=== PATIENT | male | born 1940 | race Caucasian/White ===

== ENCOUNTER 2021-05-13 12:12 | Inpatient (IN) ==
[2021-05-13] MEDS ORDERED: ACETAMINOPHEN 1,000 MG/100 ML VIAL IV STA (13:43)
[2021-05-13] MEDS ORDERED: SODIUM CHLORIDE 0.9% 1000ML 2,000 ML IV ONE (13:43)
[2021-05-13] MEDS ORDERED: SODIUM CHLORIDE 0.9% 1000ML 1,000 ML IV ONE ×2 (13:50→21:00)
[2021-05-13] MEDS ORDERED: KETOROLAC TROMETHAMINE 15 MG/ML VIAL IV STA (13:50)
--- NOTE | 2021-05-13 14:04 | XRay Report ---
XR chest 1V portable CLINICAL HISTORY: Atypical chest pain COMPARISON STUDY: No previous studies for comparison. FINDINGS: The heart is the upper limits of normal in size. There is no failure. There is no focal pul monary consolidation. There are no pleural effusions.[ IMPRESSION: No active disease in the chest. ACT 112: Negative or not required by law. Electronically signed by: Alen Javed M.D. 05/13/2021 2:03 PM
[2021-05-13 14:21] LABS: Basophils # (auto) 0.01 K/uL (0-0.2); Basophils % (auto) 0.1 %; Eosinophils # (auto) 0.01 K/uL (0-0.5); Eosinophils % (auto) 0.1 %; Hematocrit (blood only) 41.9 % (42-52); Hemoglobin 13.8 g/dL (14.0-18.0); Lymphocytes # (auto) 0.74 K/uL (1.2-3.4); Lymphocytes % (auto) 8.6 %; Mean Corpuscular Hemoglobin 32.8 pg (25-34); Mean Corpuscular Hgb Conc 32.9 g/dL (32-36); Mean Corpuscular Volume 99.5 fL (80-100); Monocytes # (auto) 0.38 K/uL (0.11-0.59); Monocytes % (auto) 4.4 %; Neutrophils # (auto) 7.44 K/uL (1.4-6.5); Neutrophils % (auto) 86.8 %; Platelet Count 145 K/uL (130-400); RDW Coefficient of Variation 13.1 % (11.5-14.5); RDW Standard Deviation 47.5 fL (36.4-46.3); Red Blood Count 4.21 M/uL (4.7-6.1); White Blood Count 8.58 K/uL (4.8-10.8)
[2021-05-13 14:31] LABS: Partial Thromboplastin Ratio 0.9; Partial Thromboplastin Time 24.7 Seconds (21.0-31.0)
[2021-05-13 14:48] LABS: Albumin Level 4.1 gm/dl (3.4-5.0); BUN Creatinine Ratio 29.3 (10-20); Bilirubin Direct 0.1 mg/dl (0-0.2); Calcium 9.1 mg/dl (8.5-10.1); Creatinine Clr Calc Pharmacy 58.6 ml/min; Est GFR (African American) 69.5 ml/min; Magnesium 2.3 mg/dl (1.8-2.4); Potassium 4.8 mmol/L (3.5-5.1)
[2021-05-13 15:02] LABS: Bilirubin,Total 0.5 mg/dl (0.2-1); Thyroid Stimulating Hormone 3.25 uIu/ml (0.300-4.500); Total Protein 8.1 gm/dl (6.4-8.2); Troponin I 0.102 ng/ml (0-0.045)
[2021-05-13] MEDS ORDERED: ASPIRIN CHEW 324 MG PO STA (15:22)
--- NOTE | 2021-05-13 15:28 | Emergency Department Note ---
Impression & Plan Elevated troponin, Back pain, Dizziness ED Provider Note NAME: RO GREENE AGE: 80 SEX: M ARRIVES VIA: Walk-In INFORMANT: Patient, ED PROVIDER(S): Hammad Thurman MD CHIEF COMPLAINT: Back pain, dizziness, sweating PLAN: Disposition: Admit MEDICAL DECISION MAKING: The patient is a pleasant 80-year-old gentleman with a past medical history of hypertension, hyperlipidemia who presents emerge department accompanied by his w josephine after having severe backslash shoulder pain, lightheadedness and diaphoresis approximately noon when he was mowing the lawn for approximately an hour. Patient's reports she came inside and found him on the ground because he felt lying on the ground was cooler and he felt better. Upon arrival the patient denies any current symptoms. He denies any chest pain or shortness of breath associated with the episode. He denies any recent pattern of exertional chest pain. Prior today denies any fevers, chills, cough, congestion, GI or symptoms. On arrival patient is fatigued appearing but no acute distress, afebrile stable vital signs. He is mild reproducible muscular discomfort of the by lateral trapezius muscles. He appears clinically dry. Exam is otherwise unremarkable. EKG shows no overt acute ischemia however does show evidence of inferior infarct. WBC and platelets within normal limits. H/H 13 point/41.9 without prior values for comparison. Chemistry without metabolic acidosis. Electrolytes and LFTs unremarkable. Troponin was marginally elevated at 0.1 without prior values for comparison. Lipase not elevated. TSH within normal limits. Given the patient's symptoms which did occur with exertion and troponin which is mildly elevated 0.1 reasonable to admit the patient for further evaluation. However given the patient is asymptomatic at this time and did not report chest pain less likely to represent acute NE however will continue to trend troponin and monitor symptoms. Additionally, given the patient has not had tearing or pleuritic pain acute aortic pathology or PE is not likely. The patient and his at the bedside are in agreement with plan for admission. Case was discussed with Dr. Phillips, [facility] hospitalist, who will evaluate the patient for admission. Triage Nursing notes reviewed and agree them. Prior medical records reviewed Vital Signs: reviewed and remarkable for no significant abnormalities Differential diagnosis: Infection, dehydration, metabolic abnormality, hypo/hyperglycemia, electrolyte disturbance, anemia, hypoxia, cardiac sources, intracerebral event, toxicologic, neurologic, as well as other pathologies. ER treatment provided: See below. Diagnostics interpreted by me: ECG: Normal sinus rhythm, 65 bpm, no ectopy, evidence of inferior infarct new from prior. No overt ST elevation or depression, QTC 440, QRS 88. Cardiac Monitoring: An order for continuous cardiac monitoring was placed and demonstrated normal sinus rhythm, 65 bpm, no ectopy Laboratory studies: See below Imaging studies: See below Consultation(s): Dr. Phillips, [facility] hospitalist. HPI: The patient is a pleasant 80-year-old gentleman with a past medical history of hypertension, hyperlipidemia who presents emerge department accompanied by his after having severe backslash shoulder pain, lightheadedness and diaphoresis approximately noon when he was mowing the lawn for approximately an hour. Patient's reports she came inside and found him on the ground because he felt lying on the ground was cooler and he felt better. Upon arrival the patient denies any current symptoms. He denies any chest pain or shortness of breath associated with the episode. He denies any recent pattern of exertional chest pain. Prior today denies any fevers, chills, cough, congestion, GI or symptoms. ROS: See above HPI for pertinent positives & negatives. A total of 10 systems reviewed and were otherwise negative. PAST MEDICAL HISTORY:See Below PAST SURGICAL HISTORY:See Below FAMILY HISTORY:See Below SOCIAL HISTORY:See Below HOME MEDICATIONS:See Below ALLERGIES:See Below VITALS:See Below PHYSICAL EXAMINATION: GENERAL: Awake, alert, fatigued-appearing, in no distress HENT: Normocephalic, atraumatic. Oropharynx with dry mucous membranes and otherwise unremarkable. EYES: Normal conjunctiva. Sclera non-icteric. NECK: Supple. No nuchal rigidity. FROM. No JVD. RESPIRATORY: Clear to auscultation. CARDIAC: Regular rate, normal rhythm. Extremities warm and well perfused. Pulses equal. ABDOMEN: Soft, non-distended. No tenderness to palpation. No rebound or guarding. No masses. RECTAL: Deferred. MUSCULOSKELETAL: Chest examination reveals no tenderness. The back is symmetrical on inspection without obvious abnormality. There is no CVA tenderness to palpation. No joint edema. LOWER EXTREMITIES: Calves are equal size bilaterally and non-tender. No edema. No discoloration. NEURO: Normal sensorium. No sensory or motor deficits noted. SKIN: No rash or jaundice noted. Hammad Thurman MD Past Med/Surg History Medical History CKD (chronic kidney disease), stage III Dyslipidemia HTN (hypertension) with goal to be determined Moderate aortic stenosis Surgical History H/O lithotripsy Social History Smoking Status: Former smoker Hx Alcohol Use: No Feels Safe at Home: Yes Allergies Allergies Allergy/AdvReac Type Severity Reaction Status Date / Time No Known Allergies Allergy Unknown Unverified 05/13/21 14:54 [id number] Allergy Unknown . Uncoded 05/13/21 14:54 Home Meds Home Medications Medication Instructions Recorded Confirmed amlodipine 5 mg PO DAILY 05/13/21 05/13/21 aspirin 81 mg PO DAILY 05/13/21 05/13/21 hydrocortisone 1 applic [place] HS 05/13/21 05/13/21 lisinopril 40 mg PO DAILY 05/13/21 05/13/21 simvastatin 20 mg PO DAILY 05/13/21 05/13/21 Results & Data (ED) Vital Signs Vital Signs - 24 hr 05/13/21 12:27 05/13/21 14:16 05/13/21 14:30 Temperature 36 C L Temperature Source Skin Pulse Rate 66 65 62 Pulse Rate [Right Finger] Respiratory Rate 20 14 21 Respiratory Effort / Characteristics Non-Labored Spontaneous Respiratory Depth Normal Blood Pressure 126/71 Blood Pressure [Right Arm] Blood Pressure Mean 89 Blood Pressure Mean [Right Arm] Blood Pressure Position Sitting Blood Pressure Position [Right Arm] Pulse Oximetry 95 Oxygen Delivery Method Room Air Sepsis Recent Fever Within 48 Hours No Sepsis New/Unexplained Change in Mental Status N/A Sepsis Action Taken by Nursing No Action Required 05/13/21 15:19 05/13/21 17:45 05/13/21 17:54 Temperature Temperature Source Pulse Rate Pulse Rate [Right Finger] 74 72 Respiratory Rate 20 17 Respiratory Effort / Characteristics Non-Labored Spontaneous Non-Labored Respiratory Depth Normal Normal Blood Pressure Blood Pressure [Right Arm] 118/65 141/69 H Blood Pressure Mean Blood Pressure Mean [Right Arm] 82 93 Blood Pressure Position Blood Pressure Position [Right Arm] Sitting Sitting Pulse Oximetry 97 95 Oxygen Delivery Method Room Air Room Air Room Air Sepsis Recent Fever Within 48 Hours Sepsis New/Unexplained Change in Mental Status Sepsis Action Taken by Nursing Laboratory Data Attestation: I reviewed the patient's lab results. Result diagrams: 05/13/21 13:44 05/13/21 13:44 Lab Results 05/13/21 05/13/21 05/13/21 Range/Units 13:44 13:44 13:44 WBC 8.58 (4.8-10.8) K/uL RBC 4.21 L (4.7-6.1) M/uL Hgb 13.8 L (14.0-18.0) g/dL Hct 41.9 L (42-52) % MCV 99.5 (80-100) fL MCH 32.8 (25-34) pg MCHC 32.9 (32-36) g/dL RDW Std Deviation 47.5 H (36.4-46.3) fL RDW Coeff of Kaiden 13.1 (11.5-14.5) % Plt Count 145 (130-400) K/uL MPV 11.0 H (7.4-10.4) fL Immature Gran % (Auto) 0.0 % Neut % (Auto) 86.8 % Lymph % (Auto) 8.6 % Linn % (Auto) 4.4 % Eos % (Auto) 0.1 % Baso % (Auto) 0.1 % Neut # (Auto) 7.44 H (1.4-6.5) K/uL Lymph # (Auto) 0.74 L (1.2-3.4) K/uL Linn # (Auto) 0.38 (0.11-0.59) K/uL Eos # (Auto) 0.01 (0-0.5) K/uL Baso # (Auto) 0.01 (0-0.2) K/uL Immature Gran # (Auto) 0.00 (0.00-0.02) K/uL APTT 24.7 (21.0-31.0) Seconds PTT Ratio 0.9 Sodium 140 (136-145) mmol/L Potassium 4.8 (3.5-5.1) mmol/L Chloride 109 H (98-107) mmol/L Carbon Dioxide 25 (21-32) mmol/L Anion Gap 6.0 (3-11) BUN 34 H (7-18) mg/dl Creatinine 1.16 (0.6-1.4) mg/dl Est Cr Clr Drug Dosing 58.6 ml/min Est GFR ( Amer) 69.5 ml/min Est GFR (Non-Af Amer) 60.0 ml/min BUN/Creatinine Ratio 29.3 H (10-20) Glucose 122 H (70-99) mg/dl Calcium 9.1 (8.5-10.1) mg/dl Phosphorus 3.0 (2.5-4.9) mg/dl Magnesium 2.3 (1.8-2.4) mg/dl Total Bilirubin 0.5 (0.2-1) mg/dl Direct Bilirubin 0.1 (0-0.2) mg/dl AST 20 (15-37) U/L ALT 26 (12-78) U/L Alkaline Phosphatase 90 (45-117) U/L Troponin I 0.102 H* (0-0.045) ng/ml Total Protein 8.1 (6.4-8.2) gm/dl Albumin 4.1 (3.4-5.0) gm/dl Globulin 4.0 (2.5-4.0) gm/dl Albumin/Globulin Ratio 1.0 (0.9-2) Lipase 125 (73-393) U/L TSH 3.250 (0.300-4.500) uIu/ml COVID-19 Eval Order SARS-CoV-2 (PCR) (Negative) 05/13/21 05/13/21 Range/Units 16:00 16:00 WBC (4.8-10.8) K/uL RBC (4.7-6.1) M/uL Hgb (14.0-18.0) g/dL Hct (42-52) % MCV (80-100) fL MCH (25-34) pg MCHC (32-36) g/dL RDW Std Deviation (36.4-46.3) fL RDW Coeff of Kaiden (11.5-14.5) % Plt Count (130-400) K/uL MPV (7.4-10.4) fL Immature Gran % (Auto) % Neut % (Auto) % Lymph % (Auto) % Linn % (Auto) % Eos % (Auto) % Baso % (Auto) % Neut # (Auto) (1.4-6.5) K/uL Lymph # (Auto) (1.2-3.4) K/uL Linn # (Auto) (0.11-0.59) K/uL Eos # (Auto) (0-0.5) K/uL Baso # (Auto) (0-0.2) K/uL Immature Gran # (Auto) (0.00-0.02) K/uL APTT (21.0-31.0) Seconds PTT Ratio Sodium (136-145) mmol/L Potassium (3.5-5.1) mmol/L Chloride (98-107) mmol/L Carbon Dioxide (21-32) mmol/L Anion Gap (3-11) BUN (7-18) mg/dl Creatinine (0.6-1.4) mg/dl Est Cr Clr Drug Dosing ml/min Est GFR ( Amer) ml/min Est GFR (Non-Af Amer) ml/min BUN/Creatinine Ratio (10-20) Glucose (70-99) mg/dl Calcium (8.5-10.1) mg/dl Phosphorus (2.5-4.9) mg/dl Magnesium (1.8-2.4) mg/dl Total Bilirubin (0.2-1) mg/dl Direct Bilirubin (0-0.2) mg/dl AST (15-37) U/L ALT (12-78) U/L Alkaline Phosphatase (45-117) U/L Troponin I (0-0.045) ng/ml Total Protein (6.4-8.2) gm/dl Albumin (3.4-5.0) gm/dl Globulin (2.5-4.0) gm/dl Albumin/Globulin Ratio (0.9-2) Lipase (73-393) U/L TSH (0.300-4.500) uIu/ml COVID-19 Eval Order Covid19 at [facility] SARS-CoV-2 (PCR) NEGATIVE (Negative) Administered Medications Discontinued Medications Aspirin (Aspirin Chew 324 Mg) 324 mg PO NOW STA Stop: 05/13/21 15:23 Last Admin: 05/13/21 15:59 Dose: 324 mg Documented by: [id number] Sodium Chloride (Nss 1000ml) 2,000 mls @ 999 mls/hr IV .Q2H1M ONE Stop: 05/13/21 15:43 Last Infusion: 05/13/21 16:20 Dose: 0 mls/hr Documented by: [id number] Admin: 05/13/21 14:18 Dose: 999 mls/hr Documented by: [id number] Acetaminophen (Ofirmev) 1,000 mg in 100 mls @ 400 mls/hr IV NOW STA Stop: 05/13/21 13:57 Last Admin: 05/13/21 14:22 Dose: Not Given Documented by: [id number] Sodium Chloride (Nss 1000ml) 1,000 mls @ 999 mls/hr IV .Q1H1M ONE Stop: 05/13/21 14:50 Last Infusion: 05/13/21 15:59 Dose: 0 mls/hr Documented by: [id number] Admin: 05/13/21 14:16 Dose: 999 mls/hr Documented by: [id number] Ketorolac Tromethamine (Ketorolac Tromethamine 15 Mg/Ml Vial) 15 mg IV NOW STA Stop: 05/13/21 13:51 Last Admin: 05/13/21 14:15 Dose: 15 mg Documented by: [id number] Imaging Data Radiologist's Impression: Chest X-Ray 05/13/21 13:44 XR chest 1V portable CLINICAL HISTORY: Atypical chest pain COMPARISON STUDY: No previous studies for comparison. FINDINGS: The heart is the upper limits of normal in size. There is no failure. There is no focal pulmonary consolidation. There are no pleural effusions.[ IMPRESSION: No active disease in the chest. ACT 112: Negative or not required by law. Electronically signed by: Alen Javed M.D. 05/13/2021 2:03 PM Discharge Plan Visit Data Chief Complaint: Illness Stated Complaint: MOWING GRASS/EXHAUSTION/SWEATING/ACHEY ED Provider: Hammad Thurman Discharge Problem: Elevated troponin, Back pain, Dizziness Discharge Instructions Interventions: ED Discharge Assessment Last Done: 05/13/21 17:54 Forms Stand Alone Forms: [facility] Prescriptions Prescriptions: No Action amlodipine 5 mg tablet 5 mg PO DAILY RF: 0 hydrocortisone 2.5 % cream with perineal applicator 1 applic [place] HS RF: 0 lisinopril 40 mg tablet 40 mg PO DAILY RF: 0 simvastatin 20 mg tablet 20 mg PO DAILY RF: 0 aspirin 81 mg PO DAILY RF: 0 Referrals Referrals: Sai Mason MD [Primary Care Provider] - Discharge Problem: Back pain Qualifiers: Back pain location: thoracic back pain Chronicity: acute Back pain laterality: bilateral Qualified Code(s): M54.6 - Pain in thoracic spine
--- NOTE | 2021-05-13 15:30 | Electrocardiogram Report ---
Test Reason : Blood Pressure : / mmHG Vent. Rate : 065 BPM Atrial Rate : 065 BPM P-R Int : 186 ms QRS Dur : 088 ms QT Int : 424 ms P-R-T Axes : 021 043 055 degrees QTc Int : 440 ms Normal sinus rhythm Poor R wave progression, consider anterior NH vs. lead placement vs. LVH Early repolarization Abnormal ECG When compared with ECG of 22-NOV-2003 09:59, No significant change Confirmed by Damian Murillo ([id number]) on 05/13/2021 3:29:58 PM Referred By: REFERRED SELF Confirmed By:Damian Murillo
--- NOTE | 2021-05-13 15:44 | History & Physical Report ---
Date of Service May 13, 2021 Assessment & Plan (1) Elevated troponin: Elevated Troponin R/O ACS Risk factors: H/O HTN, HLP, Former Tobacco use disorder, Obesity Initial troponin:0.1 EKG shows: Normal sinus rhythm, poor R wave progression, early repolarization. QTc 440 CXR: Last ECHO: EF: 60 to 64%, grade 1 diastolic dysfunction, mild aortic regurgitation, moderate aortic stenosis. Trend serial cardiac enzymes, repeat EKG, fasting lipid panel in AM Continue Aspirin, statins Oxygen PRN NPO after midnight Cardiology consult Consider to start IV heparin if troponin trends upwards or if patient develops chest pain Repeat EKG in AM Right Shoulder Pain Likely musculoskeletal origin Reproducible pain Consider imaging if needed Hypertension Continue lisinopril, amlodipine Hyperlipidemia Continue statin CKD stage III Baseline creatinine 1.2-1.3 Cr at baseline Monitor renal function DVT Px: Heparin SQ CODE STATUS Full code Disposition Expected discharge home when medically stable. History of Present Illness Chief Complaint: Shoulder Pain, Elevated Troponin Primary Care Provider: Sai Mason MD Patient is a 80-year-old male with history of CKD stage III, hypertension, moderate aortic stenosis, hearing impairment, macular degeneration of right eye and other medical problems presents with history of fatigue, diaphoresis, right shoulder pain which started this afternoon. Patient admits to moving his lawn for about 1 hour and felt extremely exhausted, associated with diaphoresis and right shoulder pain resulting in to lay on the floor which helped with the symptoms. He also states having nausea and chills but no vomiting. He denies any coronary artery disease in the past. Right shoulder pain is achy,7/10, nonradiating, no aggravating or relieving factors, not associated with tingling or numbness in her fingers. He was noted to have elevated troponins while in ED but denied any chest pain. Denies any history of Dyspnea, Fall, syncopal episode, loss of consciousness, trauma to right shoulder, palpitations, dizziness, cough, fever, chills, head trauma, headache, vomiting, abdominal pain, diarrhea, dysuria, hematuria, recent change in medications. Allergies Allergy/AdvReac Type Severity Reaction Status Date / Time No Known Allergies Allergy Unknown Unverified 05/13/21 14:54 [id number] Allergy Unknown . Uncoded 05/13/21 14:54 Home Medications Medication Instructions Recorded Confirmed Type amlodipine 5 mg PO DAILY 05/13/21 05/13/21 History aspirin 81 mg PO DAILY 05/13/21 05/13/21 History hydrocortisone 1 applic [place] HS 05/13/21 05/13/21 History lisinopril 40 mg PO DAILY 05/13/21 05/13/21 History simvastatin 20 mg PO DAILY 05/13/21 05/13/21 History Past Med/Surg History Medical History CKD (chronic kidney disease), stage III Dyslipidemia HTN (hypertension) with goal to be determined Moderate aortic stenosis Surgical History H/O lithotripsy Social History Smoking Status: Former smoker Hx Alcohol Use: No Feels Safe at Home: Yes Review of Systems Review of Systems: All systems reviewed & are unremarkable except as noted in HPI & below Physical Exam Physical Exam: Physical Exam: Vitals signs as noted above General Appearance:Moderately built and nourished, no apparent distress Head: normocephalic, Atraumatic Eyes: normal inspection, EOMI Neck: supple, Trachea midline Respiratory/Chest: Decrease breath sounds, CTA, No accessory muscle use Cardiovascular: S1, S2, + murmur Abdomen/GI:Soft, Non tender, Bowel sounds present Extremities/Musculoskeletal:normal inspection, no edema, R shoulder tender Neurologic/Psych:AAOX3, grossly no focal neurological deficits Skin: normal color, warm Results & Data Results & Data ([facility]) Vital Signs (Past 12 Hours) Vital Signs Temp Pulse Pulse Resp BP BP Pulse Ox 05/13/21 15:19 74 20 118/65 97 05/13/21 14:30 62 21 05/13/21 14:16 65 14 05/13/21 12:27 36 C L 66 20 126/71 95 Laboratory Results Short CBC 05/13/21 Range/Units 13:44 WBC 8.58 (4.8-10.8) K/uL Hgb 13.8 L (14.0-18.0) g/dL Hct 41.9 L (42-52) % Plt Count 145 (130-400) K/uL BMP 05/13/21 13:44 Sodium 140 Potassium 4.8 Chloride 109 H Carbon Dioxide 25 BUN 34 H Creatinine 1.16 Glucose 122 H Calcium 9.1 Cardiac Enzymes 05/13/21 Range/Units 13:44 Troponin I 0.102 H* (0-0.045) ng/ml Liver Function 05/13/21 Range/Units 13:44 Total Bilirubin 0.5 (0.2-1) mg/dl Direct Bilirubin 0.1 (0-0.2) mg/dl AST 20 (15-37) U/L ALT 26 (12-78) U/L Alkaline Phosphatase 90 (45-117) U/L Albumin 4.1 (3.4-5.0) gm/dl Diagnostic Findings CXR: No active disease in the chest. ECG Additional Comments: EKG: Normal sinus rhythm, poor R wave progression, early repolarization.
[2021-05-13] MEDS ORDERED: POLYETHYLENE (MIRALAX) 17 GM PACK PO PRN (18:32)
[2021-05-13] MEDS ORDERED: ACETAMINOPHEN 325 MG TAB PO PRN (18:32)
[2021-05-13] MEDS ORDERED: ONDANSETRON INJ 2 MG/ML 2 ML VIAL IV PRN (18:32)
[2021-05-13] MEDS ORDERED: NITROGLYCERIN SL 0.4 MG/TAB TAB SL PRN (18:32)
[2021-05-13] MEDS ORDERED: SIMVASTATIN 20 MG TAB PO SCH (21:00)
[2021-05-13] MEDS ORDERED: Heparin IV Adult Wt-Based Standard WITH Bolus Protocol IV SCH (21:18)
[2021-05-13] MEDS ORDERED: HEPARIN SOD (PORCINE) 1000 UNIT/ML IV ONE (21:32)
[2021-05-13] MEDS ORDERED: HEPARIN SOD 5,000 UNIT/0.5 ML VIAL SQ SCH (22:00)
[2021-05-13] MEDS: HEPARIN SODIUM/DEXTROSE 25,000 UNITS/500 ML BAG IV SCH (22:34)
[2021-05-13 23:40] LABS: Appearance Urine Clear (Clear); Bilirubin Urine Negative (Negative); Blood Urine Negative (Negative); Color Urine Yellow; Glucose Urine UA Negative (Negative); Ketones Urine Trace (Negative); Leukocyte Esterase Urine Negative (Negative); Nitrite Urine Negative (Negative); Protein Urine Negative (Negative); Specific Gravity Urine 1.016 (1.000-1.030); Urobilinogen Urine Negative (Negative)
[2021-05-14 05:06] LABS: Hematocrit (blood only) 37.6 % (42-52); Hemoglobin 12.3 g/dL (14.0-18.0); Mean Corpuscular Hemoglobin 32.4 pg (25-34); Mean Corpuscular Hgb Conc 32.7 g/dL (32-36); Mean Corpuscular Volume 98.9 fL (80-100); Mean Platelet Volume 10.9 fL (7.4-10.4); Platelet Count 133 K/uL (130-400); RDW Coefficient of Variation 13.2 % (11.5-14.5); RDW Standard Deviation 47.6 fL (36.4-46.3); White Blood Count 6.04 K/uL (4.8-10.8)
[2021-05-14 05:27] LABS: Partial Thromboplastin Ratio > 5.3
[2021-05-14 05:35] LABS: BUN Creatinine Ratio 26.3 (10-20); Calcium 8.4 mg/dl (8.5-10.1); Creatinine Clr Calc Pharmacy 62.3 ml/min; Est GFR (Non-African American) 64.7 ml/min; Potassium 4.5 mmol/L (3.5-5.1)
[2021-05-14 06:00] LABS: Troponin I 14.5 ng/ml (0-0.045)
[2021-05-14 06:05] LABS: Partial Thromboplastin Time > 139.0 Seconds (21.0-31.0)
[2021-05-14 06:29] LABS: Estimated Average Glucose 140 mg/dl; Hemoglobin A1C 6.5 % (4.5-5.6)
[2021-05-14] MEDS ORDERED: Nursing to Pharmacy Communication SCH (06:30)
[2021-05-14] MEDS ORDERED: PERFLUTREN LIPID MICROSPHERE (DEFINITY) IV ONE (07:09)
[2021-05-14] MEDS: lisinopril 40 MG TAB PO SCH (08:31)
[2021-05-14] MEDS: amLODIPine BESYLATE 5 MG TAB PO SCH (08:32)
[2021-05-14] MEDS: ASPIRIN 81 MG ECTAB PO SCH (08:32)
[2021-05-14] MEDS: METOPROLOL TARTRATE 25 MG TAB PO SCH ×2 (08:32→20:10)
[2021-05-14 09:03] LABS: Partial Thromboplastin Ratio 2.4
[2021-05-14 09:08] LABS: Partial Thromboplastin Time 62.6 Seconds (21.0-31.0)
--- NOTE | 2021-05-14 09:23 | Cardiology Consultation ---
Date of Consultation May 14, 2021 Assessment & Plan (1) Non-ST elevation (NSTEMI) myocardial infarction: Risk, benefits, alternatives to cardiac catheterization discussed with patient. He is agreeable to proceed with coronary angiography left heart catheterization this a.m. Intravenous heparin we placed on hold. Review of resting 2D transthoracic echocardiogram with regional wall motion abnormalities suggesting ischemic heart disease as described above. Continue beta-radha, aspirin, and YANI inhibitor. Discontinue simvastatin in favor of atorvastatin 80 mg daily. (2) Moderate aortic stenosis: Aortic valve systolic gradients have progressed when compared to most recent echocardiogram available [facility] medical [facility]. (3) HTN (hypertension) with goal to be determined: Fair control. Continue beta-radha and YANI inhibitor. (4) CKD (chronic kidney disease), stage III: Continue IV hydration. History of Present Illness Reason for Consultation: NSTEMI Requesting Physician: Dr. Burgess Attending Physician: Isaias Burgess DO History of Present Illness 80-year-old patient presented to the emergency department with interscapular discomfort or shortness of breath. Patient mowing his lawn yesterday when he developed interscapular discomfort, shortness of breath, and diaphoresis. He came in the house and lie down. Took 2 Tylenol with mild improvement. Proceeded to the ER for further evaluation. Initial ECG with lateral ST elevation deemed early repolarization. Troponin trending upward overnight. Preliminary review of resting 2D transthoracic echocardiogram performed this a.m. demonstrates a lateral, posterior lateral, apical wall motion abnormality with mildly reduced LV systolic function. There is moderate aortic valve stenosis. Patient is currently resting comfortably. Notes occasional exertional chest discomfort and shortness of breath over the preceding months. No orthopnea, PND, or lower extremity edema. Denies palpitations, lightheadedness, dizziness, syncope, or near syncope. Allergies Allergy/AdvReac Type Severity Reaction Status Date / Time No Known Allergies Allergy Unknown Unverified 05/13/21 14:54 [id number] Allergy Unknown . Uncoded 05/13/21 14:54 Home Medications Medication Instructions Recorded Confirmed Type amlodipine 5 mg PO DAILY 05/13/21 05/13/21 History hydrocortisone 1 applic [place] HS 05/13/21 05/13/21 History lisinopril 40 mg PO DAILY 05/13/21 05/13/21 History aspirin 81 mg PO DAILY #90 tab 05/15/21 Rx atorvastatin 80 mg PO QAM #30 tab 05/15/21 Rx metoprolol tartrate 12.5 mg PO BID #30 tab 05/15/21 Rx nitroglycerin [Nitrostat] 0.4 mg SUBLINGUAL UD PRN #30 tab 05/15/21 Rx Patient History Medical History CKD (chronic kidney disease), stage III Dyslipidemia HTN (hypertension) with goal to be determined Moderate aortic stenosis Surgical History H/O lithotripsy Social History Smoking Status: Never smoker Hx Alcohol Use: No Hx Substance Use: No Communication Ability: Effective Beliefs That Will Affect Care: None Current Living Situation: Spouse Other Information That Helps Us Care for You: Yes Feels Safe at Home: Yes Safety Concerns: Feels Safe At This Time Assistive Devices: None Review of Systems Review of Systems: All systems reviewed & are unremarkable except as noted in Subjective Physical Exam Constitutional: well developed and well nourished; no acute distress Respiratory: normal respiratory effort; no respiratory distress, no labored breathing and no retractions Auscultation: lungs clear to auscultation bilaterally; no crackles, no rales, no rhonchi and no wheezes Cardiovascular: Rate/Rhythm: regular rate and regular rhythm Heart Sounds: normal S1, normal S2 and + murmur (3/6 PERLITA) Vessels: femoral pulses present and radial pulses present; no JVD Extremities: no edema Gastrointestinal (Abdomen): Inspection/Auscultation: abdomen normal to inspection and normal bowel sounds; abdomen not distended Percussion/Palpation: abdomen soft; abdomen nontender, no guarding and abdomen not rigid Neurologic: CN's II-XI intact bilaterally and moves all extremities; no focal motor deficits Motor/Sensory: no tremor Psychiatric: A+Ox3, euthymic affect Results & Data ([facility]) Vital Signs (Past 12 Hours) Vital Signs Temp Pulse Pulse Resp BP Pulse Ox 05/14/21 07:36 37.0 C 68 20 148/86 H 95 05/14/21 04:03 36.6 C 67 18 137/78 94 05/13/21 23:37 72 05/13/21 22:59 36.6 C 72 18 149/70 H 95
--- NOTE | 2021-05-14 09:26 | Hospitalist Progress Note ---
Date of Service May 14, 2021 Assessment & Plan (1) Elevated troponin: Rising Troponin/NSTEMI Risk factors: H/O HTN, HLP, Former Tobacco use disorder, Obesity Initial troponin:0.1 EKG shows: Normal sinus rhythm, poor R wave progression, early repolarization. QTc 440 CXR: Last ECHO: EF: 60 to 64%, grade 1 diastolic dysfunction, mild aortic regurgitation, moderate aortic stenosis. Trend serial cardiac enzymes, repeat EKG, fasting lipid panel in AM Continue Aspirin, statins Oxygen PRN NPO Cardiology on case Echo done IV heparin Right Shoulder Pain Likely musculoskeletal origin Hypertension Continue lisinopril, amlodipine Hyperlipidemia Continue statin CKD stage III Baseline creatinine 1.2-1.3 Cr at baseline Monitor renal function DVT Px: IV Heparin CODE STATUS Full code Disposition DC home when medically stable. Labs checked ROS-No Headache, No Visual Changes, No Nausea, No Vomiting, No Fever, No Chills, No Neck Pain or Stiffness, No Chest Pain, No Palpitations, No SOB, No ARIZMENDI, No Cough, No Sputum, No Wheezing, No Abdominal Pain, No Diarrhea, No Hematemesis, No Hemoptysis, No Unexpected Weight Loss, No Flank pain, No Melena, No Hematochezia, No Frequency, No Urgency, No Burning, No Hematuria, No Rashes, No Diaphoresis. Appetite is Normal Physical Exam Gen-AAO x 3, NAD, Afebrile Head-NCAT, EOMI, PERRLA, Anicteric Sclera, No Posterior Pharyngeal Erythema Neck-Supple, No JVD, No Thyromegaly, No Masses, No LAD, No Bruits Lungs-Clear to Auscultation Bilaterally, No Rales, No Rhonchi, No Wheezing, No Crepitus Chest-No S4, +S1, +S2, No S3, No Murmurs, No Rubs, No Gallops, No Ectopy Abdomen-Soft, Bowel Sounds Present, Non Tender, Non Distended, No Hepatomegaly, No Splenomegaly, No Palpable Masses, No Rebound, No Rigidity, No Guarding Musculoskeletal-Full Range of Motion Bilaterally, No CVAT Extremities-No Cyanosis, No Clubbing, No Edema Nuero-Cranial Nerves II-XII grossly intact, Motor WNL, DTRs WNL, Strength WNL, Non Focal Psych-Normal Mood Admission and Anticipated Discharge Date Admission Date: May 13, 2021 Results & Data Results & Data ([facility]) Vital Signs (Past 12 Hours) Vital Signs Temp Pulse Pulse Resp BP Pulse Ox 05/14/21 07:36 37.0 C 68 20 148/86 H 95 05/14/21 04:03 36.6 C 67 18 137/78 94 05/13/21 23:37 72 05/13/21 22:59 36.6 C 72 18 149/70 H 95
--- NOTE | 2021-05-14 09:31 | XRay Report ---
XR chest 1V portable HISTORY: 80 years-old Male sob acute shortness of breath COMPARISON: Chest radiograph 05/13/2021 TECHNIQUE: Portable AP view of the chest FINDINGS: Cardiac mediastinal and hilar silhouettes are within normal limits. No pneumothorax, pleural effusion , airspace consolidation or overt pulmonary edema. The bones of the chest appear grossly intact. IMPRESSION: No acute process. ACT 112: Negative or not required by law. The above report was generated using voice recognition software. It may contain grammatical, syntax o r spelling errors. Electronically signed by: Ravi Rodriguez M.D. 05/14/2021 9:30 AM
[2021-05-14] MEDS: ATORVASTATIN 40 MG TAB PO SCH (10:21)
[2021-05-14] MEDS ORDERED: niCARdipine HCL INJ 2.5 MG/ML 10 ML AMP ONE (10:55)
[2021-05-14] MEDS ORDERED: fentaNYL citrate 100 MCG/2 ML VIAL ONE ×2 (10:55→12:44)
[2021-05-14] MEDS ORDERED: HEPARIN (PORCINE) 1000 UNIT/ML 10 ML (CATH LAB USE ONLY) ONE ×2 (10:55→13:11)
[2021-05-14] MEDS ORDERED: MIDAZOLAM HCL 1 MG/ML 2ML VIAL ONE ×3 (10:55→12:44)
[2021-05-14] MEDS ORDERED: NITROGLYCERIN/D5W 100MCG/ML 20ML SYR ONE (10:56)
--- NOTE | 2021-05-14 11:12 | Pre Anesthesia Assessment ---
Date of Service May 14, 2021 Pre Sedation Assessment Vital Signs Temp Pulse Pulse Resp BP BP Pulse Ox 05/15/21 07:58 36.7 C 71 18 127/72 96 05/15/21 07:51 37.0 C 75 18 117/71 143/83 H 95 05/15/21 07:24 89 05/15/21 04:02 37.0 C 75 18 117/71 95 05/15/21 00:20 67 05/14/21 23:33 36.8 C 70 18 137/78 94 05/14/21 20:03 36.7 C 84 18 148/83 H 94 05/14/21 17:35 36.6 C 73 20 150/79 H 95 05/14/21 16:00 36.6 C 65 20 156/87 H 96 05/14/21 15:34 63 20 143/83 H 95 05/14/21 15:05 72 20 172/83 H 96 05/14/21 15:00 71 05/14/21 14:55 84 20 151/76 H 95 05/14/21 14:30 62 18 132/67 98 05/14/21 14:15 61 18 129/70 98 05/14/21 14:00 59 L 18 130/65 98 05/14/21 13:45 65 18 137/66 98 Cardiovascular + regular rate and + regular rhythm + murmur Respiratory normal respiratory effort, lungs clear to auscultation Pre-Sedation Airway Assessment Smoking Status: Never smoker Hx Sleep Apnea: No Short, Thick Neck: No Thyromental Distance: > or= 3.5 Finger Breadths Oral Cavity: + Dentures Mallampati Class: III ASA: ASA4 NPO Status Date of Last Intake of Fluids: 05/13/21 Date of Last Intake of Solid Food: 05/13/21 Procedure Planning Contraindications for Sedation: none Current Medications Reviewed: Yes Notes The planned sedation has been discussed with the patient. Informed Consent was obtained. I have identified the patient, determined the appropriateness of sedation and have assessed the patient immediately prior to the procedure. All medicine(s) and interventions are by my order.
--- NOTE | 2021-05-14 12:12 | Post Anesthesia Assessment ---
Date of Service May 14, 2021 Post Sedation Assessment Vital Signs Temp Pulse Pulse Resp BP BP Pulse Ox 05/15/21 07:58 36.7 C 71 18 127/72 96 05/15/21 07:51 37.0 C 75 18 117/71 143/83 H 95 05/15/21 07:24 89 05/15/21 04:02 37.0 C 75 18 117/71 95 05/15/21 00:20 67 05/14/21 23:33 36.8 C 70 18 137/78 94 05/14/21 20:03 36.7 C 84 18 148/83 H 94 05/14/21 17:35 36.6 C 73 20 150/79 H 95 05/14/21 16:00 36.6 C 65 20 156/87 H 96 05/14/21 15:34 63 20 143/83 H 95 05/14/21 15:05 72 20 172/83 H 96 05/14/21 15:00 71 05/14/21 14:55 84 20 151/76 H 95 05/14/21 14:30 62 18 132/67 98 05/14/21 14:15 61 18 129/70 98 05/14/21 14:00 59 L 18 130/65 98 05/14/21 13:45 65 18 137/66 98 Recovery Score Activity: Moves 4 extremities Respiration: Deep Breath/Cough Circulation: +/-20% PreAnes Value Consciousness: Arouseable (by name) Oxygen Saturation: > 92% On Room Air Discharge Sedation Level of Care: Phase I Post Sedation Plan On clinical assessment, the patient appears to have tolerated the sedation without complications. Patient is recovering as anticipated. Patient will continue to be monitored by nursing and may be discharged when sedation discharge criteria are met per below protocol. Upon Completions of procedure up to 15 minutes continue every 5 minute vital signs and the P.A.R. score; then discharge to a Phase I or Fast Track to Phase II per the following guidelines: * Discharge Patient to appropriate Phase II area if PAR is 8 or greater or return to pre- procedure baseline. The post - procedure orders will be as directed. * If PAR score is less than 8 or not return to pre-procedure baseline then patient will follow Phase I monitoring till PAR is reached for Phase II. The Phase I may be done in procedure room or may call to secure a Phase I area. * If naloxone or flumazenil are used for reversal, hold in Phase I for continued monitoring from when last reversal dose was given for a minimum of 60 minutes or longer pending the nurse and/or physician discretion of patient condition before discharge to Phase II. Please call the Sedation Physician to re-evaluate and complete post-note for discharge to Phase II area. Do NOT discharge from procedure sedation or Phase 1 until post- sedation evaluation note is complete by procedure /sedation MD Sedation Discharge Instructions to be given to the patient at discharge to home.
--- NOTE | 2021-05-14 12:16 | Cardiac Catheterization ---
Cardiac Cath Procedure Full Procedure Date May 14, 2021 Pre-Procedure Diagnosis Pre-Procedure Diagnosis: Non STEMI and Valvular Disease AUC Score AUC Score: 8 Post-Procedure Diagnosis Post-Procedure Diagnosis: Severe CAD Procedure(s) Performed Procedure(s) Performed: Coronary Angiography and Aortography [employer] Jeff Sommers DO [employer] Developer(s) Nate RTR Estimated Blood Loss Estimated Blood Loss: 15cc Medication(s) Medication(s): Fentanyl, Heparin, Lidocaine 1%, Nicardipine, Nitroglycerin and Versed Summary of Findings Left main is a large vessel which bifurcates into the left anterior descending and left circumflex. The left main is free of significant obstructive disease. The left anterior descending artery is a large type III vessel which wraps around the left ventricular apex and supplies the distal inferior wall. The first diagonal branch vessel is diminutive, 1 mm diameter. The second diagonal branch vessel is moderate caliber, bifurcating proximally. Left anterior descending artery demonstrates diffuse luminal irregularities in the proximal and mid segment with stenosis ranging from 10-20%. The diagonal branch vessels are free of significant disease. The left circumflex is a large-caliber vessel giving rise to a first large obtuse marginal branch vessel perfusing the anterior lateral wall. The vessel courses along the AV groove and is occluded in its mid segment. The distal vessel fills with LUPE I flow. The obtuse marginal branch vessel is free of significant obstructive disease, demonstrating mild luminal irregularities, 10%. The right coronary artery was visualized via nonselective aortic root injection. The proximal and mid vessel is suboptimally visualized, however, no significant stenosis. Multiple catheters were utilized in an attempt to cannulate the right coronary artery including JR4, JR 5, 3 DRC, AR-1, [place] multipurpose catheter, August multipurpose catheter. Hemodynamics Rest Ao:: 117/67/88 Final Ao: 129/66/92 LV: N/A Recommendations Recommendations: Management Recommendatons (Attempt cannulation of the right coronary artery with 3 DRC interventional guide. If no significant disease, recommend percutaneous intervention of the left circumflex.) Specimens Specimens: None Radiation Exposure (mGy) 1468 Contrast (mls) 80 Fluids (cc crystalloids) Fluids (cc crystalloids): 140 Nss Drains Drains: N/a Anesthesia Moderate sedation. Start 1117. End 1207. 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 Any exceptions are noted below. ACC Data: Acid Splicer Cardiac Status Clinical evaluation leading to the procedure CAD Presenation: Non STEMI Anginal Classification: CCS IV Heart Failure: No Cardiogenic Shock within 24 Hours: No Cardiac Arrest within 24 Hours: No Imaging Studies Past 6 Months: Yes Stress Studies Past 6 Months: No STEMI OR Non-STEMI Symptom Onset Date: 05/13/21 Symptom Onset Time: 14:22 Thrombolytics: No Coronary Anatomy Dominant: Right Left Main (% Stenosis): Normal LAD (% Stenosis): Mid (Mild luminal irregularities, 10-20%.) D1 (% Stenosis): Normal (Small, 1 mm vessel) D2 (% Stenosis): Normal (Bifurcates proximally) Circumflex (% Stenosis): Mid (100%) OM1 (% Stenosis): Normal RCA (% Stenosis): Proximal (No significant disease visualized on subselective injection (aortic root injection) in the proximal and mid segment. Distal vessel was not well visualized.) Diagnostic Physicians Name: Jeff Sommers DO Status: Urgent Closure Device Recommendations: Management Recommendatons (Attempt cannulation of the right coronary artery with 3 DRC interventional guide. If no significant disease, recommend percutaneous intervention of the left circumflex.) Intraprocedure Events Significant Disection: No Perforation: No
--- NOTE | 2021-05-15 05:53 | Electrocardiogram Report ---
Test Reason : Blood Pressure : / mmHG Vent. Rate : 066 BPM Atrial Rate : 066 BPM P-R Int : 182 ms QRS Dur : 090 ms QT Int : 396 ms P-R-T Axes : 044 058 062 degrees QTc Int : 415 ms Sinus rhythm with occasional Premature ventricular complexes Possible inferolateral infarct Cannot rule out Anterior infarct (cited on or before 13-MAY-2021) Abnormal ECG When compared with ECG of 13-MAY-2021 14:10, Premature ventricular complexes are now Present ST less elevated in Inferolateral leads Confirmed by Romaine Tay ([id number]) on 05/15/2021 5:52:53 AM Referred By: REFERRED SELF Confirmed By:Romaine Tay
--- NOTE | 2021-05-15 05:58 | Electrocardiogram Report ---
Test Reason : Blood Pressure : / mmHG Vent. Rate : 063 BPM Atrial Rate : 063 BPM P-R Int : 184 ms QRS Dur : 100 ms QT Int : 428 ms P-R-T Axes : 061 061 072 degrees QTc Int : 437 ms Normal sinus rhythm Possible inferolateral infarct Cannot rule out Anterior infarct (cited on or before 13-MAY-2021) Nonspecific T wave abnormality Abnormal ECG When compared with ECG of 13-MAY-2021 21:28, Premature ventricular complexes are no longer Present Confirmed by Romaine Tay ([id number]) on 05/15/2021 5:58:06 AM Referred By: REFERRED SELF Confirmed By:Romaine Tay
[2021-05-15 06:43] LABS: Hematocrit (blood only) 38.1 % (42-52); Hemoglobin 12.4 g/dL (14.0-18.0); Mean Corpuscular Hemoglobin 32.2 pg (25-34); Mean Corpuscular Hgb Conc 32.5 g/dL (32-36); Mean Platelet Volume 10.8 fL (7.4-10.4); Platelet Count 130 K/uL (130-400); RDW Coefficient of Variation 13.2 % (11.5-14.5); RDW Standard Deviation 47.7 fL (36.4-46.3); Red Blood Count 3.85 M/uL (4.7-6.1)
[2021-05-15 07:19] LABS: BUN Creatinine Ratio 23.9 (10-20); Calcium 8.5 mg/dl (8.5-10.1); Creatinine Clr Calc Pharmacy 62.8 ml/min; Est GFR (African American) 76.7 ml/min; Est GFR (Non-African American) 66.1 ml/min; Potassium 4.4 mmol/L (3.5-5.1)
--- NOTE | 2021-05-15 07:41 | Discharge Summary ---
Date of Service May 15, 2021 Admission HPI Per Admitting Provider Patient is a 80-year-old male with history of CKD stage III, hypertension, moderate aortic stenosis, hearing impairment, macular degeneration of right eye and other medical problems presents with history of fatigue, diaphoresis, right shoulder pain which started this afternoon. Patient admits to moving his lawn for about 1 hour and felt extremely exhausted, associated with diaphoresis and right shoulder pain resulting in to lay on the floor which helped with the symptoms. He also states having nausea and chills but no vomiting. He denies any coronary artery disease in the past. Right shoulder pain is achy,7/10, nonradiating, no aggravating or relieving factors, not associated with tingling or numbness in her fingers. He was noted to have elevated troponins while in ED but denied any chest pain. Denies any history of Dyspnea, Fall, syncopal episode, loss of consciousness, trauma to right shoulder, palpitations, dizziness, cough, fever, chills, head trauma, headache, vomiting, abdominal pain, diarrhea, dysuria, hematuria, recent change in medications. Admission Exam Per Admitting Provider Physical Exam: Vitals signs as noted above General Appearance:Moderately built and nourished, no apparent distress Head: normocephalic, Atraumatic Eyes: normal inspection, EOMI Neck: supple, Trachea midline Respiratory/Chest: Decrease breath sounds, CTA, No accessory muscle use Cardiovascular: S1, S2, + murmur Abdomen/GI:Soft, Non tender, Bowel sounds present Extremities/Musculoskeletal:normal inspection, no edema, R shoulder tender Neurologic/Psych:AAOX3, grossly no focal neurological deficits Skin: normal color, warm Principal Diagnosis Rising Troponin/NSTEMI Right Shoulder Pain Hypertension Hyperlipidemia CKD stage III Discharge Exam See below Discharge Data Allergies Allergy/AdvReac Type Severity Reaction Status Date / Time No Known Allergies Allergy Unknown Unverified 05/13/21 14:54 [id number] Allergy Unknown . Uncoded 05/13/21 14:54 Consultations 05/13/21 15:22 ED Decision to Admit Stat 05/13/21 18:32 Consult Cardiology Routine 05/14/21 09:24 Consult Cardiac Catheterization Routine Procedures Performed Operation Date: 05/14/21 11:00 Actual Procedures p Cineradiography w/Routine Exam - Jeff Sommers DO p Cath, Left with Cors and Vent - Jeff Sommers, DO p POBA SGL Vessel - Shun Smallwood MD s Ultrasound Vascular Access - Shun Smallwood MD s Aortogram, Thoracic - Shun Smallwood MD s Placement Art Occlusive Device - Shun Smallwood MD Ordered Studies 05/14/21 10:47 CL Cath Imgs for PACS use only Routine Current Diagnoses Other specified abnormalities of plasma proteins (05/14/21) Allergies No Known Allergies Allergy (Unknown, Unverified 05/13/21 14:54) [id number] Allergy (Unknown, Uncoded 05/13/21 14:54) . Height/Weight/Isolation Height 5 ft 8 in Weight 92.4 kg Chemistry 05/13/21 05/14/21 05/15/21 13:44 04:48 06:25 Sodium 140 142 140 Potassium 4.8 4.5 4.4 Chloride 109 H 114 H 111 H Carbon Dioxide 25 27 25 Anion Gap 6.0 1.0 L 4.0 BUN 34 H 29 H 26 H Creatinine 1.16 1.09 1.07 Glucose 122 H 110 H 105 H Urinalysis 05/13/21 23:20 Urine Color Yellow Urine Appearance Clear Urine pH 7.0 Ur Specific [place] 1.016 Urine Protein Negative Urine Glucose (UA) Negative Urine Ketones Trace H Urine Blood Negative Urine Nitrite Negative Urine Bilirubin Negative Hospital Course (1) Elevated troponin: Rising Troponin/NSTEMI Risk factors: H/O HTN, HLP, Former Tobacco use disorder, Obesity Initial troponin:0.1 EKG shows: Normal sinus rhythm, poor R wave progression, early repolarization. QTc 440 CXR: Last ECHO: EF: 60 to 64%, grade 1 diastolic dysfunction, mild aortic regurgitation, moderate aortic stenosis. Trend serial cardiac enzymes, repeat EKG, fasting lipid panel in AM Continue Aspirin, statins Oxygen PRN NPO Cardiology on case, S/P Cath-[place] [facility] [place] [place] [facility] backup Echo done IV heparin Right Shoulder Pain Likely musculoskeletal origin Hypertension Continue lisinopril, amlodipine Hyperlipidemia Continue statin CKD stage III Baseline creatinine 1.2-1.3 Cr at baseline Monitor renal function DVT Px: IV Heparin CODE STATUS Full code Disposition [facility]. Labs checked ROS-No Headache, No Visual Changes, No Nausea, No Vomiting, No Fever, No Chills, No Neck Pain or Stiffness, No Chest Pain, No Palpitations, No SOB, No ARIZMENDI, No Cough, No Sputum, No Wheezing, No Abdominal Pain, No Diarrhea, No Hematemesis, No Hemoptysis, No Unexpected Weight Loss, No Flank pain, No Melena, No H ematochezia, No Frequency, No Urgency, No Burning, No Hematuria, No Rashes, No Diaphoresis. Appetite is Normal Physical Exam Gen-AAO x 3, NAD, Afebrile Head-NCAT, EOMI, PERRLA, Anicteric Sclera, No Posterior Pharyngeal Erythema Neck-Supple, No JVD, No Thyromegaly, No Masses, No LAD, No Bruits Lungs-Clear to Auscultation Bilaterally, No Rales, No Rhonchi, No Wheezing, No Crepitus Chest-No S4, +S1, +S2, No S3, No Murmurs, No Rubs, No Gallops, No Ectopy Abdomen-Soft, Bowel Sounds Present, Non Tender, Non Distended, No Hepatomegaly, No Splenomegaly, No Palpable Masses, No Rebound, No Rigidity, No Guarding Musculoskeletal-Full Range of Motion Bilaterally, No CVAT Extremities-No Cyanosis, No Clubbing, No Edema Nuero-Cranial Nerves II-XII grossly intact, Motor WNL, DTRs WNL, Strength WNL, Non Focal Psych-Normal Mood Total Time Total Time Spent Total Time Spent (In Minutes): 45 mins Total Time Includes: Examination of the Patient, Discharge Planning, Medication Reconciliation and Communication With Other Providers Discharge Plan Discharge Items Patient Disposition: Transfer Acute Care Hospital Reason For Visit: ELEVATED TROPONIN Discharge Diagnosis: Rising Troponin/NSTEMI Right Shoulder Pain Hypertension Hyperlipidemia CKD stage III Condition on Discharge: Good Health Concerns: Evolving AMI Activity: Per Instructions section Activity Comment: Bedrest, Up to B/R OK, OOB to Chair OK Lifting: None Bathing: No limitations Sexual Activity: Wait until after follow-up appointment Exercise/Sports: None and Rest today Driving/Machine Use: None Weightbearing: Full weightbearing Non-emergency contact: Primary Care Provider and [employer] Call non-emergency contact if: you have any medication questions Follow-up/Referrals: Sai Mason MD [Primary Care Provider] - Diet: Heart Healthy Addtl Attending Provider Instructions: [place] [facility] Pending Studies at Discharge: No Stand-Alone Forms: My [facility] Skilled Items Patient informed of condition?: Yes DNR: No Discharge Level of Care: Other Communicable Disease: No Discharge Prognosis: Stable Lines: Peripheral IV Urinary Catheter: No Medications and DC Order Prescriptions: New atorvastatin 40 mg Tablet 80 mg PO QAM Qty: 30 RF: 0 metoprolol tartrate 25 mg Tablet 12.5 mg PO BID Qty: 30 RF: 0 aspirin 81 mg Tablet,Delayed Release (Dr/Ec) 81 mg PO DAILY Qty: 90 RF: 0 nitroglycerin [Nitrostat] 0.4 mg Tablet, Sublingual 0.4 mg sublingual UD PRN (Reason: chest pain) Qty: 30 RF: 0 Continued amlodipine 5 mg tablet 5 mg PO DAILY RF: 0 hydrocortisone 2.5 % cream with perineal applicator 1 applic NH HS RF: 0 lisinopril 40 mg tablet 40 mg PO DAILY RF: 0 Discontinued simvastatin 20 mg tablet 20 mg PO DAILY RF: 0 aspirin 81 mg PO DAILY RF: 0 Discharge Orders: Discharge Order (Routine); Ordered 05/15/21 Ordered By: Isaias Amos/Other Patient Handouts: Exercise for a Healthier Heart, 5 Steps for Eating Healthier, A1C Admission Data Admit Date/Time: 05/14/21 09:21 Attending Provider: Isaias Burgess Admit Provider: Valdemar Phillips Primary Care Provider: Sai Mason Other Providers: Valdemar Phillips ; Jeff Sommers
[2021-05-15] MEDS: ASPIRIN 81 MG ECTAB PO SCH (08:09)
[2021-05-15] MEDS: lisinopril 40 MG TAB PO SCH (08:10)
[2021-05-15] MEDS: ATORVASTATIN 40 MG TAB PO SCH (08:10)
[2021-05-15] MEDS: METOPROLOL TARTRATE 25 MG TAB PO SCH (08:11)
[2021-05-15] MEDS: amLODIPine BESYLATE 5 MG TAB PO SCH (08:11)
--- NOTE | 2021-05-15 08:48 | Cardiac Catheterization ---
[facility] Data: Flat Folder Cardiac Status Clinical evaluation leading to the procedure CAD Presenation: Non STEMI Anginal Classification: CCS III Heart Failure: No Cardiogenic Shock within 24 Hours: No Cardiac Arrest within 24 Hours: No Imaging Studies Past 6 Months: Yes Stress Studies Past 6 Months: No Diagnostic Physicians Name: Twin Smallwood MD Closure Device Percutaneous Entry Location: Radial Closure Device: Radial Band Recommendations: Management Recommendatons (Attempt cannulation of the right coronary artery with 3 DRC interventional guide. If no significant disease, recommend percutaneous intervention of the left circumflex.) Lesion Segment Name: Mid circumflex Culprit Artery: Yes Stenosis Prior to Rx (%): 100 Chronic Total Occlusion: No IVUS: No FFR: No Pre-Procedure LUPE Flow: 1 Previously Treated Lesion: No Lesion Complexity: High/C Lesion Length (mm): 20 Thrombus Present: No Bifurcation Lesion: No Guidewire Across Lesion: No Intraprocedure Events Significant Disection: No Perforation: No Cardiac Cath Procedure Full Procedure Date May 15, 2021 Pre-Procedure Diagnosis Pre-Procedure Diagnosis: Non STEMI and Valvular Disease AUC Score AUC Score: 8 Post-Procedure Diagnosis Post-Procedure Diagnosis: Severe CAD Procedure(s) Performed Procedure(s) Performed: Coronary Angiography, Left Heart Cath and Ultrasound Guided Vascular Access Market Research Consultant Twin Smallwood MD It Program Auditor(s) Nate PULLIAM Estimated Blood Loss Estimated Blood Loss: 15cc Medication(s) Medication(s): Fentanyl, Heparin, Lidocaine 1%, Nicardipine, Nitroglycerin and Versed Summary of Findings Indication: NSTEMI, aortic stenosis Findings: For full details of patient's coronary angiography please see cath report dictated by Dr. Sommers. Briefly, patient found to have a subtotally occluded mid circumflex. RCA not well visualized. Attempt made to better cannulate RCA and possibly intervene on circumflex subtotal occlusion. Procedure: Multiple attempts made to engage RCA with JR 4.5, AR-1, AL-1 guides from radial access but unsuccessful. Right DIRECTOR OF FOOD AND NUTRITION access obtained ultrasound guidance with placement of 5 Fr sheath. Again multiple attempts made to engage RCA from femoral approach with 3 DRC, AR- 1, AL-1 but unsuccessful. RCA thought to be small artery was some ostial disease, but LUPE-3 flow from nonselective images. Attempt made to intervene on mid circumflex occlusion Left main cannulated with EBU 3.5 guide Program Instructor 50 wire navigated into mid circumflex but unable to cross occlusionocclusion behaved more like chronic lesion No additional success with attempt to cross with whisper wire, additional support using 2.0 balloon. Post procedure no apparent coronary complications. Does appear to have bridging left to left collaterals across mid circumflex occlusion into distal vessel. Summary: 1. Unsuccessful attempt to selectively engage RCA. Small RCA with LUPE-3 flow. 2. Unsuccessful attempted PCI of mid circumflex acute on chronic occlusion. Unable to cross occlusion with wire antegrade. Recommendations: Continue medical management of CAD and valvular heart disease per Dr. Sommers. Hemodynamics Rest Ao:: 128/65/88 Final Ao: 137/72/21 LV: 163/32 Recommendations Recommendations: Management Recommendatons (Attempt cannulation of the right coronary artery with 3 [facility] interventional guide. If no significant disease, recommend percutaneous intervention of the left circumflex.) Specimens Specimens: None Radiation Exposure (mGy) 4320 Contrast (mls) 200 Fluids (cc crystalloids) Fluids (cc crystalloids): 215 Drains Drains: N/a Anesthesia Moderate sedation. Start 1219. End 1336. Procedural Complication(s) None Disposition PCU I attest to the content of the Intraoperative Record and any orders documented therein. Any exceptions are noted below. [facility] Card Cath Procedure Codes Cardiac Catheterization Procedure 1: Cardiovascular Cath Procedures: 37761 Left Heart Cath (+/-LV) Therapeutic Services & Ancillary Proc Procedure 1: Cardiovascular Tx and Anc Procedures: 71464 Ultrasonic Guidance Vascular Access Moderate Sedation Procedure 1: Sedation/Anesthesia: 93286 Mod Sedation by the same physician; Ea [id number] Minutes PG Care Time/CCT Total # of Minutes Spent Total Time Spent with Patient: Total time spent is greater than 50% in coordination of care (as documented) at patient's floor/unit and/or counseling patient:
--- NOTE | 2021-05-15 09:38 | Electrocardiogram Report ---
Test Reason : Blood Pressure : / mmHG Vent. Rate : 063 BPM Atrial Rate : 063 BPM P-R Int : 184 ms QRS Dur : 092 ms QT Int : 440 ms P-R-T Axes : 046 059 086 degrees QTc Int : 450 ms Normal sinus rhythm Possible Inferior infarct (cited on or before 13-MAY-2021) T wave abnormality, consider lateral ischemia Abnormal ECG When compared with ECG of 14-MAY-2021 05:29, No significant change was found Confirmed by Damian Murillo ([id number]) on 05/15/2021 9:38:25 AM Referred By: REFERRED SELF Confirmed By:Damian Murillo
[2021-05-15] MEDS: HEPARIN SODIUM/DEXTROSE 25,000 UNITS/500 ML BAG IV SCH ×2 (09:47→10:12)
--- NOTE | 2021-05-15 11:37 | Cardiology Progress Note ---
Date of Service May 15, 2021 Assessment & Plan (1) Non-ST elevation (NSTEMI) myocardial infarction: Cardiac catheterization performed 05/14/2021 demonstrating left circumflex occlusion. Findings correspond with transthoracic echocardiogram wall motion abnormality. Mild LV systolic dysfunction noted. No signs/symptoms of decompensated failure today. Restart intravenous heparin infusion. Continue aspirin, statin, YANI inhibitor, and beta-radha therapy. Patient will be transferred to [facility] for cardiothoracic surgery evaluation regarding aortic valve stenosis, NSTEMI, and left circumflex occlusion. (2) Moderate aortic stenosis: Aortic valve systolic gradients have progressed when compared to most recent echocardiogram available in the [facility] medical record. (3) HTN (hypertension) with goal to be determined: Fair control. Continue beta-radha and YANI inhibitor. (4) CKD (chronic kidney disease), stage III: Creatinine stable post cardiac catheterization. Daily BMP ordered. Admission and Anticipated Discharge Date Admission Date: May 14, 2021 Subjective Patient seen and examined at the bedside. Feeling well this morning. No recurrent chest discomfort overnight. No wrist or right groin hematoma. Denies orthopnea, PND, or lower extremity edema. Telemetry reveals sinus rhythm. No dysrhythmias overnight. Awaiting transfer to [facility] regarding left circumflex occlusion and moderate to severe aortic stenosis. Review of Systems Review of Systems: All systems reviewed & are unremarkable except as noted in Subjective Physical Exam Constitutional: well developed and well nourished; no acute distress ENMT: Mallampati Class: III Respiratory: normal respiratory effort, lungs clear to auscultation normal respiratory effort; no respiratory distress, no labored breathing and no retractions Auscultation: lungs clear to auscultation bilaterally; no crackles, no rales, no rhonchi and no wheezes Cardiovascular: Rate/Rhythm: regular rate and regular rhythm Heart Sounds: normal S1, normal S2 and + murmur Vessels: femoral pulses present (No right groin hematoma) and radial pulses present (No hematoma, mild ecchymosis); no JVD Extremities: no edema Gastrointestinal (Abdomen): Inspection/Auscultation: abdomen normal to inspection and normal bowel sounds; abdomen not distended Percussion/Palpation: abdomen soft; abdomen nontender, no guarding and abdomen not rigid Neurologic: CN's II-XI intact bilaterally and moves all extremities; no focal motor deficits Motor/Sensory: no tremor Psychiatric: A+Ox3, euthymic affect Results & Data ([facility]) Vital Signs (Past 12 Hours) Vital Signs Temp Pulse Pulse Resp BP BP Pulse Ox 05/15/21 07:58 36.7 C 71 18 127/72 96 05/15/21 07:51 37.0 C 75 18 117/71 143/83 H 95 05/15/21 07:24 89 05/15/21 04:02 37.0 C 75 18 117/71 95 05/15/21 00:20 67
--- NOTE | 2021-05-15 13:22 | Electrocardiogram Report ---
Test Reason : Blood Pressure : / mmHG Vent. Rate : 069 BPM Atrial Rate : 069 BPM P-R Int : 178 ms QRS Dur : 094 ms QT Int : 432 ms P-R-T Axes : 030 055 073 degrees QTc Int : 462 ms Normal sinus rhythm Possible Inferior infarct (cited on or before 13-MAY-2021) T wave abnormality, consider lateral ischemia Abnormal ECG When compared with ECG of 14-MAY-2021 17:09, (unconfirmed) Inverted T waves have replaced nonspecific T wave abnormality in Anterior leads Confirmed by Damian Murillo ([id number]) on 05/15/2021 1:22:13 PM Referred By: REFERRED SELF Confirmed By:Damian Murillo
[2021-05-15 16:47] LABS: Partial Thromboplastin Ratio 2.5
[2021-05-15 16:51] LABS: Partial Thromboplastin Time 66.3 Seconds (21.0-31.0)
== END 2021-05-15 19:20 | disposition short-term general hospital (02) | DRG 282 ==
LOC: 2S 12:12 → ED 12:12 → SUATTDRO 16:23 → 2S 17:54
PROC: CLB.ATH (2021-05-14 11:00)

== ENCOUNTER 2021-10-10 10:34 | Inpatient (IN) ==
[2021-10-10 11:26] LABS: Basophils # (auto) 0.03 K/uL (0-0.2); Basophils % (auto) 0.4 %; Eosinophils # (auto) 0.02 K/uL (0-0.5); Eosinophils % (auto) 0.3 %; Hematocrit (blood only) 41.1 % (42-52); Hemoglobin 13.8 g/dL (14.0-18.0); Immature Granulocytes # (auto) 0.01 K/uL (0.00-0.02); Immature Granulocytes % (auto) 0.1 %; Lymphocytes # (auto) 0.78 K/uL (1.2-3.4); Lymphocytes % (auto) 11.1 %; Mean Corpuscular Hemoglobin 31.9 pg (25-34); Mean Corpuscular Hgb Conc 33.6 g/dL (32-36); Mean Corpuscular Volume 94.9 fL (80-100); Monocytes # (auto) 0.45 K/uL (0.11-0.59); Monocytes % (auto) 6.4 %; Neutrophils # (auto) 5.71 K/uL (1.4-6.5); Neutrophils % (auto) 81.7 %; Platelet Count 180 K/uL (130-400); RDW Coefficient of Variation 13.5 % (11.5-14.5); Red Blood Count 4.33 M/uL (4.7-6.1)
--- NOTE | 2021-10-10 11:34 | XRay Report ---
XR chest 1V portable CLINICAL HISTORY: SOB TECHNIQUE: Single frontal radiograph of the chest was obtained. Comparison: Comparison is made to chest one view 05/14/2021 FINDINGS: No lines and tubes are seen. The cardiomediastinal silhouette is normal. The lungs are clear. No evid ence of pleural effusion or pneumothorax. IMPRESSION: No acute chest disease. ACT 112: Negative or not required by law. Electronically signed by: Shawn Camejo M.D. 10/10/2021 11:33 AM
[2021-10-10 11:41] LABS: INR 1.1 (0.9-1.1); Partial Thromboplastin Time 26.8 Seconds (21.0-31.0); Prothrombin Time 10.9 Seconds (9.0-12.0)
[2021-10-10 11:43] LABS: Alanine Aminotransferase 30 U/L (12-78); Albumin Level 3.3 gm/dl (3.4-5.0); Aspartate Aminotransferase 22 U/L (15-37); BUN Creatinine Ratio 19.9 (10-20); Blood Urea Nitrogen 22 mg/dl (7-18); Calcium 8.7 mg/dl (8.5-10.1); Carbon Dioxide 27 mmol/L (21-32); Chloride 108 mmol/L (98-107); Creatinine Clr Calc Pharmacy 62.1 ml/min; Est GFR (African American) 75.8 ml/min; Est GFR (Non-African American) 65.4 ml/min; Glucose 131 mg/dl (70-99); Magnesium 2.2 mg/dl (1.8-2.4); Potassium 3.9 mmol/L (3.5-5.1); Sodium 141 mmol/L (136-145)
[2021-10-10 11:47] LABS: Albumin Globulin Ratio 0.8 (0.9-2); Alkaline Phosphatase 127 U/L (45-117); Bilirubin,Total 0.8 mg/dl (0.2-1); Globulin 4.2 gm/dl (2.5-4.0); Total Protein 7.5 gm/dl (6.4-8.2); Troponin I < 0.015 ng/ml (0-0.045)
[2021-10-10] MEDS ORDERED: ALBUT/IPRATROP 3MG/0.5MG NEB 3 ML VIAL NEB STA (12:17)
[2021-10-10 12:20] LABS: Influenza A virus by PCR Negative (Negative); Influenza B virus by PCR Negative (Negative)
[2021-10-10 12:39] LABS: D Dimer 450 ug/L FEU (0-500)
[2021-10-10 12:49] LABS: Base Excess VBG 3.6 mEq/L; pH VBG 7.39 (7.36-7.41)
[2021-10-10] MEDS ORDERED: FUROSEMIDE 40 MG/4 ML VIAL IV ONE (13:02)
[2021-10-10] MEDS ORDERED: ACETAMINOPHEN HOME PACK 500 MG TABLET PO PRN (14:59)
--- NOTE | 2021-10-10 15:03 | History & Physical Report ---
Date of Service October 10, 2021 Assessment & Plan (1) Acute respiratory failure with hypoxia: (2) Acute bronchitis: Plan: 80 year old male with history of CAD, Ischemic Cardiomyopathy EF 45%, Moderate Aortic Stenosis, HTN, CKD 3, presenting with chest congestion, cough x 1 week. ACUTE BRONCHITIS HYPOXIA 1 week history of nasal congestion/discharge, cough no history of smoking, asthma COVID test negative does not meet criteria for sepsis plan: Doxycycline 100mg BID Prednisone 40mg po daily x 3 days Levalbuterol neb QID Mucinex Incentive spirometry wean off oxygen CAD ISCHEMIC CARDIOMYOPATHY EF 45% no chest pain BNP 2k appears euvolemic on my exam , except for trace lower extremity edema- chronic as per patient did get Lasix 40mg IV at the ER echo ordered: pending monitor volume status continue Metoprolol, ASA, Plavix, Lipitor MODERATE AORTIC STENOSIS asymptomatic has ff up scheduled at [facility] HTN stable continue Amlodipine 5mg po daily CKD 3 stable DVT prophylaxis Lovenox daily Disposition may need 2 step exercise test prior to discharge anticipate d/c home when medically jose ramon History of Present Illness Chief Complaint: cough, nasal and chest congestion Primary Care Provider: Sai Mason MD 80 year old male with history of CAD, Ischemic Cardiomyopathy EF 45%, Moderate Aortic Stenosis, HTN, CKD 3, presenting with chest congestion, cough x 1 week. Patient seen with his at bedside. Patient was at his baseline state of health until 1 week ago when he started to have nasal congestion, runny nose with clear discharge and cough. No fever/chills, nausea/vomiting, headache, arthralgias/myalgias, diarrhea. Appetite has been good. He has been prescribed with Coricidin and Robitussin by his PCP with no relief of symptoms. At the ER, patient was received with O2 of 87%. Covid test negative, D dimer normal. CXR no signs of infiltrates, edema. He was given Lasix 40mg IV and Levalbuterol neb at the ER. On exam, patient seen sitting up in bed, comfortable, not in distress, on 2 L NC. He is alert, pleasant. States he feels improved after neb treatment but not yet at basline. No other symptoms. Allergies Allergy/AdvReac Type Severity Reaction Status Date / Time No Known Allergies Allergy Unknown Unverified 10/10/21 13:31 Home Medications Medication Instructions Recorded Confirmed Type amlodipine 5 mg tablet 5 mg PO QAM 05/13/21 10/10/21 History lisinopril 40 mg tablet 40 mg PO QAM 05/13/21 10/10/21 History metoprolol tartrate 25 mg tablet 12.5 mg PO BID #30 tab 05/15/21 10/10/21 Rx nitroglycerin 0.4 mg sublingual 0.4 mg SUBLINGUAL UD PRN #30 tab 05/15/21 10/10/21 Rx tablet (Nitrostat) acetaminophen 500 mg tablet 1,000 mg PO Q6H PRN 10/10/21 10/10/21 History (Tylenol Extra Strength) aspirin 81 mg tablet,delayed 81 mg PO QAM 10/10/21 10/10/21 History release atorvastatin 40 mg tablet 80 mg PO PM 10/10/21 10/10/21 History chlorpheniramine-dextromethorphan 2 tab PO Q6H PRN 10/10/21 10/10/21 History 4 mg-30 mg tablet (Coricidin HBP Cough and Cold) guaifenesin 100 mg/5 mL oral liquid 200 mg PO Q4H PRN 10/10/21 10/10/21 History Past Med/Surg History Medical History CKD (chronic kidney disease), stage III Dyslipidemia HTN (hypertension) with goal to be determined Moderate aortic stenosis Surgical History H/O lithotripsy Social History Smoking Status: Former smoker Hx Alcohol Use: No Hx Substance Use: No Preferred Language: Thai Communication Ability: Effective Business Operations Coordinator Required: No Beliefs That Will Affect Care: None Current Living Situation: Spouse Other Information That Helps Us Care for You: No Feels Safe at Home: Yes Safety Concerns: Feels Safe At This Time Assistive Devices: Denture - Upper and Oxygen - Continuous Review of Systems Review of Systems: all noted and negative except for above Physical Exam Physical Exam: General- oriented x 3, not in distress, speaks in sentences with no effort or accessory muscle use Head- atraumatic Eyes- PERRL, EOMI, anicteric ENT- oropharynx clear Neck- supple, no JVD, no adenopathy, no thyromegaly; carotids +2/2, no bruits appreciated Lungs- (+) rhonchi bilaterally no wheezing good air entry bilaterally Heart- normal rate, regular rhythm; (+) grade 3/6 murmur, no gallop, no rub appreciated Abdomen- normal bowel sounds, nondistended, soft, nontender, no masses or hepatosplenomegaly Extremities- trace pretibial edema, no calf tenderness; peripheral pulses intact Neuro- alert, oriented x 3; CN 2-12 grossly intact; motor 5/5 bilaterally;sensation 100% on all extremities; no other gross focal neurologic deficits Skin- warm & dry Results & Data Results & Data ([facility]) Vital Signs (Past 12 Hours) Vital Signs Temp Pulse Pulse Resp BP BP Pulse Ox 10/10/21 13:57 79 16 137/69 92 10/10/21 12:31 81 20 95 10/10/21 12:18 70 22 132/68 90 10/10/21 11:32 87 L 10/10/21 11:14 20 91 10/10/21 11:11 72 20 143/72 H 91 10/10/21 11:10 91 10/10/21 10:37 36.0 C L 83 20 142/79 H 92 all noted and reviewed including below Code Status & VTE Plan VTE Prophylaxis Plan VTE Prophylaxis will be ordered: Yes
[2021-10-10] MEDS ORDERED: ACETAMINOPHEN 325 MG TAB PO PRN (15:15)
[2021-10-10] MEDS ORDERED: ONDANSETRON INJ 2 MG/ML 2 ML VIAL IV PRN (15:15)
[2021-10-10] MEDS ORDERED: LEVALBUTEROL HCL 1.25 MG/3 ML NEB INH PRN (16:49)
[2021-10-10] MEDS: predniSONE 20 MG TAB PO SCH (18:00)
[2021-10-10] MEDS: DOXYCYCLINE HYCLATE 100 MG CAP PO SCH ×2 (18:01→20:24)
[2021-10-10] MEDS: guaiFENesin 600 MG TABCR PO SCH (18:01)
--- NOTE | 2021-10-10 18:12 | Emergency Department Note ---
History of Present Illness General Chief Complaint: Shortness of Breath/Dyspnea Stated Complaint: COUGH/COLD/HEART CONDITION/SOB Time Seen by Provider: 10/10/21 11:36 History of Present Illness Provider Complaint: shortness of breath and cough Onset (ago): week(s) (1) Severity: moderate Consistency/Duration: + progressively worsening Current Pain Intensity: 0 Relieved By: + nothing Exacerbated By: + coughing Context: + recent illness Associated symptoms: + cough and + sputum production; no chest pain, no fever, no orthopnea, no polyuria, no palpitations, no hemoptysis, no diaphoresis, no abdominal pain or no chest congestion Home Medications Medication Instructions Recorded Confirmed Type amlodipine 5 mg tablet 5 mg PO QAM 05/13/21 10/10/21 History lisinopril 40 mg tablet 40 mg PO QAM 05/13/21 10/10/21 History metoprolol tartrate 25 mg tablet 12.5 mg PO BID #30 tab 05/15/21 10/10/21 Rx nitroglycerin 0.4 mg sublingual 0.4 mg SUBLINGUAL UD PRN #30 tab 05/15/21 10/10/21 Rx tablet (Nitrostat) acetaminophen 500 mg tablet 1,000 mg PO Q6H PRN 10/10/21 10/10/21 History (Tylenol Extra Strength) aspirin 81 mg tablet,delayed 81 mg PO QAM 10/10/21 10/10/21 History release atorvastatin 40 mg tablet 80 mg PO PM 10/10/21 10/10/21 History chlorpheniramine-dextromethorphan 2 tab PO Q6H PRN 10/10/21 10/10/21 History 4 mg-30 mg tablet (Coricidin HBP Cough and Cold) guaifenesin 100 mg/5 mL oral liquid 200 mg PO Q4H PRN 10/10/21 10/10/21 History Allergies Allergy/AdvReac Type Severity Reaction Status Date / Time No Known Allergies Allergy Unknown Unverified 10/10/21 13:31 Past Med/Surg History Medical History CKD (chronic kidney disease), stage III Dyslipidemia HTN (hypertension) with goal to be determined Moderate aortic stenosis Surgical History H/O lithotripsy Social History Smoking Status: Former smoker Hx Alcohol Use: No Hx Substance Use: No Preferred Language: Bolivian Communication Ability: Effective Material Requirements Worker Required: No Beliefs That Will Affect Care: None Current Living Situation: Spouse Other Information That Helps Us Care for You: No Feels Safe at Home: Yes Safety Concerns: Feels Safe At This Time Assistive Devices: Denture - Upper and Oxygen - Continuous Review of Systems A total of 10 systems reviewed and were otherwise negative Physical Exam Vital Signs: Vital Signs - 24 hr 10/10/21 10:37 10/10/21 11:10 10/10/21 11:11 Temperature 36.0 C L Temperature Source Temporal Artery Sc an Pulse Rate 83 Pulse Rate [Left] 72 Pulse Rhythm [Left ] Regular Pulse Strength [Le ft] Normal Respiratory Rate 20 20 Respiratory Effort / Characteristics Non-Labored Sponta neous Non-Labored Respiratory Depth Normal Normal Respiratory Patter n Regular Blood Pressure 142/79 H Blood Pressure [Le ft Arm] 143/72 H Blood Pressure Milena n 100 Blood Pressure Milena n [Left Arm] 95 Blood Pressure Pos ition [Left Arm] Sitting Pulse Oximetry 92 91 91 Oxygen Delivery Me thod Room Air Room Air Room Air Oxygen Flow Rate Sepsis Recent Feve r Within 48 Hours No Sepsis New/Unexpla ined Change in Men cuong Status No Sepsis Action Take n by Nursing No Action Required Oxygen Flow Rate - Titration Pulse Oximetry Pos t Tiitration 10/10/21 11:14 10/10/21 11:32 10/10/21 12:18 Temperature Temperature Source Pulse Rate Pulse Rate [Left] 70 Pulse Rhythm [Left ] Regular Pulse Strength [Le ft] Normal Respiratory Rate 20 22 Respiratory Effort / Characteristics Non-Labored Non-Labored Respiratory Depth Normal Respiratory Patter n Blood Pressure Blood Pressure [Le ft Arm] 132/68 Blood Pressure Milena n Blood Pressure Milena n [Left Arm] 89 Blood Pressure Pos ition [Left Arm] Sitting Pulse Oximetry 91 87 L 90 Oxygen Delivery Me thod Room Air Room Air Nasal Cannula Oxygen Flow Rate 2 Sepsis Recent Feve r Within 48 Hours Sepsis New/Unexpla ined Change in Men cuong Status Sepsis Action Take n by Nursing Oxygen Flow Rate - Titration 2 Pulse Oximetry Pos t Tiitration 90 10/10/21 12:31 Temperature Temperature Source Pulse Rate Pulse Rate [Left] 81 Pulse Rhythm [Left ] Pulse Strength [Le ft] Respiratory Rate 20 Respiratory Effort / Characteristics Spontaneous Respiratory Depth Respiratory Patter n Blood Pressure Blood Pressure [Le ft Arm] Blood Pressure Milena n Blood Pressure Milena n [Left Arm] Blood Pressure Pos ition [Left Arm] Pulse Oximetry 95 Oxygen Delivery Me thod Nasal Cannula Oxygen Flow Rate 2 Sepsis Recent Feve r Within 48 Hours Sepsis New/Unexpla ined Change in Men cuong Status Sepsis Action Take n by Nursing Oxygen Flow Rate - Titration Pulse Oximetry Pos t Tiitration Physical Exam: Physical Exam GENERAL: He is oriented to person, place, and time. He appears well-developed and well-nourished. He does not appear distressed. HENT: Exam performed. - Head: Normocephalic and atraumatic. - Right Ear: External ear normal. No mastoid tenderness. - Left Ear: External ear normal. No mastoid tenderness. - Mouth/Throat: The oropharynx is clear and moist. No trismus in the jaw. No dental abscesses or uvula swelling. No oropharyngeal exudate or tonsillar abscesses. EYES: Conjunctivae and EOM are normal. Pupils are equal, round, and reactive to light. Right eye exhibits no discharge. Left eye exhibits no discharge. No scleral icterus. NECK: Normal range of motion. Neck supple. No JVD present. No spinous process tenderness present. No carotid bruit present. No rigidity. No tracheal deviation and normal range of motion present. No Brudzinski's sign and no Kernig's sign n oted. CV: Normal rate, regular rhythm, normal heart sounds and intact distal pulses. There is no peripheral edema. Palpable radial pulses bue. PULM/CHEST: Expiratory wheezes bilaterally. ABD: The abdomen is soft. Bowel sounds are normal. He has no distension. No mass is present. There is no tenderness. There is no rebound, no guarding, no Dubon's sign and no tenderness at McBurney's point. Rovsig negative. MUSC/SKEL: Normal range of motion. There is no peripheral edema, tenderness or deformity. LYMPH: No cervical adenopathy. NEURO: He is alert and oriented to person, place, and time. He has normal strength. No cranial nerve deficit or sensory deficit. Coordination and gait normal. GCS eye subscore is 4. GCS verbal subscore is 5. GCS motor subscore is 6. Cerebellar tests wnl. SKIN: Skin is warm and dry. He is not diaphoretic. PSYCH: He has a normal mood and affect. Behavior is normal. Judgment and thought content normal. Course Course 1136: The patient was evaluated in room C5. A complete history and physical exam was performed Cardiac monitoring: An order was placed for continuous cardiac monitoring. The monitor shows a rate of 80 with sinusrhythm Patient was found to be hypoxic on room air. Supplemental oxygen improve the patient's oxygen saturation. 1300: Vital signs stable. Follow-up labs within normal limits with exception of elevated proBNP of 1989. Troponin and D-dimer negative. Chest x-ray negative. Patient be treated with Lasix 40 mg IV push. Patient states he feels better after 1 DuoNeb. Patient will be admitted to the [facility] hospitalist team Dr. Montero. Administered Medications Doxycycline Hyclate (Doxycycline Hyclate 100 Mg Cap) 100 mg PO BID OPAL Stop: 10/17/21 15:34 Last Admin: 10/10/21 18:01 Dose: 100 mg Documented by: [id number] Guaifenesin (Guaifenesin 600 Mg Tabcr) 600 mg PO Q12 OPAL Stop: 11/09/21 15:59 Last Admin: 10/10/21 18:01 Dose: 600 mg Documented by: [id number] Prednisone (Prednisone 20 Mg Tab) 40 mg PO DAILY OPAL Stop: 11/09/21 15:59 Last Admin: 10/10/21 18:00 Dose: 40 mg Documented by: [id number] Discontinued Medications Albuterol (Albut/Ipratrop 3mg/0.5mg Neb 3 Ml Vial) 3 ml NEB NOW STA Stop: 10/10/21 12:18 Last Admin: 10/10/21 12:30 Dose: 3 ml Documented by: [id number] Furosemide (Furosemide 40 Mg/4 Ml Vial) 40 mg IV ONE ONE Stop: 10/10/21 13:03 Last Admin: 10/10/21 13:19 Dose: 40 mg Documented by: [id number] Medical Decision Making Laboratory Data Result diagrams: 10/10/21 11:05 10/10/21 11:05 Lab Results 10/10/21 10/10/21 10/10/21 Range/Units 11:05 11:05 11:05 WBC 7.00 (4.8-10.8) K/uL RBC 4.33 L (4.7-6.1) M/uL Hgb 13.8 L (14.0-18.0) g/dL Hct 41.1 L (42-52) % MCV 94.9 (80-100) fL MCH 31.9 (25-34) pg MCHC 33.6 (32-36) g/dL RDW Std Deviation 47.0 H (36.4-46.3) fL RDW Coeff of Kaiden 13.5 (11.5-14.5) % Plt Count 180 (130-400) K/uL MPV 10.0 (7.4-10.4) fL Immature Gran % (Auto) 0.1 % Neut % (Auto) 81.7 % Lymph % (Auto) 11.1 % [place] % (Auto) 6.4 % Eos % (Auto) 0.3 % Baso % (Auto) 0.4 % Neut # (Auto) 5.71 (1.4-6.5) K/uL Lymph # (Auto) 0.78 L (1.2-3.4) K/uL [place] # (Auto) 0.45 (0.11-0.59) K/uL Eos # (Auto) 0.02 (0-0.5) K/uL Baso # (Auto) 0.03 (0-0.2) K/uL Immature Gran # (Auto) 0.01 (0.00-0.02) K/uL PT 10.9 (9.0-12.0) Seconds INR 1.1 (0.9-1.1) APTT 26.8 (21.0-31.0) Seconds PTT Ratio 1.0 D-Dimer (0-500) ug/L FEU VBG pH (7.36-7.41) VBG pCO2 (38-50) mmHg VBG pO2 mmHg VBG HCO3 mmol/L VBG O2 Saturation % VBG Base Excess mEq/L Barometric Pressure mm/Hg Sodium 141 (136-145) mmol/L Potassium 3.9 (3.5-5.1) mmol/L Chloride 108 H (98-107) mmol/L Carbon Dioxide 27 (21-32) mmol/L Anion Gap 6.0 (3-11) BUN 22 H (7-18) mg/dl Creatinine 1.08 (0.6-1.4) mg/dl Est Cr Clr Drug Dosing 62.1 ml/min Est GFR ( Amer) 75.8 ml/min Est GFR (Non-Af Amer) 65.4 ml/min BUN/Creatinine Ratio 19.9 (10-20) Glucose 131 H (70-99) mg/dl Calcium 8.7 (8.5-10.1) mg/dl Magnesium 2.2 (1.8-2.4) mg/dl Total Bilirubin 0.8 (0.2-1) mg/dl AST 22 (15-37) U/L ALT 30 (12-78) U/L Alkaline Phosphatase 127 H (45-117) U/L Troponin I < 0.015 (0-0.045) ng/ml NT-Pro-B Natriuret Pep (0-1800) pg/ml Total Protein 7.5 (6.4-8.2) gm/dl Albumin 3.3 L (3.4-5.0) gm/dl Globulin 4.2 H (2.5-4.0) gm/dl Albumin/Globulin Ratio 0.8 L (0.9-2) SARS-CoV-2 (PCR) (Negative) Influ A Molecular Assay (Negative) Influ B Molecular Assay (Negative) 10/10/21 10/10/21 10/10/21 Range/Units 11:05 11:05 11:45 WBC (4.8-10.8) K/uL RBC (4.7-6.1) M/uL Hgb (14.0-18.0) g/dL Hct (42-52) % MCV (80-100) fL MCH (25-34) pg MCHC (32-36) g/dL RDW Std Deviation (36.4-46.3) fL RDW Coeff of Kaiden (11.5-14.5) % Plt Count (130-400) K/uL MPV (7.4-10.4) fL Immature Gran % (Auto) % Neut % (Auto) % Lymph % (Auto) % [place] % (Auto) % Eos % (Auto) % Baso % (Auto) % Neut # (Auto) (1.4-6.5) K/uL Lymph # (Auto) (1.2-3.4) K/uL [place] # (Auto) (0.11-0.59) K/uL Eos # (Auto) (0-0.5) K/uL Baso # (Auto) (0-0.2) K/uL Immature Gran # (Auto) (0.00-0.02) K/uL PT (9.0-12.0) Seconds INR (0.9-1.1) APTT (21.0-31.0) Seconds PTT Ratio D-Dimer 450 (0-500) ug/L FEU VBG pH (7.36-7.41) VBG pCO2 (38-50) mmHg VBG pO2 mmHg VBG HCO3 mmol/L VBG O2 Saturation % VBG Base Excess mEq/L Barometric Pressure mm/Hg Sodium (136-145) mmol/L Potassium (3.5-5.1) mmol/L Chloride (98-107) mmol/L Carbon Dioxide (21-32) mmol/L Anion Gap (3-11) BUN (7-18) mg/dl Creatinine (0.6-1.4) mg/dl Est Cr Clr Drug Dosing ml/min Est GFR ( Amer) ml/min Est GFR (Non-Af Amer) ml/min BUN/Creatinine Ratio (10-20) Glucose (70-99) mg/dl Calcium (8.5-10.1) mg/dl Magnesium (1.8-2.4) mg/dl Total Bilirubin (0.2-1) mg/dl AST (15-37) U/L ALT (12-78) U/L Alkaline Phosphatase (45-117) U/L Troponin I (0-0.045) ng/ml NT-Pro-B Natriuret Pep 1990 H (0-1800) pg/ml Total Protein (6.4-8.2) gm/dl Albumin (3.4-5.0) gm/dl Globulin (2.5-4.0) gm/dl Albumin/Globulin Ratio (0.9-2) SARS-CoV-2 (PCR) (Negative) Influ A Molecular Assay Negative (Negative) Influ B Molecular Assay Negative (Negative) 10/10/21 10/10/21 Range/Units 11:45 12:38 WBC (4.8-10.8) K/uL RBC (4.7-6.1) M/uL Hgb (14.0-18.0) g/dL Hct (42-52) % MCV (80-100) fL MCH (25-34) pg MCHC (32-36) g/dL RDW Std Deviation (36.4-46.3) fL RDW Coeff of Kaiden (11.5-14.5) % Plt Count (130-400) K/uL MPV (7.4-10.4) fL Immature Gran % (Auto) % Neut % (Auto) % Lymph % (Auto) % [place] % (Auto) % Eos % (Auto) % Baso % (Auto) % Neut # (Auto) (1.4-6.5) K/uL Lymph # (Auto) (1.2-3.4) K/uL [place] # (Auto) (0.11-0.59) K/uL Eos # (Auto) (0-0.5) K/uL Baso # (Auto) (0-0.2) K/uL Immature Gran # (Auto) (0.00-0.02) K/uL PT (9.0-12.0) Seconds INR (0.9-1.1) APTT (21.0-31.0) Seconds PTT Ratio D-Dimer (0-500) ug/L FEU VBG pH 7.39 (7.36-7.41) VBG pCO2 50 (38-50) mmHg VBG pO2 31 mmHg VBG HCO3 30 mmol/L VBG O2 Saturation 60.0 % VBG Base Excess 3.6 mEq/L Barometric Pressure 739.1 mm/Hg Sodium (136-145) mmol/L Potassium (3.5-5.1) mmol/L Chloride (98-107) mmol/L Carbon Dioxide (21-32) mmol/L Anion Gap (3-11) BUN (7-18) mg/dl Creatinine (0.6-1.4) mg/dl Est Cr Clr Drug Dosing ml/min Est GFR ( Amer) ml/min Est GFR (Non-Af Amer) ml/min BUN/Creatinine Ratio (10-20) Glucose (70-99) mg/dl Calcium (8.5-10.1) mg/dl Magnesium (1.8-2.4) mg/dl Total Bilirubin (0.2-1) mg/dl AST (15-37) U/L ALT (12-78) U/L Alkaline Phosphatase (45-117) U/L Troponin I (0-0.045) ng/ml NT-Pro-B Natriuret Pep (0-1800) pg/ml Total Protein (6.4-8.2) gm/dl Albumin (3.4-5.0) gm/dl Globulin (2.5-4.0) gm/dl Albumin/Globulin Ratio (0.9-2) SARS-CoV-2 (PCR) NEGATIVE (Negative) Influ A Molecular Assay (Negative) Influ B Molecular Assay (Negative) Imaging Data Radiologist's Impression: Chest X-Ray 10/10/21 11:12 XR chest 1V portable CLINICAL HISTORY: SOB TECHNIQUE: Single frontal radiograph of the chest was obtained. Comparison: Comparison is made to chest one view 05/14/2021 FINDINGS: No lines and tubes are seen. The cardiomediastinal silhouette is normal. The lungs are clear. No evidence of pleural effusion or pneumothorax. IMPRESSION: No acute chest disease. ACT 112: Negative or not required by law. Electronically signed by: Shawn Camejo M.D. 10/10/2021 11:33 AM ECG Data Interpretation: Sinus rhythm with rate of 78. IL 214 QRS 66 QTC 405. First-degree AV block present. No ST elevation or ST depression. PVCs present. [facility] Narrative 1136: The patient was evaluated in room C5. A complete history and physical exam was performed Cardiac monitoring: An order was placed for continuous cardiac monitoring. The monitor shows a rate of 80 with sinusrhythm Patient was found to be hypoxic on room air. Supplemental oxygen improve the patient's oxygen saturation. 1300: Vital signs stable. Follow-up labs within normal limits with exception of elevated proBNP of 1989. Troponin and D-dimer negative. Chest x-ray negative. Patient be treated with Lasix 40 mg IV push. Patient states he feels better after 1 DuoNeb. [facility] Impression & Plan Hypoxia Critical Care Time Critical Care Time: Yes Total Critical Care Time: 51 I have personally spent greater than 51 minutes of critical care time in the direct management of this patient. This includes bedside care, interpretation of diagnostic studies, and testing, discussion with consultants, patient, and family members, and other required patient management activities. This 51 minutes is in excess of all separately billable procedures. Discharge Plan Visit Data Chief Complaint: Shortness of Breath/Dyspnea Stated Complaint: COUGH/COLD/HEART CONDITION/SOB ED Provider: Jeanmarie Vega Discharge Problem: Hypoxia Patient Disposition: Admitted As Inpatient Discharge Instructions Interventions: ED Discharge Assessment Last Done: 10/10/21 15:09
[2021-10-10] MEDS: LEVALBUTEROL HCL 1.25 MG/3 ML NEB NEB SCH (18:20)
[2021-10-10] MEDS: ATORVASTATIN 40 MG TAB PO SCH (20:24)
[2021-10-10] MEDS ORDERED: BENZONATATE 100 MG CAPSULE PO PRN (20:56)
[2021-10-10] MEDS ORDERED: XOPENEX/ATROVENT 1.25mg/0.5MG NEB COMBO NEB STA (23:44)
[2021-10-10] MEDS ORDERED: IPRATROPIUM BROMIDE NEB SOLN 0.02% 2.5 ML VIAL INH STA (23:51)
[2021-10-10] MEDS ORDERED: LEVALBUTEROL 1.25MG/0.5ML NEB INH STA (23:51)
[2021-10-11] MEDS ORDERED: methylPREDNISolone 20 MG in SYRINGE 0 ML IV ONE
[2021-10-11] MEDS: LEVALBUTEROL HCL 1.25 MG/3 ML NEB NEB SCH ×3 (00:12→12:58)
[2021-10-11 01:17] LABS: Base Excess ABG 3.2 mEq/L (-9-1.8); HCO3 ABG 27 mmol/L (19-24); Oxygen Saturation ABG 82.6 % (90-95); PCO2 ABG 40 mmHg (35-46); PO2 ABG 46 mmHg (80-95); pH ABG 7.45 (7.35-7.45)
[2021-10-11 01:19] LABS: Allen Test POS (Pos)
[2021-10-11 07:03] LABS: Hematocrit (blood only) 41.1 % (42-52); Hemoglobin 13.7 g/dL (14.0-18.0); Lymphocytes # (auto) 0.41 K/uL (1.2-3.4); Lymphocytes % (auto) 8.5 %; Mean Corpuscular Hemoglobin 31.5 pg (25-34); Mean Corpuscular Hgb Conc 33.3 g/dL (32-36); Mean Corpuscular Volume 94.5 fL (80-100); Monocytes # (auto) 0.02 K/uL (0.11-0.59); Monocytes % (auto) 0.4 %; Neutrophils # (auto) 4.41 K/uL (1.4-6.5); Neutrophils % (auto) 91.1 %; Platelet Count 165 K/uL (130-400); RDW Coefficient of Variation 13.8 % (11.5-14.5); RDW Standard Deviation 47.8 fL (36.4-46.3); Red Blood Count 4.35 M/uL (4.7-6.1); White Blood Count 4.84 K/uL (4.8-10.8)
[2021-10-11 07:30] LABS: Albumin Level 3.3 gm/dl (3.4-5.0); BUN Creatinine Ratio 26.6 (10-20); Calcium 9.1 mg/dl (8.5-10.1); Creatinine Clr Calc Pharmacy 55.2 ml/min; Est GFR (African American) 66.7 ml/min; Est GFR (Non-African American) 57.6 ml/min; Potassium 4.1 mmol/L (3.5-5.1)
[2021-10-11 07:33] LABS: Albumin Globulin Ratio 0.8 (0.9-2); Bilirubin,Total 0.7 mg/dl (0.2-1); Globulin 4.3 gm/dl (2.5-4.0); Total Protein 7.6 gm/dl (6.4-8.2)
--- NOTE | 2021-10-11 07:41 | XRay Report ---
XR chest 1V portable HISTORY: 80 years-old Male sob acute shortness of breath COMPARISON: Chest radiograph 10/10/2021 TECHNIQUE: Portable AP view of the chest FINDINGS: The cardiomediastinal and hilar silhouettes are within normal limits. No pneumothorax, pleural effusi on, airspace consolidation or overt pulmonary edema. No acute fracture. IMPRESSION: No acute process. ACT 112: Negative or not required by law. The above report was generated using voice recognition software. It may contain grammatical, syntax o r spelling errors. Electronically signed by: Ravi Rodriguez M.D. 10/11/2021 7:40 AM
[2021-10-11] MEDS: predniSONE 20 MG TAB PO SCH (08:16)
[2021-10-11] MEDS: amLODIPine BESYLATE 5 MG TAB PO SCH (08:16)
[2021-10-11] MEDS: CLOPIDOGREL BISULFATE 75 MG TAB PO SCH (08:16)
[2021-10-11] MEDS: guaiFENesin 600 MG TABCR PO SCH ×2 (08:16→20:23)
[2021-10-11] MEDS: DOXYCYCLINE HYCLATE 100 MG CAP PO SCH ×2 (08:16→20:23)
[2021-10-11] MEDS: ASPIRIN 81 MG ECTAB PO SCH (08:17)
[2021-10-11] MEDS ORDERED: METOPROLOL SUCC 25MG EXT REL TAB PO SCH (09:00)
--- NOTE | 2021-10-11 09:56 | Electrocardiogram Report ---
Test Reason : Blood Pressure : / mmHG Vent. Rate : 078 BPM Atrial Rate : 078 BPM P-R Int : 214 ms QRS Dur : 066 ms QT Int : 356 ms P-R-T Axes : 050 071 083 degrees QTc Int : 405 ms Poor data quality, interpretation may be adversely affected Sinus rhythm with 1st degree A-V block with occasional Premature ventricular complexes Anteroseptal infarct , age undetermined , may be lead placement Abnormal ECG When compared with ECG of 15-MAY-2021 05:18, Anterolateral infarct is now Present Confirmed by Bustre Perry ([id number]) on 10/11/2021 9:56:29 AM Referred By: REFERRED SELF Confirmed By:Buster Perry
--- NOTE | 2021-10-11 14:56 | Hospitalist Progress Note ---
Date of Service October 11, 2021 Assessment & Plan (1) Acute respiratory failure with hypoxia: Plan: Currently requireing 8LPM via Oxymask likely from complicated infectious bronchitis. (2) Acute bronchitis: Plan: Improved with treatment so far this admission but still wheezing and coughing and with persistent hypoxia. Not septic and no history of smoking or lung disease that is known. No evidence of pneumonia or pulmonary edema. One dose solumedrol IV given overnight and he is on prednisone. With his level of hypoxia and wheezing will switch to scheduled IV steroids now, schedule nebuli zed bronchodilators and schedule Tessalon Perles. Mucinex is also scheduled. (3) Moderate aortic stenosis: Plan: Known history of valve disease, per cardiology. (4) HTN (hypertension) with goal to be determined: Plan: Blood pressure at goal, restarted lisinopril at 50% dose. (5) CKD (chronic kidney disease), stage III: Plan: Chronic, stable, creatinine at baseline. (6) CAD (coronary artery disease): Plan: Chronic, appears stable, no chest pain. Troponin was negative on admission. Continue medical management (7) Ischemic cardiomyopathy: Plan: Known history of ischemic cardiomyopathy with reduced EF to 45% per echo in June 2021. Borderline severe aortic stenosis. Continues on metoprolol succinate, Plavix 75, aspirin 81 (8) DVT prophylaxis: Plan: Lovenox Full Dispo-PCU DO Pavan Shi Hospitalist Admission and Anticipated Discharge Date Admission Date: October 10, 2021 Subjective 80-year-old man with CAD and aortic sclerosis, no known history of lung disease presented with 1 week of productive cough and wheezing. He was placed on steroids and intermittent bronchodilators and given 1 dose of Lasix on admission. Overall he feels improved but no therapies have been continued consistently. He diuresed approximately net 1L in the last 24 hours and is not hypervolemic on exam. He denies any weight gain or swelling and is at the bedside and concurs with this. On exam he is wheezing significantly and he is requiring 8 L of supplemental oxygen with a baseline of not requiring supplemental oxygen at all. He reports his cough is improved denies any chest pain and is still tolerating p.o. Afebrile overnight. reports they had a wedding 2 weeks ago and 60 people were present. Multiple sick contacts are possible but unknown at this point. Chest x-ray is negative for any pneumonia. Review of Systems Review of Systems: All other systems reviewed and negative except as indicated above Physical Exam Physical Exam: CONSTITUTIONAL: WNWD, vitals as above, generally well- appearing EYES: normal conjunctivae, no scleral icterus ENT: external ear and nose normal, oropharynx clear, no maxillary or ethmoid sinus tenderness NECK: trachea midline, no lymphadenopathy RESPIRATORY: wheezing throughout all lung bain, no crackles or rales. normal respiratory effort on 8LPM oxymask. CARDIOVASCULAR: regular rate and rhythm, S1 and 2 heard without murmurs, gallops or rubs, no JVD, no peripheral edema GASTROINTESTINAL: soft, nontender,protuberant but ND, no guarding MUSCULOSKELETAL: strength 5/5 throughout, head is normocephalic and atraumatic SKIN: warm and dry NEUROLOGIC: No facial palsy, no dysarthria. CN 2-12 grossly intact, no sensory deficit, normal cognition, normal speech, no tremor. No gross focal deficits. PSYCHIATRIC: alert cooperative and oriented to person, place and time. Results & Data Results & Data ([facility]) Vital Signs (Past 12 Hours) Vital Signs Temp Pulse Pulse Resp BP Pulse Ox 10/11/21 12:59 79 18 93 10/11/21 11:25 36.6 C 82 18 112/77 91 10/11/21 08:54 70 10/11/21 08:53 90 10/11/21 07:51 36.8 C 84 18 128/76 88 L 10/11/21 06:57 86 19 91 10/11/21 05:50 90 10/11/21 03:25 86 10/11/21 03:07 37.0 C 64 20 117/74 91 Laboratory Results Short CBC 10/11/21 Range/Units 05:32 WBC 4.84 (4.8-10.8) K/uL Hgb 13.7 L (14.0-18.0) g/dL Hct 41.1 L (42-52) % Plt Count 165 (130-400) K/uL BMP 10/11/21 05:32 Sodium 138 Potassium 4.1 Chloride 105 Carbon Dioxide 27 BUN 32 H Creatinine 1.20 Glucose 141 H Calcium 9.1 Liver Function 10/11/21 Range/Units 05:32 Total Bilirubin 0.7 (0.2-1) mg/dl AST 25 (15-37) U/L ALT 33 (12-78) U/L Alkaline Phosphatase 132 H (45-117) U/L Albumin 3.3 L (3.4-5.0) gm/dl Diagnostic Findings Chest X-Ray 10/10/21 23:45 XR chest 1V portable HISTORY: 80 years-old Male sob acute shortness of breath COMPARISON: Chest radiograph 10/10/2021 TECHNIQUE: Portable AP view of the chest FINDINGS: The cardiomediastinal and hilar silhouettes are within normal limits. No pneumothorax, pleural effusion, airspace consolidation or overt pulmonary edema. No acute fracture. IMPRESSION: No acute process. ACT 112: Negative or not required by law. The above report was generated using voice recognition software. It may contain grammatical, syntax or spelling errors. Electronically signed by: Ravi Rodriguez M.D. 10/11/2021 7:40 AM Medications Administered Current Inpatient Medications Acetaminophen (Acetaminophen 325 Mg Tab) 650 mg PO Q4H PRN PRN Reason: Pain or Fever Stop: 11/09/21 15:14 Amlodipine Besylate (Amlodipine Besylate 5 Mg Tab) [facility] [place] Stop: 11/10/21 08:59 Last Admin: 10/11/21 08:16 Dose: 5 mg Documented by: Aspirin (Aspirin 81 Mg Ectab) 81 mg PO QAM [facility] Stop: 11/10/21 08:59 Last Admin: 10/11/21 08:17 Dose: 81 mg Documented by: Atorvastatin Calcium (Atorvastatin 40 Mg Tab) 80 mg PO PM [facility] Stop: 11/09/21 20:59 Last Admin: 10/10/21 20:24 Dose: 80 mg Documented by: Benzonatate (Benzonatate 100 Mg Capsule) 100 mg PO TID PRN PRN Reason: Cough Stop: 11/09/21 20:55 Last Admin: 10/10/21 21:37 Dose: 100 mg Documented by: Clopidogrel Bisulfate (Clopidogrel Bisulfate 75 Mg Tab) 75 mg PO QAM [facility] Stop: 11/10/21 08:59 Last Admin: 10/11/21 08:16 Dose: 75 mg Documented by: Doxycycline Hyclate (Doxycycline Hyclate 100 Mg Cap) 100 mg PO BID [facility] Stop: 10/17/21 15:34 Last Admin: 10/11/21 08:16 Dose: 100 mg Documented by: Guaifenesin (Guaifenesin 600 Mg Tabcr) 600 mg PO Q12 OPAL Stop: 11/09/21 15:59 Last Admin: 10/11/21 08:16 Dose: 600 mg Documented by: Levalbuterol HCl (Levalbuterol Hcl 1.25 Mg/3 Ml Neb) 1.25 mg INH Q4H PRN PRN Reason: Shortness Of Breath Or Wheezing Stop: 11/09/21 16:48 Metoprolol Succinate (Metoprolol Succ 25mg Ext Rel Tab) 25 mg PO QAM OPAL Stop: 11/10/21 08:59 Last Admin: 10/11/21 08:17 Dose: 25 mg Documented by: Ondansetron HCl (Ondansetron Inj 2 Mg/Ml 2 Ml Vial) 4 mg IV Q6H PRN PRN Reason: Nausea Stop: 11/09/21 15:14 Prednisone (Prednisone 20 Mg Tab) 40 mg PO DAILY OPAL Stop: 11/09/21 15:59 Last Admin: 10/11/21 08:16 Dose: 40 mg Documented by:
[2021-10-11] MEDS ORDERED: CARBOHYDRATES FOR HYPOGLYCEMIA PO PRN (15:53)
[2021-10-11] MEDS ORDERED: GLUCOSE 10 TABS/TUBE PO PRN (15:53)
[2021-10-11] MEDS ORDERED: GLUCOSE 40% GEL 15 GM TUBE PO PRN (15:53)
[2021-10-11] MEDS ORDERED: GLUCAGON FOR INJ 1 MG VIAL SQ PRN (15:53)
[2021-10-11] MEDS ORDERED: DEXTROSE 50% 50 ML SYRINGE IV PRN (15:53)
[2021-10-11] MEDS: LEVALBUTEROL HCL 1.25 MG/3 ML NEB INH SCH ×2 (16:31→20:15)
[2021-10-11] MEDS: methylPREDNISolone 40 MG in SYRINGE 0 ML IV SCH (16:59)
[2021-10-11] MEDS: INSULIN ASPART 100 UNITS/ML 3 ML PEN SC SCH ×2 (16:59→20:27)
[2021-10-11] MEDS: BENZONATATE 100 MG CAPSULE PO SCH (20:23)
[2021-10-11] MEDS: ENOXAPARIN INJ 40 MG/0.4 ML SYR SQ SCH (20:24)
[2021-10-11] MEDS: ATORVASTATIN 40 MG TAB PO SCH (20:24)
[2021-10-12] MEDS: methylPREDNISolone 40 MG in SYRINGE 0 ML IV SCH ×3 (00:14→16:43)
[2021-10-12 05:59] LABS: Hematocrit (blood only) 40.2 % (42-52); Hemoglobin 13.6 g/dL (14.0-18.0); Mean Corpuscular Hemoglobin 31.8 pg (25-34); Mean Corpuscular Hgb Conc 33.8 g/dL (32-36); Mean Corpuscular Volume 93.9 fL (80-100); Mean Platelet Volume 10.8 fL (7.4-10.4); Platelet Count 191 K/uL (130-400); RDW Coefficient of Variation 13.9 % (11.5-14.5); RDW Standard Deviation 47.7 fL (36.4-46.3); Red Blood Count 4.28 M/uL (4.7-6.1); White Blood Count 13.41 K/uL (4.8-10.8)
[2021-10-12 06:28] LABS: Albumin Globulin Ratio 0.7 (0.9-2); Albumin Level 3.3 gm/dl (3.4-5.0); Bilirubin,Total 0.6 mg/dl (0.2-1); Calcium 9.1 mg/dl (8.5-10.1); Creatinine Clr Calc Pharmacy 49.8 ml/min; Est GFR (African American) 58.9 ml/min; Est GFR (Non-African American) 50.8 ml/min; Globulin 4.4 gm/dl (2.5-4.0); Total Protein 7.7 gm/dl (6.4-8.2)
[2021-10-12 06:34] LABS: Potassium 4.4 mmol/L (3.5-5.1)
[2021-10-12] MEDS: LEVALBUTEROL HCL 1.25 MG/3 ML NEB INH SCH ×4 (07:05→19:27)
[2021-10-12] MEDS: ASPIRIN 81 MG ECTAB PO SCH (08:27)
[2021-10-12] MEDS: INSULIN ASPART 100 UNITS/ML 3 ML PEN SC SCH ×4 (08:27→20:50)
[2021-10-12] MEDS: guaiFENesin 600 MG TABCR PO SCH ×2 (08:27→20:53)
[2021-10-12] MEDS: DOXYCYCLINE HYCLATE 100 MG CAP PO SCH ×2 (08:28→20:53)
[2021-10-12] MEDS: METOPROLOL SUCC 25MG EXT REL TAB PO SCH (08:28)
[2021-10-12] MEDS: BENZONATATE 100 MG CAPSULE PO SCH ×3 (08:28→20:52)
[2021-10-12] MEDS: lisinopril 20 MG TAB PO SCH (08:28)
[2021-10-12] MEDS: amLODIPine BESYLATE 5 MG TAB PO SCH (08:28)
[2021-10-12] MEDS: CLOPIDOGREL BISULFATE 75 MG TAB PO SCH (08:28)
[2021-10-12] MEDS ORDERED: METOPROLOL SUCC 25MG EXT REL TAB PO SCH (09:00)
--- NOTE | 2021-10-12 16:04 | Hospitalist Progress Note ---
Date of Service October 12, 2021 Assessment & Plan (1) Acute respiratory failure with hypoxia: Plan: Currently requireing 8LPM via Oxymask likely from complicated infectious bronchitis. Condition has been deteriorating and he has been requiring up to 15 L of oxygen to maintain saturation Will get CTA to rule out pulmonary embolism (2) Acute bronchitis: Plan: Improved with treatment so far this admission but still wheezing and coughing and with persistent hypoxia. No evidence of pneumonia or pulmonary edema. With his level of hypoxia and wheezing will continue scheduled IV steroids now, schedule nebulized bronchodilators and schedule Tessalon Perles. Mucinex is also scheduled. We will continue current management (3) Moderate aortic stenosis: Plan: Known history of valve disease, per cardiology. No chest pain and/or palpitation (4) HTN (hypertension) with goal to be determined: Plan: Blood pressure at goal, restarted lisinopril at 50% dose. (5) CKD (chronic kidney disease), stage III: Plan: Chronic, stable, creatinine at baseline. (6) CAD (coronary artery disease): Plan: Chronic, appears stable, no chest pain. Troponin was negative on admission. Continue medical management Denies any cardiac symptoms of pain and/or palpitation (7) Ischemic cardiomyopathy: Plan: Known history of ischemic cardiomyopathy with reduced EF to 45% per echo in June 2021. Borderline severe aortic stenosis. Continues on metoprolol succinate, Plavix 75, aspirin 81 Repeat echo has been noted (8) DVT prophylaxis: Plan: Lovenox Full Dispo-PCU Admission and Anticipated Discharge Date Admission Date: October 10, 2021 Subjective 10/12/2021 The patient was seen and examined in telemetry unit He remains very short of breath and has been requiring up to 15 L of oxygen via oxygen mask to maintain saturation Denies any chest pain and/or palpitation Has cough without any significant phlegm and/or hemoptysis Review of Systems Review of Systems: All systems reviewed and are unremarkable except as noted below Respiratory: Acute shortness of breath with use of accessory muscles to breath Cardiovascular: Additional Comments: No chest pain and/or palpitation Physical Exam Physical Exam: Sitting at the edge of the bed with acute distress secondary to shortness of breath Constitutional: well developed, well nourished, + ill appearing and + obese Eyes: PERRL, conjunctivae normal, anicteric sclerae ENMT: external ear and nose normal, oropharynx normal Neck: trachea midline, no thyromegaly Respiratory: + respiratory distress, + labored breathing and + cough Auscu ltation: + diminished lung sounds, + crackles and + wheezes Cardiovascular: Rate/Rhythm: regular rate and regular rhythm; not tachycardic Heart Sounds: normal S1, normal S2 and + murmur (2/6 ESM over precordium) Extremities: + edema (Trace to 1+ edema bilaterally) Gastrointestinal (Abdomen): Inspection/Auscultation: normal bowel sounds; abdomen not distended Percussion/Palpation: abdomen soft; abdomen nontender Musculoskeletal: No acute arthritis in any joint Neurologic: Alert, awake and oriented x3. Generally weak but no focal neuro deficit Psychiatric: A+Ox3, euthymic affect Lymphatic: no cervical or axillary lymphadenopathy Results & Data Results & Data ([facility]) Vital Signs (Past 12 Hours) Vital Signs Temp Pulse Pulse Resp BP Pulse Ox 10/12/21 15:25 78 18 93 10/12/21 14:54 77 10/12/21 12:43 36.4 C L 75 18 106/66 91 10/12/21 10:28 80 20 92 10/12/21 08:00 90 10/12/21 07:45 80 10/12/21 07:44 87 L 10/12/21 07:43 83 L 10/12/21 07:05 62 18 87 L 10/12/21 06:46 36.5 C 71 22 125/73 89 L Laboratory Results Short CBC 10/12/21 Range/Units 05:23 WBC 13.41 H (4.8-10.8) K/uL Hgb 13.6 L (14.0-18.0) g/dL Hct 40.2 L (42-52) % Plt Count 191 (130-400) K/uL BMP 10/12/21 05:23 Sodium 135 L Potassium 4.4 Chloride 103 Carbon Dioxide 27 BUN 49 H D Creatinine 1.33 Glucose 165 H Calcium 9.1 Liver Function 10/12/21 Range/Units 05:23 Total Bilirubin 0.6 (0.2-1) mg/dl AST 22 (15-37) U/L ALT 32 (12-78) U/L Alkaline Phosphatase 122 H (45-117) U/L Albumin 3.3 L (3.4-5.0) gm/dl Medications Administered Current Inpatient Medications Acetaminophen (Acetaminophen 325 Mg Tab) 650 mg PO Q4H PRN PRN Reason: Pain or Fever Stop: 11/09/21 15:14 Amlodipine Besylate (Amlodipine Besylate 5 Mg Tab) 5 mg PO QAM [facility] Stop: 11/10/21 08:59 Last Admin: 10/12/21 08:28 Dose: 5 mg Documented by: Aspirin (Aspirin 81 Mg Ectab) 81 mg PO QAM [facility] Stop: 11/10/21 08:59 Last Admin: 10/12/21 08:27 Dose: 81 mg Documented by: Atorvastatin Calcium (Atorvastatin 40 Mg Tab) 80 mg PO PM [facility] Stop: 11/09/21 20:59 Last Admin: 10/11/21 20:24 Dose: 80 mg Documented by: Benzonatate (Benzonatate 100 Mg Capsule) 100 mg PO TID [facility] Stop: 11/10/21 20:59 Last Admin: 10/12/21 13:52 Dose: 100 mg Documented by: Clopidogrel Bisulfate (Clopidogrel Bisulfate 75 Mg Tab) 75 mg PO QAM [facility] Stop: 11/10/21 08:59 Last Admin: 10/12/21 08:28 Dose: 75 mg Documented by: Dextrose (Dextrose 50% 50 Ml Syringe) 25 - 50 ml IV UD PRN; Protocol PRN Reason: Hypoglycemia Protocol Stop: 11/10/21 15:52 Doxycycline Hyclate (Doxycycline Hyclate 100 Mg Cap) 100 mg PO BID [facility] Stop: 10/17/21 15:34 Last Admin: 10/12/21 08:28 Dose: 100 mg Documented by: Enoxaparin Sodium (Enoxaparin Inj 40 Mg/0.4 Ml Syr) 40 mg SQ Q24H [facility] Stop: 11/10/21 16:44 Last Admin: 10/11/21 20:24 Dose: 40 mg Documented by: Glucagon (Glucagon For Inj 1 Mg Vial) 1 mg SQ UD PRN; Protocol PRN Reason: Hypoglycemia Protocol Stop: 11/10/21 15:52 Glucose (Glucose 10 Tabs/Tube) 4 - 8 tabs PO UD PRN; Protocol PRN Reason: Hypoglycemia Protocol Stop: 11/10/21 15:52 Glucose (Glucose 40% Gel 15 Gm Tube) 15 - 30 gm PO UD PRN; Protocol PRN Reason: Hypoglycemia Protocol Stop: 11/10/21 15:52 Guaifenesin (Guaifenesin 600 Mg Tabcr) 600 mg PO Q12 [facility] Stop: 11/09/21 15:59 Last Admin: 10/12/21 08:27 Dose: 600 mg Documented by: Methylprednisolone 40 mg/ (Syringe) 0.64 mls @ 1.5 mls/min IV Q8H [facility] Stop: 11/10/21 15:59 Last Admin: 10/12/21 08:27 Dose: 1.5 mls/min Documented by: Insulin Aspart (Insulin Aspart 100 Units/Ml 3 Ml Pen) 0 units SC ACHS [facility] Stop: 11/10/21 16:29 Last Admin: 10/12/21 11:36 Dose: Not Given Documented by: Levalbuterol HCl (Levalbuterol Hcl 1.25 Mg/3 Ml Neb) 1.25 mg INH QIDR [facility] Stop: 11/10/21 16:59 Last Admin: 10/12/21 15:24 Dose: 1.25 mg Documented by: Lisinopril (Lisinopril 20 Mg Tab) 20 mg PO QAM [facility] Stop: 11/11/21 08:59 Last Admin: 10/12/21 08:28 Dose: 20 mg Documented by: Metoprolol Succinate (Metoprolol Succ 25mg Ext Rel Tab) 25 mg PO DAILY [facility] Stop: 11/11/21 08:59 Last Admin: 10/12/21 08:28 Dose: 25 mg Documented by: Miscellaneous (Carbohydrates For Hypoglycemia ) 15 - 30 gm PO UD PRN PRN Reason: Hypoglycemia Protocol Stop: 11/10/21 15:52 Ondansetron HCl (Ondansetron Inj 2 Mg/Ml 2 Ml Vial) 4 mg IV Q6H PRN PRN Reason: Nausea Stop: 11/09/21 15:14
[2021-10-12] MEDS ORDERED: OPTIRAY 320 125ml IV ONE (16:10)
--- NOTE | 2021-10-12 16:31 | CT Scan Report ---
CT angio chest PE protocol CLINICAL HISTORY: Shortness of breath. Evaluate for pulmonary embolus. COMPARISON STUDY: Portable chest from 10/10/2021 CT DOSE: 687.56 mGycm TECHNIQUE: CT Angio of the chest was performed.followed by image post processing with coronal, and s agittal MIP reformats. Contrast Volume: Optiray 320, 118 ml FINDINGS: Vasculature: There is homogeneous perfusion of the pulmonary vasculature bilaterally. No intraluminal filling defects or evidence for pulmonary embolus is seen. Airway: The airway is clear. No endobronchial lesion is identified. Lungs: There is minimal linear scarring seen within the left upper lobe anteriorly. A subcentimeter c alcified granuloma seen within the right upper lobe posteriorly. The lungs are otherwise clear of acu te alveolar opacities, air bronchograms or pulmonary nodules. Pleura: There is no evidence for pleural effusion. There is no evidence for pneumothorax. Mediastinum: There is no evidence for pathologic adenopathy. The heart size is within normal limits. There is mild coronary artery calcification. The thoracic aorta is within normal limits. Mild atheros clerotic calcification is also seen involving the aortic valve and aortic arch. There is no evidence for pericardial effusion. Upper abdomen:The adrenal glands are normal bilaterally. Osseous structures: There is no acute osseous pathology. Impression: 1. No CTA evidence for pulmonary embolus. 2. No acute chest disease. 3. Nonacute findings are delineated above. ACT 112: Negative or not required by law. Electronically signed by: Daniel Schmitz M.D. 10/12/2021 4:29 PM
[2021-10-12] MEDS: ATORVASTATIN 40 MG TAB PO SCH (20:52)
[2021-10-12] MEDS: ENOXAPARIN INJ 40 MG/0.4 ML SYR SQ SCH (20:54)
[2021-10-13] MEDS: methylPREDNISolone 40 MG in SYRINGE 0 ML IV SCH ×4 (00:25→23:55)
[2021-10-13] MEDS: LEVALBUTEROL HCL 1.25 MG/3 ML NEB INH SCH ×4 (07:09→19:29)
[2021-10-13 07:13] LABS: BUN Creatinine Ratio 47.6 (10-20); Creatinine Clr Calc Pharmacy 43.3 ml/min; Est GFR (African American) 49.7 ml/min; Est GFR (Non-African American) 42.9 ml/min; Magnesium 2.4 mg/dl (1.8-2.4); Phosphorus 5.3 mg/dl (2.5-4.9); Potassium 4.3 mmol/L (3.5-5.1)
[2021-10-13 07:15] LABS: Albumin Globulin Ratio 0.8 (0.9-2); Bilirubin,Total 0.5 mg/dl (0.2-1)
[2021-10-13 07:18] LABS: Hematocrit (blood only) 38.3 % (42-52); Hemoglobin 12.6 g/dL (14.0-18.0); Mean Corpuscular Hemoglobin 31.3 pg (25-34); Mean Corpuscular Hgb Conc 32.9 g/dL (32-36); Mean Corpuscular Volume 95.3 fL (80-100); Mean Platelet Volume 11.2 fL (7.4-10.4); Platelet Count 204 K/uL (130-400); RDW Coefficient of Variation 14.3 % (11.5-14.5); RDW Standard Deviation 50.2 fL (36.4-46.3); Red Blood Count 4.02 M/uL (4.7-6.1); White Blood Count 16.24 K/uL (4.8-10.8)
[2021-10-13 07:20] LABS: Echinocytes 2+; Immature Granulocytes # (auto) 0.05 K/uL (0.00-0.02); Immature Granulocytes % (auto) 0.3 %; Lymphocytes # (auto) 0.42 K/uL (1.2-3.4); Lymphocytes % (auto) 2.6 %; Monocytes # (auto) 0.12 K/uL (0.11-0.59); Monocytes % (auto) 0.7 %; Neutrophils # (auto) 15.65 K/uL (1.4-6.5); Neutrophils % (auto) 96.4 %; Ovalocytes 2+
[2021-10-13] MEDS: INSULIN ASPART 100 UNITS/ML 3 ML PEN SC SCH ×4 (07:53→20:30)
[2021-10-13] MEDS: lisinopril 20 MG TAB PO SCH (09:12)
[2021-10-13] MEDS: BENZONATATE 100 MG CAPSULE PO SCH ×3 (09:12→20:26)
[2021-10-13] MEDS: guaiFENesin 600 MG TABCR PO SCH ×2 (09:12→20:27)
[2021-10-13] MEDS: DOXYCYCLINE HYCLATE 100 MG CAP PO SCH ×2 (09:12→20:26)
[2021-10-13] MEDS: METOPROLOL SUCC 25MG EXT REL TAB PO SCH (09:13)
[2021-10-13] MEDS: CLOPIDOGREL BISULFATE 75 MG TAB PO SCH (09:13)
[2021-10-13] MEDS: amLODIPine BESYLATE 5 MG TAB PO SCH (09:13)
[2021-10-13] MEDS: ASPIRIN 81 MG ECTAB PO SCH (09:13)
--- NOTE | 2021-10-13 16:04 | Hospitalist Progress Note ---
Date of Service October 13, 2021 Assessment & Plan (1) Acute respiratory failure with hypoxia: Plan: Currently requireing 8LPM via Oxymask likely from complicated infectious bronchitis. Condition has been deteriorating and he has been requiring up to 15 L of oxygen to maintain saturation CTA did not show any pulmonary embolism or any other significant abnormalities Clinically better today and has been requiring less oxygen to maintain saturation We will continue current management (2) Acute bronchitis: Plan: Improved with treatment so far this admission but still wheezing and coughing and with persistent hypoxia. No evidence of pneumonia or pulmonary edema. With his level of hypoxia and wheezing will continue scheduled IV steroids now, schedule nebulized bronchodilators and schedule Tessalon Perles. Mucinex is also scheduled. We will continue current management (3) Moderate aortic stenosis: Plan: Known history of valve disease, per cardiology. No chest pain and/or palpitation Echo of the heart showed-normal LV chamber size with mild concentric LVH, mildly reduced LV systolic function with EF 40 to 45%, moderate sized apical, posterior and anterolateral wall motion abnormalities, hypokinesis to akinesis of the segments, mild to moderate hypokinesis of the septal and apical brasher, grade 1 diastolic dysfunction, moderately calcified trileaflet aortic valve with moderate aortic stenosis with mild to aortic regurgitation, mild MR and no significant change compared with prior study of 05/14/2021 We will continue current management (4) HTN (hypertension) with goal to be determined: Plan: Blood pressure at goal, restarted lisinopril at 50% dose. (5) CKD (chronic kidney disease), stage III: Plan: Chronic, stable, creatinine at baseline. (6) CAD (coronary artery disease): Plan: Chronic, appears stable, no chest pain. Troponin was negative on admission. Continue medical management Denies any cardiac symptoms of pain and/or palpitation (7) Ischemic cardiomyopathy: Plan: Known history of ischemic cardiomyopathy with reduced EF to 45% per echo in June 2021. Borderline severe aortic stenosis. Continues on metoprolol succinate, Plavix 75, aspirin 81 Repeat echo has been noted (8) DVT prophylaxis: Plan: Lovenox Full Dispo-PCU Admission and Anticipated Discharge Date Admission Date: October 10, 2021 Subjective 10/12/2021 The patient was seen and examined in telemetry unit He remains very short of breath and has been requiring up to 15 L of oxygen via oxygen mask to maintain saturation Denies any chest pain and/or palpitation Has cough without any significant phlegm and/or hemoptysis 10/13/2021 The patient was seen and examined in telemetry unit He has been feeling much better and oxygen requirement has gone down to 10 L/min to maintain saturation He denies any chest pain or palpitation, any abdominal pain nausea and or vomiting Review of Systems Review of Systems: All systems reviewed and are unremarkable except as noted below Respiratory: Acute shortness of breath with use of accessory muscles to breath Cardiovascular: Additional Comments: No chest pain and/or palpitation Physical Exam Physical Exam: Sitting at the edge of the bed with acute distress secondary to shortness of breath Constitutional: well developed, well nourished, + ill appearing and + obese Eyes: PERRL, conjunctivae normal, anicteric sclerae ENMT: external ear and nose normal, oropharynx normal Neck: trachea midline, no thyromegaly Respiratory: + respiratory distress, + labored breathing and + cough Auscultation: + diminished lung sounds, + crackles and + wheezes Cardiovascular: Rate/Rhythm: regular rate and regular rhythm; not tachycardic Heart Sounds: normal S1, normal S2 and + murmur (2/6 ESM over precordium) Extremities: + edema (Trace to 1+ edema bilaterally) Gastrointestinal (Abdomen): Inspection/Auscultation: normal bowel sounds; abdomen not distended Percussion/Palpation: abdomen soft; abdomen nontender Musculoskeletal: No acute arthritis in any joint Neurologic: Alert, awake and oriented x3. No focal sensory and motor deficit appreciated Psychiatric: A+Ox3, euthymic affect Lymphatic: no cervical or axillary lymphadenopathy Results & Data Results & Data ([facility]) Vital Signs (Past 12 Hours) Vital Signs Temp Pulse Pulse Resp BP Pulse Ox 10/13/21 15:56 36.5 C 61 18 114/62 93 10/13/21 15:21 67 10/13/21 15:04 75 20 92 10/13/21 11:45 36.5 C 64 18 112/65 96 10/13/21 11:37 92 10/13/21 10:42 64 18 96 10/13/21 09:01 18 97 10/13/21 09:00 18 98 10/13/21 07:57 66 10/13/21 07:54 36.4 C L 73 19 110/59 L 89 L 10/13/21 07:10 79 18 93 Laboratory Results Short CBC 10/13/21 Range/Units 05:42 WBC 16.24 H (4.8-10.8) K/uL Hgb 12.6 L (14.0-18.0) g/dL Hct 38.3 L (42-52) % Plt Count 204 (130-400) K/uL BMP 10/13/21 05:42 Sodium 136 Potassium 4.3 Chloride 104 Carbon Dioxide 26 BUN 73 H Creatinine 1.53 H Glucose 144 H Calcium 9.0 Liver Function 10/13/21 Range/Units 05:42 Total Bilirubin 0.5 (0.2-1) mg/dl AST 20 (15-37) U/L ALT 36 (12-78) U/L Alkaline Phosphatase 107 (45-117) U/L Albumin 3.0 L (3.4-5.0) gm/dl Medications Administered Current Inpatient Medications Acetaminophen (Acetaminophen 325 Mg Tab) 650 mg PO Q4H PRN PRN Reason: Pain or Fever Stop: 11/09/21 15:14 Amlodipine Besylate (Amlodipine Besylate 5 Mg Tab) 5 mg PO QAM [facility] Stop: 11/10/21 08:59 Last Admin: 10/13/21 09:13 Dose: 5 mg Documented by: Aspirin (Aspirin 81 Mg Ectab) 81 mg PO QAM [facility] Stop: 11/10/21 08:59 Last Admin: 10/13/21 09:13 Dose: 81 mg Documented by: Atorvastatin Calcium (Atorvastatin 40 Mg Tab) 80 mg PO PM [facility] Stop: 11/09/21 20:59 Last Admin: 10/12/21 20:52 Dose: 80 mg Documented by: Benzonatate (Benzonatate 100 Mg Capsule) 100 mg PO TID [facility] Stop: 11/10/21 20:59 Last Admin: 10/13/21 13:04 Dose: 100 mg Documented by: Clopidogrel Bisulfate (Clopidogrel Bisulfate 75 Mg Tab) 75 mg PO QAM [facility] Stop: 11/10/21 08:59 Last Admin: 10/13/21 09:13 Dose: 75 mg Documented by: Dextrose (Dextrose 50% 50 Ml Syringe) 25 - 50 ml IV UD PRN; Protocol PRN Reason: Hypoglycemia Protocol Stop: 11/10/21 15:52 Doxycycline Hyclate (Doxycycline Hyclate 100 Mg Cap) 100 mg PO BID [facility] Stop: 10/17/21 15:34 Last Admin: 10/13/21 09:12 Dose: 100 mg Documented by: Enoxaparin Sodium (Enoxaparin Inj 40 Mg/0.4 Ml Syr) 40 mg SQ Q24H [facility] Stop: 11/10/21 16:44 Last Admin: 10/12/21 20:54 Dose: 40 mg Documented by: Glucagon (Glucagon For Inj 1 Mg Vial) 1 mg SQ UD PRN; Protocol PRN Reason: Hypoglycemia Protocol Stop: 11/10/21 15:52 Glucose (Glucose 10 Tabs/Tube) 4 - 8 tabs PO UD PRN; Protocol PRN Reason: Hypoglycemia Protocol Stop: 11/10/21 15:52 Glucose (Glucose 40% Gel 15 Gm Tube) 15 - 30 gm PO UD PRN; Protocol PRN Reason: Hypoglycemia Protocol Stop: 11/10/21 15:52 Guaifenesin (Guaifenesin 600 Mg Tabcr) 600 mg PO Q12 [facility] Stop: 11/09/21 15:59 Last Admin: 10/13/21 09:12 Dose: 600 mg Documented by: Methylprednisolone 40 mg/ (Syringe) 0.64 mls @ 1.5 mls/min IV Q8H [facility] Stop: 11/10/21 15:59 Last Admin: 10/13/21 09:16 Dose: 1.5 mls/min Documented by: Insulin Aspart (Insulin Aspart 100 Units/Ml 3 Ml Pen) 0 units SC ACHS [facility] Stop: 11/10/21 16:29 Last Admin: 10/13/21 12:05 Dose: Not Given Documented by: Levalbuterol HCl (Levalbuterol Hcl 1.25 Mg/3 Ml Neb) 1.25 mg INH QIDR [facility] Stop: 11/10/21 16:59 Last Admin: 10/13/21 15:02 Dose: 1.25 mg Documented by: Lisinopril (Lisinopril 20 Mg Tab) 20 mg PO QAM [facility] Stop: 11/11/21 08:59 Last Admin: 10/13/21 09:12 Dose: 20 mg Documented by: Metoprolol Succinate (Metoprolol Succ 25mg Ext Rel Tab) 25 mg PO DAILY [facility] Stop: 11/11/21 08:59 Last Admin: 10/13/21 09:13 Dose: 25 mg Documented by: Miscellaneous (Carbohydrates For Hypoglycemia ) 15 - 30 gm PO UD PRN PRN Reason: Hypoglycemia Protocol Stop: 11/10/21 15:52 Ondansetron HCl (Ondansetron Inj 2 Mg/Ml 2 Ml Vial) 4 mg IV Q6H PRN PRN Reason: Nausea Stop: 11/09/21 15:14
[2021-10-13] MEDS: ATORVASTATIN 40 MG TAB PO SCH (20:26)
[2021-10-13] MEDS: ENOXAPARIN INJ 40 MG/0.4 ML SYR SQ SCH (20:27)
[2021-10-14] MEDS: LEVALBUTEROL HCL 1.25 MG/3 ML NEB INH SCH ×4 (07:21→19:41)
[2021-10-14 07:49] LABS: Hematocrit (blood only) 40.3 % (42-52); Hemoglobin 13.4 g/dL (14.0-18.0); Immature Granulocytes # (auto) 0.03 K/uL (0.00-0.02); Immature Granulocytes % (auto) 0.2 %; Lymphocytes # (auto) 0.69 K/uL (1.2-3.4); Lymphocytes % (auto) 5.5 %; Mean Corpuscular Hemoglobin 31.4 pg (25-34); Mean Corpuscular Hgb Conc 33.3 g/dL (32-36); Mean Corpuscular Volume 94.4 fL (80-100); Mean Platelet Volume 10.3 fL (7.4-10.4); Monocytes # (auto) 0.12 K/uL (0.11-0.59); Neutrophils # (auto) 11.69 K/uL (1.4-6.5); Neutrophils % (auto) 93.3 %; Platelet Count 202 K/uL (130-400); RDW Coefficient of Variation 14.3 % (11.5-14.5); Red Blood Count 4.27 M/uL (4.7-6.1); White Blood Count 12.53 K/uL (4.8-10.8)
[2021-10-14] MEDS: DOXYCYCLINE HYCLATE 100 MG CAP PO SCH ×2 (08:00→20:55)
[2021-10-14] MEDS: CLOPIDOGREL BISULFATE 75 MG TAB PO SCH (08:00)
[2021-10-14] MEDS: guaiFENesin 600 MG TABCR PO SCH ×2 (08:00→20:54)
[2021-10-14] MEDS: methylPREDNISolone 40 MG in SYRINGE 0 ML IV SCH ×2 (08:00→17:00)
[2021-10-14] MEDS: BENZONATATE 100 MG CAPSULE PO SCH ×3 (08:00→20:54)
[2021-10-14] MEDS: ASPIRIN 81 MG ECTAB PO SCH (08:01)
[2021-10-14] MEDS: amLODIPine BESYLATE 5 MG TAB PO SCH (08:01)
[2021-10-14] MEDS: METOPROLOL SUCC 25MG EXT REL TAB PO SCH (08:01)
[2021-10-14] MEDS: lisinopril 20 MG TAB PO SCH (08:01)
[2021-10-14] MEDS: INSULIN ASPART 100 UNITS/ML 3 ML PEN SC SCH ×4 (08:02→20:56)
[2021-10-14 08:34] LABS: Albumin Globulin Ratio 0.8 (0.9-2); Albumin Level 3.3 gm/dl (3.4-5.0); BUN Creatinine Ratio 53.5 (10-20); Bilirubin,Total 0.6 mg/dl (0.2-1); Calcium 8.7 mg/dl (8.5-10.1); Creatinine Clr Calc Pharmacy 40.9 ml/min; Est GFR (African American) 46.4 ml/min; Est GFR (Non-African American) 40.1 ml/min; Globulin 4.1 gm/dl (2.5-4.0); Total Protein 7.4 gm/dl (6.4-8.2)
[2021-10-14 11:00] LABS: Potassium 4.2 mmol/L (3.5-5.1)
[2021-10-14 11:05] LABS: Magnesium 2.5 mg/dl (1.8-2.4)
--- NOTE | 2021-10-14 16:31 | Hospitalist Progress Note ---
Date of Service October 14, 2021 Assessment & Plan (1) Acute respiratory failure with hypoxia: Plan: Currently requireing 8LPM via Oxymask likely from complicated infectious bronchitis. Condition has been deteriorating and he has been requiring up to 15 L of oxygen to maintain saturation CTA did not show any pulmonary embolism or any other significant abnormalities Clinically better today and has been requiring less oxygen to maintain saturation We will continue current management Clinically better but not yet ready to be discharged (2) Acute bronchitis: Plan: Improved with treatment so far this admission but still wheezing and coughing and with persistent hypoxia. No evidence of pneumonia or pulmonary edema. With his level of hypoxia and wheezing will continue scheduled IV steroids now, schedule nebulized bronchodilators and schedule Tessalon Perles. Mucinex is also scheduled. We will continue current management (3) Moderate aortic stenosis: Plan: Known history of valve disease, per cardiology. No chest pain and/or palpitation Echo of the heart showed-normal LV chamber size with mild concentric LVH, mildly reduced LV systolic function with EF 40 to 45%, moderate sized apical, posterior and anterolateral wall motion abnormalities, hypokinesis to akinesis of the segments, mild to moderate hypokinesis of the septal and apical brasher, grade 1 diastolic dysfunction, moderately calcified trileaflet aortic valve with moderate aortic stenosis with mild to aortic regurgitation, mild MR and no significant change compared with prior study of 05/14/2021 We will continue current management No CHF (4) HTN (hypertension) with goal to be determined: Plan: Blood pressure at goal, restarted lisinopril at 50% dose. (5) CKD (chronic kidney disease), stage III: Plan: Chronic, stable, creatinine at baseline. (6) CAD (coronary artery disease): Plan: Chronic, appears stable, no chest pain. Troponin was negative on admission. Continue medical management Denies any cardiac symptoms of pain and/or palpitation (7) Ischemic cardiomyopathy: Plan: Known history of ischemic cardiomyopathy with reduced EF to 45% per echo in June 2021. Borderline severe aortic stenosis. Continues on metoprolol succinate, Plavix 75, aspirin 81 Repeat echo has been noted (8) DVT prophylaxis: Plan: Lovenox Full Dispo-PCU Admission and Anticipated Discharge Date Admission Date: October 10, 2021 Subjective 10/12/2021 The patient was seen and examined in telemetry unit He remains very short of breath and has been requiring up to 15 L of oxygen via oxygen mask to maintain saturation Denies any chest pain and/or palpitation Has cough without any significant phlegm and/or hemoptysis 10/13/2021 The patient was seen and examined in telemetry unit He has been feeling much better and oxygen requirement has gone down to 10 L/min to maintain saturation He denies any chest pain or palpitation, any abdominal pain nausea and or vomiting 10/14/2021 The patient was seen and examined in telemetry unit He remains stable but he still requires about 7 L of oxygen to maintain saturation He denies any chest pain or palpitation Review of Systems Review of Systems: All systems reviewed and are unremarkable except as noted below Respiratory: Acute shortness of breath with use of accessory muscles to breath Cardiovascular: Additional Comments: No chest pain and/or palpitation Physical Exam Physical Exam: Sitting at the edge of the bed with acute distress secondary to shortness of breath Constitutional: well developed, well nourished, + ill appearing and + obese Eyes: PERRL, conjunctivae normal, anicteric sclerae ENMT: external ear and nose normal, oropharynx normal Neck: trachea midline, no thyromegaly Respiratory: + respiratory distress, + labored breathing and + cough Auscultation: + diminished lung sounds, + crackles and + wheezes Cardiovascular: Rate/Rhythm: regular rate and regular rhythm; not tachycardic Heart Sounds: normal S1, normal S2 and + murmur (2/6 ESM over precordium) Extremities: + edema (Trace to 1+ edema bilaterally) Gastrointestinal (Abdomen): Inspection/Auscultation: normal bowel sounds; abdomen not distended Percussion/Palpation: abdomen soft; abdomen nontender Musculoskeletal: No acute arthritis in any joint Psychiatric: A+Ox3, euthymic affect Lymphatic: no cervical or axillary lymphadenopathy Results & Data Results & Data ([facility]) Vital Signs (Past 12 Hours) Vital Signs Temp Pulse Pulse Resp BP Pulse Ox 10/14/21 14:13 65 22 93 10/14/21 11:26 67 18 97 10/14/21 11:00 36.4 C L 56 L 18 127/72 94 10/14/21 10:01 52 L 10/14/21 07:30 36.9 C 75 20 109/62 96 10/14/21 07:21 73 18 95 Laboratory Results Short CBC 10/14/21 Range/Units 07:31 WBC 12.53 H (4.8-10.8) K/uL Hgb 13.4 L (14.0-18.0) g/dL Hct 40.3 L (42-52) % Plt Count 202 (130-400) K/uL BMP 10/14/21 10/14/21 10/14/21 07:31 08:54 09:30 Sodium 138 Potassium Cancelled Cancelled Chloride 105 Carbon Dioxide 24 BUN 87 H Creatinine 1.62 H Glucose 136 H Calcium 8.7 10/14/21 10:36 Sodium Potassium 4.2 Chloride Carbon Dioxide BUN Creatinine Glucose Calcium Liver Function 10/14/21 10/14/21 10/14/21 Range/Units 07:31 08:54 09:30 Total Bilirubin 0.6 (0.2-1) mg/dl AST Cancelled Cancelled (15-37) U/L ALT 54 (12-78) U/L Alkaline Phosphatase 105 (45-117) U/L Albumin 3.3 L (3.4-5.0) gm/dl 10/14/21 Range/Units 10:36 Total Bilirubin (0.2-1) mg/dl AST 31 (15-37) U/L ALT (12-78) U/L Alkaline Phosphatase (45-117) U/L Albumin (3.4-5.0) gm/dl Medications Administered Current Inpatient Medications Acetaminophen (Acetaminophen 325 Mg Tab) 650 mg PO Q4H PRN PRN Reason: Pain or Fever Stop: 11/09/21 15:14 Amlodipine Besylate (Amlodipine Besylate 5 Mg Tab) [facility] [place] Stop: 11/10/21 08:59 Last Admin: 10/14/21 08:01 Dose: 5 mg Documented by: Aspirin (Aspirin 81 Mg Ectab) 81 mg PO QAM [facility] Stop: 11/10/21 08:59 Last Admin: 10/14/21 08:01 Dose: 81 mg Documented by: Atorvastatin Calcium (Atorvastatin 40 Mg Tab) 80 mg PO PM [facility] Stop: 11/09/21 20:59 Last Admin: 10/13/21 20:26 Dose: 80 mg Documented by: Benzonatate (Benzonatate 100 Mg Capsule) 100 mg PO TID [facility] Stop: 11/10/21 20:59 Last Admin: 10/14/21 14:51 Dose: 100 mg Documented by: Clopidogrel Bisulfate (Clopidogrel Bisulfate 75 Mg Tab) 75 mg PO QAM [facility] Stop: 11/10/21 08:59 Last Admin: 10/14/21 08:00 Dose: 75 mg Documented by: Dextrose (Dextrose 50% 50 Ml Syringe) 25 - 50 ml IV UD PRN; Protocol PRN Reason: Hypoglycemia Protocol Stop: 11/10/21 15:52 Doxycycline Hyclate (Doxycycline Hyclate 100 Mg Cap) 100 mg PO BID [facility] Stop: 10/17/21 15:34 Last Admin: 10/14/21 08:00 Dose: 100 mg Documented by: Enoxaparin Sodium (Enoxaparin Inj 40 Mg/0.4 Ml Syr) 40 mg SQ Q24H [facility] Stop: 11/10/21 16:44 Last Admin: 10/13/21 20:27 Dose: 40 mg Documented by: Glucagon (Glucagon For Inj 1 Mg Vial) 1 mg SQ UD PRN; Protocol PRN Reason: Hypoglycemia Protocol Stop: 11/10/21 15:52 Glucose (Glucose 10 Tabs/Tube) 4 - 8 tabs PO UD PRN; Protocol PRN Reason: Hypoglycemia Protocol Stop: 11/10/21 15:52 Glucose (Glucose 40% Gel 15 Gm Tube) 15 - 30 gm PO UD PRN; Protocol PRN Reason: Hypoglycemia Protocol Stop: 11/10/21 15:52 Guaifenesin (Guaifenesin 600 Mg Tabcr) 600 mg PO Q12 [facility] Stop: 11/09/21 15:59 Last Admin: 10/14/21 08:00 Dose: 600 mg Documented by: Methylprednisolone 40 mg/ (Syringe) 0.64 mls @ 1.5 mls/min IV Q8H [facility] Stop: 11/10/21 15:59 Last Admin: 10/14/21 08:00 Dose: 1.5 mls/min Documented by: Insulin Aspart (Insulin Aspart 100 Units/Ml 3 Ml Pen) 0 units SC ACHS [facility] Stop: 11/10/21 16:29 Last Admin: 10/14/21 12:04 Dose: Not Given Documented by: Levalbuterol HCl (Levalbuterol Hcl 1.25 Mg/3 Ml Neb) 1.25 mg INH QIDR [facility] Stop: 11/10/21 16:59 Last Admin: 10/14/21 14:13 Dose: 1.25 mg Documented by: Lisinopril (Lisinopril 20 Mg Tab) 20 mg PO QAM [facility] Stop: 11/11/21 08:59 Last Admin: 10/14/21 08:01 Dose: 20 mg Documented by: Metoprolol Succinate (Metoprolol Succ 25mg Ext Rel Tab) 25 mg PO DAILY [facility] Stop: 11/11/21 08:59 Last Admin: 10/14/21 08:01 Dose: 25 mg Documented by: Miscellaneous (Carbohydrates For Hypoglycemia ) 15 - 30 gm PO UD PRN PRN Reason: Hypoglycemia Protocol Stop: 11/10/21 15:52 Ondansetron HCl (Ondansetron Inj 2 Mg/Ml 2 Ml Vial) 4 mg IV Q6H PRN PRN Reason: Nausea Stop: 11/09/21 15:14
[2021-10-14] MEDS: ENOXAPARIN INJ 40 MG/0.4 ML SYR SQ SCH (20:53)
[2021-10-14] MEDS: ATORVASTATIN 40 MG TAB PO SCH (20:55)
[2021-10-15] MEDS: methylPREDNISolone 40 MG in SYRINGE 0 ML IV SCH ×4 (00:15→23:41)
[2021-10-15] MEDS: LEVALBUTEROL HCL 1.25 MG/3 ML NEB INH SCH ×4 (05:59→19:35)
[2021-10-15] MEDS: DOXYCYCLINE HYCLATE 100 MG CAP PO SCH ×2 (08:11→20:20)
[2021-10-15] MEDS: METOPROLOL SUCC 25MG EXT REL TAB PO SCH (08:11)
[2021-10-15] MEDS: BENZONATATE 100 MG CAPSULE PO SCH ×3 (08:11→20:20)
[2021-10-15] MEDS: ASPIRIN 81 MG ECTAB PO SCH (08:11)
[2021-10-15] MEDS: CLOPIDOGREL BISULFATE 75 MG TAB PO SCH (08:11)
[2021-10-15] MEDS: guaiFENesin 600 MG TABCR PO SCH ×2 (08:11→20:20)
[2021-10-15] MEDS: lisinopril 20 MG TAB PO SCH (08:11)
[2021-10-15] MEDS: amLODIPine BESYLATE 5 MG TAB PO SCH (08:11)
[2021-10-15] MEDS: INSULIN ASPART 100 UNITS/ML 3 ML PEN SC SCH ×4 (08:12→20:57)
[2021-10-15] MEDS ORDERED: FUROSEMIDE 40 MG/4 ML VIAL IV ONE (09:20)
[2021-10-15] MEDS ORDERED: FUROSEMIDE INJ 20 MG/2 ML VIAL IV ONE (09:22)
[2021-10-15] MEDS: FLUTICASONE/VILANTEROL 200/25MCG 14 PUFFS/INHALER INH SCH (10:40)
--- NOTE | 2021-10-15 15:20 | Hospitalist Progress Note ---
Date of Service October 15, 2021 Assessment & Plan (1) Acute respiratory failure with hypoxia: Plan: Currently requireing 8LPM via Oxymask likely from complicated infectious bronchitis. Condition has been deteriorating and he has been requiring up to 15 L of oxygen to maintain saturation CTA did not show any pulmonary embolism or any other significant abnormalities Clinically better today and has been requiring less oxygen to maintain saturation We will continue current management Clinically better but not yet ready to be discharged Still requiring very high flow oxygen up to 6 L to maintain saturation We will try a small dose of Lasix to see if that helps his shortness of breath We will get her to a stable O2 saturation before discharging tomorrow (2) Acute bronchitis: Plan: Improved with treatment so far this admission but still wheezing and coughing and with persistent hypoxia. No evidence of pneumonia or pulmonary edema. With his level of hypoxia and wheezing will continue scheduled IV steroids now, schedule nebulized bronchodilators and schedule Tessalon Perles. Mucinex is also scheduled. We will continue current management We will add steroid with long-acting beta-radha inhaler to see if the improvement (3) Moderate aortic stenosis: Plan: Known history of valve disease, per cardiology. No chest pain and/or palpitation Echo of the heart showed-normal LV chamber size with mild concentric LVH, mildly reduced LV systolic function with EF 40 to 45%, moderate sized apical, posterior and anterolateral wall motion abnormalities, hypokinesis to akinesis of the segments, mild to moderate hypokinesis of the septal and apical brasher, grade 1 diastolic dysfunction, moderately calcified trileaflet aortic valve with moderate aortic stenosis with mild to aortic regurgitation, mild MR and no significant change compared with prior study of 05/14/2021 We will continue current management No CHF (4) HTN (hypertension) with goal to be determined: Plan: Blood pressure at goal, restarted lisinopril at 50% dose. (5) CKD (chronic kidney disease), stage III: Plan: Chronic, stable, creatinine at baseline. (6) CAD (coronary artery disease): Plan: Chronic, appears stable, no chest pain. Troponin was negative on admission. Continue medical management Denies any cardiac symptoms of pain and/or palpitation (7) Ischemic cardiomyopathy: Plan: Known history of ischemic cardiomyopathy with reduced EF to 45% per echo in June 2021. Borderline severe aortic stenosis. Continues on metoprolol succinate, Plavix 75, aspirin 81 Repeat echo has been noted (8) DVT prophylaxis: Plan: Lovenox Full Dispo-PCU Admission and Anticipated Discharge Date Admission Date: October 10, 2021 Subjective 10/12/2021 The patient was seen and examined in telemetry unit He remains very short of breath and has been requiring up to 15 L of oxygen via oxygen mask to maintain saturation Denies any chest pain and/or palpitation Has cough without any significant phlegm and/or hemoptysis 10/13/2021 The patient was seen and examined in telemetry unit He has been feeling much better and oxygen requirement has gone down to 10 L/min to maintain saturation He denies any chest pain or palpitation, any abdominal pain nausea and or vomiting 10/14/2021 The patient was seen and examined in telemetry unit He remains stable but he still requires about 7 L of oxygen to maintain saturation He denies any chest pain or palpitation 10/15/2021 The patient was seen and examined in telemetry unit He wants to go home but unfortunately remains shortness of breath at rest and requiring up to 6 L of oxygen to maintain saturation No matter how it happens, he will leave the hospital tomorrow Review of Systems Review of Systems: All systems reviewed and are unremarkable except as noted below Respiratory: Acute shortness of breath with use of accessory muscles to breath Cardiovascular: Additional Comments: No chest pain and/or palpitation Physical Exam Physical Exam: Sitting at the edge of the bed with acute distress secondary to shortness of breath Constitutional: well developed, well nourished, + ill appearing and + obese Eyes: PERRL, conjunctivae normal, anicteric sclerae ENMT: external ear and nose normal, oropharynx normal Neck: trachea midline, no thyromegaly Respiratory: + respiratory distress, + labored breathing and + cough Auscultation: + diminished lung sounds, + crackles and + wheezes Cardiovascular: Rate/Rhythm: regular rate and regular rhythm; not tachycardic Heart Sounds: normal S1, normal S2 and + murmur (2/6 ESM over precordium) Extremities: + edema (Trace to 1+ edema bilaterally) Gastrointestinal (Abdomen): Inspection/Auscultation: normal bowel sounds; abdomen not distended Percussion/Palpation: abdomen soft; abdomen nontender Musculoskeletal: No acute arthritis in any joint Psychiatric: A+Ox3, euthymic affect Lymphatic: no cervical or axillary lymphadenopathy Results & Data Results & Data ([facility]) Vital Signs (Past 12 Hours) Vital Signs Temp Pulse Pulse Resp BP Pulse Ox 10/15/21 14:43 74 18 90 10/15/21 10:55 36.6 C 74 17 126/75 90 10/15/21 10:25 70 16 95 10/15/21 09:35 65 10/15/21 07:06 36.4 C L 70 18 114/70 92 10/15/21 05:59 79 18 93 Medications Administered Current Inpatient Medications Acetaminophen (Acetaminophen 325 Mg Tab) 650 mg PO Q4H PRN PRN Reason: Pain or Fever Stop: 11/09/21 15:14 Amlodipine Besylate (Amlodipine Besylate 5 Mg Tab) 5 mg PO QAM [facility] Stop: 11/10/21 08:59 Last Admin: 10/15/21 08:11 Dose: 5 mg Documented by: Aspirin (Aspirin 81 Mg Ectab) 81 mg PO QAM [facility] Stop: 11/10/21 08:59 Last Admin: 10/15/21 08:11 Dose: 81 mg Documented by: Atorvastatin Calcium (Atorvastatin 40 Mg Tab) 80 mg PO PM [facility] Stop: 11/09/21 20:59 Last Admin: 10/14/21 20:55 Dose: 80 mg Documented by: Benzonatate (Benzonatate 100 Mg Capsule) 100 mg PO TID [facility] Stop: 11/10/21 20:59 Last Admin: 10/15/21 15:01 Dose: 100 mg Documented by: Clopidogrel Bisulfate (Clopidogrel Bisulfate 75 Mg Tab) 75 mg PO QAM [facility] Stop: 11/10/21 08:59 Last Admin: 10/15/21 08:11 Dose: 75 mg Documented by: Dextrose (Dextrose 50% 50 Ml Syringe) 25 - 50 ml IV UD PRN; Protocol PRN Reason: Hypoglycemia Protocol Stop: 11/10/21 15:52 Doxycycline Hyclate (Doxycycline Hyclate 100 Mg Cap) 100 mg PO BID [facility] Stop: 10/17/21 15:34 Last Admin: 10/15/21 08:11 Dose: 100 mg Documented by: Enoxaparin Sodium (Enoxaparin Inj 40 Mg/0.4 Ml Syr) 40 mg SQ Q24H [facility] Stop: 11/10/21 16:44 Last Admin: 10/14/21 20:53 Dose: 40 mg Documented by: Fluticasone/Vilanterol (Fluticasone/Vilanterol 200/25mcg 14 Puffs/Inhaler) 1 puffs INH DAILY [facility] Stop: 11/14/21 09:29 Last Admin: 10/15/21 10:40 Dose: 1 puffs Documented by: Glucagon (Glucagon For Inj 1 Mg Vial) 1 mg SQ UD PRN; Protocol PRN Reason: Hypoglycemia Protocol Stop: 11/10/21 15:52 Glucose (Glucose 10 Tabs/Tube) 4 - 8 tabs PO UD PRN; Protocol PRN Reason: Hypoglycemia Protocol Stop: 11/10/21 15:52 Glucose (Glucose 40% Gel 15 Gm Tube) 15 - 30 gm PO UD PRN; Protocol PRN Reason: Hypoglycemia Protocol Stop: 11/10/21 15:52 Guaifenesin (Guaifenesin 600 Mg Tabcr) 600 mg PO Q12 [facility] Stop: 11/09/21 15:59 Last Admin: 10/15/21 08:11 Dose: 600 mg Documented by: Methylprednisolone 40 mg/ (Syringe) 0.64 mls @ 1.5 mls/min IV Q8H [facility] Stop: 11/10/21 15:59 Last Admin: 10/15/21 08:10 Dose: 1.5 mls/min Documented by: Insulin Aspart (Insulin Aspart 100 Units/Ml 3 Ml Pen) 0 units SC ACHS [facility] Stop: 11/10/21 16:29 Last Admin: 10/15/21 11:52 Dose: 2 units Documented by: Levalbuterol HCl (Levalbuterol Hcl 1.25 Mg/3 Ml Neb) 1.25 mg INH QIDR [facility] Stop: 11/10/21 16:59 Last Admin: 10/15/21 14:43 Dose: 1.25 mg Documented by: Lisinopril (Lisinopril 20 Mg Tab) 20 mg PO QAM [facility] Stop: 11/11/21 08:59 Last Admin: 10/15/21 08:11 Dose: 20 mg Documented by: Metoprolol Succinate (Metoprolol Succ 25mg Ext Rel Tab) 25 mg PO DAILY [facility] Stop: 11/11/21 08:59 Last Admin: 10/15/21 08:11 Dose: 25 mg Documented by: Miscellaneous (Carbohydrates For Hypoglycemia ) 15 - 30 gm PO UD PRN PRN Reason: Hypoglycemia Protocol Stop: 11/10/21 15:52 Ondansetron HCl (Ondansetron Inj 2 Mg/Ml 2 Ml Vial) 4 mg IV Q6H PRN PRN Reason: Nausea Stop: 11/09/21 15:14
[2021-10-15] MEDS: ATORVASTATIN 40 MG TAB PO SCH (20:19)
[2021-10-15] MEDS: ENOXAPARIN INJ 40 MG/0.4 ML SYR SQ SCH (20:20)
[2021-10-16] MEDS: LEVALBUTEROL HCL 1.25 MG/3 ML NEB INH SCH (07:21)
[2021-10-16] MEDS: lisinopril 20 MG TAB PO SCH (08:09)
[2021-10-16] MEDS: CLOPIDOGREL BISULFATE 75 MG TAB PO SCH (08:09)
[2021-10-16] MEDS: ASPIRIN 81 MG ECTAB PO SCH (08:09)
[2021-10-16] MEDS: methylPREDNISolone 40 MG in SYRINGE 0 ML IV SCH (08:09)
[2021-10-16] MEDS: guaiFENesin 600 MG TABCR PO SCH (08:09)
[2021-10-16] MEDS: amLODIPine BESYLATE 5 MG TAB PO SCH (08:09)
[2021-10-16] MEDS: DOXYCYCLINE HYCLATE 100 MG CAP PO SCH (08:09)
[2021-10-16] MEDS: BENZONATATE 100 MG CAPSULE PO SCH ×2 (08:09→14:03)
[2021-10-16] MEDS: METOPROLOL SUCC 25MG EXT REL TAB PO SCH (08:09)
[2021-10-16] MEDS: FLUTICASONE/VILANTEROL 200/25MCG 14 PUFFS/INHALER INH SCH (08:10)
[2021-10-16] MEDS: INSULIN ASPART 100 UNITS/ML 3 ML PEN SC SCH ×2 (08:19→12:15)
[2021-10-16] MEDS ORDERED: LEVALBUTEROL HCL 1.25 MG/3 ML NEB INH PRN (10:36)
--- NOTE | 2021-10-16 11:47 | Hospitalist Progress Note ---
Date of Service October 16, 2021 Assessment & Plan (1) Acute respiratory failure with hypoxia: Plan: Currently requireing 8LPM via Oxymask likely from complicated infectious bronchitis. Condition has been deteriorating and he has been requiring up to 15 L of oxygen to maintain saturation CTA did not show any pulmonary embolism or any other significant abnormalities Clinically better today and has been requiring less oxygen to maintain saturation We will continue current management Clinically better but not yet ready to be discharged Still requiring very high flow oxygen up to 6 L to maintain saturation We will try a small dose of Lasix to see if that helps his shortness of breath We will get her to a stable O2 saturation before discharging tomorrow Has had 2 step O2 saturation test and he will need 2 L of oxygen at rest and 4 L with ambulation He will be discharged home this afternoon (2) Acute bronchitis: Plan: Improved with treatment so far this admission but still wheezing and coughing and with persistent hypoxia. No evidence of pneumonia or pulmonary edema. With his level of hypoxia and wheezing will continue scheduled IV steroids now, schedule nebulized bronchodilators and schedule Tessalon Perles. Mucinex is also scheduled. We will continue current management We will add steroid with long-acting beta-radha inhaler to see if the improvement He will need an outpatient pulmonary follow-up (3) Moderate aortic stenosis: Plan: Known history of valve disease, per cardiology. No chest pain and/or palpitation Echo of the heart showed-normal LV chamber size with mild concentric LVH, mildly reduced LV systolic function with EF 40 to 45%, moderate sized apical, posterior and anterolateral wall motion abnormalities, hypokinesis to akinesis of the segments, mild to moderate hypokinesis of the septal and apical brasher, grade 1 diastolic dysfunction, moderately calcified trileaflet aortic valve with moderate aortic stenosis with mild to aortic regurgitation, mild MR and no significant change compared with prior study of 05/14/2021 We will continue current management No CHF (4) HTN (hypertension) with goal to be determined: Plan: Blood pressure at goal, restarted lisinopril at 50% dose. (5) CKD (chronic kidney disease), stage III: Plan: Chronic, stable, creatinine at baseline. (6) CAD (coronary artery disease): Plan: Chronic, appears stable, no chest pain. Troponin was negative on admission. Continue medical management Denies any cardiac symptoms of pain and/or palpitation (7) Ischemic cardiomyopathy: Plan: Known history of ischemic cardiomyopathy with reduced EF to 45% per echo in June 2021. Borderline severe aortic stenosis. Continues on metoprolol succinate, Plavix 75, aspirin 81 Repeat echo has been noted Denies any cardiac symptoms (8) DVT prophylaxis: Plan: Lovenox Full Dispo-PCU Admission and Anticipated Discharge Date Admission Date: October 10, 2021 Subjective 10/12/2021 The patient was seen and examined in telemetry unit He remains very short of breath and has been requiring up to 15 L of oxygen via oxygen mask to maintain saturation Denies any chest pain and/or palpitation Has cough without any significant phlegm and/or hemoptysis 10/13/2021 The patient was seen and examined in telemetry unit He has been feeling much better and oxygen requirement has gone down to 10 L/min to maintain saturation He denies any chest pain or palpitation, any abdominal pain nausea and or vomiting 10/14/2021 The patient was seen and examined in telemetry unit He remains stable but he still requires about 7 L of oxygen to maintain saturation He denies any chest pain or palpitation 10/15/2021 The patient was seen and examined in telemetry unit He wants to go home but unfortunately remains shortness of breath at rest and requiring up to 6 L of oxygen to maintain saturation No matter how it happens, he will leave the hospital tomorrow 10/16/2021 The patient was seen and examined in telemetry unit He has been feeling much better and denies any symptoms at rest He has had 2 step O2 saturation test and he will need 2 L at rest and 4 L with exertion He will be discharged home this afternoon Review of Systems Review of Systems: All systems reviewed and are unremarkable except as noted below Respiratory: Acute shortness of breath with use of accessory muscles to breath-has improved a lot Cardiovascular: Additional Comments: No chest pain and/or palpitation Physical Exam Physical Exam: Sitting at the edge of the bed with minimal distress secondary to shortness of breath Constitutional: well developed, well nourished, + ill appearing and + obese Eyes: PERRL, conjunctivae normal, anicteric sclerae ENMT: external ear and nose normal, oropharynx normal Neck: trachea midline, no thyromegaly Respiratory: + respiratory distress, + labored breathing and + cough Auscultation: + diminished lung sounds and + wheezes; no crackles Cardiovascular: Rate/Rhythm: regular rate and regular rhythm; not tachycardic Heart Sounds: normal S1, normal S2 and + murmur (2/6 ESM over precordium) Extremities: + edema (Trace to 1+ edema bilaterally) Gastrointestinal (Abdomen): Inspection/Auscultation: normal bowel sounds; abdomen not distended Percussion/Palpation: abdomen soft; abdomen nontender Musculoskeletal: No acute arthritis in any joint Neurologic: Alert, awake and oriented x3. No focal sensory and motor deficit appreciated Psychiatric: A+Ox3, euthymic affect Lymphatic: no cervical or axillary lymphadenopathy Results & Data Results & Data ([facility]) Vital Signs (Past 12 Hours) Vital Signs Temp Pulse Pulse Pulse Pulse Pulse Pulse 10/16/21 08:40 73 93 H 97 H 91 H 10/16/21 08:04 36.5 C 76 10/16/21 08:00 49 L 10/16/21 07:22 71 10/16/21 03:55 36.5 C 61 10/16/21 01:28 77 Pulse Pulse Resp Resp Resp Resp Resp 10/16/21 08:40 77 77 16 18 18 18 10/16/21 08:04 20 10/16/21 08:00 10/16/21 07:22 15 10/16/21 03:55 24 10/16/21 01:28 Resp Resp BP BP Pulse Ox Pulse Ox Pulse Ox 10/16/21 08:40 18 16 91 86 L 10/16/21 08:04 115/70 94 10/16/21 08:00 10/16/21 07:22 92 10/16/21 03:55 118/70 91 10/16/21 01:28 Pulse Ox Pulse Ox Pulse Ox Pulse Ox 10/16/21 08:40 91 85 L 92 87 L 10/16/21 08:04 10/16/21 08:00 10/16/21 07:22 10/16/21 03:55 10/16/21 01:28 Medications Administered Current Inpatient Medications Acetaminophen (Acetaminophen 325 Mg Tab) 650 mg PO Q4H PRN PRN Reason: Pain or Fever Stop: 11/09/21 15:14 Amlodipine Besylate (Amlodipine Besylate 5 Mg Tab) [facility] Stop: 11/10/21 08:59 Last Admin: 10/16/21 08:09 Dose: 5 mg Documented by: Aspirin (Aspirin 81 Mg Ectab) 81 mg PO QAM OPAL Stop: 11/10/21 08:59 Last Admin: 10/16/21 08:09 Dose: 81 mg Documented by: Atorvastatin Calcium (Atorvastatin 40 Mg Tab) 80 mg PO PM COUNTS INCLUDE 234 BEDS AT THE [facility] Stop: 11/09/21 20:59 Last Admin: 10/15/21 20:19 Dose: 80 mg Documented by: Benzonatate (Benzonatate 100 Mg Capsule) 100 mg PO TID OPAL Stop: 11/10/21 20:59 Last Admin: 10/16/21 08:09 Dose: 100 mg Documented by: Clopidogrel Bisulfate (Clopidogrel Bisulfate 75 Mg Tab) 75 mg PO QAM COUNTS INCLUDE 234 BEDS AT THE [facility] Stop: 11/10/21 08:59 Last Admin: 10/16/21 08:09 Dose: 75 mg Documented by: Dextrose (Dextrose 50% 50 Ml Syringe) 25 - 50 ml IV UD PRN; Protocol PRN Reason: Hypoglycemia Protocol Stop: 11/10/21 15:52 Doxycycline Hyclate (Doxycycline Hyclate 100 Mg Cap) 100 mg PO BID OPAL Stop: 10/17/21 15:34 Last Admin: 10/16/21 08:09 Dose: 100 mg Documented by: Enoxaparin Sodium (Enoxaparin Inj 40 Mg/0.4 Ml Syr) 40 mg SQ Q24H COUNTS INCLUDE 234 BEDS AT THE [facility] Stop: 11/10/21 16:44 Last Admin: 10/15/21 20:20 Dose: 40 mg Documented by: Fluticasone/Vilanterol (Fluticasone/Vilanterol 200/25mcg 14 Puffs/Inhaler) 1 puffs INH DAILY OPAL Stop: 11/14/21 09:29 Last Admin: 10/16/21 08:10 Dose: 1 puffs Documented by: Glucagon (Glucagon For Inj 1 Mg Vial) 1 mg SQ UD PRN; Protocol PRN Reason: Hypoglycemia Protocol Stop: 11/10/21 15:52 Glucose (Glucose 10 Tabs/Tube) 4 - 8 tabs PO UD PRN; Protocol PRN Reason: Hypoglycemia Protocol Stop: 11/10/21 15:52 Glucose (Glucose 40% Gel 15 Gm Tube) 15 - 30 gm PO UD PRN; Protocol PRN Reason: Hypoglycemia Protocol Stop: 11/10/21 15:52 Guaifenesin (Guaifenesin 600 Mg Tabcr) 600 mg PO Q12 COUNTS INCLUDE 234 BEDS AT THE [facility] Stop: 11/09/21 15:59 Last Admin: 10/16/21 08:09 Dose: 600 mg Documented by: Methylprednisolone 40 mg/ (Syringe) 0.64 mls @ 1.5 mls/min IV Q8H OPAL Stop: 11/10/21 15:59 Last Admin: 10/16/21 08:09 Dose: 1.5 mls/min Documented by: Insulin Aspart (Insulin Aspart 100 Units/Ml 3 Ml Pen) 0 units SC ACHS COUNTS INCLUDE 234 BEDS AT THE [facility] Stop: 11/10/21 16:29 Last Admin: 10/16/21 08:19 Dose: Not Given Documented by: Levalbuterol HCl (Levalbuterol Hcl 1.25 Mg/3 Ml Neb) 1.25 mg INH QIDR PRN PRN Reason: Shortness Of Breath Or Wheezing Stop: 11/10/21 16:59 Lisinopril (Lisinopril 20 Mg Tab) 20 mg PO QAM OPAL Stop: 11/11/21 08:59 Last Admin: 10/16/21 08:09 Dose: 20 mg Documented by: Metoprolol Succinate (Metoprolol Succ 25mg Ext Rel Tab) 25 mg PO DAILY COUNTS INCLUDE 234 BEDS AT THE [facility] Stop: 11/11/21 08:59 Last Admin: 10/16/21 08:09 Dose: 25 mg Documented by: Miscellaneous (Carbohydrates For Hypoglycemia ) 15 - 30 gm PO UD PRN PRN Reason: Hypoglycemia Protocol Stop: 11/10/21 15:52 Ondansetron HCl (Ondansetron Inj 2 Mg/Ml 2 Ml Vial) 4 mg IV Q6H PRN PRN Reason: Nausea Stop: 11/09/21 15:14
[2021-10-16 12:12] VITALS: BP 120/53; PULSE 61; TEMP 97.9; O2SAT 95
--- NOTE | 2021-10-16 17:07 | Discharge Summary ---
Date of Service October 16, 2021 Admission HPI Per Admitting Provider 80 year old male with history of CAD, Ischemic Cardiomyopathy EF 45%, Moderate Aortic Stenosis, HTN, CKD 3, presenting with chest congestion, cough x 1 week. Patient seen with his at bedside. Patient was at his baseline state of health until 1 week ago when he started to have nasal congestion, runny nose with clear discharge and cough. No fever/chills, nausea/vomiting, headache, arthralgias/myalgias, diarrhea. Appetite has been good. He has been prescribed with Coricidin and Robitussin by his PCP with no relief of symptoms. At the ER, patient was received with O2 of 87%. Covid test negative, D dimer normal. CXR no signs of infiltrates, edema. He was given Lasix 40mg IV and Levalbuterol neb at the ER. On exam, patient seen sitting up in bed, comfortable, not in distress, on 2 L NC. He is alert, pleasant. States he feels improved after neb treatment but not yet at basline. No other symptoms. Admission Exam Per Admitting Provider Physical Exam: General- oriented x 3, not in distress, speaks in sentences with no effort or accessory muscle use Head- atraumatic Eyes- PERRL, EOMI, anicteric ENT- oropharynx clear Neck- supple, no JVD, no adenopathy, no thyromegaly; carotids +2/2, no bruits appreciated Lungs- (+) rhonchi bilaterally no wheezing good air entry bilaterally Heart- normal rate, regular rhythm; (+) grade 3/6 murmur, no gallop, no rub appreciated Abdomen- normal bowel sounds, nondistended, soft, nontender, no masses or hepatosplenomegaly Extremities- trace pretibial edema, no calf tenderness; peripheral pulses intact Neuro- alert, oriented x 3; CN 2-12 grossly intact; motor 5/5 bilaterally;sensation 100% on all extremities; no other gross focal neurologic deficits Skin- warm & dry Principal Diagnosis Acute hypoxic respiratory failure, acute bronchitis, ischemic cardiomyopathy with EF of 40 to 45%, CAD, CKD Discharge Exam Sitting at the edge of the bed with minimal distress secondary to shortness of breath Constitutional well developed, well nourished, + ill appearing and + obese Eyes PERRL, conjunctivae normal, anicteric sclerae ENMT external ear and nose normal, oropharynx normal Neck trachea midline, no thyromegaly Respiratory + respiratory distress, + labored breathing and + cough Auscultation: + diminished lung sounds and + wheezes; no crackles Cardiovascular Rate/Rhythm: regular rate and regular rhythm; not tachycardic Heart Sounds: normal S1, normal S2 and + murmur (2/6 ESM over precordium) Extremities: + edema (Trace to 1+ edema bilaterally) Gastrointestinal (Abdomen) Inspection/Auscultation: normal bowel sounds; abdomen not distended Percussion/Palpation: abdomen soft; abdomen nontender Psychiatric A+Ox3, euthymic affect Lymphatic no cervical or axillary lymphadenopathy Discharge Data Allergies Allergy/AdvReac Type Severity Reaction Status Date / Time No Known Allergies Allergy Unknown Unverified 10/10/21 13:31 Consultations 10/10/21 13:03 ED Decision to Admit Stat Ordered Studies 10/12/21 14:01 CT angio chest PE protocol Routine Hospital Course (1) Acute respiratory failure with hypoxia: Currently requireing 8LPM via Oxymask likely from complicated infectious bronchitis. Condition has been deteriorating and he has been requiring up to 15 L of oxygen to maintain saturation CTA did not show any pulmonary embolism or any other significant abnormalities Clinically better today and has been requiring less oxygen to maintain saturation We will continue current management Clinically better but not yet ready to be discharged Still requiring very high flow oxygen up to 6 L to maintain saturation We will try a small dose of Lasix to see if that helps his shortness of breath We will get her to a stable O2 saturation before discharging tomorrow Has had 2 step O2 saturation test and he will need 2 L of oxygen at rest and 4 L with ambulation He will be discharged home this afternoon (2) Acute bronchitis: Improved with treatment so far this admission but still wheezing and coughing and with persistent hypoxia. No evidence of pneumonia or pulmonary edema. With his level of hypoxia and wheezing will continue scheduled IV steroids now, schedule nebulized bronchodilators and schedule Tessalon Perles. Mucinex is also scheduled. We will continue current management We will add steroid with long-acting beta-radha inhaler to see if the improvement He will need an outpatient pulmonary follow-up (3) Moderate aortic stenosis: Known history of valve disease, per cardiology. No chest pain and/or palpitation Echo of the heart showed-normal LV chamber size with mild concentric LVH, mildly reduced LV systolic function with EF 40 to 45%, moderate sized apical, posterior and anterolateral wall motion abnormalities, hypokinesis to akinesis of the segments, mild to moderate hypokinesis of the septal and apical brasher, grade 1 diastolic dysfunction, moderately calcified trileaflet aortic valve with moderate aortic stenosis with mild to aortic regurgitation, mild MR and no significant change compared with prior study of 05/14/2021 We will continue current management No CHF (4) HTN (hypertension) with goal to be determined: Blood pressure at goal, restarted lisinopril at 50% dose. (5) CKD (chronic kidney disease), stage III: Chronic, stable, creatinine at baseline. (6) CAD (coronary artery disease): Chronic, appears stable, no chest pain. Troponin was negative on admission. Continue medical management Denies any cardiac symptoms of pain and/or palpitation (7) Ischemic cardiomyopathy: Known history of ischemic cardiomyopathy with reduced EF to 45% per echo in June 2021. Borderline severe aortic stenosis. Continues on metoprolol succinate, Plavix 75, aspirin 81 Repeat echo has been noted Denies any cardiac symptoms (8) DVT prophylaxis: Lovenox Full Dispo-PCU Total Time Total Time Spent Total Time Spent (In Minutes): 35 minutes Discharge Plan Discharge Items Patient Disposition: Home - Self-Care Reason For Visit: CHF Discharge Diagnosis: Acute hypoxic respiratory failure, acute bronchitis, ischemic cardiomyopathy with EF of 40 to 45%, CAD, CKD Condition on Discharge: Fair Activity: Resume your previous activity Non-emergency contact: Primary Care Provider Call non-emergency contact if: you have any medication questions and your symptoms worsen Follow-up/Referrals: Sai Mason MD [Primary Care Provider] - (Your appointment with Dr. Torres check on 10/21/[address] Mason is not available) Diet: Heart Healthy Fluids: 1500ml (6 cups) Addtl Attending Provider Instructions: Please take precautions to avoid fall Use your oxygen as advised You will need to see a lung doctor as an outpatient-please ask your primary care provider for a referral Keep appointments with your healthcare providers Pending Studies at Discharge: No Stand-Alone Forms: My [employer], Smoking Cessation Medications and DC Order Prescriptions: New Breo Ellipta 200-25 mcg/dose Blister With Device 1 ea inhalation DAILY Qty: 28 RF: 0 lisinopril 20 mg Tablet 20 mg PO QAM 30 Days Qty: 30 RF: 0 clopidogrel 75 mg Tablet 75 mg PO QAM 30 Days Qty: 30 RF: 0 Combivent Respimat 20-100 mcg/actuation mist 1 puff inhalation Q6H PRN (Reason: wheezing) Qty: 4 RF: 0 Continued amlodipine 5 mg tablet 5 mg PO QAM RF: 0 nitroglycerin [Nitrostat] 0.4 mg Tablet, Sublingual 0.4 mg sublingual UD PRN (Reason: chest pain) Qty: 30 RF: 0 atorvastatin 40 mg tablet 80 mg PO PM RF: 0 aspirin 81 mg tablet,delayed release (DR/EC) 81 mg PO QAM RF: 0 Coricidin HBP Cough and Cold 4-30 mg Tablet 2 tab PO Q6H PRN (Reason: Cold Symptoms) RF: 0 acetaminophen [Tylenol Extra Strength] 500 mg Tablet 1,000 mg PO Q6H PRN (Reason: Pain) RF: 0 guaifenesin 100 mg/5 mL Liquid 200 mg PO Q4H PRN (Reason: cough symptoms) RF: 0 metoprolol succinate 25 mg tablet extended release 24 hr 25 mg PO DAILY RF: 0 Discontinued lisinopril 40 mg tablet 40 mg PO QAM RF: 0 Discharge Orders: Discharge Order (Routine); Ordered 10/16/21 Ordered By: Sabrina Palma Admission Data Admit Date/Time: 10/10/21 13:30 Attending Provider: Sabrina Palma Admit Provider: Lane Rockwell Primary Care Provider: Sai Mason Other Providers: Lane Rockwell ; Jazmin Weathers Other Interventions: Discharge Summary Assessment (RN) Last Done: 10/16/21 15:31
== END 2021-10-16 16:31 | disposition home or self-care (01) | DRG 189 ==
LOC: ED 10:34 → SUATTDRO 13:30 → 2S 13:30

== ENCOUNTER 2022-09-20 13:07 | Observation (INO) ==
--- NOTE | 2022-09-20 14:03 | Emergency Department Note ---
History of Present Illness General Chief complaint: Shortness of Breath/Dyspnea Time Seen by Provider: 09/20/22 13:56 Source: patient Mode of arrival: ambulatory Limitations: no limitations History of Present Illness Provider complaint: Cough, confusion, shortness of breath Onset (ago): hour(s) This is a 81-year-old male presents Emergency Department via EMS after worsening cough, shortness of breath, nausea and dry heaving, as well as transient confusion this morning. Family bedside helps provide history. Patient just discharged yesterday after being admitted for 4 days with bronchitis. Patient also has significant cardiac history. Patient has been wearing oxygen at home, and using Mucinex. He states he has difficulty using the inhaler as it seems to trigger his gag reflex and felt he did better with nebulizer treatments when he was admitted. He states he has had chills today. He states he was discharged yesterday he felt well, went home, showered, and ate normally. Only states he did have a normal breakfast this morning and then around 10 AM began to complain of feeling worse. He states his cough is productive of a clear sputum, he denies hemoptysis. EMS noted the patient to be 82% on room air, however he had removed his oxygen briefly with the nausea and dry heaving. He was placed on 4 L via nasal cannula and improved to the mid 90s. EMS also gave him a nebulizer treatment prior to transportation which she felt helped. Home Medications Medication Instructions Recorded Confirmed Type amlodipine 5 mg tablet 5 mg PO QAM 05/13/21 09/20/22 History acetaminophen 500 mg tablet 1,000 mg PO Q6H PRN Pain 10/10/21 09/20/22 History (Tylenol Extra Strength) aspirin 81 mg tablet,delayed 81 mg PO QAM 10/10/21 09/20/22 History release atorvastatin 40 mg tablet 80 mg PO PM 10/10/21 09/20/22 History clopidogrel 75 mg tablet 75 mg PO DAILY 09/17/22 09/20/22 History lisinopril 20 mg tablet 20 mg PO QAM 09/17/22 09/20/22 History metoprolol succinate 25 mg 25 mg PO QAM 09/17/22 09/20/22 History tablet,extended release 24 hr nitroglycerin 0.4 mg sublingual 0.4 mg sublingual UD PRN Chest Pain 09/17/22 09/20/22 History tablet benzonatate 100 mg capsule 100 mg PO TID #15 caps 09/19/22 09/20/22 Rx guaifenesin 600 mg tablet, 1,200 mg PO Q12 5 days #20 tabs 09/19/22 09/20/22 Rx extended release 12 hr (Mucinex) loratadine 10 mg tablet (Wal-itin) 10 mg PO QAM #6 tabs 09/19/22 09/20/22 Rx Allergies Allergy/AdvReac Type Severity Reaction Status Date / Time No Known Allergies Allergy Unknown Unverified 09/20/22 17:16 Past Med/Surg History Medical History CAD (coronary artery disease) CKD (chronic kidney disease), stage III Dyslipidemia HTN (hypertension) with goal to be determined Moderate aortic stenosis Surgical History H/O lithotripsy History of cataract surgery S/P cardiac catheterization Family History Sister Heart disease Brother Heart disease Social History Smoking Status: Former smoker Tobacco Type: Cigars Second Hand Exposure: No; Do You Dip or Chew Tobacco: No; Tobacco Cessation Education Requested by Patient: No Hx Alcohol Use: Yes Alcohol type: hard liquor Hx Substance Use: No Preferred Language: Irish Communication Ability: Effective Joggle Press Operator Required: No Beliefs That Will Affect Care: None marital status: Current Living Situation: Spouse Other Information That Helps Us Care for You: No Feels Safe at Home: Yes Safety Concerns: Feels Safe At This Time Assistive Devices: Cane, Denture - Upper and Oxygen - Continuous Review of Systems A total of 10 systems reviewed and were otherwise negative All systems reviewed & are unremarkable except as noted in HPI & below Physical Exam Vital Signs Vital Signs - 24 hr 09/20/22 13:15 09/20/22 13:15 09/20/22 13:15 Temperature 37.1 C Temperature Source Oral Pulse Rate 105 H Pulse Rate from SpO2 Sensor Pulse Rhythm Regular Pulse Strength Normal Respiratory Rate 26 H Respiratory Effort / Characteristics Non-Labored Spontaneous Non-Labored Spontaneous Short of Breath Respiratory Depth Shallow Normal Respiratory Pattern Regular Regular Blood Pressure 128/62 Blood Pressure Mean 84 Blood Pressure Position Sitting Pulse Oximetry 96 Oxygen Delivery Method Nasal Cannula Nasal Cannula Nasal Cannula Oxygen Flow Rate 4 4 4 Sepsis Recent Fever Within 48 Hours No Sepsis New/Unexplained Change in Mental Status N/A Sepsis Action Taken by Nursing Previously Notified 09/20/22 15:01 09/20/22 16:30 09/20/22 17:00 Temperature Temperature Source Pulse Rate 85 Pulse Rate from SpO2 Sensor 85 86 Pulse Rhythm Pulse Strength Respiratory Rate Respiratory Effort / Characteristics Respiratory Depth Respiratory Pattern Blood Pressure 103/54 L 108/63 108/63 Blood Pressure Mean 70 78 78 Blood Pressure Position Pulse Oximetry 95 90 Oxygen Delivery Method Room Air Oxygen Flow Rate 4 Sepsis Recent Fever Within 48 Hours Sepsis New/Unexplained Change in Mental Status Sepsis Action Taken by Nursing 09/20/22 17:00 09/20/22 17:30 09/20/22 17:30 Temperature Temperature Source Pulse Rate 83 80 Pulse Rate from SpO2 Sensor Pulse Rhythm Pulse Strength Respiratory Rate 18 15 Respiratory Effort / Characteristics Respiratory Depth Respiratory Pattern Blood Pressure 103/56 L Blood Pressure Mean 71 Blood Pressure Position Pulse Oximetry Oxygen Delivery Method Oxygen Flow Rate Sepsis Recent Fever Within 48 Hours Sepsis New/Unexplained Change in Mental Status Sepsis Action Taken by Nursing GENERAL: alert, unwell appearing, well nourished, no distress, non-toxic EYE EXAM: normal conjunctiva, PERRL and EOM's grossly intact OROPHARYNX: no exudate, no erythema, lips, buccal mucosa, and tongue normal and mucous membranes are moist NECK: supple, no nuchal rigidity, no adenopathy, non-tender LUNGS: Clear to auscultation. Normal chest wall mechanics, right-sided rhonchi and expiratory wheeze noted superiorly, mild conversational tachypnea HEART: no murmurs, S1 normal and S2 normal ABDOMEN: abdomen soft, non-tender, normo-active bowel sounds, no masses, no rebound or guarding. BACK: Back is symmetrical on inspection and there is no deformity, no midline tenderness, no CVA tenderness. SKIN: no rashes and no bruising UPPER EXTREMITIES: upper extremities are grossly normal. FROM, nml pulses b/l. LOWER EXTREMITIES: No pitting edema. FROM, nml pulses b/l. NEURO EXAM: Normal sensorium, cranial nerves II-XII grossly intact, normal speech, no gross weakness of arms, no gross weakness of legs. Gross sensation intact. Course Administered Medications Albuterol (Albut/Ipratrop 3mg/0.5mg Neb 3 Ml Vial) 3 ml NEB Q4R OPAL; Protocol Stop: 10/20/22 20:47 Last Admin: 09/21/22 02:10 Dose: 3 ml Documented By: Admin: 09/20/22 22:31 Dose: 3 ml Documented By: Admin: 09/20/22 21:12 Dose: Not Given Documented By: CS Atorvastatin Calcium (Atorvastatin 40 Mg Tab) 80 mg PO PM OPAL Stop: 10/20/22 20:59 Last Admin: 09/20/22 21:59 Dose: 80 mg Documented By: MPC Enoxaparin Sodium (Enoxaparin Inj 40 Mg/0.4 Ml Syr) 40 mg SQ Q24H OPAL Stop: 10/20/22 21:59 Last Admin: 09/20/22 21:59 Dose: 40 mg Documented By: MPC Guaifenesin (Guaifenesin 600 Mg Tabcr) 1,200 mg PO Q12 OPAL Stop: 10/20/22 20:59 Last Admin: 09/20/22 21:59 Dose: 1,200 mg Documented By: SHAWNA Ceftriaxone Sodium 2,000 mg/ (Dextrose) 70 mls @ 100 mls/hr IV Q24H OPAL; Protocol Stop: 09/27/22 19:59 Last Infusion: 09/20/22 20:33 Dose: 0 mls/hr Documented By: Admin: 09/20/22 19:38 Dose: 100 mls/hr Documented By: EMB Discontinued Medications Albuterol (Albut/Ipratrop 3mg/0.5mg Neb 3 Ml Vial) 3 ml NEB NOW STA; Protocol Stop: 09/20/22 16:32 Last Admin: 09/20/22 16:54 Dose: 3 ml Documented By: MT Albuterol (Albut/Ipratrop 3mg/0.5mg Neb 3 Ml Vial) Confirm Administered Dose 3 ml .ROUTE .STK-MED ONE Stop: 09/20/22 21:06 Last Admin: 09/20/22 21:12 Dose: Not Given Documented By: CS Azithromycin (Azithromycin 250 Mg Tab) 500 mg PO NOW ONE Stop: 09/20/22 18:08 Last Admin: 09/20/22 19:39 Dose: 500 mg Documented By: EARLE Ceftriaxone Sodium (Ceftriaxone Sodium 2000mg/70ml D5w) Confirm Administered Dose 2,000 mg IV .STK-MED ONE Stop: 09/20/22 19:33 Last Admin: 09/20/22 19:38 Dose: Not Given Documented By: EARLE Sodium Chloride (Nss 1000ml) 1,000 mls @ 125 mls/hr IV .Q8H OPAL Stop: 10/20/22 16:29 Last Infusion: 09/20/22 21:39 Dose: 0 mls/hr Documented By: Admin: 09/20/22 16:53 Dose: 125 mls/hr Documented By: SURYA Methylprednisolone (Methylprednisolone 40 Mg/Ml Vial) 40 mg IV Q8H OPAL Stop: 10/20/22 18:14 Last Admin: 09/20/22 21:40 Dose: Not Given Documented By: SHAWNA Methylprednisolone (Methylprednisolone 40 Mg/Ml Vial) 40 mg IV ONE ONE Stop: 09/20/22 19:31 Last Admin: 09/20/22 19:39 Dose: 40 mg Documented By: EARLE Medical Decision Making Differential Diagnosis Differential diagnoses includes but is not limited to pneumonia, bronchitis, COPD/Asthma exacerbation, pneumothorax, pulmonary embolism, congestive heart failure, acute coronary syndrome Medical Records Attestation: I reviewed the patient's medical records. Home Medications Current Medication List: was personally reviewed by me Laboratory Data Attestation: I reviewed the patient's lab results. Result diagrams: 09/20/22 14:27 09/20/22 14:27 Lab Results 09/20/22 09/20/22 09/20/22 Range/Units 14:27 14:27 14:27 WBC 10.09 (4.8-10.8) K/ul RBC 3.48 L (4.63-6.08) M/uL Hgb 11.3 L (14.0-18.0) g/dl Hct 33.6 L (40.1-51.0) % MCV 96.6 (80.0-100.0) fL MCH 32.5 (25.0-34.0) pg MCHC 33.6 (32.0-36.0) g/dL RDW Std Deviation 47.4 H (36.4-46.3) fL RDW Coeff of [place] 13.2 (11.5-14.5) % Plt Count 111 L (130-400) K/uL MPV 11.1 (9.4-12.4) fL Immature Gran % (Auto) 0.7 % Neut % (Auto) 91.6 % Lymph % (Auto) 2.0 % [place] % (Auto) 5.6 % Eos % (Auto) 0.0 % Baso % (Auto) 0.1 % Neut # (Auto) 9.25 H (1.4-6.5) K/uL Lymph # (Auto) 0.20 L (1.2-3.4) K/uL [place] # (Auto) 0.56 (0.24-0.82) K/uL Eos # (Auto) 0.00 (0-0.50) K/uL Baso # (Auto) 0.01 (0-0.2) K/uL Immature Gran # (Auto) 0.07 H (0.00-0.02) K/uL Sodium 136 (136-145) mmol/L Potassium 4.3 (3.5-5.1) mmol/L Chloride 104 (98-107) mmol/L Carbon Dioxide 25 (21-32) mmol/L Anion Gap 7 (3-11) BUN 45 H (6-23) mg/dl Creatinine 1.33 (0.6-1.4) mg/dl Est Cr Clr Drug Dosing 50.2 ml/min Est GFR ( Amer) 58.5 ml/min Est GFR (Non-Af Amer) 50.5 ml/min BUN/Creatinine Ratio 33.8 H (10-20) Glucose 143 H (70-99(Fasting)) mg/dl Calcium 8.6 (8.5-10.1) mg/dl Magnesium 2.0 (1.7-2.4) mg/dl Total Bilirubin 0.8 (0.2-1.0) mg/dl AST 48 H (13-39) U/L ALT 43 (7-52) U/L Alkaline Phosphatase 92 (34-104) U/L Troponin I High Sens 25.7 H (0-20) pg/ml B-Natriuretic Peptide 131 H (0-100) pg/ml Total Protein 7.1 (6.0-8.3) gm/dl Albumin 3.8 (3.4-5.0) gm/dl Globulin 3.3 (2.5-4.0) gm/dl Albumin/Globulin Ratio 1.2 (0.9-2) Lipase 21 (11-82) U/L Procalcitonin (0-0.5) ng/ml TSH (0.300-4.500) uIu/ml Adenovirus (PCR) (NotDetected) B. pertussis DNA (PCR) (NotDetected) B.parapertussis DNA PCR (NotDetected) C. pneumoniae DNA (PCR) (NotDetected) Coronavirus OC43 (PCR) (NotDetected) Coronavirus HKU1 (PCR) (NotDetected) Coronavirus 229E (PCR) (NotDetected) SARS-CoV-2 (PCR) (NotDetected) Coronavirus NL63 (PCR) (NotDetected) Human Metapneumovir PCR (NotDetected) Influenza Type A (PCR) (NotDetected) Influenza Type B (PCR) (NotDetected) M. pneumoniae (PCR) (NotDetected) Parainfluenza 1 (PCR) (NotDetected) Parainfluenza 2 (PCR) (NotDetected) Parainfluenza 3 (PCR) (NotDetected) Parainfluenza 4 (PCR) (NotDetected) RSV (PCR) (NotDetected) Entero/Rhino (PCR) (NotDetected) 09/20/22 09/20/22 09/20/22 Range/Units 14:27 14:27 16:55 WBC (4.8-10.8) K/ul RBC (4.63-6.08) M/uL Hgb (14.0-18.0) g/dl Hct (40.1-51.0) % MCV (80.0-100.0) fL MCH (25.0-34.0) pg MCHC (32.0-36.0) g/dL RDW Std Deviation (36.4-46.3) fL RDW Coeff of [place] (11.5-14.5) % Plt Count (130-400) K/uL MPV (9.4-12.4) fL Immature Gran % (Auto) % Neut % (Auto) % Lymph % (Auto) % [place] % (Auto) % Eos % (Auto) % Baso % (Auto) % Neut # (Auto) (1.4-6.5) K/uL Lymph # (Auto) (1.2-3.4) K/uL [place] # (Auto) (0.24-0.82) K/uL Eos # (Auto) (0-0.50) K/uL Baso # (Auto) (0-0.2) K/uL Immature Gran # (Auto) (0.00-0.02) K/uL Sodium (136-145) mmol/L Potassium (3.5-5.1) mmol/L Chloride (98-107) mmol/L Carbon Dioxide (21-32) mmol/L Anion Gap (3-11) BUN (6-23) mg/dl Creatinine (0.6-1.4) mg/dl Est Cr Clr Drug Dosing ml/min Est GFR ( Amer) ml/min Est GFR (Non-Af Amer) ml/min BUN/Creatinine Ratio (10-20) Glucose (70-99(Fasting)) mg/dl Calcium (8.5-10.1) mg/dl Magnesium (1.7-2.4) mg/dl Total Bilirubin (0.2-1.0) mg/dl AST (13-39) U/L ALT (7-52) U/L Alkaline Phosphatase (34-104) U/L Troponin I High Sens (0-20) pg/ml B-Natriuretic Peptide (0-100) pg/ml Total Protein (6.0-8.3) gm/dl Albumin (3.4-5.0) gm/dl Globulin (2.5-4.0) gm/dl Albumin/Globulin Ratio (0.9-2) Lipase (11-82) U/L Procalcitonin 0.43 (0-0.5) ng/ml TSH 1.876 (0.300-4.500) uIu/ml Adenovirus (PCR) Not Detected (NotDetected) B. pertussis DNA (PCR) Not Detected (NotDetected) B.parapertussis DNA PCR Not Detected (NotDetected) C. pneumoniae DNA (PCR) Not Detected (NotDetected) Coronavirus OC43 (PCR) Not Detected (NotDetected) Coronavirus HKU1 (PCR) Not Detected (NotDetected) Coronavirus 229E (PCR) Not Detected (NotDetected) SARS-CoV-2 (PCR) Not Detected (NotDetected) Coronavirus NL63 (PCR) Not Detected (NotDetected) Human Metapneumovir PCR Not Detected (NotDetected) Influenza Type A (PCR) Not Detected (NotDetected) Influenza Type B (PCR) Not Detected (NotDetected) M. pneumoniae (PCR) Not Detected (NotDetected) Parainfluenza 1 (PCR) DETECTED A* (NotDetected) Parainfluenza 2 (PCR) Not Detected (NotDetected) Parainfluenza 3 (PCR) Not Detected (NotDetected) Parainfluenza 4 (PCR) Not Detected (NotDetected) RSV (PCR) Not Detected (NotDetected) Entero/Rhino (PCR) Not Detected (NotDetected) Imaging Data Radiologist's Impression: Chest X-Ray 09/20/22 14:18 XR chest 1V portable CLINICAL HISTORY: sob, wheezing TECHNIQUE: Single frontal radiograph of the chest was obtained. Comparison: Comparison is made to chest radiograph 09/19/2022 FINDINGS: No lines and tubes are seen. Cardiomegaly is noted. Faint airspace opacities in the right lower lung. No evidence of pleural effusion or pneumothorax. IMPRESSION: Faint right lower lung airspace opacity which may represent atelectasis, pneumonia, and/or aspiration. ACT 112: Negative or not required by law. Electronically signed by: Shawn Camejo M.D. 09/20/2022 2:43 PM ECG Data Attestation: I personally reviewed and interpreted this ECG as follows: Indication: + SOB/dyspnea Rate (beats per minute): 105 Rhythm: + sinus tachycardia ECG Intervals/blocks: + Normal QRS and + Normal QT ECG [place]: + Normal ECG ST segments: + Nonspecific ST abnormalities MDM Narrative An order was placed for continuous cardiac monitoring. The monitor shows a rate of _90__ with _nsr__ rhythm. THis is a 81 yo male who presents with increased SOB, transient confusion, nausea and dry heaving, and increased sob today. Patient with recent admission for bronchitis. Patient has been wearing oxygen and admits to having difficulty using the MDI. VS stable and patient able to be weaned back down to 2 lpm via NC however cxr now suggestive of pna. Patient also with mild troponin elevation. Other labs stable compared to prior. Patient does have significant cardiac hx and echo last year showed EF 45% and . Procal and biofire added after review of results. CAse discussed with hospitalist team for additional evaluation. THey would like to follow procal and biofire which were still pending before deciding on antibiotics for the patient. I do not suspect ACS or over CHF as the etiology of his worsening symptoms today. I suspect bronchitis evolving into pna and given age and comorbidities, patient now more symptomatic. Impression & Plan Dyspnea, Acute respiratory failure with hypoxia, Pneumonia, Elevated troponin Discharge Plan Visit Data Chief Complaint: Shortness of Breath/Dyspnea ED Provider: Tracee Cornelius Discharge Problem: Dyspnea, Acute respiratory failure with hypoxia, Pneumonia, Elevated troponin Patient Disposition: Admitted As Inpatient Discharge Instructions Interventions: ED Discharge Assessment Last Done: 09/20/22 20:19
[2022-09-20 14:38] LABS: Hematocrit (blood only) 33.6 % (40.1-51.0); Hemoglobin 11.3 g/dl (14.0-18.0); Mean Corpuscular Hemoglobin 32.5 pg (25.0-34.0); Mean Corpuscular Hgb Conc 33.6 g/dL (32.0-36.0); Mean Corpuscular Volume 96.6 fL (80.0-100.0); Mean Platelet Volume 11.1 fL (9.4-12.4); Platelet Count 111 K/uL (130-400); RDW Coefficient of Variation 13.2 % (11.5-14.5); RDW Standard Deviation 47.4 fL (36.4-46.3); Red Blood Count 3.48 M/uL (4.63-6.08); White Blood Count 10.09 K/ul (4.8-10.8)
--- NOTE | 2022-09-20 14:44 | XRay Report ---
XR chest 1V portable CLINICAL HISTORY: sob, wheezing TECHNIQUE: Single frontal radiograph of the chest was obtained. Comparison: Comparison is made to chest radiograph 09/19/2022 FINDINGS: No lines and tubes are seen. Cardiomegaly is noted. Faint airspace opacities in the right lower lung. No evidence of pleural effusion or pneumothorax. IMPRESSION: Faint right lower lung airspace opacity which may represent atelectasis, pneumonia, and/or aspiration . ACT 112: Negative or not required by law. Electronically signed by: Shanw Camejo M.D. 09/20/2022 2:43 PM
[2022-09-20 14:55] LABS: Basophils # (auto) 0.01 K/uL (0-0.2); Basophils % (auto) 0.1 %; Immature Granulocytes # (auto) 0.07 K/uL (0.00-0.02); Immature Granulocytes % (auto) 0.7 %; Monocytes # (auto) 0.56 K/uL (0.24-0.82); Monocytes % (auto) 5.6 %; Neutrophils # (auto) 9.25 K/uL (1.4-6.5); Neutrophils % (auto) 91.6 %
[2022-09-20 15:06] LABS: Troponin I High Sensitivity 25.7 pg/ml (0-20)
[2022-09-20 15:08] LABS: Albumin Globulin Ratio 1.2 (0.9-2); Albumin Level 3.8 gm/dl (3.4-5.0); BUN Creatinine Ratio 33.8 (10-20); Bilirubin,Total 0.8 mg/dl (0.2-1.0); Calcium 8.6 mg/dl (8.5-10.1); Creatinine Clr Calc Pharmacy 50.2 ml/min; Est GFR (African American) 58.5 ml/min; Est GFR (Non-African American) 50.5 ml/min; Globulin 3.3 gm/dl (2.5-4.0); Potassium 4.3 mmol/L (3.5-5.1); Total Protein 7.1 gm/dl (6.0-8.3)
[2022-09-20] MEDS ORDERED: SODIUM CHLORIDE 0.9% 1000ML 1,000 ML IV SCH (16:30)
[2022-09-20] MEDS ORDERED: ALBUT/IPRATROP 3MG/0.5MG NEB 3 ML VIAL NEB STA (16:31)
--- NOTE | 2022-09-20 17:48 | Electrocardiogram Report ---
Test Reason : Blood Pressure : / mmHG Vent. Rate : 105 BPM Atrial Rate : 105 BPM P-R Int : 180 ms QRS Dur : 094 ms QT Int : 312 ms P-R-T Axes : 029 061 011 degrees QTc Int : 412 ms Sinus tachycardia T wave abnormality, consider inferolateral ischemia Abnormal ECG When compared with ECG of 17-SEP-2022 06:22, AK interval has decreased Non-specific change in ST segment in Inferior leads Inverted T waves have replaced nonspecific T wave abnormality in Lateral leads Confirmed by Twin English ([id number]) on 09/20/2022 5:48:29 PM Referred By: REFERRED SELF Confirmed By:Anthony English
[2022-09-20] MEDS ORDERED: AZITHROMYCIN 250 MG TAB PO ONE (18:07)
--- NOTE | 2022-09-20 18:14 | History & Physical Report ---
Date of Service September 20, 2022 Assessment & Plan (1) Acute respiratory failure with hypoxemia: (2) Acute bronchitis: (3) Pneumonia: Plan: Recently admitted from 09/17-09/19 with acute bronchitis. Treated with steroid, nebulization. Was discharged home on 2 L of oxygen by nasal cannula. History of similar episode in September 2021 Afebrile, normotensive and requiring 4 L of oxygen by nasal cannula X-ray shows faint right lower lung opacity Pro-Jaziel 0.46 [id number] Plan; Start on DuoNebs every 4 hours, IV Solu-Medrol 40 mg 3 times daily, flutter valve and incentive spirometry. - Started on ceftriaxone and azithromycin. - Follow-up on respiratory viral panel. (4) Ischemic cardiomyopathy: Plan: Appear compensated. No complaint of chest pain BNP 131 Chest x-rayno pulmonary edema Echo on 08/18- EF of 45-49 % moderate to borderline severe aortic stenosis, mild aortic valv regurg, Continue home aspirin, Plavix, metoprolol, lisinopril. Stop IV fluids (5) Dyslipidemia: Plan: Continue Lipitor (6) CKD (chronic kidney disease), stage III: Plan: Creatinine at baseline. Monitor BMP History of Present Illness Chief Complaint: Increasing cough for 1 day Shortness of breath for 1 day. Primary Care Provider: Sai Mason MD History of ischemic cardiomyopathy with EF of 45%; medically managed, aortic stenosis, hypertension, hyperlipidemia, CKD stage III Recently admitted from 09/17-09/19 with acute bronchitis. Treated with steroid, nebulization. Was discharged home on 2 L of oxygen by nasal cannula. Patient came back to his home yesterday after discharge from the hospital. He was feeling well till this morning. In the morning after his breakfast, patient started to have increasing bouts of cough with white phlegm as well as increasing shortness of breath. He also had chills and was intermittently confused as per his . Reports compliance with the oxygen after discharge. No complaint of chest pain, fever, dizziness, weakness/numbness of any body part, abdominal pain or urinary symptoms. Remote history of smoking in his youth. Admitted last year in September with similar issue; treated with nebulized bronchodilator, IV steroids. He tried inhaled steroids as outpatient but was unable to tolerate it. Allergies Allergy/AdvReac Type Severity Reaction Status Date / Time No Known Allergies Allergy Unknown Unverified 09/20/22 17:16 Home Medications Medication Instructions Recorded Confirmed Type amlodipine 5 mg tablet 5 mg PO QAM 05/13/21 09/20/22 History acetaminophen 500 mg tablet 1,000 mg PO Q6H PRN Pain 10/10/21 09/20/22 History (Tylenol Extra Strength) aspirin 81 mg tablet,delayed 81 mg PO QAM 10/10/21 09/20/22 History release atorvastatin 40 mg tablet 80 mg PO PM 10/10/21 09/20/22 History clopidogrel 75 mg tablet 75 mg PO DAILY 09/17/22 09/20/22 History lisinopril 20 mg tablet 20 mg PO QAM 09/17/22 09/20/22 History metoprolol succinate 25 mg 25 mg PO QAM 09/17/22 09/20/22 History tablet,extended release 24 hr nitroglycerin 0.4 mg sublingual 0.4 mg sublingual UD PRN Chest Pain 09/17/22 09/20/22 History tablet benzonatate 100 mg capsule 100 mg PO TID #15 caps 09/19/22 09/20/22 Rx guaifenesin 600 mg tablet, 1,200 mg PO Q12 5 days #20 tabs 09/19/22 09/20/22 Rx extended release 12 hr (Mucinex) loratadine 10 mg tablet (Wal-itin) 10 mg PO QAM #6 tabs 09/19/22 09/20/22 Rx Past Med/Surg History Medical History CAD (coronary artery disease) CKD (chronic kidney disease), stage III Dyslipidemia HTN (hypertension) with goal to be determined Moderate aortic stenosis Surgical History H/O lithotripsy History of cataract surgery S/P cardiac catheterization Family History Sister Heart disease Brother Heart disease Social History Smoking Status: Never smoker Tobacco Type: Cigars Hx Alcohol Use: Yes Alcohol type: hard liquor Hx Substance Use: No Preferred Language: [place]ankan Communication Ability: Effective Mechanical Handyman Required: No Beliefs That Will Affect Care: None marital status: Current Living Situation: Spouse Feels Safe at Home: Yes Assistive Devices: Other Review of Systems Review of Systems: All systems reviewed & are unremarkable except as noted in Subjective Physical Exam Physical Exam: Constitutional: WD/WN, vitals as above, NAD, sitting up in bed, pleasant, conversing easily Respiratory: Bilateral coarse rhonchi heard; right greater than left. Cardiovascular: RRR, no murmur, no edema Vessels: no JVD or carotid bruit Chest: normal inspection of chest Abdomen: normal bowel sounds, soft, nontender, no hepatosplenomegaly Musculoskeletal: no cyanosis or clubbing, extremities motor strength 5/5 Skin: no rashes, warm and dry normal turgor Neurologic: PERRL, EOMI, accommodation nl, no face palsy, no dysarthria CN's II- XI intact bilaterally and moves all extremities Psychiatric: A+Ox3, euthymic affect Lymphatic: no cervical or axillary lymphadenopathy : deferred Results & Data Results & Data ([facility]) Vital Signs (Past 12 Hours) Vital Signs Temp Pulse Resp BP Pulse Ox O2 Del Method O2 Flow Rate 09/20/22 16:30 85 108/63 90 Room Air 09/20/22 15:01 103/54 L 95 4 09/20/22 13:15 Nasal Cannula 4 09/20/22 13:15 37.1 C 105 H 26 H 128/62 96 Nasal Cannula 4 09/20/22 13:15 Nasal Cannula 4 Laboratory Results Laboratory Results WBC 10.09 K/ul (4.8-10.8) 09/20/22 14: RBC 3.48 M/uL (4.63-6.08) L 09/20/22 14:27 Hgb 11.3 g/dl (14.0-18.0) L 09/20/22 14:27 Hct 33.6 % (40.1-51.0) L 09/20/22 14:27 MCV 96.6 fL (80.0-100.0) 09/20/22 14:27 MCH 32.5 pg (25.0-34.0) 09/20/22 14: MCHC 33.6 g/dL (32.0-36.0) 09/20/22 14:27 RDW Std Deviation 47.4 fL (36.4-46.3) H 09/20/22 14:27 RDW Coeff of Kaiden 13.2 % (11.5-14.5) 09/20/22 14: Plt Count 111 K/uL (130-400) L 09/20/22 14: MPV 11.1 fL (9.4-12.4) 09/20/22 14: Immature Gran % (Auto) 0.7 % 09/20/22 14: Neut % (Auto) 91.6 % 09/20/22 14: Lymph % (Auto) 2.0 % 09/20/22 14: Grayson % (Auto) 5.6 % 09/20/22 14: Eos % (Auto) 0.0 % 09/20/22 14: Baso % (Auto) 0.1 % 09/20/22 14: Neut # (Auto) 9.25 K/uL (1.4-6.5) H 09/20/22 14: Lymph # (Auto) 0.20 K/uL (1.2-3.4) L 09/20/22 14:27 Grayson # (Auto) 0.56 K/uL (0.24-0.82) 09/20/22 14: Eos # (Auto) 0.00 K/uL (0-0.50) 09/20/22 14: Baso # (Auto) 0.01 K/uL (0-0.2) 09/20/22 14: Immature Gran # (Auto) 0.07 K/uL (0.00-0.02) H 09/20/22 14:27 Sodium 136 mmol/L (136-145) 09/20/22 14:27 Potassium 4.3 mmol/L (3.5-5.1) 09/20/22 14: Chloride 104 mmol/L (98-107) 09/20/22 14: Carbon Dioxide 25 mmol/L (21-32) 09/20/22 14:27 Anion Gap 7 (3-11) 09/20/22 14:27 BUN 45 mg/dl (6-23) H 09/20/22 14:27 Creatinine 1.33 mg/dl (0.6-1.4) 09/20/22 14:27 Est Cr Clr Drug Dosing 50.2 ml/min 09/20/22 14:27 Est GFR ( Amer) 58.5 ml/min 09/20/22 14:27 Est GFR (Non-Af Amer) 50.5 ml/min 09/20/22 14:27 BUN/Creatinine Ratio 33.8 (10-20) H 09/20/22 14:27 Glucose 143 mg/dl (70-99(Fasting)) H 09/20/22 14:27 Calcium 8.6 mg/dl (8.5-10.1) 09/20/22 14:27 Magnesium 2.0 mg/dl (1.7-2.4) 09/20/22 14:27 Total Bilirubin 0.8 mg/dl (0.2-1.0) 09/20/22 14:27 AST 48 U/L (13-39) H 09/20/22 14:27 ALT 43 U/L (7-52) 09/20/22 14:27 Alkaline Phosphatase 92 U/L (34-104) 09/20/22 14:27 Troponin I High Sens 25.7 pg/ml (0-20) H 09/20/22 14:27 B-Natriuretic Peptide 131 pg/ml (0-100) H 09/20/22 14:27 Total Protein 7.1 gm/dl (6.0-8.3) 09/20/22 14:27 Albumin 3.8 gm/dl (3.4-5.0) 09/20/22 14:27 Globulin 3.3 gm/dl (2.5-4.0) 09/20/22 14:27 Albumin/Globulin Ratio 1.2 (0.9-2) 09/20/22 14:27 Lipase 21 U/L (11-82) 09/20/22 14:27 Procalcitonin 0.43 ng/ml (0-0.5) 09/20/22 14:27 TSH 1.876 uIu/ml (0.300-4.500) 09/20/22 14:27 Impressions Chest X-Ray 09/20/22 14:18 XR chest 1V portable CLINICAL HISTORY: sob, wheezing TECHNIQUE: Single frontal radiograph of the chest was obtained. Comparison: Comparison is made to chest radiograph 09/19/2022 FINDINGS: No lines and tubes are seen. Cardiomegaly is noted. Faint airspace opacities in the right lower lung. No evidence of pleural effusion or pneumothorax. IMPRESSION: Faint right lower lung airspace opacity which may represent atelectasis, pneumonia, and/or aspiration. ACT 112: Negative or not required by law. Electronically signed by: Shawn Camejo M.D. 09/20/2022 2:43 PM Code Status & VTE Plan VTE Prophylaxis Plan VTE Prophylaxis will be ordered: Yes
[2022-09-20 18:33] LABS: Adenovirus PCR Not Detected (NotDetected); Bordetella parapertussis PCR Not Detected (NotDetected); Bordetella pertussis PCR Not Detected (NotDetected); Chlamydia pneumoniae PCR Not Detected (NotDetected); Coronavirus 229E PCR Not Detected (NotDetected); Coronavirus CoV-2 (COVID19)PCR Not Detected (NotDetected); Coronavirus HKU1 PCR Not Detected (NotDetected); Coronavirus NL63 PCR Not Detected (NotDetected); Coronavirus OC43PCR Not Detected (NotDetected); Human Metapneumovirus PCR Not Detected (NotDetected); Influenza A PCR Not Detected (NotDetected); Influenza B PCR Not Detected (NotDetected); Mycoplasma pneumoniae PCR Not Detected (NotDetected); Parainfluenza Virus 2 PCR Not Detected (NotDetected); Parainfluenza Virus 3 PCR Not Detected (NotDetected); Parainfluenza Virus 4 PCR Not Detected (NotDetected); Respiratory Syncytial VirusPCR Not Detected (NotDetected); Rhinovirus/Enterovirus PCR Not Detected (NotDetected)
[2022-09-20 18:45] LABS: Parainfluenza Virus 1 PCR DETECTED (NotDetected)
[2022-09-20] MEDS ORDERED: cefTRIAXone SODIUM 2000MG/70ML D5W IV ONE (19:32)
[2022-09-20] MEDS: cefTRIAXone SODIUM 2,000 MG in DEXTROSE 5% 50 ML IV SCH (19:38)
[2022-09-20] MEDS ORDERED: ACETAMINOPHEN 325 MG TAB PO PRN (20:48)
[2022-09-20] MEDS ORDERED: ALBUT/IPRATROP 3MG/0.5MG NEB 3 ML VIAL ONE (21:05)
[2022-09-20] MEDS: ALBUT/IPRATROP 3MG/0.5MG NEB 3 ML VIAL NEB SCH ×2 (21:12→22:31)
[2022-09-20] MEDS: guaiFENesin 600 MG TABCR PO SCH (21:59)
[2022-09-20] MEDS: ATORVASTATIN 40 MG TAB PO SCH (21:59)
[2022-09-20] MEDS: ENOXAPARIN INJ 40 MG/0.4 ML SYR SQ SCH (21:59)
[2022-09-21] MEDS: ALBUT/IPRATROP 3MG/0.5MG NEB 3 ML VIAL NEB SCH ×6 (02:10→22:34)
[2022-09-21] MEDS ORDERED: methylPREDNISolone 40 MG in SYRINGE 0 ML IV SCH (04:00)
[2022-09-21] MEDS: METOPROLOL SUCC 25MG EXT REL TAB PO SCH (07:52)
[2022-09-21] MEDS: lisinopril 20 MG TAB PO SCH (07:53)
[2022-09-21] MEDS: guaiFENesin 600 MG TABCR PO SCH ×2 (07:53→20:47)
[2022-09-21] MEDS: ASPIRIN 81 MG ECTAB PO SCH (07:53)
[2022-09-21] MEDS: amLODIPine BESYLATE 5 MG TAB PO SCH (07:53)
[2022-09-21] MEDS: CLOPIDOGREL BISULFATE 75 MG TAB PO SCH (07:53)
[2022-09-21] MEDS: LORATADINE 10 MG TAB PO SCH (07:53)
[2022-09-21 08:43] LABS: Hemoglobin 10.6 g/dl (14.0-18.0); Mean Corpuscular Hemoglobin 31.8 pg (25.0-34.0); Mean Corpuscular Hgb Conc 33.1 g/dL (32.0-36.0); Mean Corpuscular Volume 96.1 fL (80.0-100.0); Mean Platelet Volume 11.5 fL (9.4-12.4); Platelet Count 134 K/uL (130-400); RDW Coefficient of Variation 12.8 % (11.5-14.5); RDW Standard Deviation 45.5 fL (36.4-46.3); Red Blood Count 3.33 M/uL (4.63-6.08); White Blood Count 11.79 K/ul (4.8-10.8)
[2022-09-21 09:36] LABS: BUN Creatinine Ratio 37.8 (10-20); Calcium 8.3 mg/dl (8.5-10.1); Creatinine Clr Calc Pharmacy 52.3 ml/min; Est GFR (African American) 61.9 ml/min; Est GFR (Non-African American) 53.4 ml/min; Potassium 4.2 mmol/L (3.5-5.1)
--- NOTE | 2022-09-21 11:16 | Hospitalist Progress Note ---
Date of Service September 21, 2022 Assessment & Plan (1) Acute respiratory failure with hypoxemia: (2) Acute bronchitis: (3) Pneumonia: Plan: Recently admitted from 09/17-09/19 with acute bronchitis. Treated with steroid, nebulization. Was discharged home on 2 L of oxygen by nasal cannula. History of similar episode in September 2021 Reported feeling good at home until yesterday when he developed worsening cough, shortness of breath and chills On presentation in ER, he was afebrile, normotensive and requiring 4 L of oxygen by nasal cannula X-ray shows faint right lower lung opacity Pro-Jaziel 0.46 [id number] Resp PCR was +for Parainfluenza Continue nebs Change IV Solu-Medrol to prednisone for 4 more days Flutter valve and incentive spirometry. Continue to wean oxygen Continue ceftriaxone and azithromycin. (4) Ischemic cardiomyopathy: Plan: Appear compensated. No complaint of chest pain BNP 131 Echo on 08/18- EF of 45-49 % moderate to borderline severe aortic stenosis, mild aortic valv regurg, Continue home aspirin, Plavix, metoprolol, lisinopril. (5) Dyslipidemia: Plan: Continue Lipitor (6) CKD (chronic kidney disease), stage III: Plan: Creatinine at baseline. DVT PPX- lovenox sq Admission and Anticipated Discharge Date Admission Date: September 20, 2022 Subjective Patient seen and examined. Reports cough, occasionally productive of whitish sputum. Reports some sore throat. Denies rhinorrhea or congestion. Reported some shortness of breath at home which is improved. Denied any chest pain, palpitations. Reported chills at home yesterday prior to presentation which is resolved. Denied any nausea, vomiting, abdominal pain, diarrhea Denied any dysuria, frequency, urgency Physical Exam Constitutional: + well hydrated; no acute distress Eyes: PERRL, conjunctivae normal, anicteric sclerae ENMT: external ear and nose normal, oropharynx normal Respiratory: normal respiratory effort; no respiratory distress Scattered expiratory rhonchi Cardiovascular: Rate/Rhythm: regular rate and regular rhythm S1 S2 Gastrointestinal (Abdomen): normal bowel sounds, soft, nontender, no hepatosplenomegaly Musculoskeletal: no cyanosis or clubbing, extremities motor strength 5/5 Neurologic: PERRL, EOMI, accommodation nl, no face palsy, no dysarthria Psychiatric: A+Ox3, euthymic affect Results & Data Results & Data ([facility]) Vital Signs (Past 12 Hours) Vital Signs Temp Pulse Pulse Pulse Pulse Resp BP 09/21/22 10:49 74 16 09/21/22 10:07 36.4 C L 71 20 105/71 09/21/22 07:30 55 L 09/21/22 08:00 09/21/22 07:17 71 16 09/21/22 03:06 36.5 C 72 18 104/66 09/21/22 02:10 69 18 09/21/22 00:11 70 09/20/22 23:28 36.6 C 64 18 106/68 Pulse Ox O2 Del Method O2 Flow Rate 09/21/22 10:49 93 Nasal Cannula 2 09/21/22 10:07 90 Nasal Cannula 2 09/21/22 07:30 09/21/22 08:00 Nasal Cannula 2 09/21/22 07:17 93 Nasal Cannula 2 09/21/22 03:06 93 Nasal Cannula 2 09/21/22 02:10 90 Nasal Cannula 2 09/21/22 00:11 09/20/22 23:28 95 Nasal Cannula 4 Laboratory Results Abnormal lab results 09/20/22 09/20/22 09/20/22 Range/Units 14:27 14:27 14:27 WBC (4.8-10.8) K/ul RBC 3.48 L (4.63-6.08) M/uL Hgb 11.3 L (14.0-18.0) g/dl Hct 33.6 L (40.1-51.0) % RDW Std Deviation 47.4 H (36.4-46.3) fL Plt Count 111 L (130-400) K/uL Neut # (Auto) 9.25 H (1.4-6.5) K/uL Lymph # (Auto) 0.20 L (1.2-3.4) K/uL Immature Gran # (Auto) 0.07 H (0.00-0.02) K/uL BUN 45 H (6-23) mg/dl BUN/Creatinine Ratio 33.8 H (10-20) Glucose 143 H (70-99(Fasting)) mg/dl Calcium (8.5-10.1) mg/dl AST 48 H (13-39) U/L Troponin I High Sens 25.7 H (0-20) pg/ml B-Natriuretic Peptide 131 H (0-100) pg/ml Parainfluenza 1 (PCR) (NotDetected) 09/20/22 09/21/22 09/21/22 Range/Units 16:55 08:05 08:05 WBC 11.79 H (4.8-10.8) K/ul RBC 3.33 L (4.63-6.08) M/uL Hgb 10.6 L (14.0-18.0) g/dl Hct 32.0 L (40.1-51.0) % RDW Std Deviation (36.4-46.3) fL Plt Count (130-400) K/uL Neut # (Auto) (1.4-6.5) K/uL Lymph # (Auto) (1.2-3.4) K/uL Immature Gran # (Auto) (0.00-0.02) K/uL BUN 48 H (6-23) mg/dl BUN/Creatinine Ratio 37.8 H (10-20) Glucose 167 H (70-99(Fasting)) mg/dl Calcium 8.3 L (8.5-10.1) mg/dl AST (13-39) U/L Troponin I High Sens (0-20) pg/ml B-Natriuretic Peptide (0-100) pg/ml Parainfluenza 1 (PCR) DETECTED A* (NotDetected)
[2022-09-21] MEDS: cefTRIAXone SODIUM 2,000 MG in DEXTROSE 5% 50 ML IV SCH (20:11)
[2022-09-21] MEDS: ATORVASTATIN 40 MG TAB PO SCH (20:47)
[2022-09-21] MEDS: AZITHROMYCIN 250 MG TAB PO SCH (20:47)
[2022-09-21] MEDS: ENOXAPARIN INJ 40 MG/0.4 ML SYR SQ SCH (20:48)
[2022-09-22] MEDS: ALBUT/IPRATROP 3MG/0.5MG NEB 3 ML VIAL NEB SCH ×6 (02:22→22:22)
[2022-09-22] MEDS: BENZONATATE 100 MG CAPSULE PO PRN ×2 (03:43→12:22)
[2022-09-22 07:09] LABS: Hematocrit (blood only) 32.5 % (40.1-51.0); Hemoglobin 10.9 g/dl (14.0-18.0); Mean Corpuscular Hemoglobin 31.9 pg (25.0-34.0); Mean Corpuscular Hgb Conc 33.5 g/dL (32.0-36.0); Platelet Count 167 K/uL (130-400); RDW Standard Deviation 45.6 fL (36.4-46.3); Red Blood Count 3.42 M/uL (4.63-6.08); White Blood Count 13.16 K/ul (4.8-10.8)
[2022-09-22 07:27] LABS: BUN Creatinine Ratio 36.8 (10-20); Calcium 8.6 mg/dl (8.5-10.1); Creatinine Clr Calc Pharmacy 57.9 ml/min; Est GFR (African American) 70.5 ml/min; Est GFR (Non-African American) 60.8 ml/min
[2022-09-22] MEDS: predniSONE 20 MG TAB PO SCH (08:04)
[2022-09-22] MEDS: lisinopril 20 MG TAB PO SCH (08:04)
[2022-09-22] MEDS: amLODIPine BESYLATE 5 MG TAB PO SCH (08:04)
[2022-09-22] MEDS: CLOPIDOGREL BISULFATE 75 MG TAB PO SCH (08:04)
[2022-09-22] MEDS: METOPROLOL SUCC 25MG EXT REL TAB PO SCH (08:04)
[2022-09-22] MEDS: ASPIRIN 81 MG ECTAB PO SCH (08:05)
[2022-09-22] MEDS: guaiFENesin 600 MG TABCR PO SCH (08:05)
[2022-09-22] MEDS: LORATADINE 10 MG TAB PO SCH (08:05)
[2022-09-22] MEDS: guaiFENesin SUGAR FREE 200 MG/10 ML UDC PO SCH ×2 (13:34→18:29)
--- NOTE | 2022-09-22 16:32 | Hospitalist Progress Note ---
Date of Service September 22, 2022 Assessment & Plan (1) Acute respiratory failure with hypoxemia: (2) Acute bronchitis: (3) Pneumonia: Plan: Recently admitted from 09/17-09/19 with acute bronchitis. Treated with steroid, nebulization. Was discharged home on 2 L of oxygen by nasal cannula. History of similar episode in September 2021 Reported feeling good at home until the next day he developed worsening cough, shortness of breath and chills CXR showed faint right lower lung opacity Pro-Jaziel 0.46 and [id number] Resp PCR was +for Parainfluenza IV Solu-Medrol changed to prednisone 20mg for 4 more days Continue Flutter valve and incentive spirometry. Continue ceftriaxone and azithromycin. Continue neb treatment and guaifenesin Continue oxygen supplement Continue monitor closely (4) Ischemic cardiomyopathy: Plan: Appear compensated. No complaint of chest pain Echo on 08/18- EF of 45-49 % moderate to borderline severe aortic stenosis, mild aortic valv regurg, Continue home aspirin, Plavix, metoprolol, lisinopril. (5) Dyslipidemia: Plan: Continue Lipitor (6) CKD (chronic kidney disease), stage III: Plan: Creatinine at baseline. DVT PPX- lovenox sq Admission and Anticipated Discharge Date Admission Date: September 20, 2022 Subjective Patient was seen and examined for follow up of respiratory failure Lying in bed with no acute distress Pt said that he continues to cough productive of whitish sputum. He said that his breathing slightly improves Denies any chest pain, palpitation, dizziness and fever Review of Systems Review of Systems: All systems reviewed & are unremarkable except as noted in Subjective Physical Exam Physical Exam: General- No acute distress Head- atraumatic Eyes- PERRL, EOMI, ENT- oropharynx clear Neck- supple, no JVD Lungs- +coarse BS Heart- regular rhythm; no murmur Abdomen- normal bowel sounds, soft, nontender Extremities- no calf tenderness Neuro- alert, oriented x 3; PERRL, EOMI; no facial palsy; no dysarthria Skin- warm & dry Results & Data Results & Data ([facility]) Vital Signs (Past 12 Hours) Vital Signs Temp Pulse Pulse Resp BP BP Pulse Ox 09/22/22 15:12 36.7 C 76 18 132/78 91 09/22/22 15:13 73 09/22/22 10:00 09/22/22 14:56 77 18 91 09/22/22 11:45 36.5 C 69 20 123/69 91 09/22/22 11:09 69 16 92 09/22/22 08:44 09/22/22 07:00 58 L 09/22/22 07:35 36.6 C 65 20 118/75 93 09/22/22 07:33 69 18 93 O2 Del Method O2 Flow Rate 09/22/22 15:12 Nasal Cannula 2 09/22/22 15:13 09/22/22 10:00 Room Air 09/22/22 14:56 Nasal Cannula 2 09/22/22 11:45 Nasal Cannula 2 09/22/22 11:09 Nasal Cannula 2 09/22/22 08:44 Nasal Cannula 2 09/22/22 07:00 09/22/22 07:35 Nasal Cannula 2 09/22/22 07:33 Nasal Cannula 2
[2022-09-22] MEDS: cefTRIAXone SODIUM 2,000 MG in DEXTROSE 5% 50 ML IV SCH (20:42)
[2022-09-22] MEDS: ATORVASTATIN 40 MG TAB PO SCH (20:44)
[2022-09-22] MEDS: AZITHROMYCIN 250 MG TAB PO SCH (20:44)
[2022-09-22] MEDS: ENOXAPARIN INJ 40 MG/0.4 ML SYR SQ SCH (20:45)
[2022-09-23] MEDS: guaiFENesin SUGAR FREE 200 MG/10 ML UDC PO SCH ×5 (00:43→15:24)
[2022-09-23] MEDS: BENZONATATE 100 MG CAPSULE PO PRN ×2 (00:45→08:13)
[2022-09-23] MEDS: ALBUT/IPRATROP 3MG/0.5MG NEB 3 ML VIAL NEB SCH ×5 (02:19→22:02)
[2022-09-23 07:33] LABS: Calcium 8.5 mg/dl (8.5-10.1); Est GFR (African American) 79.7 ml/min; Est GFR (Non-African American) 68.8 ml/min
[2022-09-23 08:03] LABS: Estimated Average Glucose 131 mg/dl; Hemoglobin A1C 6.2 % (4.5-5.6)
[2022-09-23] MEDS: ASPIRIN 81 MG ECTAB PO SCH (08:14)
[2022-09-23] MEDS: CLOPIDOGREL BISULFATE 75 MG TAB PO SCH (08:14)
[2022-09-23] MEDS: LORATADINE 10 MG TAB PO SCH (08:14)
[2022-09-23] MEDS: METOPROLOL SUCC 25MG EXT REL TAB PO SCH (08:14)
[2022-09-23] MEDS: amLODIPine BESYLATE 5 MG TAB PO SCH (08:14)
[2022-09-23] MEDS: predniSONE 20 MG TAB PO SCH (08:14)
[2022-09-23] MEDS: lisinopril 20 MG TAB PO SCH (08:14)
--- NOTE | 2022-09-23 14:51 | Hospitalist Progress Note ---
Date of Service September 23, 2022 Assessment & Plan (1) Acute respiratory failure with hypoxemia: (2) Acute bronchitis: (3) Pneumonia: Plan: Recently admitted from 09/17-09/19 with acute bronchitis. Treated with steroid, nebulization. Was discharged home on 2 L of oxygen by nasal cannula. History of similar episode in September 2021 Reported feeling good at home until the next day he developed worsening cough, shortness of breath and chills CXR showed faint right lower lung opacity Pro-Jaziel 0.46 and [id number] Resp PCR was +for Parainfluenza IV Solu-Medrol changed to prednisone 20mg Continue prednisone 20mg daily Continue Flutter valve and incentive spirometry. Continue ceftriaxone and azithromycin. Continue neb treatment and guaifenesin Continue oxygen supplement Currently he is saturated well on RA Will get a 2 step exercise on discharge Continue monitor closely (4) Ischemic cardiomyopathy: Plan: Appear compensated. No complaint of chest pain Echo on 08/18- EF of 45-49 % moderate to borderline severe aortic stenosis, mild aortic valv regurg, Continue home aspirin, Plavix, metoprolol, lisinopril. (5) Dyslipidemia: Plan: Continue Lipitor Hyperglycemia Hgba1c 6.2 Continue monitor BS (6) CKD (chronic kidney disease), stage III: Plan: Creatinine at baseline. DVT PPX- lovenox sq Disposition Plan to discharge home tomorrow Admission and Anticipated Discharge Date Admission Date: September 20, 2022 Subjective Patient was seen and examined for follow up of respiratory failure Lying in bed with no acute distress Pt said that he feels alot better today He is off the oxygen supplement currently He said that his breathing is alot better Denies any chest pain, palpitation, dizziness and fever Review of Systems Review of Systems: All systems reviewed & are unremarkable except as noted in Subjective Physical Exam Physical Exam: General- No acute distress Head- atraumatic Eyes- PERRL, EOMI, ENT- oropharynx clear Neck- supple, no JVD Lungs- +coarse BS Heart- regular rhythm; no murmur Abdomen- normal bowel sounds, soft, nontender Extremities- no calf tenderness Neuro- alert, oriented x 3; PERRL, EOMI; no facial palsy; no dysarthria Skin- warm & dry Results & Data Results & Data ([facility]) Vital Signs (Past 12 Hours) Vital Signs Temp Pulse Pulse Resp BP Pulse Ox O2 Del Method 09/23/22 14:48 74 16 90 Room Air 09/23/22 14:46 71 09/23/22 11:57 36.6 C 72 18 125/74 92 09/23/22 11:38 90 Room Air 09/23/22 10:54 72 18 92 Nasal Cannula 09/23/22 09:10 Nasal Cannula 09/23/22 08:04 36.8 C 88 18 129/78 92 Room Air 09/23/22 07:43 74 18 93 Nasal Cannula 09/23/22 07:05 73 O2 Flow Rate 09/23/22 14:48 09/23/22 14:46 09/23/22 11:57 2 09/23/22 11:38 09/23/22 10:54 1 09/23/22 09:10 2 09/23/22 08:04 09/23/22 07:43 1 09/23/22 07:05
[2022-09-23] MEDS: cefTRIAXone SODIUM 2,000 MG in DEXTROSE 5% 50 ML IV SCH (20:04)
[2022-09-23] MEDS: ENOXAPARIN INJ 40 MG/0.4 ML SYR SQ SCH (20:39)
[2022-09-23] MEDS: AZITHROMYCIN 250 MG TAB PO SCH (20:40)
[2022-09-23] MEDS: ATORVASTATIN 40 MG TAB PO SCH (20:40)
[2022-09-24] MEDS: guaiFENesin SUGAR FREE 200 MG/10 ML UDC PO SCH ×3 (01:20→12:34)
[2022-09-24] MEDS: BENZONATATE 100 MG CAPSULE PO PRN (05:14)
[2022-09-24] MEDS: ALBUT/IPRATROP 3MG/0.5MG NEB 3 ML VIAL NEB SCH (06:59)
--- NOTE | 2022-09-24 07:51 | Discharge Summary ---
Date of Service September 24, 2022 Admission HPI Per Admitting Provider History of ischemic cardiomyopathy with EF of 45%; medically managed, aortic stenosis, hypertension, hyperlipidemia, CKD stage III Recently admitted from 09/17-09/19 with acute bronchitis. Treated with steroid, nebulization. Was discharged home on 2 L of oxygen by nasal cannula. Patient came back to his home yesterday after discharge from the hospital. He was feeling well till this morning. In the morning after his breakfast, patient started to have increasing bouts of cough with white phlegm as well as increasing shortness of breath. He also had chills and was intermittently confused as per his . Reports compliance with the oxygen after discharge. No complaint of chest pain, fever, dizziness, weakness/numbness of any body part, abdominal pain or urinary symptoms. Remote history of smoking in his youth. Admitted last year in September with similar issue; treated with nebulized bronchodilator, IV steroids. He tried inhaled steroids as outpatient but was unable to tolerate it. Admission Exam Per Admitting Provider Constitutional: WD/WN, vitals as above, NAD, sitting up in bed, pleasant, conversing easily Respiratory: Bilateral coarse rhonchi heard; right greater than left. Cardiovascular: RRR, no murmur, no edema Vessels: no JVD or carotid bruit Chest: normal inspection of chest Abdomen: normal bowel sounds, soft, nontender, no hepatosplenomegaly Musculoskeletal: no cyanosis or clubbing, extremities motor strength 5/5 Skin: no rashes, warm and dry normal turgor Neurologic: PERRL, EOMI, accommodation nl, no face palsy, no dysarthria CN's II- XI intact bilaterally and moves all extremities Psychiatric: A+Ox3, euthymic affect Lymphatic: no cervical or axillary lymphadenopathy : deferred Principal Diagnosis (1) Acute respiratory failure with hypoxemia: (2) Acute bronchitis: (3) Pneumonia: (4) Ischemic cardiomyopathy (5) Dyslipidemia: (6) Hyperglycemia (7) CKD (chronic kidney disease), stage III: Discharge Exam General- No acute distress Head- atraumatic Eyes- PERRL, EOMI, ENT- oropharynx clear Neck- supple, no JVD Lungs- +coarse BS Heart- regular rhythm; no murmur Abdomen- normal bowel sounds, soft, nontender Extremities- no calf tenderness Neuro- alert, oriented x 3; PERRL, EOMI; no facial palsy; no dysarthria Skin- warm & dry Discharge Data Allergies Allergy/AdvReac Type Severity Reaction Status Date / Time No Known Allergies Allergy Unknown Unverified 09/20/22 17:16 Consultations 09/20/22 17:31 ED Decision to Admit Stat Ordered Studies Laboratory Results WBC 13.16 K/ul (4.8-10.8) H 09/22/22 06:55 RBC 3.42 M/uL (4.63-6.08) L 09/22/22 06:55 Hgb 10.9 g/dl (14.0-18.0) L 09/22/22 06:55 Hct 32.5 % (40.1-51.0) L 09/22/22 06:55 MCV 95.0 fL (80.0-100.0) 09/22/22 06:55 MCH 31.9 pg (25.0-34.0) 09/22/22 06:55 MCHC 33.5 g/dL (32.0-36.0) 09/22/22 06:55 RDW Std Deviation 45.6 fL (36.4-46.3) 09/22/22 06:55 RDW Coeff of Kaiden 13.0 % (11.5-14.5) 09/22/22 06:55 Plt Count 167 K/uL (130-400) 09/22/22 06:55 MPV 11.0 fL (9.4-12.4) 09/22/22 06:55 Immature Gran % (Auto) 0.7 % 09/20/22 14:27 Neut % (Auto) 91.6 % 09/20/22 14:27 Lymph % (Auto) 2.0 % 09/20/22 14:27 [place] % (Auto) 5.6 % 09/20/22 14:27 Eos % (Auto) 0.0 % 09/20/22 14:27 Baso % (Auto) 0.1 % 09/20/22 14:27 Neut # (Auto) 9.25 K/uL (1.4-6.5) H 09/20/22 14:27 Lymph # (Auto) 0.20 K/uL (1.2-3.4) L 09/20/22 14:27 [place] # (Auto) 0.56 K/uL (0.24-0.82) 09/20/22 14:27 Eos # (Auto) 0.00 K/uL (0-0.50) 09/20/22 14:27 Baso # (Auto) 0.01 K/uL (0-0.2) 09/20/22 14:27 Immature Gran # (Auto) 0.07 K/uL (0.00-0.02) H 09/20/22 14:27 Sodium 139 mmol/L (136-145) 09/23/22 06:15 Potassium 4.0 mmol/L (3.5-5.1) 09/23/22 06:15 Chloride 107 mmol/L (98-107) 09/23/22 06:15 Carbon Dioxide 25 mmol/L (21-32) 09/23/22 06:15 Anion Gap 7 (3-11) 09/23/22 06:15 BUN 36 mg/dl (6-23) H 09/23/22 06:15 Creatinine 1.03 mg/dl (0.6-1.4) 09/23/22 06:15 Est Cr Clr Drug Dosing 64.0 ml/min 09/23/22 06:15 Est GFR ( Amer) 79.7 ml/min 09/23/22 06:15 Est GFR (Non-Af Amer) 68.8 ml/min 09/23/22 06:15 BUN/Creatinine Ratio 35.0 (10-20) H 09/23/22 06:15 Glucose 106 mg/dl (70-99(Fasting)) H 09/23/22 06:15 Estimat Average Glucose 131 mg/dl 09/23/22 06:15 Hemoglobin A1c 6.2 % (4.5-5.6) H 09/23/22 06:15 Calcium 8.5 mg/dl (8.5-10.1) 09/23/22 06:15 Magnesium 2.0 mg/dl (1.7-2.4) 09/20/22 14:27 Total Bilirubin 0.8 mg/dl (0.2-1.0) 09/20/22 14:27 AST 48 U/L (13-39) H 09/20/22 14:27 ALT 43 U/L (7-52) 09/20/22 14:27 Alkaline Phosphatase 92 U/L (34-104) 09/20/22 14:27 Troponin I High Sens 25.7 pg/ml (0-20) H 09/20/22 14:27 B-Natriuretic Peptide 131 pg/ml (0-100) H 09/20/22 14:27 Total Protein 7.1 gm/dl (6.0-8.3) 09/20/22 14:27 Albumin 3.8 gm/dl (3.4-5.0) 09/20/22 14:27 Globulin 3.3 gm/dl (2.5-4.0) 09/20/22 14:27 Albumin/Globulin Ratio 1.2 (0.9-2) 09/20/22 14:27 Lipase 21 U/L (11-82) 09/20/22 14:27 Procalcitonin 0.43 ng/ml (0-0.5) 09/20/22 14:27 TSH 1.876 uIu/ml (0.300-4.500) 09/20/22 14:27 Adenovirus (PCR) Not Detected (NotDetected) 09/20/22 16:55 B. pertussis DNA (PCR) Not Detected (NotDetected) 09/20/22 16:55 B.parapertussis DNA PCR Not Detected (NotDetected) 09/20/22 16:55 C. pneumoniae DNA (PCR) Not Detected (NotDetected) 09/20/22 16:55 Coronavirus OC43 (PCR) Not Detected (NotDetected) 09/20/22 16:55 Coronavirus HKU1 (PCR) Not Detected (NotDetected) 09/20/22 16:55 Coronavirus 229E (PCR) Not Detected (NotDetected) 09/20/22 16:55 SARS-CoV-2 (PCR) Not Detected (NotDetected) 09/20/22 16:55 Coronavirus NL63 (PCR) Not Detected (NotDetected) 09/20/22 16:55 Human Metapneumovir PCR Not Detected (NotDetected) 09/20/22 16:55 Influenza Type A (PCR) Not Detected (NotDetected) 09/20/22 16:55 Influenza Type B (PCR) Not Detected (NotDetected) 09/20/22 16:55 M. pneumoniae (PCR) Not Detected (NotDetected) 09/20/22 16:55 Parainfluenza 1 (PCR) DETECTED (NotDetected) A* 09/20/22 16:55 Parainfluenza 2 (PCR) Not Detected (NotDetected) 09/20/22 16:55 Parainfluenza 3 (PCR) Not Detected (NotDetected) 09/20/22 16:55 Parainfluenza 4 (PCR) Not Detected (NotDetected) 09/20/22 16:55 RSV (PCR) Not Detected (NotDetected) 09/20/22 16:55 Entero/Rhino (PCR) Not Detected (NotDetected) 09/20/22 16:55 Impressions Chest X-Ray 09/20/22 14:18 XR chest 1V portable CLINICAL HISTORY: sob, wheezing TECHNIQUE: Single frontal radiograph of the chest was obtained. Comparison: Comparison is made to chest radiograph 09/19/2022 FINDINGS: No lines and tubes are seen. Cardiomegaly is noted. Faint airspace opacities in the right lower lung. No evidence of pleural effusion or pneumothorax. IMPRESSION: Faint right lower lung airspace opacity which may represent atelectasis, pneumonia, and/or aspiration. ACT 112: Negative or not required by law. Electronically signed by: Shawn Camejo M.D. 09/20/2022 2:43 PM Hospital Course (1) Acute respiratory failure with hypoxemia: (2) Acute bronchitis: (3) Pneumonia: Possible Parainfluenza virus pneumonia Recently admitted from 09/17-09/19 with acute bronchitis. Treated with steroid, nebulization. Was discharged home on 2 L of oxygen by nasal cannula. History of similar episode in September 2021 Reported feeling good at home until the next day he developed worsening cough, shortness of breath and chills CXR showed faint right lower lung opacity Pro-Jaziel 0.46 and [id number] Resp PCR was +for Parainfluenza IV Solu-Medrol changed to prednisone 20mg Continue prednisone 20mg daily Continue Flutter valve and incentive spirometry. Continue ceftriaxone and azithromycin. Continue neb treatment and guaifenesin Continue oxygen supplement Currently he is saturated well on RA 2 step exercise done before discharge and pt did not qualify for oxygen supplement at rest or with ambulation Continue monitor closely (4) Ischemic cardiomyopathy: Appear compensated. No complaint of chest pain Echo on 08/18- EF of 45-49 % moderate to borderline severe aortic stenosis, mild aortic valv regurg, Continue home aspirin, Plavix, metoprolol, lisinopril. (5) Dyslipidemia: Continue Lipitor Hyperglycemia Hgba1c 6.2 Continue monitor BS (6) CKD (chronic kidney disease), stage III: Creatinine at baseline. DVT PPX- lovenox sq Disposition Plan to discharge home today Total Time Total Time Spent Total Time Spent (In Minutes): 35 minutes Discharge Plan Discharge Items Patient Disposition: Home - Self-Care Reason For Visit: PNEUMONIA Discharge Diagnosis: (1) Acute respiratory failure with hypoxemia: (2) Acute bronchitis: (3) Pneumonia: Activity: Resume your previous activity Non-emergency contact: Primary Care Provider Call non-emergency contact if: you have any medication questions, your symptoms worsen and your temperature is above 101 Follow-up/Referrals: Sai Mason MD [Primary Care Provider] - (Date & Time 09/28/2022 11:00 AM Provider Sai Mason MD Department [facility] ) Diet: Heart Healthy Addtl Attending Provider Instructions: You came to the hospital complaining of cough, congestion and shortness of breath. You were evaluated and found to have pnemonia and tested positive for parainfluenza virus You were given treatment. Your symptoms are improving and you were titrated off oxygen supplement You are being discharged on some medications to help with your symptoms Please ensure follow up with your Primary Doctor Dr. Mason on 09/28/2022 @ 11:00 AM Please seek medical attention if your symptoms reoccur Pending Studies at Discharge: No Stand-Alone Forms: My [employer], Smoking Cessation Medications and DC Order Prescriptions: New prednisone 20 mg Tablet 20 mg PO DAILY Qty: 2 0RF azithromycin 500 mg tablet 500 mg PO HS 3 Days Qty: 3 0RF ipratropium-albuterol 0.5 mg-3 mg(2.5 mg base)/3 mL Solution For Nebulization 3 ml NEB Q6H PRN (Reason: sob/wheezing) Qty: 90 0RF Continued lisinopril 20 mg tablet 20 mg PO QAM clopidogrel 75 mg tablet 75 mg PO DAILY nitroglycerin 0.4 mg tablet, sublingual 0.4 mg sublingual UD PRN (Reason: Chest Pain) Rx Instructions: Take one nitro every 5 minutes up to three doses as needed for chest pain metoprolol succinate 25 mg tablet extended release 24 hr 25 mg PO QAM benzonatate 100 mg Capsule 100 mg PO TID Qty: 15 0RF loratadine [Wal-itin] 10 mg Tablet 10 mg PO QAM Qty: 6 0RF amlodipine 5 mg tablet 5 mg PO QAM atorvastatin 40 mg tablet 80 mg PO PM aspirin 81 mg tablet,delayed release (DR/EC) 81 mg PO QAM acetaminophen [Tylenol Extra Strength] 500 mg Tablet 1,000 mg PO Q6H PRN (Reason: Pain) Discharge Orders: Discharge Order (Routine); Ordered 09/24/22 Ordered By: Jeanette Amos/Other Patient Handouts: Prediabetes, 5 Steps for Eating Healthier, ED Shortness of Breath (Dyspnea) Admission Data Admit Date/Time: 09/20/22 18:00 Attending Provider: Jeanette Field Admit Provider: Kendell Faye Primary Care Provider: Sai Mason Other Providers: Kendell Faye ; Zoe Parker I. Other Interventions: Discharge Summary Assessment (RN) Last Done: 09/24/22 12:35
[2022-09-24] MEDS: amLODIPine BESYLATE 5 MG TAB PO SCH (08:40)
[2022-09-24] MEDS: METOPROLOL SUCC 25MG EXT REL TAB PO SCH (08:40)
[2022-09-24] MEDS: CLOPIDOGREL BISULFATE 75 MG TAB PO SCH (08:41)
[2022-09-24] MEDS: lisinopril 20 MG TAB PO SCH (08:41)
[2022-09-24] MEDS: LORATADINE 10 MG TAB PO SCH (08:41)
[2022-09-24] MEDS: ASPIRIN 81 MG ECTAB PO SCH (08:41)
[2022-09-24] MEDS: predniSONE 20 MG TAB PO SCH (08:41)
== END 2022-09-24 13:18 | disposition home or self-care (01) | DRG 193 ==
LOC: ED 13:07 → 2N 18:00 → SUATTDRO 18:00 → INTOOBSV 18:00 → 2N 20:19 → 2W 21:07

== ENCOUNTER 2022-11-06 16:38 | Observation (INO) ==
[2022-11-06] MEDS ORDERED: SODIUM CHLORIDE 0.9% 1000ML 1,000 ML IV ONE (17:33)
--- NOTE | 2022-11-06 17:52 | XRay Report ---
SINGLE VIEW CHEST CLINICAL HISTORY: Hypotension. FINDINGS: An AP, portable, upright chest radiograph is compared to study dated 09/20/2022 and correla vincenzo with chest CT dated 09/17/2022. The heart is enlarged. The pulmonary vasculature is noncontrast. Foci of parenchymal scarring are seen throughout both lungs. Scarring/atelectasis is also seen at the right lung base. No airspace consolidation or large pleural effusion is identified. No pneumothorax is seen. The skeletal structures are osteopenic. The bony thorax is grossly intact. IMPRESSION: Cardiomegaly with no acute cardiopulmonary abnormality. ACT 112: Negative or not required by law. Electronically signed by: Naman Mann M.D. 11/06/2022 5:51 PM
--- NOTE | 2022-11-06 18:18 | Emergency Department Note ---
History of Present Illness General Chief complaint: Illness Time Seen by Provider: 11/06/22 16:54 Source: patient Mode of arrival: EMS Limitations: other (poor memory/recall of events) History of Present Illness Provider complaint: Diarrhea, syncope This is a 81-year-old male brought in by EMS due to family's concern for syncopal episode while seated on the toilet. Patient did not fall off the toilet per 's report to EMS, she heard a sound and found him slumped over against the sink while still seated on the toilet. Patient was hypotensive for EMS in route and initial blood pressures here in the emergency room were low also. Patient states he has had diarrhea today, denies noting any blood in the stool, does not recall the episode of syncope. He denies any abdominal pain, fevers, nausea or vomiting. He denies chest pain, palpitations, or trouble breathing. Home Medications Medication Instructions Recorded Confirmed Type amlodipine 5 mg tablet 5 mg PO QAM 05/13/21 09/20/22 History acetaminophen 500 mg tablet 1,000 mg PO Q6H PRN Pain 10/10/21 09/20/22 History (Tylenol Extra Strength) aspirin 81 mg tablet,delayed 81 mg PO QAM 10/10/21 09/20/22 History release atorvastatin 40 mg tablet 80 mg PO PM 10/10/21 09/20/22 History clopidogrel 75 mg tablet 75 mg PO DAILY 09/17/22 09/20/22 History lisinopril 20 mg tablet 20 mg PO QAM 09/17/22 09/20/22 History metoprolol succinate 25 mg 25 mg PO QAM 09/17/22 09/20/22 History tablet,extended release 24 hr nitroglycerin 0.4 mg sublingual 0.4 mg sublingual UD PRN Chest Pain 09/17/22 09/20/22 History tablet benzonatate 100 mg capsule 100 mg PO TID #15 caps 09/19/22 09/20/22 Rx loratadine 10 mg tablet (Wal-itin) 10 mg PO QAM #6 tabs 09/19/22 09/20/22 Rx ipratropium 0.5 mg-albuterol 3 mg 3 ml NEB Q6H PRN sob/wheezing #90 09/24/22 Rx (2.5 mg base)/3 mL nebulization mL soln prednisone 20 mg tablet 20 mg PO DAILY #2 tabs 09/24/22 Rx Allergies Allergy/AdvReac Type Severity Reaction Status Date / Time No Known Allergies Allergy Unknown Unverified 09/20/22 17:16 Past Med/Surg History Medical History CAD (coronary artery disease) CKD (chronic kidney disease), stage III Dyslipidemia HTN (hypertension) with goal to be determined Moderate aortic stenosis Surgical History H/O lithotripsy History of cataract surgery S/P cardiac catheterization Family History Sister Heart disease Brother Heart disease Social History Smoking Status: Former smoker Tobacco Type: Cigars Second Hand Exposure: No; Hx Alcohol Use: Yes Alcohol type: hard liquor Hx Substance Use: No Preferred Language: Korean Communication Ability: Effective Court Commissioner Required: No Beliefs That Will Affect Care: None marital status: Current Living Situation: Spouse Feels Safe at Home: Yes Assistive Devices: Oxygen - Continuous and Walker Review of Systems A total of 10 systems reviewed and were otherwise negative All systems reviewed & are unremarkable except as noted in HPI & below Physical Exam Vital Signs Vital Signs - 24 hr 11/06/22 17:12 11/06/22 17:12 11/06/22 19:00 Temperature 36.4 C L Temperature Source Oral Pulse Rate 68 Pulse Rate [Apical] 68 67 Pulse Rhythm [Apical] Regular Pulse Strength [Apical] Normal Respiratory Rate 16 20 Respiratory Effort / Characteristics Non-Labored Respiratory Depth Normal Respiratory Pattern Regular Blood Pressure 77/41 L Blood Pressure [Left Arm] 127/55 L Blood Pressure Mean 53 Blood Pressure Mean [Left Arm] 79 Blood Pressure Position [Left Arm] Lying Pulse Oximetry 99 95 Oxygen Delivery Method Nasal Cannula Room Air Oxygen Flow Rate 2 Sepsis Recent Fever Within 48 Hours No Sepsis New/Unexplained Change in Mental Status No Sepsis Action Taken by Nursing No Action Required GENERAL: alert, unwell appearing, well nourished, no distress, non-toxic EYE EXAM: normal conjunctiva, PERRL and EOM's grossly intact OROPHARYNX: no exudate, no erythema, lips, buccal mucosa, and tongue normal and mucous membranes are dry NECK: supple, no nuchal rigidity, no adenopathy, non-tender LUNGS: Clear to auscultation. Normal chest wall mechanics, no w/r/r HEART: PERLITA noted, S1 normal and S2 normal ABDOMEN: abdomen soft, mild abd discomfort with palpation, normo-active bowel sounds, no masses, no rebound or guarding. BACK: Back is symmetrical on inspection and there is no deformity, no midline tenderness, no CVA tenderness. SKIN: no rashes and no bruising UPPER EXTREMITIES: upper extremities are grossly normal. FROM, nml pulses b/l. LOWER EXTREMITIES: No pitting edema. FROM, nml pulses b/l. NEURO EXAM: Normal sensorium, cranial nerves II-XII grossly intact, normal speech, no gross weakness of arms, no gross weakness of legs. Gross sensation intact. Course Course 1710: BP improving on IVF. 1743: BP continued to improve. 1810: Patient's blood pressure continues to improve with IV fluids. His overall appearance is improved compared to my initial exam. I updated patient's at bedside. states he had been having diarrhea since Tuesday. Has had minimal intake, but continues to take his routine medications which do include an antihypertensive medication. She states he is had multiple episodes of diarrhea daily. She states today he went up to have a bowel movement and she heard a thud and went to the bathroom and found him leaning to the side against the sink while still seated on the commode. She states she called for a neighbor and called 911. She was able to set him back up and he did slowly come around although seemed initially groggy. She states when EMS checked his blood pressure they told her it was low. Administered Medications Discontinued Medications Sodium Chloride (Nss 1000ml) 1,000 mls @ 999 mls/hr IV .Q1H1M ONE Stop: 11/06/22 18:33 Last Infusion: 11/06/22 19:27 Dose: 0 mls/hr Documented By: Admin: 11/06/22 17:51 Dose: 999 mls/hr Documented By: RAI Sodium Chloride (Nss 1000ml) 1,000 mls @ 999 mls/hr IV .Q1H1M OPAL Stop: 11/06/22 20:24 Last Infusion: 11/06/22 20:33 Dose: 0 mls/hr Documented By: Admin: 11/06/22 19:26 Dose: 999 mls/hr Documented By: RAI Ioversol (Optiray 350 100ml) 88 ml IV ONCE ONE Stop: 11/06/22 19:49 Last Admin: 11/06/22 19:49 Dose: 88 ml Documented By: JAN Critical Care Time Critical Care Time: Yes Total Critical Care Time: 39 Critical care of 39 min performed to assess and manage high likelihood of life- threatening hypotension involving labs and imaging performed with assessment to evaluate hypotension and syncope diagnosis with frequent reassessment. This time includes bedside time, treatment discussions with patient/fami ly/consultants, documentation time and excludes procedure time. Medical Decision Making Differential Diagnosis Differential diagnosis includes etiologies such as vasovagal event, infection, hypoglycemia, electrolyte abnormalities, cardiac sources, intracerebral event, toxicologic, neurologic, as well as others were entertained. Medical Records Attestation: I reviewed the patient's medical records. Home Medications Current Medication List: was personally reviewed by me Laboratory Data Attestation: I reviewed the patient's lab results. Result diagrams: 11/06/22 18:35 11/06/22 17:09 Lab Results 11/06/22 11/06/22 11/06/22 Range/Units 17:09 17:09 18:35 WBC 6.94 (4.8-10.8) K/ul RBC 4.07 L (4.63-6.08) M/uL Hgb 12.9 L (14.0-18.0) g/dl Hct 39.0 L (40.1-51.0) % MCV 95.8 (80.0-100.0) fL MCH 31.7 (25.0-34.0) pg MCHC 33.1 (32.0-36.0) g/dL RDW Std Deviation 46.7 H (36.4-46.3) fL RDW Coeff of Kaiden 13.2 (11.5-14.5) % Plt Count 107 L (130-400) K/uL MPV 11.3 (9.4-12.4) fL Immature Gran % (Auto) 0.3 % Neut % (Auto) 84.6 % Lymph % (Auto) 8.9 % Casey % (Auto) 5.8 % Eos % (Auto) 0.3 % Baso % (Auto) 0.1 % Neut # (Auto) 5.87 (1.4-6.5) K/uL Lymph # (Auto) 0.62 L (1.2-3.4) K/uL Casey # (Auto) 0.40 (0.24-0.82) K/uL Eos # (Auto) 0.02 (0-0.50) K/uL Baso # (Auto) 0.01 (0-0.2) K/uL Immature Gran # (Auto) 0.02 (0.00-0.02) K/uL Platelet Estimate Decreased L (Normal) Sodium 136 (136-145) mmol/L Potassium 4.0 (3.5-5.1) mmol/L Chloride 104 (98-107) mmol/L Carbon Dioxide 22 (21-32) mmol/L Anion Gap 10 (3-11) BUN 32 H (6-23) mg/dl Creatinine 1.35 (0.6-1.4) mg/dl Est Cr Clr Drug Dosing 49.5 ml/min Est GFR ( Amer) 57.5 ml/min Est GFR (Non-Af Amer) 49.6 ml/min BUN/Creatinine Ratio 23.7 H (10-20) Glucose 140 H (70-99(Fasting)) mg/dl Lactate (0.4-2.0) mmol/L Calcium 8.3 L (8.5-10.1) mg/dl Magnesium 2.0 (1.7-2.4) mg/dl Total Bilirubin 0.6 (0.2-1.0) mg/dl AST 35 (13-39) U/L ALT 26 (7-52) U/L Alkaline Phosphatase 93 (34-104) U/L Total Protein 6.3 (6.0-8.3) gm/dl Albumin 3.3 L (3.4-5.0) gm/dl Globulin 3.0 (2.5-4.0) gm/dl Albumin/Globulin Ratio 1.1 (0.9-2) Lipase 21 (11-82) U/L Procalcitonin 0.35 (0-0.5) ng/ml // Range/Units 18:35 WBC (4.8-10.8) K/ul RBC (4.63-6.08) M/uL Hgb (14.0-18.0) g/dl Hct (40.1-51.0) % MCV (80.0-100.0) fL MCH (25.0-34.0) pg MCHC (32.0-36.0) g/dL RDW Std Deviation (36.4-46.3) fL RDW Coeff of Kaiden (11.5-14.5) % Plt Count (130-400) K/uL MPV (9.4-12.4) fL Immature Gran % (Auto) % Neut % (Auto) % Lymph % (Auto) % Casey % (Auto) % Eos % (Auto) % Baso % (Auto) % Neut # (Auto) (1.4-6.5) K/uL Lymph # (Auto) (1.2-3.4) K/uL Casey # (Auto) (0.24-0.82) K/uL Eos # (Auto) (0-0.50) K/uL Baso # (Auto) (0-0.2) K/uL Immature Gran # (Auto) (0.00-0.02) K/uL Platelet Estimate (Normal) Sodium (136-145) mmol/L Potassium (3.5-5.1) mmol/L Chloride (98-107) mmol/L Carbon Dioxide (21-32) mmol/L Anion Gap (3-11) BUN (6-23) mg/dl Creatinine (0.6-1.4) mg/dl Est Cr Clr Drug Dosing ml/min Est GFR ( Amer) ml/min Est GFR (Non-Af Amer) ml/min BUN/Creatinine Ratio (10-20) Glucose (70-99(Fasting)) mg/dl Lactate 1.9 (0.4-2.0) mmol/L Calcium (8.5-10.1) mg/dl Magnesium (1.7-2.4) mg/dl Total Bilirubin (0.2-1.0) mg/dl AST (13-39) U/L ALT (7-52) U/L Alkaline Phosphatase (34-104) U/L Total Protein (6.0-8.3) gm/dl Albumin (3.4-5.0) gm/dl Globulin (2.5-4.0) gm/dl Albumin/Globulin Ratio (0.9-2) Lipase (11-82) U/L Procalcitonin (0-0.5) ng/ml Imaging Data Radiologist's Impression: Abdomen/Pelvis CT 11/06/22 17:33 CT SCAN OF THE ABDOMEN AND PELVIS WITH IV CONTRAST CLINICAL HISTORY: Generalized abdominal pain. Hypotension. COMPARISON STUDY: Chest CT dated 09/17/2022. TECHNIQUE: Following the IV administration of 88 cc of Optiray 350, CT scan of the abdomen and pelvis is performed from the lung bases to the proximal femora. Images are reviewed in the axial, sagittal, and coronal planes. IV contrast was administered without complication. A dose lowering technique was utilized adhering to the principles of ALARA. FINDINGS: Lung bases: The heart is enlarged and without pericardial effusion. The aortic valve leaflets are densely calcified. There are also coronary artery calcifications. A 1.7 cm irregular nodular opacity in the right middle lobe seen on image #35 is new from 09/17/2022 and likely inflammatory. Minimal patchy consolidation is seen at the left lung base. No pleural effusion is identified. A small hiatal hernia is noted. Liver: The contrast-enhanced liver is normal in size, contour, and attenuation. There is no intrahepatic biliary ductal dilatation. The hepatic veins and portal veins are patent. Gallbladder: The gallbladder is distended and otherwise normal appearance. Spleen: Normal in size and attenuation. Pancreas: Atrophic and grossly unremarkable. Adrenal glands: Unremarkable. Kidneys: The contrast enhanced kidneys demonstrate cortical atrophy and are without hydronephrosis. The kidneys enhance symmetrically. A 1.5 cm cyst is noted in the left kidney. Additional subcentimeter cortical hypodensities also likely represent cysts but are too small for definitive catheterization. Small renal sinus cysts are also seen bilaterally. Abdominal vasculature: The abdominal aorta is normal in course and caliber noting mild/moderate atherosclerotic calcification. Bowel: There is wall thickening and edema with mucosal hyperemia seen from the colon with surrounding inflammation and fluid. This extends from the ascending colon to the sigmoid. There are also thick-walled and hyperemic loops of small bowel. There is no pneumatosis intestinalis or portal venous gas. There is mild colonic diverticulosis without CT evidence of acute diverticulitis. No bowel obstruction is seen. The appendix is well-visualized and normal. Peritoneum: There is trace perihepatic ascites, as well as a small volume pelvic ascites. No intraperitoneal free air is seen. There is a fat-containing umbilical hernia. Lymphadenopathy: None. Pelvic viscera: The prostate gland is mildly enlarged and heterogeneous. The bl adder wall is thickened/trabeculated indicating chronic outlet obstruction. Skeletal structures: The skeletal structures are osteopenic. There is mild lumbosacral spondylosis. No lytic or blastic lesions are seen. IMPRESSION: 1. There is diffuse wall thickening with mucosal edema and hyperemia seen involving the small bowel and colon as above. There is surrounding inflammation and fluid, and the appearance is consistent with a nonspecific enterocolitis. This could potentially related to hypoperfusion given the reported history of hypotension. Clinical correlation will be essential. The mesenteric vessels are well opacified and widely patent. 2. There is a small volume of abdominopelvic ascites. 3. No intraperitoneal free air is identified. There is no pneumatosis intestinalis or portal venous gas. 4. Cardiomegaly. 5. A 1.7 cm irregular airspace opacity in the right middle lobe is new from 09/17/2022, and there is minimal patchy consolidation at the left lung base. Correlate clinically for evidence of an infectious/inflammatory pneumonitis. A follow-up chest CT in 3-4 months time is recommended to document resolution. 6. Additional findings as above. ACT 112: Negative or not required by law. Electronically signed by: Naman Mann M.D. 11/06/2022 8:14 PM Chest X-Ray 11/06/22 17:34 SINGLE VIEW CHEST CLINICAL HISTORY: Hypotension. FINDINGS: An AP, portable, upright chest radiograph is compared to study dated 09/20/2022 and correlated with chest CT dated 09/17/2022. The heart is enlarged. The pulmonary vasculature is noncontrast. Foci of parenchymal scarring are seen throughout both lungs. Scarring/atelectasis is also seen at the right lung base. No airspace consolidation or large pleural effusion is identified. No pneumoth orax is seen. The skeletal structures are osteopenic. The bony thorax is grossly intact. IMPRESSION: Cardiomegaly with no acute cardiopulmonary abnormality. ACT 112: Negative or not required by law. Electronically signed by: Naman Mann M.D. 11/06/2022 5:[address] 11/06/22 18:20 CT SCAN OF THE BRAIN WITHOUT IV CONTRAST CLINICAL HISTORY: Syncope. COMPARISON STUDY: No priors. TECHNIQUE: Unenhanced axial CT scan of the brain is performed from the vertex to the skull base. A dose lowering technique was utilized adhering to the principles of ALARA. CT DOSE: 1571.52 mGy.cm FINDINGS: Brain parenchyma: There is age-related involutional change noting moderate subcortical and periventricular microangiopathic disease. There is no hemorrh age, mass effect, or evidence of acute territorial ischemia by CT criteria. Carlson-white matter differentiation is preserved. No extra-axial fluid collection is seen. Ventricles, sulci, cisterns: Prominent secondary to involutional change. Intracranial vasculature: There is atherosclerotic calcification of the cavernous carotid and vertebral arteries. Calvarium: The skeletal structures are osteopenic. No depressed calvarial fracture is seen. Sinuses and mastoids: A 1 cm retention cyst is partially visualized in the right maxillary antrum. The remaining visualized paranasal sinuses are clear. There is a right mastoid effusion. The left mastoid air cells are well pneumatized. Orbits: The bony orbits are grossly intact. There are bilateral ocular lens implants. IMPRESSION: There is no hemorrhage, mass effect, or evidence of acute territorial ischemia by CT criteria. ACT 112: Negative or not required by law. Electronically signed by: Naman Mann M.D. 11/06/2022 8:03 PM ECG Data Attestation: I personally reviewed and interpreted this ECG as follows: Indication: + syncope and + weakness Rate (beats per minute): 71 Rhythm: + normal sinus ECG Intervals/blocks: + Normal QRS and + Normal QT ECG [place]: + Normal ECG ST segments: + Nonspecific ST abnormalities ECG Findings: + PVCs MDM Narrative An order was placed for continuous cardiac monitoring. The monitor shows a rate of _75__ with _normal sinus__ rhythm. This is a 81-year-old male brought in by EMS due to concern for syncopal event while seated on the toilet and accompanying hypotension. Patient found to be markedly hypotensive on arrival here. Patient had been started on IV fluids by EMS, approximately 500 given in route. IV fluid bolus given here and blood pressure began to improve. Patient became brighter and more alert with this. Patient otherwise afebrile, no dysrhythmia noted on telemetry. Patient with mild abdominal tenderness on exam, otherwise appeared clinically dehydrated. Upon adding to history including 4 days of multiple daily episodes of diarrhea, decreased oral intake, and continued use of his medication including an antihypertensive, I suspect this was the reason for the patient's hypotension here. Patient's other labs reassuring including negative procalcitonin and lactic acid. I do not suspect septic shock. CT of the head and abdomen and pelvis were reassuring, enterocolitis was noted. This time I do not suspect acute cardiac etiology of the hypotension, acute vascular emergency, sepsis, or hemorrhagic shock. I do not suspect acute [employer] emergency. Patient was given a second liter of IV fluids in the emergency room and continued to remain stable. Patient and family updated on results. Case discussed with hospitalist for additional evaluation and management. Stool culture and COVID swab still pending at the time of our discussion. Impression & Plan Hypotension, Syncope, Diarrhea, Generalized weakness Discharge Plan Visit Data Chief Complaint: Illness ED Provider: Tracee Cornelius Discharge Problem: Hypotension, Syncope, Diarrhea, Generalized weakness Forms Stand Alone Forms: [facility] Prescriptions Prescriptions: No Action lisinopril 20 mg tablet 20 mg PO QAM clopidogrel 75 mg tablet 75 mg PO DAILY nitroglycerin 0.4 mg tablet, sublingual 0.4 mg sublingual UD PRN (Reason: Chest Pain) Rx Instructions: Take one nitro every 5 minutes up to three doses as needed for chest pain metoprolol succinate 25 mg tablet extended release 24 hr 25 mg PO QAM benzonatate 100 mg Capsule 100 mg PO TID Qty: 15 0RF loratadine [Wal-itin] 10 mg Tablet 10 mg PO QAM Qty: 6 0RF amlodipine 5 mg tablet 5 mg PO QAM atorvastatin 40 mg tablet 80 mg PO PM aspirin 81 mg tablet,delayed release (DR/EC) 81 mg PO QAM acetaminophen [Tylenol Extra Strength] 500 mg Tablet 1,000 mg PO Q6H PRN (Reason: Pain) prednisone 20 mg Tablet 20 mg PO DAILY Qty: 2 0RF ipratropium-albuterol 0.5 mg-3 mg(2.5 mg base)/3 mL Solution For Nebulization 3 ml NEB Q6H PRN (Reason: sob/wheezing) Qty: 90 0RF Referrals Referrals: Sai Mason MD [Primary Care Provider] -
[2022-11-06 19:01] LABS: Albumin Globulin Ratio 1.1 (0.9-2); Albumin Level 3.3 gm/dl (3.4-5.0); BUN Creatinine Ratio 23.7 (10-20); Bilirubin,Total 0.6 mg/dl (0.2-1.0); Calcium 8.3 mg/dl (8.5-10.1); Creatinine Clr Calc Pharmacy 49.5 ml/min; Est GFR (African American) 57.5 ml/min; Est GFR (Non-African American) 49.6 ml/min; Total Protein 6.3 gm/dl (6.0-8.3)
[2022-11-06] MEDS ORDERED: SODIUM CHLORIDE 0.9% 1000ML 1,000 ML IV SCH (19:24)
[2022-11-06] MEDS ORDERED: OPTIRAY 350 100ml IV ONE (19:48)
[2022-11-06 19:58] LABS: Hemoglobin 12.9 g/dl (14.0-18.0); Mean Corpuscular Hemoglobin 31.7 pg (25.0-34.0); Mean Corpuscular Hgb Conc 33.1 g/dL (32.0-36.0); Mean Corpuscular Volume 95.8 fL (80.0-100.0); Mean Platelet Volume 11.3 fL (9.4-12.4); Platelet Count 107 K/uL (130-400); RDW Coefficient of Variation 13.2 % (11.5-14.5); RDW Standard Deviation 46.7 fL (36.4-46.3); Red Blood Count 4.07 M/uL (4.63-6.08); White Blood Count 6.94 K/ul (4.8-10.8)
--- NOTE | 2022-11-06 20:05 | CT Scan Report ---
CT SCAN OF THE BRAIN WITHOUT IV CONTRAST CLINICAL HISTORY: Syncope. COMPARISON STUDY: No priors. TECHNIQUE: Unenhanced axial CT scan of the brain is performed from the vertex to the skull base. A do se lowering technique was utilized adhering to the principles of ALARA. CT DOSE: 1571.52 mGy.cm FINDINGS: Brain parenchyma: There is age-related involutional change noting moderate subcortical and periventri cular microangiopathic disease. There is no hemorrhage, mass effect, or evidence of acute territorial ischemia by CT criteria. Carlson-white matter differentiation is preserved. No extra-axial fluid collec tion is seen. Ventricles, sulci, cisterns: Prominent secondary to involutional change. Intracranial vasculature: There is atherosclerotic calcification of the cavernous carotid and vertebr al arteries. Calvarium: The skeletal structures are osteopenic. No depressed calvarial fracture is seen. Sinuses and mastoids: A 1 cm retention cyst is partially visualized in the right maxillary antrum. Th e remaining visualized paranasal sinuses are clear. There is a right mastoid effusion. The left masto id air cells are well pneumatized. Orbits: The bony orbits are grossly intact. There are bilateral ocular lens implants. IMPRESSION: There is no hemorrhage, mass effect, or evidence of acute territorial ischemia by CT juan francisco sorto. ACT 112: Negative or not required by law. Electronically signed by: Naman Mann M.D. 11/06/2022 8:03 PM
--- NOTE | 2022-11-06 20:17 | CT Scan Report ---
CT SCAN OF THE ABDOMEN AND PELVIS WITH IV CONTRAST CLINICAL HISTORY: Generalized abdominal pain. Hypotension. COMPARISON STUDY: Chest CT dated 09/17/2022. TECHNIQUE: Following the IV administration of 88 cc of Optiray 350, CT scan of the abdomen and pelvi s is performed from the lung bases to the proximal femora. Images are reviewed in the axial, sagittal , and coronal planes. IV contrast was administered without complication. A dose lowering technique wa s utilized adhering to the principles of ALARA. FINDINGS: Lung bases: The heart is enlarged and without pericardial effusion. The aortic valve leaflets are den sely calcified. There are also coronary artery calcifications. A 1.7 cm irregular nodular opacity in the right middle lobe seen on image #35 is new from 09/17/2022 and likely inflammatory. Minimal patch y consolidation is seen at the left lung base. No pleural effusion is identified. A small hiatal raoul ia is noted. Liver: The contrast-enhanced liver is normal in size, contour, and attenuation. There is no intrahepa tic biliary ductal dilatation. The hepatic veins and portal veins are patent. Gallbladder: The gallbladder is distended and otherwise normal appearance. Spleen: Normal in size and attenuation. Pancreas: Atrophic and grossly unremarkable. Adrenal glands: Unremarkable. Kidneys: The contrast enhanced kidneys demonstrate cortical atrophy and are without hydronephrosis. T he kidneys enhance symmetrically. A 1.5 cm cyst is noted in the left kidney. Additional subcentimeter cortical hypodensities also likely represent cysts but are too small for definitive catheterization. Small renal sinus cysts are also seen bilaterally. Abdominal vasculature: The abdominal aorta is normal in course and caliber noting mild/moderate ather osclerotic calcification. Bowel: There is wall thickening and edema with mucosal hyperemia seen from the colon with surrounding inflammation and fluid. This extends from the ascending colon to the sigmoid. There are also thick-w alled and hyperemic loops of small bowel. There is no pneumatosis intestinalis or portal venous gas. There is mild colonic diverticulosis without CT evidence of acute diverticulitis. No bowel obstructio n is seen. The appendix is well-visualized and normal. Peritoneum: There is trace perihepatic ascites, as well as a small volume pelvic ascites. No intraper itoneal free air is seen. There is a fat-containing umbilical hernia. Lymphadenopathy: None. Pelvic viscera: The prostate gland is mildly enlarged and heterogeneous. The bladder wall is thickene d/trabeculated indicating chronic outlet obstruction. Skeletal structures: The skeletal structures are osteopenic. There is mild lumbosacral spondylosis. N o lytic or blastic lesions are seen. IMPRESSION: 1. There is diffuse wall thickening with mucosal edema and hyperemia seen involving the small bowel a nd colon as above. There is surrounding inflammation and fluid, and the appearance is consistent with a nonspecific enterocolitis. This could potentially related to hypoperfusion given the reported hist ory of hypotension. Clinical correlation will be essential. The mesenteric vessels are well opacifie d and widely patent. 2. There is a small volume of abdominopelvic ascites. 3. No intraperitoneal free air is identified. There is no pneumatosis intestinalis or portal venous g as. 4. Cardiomegaly. 5. A 1.7 cm irregular airspace opacity in the right middle lobe is new from 09/17/2022, and there is minimal patchy consolidation at the left lung base. Correlate clinically for evidence of an infectiou s/inflammatory pneumonitis. A follow-up chest CT in 3-4 months time is recommended to document resolu tion. 6. Additional findings as above. ACT 112: Negative or not required by law. Electronically signed by: Naman Mann M.D. 11/06/2022 8:14 PM
[2022-11-06 20:50] LABS: Basophils # (auto) 0.01 K/uL (0-0.2); Basophils % (auto) 0.1 %; Eosinophils # (auto) 0.02 K/uL (0-0.50); Eosinophils % (auto) 0.3 %; Immature Granulocytes # (auto) 0.02 K/uL (0.00-0.02); Immature Granulocytes % (auto) 0.3 %; Lymphocytes # (auto) 0.62 K/uL (1.2-3.4); Lymphocytes % (auto) 8.9 %; Monocytes % (auto) 5.8 %; Neutrophils # (auto) 5.87 K/uL (1.4-6.5); Neutrophils % (auto) 84.6 %; Platelet Estimate Decreased (Normal)
[2022-11-06 21:16] LABS: Influenza A virus by PCR Negative (Neg); Influenza B virus by PCR Negative (Neg); RSV by PCR Negative (Neg); SARS CoV2 RNA(COVID-19) Ceph NEGATIVE (Negative)
--- NOTE | 2022-11-06 22:12 | History & Physical Report ---
Date of Service November 06, 2022 Assessment & Plan (1) Near syncope: Plan: Likely secondary to orthostasis given hypotension at home and upon arrival at the ER Secondary illness rule out C. difficile given recent antibiotic Rx Enterocolitis on CT chronic systolic heart failure (EF 45 to 49%, TTE 2021) ischemic cardiomyopathy, patient on the dry side hx CAD valvular heart disease (moderate , mild AR on recent outpatient TTE) hyperlipidemia on statin Rx Prediabetes, hemoglobin A1c of 6.2 last September 2022 past tobacco abuse OBS Medical telemetry Gentle IV hydration Appropriate to hold lisinopril and amlodipine for now given borderline BP Continue metoprolol Stool C. difficile DVT prophylaxis. Lovenox subcu Full code Text document was generated using [employer] voice recognition software. It may contain grammatical or spelling errors. Kindly contact undersigned for clarification of any documentation item in question. History of Present Illness Chief Complaint: near syncope Primary Care Provider: Sai Mason MD History obtained from patient and records. Medical history significant for chronic systolic heart failure (EF 45 to 49%, TTE 2021) ischemic cardiomyopathy, CAD, valvular heart disease (moderate , mild AR), hypertension, hyperlipidemia, past tobacco abuse. Monthly confinements since August 2022. Last confinement last month for respiratory failure secondary to bronchopneumonia. Patient discharged on azithromycin course. Few days history of watery diarrhea symptoms with some abdominal discomfort. Patient felt like he was going to pass out while on the commode today. No headache, no chest pain, no shortness of breath. Chronic cough symptoms from sinus congestion possible allergies as per patient. Patient denies actual LOC. SBP 80s upon arrival of EMS. 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 Allergies Allergy/AdvReac Type Severity Reaction Status Date / Time No Known Allergies Allergy Unknown Unverified 11/06/22 21:29 Home Medications Medication Instructions Recorded Confirmed Type amlodipine 5 mg tablet 5 mg PO QAM 05/13/21 11/06/22 History acetaminophen 500 mg tablet 1,000 mg PO Q6H PRN Pain 10/10/21 11/06/22 History (Tylenol Extra Strength) aspirin 81 mg tablet,delayed 81 mg PO QAM 10/10/21 11/06/22 History release clopidogrel 75 mg tablet 75 mg PO DAILY 09/17/22 11/06/22 History lisinopril 20 mg tablet 20 mg PO QAM 09/17/22 11/06/22 History metoprolol succinate 25 mg 25 mg PO QAM 09/17/22 11/06/22 History tablet,extended release 24 hr nitroglycerin 0.4 mg sublingual 0.4 mg sublingual UD PRN Chest Pain 09/17/22 11/06/22 History tablet ipratropium 0.5 mg-albuterol 3 mg 3 ml NEB Q6H PRN sob/wheezing #90 09/24/22 11/06/22 Rx (2.5 mg base)/3 mL nebulization mL soln atorvastatin 80 mg tablet 80 mg PO QPM 11/06/22 11/06/22 History benzonatate 100 mg capsule 100 mg PO TID PRN Cough 11/06/22 11/06/22 History vit C 250 mg-vit E 90 mg-zinc 40 1 tab PO BID 11/06/22 11/06/22 History mg-copper 1 [id number] capsule (PreserVision AREDS-2) Past Med/Surg History Medical History CAD (coronary artery disease) CKD (chronic kidney disease), stage III Dyslipidemia HTN (hypertension) with goal to be determined Moderate aortic stenosis Surgical History H/O lithotripsy History of cataract surgery S/P cardiac catheterization Family History Sister Heart disease Brother Heart disease Social History Smoking Status: Former smoker Tobacco Type: Cigars Second Hand Exposure: No; Tobacco Cessation Education Requested by Patient: No Hx Alcohol Use: Yes Alcohol type: hard liquor Hx Substance Use: No Preferred Language: Mohawk Communication Ability: Effective Gerentological Physiotherapist Required: No Beliefs That Will Affect Care: None marital status: Current Living Situation: Spouse Other Information That Helps Us Care for You: No Feels Safe at Home: Yes Safety Concerns: Feels Safe At This Time Assistive Devices: Denture - Upper and Walker Review of Systems Review of Systems: As per HPI, all other systems reviewed and negative Physical Exam Physical Exam: GENERAL: Comfortable, pleasant, slightly hard of hearing, no respiratory distress SKIN: Normal color, warm HEENT: [place] palpebral conjunctivae, no ptosis, dry buccal mucosa NECK : Supple, no tenderness CHEST : CTA, no tenderness HEART : RRR, systolic murmur best heard over second right intercostal space ABDOMEN: Some distention, nontender EXTREMITIES : No LE swelling/tenderness, no other conspicuous deformities noted NEUROLOGIC : Coherent, no facial asymmetry, slightly hard of hearing, gait and stance not assessed Results & Data Results & Data ([facility]) Vital Signs (Past 12 Hours) Vital Signs Temp Pulse Pulse Resp BP BP Pulse Ox 11/06/22 21:00 67 20 96/58 L 92 11/06/22 19:00 67 20 127/55 L 95 11/06/22 17:12 68 11/06/22 17:12 36.4 C L 68 16 77/41 L 99 O2 Del Method O2 Flow Rate 11/06/22 21:00 Room Air 11/06/22 19:00 Room Air 11/06/22 17:12 11/06/22 17:12 Nasal Cannula 2 Laboratory Results Laboratory Results WBC 6.94 K/ul (4.8-10.8) 11/06/22 18:35 RBC 4.07 M/uL (4.63-6.08) L 11/06/22 18:35 Hgb 12.9 g/dl (14.0-18.0) L 11/06/22 18:35 Hct 39.0 % (40.1-51.0) L 11/06/22 18:35 MCV 95.8 fL (80.0-100.0) 11/06/22 18:35 MCH 31.7 pg (25.0-34.0) 11/06/22 18:35 MCHC 33.1 g/dL (32.0-36.0) 11/06/22 18:35 RDW Std Deviation 46.7 fL (36.4-46.3) H 11/06/22 18:35 RDW Coeff of [place] 13.2 % (11.5-14.5) 11/06/22 18:35 Plt Count 107 K/uL (130-400) L 11/06/22 18:35 MPV 11.3 fL (9.4-12.4) 11/06/22 18:35 Immature Gran % (Auto) 0.3 % 11/06/22 18:35 Neut % (Auto) 84.6 % 11/06/22 18:35 Lymph % (Auto) 8.9 % 11/06/22 18:35 [place] % (Auto) 5.8 % 11/06/22 18:35 Eos % (Auto) 0.3 % 11/06/22 18:35 Baso % (Auto) 0.1 % 11/06/22 18:35 Neut # (Auto) 5.87 K/uL (1.4-6.5) 11/06/22 18:35 Lymph # (Auto) 0.62 K/uL (1.2-3.4) L 11/06/22 18:35 [place] # (Auto) 0.40 K/uL (0.24-0.82) 11/06/22 18:35 Eos # (Auto) 0.02 K/uL (0-0.50) 11/06/22 18:35 Baso # (Auto) 0.01 K/uL (0-0.2) 11/06/22 18:35 Immature Gran # (Auto) 0.02 K/uL (0.00-0.02) 11/06/22 18:35 Platelet Estimate Decreased (Normal) L 11/06/22 18:35 Sodium 136 mmol/L (136-145) 11/06/22 17:09 Potassium 4.0 mmol/L (3.5-5.1) 11/06/22 17:09 Chloride 104 mmol/L (98-107) 11/06/22 17:09 Carbon Dioxide 22 mmol/L (21-32) 11/06/22 17:09 Anion Gap 10 (3-11) 11/06/22 17:09 BUN 32 mg/dl (6-23) H 11/06/22 17:09 Creatinine 1.35 mg/dl (0.6-1.4) 11/06/22 17:09 Est Cr Clr Drug Dosing 49.5 ml/min 11/06/22 17:09 Est GFR ( Amer) 57.5 ml/min 11/06/22 17:09 Est GFR (Non-Af Amer) 49.6 ml/min 11/06/22 17:09 BUN/Creatinine Ratio 23.7 (10-20) H 11/06/22 17:09 Glucose 140 mg/dl (70-99(Fasting)) H 11/06/22 17:09 Lactate 1.9 mmol/L (0.4-2.0) 11/06/22 18:35 Calcium 8.3 mg/dl (8.5-10.1) L 11/06/22 17:09 Magnesium 2.0 mg/dl (1.7-2.4) 11/06/22 17:09 Total Bilirubin 0.6 mg/dl (0.2-1.0) 11/06/22 17:09 AST 35 U/L (13-39) 11/06/22 17:09 ALT 26 U/L (7-52) 11/06/22 17:09 Alkaline Phosphatase 93 U/L (34-104) 11/06/22 17:09 Total Protein 6.3 gm/dl (6.0-8.3) 11/06/22 17:09 Albumin 3.3 gm/dl (3.4-5.0) L 11/06/22 17:09 Globulin 3.0 gm/dl (2.5-4.0) 11/06/22 17:09 Albumin/Globulin Ratio 1.1 (0.9-2) 11/06/22 17:09 Lipase 21 U/L (11-82) 11/06/22 17:09 Procalcitonin 0.35 ng/ml (0-0.5) 11/06/22 17:09 SARS-CoV-2 (PCR) NEGATIVE (Negative) 11/06/22 20:07 Influenza Type A (PCR) Negative (Neg) 11/06/22 20:07 Influenza Type B (PCR) Negative (Neg) 11/06/22 20:07 RSV (RT-PCR) Negative (Neg) 11/06/22 20:07 Impressions Abdomen/Pelvis CT 11/06/22 17:33 CT SCAN OF THE ABDOMEN AND PELVIS WITH IV CONTRAST CLINICAL HISTORY: Generalized abdominal pain. Hypotension. COMPARISON STUDY: Chest CT dated 09/17/2022. TECHNIQUE: Following the IV administration of 88 cc of Optiray 350, CT scan of the abdomen and pelvis is performed from the lung bases to the proximal femora. Images are reviewed in the axial, sagittal, and coronal planes. IV contrast was administered without complication. A dose lowering technique was utilized adhering to the principles of ALARA. FINDINGS: Lung bases: The heart is enlarged and without pericardial effusion. The aortic valve leaflets are densely calcified. There are also coronary artery calcifications. A 1.7 cm irregular nodular opacity in the right middle lobe seen on image #35 is new from 09/17/2022 and likely inflammatory. Minimal patchy consolidation is seen at the left lung base. No pleural effusion is identified. A small hiatal hernia is noted. Liver: The contrast-enhanced liver is normal in size, contour, and attenuation. There is no intrahepatic biliary ductal dilatation. The hepatic veins and portal veins are patent. Gallbladder: The gallbladder is distended and otherwise normal appearance. Spleen: Normal in size and attenuation. Pancreas: Atrophic and grossly unremarkable. Adrenal glands: Unremarkable. Kidneys: The contrast enhanced kidneys demonstrate cortical atrophy and are without hydronephrosis. The kidneys enhance symmetrically. A 1.5 cm cyst is noted in the left kidney. Additional subcentimeter cortical hypodensities also likely represent cysts but are too small for definitive catheterization. Small renal sinus cysts are also seen bilaterally. Abdominal vasculature: The abdominal aorta is normal in course and caliber noting mild/moderate atherosclerotic calcification. Bowel: There is wall thickening and edema with mucosal hyperemia seen from the colon with surrounding inflammation and fluid. This extends from the ascending colon to the sigmoid. There are also thick-walled and hyperemic loops of small bowel. There is no pneumatosis intestinalis or portal venous gas. There is mild colonic diverticulosis without CT evidence of acute diverticulitis. No bowel obstruction is seen. The appendix is well-visualized and normal. Peritoneum: There is trace perihepatic ascites, as well as a small volume pelvic ascites. No intraperitoneal free air is seen. There is a fat-containing umbilical hernia. Lymphadenopathy: None. Pelvic viscera: The prostate gland is mildly enlarged and heterogeneous. The bladder wall is thickened/trabeculated indicating chronic outlet obstruction. Skeletal structures: The skeletal structures are osteopenic. There is mild lumbosacral spondylosis. No lytic or blastic lesions are seen. IMPRESSION: 1. There is diffuse wall thickening with mucosal edema and hyperemia seen involving the small bowel and colon as above. There is surrounding inflammation and fluid, and the appearance is consistent with a nonspecific enterocolitis. This could potentially related to hypoperfusion given the reported history of hypotension. Clinical correlation will be essential. The mesenteric vessels are well opacified and widely patent. 2. There is a small volume of abdominopelvic ascites. 3. No intraperitoneal free air is identified. There is no pneumatosis intestinalis or portal venous gas. 4. Cardiomegaly. 5. A 1.7 cm irregular airspace opacity in the right middle lobe is new from 09/17/2022, and there is minimal patchy consolidation at the left lung base. Correlate clinically for evidence of an infectious/inflammatory pneumonitis. A follow-up chest CT in 3-4 months time is recommended to document resolution. 6. Additional findings as above. ACT 112: Negative or not required by law. Electronically signed by: Naman Mann M.D. 11/06/2022 8:14 PM Chest X-Ray 11/06/22 17:34 SINGLE VIEW CHEST CLINICAL HISTORY: Hypotension. FINDINGS: An AP, portable, upright chest radiograph is compared to study dated 09/20/2022 and correlated with chest CT dated 09/17/2022. The heart is enlarged. The pulmonary vasculature is noncontrast. Foci of parenchymal scarring are seen throughout both lungs. Scarring/atelectasis is also seen at the right lung base. No airspace consolidation or large pleural effusion is identified. No pneumothorax is seen. The skeletal structures are osteopenic. The bony thorax is grossly intact. IMPRESSION: Cardiomegaly with no acute cardiopulmonary abnormality. ACT 112: Negative or not required by law. Electronically signed by: Naman Mann M.D. 11/06/2022 5:[address] 11/06/22 18:20 CT SCAN OF THE BRAIN WITHOUT IV CONTRAST CLINICAL HISTORY: Syncope. COMPARISON STUDY: No priors. TECHNIQUE: Unenhanced axial CT scan of the brain is performed from the vertex to the skull base. A dose lowering technique was utilized adhering to the principles of ALARA. CT DOSE: 1571.52 mGy.cm FINDINGS: Brain parenchyma: There is age-related involutional change noting moderate subcortical and periventricular microangiopathic disease. There is no hemorrhage, mass effect, or evidence of acute territorial ischemia by CT criteria. Carlson-white matter differentiation is preserved. No extra-axial fluid collection is seen. Ventricles, sulci, cisterns: Prominent secondary to involutional change. Intracranial vasculature: There is atherosclerotic calcification of the [place] carotid and vertebral arteries. Calvarium: The skeletal structures are osteopenic. No depressed calvarial fracture is seen. Sinuses and mastoids: A 1 cm retention cyst is partially visualized in the right maxillary antrum. The remaining visualized paranasal sinuses are clear. There is a right mastoid effusion. The left mastoid air cells are well pneumatized. Orbits: The bony orbits are grossly intact. There are bilateral ocular lens implants. IMPRESSION: There is no hemorrhage, mass effect, or evidence of acute territorial ischemia by CT criteria. ACT 112: Negative or not required by law. Electronically signed by: Naman Mann M.D. 11/06/2022 8:03 PM Diagnostic Findings EKG as per my interpretation : Rate 70, NSR, normal axis, inferior infarct, diffuse T wave abnormalities
[2022-11-06] MEDS ORDERED: LORATADINE 10 MG TAB PO STA (22:17)
[2022-11-06] MEDS ORDERED: ALBUMIN 25% 100 mL 25 GM/100 ML VIAL IV STA (22:17)
[2022-11-06] MEDS ORDERED: traMADol HCL 50 MG TABLET PO PRN (23:57)
[2022-11-06] MEDS ORDERED: PROMETHAZINE HCL 12.5 MG in SODIUM CHLORIDE 0.9% 50 ML IV PRN (23:57)
[2022-11-06] MEDS ORDERED: BENZONATATE 100 MG CAPSULE PO PRN (23:57)
[2022-11-06] MEDS ORDERED: NITROGLYCERIN SL 0.4 MG/TAB TAB SL PRN (23:57)
[2022-11-06] MEDS ORDERED: ACETAMINOPHEN 325 MG TAB PO PRN (23:57)
[2022-11-07] MEDS: ATORVASTATIN 40 MG TAB PO SCH ×2 (00:25→20:08)
[2022-11-07] MEDS: CALCIUM CARBONATE 500 MG CHEWABLE TAB PO PRN ×2 (00:25→21:19)
[2022-11-07 06:24] LABS: Hematocrit (blood only) 31.9 % (40.1-51.0); Hemoglobin 10.5 g/dl (14.0-18.0); Mean Platelet Volume 12.3 fL (9.4-12.4); Platelet Count 103 K/uL (130-400); White Blood Count 3.92 K/ul (4.8-10.8)
[2022-11-07 06:55] LABS: BUN Creatinine Ratio 27.7 (10-20); Calcium 7.4 mg/dl (8.5-10.1); Creatinine Clr Calc Pharmacy 65.7 ml/min; Est GFR (African American) 81.6 ml/min; Est GFR (Non-African American) 70.4 ml/min; Potassium 4.4 mmol/L (3.5-5.1)
[2022-11-07 07:28] LABS: Basophils # (auto) 0.01 K/uL (0-0.2); Basophils % (auto) 0.3 %; Echinocytes 1+; Eosinophils # (auto) 0.09 K/uL (0-0.50); Eosinophils % (auto) 2.3 %; Immature Granulocytes # (auto) 0.02 K/uL (0.00-0.02); Immature Granulocytes % (auto) 0.5 %; Lymphocytes # (auto) 0.83 K/uL (1.2-3.4); Lymphocytes % (auto) 21.2 %; Mean Corpuscular Hemoglobin 31.6 pg (25.0-34.0); Mean Corpuscular Hgb Conc 32.9 g/dL (32.0-36.0); Mean Corpuscular Volume 96.1 fL (80.0-100.0); Monocytes # (auto) 0.29 K/uL (0.24-0.82); Monocytes % (auto) 7.4 %; Neutrophils # (auto) 2.68 K/uL (1.4-6.5); Neutrophils % (auto) 68.3 %; Nucleated RBC # (auto) 0.02 K/uL (0-0); Nucleated RBC % (auto) 0.5 %; Ovalocytes 1+; RDW Coefficient of Variation 13.2 % (11.5-14.5); RDW Standard Deviation 47.1 fL (36.4-46.3); Red Blood Count 3.32 M/uL (4.63-6.08)
[2022-11-07] MEDS: CLOPIDOGREL BISULFATE 75 MG TAB PO SCH (08:04)
[2022-11-07] MEDS: ASPIRIN 81 MG ECTAB PO SCH (08:04)
[2022-11-07] MEDS: METOPROLOL SUCC 25MG EXT REL TAB PO SCH (08:04)
[2022-11-07] MEDS: ENOXAPARIN INJ 40 MG/0.4 ML SYR SQ SCH (08:05)
--- NOTE | 2022-11-07 11:51 | Hospitalist Progress Note ---
Date of Service November 07, 2022 Assessment & Plan (1) Near syncope: Plan: Presyncope Likely secondary to orthostasis due to hypotension CT HEAD:There is no hemorrhage, mass effect, or evidence of acute territorial ischemia by CT criteria. Cortical status History of diabetes Blood pressure better currently Continue to hold antihypertensives Enterocolitis CT abdomen suggestive of nonspecific enterocolitis Tolerating diet Studies if has recurrence of diarrhea Right middle lobe opacity Incidental finding on CT -CT:A 1.7 cm irregular airspace opacity in the right middle lobe is new from 09/17/2022, and there is minimal patchy consolidation at the left lung base. Correlate clinically for evidence of an infectious/inflammatory pneumonitis. A follow-up chest CT in 3-4 months time is recommended to document resolution. -Patient denies any cough, shortness of breath Will need repeat CT in 3 to 4 months as outpatient Chronic systolic heart failure EF 45 to 49%, TTE 2021 Ischemic cardiomyopathy Valvular heart disease: moderate , mild AR Monitor volume status CAD Continue statin, metoprolol, aspirin, Plavix Hyperlipidemia on statin Prediabetes HbA1C:6.22 Sep 2022 Past tobacco abuse DVT Px: Lovenox SQ Code Status Full code Disposition PT OT prior to discharge Admission and Anticipated Discharge Date Admission Date: November 06, 2022 Subjective Patient is seen and examined at bedside States feeling much better this morning Diarrhea, abdominal discomfort resolved Denies any chest pain, dyspnea, dizziness, nausea, cough Offers no other complaints Review of Systems Review of Systems: All systems reviewed & are unremarkable except as noted in Subjective Physical Exam Physical Exam: Physical Exam: Vitals signs as noted above General Appearance:Obese, d nourished, no apparent distress Head: normocephalic, Atraumatic Eyes: normal inspection, EOMI Neck: supple, Trachea midline Respiratory/Chest: Decreased breath sounds, CTA, No accessory muscle use Cardiovascular: S1, S2, + murmur Abdomen/GI:Soft, Non tender, distended, Bowel sounds present Extremities/Musculoskeletal:normal inspection, no edema Neurologic/Psych:AAOX3, grossly no focal neurological deficits Skin: normal color, warm Results & Data Results & Data ([facility]) Vital Signs (Past 12 Hours) Vital Signs Temp Pulse Pulse Resp BP BP Pulse Ox 11/07/22 11:29 36.6 C 69 20 124/74 94 11/07/22 07:44 36.6 C 77 20 122/75 94 11/07/22 07:00 11/07/22 06:55 67 11/07/22 03:36 36.5 C 69 18 108/66 94 11/06/22 23:56 67 11/07/22 00:30 11/06/22 23:57 36.8 C 69 16 108/70 95 11/06/22 23:57 Pulse Ox O2 Del Method O2 Del Method 11/07/22 11:29 Room Air 11/07/22 07:44 Room Air 11/07/22 07:00 Room Air 11/07/22 06:55 11/07/22 03:36 Room Air 11/06/22 23:56 11/07/22 00:30 Room Air 11/06/22 23:57 Room Air 11/06/22 23:57 95 Room Air Laboratory Results Short CBC 11/06/22 11/07/22 Range/Units 18:35 05:36 WBC 6.94 3.92 L (4.8-10.8) K/ul Hgb 12.9 L 10.5 L (14.0-18.0) g/dl Hct 39.0 L 31.9 L (40.1-51.0) % Plt Count 107 L 103 L (130-400) K/uL BMP 11/06/22 11/07/22 17:09 05:36 Sodium 136 137 Potassium 4.0 4.4 Chloride 104 109 H Carbon Dioxide 22 25 BUN 32 H 28 H Creatinine 1.35 1.01 D Glucose 140 H 91 Calcium 8.3 L 7.4 L Liver Function 11/06/22 Range/Units 17:09 Total Bilirubin 0.6 (0.2-1.0) mg/dl AST 35 (13-39) U/L ALT 26 (7-52) U/L Alkaline Phosphatase 93 (34-104) U/L Albumin 3.3 L (3.4-5.0) gm/dl
--- NOTE | 2022-11-08 05:26 | Electrocardiogram Report ---
Test Reason : Blood Pressure : / mmHG Vent. Rate : 072 BPM Atrial Rate : 072 BPM P-R Int : 180 ms QRS Dur : 100 ms QT Int : 412 ms P-R-T Axes : 014 037 216 degrees QTc Int : 451 ms Poor data quality, interpretation may be adversely affected Normal sinus rhythm Inferior infarct , age undetermined Abnormal ECG When compared with ECG of 20-SEP-2022 13:13, HR has decreased Confirmed by Buster Perry ([id number]) on 11/08/2022 5:26:39 AM Referred By: Sai Mason Confirmed By:Buster Perry
[2022-11-08] MEDS: METOPROLOL SUCC 25MG EXT REL TAB PO SCH (08:28)
[2022-11-08] MEDS: CLOPIDOGREL BISULFATE 75 MG TAB PO SCH (08:29)
[2022-11-08] MEDS: ASPIRIN 81 MG ECTAB PO SCH (08:29)
[2022-11-08] MEDS: ENOXAPARIN INJ 40 MG/0.4 ML SYR SQ SCH (08:29)
[2022-11-08 08:51] LABS: BUN Creatinine Ratio 24.1 (10-20); Calcium 7.8 mg/dl (8.5-10.1); Creatinine Clr Calc Pharmacy 61.5 ml/min; Est GFR (African American) 75.3 ml/min; Est GFR (Non-African American) 64.9 ml/min; Potassium 4.2 mmol/L (3.5-5.1)
[2022-11-08] MEDS ORDERED: lisinopril 20 MG TAB PO SCH (13:00)
--- NOTE | 2022-11-08 13:05 | Hospitalist Progress Note ---
Date of Service November 08, 2022 Assessment & Plan (1) Near syncope: Plan: Presyncope Likely secondary to orthostasis due to hypotension CT HEAD:There is no hemorrhage, mass effect, or evidence of acute territorial ischemia by CT criteria. Positive Orthostatics BP improved with IV fluids Plan to discontinue Amlodipine upon discharge Enterocolitis CT abdomen suggestive of nonspecific enterocolitis Tolerated No recurrence of diarrhea since hospitalization Denies abd pain Right middle lobe opacity Incidental finding on CT -CT:A 1.7 cm irregular airspace opacity in the right middle lobe is new from 09/17/2022, and there is minimal patchy consolidation at the left lung base. Correlate clinically for evidence of an infectious/inflammatory pneumonitis. A follow-up chest CT in 3-4 months time is recommended to document resolution. -Patient denies any cough, shortness of breath Advised to get repeat CT in 3 to 4 months as outpatient Chronic systolic heart failure EF 45 to 49%, TTE 2021 Ischemic cardiomyopathy Valvular heart disease: moderate , mild AR Monitor volume status CAD Continue statin, metoprolol, aspirin, Plavix Hyperlipidemia on statin Prediabetes HbA1C:6.22 Sep 2022 Past tobacco abuse DVT Px: Lovenox SQ Code Status Full code Disposition Home Updated patient's over the phone on 11/08/22: Understands and agrees with the plan for Admission and Anticipated Discharge Date Admission Date: November 06, 2022 Subjective Patient is seen and examined at bedside Doing well today Offers no complaints Had PT eval earlier today Denies any chest pain, dyspnea, dizziness, nausea, cough, abd pain, diarrhea Offers no other complaints Review of Systems Review of Systems: All systems reviewed & are unremarkable except as noted in Subjective Physical Exam Physical Exam: Physical Exam: Vitals signs as noted above General Appearance:Obese, d nourished, no apparent distress Head: normocephalic, Atraumatic Eyes: normal inspection, EOMI Neck: supple, Trachea midline Respiratory/Chest: Decreased breath sounds, CTA, No accessory muscle use Cardiovascular: S1, S2, + murmur Abdomen/GI:Soft, Non tender, distended, Bowel sounds present Extremities/Musculoskeletal:normal inspection, no edema Neurologic/Psych:AAOX3, grossly no focal neurological deficits Skin: normal color, warm Results & Data Results & Data ([facility]) Vital Signs (Past 12 Hours) Vital Signs Temp Pulse Pulse Resp BP BP Pulse Ox 12/19/22 11:40 36.7 C 91 H 18 155/74 H 95 11/08/22 10:13 98 H 11/08/22 07:54 36.7 C 89 18 133/77 91 11/08/22 07:16 79 11/08/22 04:17 36.8 C 76 18 122/75 92 O2 Del Method 11/08/22 11:40 Room Air 11/08/22 10:13 11/08/22 07:54 Room Air 11/08/22 07:16 11/08/22 04:17 Room Air Laboratory Results [facility] 11/08/22 07:42 Sodium 136 Potassium 4.2 Chloride 106 Carbon Dioxide 25 BUN 26 H Creatinine 1.08 Glucose 105 H Calcium 7.8 L
--- NOTE | 2022-11-08 13:11 | Discharge Summary ---
Date of Service November 08, 2022 Admission HPI Per Admitting Provider History obtained from patient and records. Medical history significant for chronic systolic heart failure (EF 45 to 49%, TTE 2021) ischemic cardiomyopathy, CAD, valvular heart disease (moderate , mild AR), hypertension, hyperlipidemia, past tobacco abuse. Monthly confinements since August 2022. Last confinement last month for respiratory failure secondary to bronchopneumonia. Patient discharged on azithromycin course. Few days history of watery diarrhea symptoms with some abdominal discomfort. Patient felt like he was going to pass out while on the commode today. No headache, no chest pain, no shortness of breath. Chronic cough symptoms from sinus congestion possible allergies as per patient. Patient denies actual LOC. 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 Admission Exam Per Admitting Provider Physical Exam Physical Exam: GENERAL: Comfortable, pleasant, slightly hard of hearing, no respiratory distress SKIN: Normal color, warm HEENT: [place] palpebral conjunctivae, no ptosis, dry buccal mucosa NECK : Supple, no tenderness CHEST : CTA, no tenderness HEART : RRR, systolic murmur best heard over second right intercostal space ABDOMEN: Some distention, nontender EXTREMITIES : No LE swelling/tenderness, no other conspicuous deformities noted NEUROLOGIC : Coherent, no facial asymmetry, slightly hard of hearing, gait and stance not assessed Principal Diagnosis Presyncope Enterocolitis Right middle lobe opacity Discharge Data Allergies Allergy/AdvReac Type Severity Reaction Status Date / Time No Known Allergies Allergy Unknown Unverified 11/06/22 21:29 Consultations 11/06/22 20:34 ED Decision to Admit Stat Procedures Performed Laboratory Results WBC 3.92 K/ul (4.8-10.8) L 11/07/22 05:36 RBC 3.32 M/uL (4.63-6.08) L 11/07/22 05:36 Hgb 10.5 g/dl (14.0-18.0) L 11/07/22 05:36 Hct 31.9 % (40.1-51.0) L 11/07/22 05:36 MCV 96.1 fL (80.0-100.0) 11/07/22 05:36 MCH 31.6 pg (25.0-34.0) 11/07/22 05:36 MCHC 32.9 g/dL (32.0-36.0) 11/07/22 05:36 RDW Std Deviation 47.1 fL (36.4-46.3) H 11/07/22 05:36 RDW Coeff of Kaiden 13.2 % (11.5-14.5) 11/07/22 05:36 Plt Count 103 K/uL (130-400) L 11/07/22 05:36 MPV 12.3 fL (9.4-12.4) 11/07/22 05:36 Immature Gran % (Auto) 0.5 % 11/07/22 05:36 Neut % (Auto) 68.3 % 11/07/22 05:36 Lymph % (Auto) 21.2 % 11/07/22 05:36 Edwards % (Auto) 7.4 % 11/07/22 05:36 Eos % (Auto) 2.3 % 11/07/22 05:36 Baso % (Auto) 0.3 % 11/07/22 05:36 Neut # (Auto) 2.68 K/uL (1.4-6.5) 11/07/22 05:36 Lymph # (Auto) 0.83 K/uL (1.2-3.4) L 11/07/22 05:36 Edwards # (Auto) 0.29 K/uL (0.24-0.82) 11/07/22 05:36 Eos # (Auto) 0.09 K/uL (0-0.50) 11/07/22 05:36 Baso # (Auto) 0.01 K/uL (0-0.2) 11/07/22 05:36 Immature Gran # (Auto) 0.02 K/uL (0.00-0.02) 11/07/22 05:36 Absolute Nucleated RBC 0.02 K/uL (0-0) H 11/07/22 05:36 Nucleated RBC % (auto) 0.5 % 11/07/22 05:36 Platelet Estimate Decreased (Normal) L 11/06/22 18:35 Ovalocytes 1+ 11/07/22 05:36 Echinocytes 1+ 11/07/22 05:36 Sodium 136 mmol/L (136-145) 11/08/22 07:42 Potassium 4.2 mmol/L (3.5-5.1) 11/08/22 07:42 Chloride 106 mmol/L (98-107) 11/08/22 07:42 Carbon Dioxide 25 mmol/L (21-32) 11/08/22 07:42 Anion Gap 5 (3-11) 11/08/22 07:42 BUN 26 mg/dl (6-23) H 11/08/22 07:42 Creatinine 1.08 mg/dl (0.6-1.4) 11/08/22 07:42 Est Cr Clr Drug Dosing 61.5 ml/min 11/08/22 07:42 Est GFR ( Amer) 75.3 ml/min 11/08/22 07:42 Est GFR (Non-Af Amer) 64.9 ml/min 11/08/22 07:42 BUN/Creatinine Ratio 24.1 (10-20) H 11/08/22 07:42 Glucose 105 mg/dl (70-99(Fasting)) H 11/08/22 07:42 Lactate 1.9 mmol/L (0.4-2.0) 11/06/22 18:35 Calcium 7.8 mg/dl (8.5-10.1) L 11/08/22 07:42 Magnesium 2.0 mg/dl (1.7-2.4) 11/06/22 17:09 Total Bilirubin 0.6 mg/dl (0.2-1.0) 11/06/22 17:09 AST 35 U/L (13-39) 11/06/22 17:09 ALT 26 U/L (7-52) 11/06/22 17:09 Alkaline Phosphatase 93 U/L (34-104) 11/06/22 17:09 Total Protein 6.3 gm/dl (6.0-8.3) 11/06/22 17:09 Albumin 3.3 gm/dl (3.4-5.0) L 11/06/22 17:09 Globulin 3.0 gm/dl (2.5-4.0) 11/06/22 17:09 Albumin/Globulin Ratio 1.1 (0.9-2) 11/06/22 17:09 Lipase 21 U/L (11-82) 11/06/22 17:09 Procalcitonin 0.35 ng/ml (0-0.5) 11/06/22 17:09 SARS-CoV-2 (PCR) NEGATIVE (Negative) 11/06/22 20:07 Influenza Type A (PCR) Negative (Neg) 11/06/22 20:07 Influenza Type B (PCR) Negative (Neg) 11/06/22 20:07 RSV (RT-PCR) Negative (Neg) 11/06/22 20:07 Impressions Abdomen/Pelvis CT 11/06/22 17:33 CT SCAN OF THE ABDOMEN AND PELVIS WITH IV CONTRAST CLINICAL HISTORY: Generalized abdominal pain. Hypotension. COMPARISON STUDY: Chest CT dated 09/17/2022. TECHNIQUE: Following the IV administration of 88 cc of Optiray 350, CT scan of the abdomen and pelvis is performed from the lung bases to the proximal femora. Images are reviewed in the axial, sagittal, and coronal planes. IV contrast was administered without complication. A dose lowering technique was utilized adher ing to the principles of ALARA. FINDINGS: Lung bases: The heart is enlarged and without pericardial effusion. The aortic valve leaflets are densely calcified. There are also coronary artery calcif ications. A 1.7 cm irregular nodular opacity in the right middle lobe seen on image #35 is new from 09/17/2022 and likely inflammatory. Minimal patchy consolidation is seen at the left lung base. No pleural effusion is identified. A small hiatal hernia is noted. Liver: The contrast-enhanced liver is normal in size, contour, and attenuation. There is no intrahepatic biliary ductal dilatation. The hepatic veins and portal veins are patent. Gallbladder: The gallbladder is distended and otherwise normal appearance. Spleen: Normal in size and attenuation. Pancreas: Atrophic and grossly unremarkable. Adrenal glands: Unremarkable. Kidneys: The contrast enhanced kidneys demonstrate cortical atrophy and are without hydronephrosis. The kidneys enhance symmetrically. A 1.5 cm cyst is note d in the left kidney. Additional subcentimeter cortical hypodensities also likely represent cysts but are too small for definitive catheterization. Small renal sinus cysts are also seen bilaterally. Abdominal vasculature: The abdominal aorta is normal in course and caliber noting mild/moderate atherosclerotic calcification. Bowel: There is wall thickening and edema with mucosal hyperemia seen from the colon with surrounding inflammation and fluid. This extends from the ascending colon to the sigmoid. There are also thick-walled and hyperemic loops of small bowel. There is no pneumatosis intestinalis or portal venous gas. There is mild colonic diverticulosis without CT evidence of acute diverticulitis. No bowel obstruction is seen. The appendix is well-visualized and normal. Peritoneum: There is trace perihepatic ascites, as well as a small volume pelvic ascites. No intraperitoneal free air is seen. There is a fat-containing umbilical hernia. Lymphadenopathy: None. Pelvic viscera: The prostate gland is mildly enlarged and heterogeneous. The bladder wall is thickened/trabeculated indicating chronic outlet obstruction. Skeletal structures: The skeletal structures are osteopenic. There is mild lumbosacral spondylosis. No lytic or blastic lesions are seen. IMPRESSION: 1. There is diffuse wall thickening with mucosal edema and hyperemia seen involving the small bowel and colon as above. There is surrounding inflammation and fluid, and the appearance is consistent with a nonspecific enterocolitis. This could potentially related to hypoperfusion given the reported history of hypotension. Clinical correlation will be essential. The mesenteric vessels are well opacified and widely patent. 2. There is a small volume of abdominopelvic ascites. 3. No intraperitoneal free air is identified. There is no pneumatosis intestinalis or portal venous gas. 4. Cardiomegaly. 5. A 1.7 cm irregular airspace opacity in the right middle lobe is new from 09/17/2022, and there is minimal patchy consolidation at the left lung base. Correlate clinically for evidence of an infectious/inflammatory pneumonitis. A follow-up chest CT in 3-4 months time is recommended to document resolution. 6. Additional findings as above. ACT 112: Negative or not required by law. Electronically signed by: Naman Mann M.D. 11/06/2022 8:14 PM Chest X-Ray 11/06/22 17:34 SINGLE VIEW CHEST CLINICAL HISTORY: Hypotension. FINDINGS: An AP, portable, upright chest radiograph is compared to study dated 09/20/2022 and correlated with chest CT dated 09/17/2022. The heart is enlarged. The pulmonary vasculature is noncontrast. Foci of parenchymal scarring are seen throughout both lungs. Scarring/atelectasis is also seen at the right lung base. No airspace consolidation or large pleural effusion is identified. No pneumothorax is seen. The skeletal structures are osteopenic. The bony thorax is grossly intact. IMPRESSION: Cardiomegaly with no acute cardiopulmonary abnormality. ACT 112: Negative or not required by law. Electronically signed by: Naman Mann M.D. 11/06/2022 5:[address] 11/06/22 18:20 CT SCAN OF THE BRAIN WITHOUT IV CONTRAST CLINICAL HISTORY: Syncope. COMPARISON STUDY: No priors. TECHNIQUE: Unenhanced axial CT scan of the brain is performed from the vertex to the skull base. A dose lowering technique was utilized adhering to the principles of ALARA. CT DOSE: 1571.52 mGy.cm FINDINGS: Brain parenchyma: There is age-related involutional change noting moderate subcortical and periventricular microangiopathic disease. There is no hemorrhage, mass effect, or evidence of acute territorial ischemia by CT criteria. Carlson-white matter differentiation is preserved. No extra-axial fluid collection is seen. Ventricles, sulci, cisterns: Prominent secondary to involutional change. Intracranial vasculature: There is atherosclerotic calcification of the cavernous carotid and vertebral arteries. Calvarium: The skeletal structures are osteopenic. No depressed calvarial fracture is seen. Sinuses and mastoids: A 1 cm retention cyst is partially visualized in the right maxillary antrum. The remaining visualized paranasal sinuses are clear. There is a right mastoid effusion. The left mastoid air cells are well pneumatized. Orbits: The bony orbits are grossly intact. There are bilateral ocular lens implants. IMPRESSION: There is no hemorrhage, mass effect, or evidence of acute territorial ischemia by CT criteria. ACT 112: Negative or not required by law. Electronically signed by: Naman Mann M.D. 11/06/2022 8:03 PM Ordered Studies 11/06/22 17:33 CT abd pelvis IV con only Stat 11/06/22 18:20 CT head/brain wo con Stat Hospital Course (1) Near syncope: Presyncope Likely secondary to orthostasis due to hypotension CT HEAD:There is no hemorrhage, mass effect, or evidence of acute territorial ischemia by CT criteria. Positive Orthostatics BP improved with IV fluids Plan to discontinue Amlodipine upon discharge Enterocolitis CT abdomen suggestive of nonspecific enterocolitis Tolerated No recurrence of diarrhea since hospitalization Denies abd pain Right middle lobe opacity Incidental finding on CT -CT:A 1.7 cm irregular airspace opacity in the right middle lobe is new from 09/17/2022, and there is minimal patchy consolidation at the left lung base. Correlate clinically for evidence of an infectious/inflammatory pneumonitis. A follow-up chest CT in 3-4 months time is recommended to document resolution. -Patient denies any cough, shortness of breath Advised to get repeat CT in 3 to 4 months as outpatient Chronic systolic heart failure EF 45 to 49%, TTE 2021 Ischemic cardiomyopathy Valvular heart disease: moderate , mild AR Monitor volume status CAD Continue statin, metoprolol, aspirin, Plavix Hyperlipidemia on statin Prediabetes HbA1C:6.22 Sep 2022 Past tobacco abuse DVT Px: Lovenox SQ Code Status Full code Disposition Home Updated patient's over the phone on 11/08/22: Understands and agrees with the plan for Total Time Total Time Spent Total Time Spent (In Minutes): 48 minutes Discharge Plan Discharge Items Patient Disposition: Home - Self-Care Reason For Visit: NEAR SYNCOPE Discharge Diagnosis: Presyncope Enterocolitis Right middle lobe opacity Activity: Per Instructions section Exercise/Sports: Gradually increase as tolerated Non-emergency contact: Primary Care Provider and Automation Consultant Call non-emergency contact if: you have any medication questions, your symptoms worsen, your pain is concerning for you and you have a fever Follow-up/Referrals: Sai Mason MD [Primary Care Provider] - (Date & Time 11/12/2022 3:20 PM Provider Eric Dsouza MD [facility] ) Diet: Heart Healthy Addtl Attending Provider Instructions: Follow-up with your primary care physician on 11/12/2022 3:20 PM Follow-up with your federal mediation commissioner as scheduled in Nov 2022 --Get outpatient CT chest in 3 to 4 months as advised for evaluation of Right middle lobe opacity. --Your blood pressure medication--amlodipine is discontinued until follow-up with your primary care physician. --- Monitor your blood pressure regularly at home. Discussed with your physician for further adjustment of medications as needed. Seek immediate medical attention if your symptoms reoccur or worsen Please take all medications as instructed on discharge list below. Please call if you have any questions or problems. You can reach a [facility] hospitalist on duty at [facility] 24 hours a day by calling [phone] Pending Studies at Discharge: No Stand-Alone Forms: My [facility], Smoking Cessation Medications and DC Order Prescriptions: Continued lisinopril 20 mg tablet 20 mg PO QAM clopidogrel 75 mg tablet 75 mg PO DAILY nitroglycerin 0.4 mg tablet, sublingual 0.4 mg sublingual UD PRN (Reason: Chest Pain) Rx Instructions: Take one nitro every 5 minutes up to three doses as needed for chest pain metoprolol succinate 25 mg tablet extended release 24 hr 25 mg PO QAM atorvastatin 80 mg tablet 80 mg PO QPM benzonatate 100 mg capsule 100 mg PO TID PRN (Reason: Cough) PreserVision AREDS-2 250-90-40-1 mg Capsule 1 tab PO BID aspirin 81 mg tablet,delayed release (DR/EC) 81 mg PO QAM acetaminophen [Tylenol Extra Strength] 500 mg Tablet 1,000 mg PO Q6H PRN (Reason: Pain) ipratropium-albuterol 0.5 mg-3 mg(2.5 mg base)/3 mL Solution For Nebulization 3 ml NEB Q6H PRN (Reason: sob/wheezing) Qty: 90 0RF Discontinued amlodipine 5 mg tablet 5 mg PO QAM Discharge Orders: Discharge Order (Routine); Ordered 11/08/22 Ordered By: Valdemar Phillips Admission Data Admit Date/Time: 11/06/22 22:14 Attending Provider: Valdemar Phillips Admit Provider: Carlitos Torrez Primary Care Provider: Sai Mason Other Providers: Carlitos Torrez
== END 2022-11-08 15:31 | disposition home or self-care (01) ==
LOC: 2N 16:38 → ED 16:38 → 2N 23:46
DX: R53.1 Weakness; I95.9 Hypotension, unspecified; Z79.82 Long term (current) use of aspirin; Z87.891 Personal history of nicotine dependence; I25.10 Atherosclerotic heart disease of native coronary artery without angina pectoris; Z79.899 Other long term (current) drug therapy; I50.22 Chronic systolic (congestive) heart failure; R73.03 Prediabetes; K52.9 Noninfective gastroenteritis and colitis, unspecified

== ENCOUNTER 2022-11-30 21:10 | Inpatient (IN) ==
[2022-11-30] MEDS ORDERED: SODIUM CHLORIDE 0.9% 1000ML 250 ML IV ONE (21:39)
[2022-11-30 22:22] LABS: Albumin Globulin Ratio 0.9 (0.9-2); Albumin Level 3.5 gm/dl (3.4-5.0); BUN Creatinine Ratio 44.1 (10-20); Bilirubin,Total 0.5 mg/dl (0.2-1.0); Calcium 8.9 mg/dl (8.5-10.1); Creatinine Clr Calc Pharmacy 58.8 ml/min; Est GFR (African American) 72.3 ml/min; Est GFR (Non-African American) 62.4 ml/min; Globulin 3.8 gm/dl (2.5-4.0); Magnesium 2.1 mg/dl (1.7-2.4); Potassium 4.7 mmol/L (3.5-5.1); Total Protein 7.3 gm/dl (6.0-8.3)
[2022-11-30 22:23] LABS: Appearance Urine Clear (Clear); Bacteria Urine Automated Negative (Negative); Bilirubin Urine Negative (Negative); Blood Urine Negative (Negative); Color Urine Yellow; Glucose Urine UA Negative (Negative); Ketones Urine Negative (Negative); Leukocyte Esterase Urine 1+ (Negative); Nitrite Urine Negative (Negative); Protein Urine Negative (Negative); RBC Urine Automated 0-4 /hpf (0-4); Specific Gravity Urine 1.019 (1.000-1.030); Urobilinogen Urine Negative (Negative)
--- NOTE | 2022-11-30 22:33 | Emergency Department Note ---
History of Present Illness General Chief complaint: Illness Stated complaint: DIZZINESS Time Seen by Provider: 11/30/22 21:26 History of Present Illness This 82-year-old presents to the ER complaining of generalized weakness and nausea Location: Generalized Quality: Weak Severity: Moderate Duration: Past few days Timing: Started a few days Context: Patient was concerned and came in Modifying factors: better with rest; worse with activity Patient denies chest pain, dyspnea, fevers, numbness, tingling, localized weakness. Patient states he feels quite weak. He feels unsteady with his gait Home Medications Medication Instructions Recorded Confirmed Type acetaminophen 500 mg tablet 1,000 mg PO Q6H PRN Pain 10/10/21 11/30/22 History (Tylenol Extra Strength) aspirin 81 mg tablet,delayed 81 mg PO QAM 10/10/21 11/30/22 History release clopidogrel 75 mg tablet 75 mg PO DAILY 09/17/22 11/30/22 History lisinopril 20 mg tablet 20 mg PO QAM 09/17/22 11/30/22 History metoprolol succinate 25 mg 25 mg PO QAM 09/17/22 11/30/22 History tablet,extended release 24 hr nitroglycerin 0.4 mg sublingual 0.4 mg sublingual UD PRN Chest Pain 09/17/22 11/30/22 History tablet ipratropium 0.5 mg-albuterol 3 mg 3 ml NEB Q6H PRN sob/wheezing #90 09/24/22 11/30/22 Rx (2.5 mg base)/3 mL nebulization mL soln atorvastatin 80 mg tablet 80 mg PO QPM 11/06/22 11/30/22 History benzonatate 100 mg capsule 100 mg PO TID PRN Cough 11/06/22 11/30/22 History vit C 250 mg-vit E 90 mg-zinc 40 1 tab PO BID 11/06/22 11/30/22 History mg-copper 1 uk-[id number] capsule (PreserVision AREDS-2) amlodipine 2.5 mg tablet 2.5 mg PO DAILY 11/30/22 11/30/22 History hydrocortisone 2.5 % topical cream 1 applic MS BID PRN irritation 11/30/22 11/30/22 History with perineal applicator Allergies Allergy/AdvReac Type Severity Reaction Status Date / Time No Known Allergies Allergy Unknown Unverified 11/30/22 22:46 Past Med/Surg History Medical History CAD (coronary artery disease) CKD (chronic kidney disease), stage III Dyslipidemia HTN (hypertension) with goal to be determined Moderate aortic stenosis Surgical History H/O lithotripsy History of cataract surgery S/P cardiac catheterization Family History Sister Heart disease Brother Heart disease Social History Smoking Status: Former smoker Tobacco Type: Cigars Second Hand Exposure: No; Hx Alcohol Use: Yes Alcohol type: hard liquor Hx Substance Use: No Preferred Language: Spanish Communication Ability: Effective [employer] Work[employer] Required: No Beliefs That Will Affect Care: None marital status: Current Living Situation: Spouse Feels Safe at Home: Yes Assistive Devices: Denture - Upper and Walker Review of Systems A total of 10 systems reviewed and were otherwise negative Physical Exam Vital Signs Vital Signs - 24 hr 11/30/22 21:24 11/30/22 21:19 11/30/22 21:40 Temperature 36.4 C L 36.4 C L Temperature Source Oral Oral Pulse Rate 97 H 86 Pulse Rate [Apical] 97 H Pulse Rhythm Regular Pulse Rhythm [Apical] Regular Pulse Strength [Apical] Normal Respiratory Rate 18 17 17 Respiratory Effort / Characteristics Non-Labored Non-Labored Respiratory Depth Normal Normal Respiratory Pattern Regular Regular Blood Pressure 134/74 Blood Pressure [Right Arm] 134/74 Blood Pressure Mean 94 Blood Pressure Mean [Right Arm] 94 Blood Pressure Position Lying Blood Pressure Position [Right Arm] Lying Pulse Oximetry 97 97 97 Oxygen Delivery Method Room Air Room Air Room Air Sepsis Recent Fever Within 48 Hours No Sepsis New/Unexplained Change in Mental Status No Sepsis Action Taken by Nursing No Action Required 11/30/22 21:51 11/30/22 22:00 11/30/22 22:00 Temperature Temperature Source Pulse Rate 88 82 Pulse Rate [Apical] Pulse Rhythm Pulse Rhythm [Apical] Pulse Strength [Apical] Respiratory Rate 23 20 Respiratory Effort / Characteristics Respiratory Depth Respiratory Pattern Blood Pressure 88/56 L Blood Pressure [Right Arm] Blood Pressure Mean 66 Blood Pressure Mean [Right Arm] Blood Pressure Position Blood Pressure Position [Right Arm] Pulse Oximetry 97 95 Oxygen Delivery Method Room Air Room Air Sepsis Recent Fever Within 48 Hours Sepsis New/Unexplained Change in Mental Status Sepsis Action Taken by Nursing 11/30/22 22:15 11/30/22 22:30 11/30/22 23:45 Temperature Temperature Source Pulse Rate 84 82 82 Pulse Rate [Apical] Pulse Rhythm Pulse Rhythm [Apical] Pulse Strength [Apical] Respiratory Rate 22 19 19 Respiratory Effort / Characteristics Respiratory Depth Respiratory Pattern Blood Pressure 104/69 107/64 Blood Pressure [Right Arm] Blood Pressure Mean 80 78 Blood Pressure Mean [Right Arm] Blood Pressure Position Blood Pressure Position [Right Arm] Pulse Oximetry 97 96 96 Oxygen Delivery Method Room Air Room Air Room Air Sepsis Recent Fever Within 48 Hours Sepsis New/Unexplained Change in Mental Status Sepsis Action Taken by Nursing VITALS: Vitals are noted on the nurse's note and reviewed by myself. Vital signs stable. GENERAL: Pleasant gentleman, in no acute distress, nondiaphoretic, well- developed well-nourished. SKIN: The skin was without rashes, erythema, edema, or bruising. There is no tenting of the skin. Capillary reflex less than 2 seconds. HEAD: Normocephalic atraumatic. EARS: External auditory canals clear, EYES: Pupils equal round and reactive to light and accommodation. Conjunctivae without injection, sclerae without icterus. Extraocular movements intact. NOSE: Patent, turbinates without inflammation or discharge. MOUTH: Mucous membranes moist. Pharynx without erythema or exudate. Uvula midline. Airway patent. Tongue does not deviate. NECK: Supple without nuchal rigidity. No lymphadenopathy. No thyromegaly. Cervical spine is nontender. No JVD. HEART: Regular rate and rhythm LUNGS: Clear to auscultation bilaterally without wheezes, rales or rhonchi. No retractions or accessory muscle use. ABDOMEN: Positive bowel sounds x 4. Normal tympanic percussion. Soft, mild diffuse tenderness, without masses or organomegaly. Dubon sign negative. No guarding or rebound tenderness. No CVA tenderness MUSCULOSKELETAL: No muscle atrophy, erythema, or edema noted. NEURO: Patient was alert and oriented to person place and time. Normal sensation to light and sharp touch. No focal neurological deficits. Course Administered Medications Discontinued Medications Sodium Chloride (Nss 1000ml) 250 mls @ 999 mls/hr IV .Q16M ONE Stop: 11/30/22 21:54 Last Infusion: 11/30/22 22:40 Dose: 0 mls/hr Documented By: Admin: 11/30/22 22:18 Dose: 999 mls/hr Documented By: DARRON Piperacillin Sod/Tazobactam Sod (Zosyn) 4.5 gm in 120 mls @ 240 mls/hr IV NOW ONE Stop: 12/01/22 01:03 Last Admin: 12/01/22 01:28 Dose: 240 mls/hr Documented By: DARRON Ioversol (Optiray 350 100ml) 100 ml IV ONCE ONE Stop: 11/30/22 23:43 Last Admin: 11/30/22 23:42 Dose: 83 ml Documented By: HECTOR Medical Decision Making Medical Records Attestation: I reviewed the patient's medical records. Home Medications Current Medication List: was personally reviewed by me Laboratory Data Attestation: I reviewed the patient's lab results. 11/30/22 21:21 Lab Results 11/30/22 11/30/22 11/30/22 Range/Units 21:21 21:21 21:21 WBC 4.78 L (4.8-10.8) K/ul RBC 3.02 L (4.63-6.08) M/uL Hgb 9.3 L (14.0-18.0) g/dl Hct 28.8 L (40.1-51.0) % MCV 95.4 (80.0-100.0) fL MCH 30.8 (25.0-34.0) pg MCHC 32.3 (32.0-36.0) g/dL RDW Std Deviation 48.3 H (36.4-46.3) fL RDW Coeff of [place] 13.8 (11.5-14.5) % Plt Count 181 (130-400) K/uL MPV 10.9 (9.4-12.4) fL Immature Gran % (Auto) 0.4 % Neut % (Auto) 67.5 % Lymph % (Auto) 21.5 % Ferry % (Auto) 9.6 % Eos % (Auto) 0.4 % Baso % (Auto) 0.6 % Neut # (Auto) 3.22 (1.4-6.5) K/uL Lymph # (Auto) 1.03 L (1.2-3.4) K/uL Ferry # (Auto) 0.46 (0.24-0.82) K/uL Eos # (Auto) 0.02 (0-0.50) K/uL Baso # (Auto) 0.03 (0-0.2) K/uL Immature Gran # (Auto) 0.02 (0.00-0.02) K/uL Sodium 137 (136-145) mmol/L Potassium 4.7 (3.5-5.1) mmol/L Chloride 104 (98-107) mmol/L Carbon Dioxide 27 (21-32) mmol/L Anion Gap 6 (3-11) BUN 49 H (6-23) mg/dl Creatinine 1.11 (0.6-1.4) mg/dl Est Cr Clr Drug Dosing 58.8 ml/min Est GFR ( Amer) 72.3 ml/min Est GFR (Non-Af Amer) 62.4 ml/min BUN/Creatinine Ratio 44.1 H (10-20) Glucose 137 H (70-99(Fasting)) mg/dl Calcium 8.9 (8.5-10.1) mg/dl Magnesium 2.1 (1.7-2.4) mg/dl Total Bilirubin 0.5 (0.2-1.0) mg/dl AST 27 (13-39) U/L ALT 27 (7-52) U/L Alkaline Phosphatase 113 H (34-104) U/L Total Creatine Kinase 38 (30-223) U/L Troponin I High Sens 14.0 (0-20) pg/ml Total Protein 7.3 (6.0-8.3) gm/dl Albumin 3.5 (3.4-5.0) gm/dl Globulin 3.8 (2.5-4.0) gm/dl Albumin/Globulin Ratio 0.9 (0.9-2) TSH 2.439 (0.300-4.500) uIu/ml Urine Color Urine Appearance (Clear) Urine pH (4.5-7.5) Ur Specific [place] (1.000-1.030) Urine Protein (Negative) Urine Glucose (UA) (Negative) Urine Ketones (Negative) Urine Blood (Negative) Urine Nitrite (Negative) Urine Bilirubin (Negative) Urine Urobilinogen (Negative) Ur Leukocyte Esterase (Negative) Urine WBC (Auto) (0-5) /hpf Urine RBC (Auto) (0-4) /hpf U Hyaline Cast (Auto) (0-5) /lpf U Epithel Cells (Auto) (0-5) /lpf Urine Bacteria (Auto) (Negative) SARS-CoV-2 (PCR) SARS-CoV-2, RNA, NAAT (NEGATIVE) 11/30/22 11/30/22 11/30/22 Range/Units 21:39 22:10 23:16 WBC (4.8-10.8) K/ul RBC (4.63-6.08) M/uL Hgb (14.0-18.0) g/dl Hct (40.1-51.0) % MCV (80.0-100.0) fL MCH (25.0-34.0) pg MCHC (32.0-36.0) g/dL RDW Std Deviation (36.4-46.3) fL RDW Coeff of Ka[place] (11.5-14.5) % Plt Count (130-400) K/uL MPV (9.4-12.4) fL Immature Gran % (Auto) % Neut % (Auto) % Lymph % (Auto) % Ferry % (Auto) % Eos % (Auto) % Baso % (Auto) % Neut # (Auto) (1.4-6.5) K/uL Lymph # (Auto) (1.2-3.4) K/uL Ferry # (Auto) (0.24-0.82) K/uL Eos # (Auto) (0-0.50) K/uL Baso # (Auto) (0-0.2) K/uL Immature Gran # (Auto) (0.00-0.02) K/uL Sodium (136-145) mmol/L Potassium (3.5-5.1) mmol/L Chloride (98-107) mmol/L Carbon Dioxide (21-32) mmol/L Anion Gap (3-11) BUN (6-23) mg/dl Creatinine (0.6-1.4) mg/dl Est Cr Clr Drug Dosing ml/min Est GFR ( Amer) ml/min Est GFR (Non-Af Amer) ml/min BUN/Creatinine Ratio (10-20) Glucose (70-99(Fasting)) mg/dl Calcium (8.5-10.1) mg/dl Magnesium (1.7-2.4) mg/dl Total Bilirubin (0.2-1.0) mg/dl AST (13-39) U/L ALT (7-52) U/L Alkaline Phosphatase (34-104) U/L Total Creatine Kinase (30-223) U/L Troponin I High Sens (0-20) pg/ml Total Protein (6.0-8.3) gm/dl Albumin (3.4-5.0) gm/dl Globulin (2.5-4.0) gm/dl Albumin/Globulin Ratio (0.9-2) TSH (0.300-4.500) uIu/ml Urine Color Yellow Urine Appearance Clear (Clear) Urine pH 5.0 (4.5-7.5) Ur Specific [place] 1.019 (1.000-1.030) Urine Protein Negative (Negative) Urine Glucose (UA) Negative (Negative) Urine Ketones Negative (Negative) Urine Blood Negative (Negative) Urine Nitrite Negative (Negative) Urine Bilirubin Negative (Negative) Urine Urobilinogen Negative (Negative) Ur Leukocyte Esterase 1+ H (Negative) Urine WBC (Auto) 1-5 (0-5) /hpf Urine RBC (Auto) 0-4 (0-4) /hpf U Hyaline Cast (Auto) 1-5 (0-5) /lpf U Epithel Cells (Auto) 5-10 H (0-5) /lpf Urine Bacteria (Auto) Negative (Negative) SARS-CoV-2 (PCR) Cancelled SARS-CoV-2, RNA, NAAT NEGATIVE (NEGATIVE) 12/01/22 Range/Units 00:15 WBC (4.8-10.8) K/ul RBC (4.63-6.08) M/uL Hgb (14.0-18.0) g/dl Hct (40.1-51.0) % MCV (80.0-100.0) fL MCH (25.0-34.0) pg MCHC (32.0-36.0) g/dL RDW Std Deviation (36.4-46.3) fL RDW Coeff of [place] (11.5-14.5) % Plt Count (130-400) K/uL MPV (9.4-12.4) fL Immature Gran % (Auto) % Neut % (Auto) % Lymph % (Auto) % Ferry % (Auto) % Eos % (Auto) % Baso % (Auto) % Neut # (Auto) (1.4-6.5) K/uL Lymph # (Auto) (1.2-3.4) K/uL Ferry # (Auto) (0.24-0.82) K/uL Eos # (Auto) (0-0.50) K/uL Baso # (Auto) (0-0.2) K/uL Immature Gran # (Auto) (0.00-0.02) K/uL Sodium (136-145) mmol/L Potassium (3.5-5.1) mmol/L Chloride (98-107) mmol/L Carbon Dioxide (21-32) mmol/L Anion Gap (3-11) BUN (6-23) mg/dl Creatinine (0.6-1.4) mg/dl Est Cr Clr Drug Dosing ml/min Est GFR ( Amer) ml/min Est GFR (Non-Af Amer) ml/min BUN/Creatinine Ratio (10-20) Glucose (70-99(Fasting)) mg/dl Calcium (8.5-10.1) mg/dl Magnesium (1.7-2.4) mg/dl Total Bilirubin (0.2-1.0) mg/dl AST (13-39) U/L ALT (7-52) U/L Alkaline Phosphatase (34-104) U/L Total Creatine Kinase (30-223) U/L Troponin I High Sens 14.2 (0-20) pg/ml Total Protein (6.0-8.3) gm/dl Albumin (3.4-5.0) gm/dl Globulin (2.5-4.0) gm/dl Albumin/Globulin Ratio (0.9-2) TSH (0.300-4.500) uIu/ml Urine Color Urine Appearance (Clear) Urine pH (4.5-7.5) Ur Specific [place] (1.000-1.030) Urine Protein (Negative) Urine Glucose (UA) (Negative) Urine Ketones (Negative) Urine Blood (Negative) Urine Nitrite (Negative) Urine Bilirubin (Negative) Urine Urobilinogen (Negative) Ur Leukocyte Esterase (Negative) Urine WBC (Auto) (0-5) /hpf Urine RBC (Auto) (0-4) /hpf U Hyaline Cast (Auto) (0-5) /lpf U Epithel Cells (Auto) (0-5) /lpf Urine Bacteria (Auto) (Negative) SARS-CoV-2 (PCR) SARS-CoV-2, RNA, NAAT (NEGATIVE) Imaging Data Attestation: I personally reviewed and interpreted this imaging study as follows: MDM Narrative Prior records/ancillary studies reviewed and summarized above. Nursing notes reviewed. Additional history obtained from nursing. The patient's history was concerning for generalized weakness. Differential diagnosis: Etiologies such as metabolic, infection, hypo/hyperglycemia, electrolyte a bnormalities, cardiac sources, intracerebral event, toxicologic, neurologic, as well as others were entertained. Physical examination: As above. ER treatment provided: IV Lock An order was placed for continuous cardiac monitoring. The monitor shows a rate of 60-1 50 with a sinus rhythm per my interpretation. IV fluids, Zosyn On reassessment the patient felt better. Diagnostics interpretation by me: ECG: Ordered for weakness EKG: Poor baseline, normal sinus, Q waves in the inferior leads, rate of 93. Impression poor baseline Q waves in inferior leads normal sinus interpreted by myself I think arrhythmia is unlikely. EKG shows normal sinus rhythm with no interval abnormalities such as QT prolongation or WPW. There are no findings to suggest Brugada syndrome. Cardiac monitoring in the emergency department reveals no tachycardic or bradycardic dysrhythmia. Hypertrophic cardiomyopathy was considered but there are no clear historical elements pointing toward this. EKG is not suggestive. The QRS voltage is not extremely large The labs revealed negative urine, euthyroid Mild hyperglycemia without DKA Anemia slightly trending down Two negative troponins Imaging studies: Chest x-ray with no acute consolidation, pneumothorax or free air per my interpretation CT ABDOMEN & PELVIS With Contrast: No bowel obstruction or inflammation. Normal appendix. Negative for diverticulitis or colitis. Normal liver. No calcified gallstones. Normal spleen. Normal pancreas. Normal adrenal glands. Renal cysts. No acute renal abnormality or urinary tract obstruction. Slightly enlarged prostate. No free intraperitoneal air or free fluid. Osseous structures are intact. Small hiatal hernia. Mild atelectatic changes at the left lung base. There are small groundglass opacities at the right lung base anteriorly and at the left lung base posteromedially.. Although nonspecific, they could represent pneumonia (nonspecific as to pneumonia type). Recommend evaluation for pneumonia Radiologist: David Riley MD Consultation: A consultation was placed with the hospitalist. The case was discussed and diagnostics were reviewed. The patient was evaluated in the ER for further treatment. Exam and history seem consistent with weakness with pneumonia. Patient was started antibiotics. Labs and imaging was ordered as patient was quite weak and having pain. This was reviewed. No signs of ischemia on EKG. No worrisome leukocytosis. Negative COVID. Patient will be admitted to the medical service and medicine was consulted. Case was discussed with the admitting team. By the evaluation outlined above emergent etiologies such as electrolyte abnormalities, cardiac sources, intracerebral event, toxologic, neurologic, abnormalities blood glucose, metabolic, as well as others were deemed relatively unlikely. The pt informed about the findings as listed above. All questions were answered and pleased with the treatment. The chart was completed utilizing [employer] Speech voice recognition software. Grammatical errors, random word insertions, pronoun errors, and incomplete sentences are an occassional consequence of this system due to software limitations, ambient noise, and hardware issues. Any formal questions or concerns about the content, text, or information contained within the body of this dictation should be directly addressed to the physician veterinary assistant for clarification. Attending Attestation: Rusty Robles MD independently saw and evaluated this patient and agree w ith history and physical is otherwise documented by the physician veterinary assistant. See their note for full details. Patient resting in bed in no distress on room air. Ongoing issues with weakness. Blood work and imaging without severe abnormality questions possibly some pneumonia. Patient has been having increased weakness and will be evaluated with the hospitalist for further observation here given this. Impression & Plan Pneumonia, Weakness Discharge Plan Visit Data Chief Complaint: Illness Stated Complaint: DIZZINESS ED Provider: Clive Robles ED Midlevel Provider: Coby Brooks Discharge Problem: Pneumonia, Weakness Patient Disposition: Admitted As Inpatient Condition: Good Forms Stand Alone Forms: Virtual Emergency Department, Important Visit Information Prescriptions Prescriptions: No Action lisinopril 20 mg tablet 20 mg PO QAM clopidogrel 75 mg tablet 75 mg PO DAILY nitroglycerin 0.4 mg tablet, sublingual 0.4 mg sublingual UD PRN (Reason: Chest Pain) Rx Instructions: Take one nitro every 5 minutes up to three doses as needed for chest pain metoprolol succinate 25 mg tablet extended release 24 hr 25 mg PO QAM atorvastatin 80 mg tablet 80 mg PO QPM benzonatate 100 mg capsule 100 mg PO TID PRN (Reason: Cough) PreserVision AREDS-2 250-90-40-1 mg Capsule 1 tab PO BID amlodipine 2.5 mg tablet 2.5 mg PO DAILY hydrocortisone 2.5 % cream with perineal applicator 1 applic MS BID PRN (Reason: irritation) aspirin 81 mg tablet,delayed release (DR/EC) 81 mg PO QAM acetaminophen [Tylenol Extra Strength] 500 mg Tablet 1,000 mg PO Q6H PRN (Reason: Pain) ipratropium-albuterol 0.5 mg-3 mg(2.5 mg base)/3 mL Solution For Nebulization 3 ml NEB Q6H PRN (Reason: sob/wheezing) Qty: 90 0RF Referrals Referrals: Sai Mason MD [Primary Care Provider] - : Pneumonia Qualifiers: Pneumonia type: due to unspecified organism Laterality: unspecified laterality Lung location: unspecified part of lung Qualified Code(s): J18.9 - Pneumonia, u nspecified organism
[2022-11-30 22:41] LABS: Basophils # (auto) 0.03 K/uL (0-0.2); Basophils % (auto) 0.6 %; Eosinophils # (auto) 0.02 K/uL (0-0.50); Eosinophils % (auto) 0.4 %; Hematocrit (blood only) 28.8 % (40.1-51.0); Hemoglobin 9.3 g/dl (14.0-18.0); Immature Granulocytes # (auto) 0.02 K/uL (0.00-0.02); Immature Granulocytes % (auto) 0.4 %; Lymphocytes # (auto) 1.03 K/uL (1.2-3.4); Lymphocytes % (auto) 21.5 %; Mean Corpuscular Hemoglobin 30.8 pg (25.0-34.0); Mean Corpuscular Hgb Conc 32.3 g/dL (32.0-36.0); Mean Corpuscular Volume 95.4 fL (80.0-100.0); Mean Platelet Volume 10.9 fL (9.4-12.4); Monocytes # (auto) 0.46 K/uL (0.24-0.82); Monocytes % (auto) 9.6 %; Neutrophils # (auto) 3.22 K/uL (1.4-6.5); Neutrophils % (auto) 67.5 %; Platelet Count 181 K/uL (130-400); RDW Coefficient of Variation 13.8 % (11.5-14.5); RDW Standard Deviation 48.3 fL (36.4-46.3); Red Blood Count 3.02 M/uL (4.63-6.08); White Blood Count 4.78 K/ul (4.8-10.8)
[2022-11-30] MEDS ORDERED: OPTIRAY 350 100ml IV ONE (23:42)
[2022-12-01] MEDS ORDERED: PIPERACILLIN/TAZOBACTAM 4.5 GM/120 ML BAG IV ONE (00:34)
[2022-12-01] MEDS ORDERED: SODIUM CHLORIDE 0.9% 500 ML IV STA (03:36)
[2022-12-01] MEDS ORDERED: HYDROCORTISONE HC 2.5% CRM 30GM TUBE EXT PRN (03:54)
[2022-12-01] MEDS ORDERED: BENZONATATE 100 MG CAPSULE PO PRN (03:54)
[2022-12-01] MEDS ORDERED: ACETAMINOPHEN 325 MG TAB PO PRN (03:54)
[2022-12-01] MEDS ORDERED: ALBUT/IPRATROP 3MG/0.5MG NEB 3 ML VIAL NEB PRN (03:54)
[2022-12-01] MEDS ORDERED: NITROGLYCERIN SL 0.4 MG/TAB TAB SL PRN ×2 (03:54)
[2022-12-01] MEDS ORDERED: SODIUM CHLORIDE 0.9% 1000ML 1,000 ML IV SCH (03:54)
--- NOTE | 2022-12-01 05:32 | History and Physical Report ---
DATE OF ADMISSION: 12/01/2022 CHIEF COMPLAINT: Dizziness, not feeling well. HISTORY OF PRESENT ILLNESS: This is an 82-year-old male with past medical history significant for hyperlipidemia, prediabetes, hypertension, moderate aortic stenosis, chronic systolic CHF, EF of 45-48%, history of CAD, valvular heart disease, chronic kidney disease stage III, , past tobacco abuse, presents with dizziness and not feeling well. It looks like the patient has recurrent admissions for pneumonia and last, he was recently here in October, was observed for near syncope. CAT scan of the abdomen showed enterocolitis on last admission. Lives at home with his , ambulates with a cane. He says today he was not feeling well and feeling dizzy. Denies any cough, denies any fever, denies any runny nose, no sore throat. Somewhat hard of hearing. No blurred vision or double visions. No chest pain, no shortness of breath, no nausea, no abdominal pain. Normal bowel and bladder movements. Denies any burning micturition or hematuria. Currently, resting comfortably and hemodynamically stable. ALLERGIES: No known drug allergies. PAST MEDICAL HISTORY: As mentioned above. PAST SURGICAL HISTORY: Cardiac catheterization, Cysto/ureteroscopy history of lasering of secondary cataract. MEDICATIONS: The patient is on Tylenol 1000 mg p.o. q. 6 hours p.r.n., amlodipine 2.5 mg p.o. daily, aspirin 81 mg p.o. daily, atorvastatin 80 mg p.o. p.m., benzonatate 100 mg p.o. t.i.d. p.r.n., Plavix 75 mg p.o. daily, hydrocortisone MD b.i.d. p.r.n., DuoNeb q. 6 hours p.r.n., lisinopril 20 mg p.o. a.m., metoprolol succinate 25 mg p.o. a.m., nitroglycerin 0.4 mg sublingual p.r.n., PreserVision AREDS one tablet p.o. b.i.d. FAMILY HISTORY: Significant for brother has heart disorder; sister has heart disorder. SOCIAL HISTORY: . Former cigar smoker. No alcohol, no drug use. REVIEW OF SYSTEMS: As per HPI. Rest of the review of systems is negative. PHYSICAL EXAMINATION: GENERAL: The patient is old and frail, not in acute distress. VITAL SIGNS: Temperature 36.4, pulse 74, respiratory rate 22, blood pressure 96/50, oxygen 96% on room air. HEENT: Pupils equal, round and reactive to light. Oral mucosa moist. NECK: No JVD, no neck masses. CARDIOVASCULAR: S1 and S2 heard. Regular rate and rhythm. No murmur, no gallop. RESPIRATORY SYSTEM: Normal AP diameter. No accessory muscle use. No wheezing, no crackles. ABDOMEN: Soft, bowel sounds present, nontender, no distention. CENTRAL NERVOUS SYSTEM: Alert and oriented. Speech is clear. No facial droop. Obeys simple commands. Insight is okay. Moves extremities. EXTREMITIES: Trace pedal edema, no erythema seen. LABORATORY DATA: WBC 4.7, hemoglobin 9.3, hematocrit 28.8, platelets 181. Sodium 137, potassium 4.7, chloride 104, bicarbonate 27, BUN 49, creatinine 1.1, serum glucose 137, calcium 8.9, magnesium 2.1, total bilirubin 0.5, AST 27, ALT 27, alkaline phosphatase 113, total creatine kinase 38. Troponin I high sensitivity 14 and repeat is 14.2, TSH is 2.4. Urinalysis, +1 leukocyte esterase, bacteria negative. SARS-CoV-2 rapid test negative. IMAGING DATA: Chest x-ray, no acute findings. CT abdomen and pelvis preliminary report, questionable small ground-glass opacity at the right lung base anteriorly and in the left lung base posteromedially, questionable pneumonia. EKG: Normal sinus rhythm at a rate of 90, nonspecific ST abnormalities. ASSESSMENT AND PLAN: This is an 82-year-old male who presents with dizziness, not feeling well. 1. Dizziness and not feeling well. Blood pressure running on the low side. We will check orthostatics. We will give some gentle fluids, 1 L. Question of UTI with leukocyte esterase positive but bacteria negative. Follow the urine cultures. Follow the blood cultures. CAT scan of the abdomen and pelvis is showing possible pneumonia, right lung base. ER empirically gave Zosyn. Chest x-ray looks okay. The patient has no cough, afebrile. We will CT chest to get a better picture. For now, we will continue with zosyn and follow CT chest and follow his orthostatics. Monitor in the tele floor. 2. History of chronic systolic congestive heart failure, EF of 45-48%, on lisinopril and metoprolol succinate. Not on any diuretics. Getting gentle fluids, monitor for any volume overload. 3. History of hypertension, on amlodipine, lisinopril and metoprolol succinate to give with holding parameters.. We will monitor blood pressure.Running low and received a fluid bolus. 4. Hyperlipidemia, on statin. 5. History of coronary artery disease, on statin, metoprolol, aspirin and Plavix. 6. Prediabetes. Diabetic diet. HbA1c of 6.2 in September 2022. 7. History of tobacco abuse. 8. History of right middle lobe opacity in the previous CT scan. We will follow today's CT scan results. 9. Anemia, hemoglobin 9.3. We will check the stool for Hemoccult, iron studies, vitamin B12, and folate levels. 10. Deep venous thrombosis prophylaxis: Placed on heparin subcutaneous. Job ID: [id number] [facility]
[2022-12-01] MEDS ORDERED: ONDANSETRON INJ 2 MG/ML 2 ML VIAL IV PRN (07:29)
[2022-12-01] MEDS: PIPERACILLIN/TAZOBACTAM 3.375 GM in DEXTROSE 5% 100 ML IV SCH ×2 (07:43→16:27)
[2022-12-01 07:46] LABS: Basophils # (auto) 0.02 K/uL (0-0.2); Basophils % (auto) 0.4 %; Eosinophils # (auto) 0.05 K/uL (0-0.50); Eosinophils % (auto) 0.9 %; Hematocrit (blood only) 24.9 % (40.1-51.0); Hemoglobin 8.2 g/dl (14.0-18.0); Immature Granulocytes # (auto) 0.01 K/uL (0.00-0.02); Immature Granulocytes % (auto) 0.2 %; Lymphocytes # (auto) 1.03 K/uL (1.2-3.4); Mean Corpuscular Hemoglobin 31.4 pg (25.0-34.0); Mean Corpuscular Hgb Conc 32.9 g/dL (32.0-36.0); Mean Corpuscular Volume 95.4 fL (80.0-100.0); Mean Platelet Volume 10.4 fL (9.4-12.4); Monocytes # (auto) 0.46 K/uL (0.24-0.82); Monocytes % (auto) 8.5 %; Neutrophils # (auto) 3.84 K/uL (1.4-6.5); Platelet Count 154 K/uL (130-400); RDW Coefficient of Variation 14.2 % (11.5-14.5); RDW Standard Deviation 49.7 fL (36.4-46.3); Red Blood Count 2.61 M/uL (4.63-6.08); White Blood Count 5.41 K/ul (4.8-10.8)
--- NOTE | 2022-12-01 07:51 | CT Scan Report ---
CT abd pelvis IV con only CLINICAL HISTORY: nausea, weak TECHNIQUE: Helical axial images of the abdomen and pelvis were obtained and displayed. Automated dose lowering techniques and/or adjustment according to patient size were utilized for this exam. This e xam was performed with intravenous contrast. CT DOSE: 859.70 mGy.cm COMPARISON: Comparison is made to CT abdomen and pelvis 11/06/2022 FINDINGS: Lower chest: For findings above the diaphragm, please see CT chest performed same day. Liver: Unremarkable. No focal lesions are seen. Gallbladder and biliary tree: No calcified gallstones. Normal caliber wall. No intra- or extrahepatic biliary ductal dilation. Pancreas: Unremarkable, no focal lesions. Spleen: Unremarkable. Adrenals: Unremarkable. Kidneys and ureters: A left renal cyst measures 15 mm in diameter. Bladder: Limited evaluation due to underdistention. Reproductive organs: Unremarkable. Bowel: Unremarkable appearance of the bowel. The appendix is normal. A small hiatal hernia is seen. Lymph nodes Retroperitoneal: Subcentimeter lymph nodes are noted. Pelvic: Subcentimeter lymph nodes are noted. Mesenteric: Unremarkable. Peritoneum: Normal. Vessels: Atherosclerotic calcifications are seen. Abdominal wall: A fat-containing umbilical hernia is seen. Bones: Degenerative changes in the visualized spine. IMPRESSION: No acute abnormalities and in particular no evidence of bowel obstruction or appendicitis. Please see CT chest for findings above the diaphragm. ACT 112: Negative or not required by law. Electronically signed by: Shawn Camejo M.D. 12/01/2022 7:50 AM
[2022-12-01 08:06] LABS: Iron 57 mcg/dl (35-175); Total Iron Binding Cap Calc 208 mcg/dl (250-450); Transferrin (FE) Percent Satur 27 % (20-50); Unsaturated Iron Binding Cap 151 mcg/dl (155-355)
[2022-12-01 08:07] LABS: Calcium 7.9 mg/dl (8.5-10.1); Est GFR (African American) 75.6 ml/min; Est GFR (Non-African American) 65.2 ml/min; Potassium 4.6 mmol/L (3.5-5.1)
[2022-12-01 08:13] LABS: Troponin I High Sensitivity 13.9 pg/ml (0-20)
--- NOTE | 2022-12-01 08:15 | CT Scan Report ---
CT chest diagnostic wo con CLINICAL HISTORY: right lower lobe infiltrates? TECHNIQUE: Multidetector row helical CT of the chest was performed. Coronal and sagittal reformations were obtained. Automated dose lowering techniques and/or adjustment according to patient size were u tilized for this exam. CT DOSE: 643.77 mGy.cm Comparison: Comparison is made to CT chest 09/17/2022 FINDINGS: Lungs and pleura: 20 mm groundglass nodule in the right middle lobe is seen (series 4 image 12) this is new from prior exam. There is also interval development of tree in bud nodules in the left lower l obe. Bronchial wall thickening. Heart and pericardium: Aortic valvular calcifications are seen. There is mild cardiomegaly. Vessels: Moderate atherosclerotic changes in the aorta and coronary arteries. Mediastinum and alison: Unremarkable. Chest wall and lower neck: Unremarkable. Abdomen: For findings below the diaphragm, please refer to CT of the abdomen dated the same. Bones: Degenerative changes in the thoracic spine. IMPRESSION: 1. Bilateral groundglass densities, new from prior exam, favored to represent pneumonia. 2. Peribronchial thickening compatible with bronchitis/reactive airway disease. ACT 112: Negative or not required by law. Electronically signed by: Shawn Camejo M.D. 12/01/2022 8:12 AM
[2022-12-01] MEDS ORDERED: lisinopril 20 MG TAB PO SCH (09:00)
[2022-12-01] MEDS ORDERED: ASPIRIN 81 MG ECTAB PO SCH (09:00)
[2022-12-01] MEDS ORDERED: amLODIPine BESYLATE 5 MG TAB PO SCH (09:00)
--- NOTE | 2022-12-01 09:06 | XRay Report ---
XR chest 1V portable HISTORY: weakness COMPARISON: Chest 11/06/2022. FINDINGS: No focal lung consolidations. No evidence for pulmonary edema. No pneumothorax. No pleural effusions. The heart is normal in size. IMPRESSION: No acute process. ACT 112: Negative or not required by law. Electronically signed by: Jagjit Patino M.D. 12/01/2022 9:05 AM
[2022-12-01] MEDS: CEROVITE ADV FORMULA TAB PO SCH ×2 (09:29→20:08)
[2022-12-01] MEDS: CLOPIDOGREL BISULFATE 75 MG TAB PO SCH (09:29)
[2022-12-01] MEDS: METOPROLOL SUCC 25MG EXT REL TAB PO SCH (09:29)
[2022-12-01] MEDS: DOXYCYCLINE HYCLATE 100 MG in DEXTROSE 5% 100 ML IV SCH ×2 (10:18→20:45)
--- NOTE | 2022-12-01 11:14 | Electrocardiogram Report ---
Test Reason : Blood Pressure : / mmHG Vent. Rate : 093 BPM Atrial Rate : 093 BPM P-R Int : 184 ms QRS Dur : 090 ms QT Int : 332 ms P-R-T Axes : 072 068 004 degrees QTc Int : 412 ms Poor data quality, interpretation may be adversely affected Normal sinus rhythm Nonspecific ST and T wave abnormality Abnormal ECG When compared with ECG of 06-NOV-2022 16:51, No significant change Reconfirmed by Buster Perry ([id number]) on 12/01/2022 11:14:55 AM Referred By: REFERRED SELF Confirmed By:Buster Perry
--- NOTE | 2022-12-01 16:45 | Hospitalist Progress Note ---
Date of Service December 01, 2022 Assessment & Plan (1) Near syncope: Plan: Patient is an 82 yr male who presents with dizziness, not feeling well. Dizziness Orthostatic Hypotension Valvular Heart disease -ECHO reviewed Amlodipine discontinued Decrease lisinopril to 10 mg daily Continue metoprolol for now Received gentle IV fluids Monitor BP Will need evaluation by cardiology as outpatient Currently acquired pneumonia Negative COVID Screen --CT Chest:Bilateral groundglass densities, new from prior exam, favored to represent pneumonia. Peribronchial thickening compatible with bronchitis/reactive airway disease. -- Blood, urine culture pending Continue Zosyn, doxycycline Chronic anemia No obvious source of bleeding Anemia work-up reviewed Check fecal occult Monitor CBC Chronic Systolic and diastolic heart failure EF 55-60%, grade 1 diastolic dysfunction Continue lisinopril, metoprolol Not on any diuretics Monitor Volume status Hypertension BP low Amlodipine discontinues lisinopril decreased to 10mg daily Continue metoprolol succinate with holding parameters Hyperlipidemia on statin CAD Continue statin, metoprolol, aspirin and Plavix. Prediabetes Diabetic diet HbA1c of 6.2 in September 2022. H/O Tobacco abuse. DVT Px: SCDs Admission and Anticipated Discharge Date Admission Date: December 01, 2022 Subjective Patient is seen and examined at bedside States having nausea earlier today Also reports intermittent cough No dizziness today Denies any shortness of breath, chest pain Feels tired Discussed with patient's over the phone No other complaints Review of Systems Review of Systems: All systems reviewed & are unremarkable except as noted in Subjective Physical Exam Physical Exam: Physical Exam: Vitals signs as noted above General Appearance:Moderately built and nourished, Elderly, no apparent distress Head: normocephalic, Atraumatic Eyes: normal inspection, EOMI Neck: supple, Trachea midline Respiratory/Chest: Decreased breath sounds bases, No accessory muscle use Cardiovascular: S1, S2, + murmur Abdomen/GI:Soft, Non tender, Bowel sounds present Extremities/Musculoskeletal:normal inspection, 1+ LE edema Neurologic/Psych:AAOX3, grossly no focal neurological deficits Skin: normal color, warm Results & Data Results & Data ([facility]) Vital Signs (Past 12 Hours) Vital Signs Temp Pulse Pulse Resp BP Pulse Ox O2 Del Method 12/01/22 15:30 36.8 C 72 19 96/50 L 93 Room Air 12/01/22 10:57 36.7 C 73 18 108/68 94 Room Air 12/01/22 09:22 72 12/01/22 07:09 36.5 C 96 H 19 145/81 H 93 Room Air Laboratory Results Short CBC 11/30/22 12/01/22 Range/Units 21:21 07:29 WBC 4.78 L 5.41 (4.8-10.8) K/ul Hgb 9.3 L 8.2 L (14.0-18.0) g/dl Hct 28.8 L 24.9 L (40.1-51.0) % Plt Count 181 154 (130-400) K/uL BMP 11/30/22 12/01/22 21:21 07:29 Sodium 137 139 Potassium 4.7 4.6 Chloride 104 110 H Carbon Dioxide 27 24 BUN 49 H 46 H Creatinine 1.11 1.07 Glucose 137 H 129 H Calcium 8.9 7.9 L Cardiac Enzymes 11/30/22 Range/Units 21:21 Total Creatine Kinase 38 (30-223) U/L Liver Function 11/30/22 Range/Units 21:21 Total Bilirubin 0.5 (0.2-1.0) mg/dl AST 27 (13-39) U/L ALT 27 (7-52) U/L Alkaline Phosphatase 113 H (34-104) U/L Albumin 3.5 (3.4-5.0) gm/dl Urine 11/30/22 Range/Units 21:39 Urine Color Yellow Urine Appearance Clear (Clear) Urine pH 5.0 (4.5-7.5) Ur Specific [place] 1.019 (1.000-1.030) Urine Protein Negative (Negative) Urine Glucose (UA) Negative (Negative)
[2022-12-01] MEDS: ATORVASTATIN 40 MG TAB PO SCH (20:08)
[2022-12-02] MEDS: PIPERACILLIN/TAZOBACTAM 3.375 GM in DEXTROSE 5% 100 ML IV SCH ×4 (02:07→23:24)
[2022-12-02 06:30] LABS: Hematocrit (blood only) 21.2 % (40.1-51.0); Hemoglobin 6.8 g/dl (14.0-18.0); Mean Corpuscular Hemoglobin 31.2 pg (25.0-34.0); Mean Corpuscular Hgb Conc 32.1 g/dL (32.0-36.0); Mean Corpuscular Volume 97.2 fL (80.0-100.0); Mean Platelet Volume 11.3 fL (9.4-12.4); Platelet Count 116 K/uL (130-400); RDW Coefficient of Variation 14.1 % (11.5-14.5); RDW Standard Deviation 50.2 fL (36.4-46.3); Red Blood Count 2.18 M/uL (4.63-6.08); White Blood Count 3.88 K/ul (4.8-10.8)
[2022-12-02 06:36] LABS: BUN Creatinine Ratio 39.5 (10-20); Calcium 8.2 mg/dl (8.5-10.1); Creatinine Clr Calc Pharmacy 54.1 ml/min; Est GFR (African American) 66.5 ml/min; Est GFR (Non-African American) 57.3 ml/min; Potassium 5.1 mmol/L (3.5-5.1)
[2022-12-02] MEDS ORDERED: SODIUM CHLORIDE 0.9% 250 ML IV PRN (06:45)
--- NOTE | 2022-12-02 06:46 | Communication Note ---
Date of Service: December 02, 2022 Made aware by RN of a.m. hemoglobin of 6.8. Patient denies chest pain, SOB, abdominal pain, gross black/bloody stools. FOBT dark stool heme positive AP Acute on chronic anemia Occult GI bleed Transfuse PRBC to maintain hemoglobin greater than 8 (hx CAD) Hold aspirin for now GI consult Re: Occult GI bleed N.p.o. until patient seen by GI Will relay to AM provider.
[2022-12-02] MEDS ORDERED: SODIUM CHLORIDE 0.9% 500 ML IV ONE (07:51)
[2022-12-02] MEDS: DOXYCYCLINE HYCLATE 100 MG in DEXTROSE 5% 100 ML IV SCH ×2 (08:19→21:49)
[2022-12-02] MEDS: CEROVITE ADV FORMULA TAB PO SCH ×2 (08:20→20:58)
[2022-12-02] MEDS: METOPROLOL SUCC 25MG EXT REL TAB PO SCH (08:21)
--- NOTE | 2022-12-02 08:26 | Electrocardiogram Report ---
Test Reason : Blood Pressure : / mmHG Vent. Rate : 074 BPM Atrial Rate : 064 BPM P-R Int : 000 ms QRS Dur : 094 ms QT Int : 414 ms P-R-T Axes : 000 117 066 degrees QTc Int : 459 ms Poor data quality, interpretation may be adversely affected Probable Sinus rhythm Diffuse Nonspecific ST and T wave abnormality Abnormal ECG When compared with ECG of 30-NOV-2022 21:17, No significant change Confirmed by Everett Ambriz ([id number]) on 12/02/2022 8:25:58 AM Referred By: REFERRED SELF Confirmed By:Everett Ambriz
[2022-12-02] MEDS ORDERED: FUROSEMIDE INJ 20 MG/2 ML VIAL IV ONE (08:43)
[2022-12-02] MEDS ORDERED: lisinopril 10 MG TAB PO SCH (09:00)
[2022-12-02] MEDS ORDERED: PANTOprazole 40 MG in SYRINGE 0 ML IV SCH (09:00)
[2022-12-02] MEDS ORDERED: PANTOprazole 40 MG in DEXTROSE 5% 100 ML IV SCH (11:00)
--- NOTE | 2022-12-02 11:14 | Gastrointestinal Consultation ---
Date of Consultation December 02, 2022 Assessment & Plan (1) Pneumonia: (2) Anemia: (3) Fecal occult blood test positive: Pt is a 82 yo male w hx of CHF, CAD on ASA and Plavix currently admitted for pneumonia, seen for anemia w symptoms of dark stools w positive FOBT. - NPO - PPI bolus and gtt - Plan for EGD eval by Dr. Florian today - Agree with PRBC transfusion, monitor blood ct closely Supervising Physician Co-Signing Physician Notes I have personally seen and examined the patient with ALBARO Seay. Her note reflects my exam and findings. I agree with her impression and plan. Most c/w UGI bleeding from PUD from ASA/Plavix. Transfuse, IV PPI, NPO, and will arrange EGD. Gabriel Florian M.D. History of Present Illness Reason for Consultation: GI bleed Requesting Physician: Dr. Valdemar Phillips Attending Physician: Dr. Gabriel Florian History of Present Illness Pt is a 82 yo male w PMHx of HLD, HTN, moderate aortic stenosis, chronic systolic CHF, EF of 45-48%, history of CAD on ASA and Plavix, valvular heart disease, chronic kidney disease stage III who presented with dizziness and general feeling of unwell. Hx of recent admission for pneumonia. On eval, noted to be anemic and CT chest w signs of pneumonia. Pt denies fever, chills, CP, SOB, abd pain, n/v. Stools had been brown 2 days ago. This morning, however noted his Hgb had dropped from 9 to 6 and upon exam, stools were dark and FOBT was positive. He is getting 1st unit of PRBC, planning for 2U PRBC total. GI consulted for GI bleeding concern. Pt denies any NSAIDs uses. He has never had EGD or colonoscopy before. CT abd/pelvis unremarkable. Allergies Allergy/AdvReac Type Severity Reaction Status Date / Time No Known Allergies Allergy Unknown Unverified 11/30/22 22:46 Home Medications Medication Instructions Recorded Confirmed Type acetaminophen 500 mg tablet 1,000 mg PO Q6H PRN Pain 10/10/21 11/30/22 History (Tylenol Extra Strength) aspirin 81 mg tablet,delayed 81 mg PO QAM 10/10/21 11/30/22 History release clopidogrel 75 mg tablet 75 mg PO DAILY 09/17/22 11/30/22 History lisinopril 20 mg tablet 20 mg PO QAM 09/17/22 11/30/22 History metoprolol succinate 25 mg 25 mg PO QAM 09/17/22 11/30/22 History tablet,extended release 24 hr nitroglycerin 0.4 mg sublingual 0.4 mg sublingual UD PRN Chest Pain 09/17/22 11/30/22 History tablet ipratropium 0.5 mg-albuterol 3 mg 3 ml NEB Q6H PRN sob/wheezing #90 09/24/22 11/30/22 Rx (2.5 mg base)/3 mL nebulization mL soln atorvastatin 80 mg tablet 80 mg PO QPM 11/06/22 11/30/22 History benzonatate 100 mg capsule 100 mg PO TID PRN Cough 11/06/22 11/30/22 History vit C 250 mg-vit E 90 mg-zinc 40 1 tab PO BID 11/06/22 11/30/22 History mg-copper 1 [id number] capsule (PreserVision AREDS-2) amlodipine 2.5 mg tablet 2.5 mg PO DAILY 11/30/22 11/30/22 History hydrocortisone 2.5 % topical cream 1 applic [place] BID PRN irritation 11/30/22 11/30/22 History with perineal applicator Patient History Medical History CAD (coronary artery disease) CKD (chronic kidney disease), stage III Dyslipidemia Encounter for pre-operative examination HTN (hypertension) with goal to be determined Moderate aortic stenosis Surgical History H/O lithotripsy History of cataract surgery S/P cardiac catheterization Family History Sister Heart disease Brother Heart disease Social History Smoking Status: Former smoker Tobacco Type: Cigars Second Hand Exposure: No; Hx Alcohol Use: Yes Alcohol type: hard liquor Hx Substance Use: No Preferred Language: [place] Communication Ability: Effective 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 Cardiovascular: RRR, no murmur, no edema Gastrointestinal (Abdomen): normal bowel sounds, soft, nontender, no hepatosplenomegaly Skin: no rashes, warm and dry no jaundice Psychiatric: A+Ox3, euthymic affect Lymphatic: no lymphedema Results & Data ([facility]) Vital Signs (Past 12 Hours) Vital Signs Temp Pulse Pulse Resp BP BP Pulse Ox 12/02/22 10:25 36.9 C 79 20 99/63 L 95 12/02/22 09:55 36.8 C 78 20 95/60 L 94 12/02/22 09:54 36.8 C 80 18 101/62 95 12/02/22 09:41 36.8 C 81 20 101/62 93 12/02/22 09:40 36.7 C 83 20 100/61 92 12/02/22 08:48 36.7 C 95 H 18 104/67 93 12/02/22 03:45 36.8 C 100 H 20 93/58 L 98 O2 Del Method 12/02/22 10:25 12/02/22 09:55 12/02/22 09:54 12/02/22 09:41 12/02/22 09:40 12/02/22 08:48 Room Air 12/02/22 03:45 Room Air (1) Pneumonia Laterality: unspecified laterality Lung location: unspecified part of lung Pneumonia type: due to unspecified organism Qualified Code(s): J18.9 - Pneumonia, unspecified organism
--- NOTE | 2022-12-02 11:18 | Anesthesiology Consultation ---
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 Consults Requested none History Surgery Operation Date: 12/02/22 16:45 Proposed Procedures p Esophagogastroduodenoscopy Dr Anival Florian MD Height/Weight Height: 5 ft 9 in Weight: 87.2 kg Allergies Allergy/AdvReac Type Severity Reaction Status Date / Time No Known Allergies Allergy Unknown Unverified 11/30/22 22:46 Medications Home Medications Medication Instructions Recorded Confirmed Last Taken acetaminophen 500 mg tablet 1,000 mg PO Q6H PRN Pain 10/10/21 11/30/22 10/09/21 (Tylenol Extra Strength) aspirin 81 mg tablet,delayed 81 mg PO QAM 10/10/21 11/30/22 10/10/21 release clopidogrel 75 mg tablet 75 mg PO DAILY 09/17/22 11/30/22 Unknown lisinopril 20 mg tablet 20 mg PO QAM 09/17/22 11/30/22 Unknown metoprolol succinate 25 mg 25 mg PO QAM 09/17/22 11/30/22 Unknown tablet,extended release 24 hr nitroglycerin 0.4 mg sublingual 0.4 mg sublingual UD PRN Chest Pain 09/17/22 11/30/22 Unknown tablet ipratropium 0.5 mg-albuterol 3 mg 3 ml NEB Q6H PRN sob/wheezing #90 09/24/22 11/30/22 Unknown (2.5 mg base)/3 mL nebulization mL soln atorvastatin 80 mg tablet 80 mg PO QPM 11/06/22 11/30/22 Unknown benzonatate 100 mg capsule 100 mg PO TID PRN Cough 11/06/22 11/30/22 Unknown vit C 250 mg-vit E 90 mg-zinc 40 1 tab PO BID 11/06/22 11/30/22 Unknown mg-copper 1 [id number] capsule (PreserVision AREDS-2) amlodipine 2.5 mg tablet 2.5 mg PO DAILY 11/30/22 11/30/22 Unknown hydrocortisone 2.5 % topical cream 1 applic IN BID PRN irritation 11/30/22 11/30/22 Unknown with perineal applicator Active Medications Generic Name Dose Route Start Last Admin Trade Name Freq PRN Reason Stop Dose Admin Aspirin 81 mg 12/01/22 09:00 12/01/22 09:29 Aspirin 81 Mg Ectab PO 12/31/22 08:59 81 mg QAM OPAL Administration Atorvastatin Calcium 80 mg 12/01/22 21:00 12/01/22 20:08 Atorvastatin 40 Mg Tab PO 12/31/22 20:59 80 mg QPM OPAL Administration Clopidogrel Bisulfate 75 mg 12/01/22 09:00 12/01/22 09:29 Clopidogrel Bisulfate 75 Mg Tab PO 12/31/22 08:59 75 mg DAILY OPAL Administration Piperacillin Sod/Tazobactam 115 mls @ 28.75 mls/hr 12/01/22 08:00 12/02/22 08:19 Sod 3.375 gm/ Dextrose IV 12/08/22 07:59 28.8 mls/hr Q8H OPAL Administration Protocol Doxycycline Hyclate 100 mg/ 110 mls @ 50 mls/hr 12/01/22 09:30 12/02/22 10:37 Dextrose IV 12/08/22 09:29 Infused Q12H OPAL Infusion Metoprolol Succinate 25 mg 12/01/22 09:00 12/02/22 08:21 Metoprolol Succ 25mg Ext Rel Tab PO 12/31/22 08:59 Not Given QAM OPAL Multivitamins/Minerals 1 tab 12/01/22 09:00 12/02/22 08:20 Cerovite Adv Formula Tab PO 12/31/22 08:59 1 tab BID OPAL Administration Ondansetron HCl 4 mg 12/01/22 07:29 12/01/22 07:43 Ondansetron Inj 2 Mg/Ml 2 Ml Vial IV 12/31/22 07:28 4 mg Q6H PRN Administration Nausea And Vomiting Past Medical History Medical History CAD (coronary artery disease) CKD (chronic kidney disease), stage III Dyslipidemia Encounter for pre-operative examination HTN (hypertension) with goal to be determined Moderate aortic stenosis Past Family History Family History Sister Heart disease Brother Heart disease Past Surgical History Surgical History H/O lithotripsy History of cataract surgery S/P cardiac catheterization Social History Smoking Status: Former smoker tobacco type: cigars Hx Alcohol Use: Yes Alcohol type: hard liquor alcohol intake frequency: holidays/special occasions only Hx Substance Use: No substance use type: does not use Physical Exam Vital Signs Last Vital Signs Temp 36.9 C 12/02/22 10:25 Pulse 79 12/02/22 10:25 Resp 20 12/02/22 10:25 BP 99/63 L 12/02/22 10:25 Pulse Ox 95 12/02/22 10:25 O2 Del Method 12/02/22 08:48 Testing Laboratory Results 12/02/22 05:23 12/02/22 05:23 Urine Color Yellow 11/30/22 21:39 Urine Appearance Clear (Clear) 11/30/22 21:39 Urine pH 5.0 (4.5-7.5) 11/30/22 21:39 Ur Specific [place] 1.019 (1.000-1.030) 11/30/22 21:39 Urine Protein Negative (Negative) 11/30/22 21:39 Urine Glucose (UA) Negative (Negative) 11/30/22 21:39 Urine Ketones Negative (Negative) 11/30/22 21:39 Urine Nitrite Negative (Negative) 11/30/22 21:39 Ur Leukocyte Esterase 1+ (Negative) H 11/30/22 21:39 Urine WBC (Auto) 1-5 /hpf (0-5) 11/30/22 21:39 Urine RBC (Auto) 0-4 /hpf (0-4) 11/30/22 21:39 U Hyaline Cast (Auto) 1-5 /lpf (0-5) 11/30/22 21:39 U Epithel Cells (Auto) 5-10 /lpf (0-5) H 11/30/22 21:39 Urine Bacteria (Auto) Negative (Negative) 11/30/22 21:39 Blood Type A Positive 12/02/22 06:58 Antibody Screen NEGATIVE 12/02/22 06:58 12/01/22 01:10 Aerobic Blood Culture - Preliminary Blood No growth in Aerobic bottle after 24 hours. Anaerobic Blood Culture - Preliminary No growth in Anaerobic bottle after 24 hours. 12/01/22 01:08 Aerobic Blood Culture - Preliminary Blood No growth in Aerobic bottle after 24 hours. Anaerobic Blood Culture - Preliminary No growth in Anaerobic bottle after 24 hours. Electrocardiogram Date: 12/02/22 Test Reason : Blood Pressure : / mmHG Vent. Rate : 074 BPM Atrial Rate : 064 BPM P-R Int : 000 ms QRS Dur : 094 ms QT Int : 414 ms P-R-T Axes : 000 117 066 degrees QTc Int : 459 ms Poor data quality, interpretation may be adversely affected Probable Sinus rhythm Diffuse Nonspecific ST and T wave abnormality Abnormal ECG When compared with ECG of 30-NOV-2022 21:17, No significant change Confirmed by Everett Ambriz ([id number]) on 12/02/2022 8:25:58 AM Chest X-Ray Date: 11/30/22 XR chest 1V portable HISTORY: weakness COMPARISON: Chest 11/06/2022. FINDINGS: No focal lung consolidations. No evidence for pulmonary edema. No pneumothorax. No pleural effusions. The heart is normal in size. IMPRESSION: No acute process. Echocardiogram Date: 12/01/22 EF: 55-60 LV Function: normal RWMA: + hypokinetic Other Findings: + LVH (mild) and + diastolic dysfunction (grade 1) Valvular Disease: + (moderate) and + AI (mild)
[2022-12-02] MEDS ORDERED: FUROSEMIDE 40 MG/4 ML VIAL IV ONE (13:24)
--- NOTE | 2022-12-02 13:46 | GI REPORT ---
Patient Name: Jt Little Procedure Date: 12/02/2022 1:32 PM Date of : 1940 Admit Type: Inpatient Age: 82 Gender: Male Attending MD: Gabriel Florian MD, Procedure: Upper GI endoscopy Providers: Gabriel Florian MD Referring MD: Valdemar Phillips Md Indications: Acute post hemorrhagic anemia, Melena Medicines: See the Anesthesia note for documentation of the administered medications Complications: No immediate complications. Estimated Blood Loss: Estimated blood loss: none. Procedure: Pre-Anesthesia Assessment: - Prior to the procedure, a History and Physical was performed, and patient medications, allergies and sensitivities were reviewed. The patient's tolerance of previous anesthesia was reviewed. - The risks and benefits of the procedure and the sedation options and risks were discussed with the patient. All questions were answered and informed consent was obtained. - Patient identification and proposed procedure were verified prior to the procedure by the physician and the nurse. The procedure was verified in the pre-procedure area. - Pre-procedure physical examination revealed no contraindications to sedation. - After reviewing the risks and benefits, the patient was deemed in satisfactory condition to undergo the procedure. After obtaining informed consent, the endoscope was passed under direct vision. Throughout the procedure, the patient's blood pressure, pulse, and oxygen saturations were monitored continuously. The Endoscope was introduced through the mouth, and advanced to the third part of duodenum. The upper GI endoscopy was accomplished without difficulty. The patient tolerated the procedure well. Findings: The esophagus was normal. Multiple erosions with no stigmata of recent bleeding were found in the gastric antrum. The examined duodenum was normal. The cardia and gastric fundus were normal on retroflexion. Impression: - Normal esophagus. - Multiple gastric erosions in the antrum with no stigmata of recent bleeding. - Normal examined duodenum. - No specimens collected. Recommendation: - Return patient to hospital [facility] for ongoing care. - BID IV PPI. - Follow H/H and transfuse as need be. Gabriel Florian M.D. Gabriel Florian MD 12/02/2022 1:45:40 PM This report has been signed electronically. Note Initiated On: 12/02/2022 1:32 PM Number of Addenda: 0 I attest to the content of the Intraoperative Record and orders documented therein, exceptions below {[id number]}
[2022-12-02] MEDS ORDERED: PROPOFOL IV EMULSION 10 MG/ML 20 ML VIAL IV ONE (13:57)
[2022-12-02] MEDS ORDERED: LIDOCAINE 2% MPF LOCAL 5 ML VIAL INFIL ONE (13:57)
--- NOTE | 2022-12-02 14:34 | Anesthesiology Progress Note ---
Date of Service December 02, 2022 Anesthesia Post Procedure Vital Signs Vital Signs: Temp Pulse Pulse Resp BP BP Pulse Ox 12/02/22 14:12 76 20 97/54 L 98 12/02/22 13:58 80 18 90/69 L 98 12/02/22 13:43 70 12 95/52 L 98 12/02/22 12:59 37 C 93 H 18 120/70 96 12/02/22 12:30 36.7 C 76 20 103/63 95 12/02/22 11:23 36.9 C 78 18 97/60 L 93 12/02/22 10:25 36.9 C 79 20 99/63 L 95 12/02/22 09:55 36.8 C 78 20 95/60 L 94 12/02/22 09:54 36.8 C 80 18 101/62 95 12/02/22 09:41 36.8 C 81 20 101/62 93 12/02/22 09:40 36.7 C 83 20 100/61 92 12/02/22 08:48 36.7 C 95 H 18 104/67 93 12/02/22 03:45 36.8 C 100 H 20 93/58 L 98 12/01/22 22:55 69 12/01/22 22:38 36.7 C 79 20 116/72 92 12/01/22 19:00 36.8 C 77 20 100/65 93 12/01/22 19:48 12/01/22 15:30 36.8 C 72 19 96/50 L 93 O2 Del Method 12/02/22 14:12 Room Air 12/02/22 13:58 Room Air 12/02/22 13:43 Room Air 12/02/22 12:59 Room Air 12/02/22 12:30 12/02/22 11:23 Room Air 12/02/22 10:25 12/02/22 09:55 12/02/22 09:54 12/02/22 09:41 12/02/22 09:40 12/02/22 08:48 Room Air 12/02/22 03:45 Room Air 12/01/22 22:55 12/01/22 22:38 Room Air 12/01/22 19:00 Room Air 12/01/22 19:48 Room Air 12/01/22 15:30 Room Air Transfer of Care Handoff Completed per policy Notes Mental Status: alert / awake / arousable and participated in evaluation Patient Amnestic to Procedure: Yes Nausea / Vomiting: adequately controlled Pain: adequately controlled Airway Patency, RR, SpO2: stable & adequate BP & HR: stable & adequate Hydration State: stable & adequate Anesthetic Complications: no major complications apparent and Pt Satisfied with anesthetic care
--- NOTE | 2022-12-02 16:29 | Hospitalist Progress Note ---
Date of Service December 02, 2022 Assessment & Plan (1) Near syncope: Plan: Patient is an 82 yr male who presents with dizziness, not feeling well. Dizziness Orthostatic Hypotension Valvular Heart disease Symptomatic Anemia -ECHO reviewed Adjust antihypertensives as needed Received gentle IV fluids Monitor BP Will need evaluation by cardiology as outpatient Acute on Chronic anemia Occult GI bleed +FOBT S/P EGD:Normal esophagus. Multiple gastric erosions in the antrum with no stigmata of recent bleeding. Normal examined duodenum. S/P 2 units PRBCs Anemia work-up reviewed Aspirin, Plavix held Avoid anticoagulation Monitor CBC Continue IV PPI Appreciate GI input Currently acquired pneumonia Negative COVID Screen --CT Chest:Bilateral groundglass densities, new from prior exam, favored to represent pneumonia. Peribronchial thickening compatible with bronchitis/reactive airway disease. -- Blood, urine culture : No growth to date Continue Zosyn, doxycycline Chronic Systolic and diastolic heart failure EF 55-60%, grade 1 diastolic dysfunction Continue lisinopril, metoprolol Not on any diuretics Monitor Volume status Hypertension BP low Amlodipine discontinued Lisinopril held for now Continue metoprolol succinate with holding parameters Hyperlipidemia on statin CAD Continue statin, metoprolol, aspirin and Plavix. Prediabetes Diabetic diet HbA1c of 6.2 in September 2022. H/O Tobacco abuse. DVT Px: SCDs Re: GI Bleed Admission and Anticipated Discharge Date Admission Date: December 01, 2022 Subjective Patient is seen and examined at bedside Offers no complaints this morning Plan for EGD today Denies any shortness of breath, chest pain, dizziness Review of Systems Review of Systems: All systems reviewed & are unremarkable except as noted in Subjective Physical Exam Physical Exam: Physical Exam: Vitals signs as noted above General Appearance:Moderately built and nourished, Elderly, no apparent distress Head: normocephalic, Atraumatic Eyes: normal inspection, EOMI Neck: supple, Trachea midline Respiratory/Chest: Decreased breath sounds bases, No accessory muscle use Cardiovascular: S1, S2, + murmur Abdomen/GI:Soft, Non tender, Bowel sounds present Extremities/Musculoskeletal:normal inspection, 1+ LE edema Neurologic/Psych:AAOX3, grossly no focal neurological deficits Skin: normal color, warm Results & Data Results & Data ([facility]) Vital Signs (Past 12 Hours) Vital Signs Temp Pulse Pulse Resp BP BP Pulse Ox 12/02/22 07:00 73 12/02/22 07:00 12/02/22 16:10 36.8 C 70 20 93/61 L 94 12/02/22 15:55 36.8 C 69 20 101/65 95 12/02/22 14:51 98/45 L 12/02/22 14:41 36.7 C 79 17 95/55 L 92 12/02/22 14:12 76 20 97/54 L 98 12/02/22 13:58 80 18 90/69 L 98 12/02/22 13:43 70 12 95/52 L 98 12/02/22 12:59 37 C 93 H 18 120/70 96 12/02/22 12:30 36.7 C 76 20 103/63 95 12/02/22 11:23 36.9 C 78 18 97/60 L 93 12/02/22 10:25 36.9 C 79 20 99/63 L 95 12/02/22 09:55 36.8 C 78 20 95/60 L 94 12/02/22 09:54 36.8 C 80 18 101/62 95 12/02/22 09:41 36.8 C 81 20 101/62 93 12/02/22 09:40 36.7 C 83 20 100/61 92 12/02/22 08:48 36.7 C 95 H 18 104/67 93 O2 Del Method 12/02/22 07:00 12/02/22 07:00 Room Air 12/02/22 16:10 12/02/22 15:55 12/02/22 14:51 12/02/22 14:41 Room Air 12/02/22 14:12 Room Air 12/02/22 13:58 Room Air 12/02/22 13:43 Room Air 12/02/22 12:59 Room Air 12/02/22 12:30 12/02/22 11:23 Room Air 12/02/22 10:25 12/02/22 09:55 12/02/22 09:54 12/02/22 09:41 12/02/22 09:40 12/02/22 08:48 Room Air Laboratory Results Short CBC 12/02/22 Range/Units 05:23 WBC 3.88 L (4.8-10.8) K/ul Hgb 6.8 L* (14.0-18.0) g/dl Hct 21.2 L (40.1-51.0) % Plt Count 116 L (130-400) K/uL BMP 12/02/22 05:23 Sodium 137 Potassium 5.1 Chloride 109 H Carbon Dioxide 25 BUN 47 H Creatinine 1.19 Glucose 103 H Calcium 8.2 L
[2022-12-02 18:41] LABS: Hematocrit (blood only) 26.6 % (40.1-51.0)
[2022-12-02] MEDS: ATORVASTATIN 40 MG TAB PO SCH (20:55)
[2022-12-02] MEDS: PANTOprazole 40 MG in SYRINGE 0 ML IV SCH (20:58)
[2022-12-03 07:37] LABS: Hematocrit (blood only) 25.2 % (40.1-51.0); Hemoglobin 8.5 g/dl (14.0-18.0); Mean Corpuscular Hemoglobin 31.4 pg (25.0-34.0); Mean Corpuscular Hgb Conc 33.7 g/dL (32.0-36.0); Mean Platelet Volume 10.4 fL (9.4-12.4); Platelet Count 123 K/uL (130-400); RDW Coefficient of Variation 14.7 % (11.5-14.5); RDW Standard Deviation 50.3 fL (36.4-46.3); Red Blood Count 2.71 M/uL (4.63-6.08)
[2022-12-03] MEDS: PANTOprazole 40 MG in SYRINGE 0 ML IV SCH ×2 (07:50→20:49)
[2022-12-03] MEDS: CEROVITE ADV FORMULA TAB PO SCH ×2 (07:50→20:50)
[2022-12-03] MEDS: METOPROLOL SUCC 25MG EXT REL TAB PO SCH (07:50)
[2022-12-03] MEDS: PIPERACILLIN/TAZOBACTAM 3.375 GM in DEXTROSE 5% 100 ML IV SCH ×3 (07:52→23:45)
[2022-12-03] MEDS: DOXYCYCLINE HYCLATE 100 MG in DEXTROSE 5% 100 ML IV SCH ×2 (07:52→21:48)
[2022-12-03 08:01] LABS: BUN Creatinine Ratio 38.7 (10-20); Creatinine Clr Calc Pharmacy 57.8 ml/min; Est GFR (African American) 72.3 ml/min; Est GFR (Non-African American) 62.4 ml/min; Potassium 4.5 mmol/L (3.5-5.1)
--- NOTE | 2022-12-03 09:34 | Gastroenterology Progress Note ---
Date of Service December 03, 2022 Assessment & Plan (1) Pneumonia: Plan: 82 year old male with history of HLD, HTN, moderate aortic stenosis, chronic systolic CHF, EF of 45-48%, history of CAD on ASA and Plavix, valvular heart disease, chronic kidney disease stage III admitted with acute on chronic anemia, dark stools and + FOBT s/p EGD w/ gastric erosions. Trend HGB Monitor and document output Transfuse per primary service IV PPI BID x 48 hours then PO PPI BID x 3 months then once daily Diet as tolerated If HGB remains stable, no GI contraindication to resume AC Will sign off. Recall as needed. Thank you for allowing us to participate in the care of this patient. Please call with any acute changes, questions or concerns. Please see addendum below with additional recommendation from my supervising physician. (2) Anemia: (3) Fecal occult blood test positive: Admission and Anticipated Discharge Date Admission Date: December 01, 2022 Supervising Physician Co-Signing Physician Notes I saw and evaluated the patient. He underwent upper endoscopy yesterday by my partner who found gastric erosions as a cause of his heme positive stools and anemia. Recommendations Advance diet as tolerated Patient should be on a proton pump inhibitor 40 mg of Protonix once daily for 6 weeks then reduce to 20 mg daily thereafter Consider use of an iron supplement for 6 to 8 weeks. Follow-up with Dr. Florian as previously scheduled. Subjective Feeling well. Denies pain, nausea, vomiting. No report of further BM or dark stools. EGD: The esophagus was normal. Multiple erosions with no stigmata of recent bleeding were found in the gastric antrum. The examined duodenum was normal. The cardia and gastric fundus were normal on retroflexion. Review of Systems Review of Systems: All systems reviewed & are unremarkable except as noted in HPI & below Physical Exam Constitutional: WD/WN, vitals as above Respiratory: normal respiratory effort Cardiovascular: Rate/Rhythm: regular rate Gastrointestinal (Abdomen): normal bowel sounds, soft, nontender, no hepatosplenomegaly Skin: no rashes, warm and dry Results & Data ([facility]) Vital Signs (Past 12 Hours) Vital Signs Temp Pulse Resp BP Pulse Ox O2 Del Method 12/03/22 08:46 36.8 C 78 18 99/62 L 92 Room Air 12/03/22 03:46 36.5 C 73 18 95/58 L 94 Room Air 12/02/22 23:00 36.5 C 70 16 116/72 96 Room Air Laboratory Results 12/03/22 12/03/22 12/03/22 Range/Units 08:21 07:25 07:25 WBC 4.00 L (4.8-10.8) K/ul RBC 2.71 L (4.63-6.08) M/uL Hgb 8.5 L (14.0-18.0) g/dl Hct 25.2 L (40.1-51.0) % MCV 93.0 (80.0-100.0) fL MCH 31.4 (25.0-34.0) pg MCHC 33.7 (32.0-36.0) g/dL RDW Std Deviation 50.3 H (36.4-46.3) fL RDW Coeff of Kaiden 14.7 H (11.5-14.5) % Plt Count 123 L (130-400) K/uL MPV 10.4 (9.4-12.4) fL Sodium 137 (136-145) mmol/L Potassium 4.5 (3.5-5.1) mmol/L Chloride 108 H (98-107) mmol/L Carbon Dioxide 26 (21-32) mmol/L Anion Gap 3 (3-11) BUN 43 H (6-23) mg/dl Creatinine 1.11 (0.6-1.4) mg/dl Est Cr Clr Drug Dosing 57.8 ml/min Est GFR ( Amer) 72.3 ml/min Est GFR (Non-Af Amer) 62.4 ml/min BUN/Creatinine Ratio 38.7 H (10-20) Glucose 110 H (70-99(Fasting)) mg/dl POC Glucose 153 H (70-99) mg/dl Calcium 8.0 L (8.5-10.1) mg/dl Blood Type Antibody Screen Crossmatch 12/02/22 12/02/22 12/02/22 Range/Units 18:30 17:01 06:58 WBC (4.8-10.8) K/ul RBC (4.63-6.08) M/uL Hgb 9.0 L (14.0-18.0) g/dl Hct 26.6 L (40.1-51.0) % MCV (80.0-100.0) fL MCH (25.0-34.0) pg MCHC (32.0-36.0) g/dL RDW Std Deviation (36.4-46.3) fL RDW Coeff of Kaiden (11.5-14.5) % Plt Count (130-400) K/uL MPV (9.4-12.4) fL Sodium (136-145) mmol/L Potassium (3.5-5.1) mmol/L Chloride (98-107) mmol/L Carbon Dioxide (21-32) mmol/L Anion Gap (3-11) BUN (6-23) mg/dl Creatinine (0.6-1.4) mg/dl Est Cr Clr Drug Dosing ml/min Est GFR ( Amer) ml/min Est GFR (Non-Af Amer) ml/min BUN/Creatinine Ratio (10-20) Glucose (70-99(Fasting)) mg/dl POC Glucose 100 H (70-99) mg/dl Calcium (8.5-10.1) mg/dl Blood Type A Positive Antibody Screen NEGATIVE Crossmatch See Detail (1) Pneumonia Laterality: unspecified laterality Lung location: unspecified part of lung Pneumonia type: due to unspecified organism Qualified Code(s): J18.9 - Pneumonia, unspecified organism
--- NOTE | 2022-12-03 14:07 | Electrocardiogram Report ---
Test Reason : Blood Pressure : / mmHG Vent. Rate : 066 BPM Atrial Rate : 066 BPM P-R Int : 206 ms QRS Dur : 100 ms QT Int : 416 ms P-R-T Axes : 057 068 081 degrees QTc Int : 436 ms Normal sinus rhythm Normal ECG When compared with ECG of 02-DEC-2022 06:17, Consider arm lead reversal on prior tracing Confirmed by Buster Perry ([id number]) on 12/03/2022 2:07:21 PM Referred By: REFERRED SELF Confirmed By:Buster Perry
--- NOTE | 2022-12-03 18:17 | Hospitalist Progress Note ---
Date of Service December 03, 2022 Assessment & Plan (1) Near syncope: Plan: Patient is an 82 yr male who presents with dizziness, not feeling well. Dizziness Orthostatic Hypotension Valvular Heart disease Symptomatic Anemia Acute blood loss anemia likely causing dizziness, hypotension -ECHO reviewed Adjust antihypertensives as needed Received gentle IV fluids Monitor BP Will need evaluation by cardiology as outpatient Acute on Chronic anemia Occult GI bleed +FOBT Gastric erosions S/P EGD:Normal esophagus. Multiple gastric erosions in the antrum with no stigmata of recent bleeding. Normal examined duodenum. S/P 2 units PRBCs Anemia work-up reviewed Aspirin, Plavix held Avoid anticoagulation Monitor CBC Continue IV PPI Appreciate GI input Plan to continue IV PPI for 48 hours and then transition to p.o. PPI twice daily for 3 months and then once daily Monitor hemoglobin: 8.5 today If hemoglobin stable, no contraindication to resume aspirin, Plavix as per GI Currently acquired pneumonia Negative COVID Screen --CT Chest:Bilateral groundglass densities, new from prior exam, favored to represent pneumonia. Peribronchial thickening compatible with bronchitis/reactive airway disease. -- Blood, urine culture : No growth to date Continue Zosyn, doxycycline We will transition to p.o. antibiotics tomorrow Chronic Systolic and diastolic heart failure EF 55-60%, grade 1 diastolic dysfunction Continue lisinopril, metoprolol Not on any diuretics Monitor Volume status Hypertension BP low Amlodipine discontinued Lisinopril held for now Continue metoprolol succinate with holding parameters Hyperlipidemia on statin CAD Continue statin, metoprolol, aspirin and Plavix. Prediabetes Diabetic diet HbA1c of 6.2 in September 2022. H/O Tobacco abuse. DVT Px: SCDs Re: GI Bleed Admission and Anticipated Discharge Date Admission Date: December 01, 2022 Subjective Patient is seen and examined at bedside States feeling better today Offers no complaints Discussed with patient's family at bedside No bleeding issues today Denies any shortness of breath, chest pain, dizziness, nausea, abdominal pain Review of Systems Review of Systems: All systems reviewed & are unremarkable except as noted in Subjective Physical Exam Physical Exam: Physical Exam: Vitals signs as noted above General Appearance:Moderately built and nourished, Elderly, no apparent distress Head: normocephalic, Atraumatic Eyes: normal inspection, EOMI Neck: supple, Trachea midline Respiratory/Chest: Decreased breath sounds bases, No accessory muscle use Cardiovascular: S1, S2, + murmur Abdomen/GI:Soft, Non tender, Bowel sounds present Extremities/Musculoskeletal:normal inspection, 1+ LE edema Neurologic/Psych:AAOX3, grossly no focal neurological deficits Skin: normal color, warm Results & Data Results & Data ([facility]) Vital Signs (Past 12 Hours) Vital Signs Temp Pulse Resp BP Pulse Ox O2 Del Method 12/03/22 16:14 36.9 C 70 18 107/65 94 Room Air 12/03/22 11:28 36.8 C 71 18 105/59 L 94 Room Air 12/03/22 08:46 36.8 C 78 18 99/62 L 92 Room Air Laboratory Results Short CBC 12/02/22 12/03/22 Range/Units 18:30 07:25 WBC 4.00 L (4.8-10.8) K/ul Hgb 9.0 L 8.5 L (14.0-18.0) g/dl Hct 26.6 L 25.2 L (40.1-51.0) % Plt Count 123 L (130-400) K/uL BMP 12/03/22 07:25 Sodium 137 Potassium 4.5 Chloride 108 H Carbon Dioxide 26 BUN 43 H Creatinine 1.11 Glucose 110 H Calcium 8.0 L
[2022-12-03] MEDS: ATORVASTATIN 40 MG TAB PO SCH (20:50)
[2022-12-04 06:37] LABS: Hematocrit (blood only) 24.5 % (40.1-51.0); Hemoglobin 8.3 g/dl (14.0-18.0); Mean Corpuscular Hemoglobin 31.6 pg (25.0-34.0); Mean Corpuscular Hgb Conc 33.9 g/dL (32.0-36.0); Mean Corpuscular Volume 93.2 fL (80.0-100.0); Platelet Count 141 K/uL (130-400); RDW Coefficient of Variation 14.2 % (11.5-14.5); RDW Standard Deviation 47.8 fL (36.4-46.3); Red Blood Count 2.63 M/uL (4.63-6.08); White Blood Count 4.91 K/ul (4.8-10.8)
[2022-12-04] MEDS: PIPERACILLIN/TAZOBACTAM 3.375 GM in DEXTROSE 5% 100 ML IV SCH ×2 (07:40→16:24)
[2022-12-04] MEDS: PANTOprazole 40 MG in SYRINGE 0 ML IV SCH ×2 (08:53→20:55)
[2022-12-04] MEDS: CEROVITE ADV FORMULA TAB PO SCH ×2 (08:53→21:15)
[2022-12-04] MEDS: DOXYCYCLINE HYCLATE 100 MG in DEXTROSE 5% 100 ML IV SCH ×2 (09:01→21:20)
[2022-12-04] MEDS ORDERED: SODIUM CHLORIDE 0.9% 1000ML 500 ML IV ONE (10:30)
[2022-12-04] MEDS: METOPROLOL SUCC 25MG EXT REL TAB PO SCH (10:30)
[2022-12-04] MEDS: SODIUM CHLORIDE 0.9% 1000ML 1,000 ML IV SCH (11:15)
[2022-12-04 14:28] LABS: Hematocrit (blood only) 22.6 % (40.1-51.0); Hemoglobin 7.8 g/dl (14.0-18.0)
[2022-12-04] MEDS ORDERED: SODIUM CHLORIDE 0.9% 250 ML IV PRN (14:38)
--- NOTE | 2022-12-04 14:42 | Hospitalist Progress Note ---
Date of Service December 04, 2022 Assessment & Plan (1) Near syncope: Plan: per Dr. Phillips's notes with addendum: Patient is an 82 yr male who presents with dizziness, not feeling well. Dizziness Orthostatic Hypotension Valvular Heart disease Symptomatic Anemia Acute blood loss anemia likely causing dizziness, hypotension -ECHO reviewed: moderate aortic stenosis - hold antihypertensives for today - gentle IV NSS ordered will consult Regional Medical Director - complete bedrest for now Acute on Chronic anemia secondary to GI bleed +FOBT Gastric erosions S/P EGD:Normal esophagus. Multiple gastric erosions in the antrum with no stigmata of recent bleeding. Normal examined duodenum. S/P 2 units PRBCs Anemia work-up reviewed Aspirin, Plavix held Avoid anticoagulation Monitor CBC Continue IV PPI Appreciate GI input Plan to continue IV PPI for 48 hours and then transition to p.o. PPI twice daily for 3 months and then once daily Monitor hemoglobin: 8.5 today If hemoglobin stable, no contraindication to resume aspirin, Plavix as per GI 12/04 repeat Hg 7.8 today 1 unit pRBC ordered no signs of active GI Bleed continue Protonix IV BID hold Aspirin, Plavix today monitor closely Community acquired pneumonia Negative COVID Screen --CT Chest:Bilateral groundglass densities, new from prior exam, favored to represent pneumonia. Peribronchial thickening compatible with bronchitis/reactive airway disease. -- Blood, urine culture : No growth to date Continue Zosyn, doxycycline Chronic Systolic and diastolic heart failure EF 55-60%, grade 1 diastolic dysfunction Continue lisinopril, metoprolol -- on the dry side gentle IV fluids given Hypertension BP low Amlodipine discontinued Lisinopril held for now metoprolol succinate held this morning -- management per above Hyperlipidemia on statin CAD Continue statin, metoprolol HOLD aspirin and Plavix today Prediabetes Diabetic diet HbA1c of 6.2 in September 2022. H/O Tobacco abuse. DVT Px: SCDs Re: GI Bleed Admission and Anticipated Discharge Date Admission Date: December 01, 2022 Subjective ff up for GI bleed, etc seen resting in bed, sitting up in good spirits, oriented states he felt "off" when he stood up from chair felt tired no chest pain, dyspnea, palpitations, dizziness felt better after he was brought back to bed no abdominal pain, nausea/vomiting, melena/hematochezia no other symptoms Review of Systems Review of Systems: all noted and negative except for above Physical Exam Physical Exam: General- oriented x 3, not in distress, speaks in sentences with no effort or accessory muscle use Eyes- anicteric Neck- no JVD Lungs- clear BS bilaterally, no rales/wheezes Heart- normal rate, regular rhythm; no murmurs Abdomen- normal bowel sounds, nondistended, soft, nontender Extremities- no pretibial edema, no calf tenderness Neuro- alert, oriented x 3; no gross focal neurologic deficits Skin- warm & dry Results & Data Results & Data ([facility]) Vital Signs (Past 12 Hours) Vital Signs Temp Pulse Resp Pulse Ox O2 Del Method 12/04/22 08:00 78 12/04/22 07:19 37.0 C 20 93 Room Air all noted and reviewed including below
[2022-12-04] MEDS: ATORVASTATIN 40 MG TAB PO SCH (20:55)
[2022-12-05] MEDS: PIPERACILLIN/TAZOBACTAM 3.375 GM in DEXTROSE 5% 100 ML IV SCH ×4 (00:13→23:55)
[2022-12-05] MEDS: SODIUM CHLORIDE 0.9% 1000ML 1,000 ML IV SCH (03:25)
[2022-12-05 06:09] LABS: Hematocrit (blood only) 24.2 % (40.1-51.0); Hemoglobin 8.3 g/dl (14.0-18.0); Mean Corpuscular Hemoglobin 31.6 pg (25.0-34.0); Mean Corpuscular Hgb Conc 34.3 g/dL (32.0-36.0); Mean Platelet Volume 11.2 fL (9.4-12.4); Nucleated RBC # (auto) 0.02 K/uL (0-0); Nucleated RBC % (auto) 0.5 %; Platelet Count 135 K/uL (130-400); RDW Coefficient of Variation 14.1 % (11.5-14.5); RDW Standard Deviation 47.3 fL (36.4-46.3); Red Blood Count 2.63 M/uL (4.63-6.08); White Blood Count 4.06 K/ul (4.8-10.8)
[2022-12-05 06:30] LABS: BUN Creatinine Ratio 26.9 (10-20); Calcium 7.9 mg/dl (8.5-10.1); Creatinine Clr Calc Pharmacy 61.8 ml/min; Est GFR (African American) 78.2 ml/min; Est GFR (Non-African American) 67.5 ml/min; Potassium 4.2 mmol/L (3.5-5.1)
[2022-12-05] MEDS: PANTOprazole 40 MG in SYRINGE 0 ML IV SCH ×2 (09:52→20:34)
[2022-12-05] MEDS: CEROVITE ADV FORMULA TAB PO SCH ×2 (09:53→20:33)
[2022-12-05] MEDS: DOXYCYCLINE HYCLATE 100 MG CAP PO SCH ×2 (10:15→20:33)
--- NOTE | 2022-12-05 12:32 | Cardiology Consultation ---
Date of Consultation December 05, 2022 Assessment & Plan (1) Anemia: (2) Orthostatic hypotension: (3) CAD (coronary artery disease): (4) Moderate aortic stenosis: Plan Complex 82-year-old male with underlying chronic stable ischemic heart disease and moderate aortic stenosis admitted with symptomatic anemia and orthostatic hypotension. Anemia felt to be secondary to gastric erosions. Patient has responded to fluid resuscitation and blood replacement. Orthostasis improving Echocardiogram without severe aortic stenosis or new wall motion abnormality. No signs of acute coronary syndrome Recommendations: Discontinue lisinopril given aortic stenosis. Resume metoprolol as blood pressure allows Would continue to hold amlodipine and only restart if hypertension develops When stable from GI standpoint restart clopidogrel without aspirin to reduce GI bleeding concern History of Present Illness Reason for Consultation: Orthostatic hypotension, anemia Requesting Physician: Lane Rockwell MD Attending Physician: Lane Rockwell MD History of Present Illness Patient is an 82-year-old male with ongoing cardiac issues which include 1. Chronic stable ischemic heart disease with chronic total occlusion of the left circumflex coronary angiography April 2021 2. Moderate aortic stenosis 3. Dyslipidemia 4. Hypertension Patient is referred after admission on 12/01/2021 with dizziness, orthostatic hypotension and symptomatic anemia, blood loss, possible pneumonia. Patient is slowly responded to fluid resuscitation and blood replacement. Orthostasis present throughout admission gradually improving with hypertension medications held Echocardiogram does not suggest significant progression in aortic valve disease No acute myocardial ischemia by enzyme or EKG, overall LV systolic function unchanged Patient today without specific complaint. Orthostasis previously demonstrated improved. Still remains pale without overt bleeding Allergies Allergy/AdvReac Type Severity Reaction Status Date / Time No Known Allergies Allergy Unknown Unverified 11/30/22 22:46 Home Medications Medication Instructions Recorded Confirmed Type acetaminophen 500 mg tablet 1,000 mg PO Q6H PRN Pain 10/10/21 11/30/22 History (Tylenol Extra Strength) aspirin 81 mg tablet,delayed 81 mg PO QAM 10/10/21 11/30/22 History release clopidogrel 75 mg tablet 75 mg PO DAILY 09/17/22 11/30/22 History lisinopril 20 mg tablet 20 mg PO QAM 09/17/22 11/30/22 History metoprolol succinate 25 mg 25 mg PO QAM 09/17/22 11/30/22 History tablet,extended release 24 hr nitroglycerin 0.4 mg sublingual 0.4 mg sublingual UD PRN Chest Pain 09/17/22 11/30/22 History tablet ipratropium 0.5 mg-albuterol 3 mg 3 ml NEB Q6H PRN sob/wheezing #90 09/24/22 11/30/22 Rx (2.5 mg base)/3 mL nebulization mL soln atorvastatin 80 mg tablet 80 mg PO QPM 11/06/22 11/30/22 History benzonatate 100 mg capsule 100 mg PO TID PRN Cough 11/06/22 11/30/22 History vit C 250 mg-vit E 90 mg-zinc 40 1 tab PO BID 11/06/22 11/30/22 History mg-copper 1 [id number] capsule (PreserVision AREDS-2) amlodipine 2.5 mg tablet 2.5 mg PO DAILY 11/30/22 11/30/22 History hydrocortisone 2.5 % topical cream 1 applic MI BID PRN irritation 11/30/22 11/30/22 History with perineal applicator Patient History Medical History CAD (coronary artery disease) CKD (chronic kidney disease), stage III Dyslipidemia Encounter for pre-operative examination HTN (hypertension) with goal to be determined Moderate aortic stenosis Surgical History H/O lithotripsy History of cataract surgery S/P cardiac catheterization Family History Sister Heart disease Brother Heart disease Social History Smoking Status: Former smoker Tobacco Type: Cigars Second Hand Exposure: No; Hx Alcohol Use: Yes Alcohol type: hard liquor Hx Substance Use: No Preferred Language: Welsh Communication Ability: Effective Access Spec Required: No Beliefs That Will Affect Care: None marital status: Current Living Situation: Spouse Feels Safe at Home: Yes Assistive Devices: Cane Physical Exam Constitutional: WD/WN, vitals as above no acute distress Pale complected Eyes: PERRL, conjunctivae normal, anicteric sclerae ENMT: external ear and nose normal, oropharynx normal Neck: trachea midline, no thyromegaly Respiratory: normal respiratory effort, lungs clear to auscultation Cardiovascular: Rate/Rhythm: regular rate and regular rhythm Heart Sounds: + murmur (Grade 3/6 systolic) Vessels: no JVD Extremities: no edema Gastrointestinal (Abdomen): normal bowel sounds, soft, nontender, no hepatosplenomegaly Musculoskeletal: no cyanosis or clubbing, extremities motor strength 5/5 Results & Data ([facility]) Vital Signs (Past 12 Hours) Vital Signs Temp Pulse Pulse Resp BP Pulse Ox O2 Del Method 12/05/22 11:11 66 12/05/22 11:11 36.4 C L 76 16 109/64 93 Room Air 12/05/22 07:12 36.8 C 79 17 123/63 91 Room Air 12/05/22 03:47 36.9 C 82 18 112/63 93 Room Air Laboratory Results Laboratory Results - last 24 hr 12/02/22 12/04/22 12/05/22 06:58 14:19 05:26 WBC 4.06 L RBC 2.63 L Hgb 7.8 L 8.3 L Hct 22.6 L 24.2 L MCV 92.0 MCH 31.6 MCHC 34.3 RDW Std Deviation 47.3 H RDW Coeff of Kaiden 14.1 Plt Count 135 MPV 11.2 Absolute Nucleated RBC 0.02 H Nucleated RBC % (auto) 0.5 Sodium Potassium Chloride Carbon Dioxide Anion Gap BUN Creatinine Est Cr Clr Drug Dosing Est GFR ( Amer) Est GFR (Non-Af Amer) BUN/Creatinine Ratio Glucose Calcium Blood Type A Positive Antibody Screen NEGATIVE Crossmatch See Detail 12/05/22 05:26 WBC RBC Hgb Hct MCV MCH MCHC RDW Std Deviation RDW Coeff of Kaiden Plt Count MPV Absolute Nucleated RBC Nucleated RBC % (auto) Sodium 138 Potassium 4.2 Chloride 108 H Carbon Dioxide 26 Anion Gap 4 BUN 28 H Creatinine 1.04 Est Cr Clr Drug Dosing 61.8 Est GFR ( Amer) 78.2 Est GFR (Non-Af Amer) 67.5 BUN/Creatinine Ratio 26.9 H Glucose 109 H Calcium 7.9 L Blood Type Antibody Screen Crossmatch Diagnostic Findings Echocardiogram 12/01/2022 There is mild left ventricular hypertrophy Sigmoid septum There is moderate to large sized apical septal and anteroseptal wall motion abnormality with otherwise preserved wall function. EF 55-60% Calcified aortic valve with moderate aortic stenosis and mild aortic insufficiency peak aortic valve velocity 3.7 m/s, calculated aortic valve area 1.1 cm ECG Additional Comments: EKG 12/03/2022 Normal sinus rhythm with normal tracing at 66 bpm
[2022-12-05] MEDS: METOPROLOL SUCC 25MG EXT REL TAB PO SCH (13:49)
--- NOTE | 2022-12-05 14:00 | Hospitalist Progress Note ---
Date of Service December 05, 2022 Assessment & Plan (1) Near syncope: Plan: per Dr. Phillips's notes with addendum: Patient is an 82 yr male who presents with dizziness, not feeling well. Dizziness Orthostatic Hypotension Valvular Heart disease Symptomatic Anemia Acute blood loss anemia likely causing dizziness, hypotension -ECHO reviewed: moderate aortic stenosis - hold antihypertensives for today - gentle IV NSS ordered will consult Rn Orthopaedic - complete bedrest for now 12/05 Orthostatic hypotension resolving Given IV fluids, 1 unit of packed RBC Cardio service consulted, Dr. Wallis's recommendations noted DC lisinopril DC amlodipine Resume metoprolol once blood pressure is stable Acute on Chronic anemia secondary to GI bleed +FOBT Gastric erosions S/P EGD:Normal esophagus. Multiple gastric erosions in the antrum with no stigmata of recent bleeding. Normal examined duodenum. S/P 2 units PRBCs Anemia work-up reviewed Aspirin, Plavix held Avoid anticoagulation Monitor CBC Continue IV PPI Appreciate GI input Plan to continue IV PPI for 48 hours and then transition to p.o. PPI twice daily for 3 months and then once daily Monitor hemoglobin: 8.5 today If hemoglobin stable, no contraindication to resume aspirin, Plavix as per GI 12/04 repeat Hg 7.8 today 1 unit pRBC ordered no signs of active GI Bleed continue Protonix IV BID hold Aspirin, Plavix today monitor closely 12/05 Repeat hemoglobin 8.3 No signs of active GI bleeding Discussed with patient's , she is requesting for evaluation for inpatient colonoscopy Will discuss with GI service Community acquired pneumonia Negative COVID Screen --CT Chest:Bilateral groundglass densities, new from prior exam, favored to represent pneumonia. Peribronchial thickening compatible with bronchitis/reactive airway disease. -- Blood, urine culture : No growth to date Continue Zosyn, doxycycline to complete 7-day course -- Respiratory status stable -- We will order probiotics Chronic Systolic and diastolic heart failure EF 55-60%, grade 1 diastolic dysfunction Continue lisinopril, metoprolol -- on the dry side gentle IV fluids given -- Appears to be euvolemic today Hypertension BP low Amlodipine discontinued Lisinopril held for now metoprolol succinate held this morning -- management per above Hyperlipidemia on statin CAD Continue statin, metoprolol HOLD aspirin and Plavix today -- Per cardiology, resume Plavix only when stable Prediabetes Diabetic diet HbA1c of 6.2 in September 2022. H/O Tobacco abuse. DVT Px: SCDs Re: GI Bleed PT OT evaluation Lives with family at home Admission and Anticipated Discharge Date Admission Date: December 01, 2022 Subjective Follow-up for acute blood loss anemia, GI bleed, orthostatic hypotension, etc. Seen resting in bed, comfortable, sitting up, not in distress, in good spirits States he feels better today overall Strength is coming back, appetite is improving No recurrence of melena hematochezia, abdominal pain, nausea vomiting no chest pain, dyspnea, palpitations, dizziness No other symptoms Review of Systems Review of Systems: all noted and negative except for above Physical Exam Physical Exam: General- oriented x 3, not in distress, speaks in sentences with no effort or accessory muscle use Eyes- anicteric Neck- no JVD Lungs- clear breath sounds bilaterally, no crackles or wheezing Heart- normal rate, regular rhythm; positive grade 2 through 3 holosystolic murmur Abdomen- normal bowel sounds, nondistended, soft, no tenderness Extremities- no pretibial edema, no calf tenderness Neuro- alert, oriented x 3; no gross focal neurologic deficits Skin- warm & dry Results & Data Results & Data ([facility]) Vital Signs (Past 12 Hours) Vital Signs Temp Pulse Pulse Resp BP Pulse Ox O2 Del Method 12/05/22 11:11 66 12/05/22 11:11 36.4 C L 76 16 109/64 93 Room Air 12/05/22 07:12 36.8 C 79 17 123/63 91 Room Air 12/05/22 03:47 36.9 C 82 18 112/63 93 Room Air all noted and reviewed including below
[2022-12-05] MEDS: ATORVASTATIN 40 MG TAB PO SCH (20:33)
[2022-12-06] MEDS: DOXYCYCLINE HYCLATE 100 MG CAP PO SCH ×2 (08:21→21:08)
[2022-12-06] MEDS: METOPROLOL SUCC 25MG EXT REL TAB PO SCH (08:21)
[2022-12-06] MEDS: ADVANCED PROBIOTIC 1250 MG CAPSULE PO SCH (08:21)
[2022-12-06] MEDS: CEROVITE ADV FORMULA TAB PO SCH ×2 (08:21→21:08)
[2022-12-06] MEDS: PANTOprazole 40 MG in SYRINGE 0 ML IV SCH ×2 (08:22→21:08)
[2022-12-06] MEDS: PIPERACILLIN/TAZOBACTAM 3.375 GM in DEXTROSE 5% 100 ML IV SCH ×2 (08:28→15:25)
--- NOTE | 2022-12-06 09:43 | Gastroenterology Progress Note ---
Date of Service December 06, 2022 Assessment & Plan (1) Pneumonia: Plan: 82 year old male with history of HLD, HTN, moderate aortic stenosis, chronic systolic CHF, EF of 45-48%, history of CAD on ASA and Plavix, valvular heart disease, chronic kidney disease stage III admitted with acute on chronic anemia, dark stools and + FOBT s/p EGD w/ gastric erosions. GI was asked to evaluate for a colonoscopy, pt does not want to arrange colonoscopy. Called , Tiffanie on phone, who will discuss with Jt again. Trend HGB Iron Monitor and document output Transfuse per primary service PO PPI BID x 3 months then once daily Diet as tolerated If HGB remains stable, no GI contraindication to resume AC Will sign off. Recall as needed. Thank you for allowing us to participate in the care of this patient. Please call with any acute changes, questions or concerns. Please see addendum below with additional recommendation from my supervising physician. (2) Anemia: (3) Fecal occult blood test positive: Admission and Anticipated Discharge Date Admission Date: December 01, 2022 Supervising Physician Co-Signing Physician Notes Late entry: Patient was seen and examined on 12/06 with ALBARO Molina whose note reflects our findings and plan. Subjective GI asked to re-evaluate. Transfused x 1 unit over weekend for low H&H. No signs or symptoms of GI blood loss. GI was asked to arrange colonoscopy. Review of Systems Review of Systems: All systems reviewed & are unremarkable except as noted in HPI & below Physical Exam Constitutional: WD/WN, vitals as above Respiratory: normal respiratory effort, lungs clear to auscultation Cardiovascular: Rate/Rhythm: regular rate Gastrointestinal (Abdomen): normal bowel sounds, soft, nontender, no hepatosplenomegaly Skin: no rashes, warm and dry Results & Data ([facility]) Vital Signs (Past 12 Hours) Vital Signs Temp Pulse Pulse Resp BP Pulse Ox O2 Del Method 12/06/22 07:36 36.7 C 76 17 115/68 91 Room Air 12/06/22 03:37 36.8 C 75 18 117/71 92 Room Air 12/05/22 23:00 73 12/05/22 23:30 36.9 C 80 18 108/61 94 Room Air Laboratory Results 01/16/23 01/15/23 Range/Units 07:56 20:11 POC Glucose 121 H 133 H (70-99) mg/dl (1) Pneumonia Laterality: unspecified laterality Lung location: unspecified part of lung Pneumonia type: due to unspecified organism Qualified Code(s): J18.9 - Pneumonia, unspecified organism
[2022-12-06 10:07] LABS: Basophils # (auto) 0.03 K/uL (0-0.2); Basophils % (auto) 0.7 %; Eosinophils # (auto) 0.07 K/uL (0-0.50); Eosinophils % (auto) 1.6 %; Hematocrit (blood only) 26.1 % (40.1-51.0); Immature Granulocytes # (auto) 0.02 K/uL (0.00-0.02); Immature Granulocytes % (auto) 0.5 %; Lymphocytes # (auto) 0.62 K/uL (1.2-3.4); Lymphocytes % (auto) 14.1 %; Mean Corpuscular Hemoglobin 31.9 pg (25.0-34.0); Mean Corpuscular Hgb Conc 34.5 g/dL (32.0-36.0); Mean Corpuscular Volume 92.6 fL (80.0-100.0); Mean Platelet Volume 10.7 fL (9.4-12.4); Monocytes # (auto) 0.42 K/uL (0.24-0.82); Monocytes % (auto) 9.5 %; Neutrophils # (auto) 3.25 K/uL (1.4-6.5); Neutrophils % (auto) 73.6 %; Platelet Count 144 K/uL (130-400); RDW Coefficient of Variation 14.5 % (11.5-14.5); Red Blood Count 2.82 M/uL (4.63-6.08); White Blood Count 4.41 K/ul (4.8-10.8)
--- NOTE | 2022-12-06 10:09 | Cardiology Progress Note ---
Date of Service December 06, 2022 Assessment & Plan (1) Anemia: (2) Orthostatic hypotension: (3) CAD (coronary artery disease): (4) Moderate aortic stenosis: Plan Complex 82-year-old male with underlying chronic stable ischemic heart disease and moderate aortic stenosis admitted with symptomatic anemia and orthostatic hypotension. Anemia felt to be secondary to gastric erosions. Patient has responded to fluid resuscitation and blood replacement. Dizziness/orthostasis resolved BP improved. Labs pending from this morning at time of evaluation Echocardiogram without severe aortic stenosis or new wall motion abnormality. No signs of acute coronary syndrome Recommendations: Discontinue lisinopril given aortic stenosis. Metoprolol resumed and tolerating. Hold amlodipine and only resume if hypertension persistens When hbg stable from GI standpoint restart clopidogrel without aspirin to reduce GI bleeding concern Labs are pending. Case discussed with Dr. Albarran. Will follow. Admission and Anticipated Discharge Date Admission Date: December 01, 2022 Supervising Physician Co-Signing Physician Notes Patient seen and examined with Wanda Gordon PA-C. Agree with findings and assessment as above. Discontinue lisinopril. Restart Plavix once bleeding risk is acceptable from GI standpoint, will continue to hold aspirin Subjective Patient resting in bed comfortably. No recurrent dizziness, near syncope this morning when out of bed and ambulating in room. No chest pain. No SOB. No recurrent GI bleeding. No orthopnea, PND or edema. Labs pending this morning. Review of Systems Review of Systems: All systems reviewed & are unremarkable except as noted in HPI & below Physical Exam Constitutional: WD/WN, vitals as above well groomed, cooperative and comfortable; no acute distress Eyes: PERRL, conjunctivae normal, anicteric sclerae Neck: trachea midline, no thyromegaly normal visual inspection Respiratory: normal respiratory effort, lungs clear to auscultation normal respiratory effort; no respiratory distress Auscultation: lungs clear to auscultation bilaterally Cardiovascular: RRR, no murmur, no edema Rate/Rhythm: regular rate and regular rhythm Heart Sounds: + murmur (Grade 3/6 systolic) Vessels: no JVD Extremities: no edema Gastrointestinal (Abdomen): normal bowel sounds, soft, nontender, no hepatosplenomegaly Musculoskeletal: no cyanosis or clubbing, extremities motor strength 5/5 Spine: normal cervical ROM Skin: no rashes, warm and dry no jaundice Psychiatric: A+Ox3, euthymic affect Orientation: alert and oriented x 3 Results & Data ([facility]) Vital Signs (Past 12 Hours) Vital Signs Temp Pulse Pulse Resp BP Pulse Ox O2 Del Method 12/06/22 07:36 36.7 C 76 17 115/68 91 Room Air 12/06/22 03:37 36.8 C 75 18 117/71 92 Room Air 12/05/22 23:00 73 12/05/22 23:30 36.9 C 80 18 108/61 94 Room Air Laboratory Results Intake and Output 12/05/22 12/06/22 12/06/22 22:59 06:59 14:59 Intake Total 845 / 1716 415 / 1716 Output Total 1050 / 1625 575 / 1625 Balance -205 / -160 / 91 Intake: IV 115 / 686 115 / 686 Piperacillin/Tazobactam 3.375 115 / 345 115 / 345 gm In Dextrose 5% 100 ml @ 28. 75 mls/hr IV Q8H [facility] Rx#: [id number] Oral 730 / 1030 300 / 1030 Output: Urine 1050 / 1625 575 / 1625 Other: # Unmeasured Voids 1 1 Weight 86.5 kg Weight Measurement Method Built in [facility] Diagnostic Findings Telemetry reviewed - NSR in the s. No arrhythmias Medications Administered Current Inpatient Medications Acetaminophen (Acetaminophen 325 Mg Tab) 650 mg PO Q4H PRN PRN Reason: Pain or Fever Stop: 12/31/22 03:53 Albuterol (Albut/Ipratrop 3mg/0.5mg Neb 3 Ml Vial) 3 ml NEB Q6H PRN; Protocol PRN Reason: sob/wheezing Stop: 12/31/22 03:53 Amlodipine Besylate (Amlodipine Besylate 5 Mg Tab) 2.5 mg PO DAILY [facility] Stop: 12/31/22 08:59 Aspirin (Aspirin 81 Mg Ectab) 81 mg PO QAM [facility] Stop: 12/31/22 08:59 Last Admin: 12/01/22 09:29 Dose: 81 mg Atorvastatin Calcium (Atorvastatin 40 Mg Tab) 80 mg PO QPM [facility] Stop: 12/31/22 20:59 Last Admin: 12/05/22 20:33 Dose: 80 mg Benzonatate (Benzonatate 100 Mg Capsule) 100 mg PO TID PRN PRN Reason: Cough Stop: 12/31/22 03:53 Clopidogrel Bisulfate (Clopidogrel Bisulfate 75 Mg Tab) 75 mg PO DAILY [facility] Stop: 12/31/22 08:59 Last Admin: 12/01/22 09:29 Dose: 75 mg Doxycycline Hyclate (Doxycycline Hyclate 100 Mg Cap) 100 mg PO BID [facility] Stop: 12/12/22 08:59 Last Admin: 12/06/22 08:21 Dose: 100 mg Hydrocortisone (Hydrocortisone Hc 2.5% Crm 30gm Tube) 1 appln EXT BID PRN PRN Reason: irritation Stop: 12/31/22 03:53 Piperacillin Sod/Tazobactam (Sod 3.375 gm/ Dextrose) 115 mls @ 28.75 mls/hr IV Q8H [facility]; Protocol Stop: 12/08/22 07:59 Last Admin: 12/06/22 08:28 Dose: 28.8 mls/hr Pantoprazole Sodium 40 mg/ (Syringe) 10 mls @ 5 mls/min IV BID [facility] Stop: 01/01/23 20:59 Last Admin: 12/06/22 08:22 Dose: 5 mls/min Lactobacillus Acidophilus (Advanced Probiotic 1250 Mg Capsule) 2 cap PO DAILY [facility] Stop: 01/05/23 08:59 Last Admin: 12/06/22 08:21 Dose: 2 cap Metoprolol Succinate (Metoprolol Succ 25mg Ext Rel Tab) 25 mg PO QAM [facility] Stop: 12/31/22 08:59 Last Admin: 12/06/22 08:21 Dose: 25 mg Multivitamins/Minerals (Cerovite Adv Formula Tab) 1 tab PO BID [facility] Stop: 12/31/22 08:59 Last Admin: 12/06/22 08:21 Dose: 1 tab Nitroglycerin (Nitroglycerin Sl 0.4 Mg/Tab Tab) 0.4 mg SL UD PRN PRN Reason: Chest Pain Stop: 12/31/22 03:53 Ondansetron HCl (Ondansetron Inj 2 Mg/Ml 2 Ml Vial) 4 mg IV Q6H PRN PRN Reason: Nausea And Vomiting Stop: 12/31/22 07:28 Last Admin: 12/01/22 07:43 Dose: 4 mg Polyethylene Glycol (Polyethylene (Miralax) 17 Gm Pack) 17 gm PO DAILY PRN PRN Reason: Constipation Stop: 12/31/22 03:53
[2022-12-06 10:37] LABS: BUN Creatinine Ratio 19.8 (10-20); Calcium 8.4 mg/dl (8.5-10.1); Creatinine Clr Calc Pharmacy 60.6 ml/min; Est GFR (African American) 76.4 ml/min; Potassium 4.1 mmol/L (3.5-5.1)
--- NOTE | 2022-12-06 18:24 | Hospitalist Progress Note ---
Date of Service December 06, 2022 Assessment & Plan (1) Near syncope: Plan: per Dr. Phillips's notes with addendum: Patient is an 82 yr male who presents with dizziness, not feeling well. 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 Wallis's recommendations noted DC lisinopril DC amlodipine Resume metoprolol once blood pressure is stable Acute on Chronic anemia secondary to GI bleed +FOBT Gastric erosions S/P EGD:Normal esophagus. Multiple gastric erosions in the antrum with no stigmata of recent bleeding. Normal examined duodenum. S/P 2 units PRBCs Anemia work-up reviewed Aspirin, Plavix held Avoid anticoagulation Monitor CBC Continue IV PPI Appreciate GI input Plan to continue IV PPI for 48 hours and then transition to p.o. PPI twice daily for 3 months and then once daily Monitor hemoglobin: 8.5 today If hemoglobin stable, no contraindication to resume aspirin, Plavix as per GI 12/04 repeat Hg 7.8 today 1 unit pRBC ordered no signs of active GI Bleed continue Protonix IV BID hold Aspirin, Plavix today monitor closely 12/05 Repeat hemoglobin 8.3 No signs of active GI bleeding Discussed with patient's , she is requesting for evaluation for inpatient colonoscopy Will discuss with GI service Community acquired pneumonia Negative COVID Screen --CT Chest:Bilateral groundglass densities, new from prior exam, favored to represent pneumonia. Peribronchial thickening compatible with bronchitis/reactive airway disease. -- Blood, urine culture : No growth to date Continue Zosyn, doxycycline to complete 7-day course -- Respiratory status stable -- We will order probiotics Chronic Systolic and diastolic heart failure EF 55-60%, grade 1 diastolic dysfunction Continue lisinopril, metoprolol -- on the dry side gentle IV fluids given -- Appears to be euvolemic today Hypertension BP low Amlodipine discontinued Lisinopril held for now metoprolol succinate held this morning -- management per above Hyperlipidemia on statin CAD Continue statin, metoprolol HOLD aspirin and Plavix today -- Per cardiology, resume Plavix only when stable Prediabetes Diabetic diet HbA1c of 6.2 in September 2022. H/O Tobacco abuse. DVT Px: SCDs Re: GI Bleed PT OT evaluation Lives with family at home Admission and Anticipated Discharge Date Admission Date: December 01, 2022 Results & Data Results & Data ([facility]) Vital Signs (Past 12 Hours) Vital Signs Temp Pulse Pulse Resp BP BP Pulse Ox 12/06/22 15:19 36.7 C 75 16 126/72 92 12/06/22 11:10 36.6 C 17 94 12/06/22 07:36 36.7 C 76 17 115/68 91 O2 Del Method 12/06/22 15:19 Room Air 12/06/22 11:10 Room Air 12/06/22 07:36 Room Air
[2022-12-06] MEDS: LAVAGE SOLUTION 4000ML PO SCH (21:06)
[2022-12-06] MEDS: ATORVASTATIN 40 MG TAB PO SCH (21:07)
[2022-12-06] MEDS ORDERED: PROMETHAZINE HCL 6.25 MG in SODIUM CHLORIDE 0.9% 50 ML IV STA (22:59)
[2022-12-06] MEDS ORDERED: PROMETHAZINE HCL 6.25 MG in SODIUM CHLORIDE 0.9% 50 ML IV PRN (22:59)
[2022-12-07] MEDS: PIPERACILLIN/TAZOBACTAM 3.375 GM in DEXTROSE 5% 100 ML IV SCH ×3 (00:14→17:12)
[2022-12-07 05:09] LABS: Basophils # (auto) 0.03 K/uL (0-0.2); Basophils % (auto) 0.7 %; Eosinophils # (auto) 0.05 K/uL (0-0.50); Eosinophils % (auto) 1.2 %; Hematocrit (blood only) 24.4 % (40.1-51.0); Hemoglobin 8.3 g/dl (14.0-18.0); Immature Granulocytes # (auto) 0.01 K/uL (0.00-0.02); Immature Granulocytes % (auto) 0.2 %; Lymphocytes % (auto) 18.8 %; Mean Corpuscular Volume 94.2 fL (80.0-100.0); Mean Platelet Volume 10.9 fL (9.4-12.4); Monocytes # (auto) 0.33 K/uL (0.24-0.82); Monocytes % (auto) 7.7 %; Neutrophils # (auto) 3.04 K/uL (1.4-6.5); Neutrophils % (auto) 71.4 %; Platelet Count 151 K/uL (130-400); RDW Coefficient of Variation 14.5 % (11.5-14.5); RDW Standard Deviation 48.3 fL (36.4-46.3); Red Blood Count 2.59 M/uL (4.63-6.08); White Blood Count 4.26 K/ul (4.8-10.8)
[2022-12-07] MEDS: LAVAGE SOLUTION 4000ML PO SCH (06:36)
--- NOTE | 2022-12-07 07:24 | Communication Note ---
Date of Service: December 07, 2022 Notified by RN of patient inability to tolerate colonoscopy prep. Dry heaving. Patient called in and requested for colonoscopy to be canceled.
[2022-12-07] MEDS: DOXYCYCLINE HYCLATE 100 MG CAP PO SCH ×2 (08:37→20:42)
[2022-12-07] MEDS: CEROVITE ADV FORMULA TAB PO SCH ×2 (08:37→20:41)
[2022-12-07] MEDS: METOPROLOL SUCC 25MG EXT REL TAB PO SCH (08:37)
[2022-12-07] MEDS: ADVANCED PROBIOTIC 1250 MG CAPSULE PO SCH (08:37)
[2022-12-07] MEDS: PANTOprazole 40 MG in SYRINGE 0 ML IV SCH (08:38)
--- NOTE | 2022-12-07 09:11 | Communication Note ---
Date of Service: December 07, 2022 Patient was to have colonoscopy today but was not able to tolerate prep. He does not want to attempt again. Would resume regular diet as tolerated. Please refer to previous notes with additional recommendations. Will sign off.
--- NOTE | 2022-12-07 11:34 | Cardiology Progress Note ---
Date of Service December 07, 2022 Assessment & Plan (1) Anemia: (2) Orthostatic hypotension: (3) CAD (coronary artery disease): (4) Moderate aortic stenosis: Plan Complex 82-year-old male with underlying chronic stable ischemic heart disease and moderate aortic stenosis admitted with symptomatic anemia and orthostatic hypotension. Anemia felt to be secondary to gastric erosions. Patient has responded to fluid resuscitation and blood replacement. Dizziness/orthostasis resolved BP improved. Hbg has remained relatively stable ranging 8.5-9.0. Planned colonoscopy today cancelled due to failure to tolerate prep. Patient declines to reattempt prep. diet advanced. No recurrent bleeding. GI ok with resuming antiplatelet therapy. Will resume Plavix today at 75 mg. Will not be resuming ASA. Echocardiogram without severe aortic stenosis or new wall motion abnormality. No signs of acute coronary syndrome BP controlled and will remain off lisinopril given aortic stenosis. Metoprolol resumed and tolerating. Hold amlodipine and only resume if hypertension persistens Stable cardiac symptoms. Will sign off. Please notify consumer sales representative nanoelectronics engineer with additional questions or concerns. Case discussed with Dr. Albarran. Admission and Anticipated Discharge Date Admission Date: December 01, 2022 Supervising Physician Co-Signing Physician Notes Patient seen and examined with Wanda Gordon PA-C. Agree with findings and assessment as above. Will sign off, please call with questions or concerns. Subjective Patient resting in bed, eating breakfast. was to have colonoscopy today but did not tolerate prep and procedure cancelled. Patient does not wish to attempt again. SOB improved. Cough improved. No recurrent evidence of GI bleeding. hbg has been relatively stable. No dizziness or lightheadedness. BP improved. Review of Systems Review of Systems: All systems reviewed & are unremarkable except as noted in HPI & below Physical Exam Constitutional: WD/WN, vitals as above well groomed, cooperative and comfortable; no acute distress Eyes: PERRL, conjunctivae normal, anicteric sclerae Neck: trachea midline, no thyromegaly normal visual inspection Respiratory: normal respiratory effort, lungs clear to auscultation normal respiratory effort; no respiratory distress Auscultation: lungs clear to auscultation bilaterally Cardiovascular: RRR, no murmur, no edema Rate/Rhythm: regular rate and regular rhythm Heart Sounds: + murmur (Grade 3/6 systolic) Vessels: no JVD Extremities: no edema Gastrointestinal (Abdomen): normal bowel sounds, soft, nontender, no hepatosplenomegaly Musculoskeletal: no cyanosis or clubbing, extremities motor strength 5/5 Spine: normal cervical ROM Skin: no rashes, warm and dry no jaundice Psychiatric: A+Ox3, euthymic affect Orientation: alert and oriented x 3 Results & Data ([facility]) Vital Signs (Past 12 Hours) Vital Signs Temp Pulse Resp BP Pulse Ox O2 Del Method 12/07/22 07:17 36.7 C 17 93 Room Air 12/07/22 03:22 36.6 C 68 18 116/70 93 Room Air Laboratory Results CBC 12/07/22 Range/Units 03:26 WBC 4.26 L (4.8-10.8) K/ul RBC 2.59 L (4.63-6.08) M/uL Hgb 8.3 L (14.0-18.0) g/dl Hct 24.4 L (40.1-51.0) % Plt Count 151 (130-400) K/uL Neut # (Auto) 3.04 (1.4-6.5) K/uL Lymph # (Auto) 0.80 L (1.2-3.4) K/uL [place] # (Auto) 0.33 (0.24-0.82) K/uL Eos # (Auto) 0.05 (0-0.50) K/uL Baso # (Auto) 0.03 (0-0.2) K/uL Intake and Output 12/06/22 12/07/22 12/07/22 22:59 06:59 14:59 Intake Total 865 / 2211.13 361.13 / 2211.13 0 / 0 Output Total 625 / 1525 300 / 1525 Balance 240 / 686.13 61.13 / 686.13 0 / 0 Intake: IV 115 / 391.13 161.13 / 391.13 0 / 0 Piperacillin/Tazobactam 3.375 115 / 340.88 110.88 / 340.88 0 / 0 gm In Dextrose 5% 100 ml @ 28. 75 mls/hr IV Q8H [facility] Rx#: [id number] Promethazine HCl 6.25 mg In 50.25 / 50.25 Sodium Chloride 0.9% 50 ml @ 201 mls/hr IV NOW [facility] Rx#: [id number] Oral 750 / 1820 200 / 1820 Output: Urine 625 / 1525 300 / 1525 Other: # Unmeasured Voids 2 Weight 86.7 kg Weight Measurement Method Built in [facility] Diagnostic Findings Telemetry reviewed: NSR in the 60-70's. no arrhythmias
--- NOTE | 2022-12-07 18:00 | Hospitalist Progress Note ---
Date of Service December 07, 2022 Assessment & Plan (1) Near syncope: Plan: Dizziness Orthostatic Hypotension Acute blood loss anemia likely causing dizziness, hypotension -ECHO reviewed: moderate aortic stenosis - BP meds held given pRBCs 12/07 Orthostatic hypotension resolved Given IV fluids, 3 units of packed RBC Cardio service consulted,recommendations noted DC lisinopril DC amlodipine Resume usual metoprolol stop ASA, resume Plavix only PT/OT eval: recommend return home Acute on Chronic anemia secondary to GI bleed +FOBT S/P EGD:Normal esophagus. Multiple gastric erosions in the antrum with no stigmata of recent bleeding. Normal examined duodenum. S/P 3 units PRBCs Anemia work-up reviewed normal Iron, B12 Hg stable at ~8 since transfusions no recurrence of GI bleed transition to PO Protonix- PO PPI BID x 3 months then once daily resume Plavix patient did not tolerate prep for colonoscopy outpatient GI ff up Community acquired pneumonia - Negative COVID Screen --CT Chest:Bilateral groundglass densities, new from prior exam, favored to represent pneumonia. Peribronchial thickening compatible with bronchitis/reactive airway disease. -- Blood, urine culture : No growth to date Continue Zosyn, doxycycline to complete 7-day course (last day today) -- Respiratory status stable -- probiotics x 2 weeks Chronic Systolic and diastolic heart failure EF 55-60%, grade 1 diastolic dysfunction -- Appears to be euvolemic today Hypertension -- management per above Hyperlipidemia on statin CAD Continue statin, metoprolol -- Per cardiology, resume Plavix only to avoid GI bleed Prediabetes Diabetic diet HbA1c of 6.2 in September 2022. H/O Tobacco abuse. DVT Px: SCDs Re: GI Bleed PT/OT eval: recommend return home Lives with family at home possible d/c in 1-2 days Admission and Anticipated Discharge Date Admission Date: December 01, 2022 Subjective ff up for weakness, orthostatic hypotension, anemia sec to GI bleed, etc seen resting in bed, comfortable did not tolerate prep for colonoscopy, was dry heaving colonoscopy cancelled states he feels fine this morning no nausea, abdominal pain no note of melena, hematochezia no chest pain, dyspnea, palpitations, dizziness no other symptoms Review of Systems Review of Systems: all noted and negative except for above Physical Exam Physical Exam: General- oriented x 3, not in distress, speaks in sentences with no effort or accessory muscle use Eyes- anicteric Neck- no JVD Lungs- clear BS BL Heart- normal rate, regular rhythm; gr 3/6 murmur Abdomen- normal bowel sounds, nondistended, soft, nontender Extremities- no pretibial edema, no calf tenderness Neuro- alert, oriented x 3; no gross focal neurologic deficits Skin- warm & dry Results & Data Results & Data ([facility]) Vital Signs (Past 12 Hours) Vital Signs Temp Pulse Pulse Resp BP Pulse Ox O2 Del Method 12/07/22 15:29 36.7 C 72 18 112/68 95 Room Air 12/07/22 13:17 63 12/07/22 07:17 36.7 C 17 93 Room Air
[2022-12-07] MEDS: POLYETHYLENE (MIRALAX) 17 GM PACK PO PRN (19:42)
[2022-12-07] MEDS: PANTOprazole 40 MG TAB PO SCH (20:40)
[2022-12-07] MEDS: ATORVASTATIN 40 MG TAB PO SCH (20:41)
[2022-12-08] MEDS: PIPERACILLIN/TAZOBACTAM 3.375 GM in DEXTROSE 5% 100 ML IV SCH (00:19)
[2022-12-08 06:13] LABS: Basophils # (auto) 0.03 K/uL (0-0.2); Basophils % (auto) 0.7 %; Eosinophils # (auto) 0.07 K/uL (0-0.50); Eosinophils % (auto) 1.7 %; Hemoglobin 8.7 g/dl (14.0-18.0); Immature Granulocytes # (auto) 0.01 K/uL (0.00-0.02); Immature Granulocytes % (auto) 0.2 %; Lymphocytes # (auto) 0.79 K/uL (1.2-3.4); Lymphocytes % (auto) 18.9 %; Mean Corpuscular Hemoglobin 31.5 pg (25.0-34.0); Mean Corpuscular Hgb Conc 33.5 g/dL (32.0-36.0); Mean Corpuscular Volume 94.2 fL (80.0-100.0); Mean Platelet Volume 10.5 fL (9.4-12.4); Monocytes # (auto) 0.43 K/uL (0.24-0.82); Monocytes % (auto) 10.3 %; Neutrophils # (auto) 2.86 K/uL (1.4-6.5); Neutrophils % (auto) 68.2 %; Platelet Count 173 K/uL (130-400); RDW Coefficient of Variation 14.6 % (11.5-14.5); RDW Standard Deviation 48.2 fL (36.4-46.3); Red Blood Count 2.76 M/uL (4.63-6.08); White Blood Count 4.19 K/ul (4.8-10.8)
[2022-12-08] MEDS: DOXYCYCLINE HYCLATE 100 MG CAP PO SCH (09:13)
[2022-12-08] MEDS: METOPROLOL SUCC 25MG EXT REL TAB PO SCH (09:14)
[2022-12-08] MEDS: ADVANCED PROBIOTIC 1250 MG CAPSULE PO SCH (09:14)
[2022-12-08] MEDS: PANTOprazole 40 MG TAB PO SCH (09:14)
[2022-12-08] MEDS: CEROVITE ADV FORMULA TAB PO SCH (09:14)
[2022-12-08] MEDS: CLOPIDOGREL BISULFATE 75 MG TAB PO SCH (09:15)
[2022-12-08] MEDS ORDERED: MAGNESIUM HYDROXIDE SUSP 30 ML UDC PO ONE (10:03)
[2022-12-08] MEDS: POLYETHYLENE (MIRALAX) 17 GM PACK PO PRN (11:21)
--- NOTE | 2022-12-08 17:38 | Discharge Summary ---
Date of Service December 08, 2022 Admission HPI Per Admitting Provider This is an 82-year-old male with past medical history significant for hyperlipidemia, prediabetes, hypertension, moderate aortic stenosis, chronic systolic CHF, EF of 45-48%, history of CAD, valvular heart disease, chronic kidney disease stage III, , past tobacco abuse, presents with dizziness and not feeling well. It looks like the patient has recurrent admissions for pneumonia and last, he was recently here in October, was observed for near syncope. CAT scan of the abdomen showed enterocolitis on last admission. Lives at home with his , ambulates with a cane. He says today he was not feeling well and feeling dizzy. Denies any cough, denies any fever, denies any runny nose, no sore throat. Somewhat hard of hearing. No blurred vision or double visions. No chest pain, no shortness of breath, no nausea, no abdominal pain. Normal bowel and bladder movements. Denies any burning micturition or hematuria. Currently, resting comfortably and hemodynamically stable. Admission Exam Per Admitting Provider GENERAL: The patient is old and frail, not in acute distress. VITAL SIGNS: Temperature 36.4, pulse 74, respiratory rate 22, blood pressure 96/50, oxygen 96% on room air. HEENT: Pupils equal, round and reactive to light. Oral mucosa moist. NECK: No JVD, no neck masses. CARDIOVASCULAR: S1 and S2 heard. Regular rate and rhythm. No murmur, no gallop. RESPIRATORY SYSTEM: Normal AP diameter. No accessory muscle use. No wheezing, no crackles. ABDOMEN: Soft, bowel sounds present, nontender, no distention. CENTRAL NERVOUS SYSTEM: Alert and oriented. Speech is clear. No facial droop. Obeys simple commands. Insight is okay. Moves extremities. EXTREMITIES: Trace pedal edema, no erythema seen. Principal Diagnosis Near syncope due to orthostatic hypotension Acute blood loss anemia Multiple gastric erosions Community-acquired pneumonia Discharge Exam Constitutional: WD/WN, vitals as above, NAD, sitting up in bed, pleasant, conversing easily Respiratory: normal respiratory effort, lungs clear to auscultation, no wheeze, rales, rhonchi. Normal insp/exp effort, no accessory muscle use Cardiovascular: RRR, no murmur, no edema Vessels: no JVD or carotid bruit Chest: normal inspection of chest Abdomen: normal bowel sounds, soft, nontender, no hepatosplenomegaly Musculoskeletal: no cyanosis or clubbing, extremities motor strength 5/5 Skin: no rashes, warm and dry normal turgor Neurologic: PERRL, EOMI, accommodation nl, no face palsy, no dysarthria CN's II- XI intact bilaterally and moves all extremities Psychiatric: A+Ox3, euthymic affect Lymphatic: no cervical or axillary lymphadenopathy : deferred Discharge Data Allergies Allergy/AdvReac Type Severity Reaction Status Date / Time No Known Allergies Allergy Unknown Unverified 11/30/22 22:46 Consultations 12/01/22 00:34 ED Decision to Admit Stat 12/02/22 07:32 Consult Gastroenterology Routine 12/05/22 08:07 Consult Cardiology Routine Procedures Performed Operation Date: 12/02/22 16:45 Actual Procedures p Esophagogastroduodenoscopy - Gabriel Florian MD Operation Date: 12/07/22 17:15 <No data on this case meets the specified criteria> Ordered Studies 11/30/22 21:39 CT Abd and Pelvis [CT abd pelvis IV con only] Urgent 12/01/22 02:25 CT chest diagnostic wo con Urgent Hospital Course (1) Near syncope: Patient is a 82-year-old male with past medical history of hypertension, hyperlipidemia, prediabetes, chronic systolic CHF who presented to the ED with dizziness. He was managed for following condition during the hospitalization; Dizziness secondary to orthostatic hypotension Acute blood loss anemia due to gastric erosions Patient was found to be orthostatic on admission. He was given 3 units of packed RBC. GI was consulted; endoscopy showed multiple gastric erosions in the antrum. Cardiology was consulted who recommended to discontinue lisinopril, amlodipine and aspirin. Patient did not tolerate colonoscopy preparation. Hemoglobin remained stable in the range of 8.7-9. Community-acquired pneumonia CT chest showed bilateral groundglass densities which were new from prior exam. He was given Zosyn and doxycycline during the hospitalization. Constipation Patient reported constipation with no bowel movement for 7 days. On the day of the discharge, patient had bowel movement. He was discharged on milk of magnesia and MiraLAX. Patient was given discharge instructions. He was recommended to follow-up with his primary care doctor. Total Time Total Time Spent Total Time Spent (In Minutes): 40 Total Time Includes: Examination of the Patient, Discharge Planning, Medication Reconciliation, Communication With Other Providers and Other Discharge Plan Discharge Items Patient Disposition: Home - Self-Care Reason For Visit: ILLNESS Discharge Diagnosis: Orthostatic hypotension Acute blood loss anemia due to upper GI bleed Gastric erosions Community-acquired pneumonia Condition on Discharge: Good Activity: Resume your previous activity Non-emergency contact: Primary Care Provider Call non-emergency contact if: you have any medication questions and your sy mptoms worsen Follow-up/Referrals: Sai Mason MD [Primary Care Provider] - (Date & Time 12/15/2022 11:20 AM Provider Sai Mason MD Department [facility] ) Diet: Regular Addtl Attending Provider Instructions: You were admitted to the hospital due to dizziness. You were found to have multiple gastric erosions. You received 3 units of blood during the hospitalization. The following medication changes are recommended: Stop aspirin. Continue on Plavix. Stop amlodipine and lisinopril as your blood pressure was found to be on lower side during the hospitalization. Please continue to take metoprolol. You were prescribed Protonix 40 mg twice daily to be taken for 90 days. After the completion of 90 days, start Protonix to be taken once a day. For the constipation, you are prescribed milk of magnesia to be taken twice daily till you have regular bowel movement. You are also prescribed MiraLAX to be taken as needed. A follow-up with your primary care doctor will be set up for sometime next week. Pending Studies at Discharge: No Stand-Alone Forms: My [facility] [employer], Smoking Cessation Medications and DC Order Prescriptions: New polyethylene glycol 3350 [Miralax] 17 gram Powder In Packet 17 g PO DAILY PRN (Reason: constipation) Qty: 30 0RF pantoprazole 40 mg Tablet,Delayed Release (Dr/Ec) 40 mg PO BID 90 Days Qty: 180 0RF magnesium hydroxide [Milk of Magnesia] 400 mg/5 mL suspension 5 ml PO BID Qty: 355 0RF Continued clopidogrel 75 mg tablet 75 mg PO DAILY nitroglycerin 0.4 mg tablet, sublingual 0.4 mg sublingual UD PRN (Reason: Chest Pain) Rx Instructions: Take one nitro every 5 minutes up to three doses as needed for chest pain metoprolol succinate 25 mg tablet extended release 24 hr 25 mg PO QAM atorvastatin 80 mg tablet 80 mg PO QPM benzonatate 100 mg capsule 100 mg PO TID PRN (Reason: Cough) PreserVision AREDS-2 250-90-40-1 mg Capsule 1 tab PO BID hydrocortisone 2.5 % cream with perineal applicator 1 applic WA BID PRN (Reason: irritation) acetaminophen [Tylenol Extra Strength] 500 mg Tablet 1,000 mg PO Q6H PRN (Reason: Pain) ipratropium-albuterol 0.5 mg-3 mg(2.5 mg base)/3 mL Solution For Nebulization 3 ml NEB Q6H PRN (Reason: sob/wheezing) Qty: 90 0RF Discontinued lisinopril 20 mg tablet 20 mg PO QAM amlodipine 2.5 mg tablet 2.5 mg PO DAILY aspirin 81 mg tablet,delayed release (DR/EC) 81 mg PO QAM Discharge Orders: Discharge Order (Routine); Ordered 12/08/22 Ordered By: Kendell Faye Admission Data Admit Date/Time: 12/01/22 02:14 Attending Provider: Kendell Faye Admit Provider: Christiano Sky Primary Care Provider: Sai Mason Other Providers: Christiano Sky ; Yojana Aguilar ; Brenden Gar ; Jannette Adrian ; Lisa Colon ; Lidia Cagle ; Samantha Alvarenga ; Alberto Bloom ; Nasim Rosario ; Guerrero Waddell ; Diane Delgadillo ; Gabriel Florian ; Maryam Rodriguez ; Kristine Duran ; Sandra Coleman ; Maura Castaneda ; Jaylin Maria ; Jarrett Avila ; Capo Farah ; Cara Carrillo ; Tomasz Nguyễn Jr ; Thong Wallis Other Interventions: Discharge Summary Assessment (RN) Last Done: 12/08/22 14:13
== END 2022-12-08 14:41 | disposition home or self-care (01) | DRG 377 ==
LOC: ED 21:10 → 4W 12-01 02:14 → SUATTDRO 12-01 02:14 → 4W 12-01 03:27

== ENCOUNTER 2024-09-25 11:35 | Observation (INO) ==
--- NOTE | 2024-09-25 11:54 | Emergency Department Note ---
Impression & Plan Chest pain, Arm pain, left ED Provider Note HISTORY OF PRESENT ILLNESS: Patient is an 83-year-old male presenting with left arm and left shoulder pain. Patient reports that he was driving when he suddenly had pain in his left arm that radiated into his left shoulder and into his left posterior shoulder. He denied any anterior chest pain. He states the pain lasted for about 5-10 and he had to pull to the side of the road. He denies any shortness of breath or lightheadedness with the chest pain. Denies any nausea or vomiting. He has a previous history of [place] per the patient (chart review shows NSTEMI in April 2021). He is on Eliquis. Denies any DVT or PE history. He denies any history of stents in his heart. He was given 324 mg of aspirin by EMS. Pain resolved on EMS arrival. On arrival to the ER, the patient pain free. He reports he feels like his normal self. ROS: as above PHYSICAL EXAM: Constitutional: Patient appears in no acute distress. HENT: Head: Normocephalic and atraumatic. Eyes: EOMI, PERRL Mouth/Throat: Mucous membranes moist. Neck: Trachea midline. Neck supple. Cardiovascular: RRR, No murmurs, rubs or gallops. Intact distal pulses. Pulmonary/Chest: No respiratory distress. Breath sounds clear and equal bilaterally. No wheezes or rales. Abdominal: Abdomen soft, no tenderness, rebound or guarding. Musculoskeletal: No edema, tenderness or deformity noted. Skin: Warm and dry. No rash, erythema, pallor or cyanosis Psychiatric: Appropriate mood and affect for situation. Neurological: Alert and keenly responsive. CN II-XII grossly intact, moving all extremities equally and fully. MDM: - Vitals signs showed hypertension - History obtained via patient. History as above. - Chronic conditions affecting care: CAD (chronically occluded LCx with L-R collaterals); ischemic cardiomyopathy; severe aortic stenosis; HLD; HTN; CKD stage 3; COPD - Differential diagnoses include, but are not limited to: Acute coronary syndrome; pulmonary embolism; dissection; tension pneumothorax; esophageal rupture; pneumonia - Order placed for continuous cardiac monitoring. At this time, monitor showed rate of 72 bpm with normal sinus rhythm, per my interpretation. - External medical records reviewed. [facility] cardiology visit note dated 05/16/2024 was reviewed. Patient follows in their clinic for his aortic stenosis. He last had an echocardiogram on 08/17/2023 which showed an EF of 45 to 49%. Per documentation, no indication for aortic valve intervention at that time. His next echo and appointment is planned for April 2025. - EKG interpreted by myself showed normal sinus rhythm. Rate 73. QT 394. No acute ischemic changes. - Laboratory workup interpreted by myself showed leukopenia (WBC 3.62); thrombocytopenia (plt 124); normal PT/INR; normal troponin; elevated BNP (154); slight hyperkalemia (K 5.2); normal lipase - CXR negative for pneumonia, per my interpretation - Repeat troponin within normal limits - Moderate HEART score. -Discussed results with patient and his at bedside. reports that for the last few weeks patient has been having a slight decline and that he has been weaker than normal and having difficulties getting around. She expresses concern given his episodes of chest pain. They state that Dr. Hansen reported that he wanted to be on the alerted if the insurance comes in with cardiac complaints. We did attempt multiple times to contact Dr. Hansen, but he is not on-call currently for the [employer] system so he is not getting on his day off. is concerned about patient going home. Will contact hospitalist for admission for observation. - Discussion was had with case loader operator about patient's case and need for admission - Hospitalist consulted for admission - Patient admitted to [facility] hospitalist service for further evaluation and management. ASSESSMENT AND PLAN: Diagnosis: Chest pain; left arm pain Plan: Discharge Past Med/Surg History Problem List (Updated 09/25/24 @ 16:54 by Maryann Cole MD) Arm pain, left (Acute) Chest pain (Acute) Hemarthrosis involving knee joint Orthostatic hypotension Encounter for pre-operative examination Fecal occult blood test positive Anemia Weakness (Acute) Near syncope Dyspnea (Acute) Elevated troponin (Acute) Hypotension (Acute) Generalized weakness (Acute) Pneumonia (Acute) Acute respiratory failure with hypoxemia Bronchitis Hypoxia (Acute) Dyspnea on exertion DVT prophylaxis Ischemic cardiomyopathy CAD (coronary artery disease) Hypoxia (Acute) Acute bronchitis Acute respiratory failure with hypoxia (Acute) Non-ST elevation (NSTEMI) myocardial infarction Back pain (Acute) Elevated troponin (Acute) Dyslipidemia Moderate aortic stenosis HTN (hypertension) with goal to be determined CKD (chronic kidney disease), stage III Medical History Encounter for pre-operative examination CAD (coronary artery disease) Dyslipidemia Moderate aortic stenosis HTN (hypertension) with goal to be determined CKD (chronic kidney disease), stage III Surgical History History of cataract surgery S/P cardiac catheterization H/O lithotripsy Family History Sister Heart disease Brother Heart disease Social History Smoking Status: Former smoker Tobacco Type: Cigarettes Second Hand Exposure: No; Do You Dip or Chew Tobacco: No; Hx Alcohol Use: Yes Alcohol type: hard liquor Hx Substance Use: No Preferred Language: Portuguese Communication Ability: Effective Worship Director Required: No Beliefs That Will Affect Care: None marital status: Current Living Situation: Spouse Feels Safe at Home: Yes Assistive Devices: Cane Allergies Allergies Allergy/AdvReac Type Severity Reaction Status Date / Time No Known Allergies Allergy Unknown Verified 09/25/24 16:50 Home Meds Home Medications Medication Instructions Recorded Confirmed acetaminophen 500 mg tablet 1,000 mg PO Q6H PRN Pain 10/10/21 09/25/24 (Tylenol Extra Strength) clopidogrel 75 mg tablet 75 mg PO DAILY 09/17/22 09/25/24 metoprolol succinate 25 mg 25 mg PO QAM 09/17/22 09/25/24 tablet,extended release 24 hr nitroglycerin 0.4 mg sublingual 0.4 mg sublingual UD PRN Chest Pain 09/17/22 09/25/24 tablet atorvastatin 80 mg tablet 80 mg PO QPM 11/06/22 09/25/24 hydrocortisone 2.5 % topical cream 1 applic WA BID PRN irritation 11/30/22 09/25/24 with perineal applicator pantoprazole 40 mg tablet,delayed 40 mg PO QAM 09/20/23 09/25/24 release albuterol sulfate 2.5 mg/3 mL 2.5 mg continuous nebulization Q4 09/25/24 09/25/24 (0.083 %) solution for nebulization PRN Wheezing Previous Rx's Medication Instructions Recorded ipratropium 0.5 mg-albuterol 3 mg 3 ml NEB Q6H PRN sob/wheezing #90 09/24/22 (2.5 mg base)/3 mL nebulization mL soln Results & Data (ED) Vital Signs Vital Signs - 24 hr 09/25/24 11:15 09/25/24 11:38 09/25/24 11:47 Temperature 36.8 C 36.8 C Temperature Source Oral Oral Pulse Rate 81 71 Pulse Rate [Apical] 71 Pulse Rhythm Regular Regular Pulse Rhythm [Apical] Regular Pulse Strength Normal Pulse Strength [Apical] Normal Respiratory Rate 20 20 20 Respiratory Effort / Characteristics Non-Labored Spontaneous Non-Labored Spontaneous Respiratory Depth Normal Normal Respiratory Pattern Regular Regular Blood Pressure 142/86 H Blood Pressure [Left Arm] 142/86 H Blood Pressure Mean 104 Blood Pressure Mean [Left Arm] 104 Blood Pressure Position Lying Blood Pressure Position [Left Arm] Semi-fowlers Pulse Oximetry 94 96 94 Oxygen Delivery Method Room Air Room Air Room Air Sepsis Recent Fever Within 48 Hours No Sepsis New/Unexplained Change in Mental Status N/A Sepsis Action Taken by Nursing No Action Required 09/25/24 11:49 09/25/24 12:26 09/25/24 14:27 Temperature Temperature Source Pulse Rate 71 66 Pulse Rate [Apical] 61 Pulse Rhythm Regular Pulse Rhythm [Apical] Pulse Strength Pulse Strength [Apical] Respiratory Rate 20 20 Respiratory Effort / Characteristics Non-Labored Spontaneous Respiratory Depth Normal Respiratory Pattern Regular Blood Pressure Blood Pressure [Left Arm] 135/64 Blood Pressure Mean Blood Pressure Mean [Left Arm] 87 Blood Pressure Position Blood Pressure Position [Left Arm] Semi-fowlers Pulse Oximetry 98 95 Oxygen Delivery Method Room Air Room Air Sepsis Recent Fever Within 48 Hours Sepsis New/Unexplained Change in Mental Status Sepsis Action Taken by Nursing 09/25/24 15:00 09/25/24 15:27 09/25/24 16:38 Temperature Temperature Source Pulse Rate 67 Pulse Rate [Apical] 62 Pulse Rhythm Pulse Rhythm [Apical] Pulse Strength Pulse Strength [Apical] Respiratory Rate 17 Respiratory Effort / Characteristics Non-Labored Spontaneous Respiratory Depth Normal Respiratory Pattern Regular Blood Pressure Blood Pressure [Left Arm] 125/62 Blood Pressure Mean Blood Pressure Mean [Left Arm] 83 Blood Pressure Position Blood Pressure Position [Left Arm] Pulse Oximetry 93 Oxygen Delivery Method Room Air Sepsis Recent Fever Within 48 Hours Sepsis New/Unexplained Change in Mental Status Sepsis Action Taken by Nursing Laboratory Data 09/25/24 11:50 09/25/24 11:50 Lab Results 09/25/24 09/25/24 Range/Units 11:50 14:01 WBC 3.62 L (4.8-10.8) K/ul RBC 3.53 L (4.70-6.10) M/uL Hgb 10.6 L (14.0-18.0) g/dl Hct 33.2 L (42.0-52.0) % MCV 94.1 (80.0-100.0) fL MCH 30.0 (25.0-34.0) pg MCHC 31.9 L (32.0-36.0) g/dL RDW Std Deviation 49.8 H (36.4-46.3) fL RDW Coeff of [place] 14.4 (11.5-14.5) % Plt Count 124 L (130-400) K/uL MPV 11.0 (9.4-12.4) fL Immature Gran % (Auto) 0.3 % Neut % (Auto) 77.0 % Lymph % (Auto) 12.2 % [place] % (Auto) 9.1 % Eos % (Auto) 0.8 % Baso % (Auto) 0.6 % Neut # (Auto) 2.79 (1.40-6.50) K/uL Lymph # (Auto) 0.44 L (1.20-3.40) K/uL [place] # (Auto) 0.33 (0.11-0.59) K/uL Eos # (Auto) 0.03 (0.00-0.50) K/uL Baso # (Auto) 0.02 (0.00-0.20) K/uL Immature Gran # (Auto) 0.01 (0.01-0.20) K/uL PT 11.7 (9.0-12.0) Seconds INR 1.1 (0.9-1.1) Sodium 137 (136-145) mmol/L Potassium 5.2 H (3.5-5.1) mmol/L Chloride 104 (98-107) mmol/L Carbon Dioxide 28 (21-32) mmol/L Anion Gap 5 (3-11) BUN 27 H (6-23) mg/dl Creatinine 1.30 (0.6-1.4) mg/dl Est Cr Clr Drug Dosing 46.0 ml/min eGFR 55.19 BUN/Creatinine Ratio 20.8 H (10-20) Glucose 118 H (70-99(Fasting)) mg/dl Calcium 8.8 (8.6-10.3) mg/dl Total Bilirubin 0.6 (0.2-1.0) mg/dl AST 42 H (13-39) U/L ALT 30 (7-52) U/L Alkaline Phosphatase 188 H (34-104) U/L Troponin I High Sens 19.5 17.7 (0-20) pg/ml B-Natriuretic Peptide 154 H (0-100) pg/ml Total Protein 7.5 (6.0-8.3) gm/dl Albumin 3.9 (3.4-5.0) gm/dl Globulin 3.6 (2.5-4.0) gm/dl Albumin/Globulin Ratio 1.1 (0.9-2) Lipase 40 (11-82) U/L Imaging Data Radiologist's Impression: Chest X-Ray 09/25/24 11:49 XR chest 1V portable CLINICAL HISTORY: Chest pain, nonspecific COMPARISON STUDY: Chest CT December 01, 2022. Chest radiograph October 01, 2023. FINDINGS: Lung volumes are normal. Lungs are clear. There is no pneumothorax or pleural effusion. Cardiac size is stable. Mediastinal contours are normal. There is no evidence for pulmonary edema. IMPRESSION: No acute cardiopulmonary findings. ACT 112: Negative or not required by law. Electronically signed by: Diego Gavin M.D. 09/25/2024 12:44 PM Discharge Plan Visit Data Chief Complaint: Arm Pain Stated Complaint: L ARM PAIN ED Provider: Maryann Cole Discharge Problem: Chest pain, Arm pain, left Forms Stand Alone Forms: My [facility] Prescriptions Prescriptions: No Action clopidogrel 75 mg tablet 75 mg PO DAILY nitroglycerin 0.4 mg tablet, sublingual 0.4 mg sublingual UD PRN (Reason: Chest Pain) Rx Instructions: Take one nitro every 5 minutes up to three doses as needed for chest pain metoprolol succinate 25 mg tablet extended release 24 hr 25 mg PO QAM atorvastatin 80 mg tablet 80 mg PO QPM hydrocortisone 2.5 % cream with perineal applicator 1 applic WA BID PRN (Reason: irritation) pantoprazole 40 mg tablet,delayed release (DR/EC) 40 mg PO QAM acetaminophen [Tylenol Extra Strength] 500 mg Tablet 1,000 mg PO Q6H PRN (Reason: Pain) ipratropium-albuterol 0.5 mg-3 mg(2.5 mg base)/3 mL Solution For Nebulization 3 ml NEB Q6H PRN (Reason: sob/wheezing) Qty: 90 0RF albuterol sulfate 2.5 mg /3 mL (0.083 %) solution for nebulization 2.5 mg continuous nebulization Q4 PRN (Reason: Wheezing) Referrals Referrals: Sai Mason MD [Primary Care Provider] -
[2024-09-25 12:09] LABS: Basophils # (auto) 0.02 K/uL (0.00-0.20); Basophils % (auto) 0.6 %; Eosinophils # (auto) 0.03 K/uL (0.00-0.50); Eosinophils % (auto) 0.8 %; Hematocrit (blood only) 33.2 % (42.0-52.0); Hemoglobin 10.6 g/dl (14.0-18.0); Immature Granulocytes # (auto) 0.01 K/uL (0.01-0.20); Immature Granulocytes % (auto) 0.3 %; Lymphocytes # (auto) 0.44 K/uL (1.20-3.40); Lymphocytes % (auto) 12.2 %; Mean Corpuscular Hgb Conc 31.9 g/dL (32.0-36.0); Mean Corpuscular Volume 94.1 fL (80.0-100.0); Monocytes # (auto) 0.33 K/uL (0.11-0.59); Monocytes % (auto) 9.1 %; Neutrophils # (auto) 2.79 K/uL (1.40-6.50); Platelet Count 124 K/uL (130-400); RDW Coefficient of Variation 14.4 % (11.5-14.5); RDW Standard Deviation 49.8 fL (36.4-46.3); Red Blood Count 3.53 M/uL (4.70-6.10); White Blood Count 3.62 K/ul (4.8-10.8)
[2024-09-25 12:27] LABS: Albumin Globulin Ratio 1.1 (0.9-2); Albumin Level 3.9 gm/dl (3.4-5.0); BUN Creatinine Ratio 20.8 (10-20); Bilirubin,Total 0.6 mg/dl (0.2-1.0); Calcium 8.8 mg/dl (8.6-10.3); Globulin 3.6 gm/dl (2.5-4.0); Potassium 5.2 mmol/L (3.5-5.1); Total Protein 7.5 gm/dl (6.0-8.3)
[2024-09-25 12:31] LABS: Troponin I High Sensitivity 19.5 pg/ml (0-20)
--- NOTE | 2024-09-25 12:45 | XRay Report ---
XR chest 1V portable CLINICAL HISTORY: Chest pain, nonspecific COMPARISON STUDY: Chest CT December 01, 2022. Chest radiograph October 01, 2023. FINDINGS: Lung volumes are normal. Lungs are clear. There is no pneumothorax or pleural effusion. Car diac size is stable. Mediastinal contours are normal. There is no evidence for pulmonary edema. IMPRESSION: No acute cardiopulmonary findings. ACT 112: Negative or not required by law. Electronically signed by: Diego Gavin M.D. 09/25/2024 12:44 PM
[2024-09-25 13:19] LABS: INR 1.1 (0.9-1.1); Prothrombin Time 11.7 Seconds (9.0-12.0)
--- NOTE | 2024-09-25 18:08 | History & Physical Report ---
Date of Service September 25, 2024 Assessment & Plan (1) Arm pain, left: (2) CAD (coronary artery disease): (3) Ischemic cardiomyopathy: (4) Moderate to severe aortic stenosis: Plan: This is an 83-year-old male with PMH of moderate-severe aortic stenosis, history of NSTEMI in 2020 (medically managed), history of chronically occluded left circumflex with collaterals, chronic systolic congestive heart failure, dyslipidemia, COPD, hypertension, prediabetes, CKD 3 and other medical problems listed below who presents with left arm pain. L arm pain has resolved since arrival EKG without acute ST changes, HS trop negative x 2, CXR with no acute cardiopulmonary findings Doubt ACS, likely MSK as pain occurred while driving and has since resolved Monitor on tele overnight given cardiac history, family request Trend troponin, repeat EKG in AM, fasting lipids and a1c, repeat echo Continue plavix, atorvastatin, Toprol (5) Acute kidney injury superimposed on chronic kidney disease: Plan: Cr 1.3 (baseline 1.0) Encourage PO intake Repeat BMP in AM (6) HTN (hypertension) with goal to be determined: Plan: Normotensive. Continue Toprol DVT Ppx: SQ heparin Code status: FULL PCP: Isabella Dispo: Observation tele Patient seen in collaboration with Dr. Rockwell. Please see addendum. I spent a total of 75 minutes coordinating, documenting, and providing care for this patient excluding time spent in the performance of separately billed services. History of Present Illness Chief Complaint: Left arm pain Primary Care Provider: Sai Mason MD This is an 83-year-old male with PMH of moderate to severe aortic stenosis, chronic systolic congestive heart failure, dyslipidemia, COPD, hypertension, prediabetes, CKD 3 and other medical problems listed below who presents with left arm pain. 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 Pain lasted ap proximately 3-5 minutes. EMS was called and by the time they arrived, pain had resolved. Has not recurred during time in the emergency room. Denies any chest pain, dyspnea on exertion, palpitations, nausea or vomiting. is concerned due to patient's complex cardiac history with NSTEMI in 2020, medically managed. Noted to have chronically occluded left circumflex with collaterals. 2D echo from April 2024 with mildly reduced EF of 45-49%, grade 1 diastolic dysfunction, moderate to borderline severe aortic valve stenosis, moderate aortic valve regurgitation. Follows with Dr. Hansen in [place]. Currently asymptomatic. No F/C, lightheadedness, headache, CP, SOB, NV, abd pain, dysuria, diarrhea or constipation. Received aspirin en route. is concerned with slight decline over past few months. Patient is reportedly having a more difficult time getting around and is anxious left arm pain is cardiac related. Not comfortable with patient returning home until he can be observed overnight. Allergies Allergy/AdvReac Type Severity Reaction Status Date / Time No Known Allergies Allergy Unknown Verified 09/25/24 16:50 Home Medications Medication Instructions Recorded Confirmed Type acetaminophen 500 mg tablet 1,000 mg PO Q6H PRN Pain 10/10/21 09/25/24 History (Tylenol Extra Strength) clopidogrel 75 mg tablet 75 mg PO DAILY 09/17/22 09/25/24 History metoprolol succinate 25 mg 25 mg PO QAM 09/17/22 09/25/24 History tablet,extended release 24 hr nitroglycerin 0.4 mg sublingual 0.4 mg sublingual UD PRN Chest Pain 09/17/22 09/25/24 History tablet ipratropium 0.5 mg-albuterol 3 mg 3 ml NEB Q6H PRN sob/wheezing #90 09/24/22 09/25/24 Rx (2.5 mg base)/3 mL nebulization mL soln atorvastatin 80 mg tablet 80 mg PO QPM 11/06/22 09/25/24 History hydrocortisone 2.5 % topical cream 1 applic [place] BID PRN irritation 11/30/22 09/25/24 History with perineal applicator pantoprazole 40 mg tablet,delayed 40 mg PO QAM 09/20/23 09/25/24 History release albuterol sulfate 2.5 mg/3 mL 2.5 mg continuous nebulization Q4 09/25/24 09/25/24 History (0.083 %) solution for nebulization PRN Wheezing Past Med/Surg History Problem List (Updated 09/25/24 @ 17:55 by Angella Loza PA-C) Acute kidney injury superimposed on chronic kidney disease Arm pain, left (Acute) Ischemic cardiomyopathy CAD (coronary artery disease) Non-ST elevation (NSTEMI) myocardial infarction 2020 Medical History (Updated 09/25/24 @ 17:55 by Angella Loza PA-C) Moderate to severe aortic stenosis Dyslipidemia HTN (hypertension) with goal to be determined CKD (chronic kidney disease), stage III Surgical History History of cataract surgery S/P cardiac catheterization H/O lithotripsy Family History Sister Heart disease Brother Heart disease Social History Smoking Status: Former smoker Tobacco Type: Cigarettes Second Hand Exposure: No; Do You Dip or Chew Tobacco: No; Hx Alcohol Use: Yes Alcohol type: hard liquor Hx Substance Use: No Preferred Language: Irish Communication Ability: Effective Unattended Ground Sensor Specialist Required: No Beliefs That Will Affect Care: None marital status: Current Living Situation: Spouse Feels Safe at Home: Yes Assistive Devices: Cane Review of Systems Review of Systems: At least ten systems reviewed and negative except as noted in the HPI. Physical Exam Physical Exam: General Appearance: WD/WN, vitals as above, NAD, sitting up in bed, pleasant, conversing easily Head: normocephalic, atraumatic Eyes: normal inspection, PERRL, conjunctivae normal, anicteric sclerae ENT: external ear and nose normal, oropharynx with dry mucous membranes Neck: normal visual inspection, trachea midline, no thyromegaly Respiratory: normal respiratory effort, diminished breath sounds bilaterally. No accessory muscle use Cardiovascular: regular rate, rhythm, + PERLITA, normal peripheral pulses, no BLE edema. Vessels: no JVD Chest: normal inspection of chest Abdomen/GI: normal bowel sounds, soft, nontender, no hepatosplenomegaly Extremities/Musculoskeletal: no cyanosis or clubbing, extremities motor strength 5/5 Neurologic: PERRL, EOMI, accommodation nl, no face palsy, no dysarthria, CN's II-XI intact bilaterally and moves all extremities Psychiatric: A+Ox3, euthymic affect Skin: no rashes, normal color, warm/dry Results & Data Results & Data Vital Signs (Past 12 Hours) Vital Signs Temp Pulse Pulse Resp BP BP Pulse Ox 09/25/24 16:38 67 09/25/24 15:27 62 17 93 09/25/24 15:00 125/62 09/25/24 14:27 61 20 135/64 95 09/25/24 12:26 66 09/25/24 11:49 71 20 98 09/25/24 11:47 36.8 C 71 20 142/86 H 94 09/25/24 11:38 71 20 96 09/25/24 11:15 36.8 C 81 20 142/86 H 94 O2 Del Method 09/25/24 16:38 09/25/24 15:27 Room Air 09/25/24 15:00 09/25/24 14:27 Room Air 09/25/24 12:26 09/25/24 11:49 Room Air 09/25/24 11:47 Room Air 09/25/24 11:38 Room Air 09/25/24 11:15 Room Air Laboratory Results Short CBC 09/25/24 Range/Units 11:50 WBC 3.62 L (4.8-10.8) K/ul Hgb 10.6 L (14.0-18.0) g/dl Hct 33.2 L (42.0-52.0) % Plt Count 124 L (130-400) K/uL BMP 09/25/24 11:50 Sodium 137 Potassium 5.2 H Chloride 104 Carbon Dioxide 28 BUN 27 H Creatinine 1.30 Glucose 118 H Calcium 8.8 Liver Function 09/25/24 Range/Units 11:50 Total Bilirubin 0.6 (0.2-1.0) mg/dl AST 42 H (13-39) U/L ALT 30 (7-52) U/L Alkaline Phosphatase 188 H (34-104) U/L Albumin 3.9 (3.4-5.0) gm/dl Diagnostic Findings Chest X-Ray 09/25/24 11:49 XR chest 1V portable CLINICAL HISTORY: Chest pain, nonspecific COMPARISON STUDY: Chest CT December 01, 2022. Chest radiograph October 01, 2023. FINDINGS: Lung volumes are normal. Lungs are clear. There is no pneumothorax or pleural effusion. Cardiac size is stable. Mediastinal contours are normal. There is no evidence for pulmonary edema. IMPRESSION: No acute cardiopulmonary findings. ACT 112: Negative or not required by law. Electronically signed by: Diego Gavin M.D. 09/25/2024 12:44 PM Code Status & VTE Plan VTE Prophylaxis Plan VTE Prophylaxis will be ordered: Yes Supervising Physician Co-Signing Physician Notes Attending Addendum: Case reviewed with the advanced practitioner. I have personally performed a history and physical examination on the patient. I have reviewed the advanced practitioner's documentation on the date of service referenced in note, and I agree with, and take responsibility for the plan of care. please refer to her notes for full details patient seen and examined, records reviewed by myself as well on exam, patient seen resting in bed, comfortable, in good spirits L arm pain resolved no chest pain, dyspnea, palpitations, dizziness no other symptoms VS noted and reviewed oriented x 3, not in distress, speaks in sentences with no effort nor accessory muscle use normal rate, regular rhythm, (+) holosystolic murmurs clear breath sounds bilaterally non distended, soft, nontender no bipedal edema, erythema, warmth no neuro deficits all labs, imaging noted and reviewed ASSESSMENT AND PLAN> Left arm pain History of CAD, severe aortic stenosis Rule out ACS Troponins negative x 2 EKG no signs of acute ischemia or infarct Check echocardiogram Continue usual Plavix, metoprolol, Lipitor Cardiology service consulted other diagnoses and plan of care as per advanced practitioner's notes Lane Rockwell MD
[2024-09-25] MEDS ORDERED: POLYETHYLENE (MIRALAX) 17 GM PACK PO PRN (20:08)
[2024-09-25] MEDS ORDERED: ACETAMINOPHEN 325 MG TAB PO PRN (20:08)
[2024-09-25] MEDS ORDERED: ALBUTEROL 0.083% NEBU SOLN 3 ML VIAL INH PRN (20:08)
[2024-09-25] MEDS ORDERED: ONDANSETRON INJ 2 MG/ML 2 ML VIAL IV PRN (20:08)
[2024-09-25] MEDS ORDERED: ALBUT/IPRATROP 3MG/0.5MG NEB 3 ML VIAL NEB PRN (20:08)
[2024-09-25] MEDS: ATORVASTATIN 40 MG TAB PO SCH (20:45)
[2024-09-25] MEDS: HEPARIN SOD 5,000 UNIT/0.5 ML VIAL SQ SCH (21:45)
--- OUTSIDE RECORDS SUMMARY | 2024-09-25 23:32 | External Medical Summary | Summary of Care ---
Author Name Unknown Organization [facility] Address [address] [facility] [place] [address] Phone [phone] Care Team Providers Care Fiberg[employer] Luggage Molder Name Role Phone Sai Mason MD Primary Care Provider [phone] Encounter Details Date Type Department Care Team (Late st Contact Info) Description 08/30/2024 Orders Only PATIENT PORTAL DO NOT DELETE THIS DEPT USED BY [place] [id number] Allergies No known active allergiesdocumented as of this encounter (statuses as of 08/30/2024) Medications Medication Sig Dispensed Refills Start Date End Date Status Acetaminophen 500 MG Oral Tablet (Tylenol) Take 2 Tablets by mouth every 6 hours as needed. Active Nitroglycerin 0.4 MG Sublingual Tablet Sublingual (Nitrostat) Place 1 Tablet under the tongue every 5 minutes as needed for Pain, Chest. up to 3 doses in 15 minutes 20 Tablet 04/17/2023 Active Albuterol Sulfate (2.5 MG/3ML) 0.083% Inhalation Nebulization Solution (Proventil)Indication s:Bronchitis, complicated Inhale 1 Vial via nebulizer every 4 hours as needed for Wheezing. 24 mL 3 09/26/2023 Active Atorvastatin Calcium 80 MG Oral Tablet (Lipitor) Take 1 Tablet by mouth every afternoon. 90 Tablet 3 12/19/2023 Active Ipratropium-Albuterol 0.5-2.5 (3) MG/3ML Inhalation Solution (Duoneb)Indications:C OPD, group B, by GOLD 2017 classification ([facility]),Restrictive lung disease Inhale 3 mL by mouth every 6 hours as needed for Shortness of Breath. 120 mL 1 03/21/2024 Active Montelukast Sodium 10 MG Oral Tablet (Singulair)Indication s:COPD, group B, by GOLD 2017 classification ([facility]),Restrictive lung disease Take 1 Tablet by mouth in the morning. (Mucus and cough). 30 Tablet 03/21/2024 Active Pantoprazole Sodium 40 MG Oral Tablet Delayed Release (Protonix) Take 1 Tablet by mouth in the morning. 90 Tablet 3 04/30/2024 Active Clopidogrel Bisulfate 75 MG Oral Tablet (pLAVix) TAKE 1 TABLET IN THE MORNING 90 Tablet 3 04/30/2024 Active Metoprolol Succinate ER 25 MG Oral Tablet Extended Release 24 Hour (toPROL XL) Take 1 Tablet by mouth in the morning. 90 Tablet 2 07/08/2024 Active Hydrocortisone (Perianal) 2.5 % External CreamIndications:Exte rnal hemorrhoids ADMINISTER INTO THE RECTUM TWO TIMES A DAY 90 g 3 08/16/2024 Active documented as of this encounter (statuses as of 08/30/2024) Active Problems Problem Noted Date Diagnosed Date Chronic systolic congestive heart failure 2023 COPD, group B, by GOLD 2017 classification 02/28 Overview: Per COPD GOLD Classification Systolic congestive heart failure 11/19/2022 Prediabetes 11/01/2022 Overview: Per Prediabetes protocol Stage 3a chronic kidney disease 09/29/2020 Overview: Per CKD protocol - Per CKD protocol 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 11/07/2019 Moderate aortic stenosis 11/07/2019 Exudative age-related macular degeneration of ri ght eye 05/09/2019 HTN, goal below 140/90 04/27/2011 Dyslipidemia, goal LDL below 130 10/23/2010 documented as of this encounter (statuses as of 08/30/2024) Resolved Problems Problem Noted Date Diagnosed Date Resolved Date Chronic obstructive pulmonary disease 02/13/2023 03/03/2023 Overview: Per COPD GOLD Classification NSTEMI (non-ST elevated myoc ardial infarction) 05/15/2021 05/18/2021 Kidney disease, chronic, sta ge III (GFR 30-59 ml/min) 12/03/2019 10/02/2020 Overview: Per CKD protocol Tobacco use disorder 05/03/2018 019 HTN, goal below 130/80 06/04/201004/27 ADVANCE DIRECTIVE INFORMATION 03/16/2007 11/02/2017 Overview: No, Advance Directive brochure given to patient. Myalgia and myositis 03/08/2006 010 JOINT PAIN-SHLDER 03/08/2006 06/04/2010 HX OF CALCULUS OF KIDNEY(aka NEPHROLITHIASIS) 03/08/20 06 04/22/2017 Dyslipidemia, goal to be determined 07/03/2004 10/23/2010 CALCULUS OF KIDNEY(aka NEPHROLITHIASIS) 07/03/2004 06/04/2010 documented as of this encounter (statuses as of 08/30/2024) Immunizations Name Administration Dates Next Due COVID-19 mRNA, LNP-s, No Pre serve, 2-Dose Series ([employer]) 10/30/2021,02/16/2021,01/21/2021 COVID-19, LNP-s, No Preserve , Carroll-sucrose, Ages 12+ (Pfizer) 06/08/2022 Covid-19, Mrna, Lnp-s, Pf, B ivalent, 30 Mcg, IM, 12 yrs and above (Pfizer) 01/03/2023 Pneumococcal Conjugate Vacci ne, 20-valent ([id number]) 11/19/2022 Season Influenza, Quad, PF, Adjuvanted, 65+ Yrs, IM (FLUAD) 11/19/2020 Seasonal Influenza, High Dos e, Trivalent, PF, IM (Fluzone HD) 08/28/2024 Seasonal Influenza, Quadriva lent Hd (Fluzone Hd) 08/04/2023,08/03/2022,10/22/2021 documented as of this encounter Social History Tobacco Use Types Packs/Day Years Used Date Smoking Tobacco: Former Cigarettes 2017 Cigars Smokeless Tobacco: Never Comments:Smoked occasionally (a couple a week) for 50 years Alcohol Use Standard Drinks/Week Comments No 0 (1 standard drink = 0.6 oz pur e alcohol) PHQ-2 Answer Date Recorded PHQ Adult Total Score 0 03/21/2024 Hunger Vital Sign Answer Date Recorded Within the past 12 months, y ou worried that your food would run out before you got the money to buy more. Never true 08/28/20 24 Within the past 12 months, t he food you bought just didn't last and you didn't have money to get more. Never true 08/28/2024 Childcare Answer Date Recorded Do you feel overwhelmed with taking care of a child, family member or friend? No 08/28/2024 Does your family need help f inding childcare? (Household - for ages 0-17 years) Not on file 08/28/2024 Clothing Answer Date Recorded Have you been unable to get clothing when it was really needed? No 08/28/2024 Is your family able to get c lothes or diapers when needed? (Household - for ages 0-17 years) Not on file 08/28/2024 Personal Safety Answer Date Recorded Do you feel unsafe or have concerns for your saf ety? No 08/28/2024 Do you have concerns for you r family's safety? (Household - for ages 0-17 years) Not on file 08/28/2024 Utilities Answer Date Recorded Do you have trouble paying y our heating, water, or electric bill? No 08/28/2024 Is your family able to pay t he heat, water, or electric bill? (Household - for ages 0-17 years) Not on file 08/28/2024 Does your family have access to good internet? (Household - for ages 0-17 years) Not on file 08/28/2024 Employment Status Answer Date Recorded Are you unemployed or without regular income? No 08/28/2024 Does the household have a re gular source of income? (Household - for ages 0-17 years) Not on file 08/28/2024 Social Connections Answer Date Recorded How often do you feel lonely or isolated from th ose around you? Never 08/28/2024 Financial Resource Strain Answer Date R ecorded Do you have any trouble payi ng for your medications, or do you think you might in the future? No 08/28/2024 Does your family have troubl e paying for medicine? (Household - for ages 0-17 years) Not on file 08/28/2024 Transportation Needs Answer Date Record ed Do you have trouble getting a ride to medical visits or work? (Adult - for ages 18 years and over) Not on file 08/28/2024 Does your family have a hard time getting a ride to doctors visits? (Household - for ages 0-17 years) Not on file 08/28/2024 Has lack of transportation k ept you from medical appointments, meetings, work, or from getting things needed for daily living? Check all that apply. No 08/28/2024 Do you (or your family) have trouble finding or paying for a ride (transportation)? (Household - for ages 0-17 years) Not on file 08/28/2024 Housing Stability Answer Date Recorded Do you currently live in a s helter or have no steady place to sleep at night? No 08/28/2024 Do you think you are at risk of becoming homeless? (Adult - for ages 18 years and over) Not on file 08/28/2024 Does your family worry about paying for your home or becoming homeless? (Household - for ages 0-17 years) Not on file 1 Are you homeless or worried that you might be in the future? No 08/28/2024 Are you (or your family) steve eless or worried that you might be in the future? (Household - for ages 0-17 years) Not on file Food Insecurity Answer Date Recorded Do you need food for this week? No 08/28/2024 Are you able to get enough f ood for your family? (Household - for ages 0-17 years) Not on file 08/28/2024 Does your family need food t his week? (Household - for ages 0-17 years) Not on file 08/28/2024 Do you always have enough fo od for your family? (Household - for ages 0-17 years) Not on file 08/28/2024 Sex and Gender Information Value Date Recorded Sex Assigned at Male 08/28/2024 8:57 AM EDT Gender Identity Male 08/28/2024 8:57 AM EDT Sexual Orientation Straight 08/28/2024 8: 57 AM EDT Job Start Date Occupation Industry Not on file Not on file Not on file documented as of this encounter Functional Status Functional Status Response Date of Assess ment Are you deaf or do you have serious difficulty h earing? No 05/15/2021 Are you blind or do you have serious difficulty seeing, even when wearing glasses? No 05/15/2021 Do you have serious difficul ty walking or climbing stairs? (5 years old or older) No 05/15/2021 Do you have difficulty dress ing or bathing? (5 years old or older) No 05/15/2021 Because of a physical, menta l, or emotional condition, do you have difficulty doing errands alone such as visiting a doctor s office or shopping? (15 years old or older) No 05/15/20 Cognitive Status Response Date of Assessm ent Because of a physical, menta l, or emotional condition, do you have serious difficulty concentrating, remembering, or making decisions? (5 years old or older) No 05/15/2021 documented as of this encounter Plan of Treatment Upcoming Encounters Date Type Department Care Team (Late st Contact Info) Description 02/08/2025 12:00 PM EDT Imaging Radiology [facility] [address] [place] [address] 03/05/2025 4:00 PM EDT Office Visit [facility] [address] [place] [address] Sai Mason MD [address] [place] [address] 05/15/2025 8:30 AM EDT Cardiac Studies Cardiac Studies, [facility] [address] [facility] [place] [id number] 05/15/2025 9:30 AM EDT Office Visit Cardiology, [facility] [address] [place] [address] Sj Hansen MD [address] [place] [address] Health Maintenance Due Date Last Done Comments Alpha-1 Antitrypsin 1960 Adult Wellness Visit 2008 Albumin/Creatinine Ratio 08/23/2024 08/23/2023 COVID-19 Vaccine ( season) 2024 01/03/2023, 06/08/2022, 10/30/2021, Additional history exists Postponed from 07/22/2024 (Patient Declined After Education) DTap/Tdap Vaccines (1 - Tdap) 09/29/2024 Postponed from 1961 (Insurance/Financial) Zoster Vaccines (1 of 2) 09/29/2024 Pos tponed from 1992 (Patient Declined After Education) CKD HGB USE SMARTSET 98309 02/02/202502/02, 08/23/2023, 12/20/2022, Additional history exists GFR 02/26/2025 08/28/2024, 01/19, 08/23/2023, Additional history exists Depression Screening 03/21/2025 03/21/2024 CKD PHOS USE SMARTSET [id number] 08/28/2025 10/0 06/2024, 08/03/2022, 11/19/2020 HbA1c 08/28/2025 08/28/2024, 01/19, 08/23/2023, Additional history exists O2 ASSESSMENT COMPLETED IN PAST YEAR FOR COPD 08/28/2025 08/28/2024 Pneumococcal Vaccine: 65+ Years Completed 11/19/2022 HPV (Gardasil) Vaccine Aged Out No lo nger eligible based on patient's age to complete this topic Hepatitis B Vaccine Aged Out No longe r eligible based on patient's age to complete this topic MENINGOCOCCAL (MENACTRA/MENVEO) Aged Out No longer eligible based on patient's age to complete this topic documented as of this encounter Medical Devices Implanted Type Area Ice Cream Freezer Helper Device Identifier Shelf Expiration Date Model / Serial / Lot Lens 25.0 [id number] - [id number] - [id number] Implanted:Qty: 1 on 07/20/2018 by Ab Velazquez MD at [facility] Left: Eye [employer]USCH [employer] LOMB 12/21/2019 [id number]-94.0 / [id number] / [id number] documented as of this encounter Advance Directives * Full Code (Latest Code Status on File) Date Activated Date Inactivated Comments 05/15/2021 10:04 PM 05/19/2021 3:17 PM This order reflects the patients wishes and were consensually agreed upon. Question Answer Comments Discussion of Advance Directives occurred with: Patient * Full Code Date Activated Date Inactivated Comments 07/20/2018 1:07 PM 07/20/2018 7:54 PM This order r eflects the patients wishes and were consensually agreed upon. Care Teams [employer] Luggage M[employer] Relationship Specialty Start Date End Date Sai Mason MD [address] [place] [address] PCP - General 01/17/06 documented as of this encounter
--- OUTSIDE RECORDS SUMMARY | 2024-09-25 23:33 | External Medical Summary | Summary of Care ---
Author Name Unknown Organization [facility] Address [address] [place] [address] Phone [phone] Care Team Providers Care Guest Services Coordinator Name Role Phone Margarita Hurley MD Primary Care Provider [phone]- [phone] Reason for Visit * Reason Onset Date Comments Medication Refill 07/08/2024 Encounter Details Date Type Department Care Team (Late st Contact Info) Description 07/08/2024 Refill [facility] [address] [place] [phone] Margarita Hurley MD [address] [place] [address] Allergies No known active allergiesdocumented as of this encounter (statuses as of 07/08/2024) Medications Medication Sig Dispensed Refills Start Date End Date Status Acetaminophen 500 MG Oral Tablet (Tylenol) Take 2 Tablets by mouth every 6 hours as needed. Active Benzonatate 100 MG Oral Capsule (Tessalon Perles)Indications: Pneumonia due to infectious organism, unspecified laterality, unspecified part of lung Take 1 Capsule (100 mg) by mouth 3 times a day as needed for Cough. 90 Capsule 1 09/28/2022 Active Additional Information Patient not taking.Reported on 05/16/2024 Nitroglycerin 0.4 MG Sublingual Tablet Sublingual (Nitrostat) Place 1 Tablet under the tongue every 5 minutes as needed for Pain, Chest. up to 3 doses in 15 minutes 20 Tablet 04/17/2023 Active Additional Information Patient not taking.Reported on 05/16/2024 Hydrocortisone (Perianal) 2.5 % External Cream (Proctozone-HC)Anastasia cations:External hemorrhoids ADMINISTER INTO THE RECTUM TWO TIMES A DAY 90 g 3 07/04/2023 Active Albuterol Sulfate (2.5 MG/3ML) 0.083% Inhalation Nebulization Solution (Proventil)Indicati ons:Bronchitis, complicated Inhale 1 Vial via nebulizer every 4 hours as needed for Wheezing. 24 mL 3 09/26/2023 Active Atorvastatin Calcium 80 MG Oral Tablet (Lipitor) Take 1 Tablet by mouth every afternoon. 90 Tablet 3 12/19/2023 Active Ipratropium-Albuter ol 0.5-2.5 (3) MG/3ML Inhalation Solution (Duoneb)Indications :COPD, group B, by GOLD 2017 classification ([facility]),Restrictive lung disease Inhale 3 mL by mouth every 6 hours as needed for Shortness of Breath. 120 mL 1 03/21/2024 Active Additional Information Patient not taking.Reported on 05/16/2024 Montelukast Sodium 10 MG Oral Tablet (Singulair)Indicati ons:COPD, group B, by GOLD 2017 classification ([facility]),Restrictive lung disease Take 1 Tablet by mouth in the morning. (Mucus and cough). 30 Tablet 03/21/2024 Active Additional Information Patient not taking.Reported on 05/16/2024 Azithromycin 250 MG Oral Tablet (Zithromax Z-Dhruv)Indications:C OPD, group B, by GOLD 2017 classification ([facility]),Restrictive lung disease Take two tablets by mouth on first day, then 1 tablet daily until gone 6 Tablet 03/21/2024 Active Additional Information Patient not taking.Reported on 05/16/2024 Pantoprazole Sodium 40 MG Oral Tablet Delayed [...] the morning. 90 Tablet 2 07/08/2024 Active Metoprolol Succinate ER 25 MG Oral Tablet Extended Release 24 Hour (toPROL XL) Take 1 Tablet by mouth in the morning. 90 Tablet 1 11/15/2023 4 Discontinu ed(Refill) documented as of this encounter (statuses as of 07/08/2024) Active Problems Problem Noted Date Diagnosed Date COPD, group B, by GOLD 2017 classification [...] as of this encounter (statuses as of 07/08/2024) Resolved Problems Problem Noted Date Diagnosed Date [...] as of this encounter (statuses as of 07/08/2024) Immunizations Name Administration Dates Next Due COVID-19 mRNA, LNP-s, No Pre serve, 2-Dose Series (Pfizer) 10/30/2021,02/16/2021,01/21/2021 COVID-19, LNP-s, No Preserve , Carroll-sucrose, Ages 12+ (Pfizer) 06/08/2022 Covid-19, Mrna, Lnp-s, Pf, B ivalent, 30 Mcg, IM, 12 yrs and above (Pfizer) 01/03/2023 Pneumococcal Conjugate Vacci ne, 20-valent ([id number]) 11/19/2022 Pneumococcal Polysaccharide PPV23 (Pneumovax) 11/19/2020(Deferred: Patient Refused) Season Influenza, Quad, PF, Adjuvanted, 65+ Yrs, IM (FLUAD) 11/19/2020 Seasonal Influenza, Quadriva lent Hd (Fluzone Hd) [...] the money to buy more. Never true 12/15/19 23 Within the past 12 months, t he food you bought just didn't last and you didn't have money to get more. Never true 12/15/2022 Utilities Answer Date Recorded Do you have trouble paying y our heating, water, or electric bill? (Adult - for ages 18 years and over) Not on file 05/08/2024 Is your family able to pay t he heat, water, or electric bill? (Household - for ages 0-17 years) Not on file 05/08/2024 Does your family have access to good internet? (Household - for ages 0-17 years) Not on file 05/08/2024 Social Connections Answer Date Recorded How often do you feel lonely or isolated from those around you? (Adult - for ages 18 years and over) Not on file 05/08/2024 Sex and Gender Information Value Date Recorded Sex Assigned at Not on file Gender Identity Not on file Sexual Orientation Not on file Job Start Date Occupation Industry Not on [...] (15 years old or older) No 05/15/20 21 Cognitive Status Response Date of Assessm ent Because of a physical, menta l, or emotional condition, do you have serious difficulty concentrating, remembering, or making decisions? (5 years old or older) No 05/15/2021 documented as of this encounter Miscellaneous Notes * Telephone Encounter - Lurdes Hernandez hai - 07/08/2024 1:38 PM EDTSigned Prescriptions: Disp Refills Metoprolol Succinate ER 25 MG Oral Tablet *90 Tab*2 Sig: Take 1Tablet by mouth in the morning.Authorizing Provider: MARGARITA HURLEY User: LURDES HERNANDEZ documented in this encounter Plan of Treatment Upcoming Encounters Date Type Department Care Team (Late st Contact Info) Description 08/28/2024 9:00 AM EDT Office Visit [facility], [place] [address] [place] [phone] Margarita Hurley MD [address] [place] [address] 02/08/2025 12:00 PM EDT Imaging Radiology [facility] [address] [place] [address] 05/15/2025 8:30 AM EDT Cardiac Studies Cardiac Studies, [address] [place] [address] 05/15/2025 9:30 AM EDT Office Visit Cardiology, [address] [address] Sj Hansen MD [address] [place] [address] Health Maintenance Due Date Last Done Comments Alpha-1 Antitrypsin 1960 DTaP,Tdap,and Td Vaccines (1 - Tdap) 1961 Zoster Vaccines (1 of 2) 1992 Adult Wellness Visit 2008 COVID-19 Vaccine (24 season) 2023 01/03/2023, 06/08/2022, 10/30/2021, Additional history exists CKD PHOS USE SMARTSET 60054 08/03/2023 08/03/2022, 1 GFR 08/05/2024 02/03/2024, 01/2023, 12/20/2022, Additional history exists Albumin/Creatinine Ratio 08/23/2024 08/23/2023 CKD HGB USE SMARTSET 13366 02/02/202502/02, 08/23/2023, 12/20/2022, Additional history exists HbA1c 02/02/2025 02/03/2024, 100 01/2023, 09/23/2022, Additional history exists Depression Screening 03/21/2025 03/21/2024 O2 ASSESSMENT COMPLETED IN PAST YEAR FOR COPD 03/21/2025 03/21/2024 Pneumococcal Vaccine: 65+ Years Completed 11/19/2022 HPV [...] this encounter Medical Devices Implanted Type Area Magento Developer Device Identifier Shelf Expiration Date Model / Serial / Lot Lens 25.0 Mx60e - [id number] - [id number] Implanted:Qty: 1 on 07/20/2018 by Ab eVlazquez MD at OR [facility] Left: Eye BAUSCH [employer] LOMB 12/21/2019 TH34F-92.0 / [id number] / [id number] documented as of this encounter Advance Directives [...] and were consensually agreed upon. Care Teams Guest Services Coordinator Relationship Specialty Start Date End Date Margarita Hurley MD [address] [place] [address] PCP - General 01/17/06 documented as of this encounter
--- OUTSIDE RECORDS SUMMARY | 2024-09-25 23:33 | External Medical Summary | Summary of Care ---
Author Name Unknown Organization [facility] Address [address] [place] [address] Phone [phone] Care Team Providers Care Stoker Installer Name Role Phone Margarita Hurley MD Primary Care Provider [phone]- [phone] Reason for Visit * Reason Comments eRx-Medication Refill Encounter Details Date Type Department Care Team (Late st Contact Info) Description 08/15/2024 Refill [facility] [address] [place] [phone] Margarita Hurley MD [address], [place] [address] External hemorrhoids Allergies No known active allergiesdocumented as of this encounter (statuses as of 08/16/2024) Medications Medication Sig Dispensed Refills Start Date End Date Status Acetaminophen 500 MG Oral Tablet (Tylenol) Take 2 Tablets by mouth every 6 hours as needed. Active Benzonatate 100 MG Oral Capsule (Tessalon Perles)Indications: Pneumonia due to infectious organism, unspecified laterality, unspecified part of lung Take 1 Capsule (100 mg) by mouth 3 times a day as needed for Cough. 90 Capsule 1 2 Active Additional Information Patient not taking.Reported on 05/16/2024 Nitroglycerin 0.4 MG Sublingual Tablet Sublingual (Nitrostat) Place 1 Tablet under the tongue every 5 minutes as needed for Pain, Chest. up to 3 doses in 15 minutes 20 Tablet 3 Active Additional Information Patient not taking.Reported on 05/16/2024 Albuterol Sulfate (2.5 MG/3ML) 0.083% Inhalation Nebulization Solution (Proventil)Indicati ons:Bronchitis, complicated Inhale 1 Vial via nebulizer every 4 hours as needed for Wheezing. 24 mL 3 3 Active Atorvastatin Calcium 80 MG Oral Tablet (Lipitor) Take 1 Tablet by mouth every afternoon. 90 Tablet 3 4 Active Ipratropium-Albuter ol 0.5-2.5 (3) MG/3ML Inhalation Solution (Duoneb)Indications :COPD, group B, by GOLD 2017 classification ([facility]),Restrictive lung disease Inhale 3 mL by mouth every 6 hours as needed for Shortness of Breath. 120 mL 1 4 Active Additional Information Patient not taking.Reported on 05/16/2024 Montelukast Sodium 10 MG Oral Tablet (Singulair)Indicati ons:COPD, group B, by GOLD 2017 classification ([facility]),Restrictive lung disease Take 1 Tablet by mouth in the morning. (Mucus and cough). 30 Tablet 4 Active Additional Information Patient not taking.Reported on 05/16/2024 Azithromycin 250 MG Oral Tablet (Zithromax Z-Dhruv)Indications:C OPD, group B, by GOLD 2017 classification ([facility]),Restrictive lung disease Take two tablets by mouth on first day, then 1 tablet daily until gone 6 Tablet 4 Active Additional Information Patient not taking.Reported on 05/16/2024 Pantoprazole Sodium 40 MG Oral Tablet Delayed Release (Protonix) Take 1 Tablet by mouth in the morning. 90 Tablet 3 4 Active Clopidogrel Bisulfate 75 MG Oral Tablet (pLAVix) TAKE 1 TABLET IN THE MORNING 90 Tablet 3 4 Active Metoprolol Succinate ER 25 MG Oral Tablet Extended Release 24 Hour (toPROL XL) Take 1 Tablet by mouth in the morning. 90 Tablet 2 4 Active Hydrocortisone (Perianal) 2.5 % External CreamIndications:Ex ternal hemorrhoids ADMINISTER INTO THE RECTUM TWO TIMES A DAY 90 g 3 4 Active Hydrocortisone (Perianal) 2.5 % External Cream (Proctozone-HC)Anastasia cations:External hemorrhoids ADMINISTER INTO THE RECTUM TWO TIMES A DAY 90 g 3 3 08/16/20 24 Discontinued documented as of this encounter (statuses as of 08/16/2024) Active Problems Problem Noted Date Diagnosed Date [...] as of this encounter (statuses as of 08/16/2024) Resolved Problems Problem Noted Date Diagnosed Date [...] as of this encounter (statuses as of 08/16/2024) Immunizations Name Administration Dates Next Due COVID-19 mRNA, LNP-s, No Pre serve, 2-Dose Series (Pfizer) 10/30/2021,02/16/2021,01/21/2021 COVID-19, LNP-s, No Preserve , Carroll-sucrose, Ages 12+ (Pfizer) 06/08/2022 Covid-19, Mrna, Lnp-s, Pf, B ivalent, 30 Mcg, IM, 12 yrs and above (Pfizer) 01/03/2023 Pneumococcal Conjugate Vacci ne, 20-valent ([id number]) 11/19/2022 Pneumococcal Polysaccharide PPV23 (Pneumovax) 11/19/2020(Deferred: Patient [...] encounter Miscellaneous Notes * Telephone Encounter - Margarita Hurley MD - 08/16/2024 5:12 PM EDTSigned Prescriptions: Disp Refills Hydrocortisone (Perianal) 2.5 % External C*90 g 3 Sig: ADMINISTER INTO THE RECTUM TWO TIMES A DAYAuthorizing Provider: MARGARITA HURLEY * Telephone Encounter - Jaylyn Jones LPN - 08/15/2024 3:09 PM EDTPending Prescriptions: Disp Refills Hydrocortisone (Perianal) 2.5 % External C*90 g 3 Sig: ADMINISTER INTO THE RECTUM TWO TIMES A DAY * Telephone Encounter - Andrzej Olivares - 08/15/2024 1:15 PM EDTPending Prescriptions: Disp Refills Hydrocortisone (Perianal) 2.5 % External C*90 g 3 Sig: ADMINISTER INTO THE RECTUM TWO TIMES A DAY documented in this encounter Plan of Treatment Upcoming Encounters Date Type Department Care Team (Late st Contact Info) Description 08/28/2024 9:00 AM EDT Office Visit [facility] [address] [place] [address] Margarita Hurley MD [address] [place] [address] 02/08/2025 12:00 PM EDT Imaging Radiology [facility] 1st Floor, [address] [place] [address] 05/15/2025 8:30 AM EDT Cardiac Studies Cardiac Studies, [address] [place] [address] 05/15/2025 9:30 AM EDT Office Visit Cardiology, [address] [place] [address] Sj Hansen MD [address] [place] [address] Health Maintenance Due Date Last Done Comments Alpha-1 Antitrypsin 1960 DTap/Tdap Vaccines (1 - Tdap) 1961 Zoster Vaccines (1 of 2) 1992 Adult Wellness Visit 2008 CKD PHOS USE SMARTSET 37851 08/03/2023 08/03/2022, 1 COVID-19 Vaccine ( season) 2024 01/03/2023, 06/08/2022, 10/30/2021, Additional history exists GFR 08/05/2024 02/03/2024, 100 01/2023, 12/20/2022, Additional history exists Albumin/Creatinine Ratio 08/23/2024 08/23/2023 CKD HGB USE SMARTSET 44705 02/02/202502/02, 08/23/2023, 12/20/2022, Additional history exists HbA1c [...] this encounter Medical Devices Implanted Type Area Gear Hobber Operator Device Identifier Shelf Expiration Date Model / Serial / Lot Lens 25.0 Mx60e - [id number] - [id number] Implanted:Qty: 1 on 07/20/2018 by Ab Velazquez MD at OR [facility] Left: Eye BAUSCH [employer] LOMB 12/21/2019 [id number]-20.0 / [id number] / [id number] documented as of this encounter Visit Diagnoses Diagnosis External hemorrhoids External hemorrhoids without mention of complication documented in this encounter Advance Directives * Full Code [...] and were consensually agreed upon. Care Teams Stoker Installer Relationship Specialty Start Date End Date Margarita Hurley MD [address] [facility] [place] [address] PCP - General 01/17/06 documented as of this encounter
--- OUTSIDE RECORDS SUMMARY | 2024-09-25 23:33 | External Medical Summary ---
Author Name Unknown Address Unknown Organization K01:[facility] [place] [address] [place] [address] Laboratory Report Ordering Provider Test Date Status XAVI AVILA 08/28/2024 10:23:51 Final Observation Date Value Abnormality Reference (Units ) Status Magnesium 08/28/2024 10:23:51 1.8 1.5-2.6 (m g/dL) Final Performing Location [facility] - [address] [place] [address]
--- OUTSIDE RECORDS SUMMARY | 2024-09-25 23:33 | External Medical Summary | Summary of Care ---
Author Name Unknown Organization [facility] Address [address] [place] [address] Phone [phone] Care Team Providers Care Master Automotive Glass Technician Name Role Phone Sai Hurley MD Primary Care Provider +1- [phone] Reason for Visit * Reason Comments eRx-Medication Refill Encounter Details Date Type Department Care Team (Late st Contact Info) Description 04/29/2024 Refill [facility] [address] [place] [phone] Sai Hurley MD [address] [place], [place] [phone] Allergies No known active allergiesdocumented as of this encounter (statuses as of 04/30/2024) Medications Medication Sig Dispensed Refills Start Date [...] for Cough. 90 Capsule 1 2 Active Nitroglycerin 0.4 MG Sublingual Tablet Sublingual (Nitrostat) Place 1 Tablet under the tongue every 5 minutes as needed for Pain, Chest. up to 3 doses in 15 minutes 20 Tablet 3 Active Hydrocortisone (Perianal) 2.5 % External Cream (Proctozone-HC)Anastasia cations:External hemorrhoids ADMINISTER INTO THE RECTUM TWO TIMES A DAY 90 g 3 3 Active Albuterol Sulfate (2.5 MG/3ML) 0.083% Inhalation Nebulization Solution (Proventil)Indicati ons:Bronchitis, complicated Inhale 1 Vial via nebulizer every 4 hours as needed for Wheezing. 24 mL 3 3 Active Metoprolol Succinate ER 25 MG Oral Tablet Extended Release 24 Hour (toPROL XL) Take 1 Tablet by mouth in the morning. 90 Tablet 1 3 Active Atorvastatin Calcium 80 MG Oral Tablet (Lipitor) Take 1 Tablet by mouth every afternoon. 90 Tablet 3 4 Active Ipratropium-Albuter ol 0.5-2.5 (3) MG/3ML Inhalation Solution (Duoneb)Indications :COPD, group B, by GOLD 2017 classification ([facility]),Restrictive lung disease Inhale 3 mL by mouth every 6 hours as needed for Shortness of Breath. 120 mL 1 4 Active Montelukast Sodium 10 MG Oral Tablet (Singulair)Indicati ons:COPD, group B, by GOLD 2017 classification ([facility]),Restrictive lung disease Take 1 Tablet by mouth in the morning. (Mucus and cough). 30 Tablet 4 Active Azithromycin 250 MG Oral Tablet (Zithromax Z-Dhruv)Indications:C OPD, group B, by GOLD 2017 classification ([facility]),Restrictive lung disease Take two tablets by mouth on first day, then 1 tablet daily until gone 6 Tablet 4 Active Pantoprazole Sodium 40 MG Oral Tablet Delayed Release (Protonix) Take 1 Tablet by mouth in the morning. 90 Tablet 3 4 Active Clopidogrel Bisulfate 75 MG Oral Tablet (pLAVix) TAKE 1 TABLET IN THE MORNING 90 Tablet 3 4 Active Pantoprazole Sodium 40 MG Oral Tablet Delayed Release (Protonix) Take 1 tab by mouth daily 90 Tablet 3 3 04/30/20 24 Discontinued documented as of this encounter (statuses as of 04/30/2024) Active Problems Problem Noted Date Diagnosed Date [...] as of this encounter (statuses as of 04/30/2024) Resolved Problems Problem Noted Date Diagnosed Date [...] as of this encounter (statuses as of 04/30/2024) Immunizations Name Administration Dates Next Due COVID-19 mRNA, LNP-s, No Pre serve, 2-Dose Series ([employer]) 10/30/2021,02/16/2021,01/21/2021 COVID-19, LNP-s, No Preserve , Carroll-sucrose, Ages 12+ (Pfizer) 06/08/2022 Covid-19, Mrna, Lnp-s, Pf, B ivalent, 30 Mcg, IM, 12 yrs and above (Pfizer) 01/03/2023 Pneumococcal Conjugate Vacci ne, 20-valent ([id number]) 11/19/2022 Pneumococcal Polysaccharide PPV23 (Pneumovax) 11/19/2020(Deferred: Patient [...] money to get more. Never true 12/15/2022 Sex and Gender Information Value Date Recorded [...] encounter Miscellaneous Notes * Telephone Encounter - Sai Hurley MD - 04/30/2024 4:40 PM EDTSigned Prescriptions: Disp Refills Pantoprazole Sodium 40 MG Oral Tablet Tamela*90 Tab*3 Sig: Take 1 Tablet by mouth in the morning.Authorizing Provider: SAI HURLEY * Telephone Encounter - Rachel Christiansen [facility] - 04/30/2024 3:34 PM EDTPending Prescriptions: Disp Refills Pantoprazole Sodium 40 MG Oral Tablet Tamela*90 Tab*1 Sig: Take 1 Tablet by mouth in the morning. * Telephone Encounter - Rachel Christiansen [facility] - 04/30/2024 3:34 PM EDT Pharmacists cannot authorize refills for meds listed as "historical" in the chart. Please approve if appropriate. Pending Prescriptions: Disp Refills Pantoprazole Sodium 40 MG Oral Tablet Tamela*90 Tab*1 Sig: Take 1 Tablet by mouth in the morning. 03/21/2024 (in office), Visit date not found (telemedicine) 08/28/2024 If no future appointments scheduled, and last appointment is greater than a year ago, please schedule patient for a follow-up appointment Last date the medication was ordered: historical Pharmacy: [facility] [id number] Is this request for a controlled substance?No Urine Drug Screen:No results found for this or any previous visit. Patient Phone Numbers Labs: Lab Results Component Value Date/Time CREAT 1.1 02/03/2024 11:34 AM CREAT 1.3 (H) 11/19/2020 09:42 AM POTASSIUM 4.6 02/03/2024 11:34 AM POTASSIUM 4.9 11/19/2020 09:42 AM LDLCALC 75 08/23/2023 09:55 AM LDLCALC 86 11/07/2019 10:16 AM LDLDIRECT 105 11/19/2020 09:42 AM LDLDIRECT 102 05/06/2015 09:23 AM ALT 37 02/03/2024 11:34 AM ALT 21 11/19/2020 09:42 AM HGBA1C 6.3 (H) 02/03/2024 11:34 AM HGBA1C 6.2 (A) 09/23/2022 12:00 AM documented in this encounter Plan of Treatment Upcoming Encounters Date Type Department Care Team (Late st Contact Info) Description 05/16/2024 1:30 PM EDT Cardiac Studies [facility] [address] [facility] [address] 05/16/2024 3:00 PM EDT Office Visit Cardiology, [address] [place] [address] [facility]j [facility] [address] [facility] [address] 08/28/2024 9:00 AM EDT [address] [address] Sai Hurley MD [address] [facility] [place] [id number] 02/08/2025 12:00 PM EDT Imaging Radiology [address], [address] [place] [address] Health Maintenance Due Date Last Done Comments Alpha-1 Antitrypsin 1960 DTaP,Tdap,and Td Vaccines (1 - Tdap) 1961 Zoster Vaccines (1 of 2) 1992 COVID-19 Vaccine ( - 2022-24 season) 2023 01/03/2023, 06/08/2022, 10/30/2021, Additional history exists CKD PHOS USE SMARTSET 76368 08/03/2023 08/03/2022, 1 GFR 08/05/2024 02/03/2024, 100 01/2023, 12/20/2022, Additional history exists Albumin/Creatinine Ratio 08/23/2024 08/23/2023 CKD HGB USE SMARTSET 87987 02/02/202502/02, 08/23/2023, 12/20/2022, Additional history exists HbA1c 02/02/2025 02/03/2024, 100 01/2023, 09/23/2022, Additional history exists Depression Screening 03/21/2025 03/21/2024 O2 ASSESSMENT COMPLETED IN PAST YEAR FOR COPD 03/21/2025 03/21/2024 Pneumococcal Vaccine: 65+ Years Completed 11/19/2022 GARDASIL-HPV IMMUNIZATION SERIES Aged Out No longer eligible based on patient's age to complete this topic Hepatitis B Aged Out No longer eligi ble based on patient's age to complete this topic MENINGOCOCCAL (MENACTRA/MENVEO) Aged Out No longer eligible based on patient's age to complete this topic documented as of this encounter Medical Devices Implanted Type Area Certified Medical Dosimetrist Device Identifier Shelf Expiration Date Model / Serial / Lot Lens 25.0 Mx60e - [id number] - [id number] Implanted:Qty: 1 on 07/20/2018 by Ab Velazquez MD at OR [facility] Left: Eye BAUSCH [employer] LOMB 12/21/2019 [id number]-21.0 / [id number] / [id number] documented as of this encounter Advance Directives [...] and were consensually agreed upon. Care Teams Master Automotive Glass Technician Relationship Specialty Start Date End Date Sai Hurley MD [address] [place] [address] PCP - General 01/17/06 documented as of this encounter
--- OUTSIDE RECORDS SUMMARY | 2024-09-25 23:33 | External Medical Summary | Summary of Care ---
Author Name Unknown Organization [facility] Address [address] [place] [address] Phone [phone] Care Team Providers Care Special Needs Bus Driver Name Role Phone Sai Hurley MD Primary Care Provider [phone]- [phone] Reason for Visit * Reason Comments eRx-Medication Refill Encounter Details Date Type Department Care Team (Late st Contact Info) Description 04/29/2024 Refill [facility] [address] [place] [phone] Sai Hurley MD [address], [place] [id number] Allergies No known active allergiesdocumented as of [...] Active Hydrocortisone (Perianal) 2.5 % External Cream (Proctozone-HC)Naastasia cations:External hemorrhoids ADMINISTER INTO THE RECTUM TWO TIMES A DAY 90 g 3 3 Active Pantoprazole Sodium 40 MG Oral Tablet Delayed Release (Protonix) Take 1 tab by mouth daily 90 Tablet 3 3 Active Albuterol Sulfate (2.5 MG/3ML) [...] :COPD, group B, by GOLD 2017 classification ([facility]),Restrictive lung disease Inhale 3 mL by mouth every 6 hours as needed for Shortness of Breath. 120 mL 1 4 Active Montelukast Sodium 10 MG Oral Tablet (Singulair)Indicati ons:COPD, group B, by GOLD 2017 classification ([facility]),Restrictive lung disease Take 1 Tablet by mouth in the morning. (Mucus and cough). 30 Tablet 4 Active Azithromycin 250 MG Oral Tablet (Zithromax Z-Dhruv)Indications:C OPD, group B, by GOLD 2017 classification ([facility]),Restrictive lung disease Take two tablets by mouth on first day, then 1 tablet daily until gone 6 Tablet 4 Active Clopidogrel Bisulfate 75 MG Oral Tablet (pLAVix) TAKE 1 TABLET IN THE MORNING 90 Tablet 3 4 Active Clopidogrel Bisulfate 75 MG Oral Tablet (pLAVix) TAKE 1 TABLET IN THE MORNING 90 Tablet 1 3 04/30/20 24 Discontinued documented as of [...] mRNA, LNP-s, No Pre serve, 2-Dose Series ([employer]) 10/30/2021,02/16/2021,01/21/2021 COVID-19, LNP-s, No Preserve , [place]-sucrose, Ages 12+ (Pfizer) 06/08/2022 Covid-19, Mrna, Lnp-s, Pf, B ivalent, 30 Mcg, IM, 12 yrs and above (Pfizer) 01/03/2023 Pneumococcal Conjugate Vacci ne, 20-valent ([id number]) 11/19/2022 Pneumococcal Polysaccharide PPV23 (Pneumovax) 11/19/2020(Deferred: Patient [...] encounter Miscellaneous Notes * Telephone Encounter - Alexis Christiansen [facility] - 04/30/2024 3:35 PM EDTSigned Prescriptions: Disp Refills Clopidogrel Bisulfate 75 MG Oral Tablet (p*90 Tab*3 Sig: TAKE 1 TABLET IN THE MORNINGAuthorizing Provider: SAI HURLEY User: ALEXIS CHRISTIANSEN------- documented in this encounter Plan of Treatment Upcoming Encounters Date Type Department Care Team (Late st Contact Info) Description 05/16/2024 1:30 PM EDT Cardiac Studies Cardiac Studies, [address] [place] [address] 05/16/2024 3:00 PM EDT Office Visit Cardiology, [address] [place] [address] Sj Hansen MD [address] [place] [address] 08/28/2024 9:00 AM EDT Office Visit [facility] [address] [place] [phone] Sai Hurley MD [address] [place] [address] 02/08/2025 12:00 PM EDT Imaging Radiology [address], [address] [place] [address] Health Maintenance Due Date Last Done Comments Alpha-1 Antitrypsin 1958 DTaP,Tdap,and Td Vaccines (1 - Tdap) 1961 Zoster Vaccines (1 of 2) 1992 COVID-19 Vaccine (6 - season) 2023 01/03/2023, 06/08/2022, 10/30/2021, Additional history exists CKD PHOS USE SMARTSET 13648 08/03/2023 08/03/2022, 1 GFR 08/05/2024 02/03/2024, 100 01/2023, 12/20/2022, Additional history exists Albumin/Creatinine Ratio 08/23/2024 08/23/2023 CKD HGB USE SMARTSET 64326 02/02/202502/02, 08/23/2023, 12/20/2022, Additional history exists HbA1c [...] this encounter Medical Devices Implanted Type Area Glass Bulb Machine Adjuster Device Identifier Shelf Expiration Date Model / Serial / Lot Lens 25.0 Mx60e - [id number] - [id number] Implanted:Qty: 1 on 07/20/2018 by Ab Velazquez MD at OR [facility] Left: Eye [employer] 12/21/2019 [id number]-37.0 / [id number] / [id number] documented as of this encounter Advance Directives [...] and were consensually agreed upon. Care Teams Special Needs Bus Driver Relationship Specialty Start Date End Date Sai Hurley MD [address] [facility] [place] [address] PCP - General 01/17/06 documented as of this encounter
--- OUTSIDE RECORDS SUMMARY | 2024-09-25 23:33 | External Medical Summary | Summary of Care ---
Author Name Unknown Organization [facility] Address [address] [place] [address] Phone [phone] Care Team Providers Care Director Of Market Analysis Name Role Phone Sai Mason MD Primary Care Provider [phone]- [phone] Reason for Visit * Reason Comments Outpatient Testing Encounter Details Date Type Department Care Team (Late st Contact Info) Description 08/28/2024 10:20 AM EDT Laboratory Laboratory, [facility] [address] [place] [phone] [facility] [address] [place] [address], [place] [phone] Stage 3a chronic kidney disease (HCC); Prediabetes; Encounter for long-term (current) use of medications; Dyslipidemia, goal LDL below 130 Allergies No known active allergiesdocumented as of this encounter (statuses as of 08/28/2024) Medications Medication Sig Dispensed Refills Start Date [...] OPD, group B, by GOLD 2017 classification ([facility]),Restrictive lung disease Inhale 3 mL by mouth every 6 hours as needed for Shortness of Breath. 120 mL 1 03/21/2024 Active Montelukast Sodium 10 MG Oral Tablet (Singulair)Indication s:COPD, group B, by GOLD 2017 classification ([facility]),Restrictive lung disease Take 1 Tablet [...] as of this encounter (statuses as of 08/28/2024) Active Problems Problem Noted Date Diagnosed Date [...] as of this encounter (statuses as of 08/28/2024) Resolved Problems Problem Noted Date Diagnosed Date [...] as of this encounter (statuses as of 08/28/2024) Immunizations Name Administration Dates Next Due COVID-19 mRNA, LNP-s, No Pre serve, 2-Dose Series ([employer]) 10/30/2021,02/16/2021,01/21/2021 COVID-19, LNP-s, No Preserve , [place]-sucrose, Ages 12+ (Pfizer) 06/08/2022 Covid-19, Mrna, Lnp-s, Pf, B ivalent, 30 Mcg, IM, 12 yrs and above (Pfizer) 01/03/2023 Pneumococcal Conjugate Vacci ne, 20-valent ([id number]) 11/19/2022 Season Influenza, Quad, PF, Adjuvanted, 65+ [...] Description 02/08/2025 12:00 PM EDT Imaging Radiology [facility] [address] [place] [address] 03/05/2025 4:00 PM EDT Office Visit [facility] [address] [place] [address] Sai Mason MD [address] [place] [address] 05/15/2025 8:30 AM EDT Cardiac Studies Cardiac Studies, [address] [place] [address] 05/15/2025 9:30 AM EDT Office Visit Cardiology, [address] [place] [address] Sj Hansen MD [address] [place] [address] Pending Results Name Type Priority Associated Diagnoses Date /Time RENAL FUNCTION PANEL Lab Routine Stage 3a chronic kidney disease (HCC) 08/28/2024 10:23 AM EDT HEMOGLOBIN A1C Lab Routine Prediabetes 08/28/2024 10:23 AM EDT VITAMIN B12 Lab Routine Encounter for long-term (current) use of medications 08/28/2024 10:23 AM EDT MAGNESIUM Lab Routine Encounter for long-term (current) use of medications 08/28/2024 10:23 AM EDT LDL CHOLESTEROL (DIRECT MEASURE) Lab Routine Dyslipidemia, goal LDL below 130 08/28/2024 10:23 AM EDT Health Maintenance Due Date Last Done Comments Alpha-1 Antitrypsin 1958 Adult Wellness Visit 2008 CKD PHOS USE SMARTSET 64649 08/03/2023 08/03/2022, 1 GFR 08/05/2024 02/03/2024, 100 01/2023, 12/20/2022, Additional history exists Albumin/Creatinine Ratio 08/23/2024 08/23/2023 COVID-19 Vaccine ( season) 2024 01/03/2023, 06/08/2022, 10/30/2021, Additional history exists Postponed from 07/22/2024 (Patient Declined After Education) DTap/Tdap Vaccines (1 - Tdap) 09/29/2024 Postponed from 1961 (Insurance/Financial) Zoster Vaccines (1 of 2) 09/29/2024 Pos tponed from 1992 (Patient Declined After Education) CKD HGB USE SMARTSET 32587 02/02/202502/02, 08/23/2023, 12/20/2022, Additional history exists HbA1c [...] this encounter Medical Devices Implanted Type Area Industrial Engineering Technologist Device Identifier Shelf Expiration Date Model / Serial / Lot Lens 25.0 Mx60e - [id number] - [id number] Implanted:Qty: 1 on 07/20/2018 by Ab Velazquez MD at OR [facility] Left: Eye [employer] 12/21/2019 [id number] / [id number] / [id number] documented as of this encounter Visit Diagnoses Diagnosis Stage 3a chronic kidney disease (HCC) Prediabetes Other abnormal glucose Encounter for long-term (current) use of medications Encounter for long-term (current) use of other medications Dyslipidemia, goal LDL below 130 Other and unspecified hyperlipidemia documented in this encounter Advance Directives * [...] and were consensually agreed upon. Care Teams Director Of Market Analysis Relationship Specialty Start Date End Date Sai Mason MD [address] [facility] [place] [address] PCP - General 01/17/06 documented as of this encounter
--- OUTSIDE RECORDS SUMMARY | 2024-09-25 23:33 | External Medical Summary | Summary of Care ---
Author Name Unknown Organization [facility] Address [address] [place] [address] Phone [phone] Care Team Providers Care Sharepoint Solutions Architect Name Role Phone Sai Mason MD Primary Care Provider [phone] Reason for Visit * Reason Onset Date Comments Follow Up Return in [address] [place] [address] Medication Administration 08/28/2024 Flu an d/or Pneumo Inj Encounter Details Date Type Department Care Team (Latest Contact Info) Description 08/28/2024 9:00 AM EDT Office Visit [facility] [address] [place] [phone] Sai Mason MD [address], [place] [id number] HTN, goal below 140/90*; Risk and functional assessment; Stage 3a chronic kidney disease (HCC); Prediabetes; Dyslipidemia, goal LDL below 130; Encounter for long-term (current) use of medications; Need for prophylactic vaccination and inoculation against influenza; Chronic systolic congestive heart failure (HCC); 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 120 mL 1 03/21/2024 Active Montelukast Sodium 10 MG Oral Tablet (Singulair)Indicati ons:COPD, group B, by GOLD 2017 classification ([facility]),Restrictive lung disease Take 1 Tablet by mouth [...] 07/08/2024 Active Hydrocortisone (Perianal) 2.5 % External CreamIndications:Ex ternal hemorrhoids ADMINISTER INTO THE RECTUM TWO TIMES A DAY 90 g 3 08/16/2024 Active Benzonatate 100 MG Oral Capsule (Teshan Perlerica)Indications: Pneumonia due to infectious organism, unspecified laterality, unspecified part of lung Take 1 Capsule (100 mg) by mouth 3 times a day as needed for Cough. 90 Capsule 1 09/28/2022 Discontinue d(Medicatio n List Clean Up) Azithromycin 250 MG Oral Tablet (Zithromax Z-Dhruv)Indications:C OPD, group B, by GOLD 2017 classification (HCC),Restrictive lung disease Take two tablets by mouth on first day, then 1 tablet daily until gone 6 Tablet 03/21/2024 4 Discontinue d(Medicatio n List Clean Up) documented as of this encounter (statuses as [...] mRNA, LNP-s, No Pre serve, 2-Dose Series (Breath of Life) 10/30/2021,02/16/2021,01/21/2021 COVID-19, LNP-s, No Preserve , Carroll-sucrose, Ages 12+ (Pfizer) 06/08/2022 Covid-19, Mrna, Lnp-s, Pf, B ivalent, 30 Mcg, IM, 12 yrs and above (Pfizer) 01/03/2023 Pneumococcal Conjugate Vacci ne, 20-valent (Vvlxxhu25) 11/19/2022 Season Influenza, Quad, PF, Adjuvanted, 65+ Yrs, IM (FLUAD) 11/19/2020 Seasonal Influenza, High Dos e, Trivalent, PF, IM (Fluzone HD) 08/28/2024 Seasonal Influenza, Quadriva lent Hd (Fluzone Hd) 08/04/2023,08/03/2022,10/22/2021 documented as of this encounter Social History Tobacco Use Types Packs/Day Years Used Date Smoking Tobacco: Former Cigarettes 2017 Cigars Smokeless Tobacco: Never Tobacco Cessation:Counseling Given: Not Answered Comments:Smoked occasionally (a couple a week) for [...] on file documented as of this encounter Last Filed Vital Signs Vital Sign Reading Time Taken Comments Blood Pressure 118/72 08/28/2024 8:59 AM EDT Pulse 72 08/28/2024 8:59 AM EDT Temperature 36.2 C (97.1 F) 08/28/2024 8:59 AM ED T Respiratory Rate 18 08/28/2024 8:59 AM EDT Oxygen Saturation 94% 08/28/2024 8:59 AM EDT Inhaled Oxygen Concentration - - Weight 83.6 kg (184 lb 6.4 oz) 08/28/2024 8:59 A M EDT Height 170.2 cm (5' 7") 08/28/2024 8:59 AM EDT Body Mass Index 28.88 08/28/2024 8:59 AM EDT documented in this encounter Functional Status Functional Status Response [...] No 05/15/2021 documented as of this encounter Patient Instructions * Patient Instructions* Jaylyn Jones, RECLAMATION FURNACE OPERATOR - 08/28/2024 8:57 AM EDT Patient Instructions - Fall Prevention (This education is for all patients over 65 regardless of symptoms) Remember to take your current medications as prescribed. In order to prevent falls, you are encouraged to: Exercise Utilize assistive/adaptive devices Avoid multifocal lenses when walking Avoid hazards in home Maintain a regular toileting schedule Any questions please contact our office. Preventing Falls in the Home (This education is for all patients over 65 regardless of symptoms) As you get older, falls are more likely. Thats because your reaction time slows. Your muscles and joints may also get stiffer, making them less flexible. Illness, medications, and vision changes can also affect your balance. A fall could leave you unable to live on your own. To make your home safer, follow these tips: Floors Put nonskid pads under area rugs Remove throw rugs Replace worn floor coverings Tack carpets firmly to each step on carpeted stairs. Put nonskid strips on the edges of uncarpeted stairs Keep floors and stairs free of clutter and cords Arrange furniture so there are clear pathways Clean up any spills right away Bathrooms Install grab bars in the tub or shower Apply nonskid strips or put a nonskid rubber mat in the tub or shower Sit on a bath chair to bathe Use bathmats with nonskid backing Lighting Keep a flashlight in each room Put a nightlight along the pathway between the bedroom and the bathroom Bette Patient Education Copyright 2008 - 2010 Bette except where otherwise noted Preventing Falls: Exercises to Improve Balance, Flexibility, Strength, and Staying Power (This education is for all patients over 65 regardless of symptoms) Certain types of exercises may help make you less likely to fall. Try the ones below. Or do other exercises that your healthcare provider suggests. Depending on your health, you may need to start slowly. Dont let that stop you. Even small amounts of exercise can help you. Be sure to talk to yourhealthcare provider before starting any exercise program. Improve Balance Many types of exercise can help improve balance. Christos chi and yoga are good examples. Heres another one to try. You can do it anytime and almost anywhere. Stand next to a counter or solid support. Push yourself up onto your tiptoes. Hold for 5 seconds. If you start to lose your balance, hold on to the counter. Rest and repeat 5 times. Work up to holding for 20 to 30 seconds, if you can. Increase Flexibility Being more flexible makes it easier for you to move around safely. Try exercises like the seated hamstring stretch. Sit in a chair and put one foot on a stool. Straighten your leg and reach with both hands down either side of your leg. Reach as far down your leg as you can. Hold for about 20 seconds. Go back to the starting position. Then repeat 5 times. Switch legs. Build Strength Resistance exercises help build strength. You can do them without equipment. Or you can use weights, elastic bands, or special machines. One such exercise is called the biceps curl. You can hold a 1 pound weight or even a can of soup. Do this exercise at least 3 times a week. Strive for everyday. Sit up straight in a chair. Keep your elbow close to your body and your wrist straight. Bend your arm, moving your hand up to your shoulder. Then slowly lower your arm. Repeat 5 times. Switch to the other arm. Build Your Staying Power Aerobic exercises make your heart and lungs stronger so you can keep moving longer. Walking and swimming are two of the best types of exercises you can do. Using a stationary bike is great, too. Find an aerobic exercise that you enjoy. Start slowly and build up. Even 5 minutes is helpful. Aimfor a goal of 30 minutes, at least 3 times a week. You dont have to do 30 minutes in one session. Break it up and walk a little throughout the day. More Helpful Tips Start easy. Slowly work up to doing more. Talk with your healthcare provider about the best exercises for you. Call senior centers or health clubs about exercise programs. If needed, have a family member watch you walk every so often to check your stability. Exercise with a friend. Choose an activity you both enjoy. Try exercises that you can do anytime, anywhere. Here are two examples. Have someone with you when you first try these: Practice walking by placing one foot right in front of the other. Stand up and sit down 10 times. Repeat this throughout the day. Printed Piece Patient Education Copyright 2008 Printed Piece except where otherwise noted. Preventing Falls: Moving Safely Using a Cane or Walker (This education is for all patients over 65 regardless of symptoms) Keep the cane away from your feet so you dont trip. A walking aid, such as a cane or walker, can help you stay more independent and avoid falls. Remember to keep your walking aid within easy reach when youre in a chair or in bed. And learn how to use it safely so you dont injure yourself. Using a Cane If you have a stronger side, hold the cane on that side. Get your balance. Move the cane and your weaker leg forward. Support your weight on both the cane and your weaker side. Step with your stronger leg. Start again from step 1. If youre using a folding walker, be sure you know how to lock it open. Check that its locked open before each use. Using a Walker Roll the walker (or lift it, if youre using one without wheels) forward about 12 inches. Step forward with your weaker leg first. Use the walker to help keep your balance. Bring your other foot forward to the center of the walker. Start again from step 1. Helpful Tips Check with your healthcare provider about the right walking aid to use. Ask about a walker with a seat attached. Check the tips of your cane or walker to make sure they have nonskid covers. Move slowly from room to room. Dont green. Sit down to get dressed. Use a radha pack or backpack to keep your hands free. Get help for jobs that mean climbing, even on a stepstool. Printed Piece Patient Education Copyright 2008 - 2010 Printed Piece except where otherwise noted. Treating Urinary Incontinence in Men (This education is for all patients over 65 regardless of symptoms) You can't always control the release of urine. You may leak urine. Or you may not be able to hold your urine until you can get to a bathroom. This is called urinary incontinence. The problem can be managed. Talk to your doctor about your treatment options. Taking Medications Prescription medications may help you. They may: Help the sphincter to work better. (This is the muscle that closes to keep urine from leaking out of the bladder.) Help stop the bladder from niki too often to push urine out. Help the bladder muscles contract with more force. Help relax the sphincter muscle and allow urine to flow more freely. Making Changes to Your Routine Certain changes in your daily routine may help. These include: Avoiding caffeine and alcohol. Using timed voiding. This is following a schedule for drinking fluids and urinating. Doing Kegel exercises daily. These exercises involve tightening the muscles in your sphincter and around your bladder to help strengthen them. Your doctor can explain how to do them. Using a Catheter A catheter is a narrow tube that is inserted through the urethra into the bladder. It drains urine.A condom catheter covers the penis. It channels urine into a collection bag. It is worn most of thetime. Intermittent catheterization means inserting a catheter to drain the bladder, then removing it. This is done on a regular schedule. Having Surgery If other options don't work, surgery may be recommended. If surgery is an option, your healthcare provider can discuss it with you and explain its risks and benefits. Healing After Prostate Surgery Surgery on the prostate gland can cause incontinence. Most often, the incontinence is only for a short time. It clears up when healing is complete. Very rarely, prostate surgery can result in permanent incontinence. documented in this encounter Progress Notes * Sai Mason MD - 08/28/2024 10:17 AM EDT Subjective: Jt Little is a 83 year old male here today for Chief Complaint Patient presents with Follow Up Return in 6 months Medication Administration Flu and/or Pneumo Inj Patient presents for routine six-month return. Present with his today. Is agreeable to influenza vaccination. Is agreeable to updating labs. We talked about the availability of the shingles shot and consideration of a tetanus booster at a pharmacy. He does complain that his hands get cold regularly and he can even see paleness to his fingertips at times. States that this has been more noticeable since being on clopidogrel. Since our last visit, did see his training designer and is on yearly return. Things are stable with his aortic valve disease. Patient and had questions about whether he truly has been diagnosed with lung disease. We talked about his pulmonary function tests and CT scan. He does have mixed obstructive and restrictive issues on his PFTs. Last pulmonary note indicated he should be seen again in January. There is no appointment currently scheduled. Patient does not have issues with shortness of breath at baseline. Just develops wheeze with acute illnesses and flares. Past Medical History: Diagnosis Date Calculus of kidney COPD (chronic obstructive pulmonary disease) (HCC) Dyslipidemia, goal to be determined HTN, goal below 140/90 Past Surgical History: Procedure Laterality Date CORONARY ANGIOGRAPHY W/LEFT HEART CATH Left 05/18/2021 CORONARY ANGIOGRAPHY W/LEFT HEART CATH performed by Mame Michaels MD at [facility] CYSTO/URETERO, STONE REMOVE 2003 EGD, FLEXIBLE, DIAGNOSTIC N/A 12/02/2022 [facility], EGD, normal scope / no specimens collected / INJECTION OF EYE DRUG Right 06/07/2018 # 1 Avastin OD; Dr. Maxwell INJECTION OF EYE DRUG Right 07/13/2018 # 2 Avastin OD, INJECTION OF EYE DRUG Right 08/22/2018 # 3 Avastin OD, Dr. Maxwell INSERTION OF LENS PROSTHESIS Right 2012 LASERING OF SECONDARY CATARACT Right 07/12/2018 Dr. Ureña MISCELLANEOUS ORDER ([facility] ONLY) Right 06/07/2018-06/07/2019 AVASTIN CONSENT OD SIGNED; DR MAXWELL MISCELLANEOUS ORDER ([facility] ONLY) ACT 112 signed, 01/04/2019 REMOVE CATARACT, INSERT LENS PROSTH Left 07/20/2018 left EXTRACAPSULAR CATARACT REMOVAL WITH INTRAOCULAR LENS performed by Ab Velazquez MD at [facility] Review of patient's allergies indicates: No Known Allergies Current Outpatient Medications Medication Sig Dispense Refill Acetaminophen 500 MG Oral Tablet (Tylenol) Take 2 Tablets by mouth every 6 hours as needed. Nitroglycerin 0.4 MG Sublingual Tablet Sublingual (Nitrostat) Place 1 Tablet under the tongue every5 minutes as needed for Pain, Chest. up to 3 doses in 15 minutes 20 Tablet 0 Albuterol Sulfate (2.5 MG/3ML) 0.083% Inhalation Nebulization Solution (Proventil) Inhale 1 Vial via nebulizer every 4 hours as needed for Wheezing. 24 mL 3 Atorvastatin Calcium 80 MG Oral Tablet (Lipitor) Take 1 Tablet by mouth every afternoon. 90 Tablet 3 Ipratropium-Albuterol 0.5-2.5 (3) MG/3ML Inhalation Solution (Duoneb) Inhale 3 mL by mouth every 6 hours as needed for Shortness of Breath. 120 mL 1 Montelukast Sodium 10 MG Oral Tablet (Singulair) Take 1 Tablet by mouth in the morning. (Mucus and cough). 30 Tablet 0 Pantoprazole Sodium 40 MG Oral Tablet Delayed Release (Protonix) Take 1 Tablet by mouth in the morning. 90 Tablet 3 Clopidogrel Bisulfate 75 MG Oral Tablet (pLAVix) TAKE 1 TABLET IN THE MORNING 90 Tablet 3 Metoprolol Succinate ER 25 MG Oral Tablet Extended Release 24 Hour (toPROL XL) Take 1 Tablet by mouth in the morning. 90 Tablet 2 Hydrocortisone (Perianal) 2.5 % External Cream ADMINISTER INTO THE RECTUM TWO TIMES A DAY 90 g 3 No current facility-administered medications for this visit. Objective: BP 118/72 | Pulse 72 | Temp 36.2 C (97.1 F) (Tympanic) | Resp 18 | Ht 1.702 m (5' 7") | Wt 83.6 kg (184 lb 6.4 oz) | SpO2 94% | BMI 28.88 kg/m | BSA 1.99 m GEN: NAD NECK: Supple with no LAD, TM, JVD CHEST: CTA B - no current wheeze, rhonchi, rales CV: RRR, 3/6 systolic murmur ABD: Soft, NT/ND, No HSM, NABS EXT: No c,c,e Assessment and Plan: HTN, goal below 140/90 (Primary) -good control, continue current meds Risk and functional assessment Stage 3a chronic kidney disease (HCC) - ALBUMIN / CREATININE RATIO, URINE; Future; Expected date: 08/28/2024 - RENAL FUNCTION PANEL; Future; Expected date: 08/28/2024 -continue to monitor, hydrate, avoid NSAIDs Prediabetes - HEMOGLOBIN A1C; Future; Expected date: 08/28/2024 -continue to monitor Dyslipidemia, goal LDL below 130 - LDL CHOLESTEROL (DIRECT MEASURE); Future; Expected date: 08/28/2024 -continue atorvastatin at current dose Encounter for long-term (current) use of medications - VITAMIN B12; Future; Expected date: 08/28/2024 - MAGNESIUM; Future; Expected date: 08/28/2024 Need for prophylactic vaccination and inoculation against influenza - INFLUENZA VAC., TRIVALENT, HD, PF, 65 AND ABOVE, 0.5 ML IM (FLUZONE HD) Chronic systolic congestive heart failure (HCC) -follow up with Cardiology next summer as planned 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 If not, will offer an appointment. Moderate aortic stenosis -stable, follow up with Cardiology Raynaud's disease without gangrene -discussed potential use of a calcium channel radha. Have elected to hold off at this time. He can tolerate the symptoms. He will let us know of any worsening symptoms Follow Up: Return in about 6 months (around 02/26/2025) for recheck. | For: recheck 36 min with pt and documentation Sai Mason MD * Jaylyn Jones LPN - 08/28/2024 9:58 AM EDT PRE - ADMINISTRATION DOCUMENTATION Are you experiencing any cold symptoms or fever? No Have you had Guillain-Montclair Syndrome (an illness that causes paralysis) within the last 6 weeks? No Have you had the flu shot in the past? YES Have you ever had a reaction to the flu shot? No aJylyn Jones LPN, 08/28/2024 9:58 AM Immunization Administration Documentation Time Out Procedure Performed: Yes Patient Identified (Ask Name/Date of ): Yes Does the patient have a fever greater than 101 degrees today? No Patient allergic to latex? No VFC Stock: No Immunization(s) verified: Yes, Immunization Name: Flu, VIS Sheet(s) given: Yes Verified Side and Site: Yes Verified Shot(s) with Parent(s)/Patient: Yes documented in this encounter Nursing Notes * Jaylyn Jones LPN - 08/28/2024 8:58 AM EDT The patient has been properly identified by confirmation of name and date of . Chief Complaint Patient presents with Follow Up Return in 6 months Patient reports no major concerns today documented in this encounter Plan of Treatment Upcoming Encounters Date Type Department Care Team (Late st Contact Info) Description 02/08/2025 12:00 PM EDT Imaging Radiology [facility] [address] [address] 03/05/2025 4:00 PM EDT Office Visit [facility] [address] [place] [phone] Sai Mason MD [address] [place] [address] 05/15/2025 8:30 AM EDT Cardiac Studies Cardiac Studies, [address] [place] [address] 05/15/2025 9:30 AM EDT Office Visit Cardiology, [address] [address] Sj Hansen MD [address] [place], [place] [id number] Pending Results Name Type Priority Associated Diagnoses [...] LDL below 130 08/28/2024 10:23 AM EDT Scheduled Orders Name Type Priority Associated Diagnoses Orde r Schedule ALBUMIN / CREATININE RATIO, URINE Lab Routine Stage 3a chronic kidney disease (HCC) Expected: 08/28/2024, Expires: 08/28/2025 RENAL FUNCTION PANEL Lab Routine Stage 3a chronic kidney disease (HCC) Expected: 08/28/2024 (Approximate), Expires: 08/28/2025 HEMOGLOBIN A1C Lab Routine Prediabetes Expected: 08/28/2024 (Approximate), Expires: 08/28/2025 VITAMIN B12 Lab Routine Encounter for long-term (current) use of medications Expected: 08/28/2024 (Approximate), Expires: 08/28/2025 MAGNESIUM Lab Routine Encounter for long-term (current) use of medications Expected: 08/28/2024 (Approximate), Expires: 08/28/2025 LDL CHOLESTEROL (DIRECT MEASURE) Lab Routine Dyslipidemia, goal LDL below 130 Expected: 08/28/2024 (Approximate), Expires: 08/28/2025 Health Maintenance Due Date Last Done Comments Alpha-1 Antitrypsin 1960 Adult Wellness Visit 2008 CKD PHOS USE SMARTSET 90638 08/03/2023 08/03/2022, 1 GFR 08/05/2024 02/03/2024, 01/2023, 12/20/2022, Additional history exists Albumin/Creatinine Ratio 08/23/2024 08/23/2023 COVID-19 Vaccine ( season) 2024 01/03/2023, 06/08/2022, 10/30/2021, Additional history exists Postponed from 07/22/2024 (Patient Declined After Education) DTap/Tdap Vaccines (1 - Tdap) 09/29/2024 Postponed from 1961 (Insurance/Financial) Zoster Vaccines (1 of 2) 09/29/2024 Pos tponed from 1992 (Patient Declined After Education) CKD HGB USE SMARTSET 35260 02/02/202502/02, 08/23/2023, 12/20/2022, Additional history exists HbA1c [...] this encounter Medical Devices Implanted Type Area Outside Solar Sales Consultant Device Identifier Shelf Expiration Date Model / Serial / Lot Lens 25.0 [id number] - [id number] - [id number] Implanted:Qty: 1 on 07/20/2018 by Ab Velazquez MD at [facility] Left: Eye [employer] 12/21/2019 [id number] / [id number] / [id number] documented as of this encounter Visit Diagnoses Diagnosis HTN, goal below 140/90- Primary Unspecified essential hypertension Risk and functional assessment Screening for unspecified condition Stage 3a chronic kidney disease (HCC) Prediabetes Other abnormal glucose Dyslipidemia, goal LDL below 130 Other and unspecified hyperlipidemia Encounter for long-term (current) use of medications Encounter for long-term (current) use of other medications Need for prophylactic vaccination and inoculation against influenza Chronic systolic congestive heart failure (HCC) Chronic systolic heart failure 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 Care Teams Sharepoint Solutions Architect Relationship Specialty Start Date End Date Sai Mason MD [address] [place] [address] PCP - General 01/17/06 documented as of this encounter
--- OUTSIDE RECORDS SUMMARY | 2024-09-25 23:33 | External Medical Summary ---
Author Name Unknown Address Unknown Organization [id number]:[facility] [place] [facility] [place][note 2] [address] [place] [address] Laboratory Report Ordering Provider Test Date Status XAVI AVILA 08/28/2024 10:23:51 Final Observation Date Value Abnormality Reference (Units ) Status HbA1C 08/28/2024 10:23:51 6.1 Above high normal 4. 0-5.6 (%) Final The use of HbA1c to monitor glycemic status is based on normal hemoglobin and HbA composition. This test should not be used in patients with abnormal hemoglobin that affects the half life of the red blood cell or the in vivo glycation rates. Glucose, estimated average 08/28/2024 10:23:51 128 Above high normal <126 (mg/dL) Kenneth al Performing Location [facility] [place] [facility] [place][note 2] [address] [facility] [address] [facility] [address]
--- OUTSIDE RECORDS SUMMARY | 2024-09-25 23:33 | External Medical Summary | Summary of Care ---
Author Name Unknown Organization [facility] Address [address] [place] [address] Phone [phone] Care Team Providers Care Under Trimmer Name Role Phone Sai Mason MD Primary Care Provider [phone] Reason for Referral * Precert (Within 10 days (routine)) - Authorized Specialty Diagnoses / Procedures Referred By Lloyd peres Referred To Contact Cardiac Studies Diagnoses Moderate aortic stenosis Bicuspid aortic valve Procedures ECHO, COMPLETE (2D), TRANS-THORACIC Tonya Tariq CRNP [address] [place] [address] Referral ID Status Reason Start Date Expiration Date V isits Requested Visits Authorized [id number] Authorized Precert 04/21/2025 999 999 Reason for Visit * Reason Comments Follow Up Encounter Details Date Type Department Care Team (Late st Contact Info) Description 05/16/2024 3:00 PM EDT Office Visit [facility], [facility] [address] [facility] [address] Sj Hansne MD [address] [place] [address] Moderate aortic stenosis*; Bicuspid aortic valve Allergies No known active allergiesdocumented as of this encounter (statuses as of 05/16/2024) Medications Medication Sig Dispensed Refills Start Date End Date Status Acetaminophen 500 MG Oral Tablet (Tylenol) Take 2 Tablets by mouth every 6 hours as needed. Active Benzonatate 100 MG Oral Capsule (Tessalon Perles)Indications:P neumonia due to infectious organism, unspecified laterality, unspecified [...] 05/16/2024 Hydrocortisone (Perianal) 2.5 % External Cream (Proctozone-HC)Indic ations:External hemorrhoids ADMINISTER INTO THE RECTUM TWO TIMES A DAY 90 g 3 07/04/2023 Active Albuterol Sulfate (2.5 MG/3ML) 0.083% Inhalation Nebulization Solution (Proventil)Indicatio ns:Bronchitis, complicated Inhale 1 Vial via nebulizer every 4 hours as needed for Wheezing. 24 mL 3 09/26/2023 Active Metoprolol Succinate ER 25 MG Oral Tablet Extended Release 24 Hour (toPROL XL) Take 1 Tablet by mouth in the morning. 90 Tablet 1 11/15/2023 Active Atorvastatin Calcium 80 MG Oral Tablet (Lipitor) Take 1 Tablet by mouth every afternoon. 90 Tablet 3 12/19/2023 Active Ipratropium-Albutero l 0.5-2.5 (3) MG/3ML Inhalation Solution (Duoneb)Indications: COPD, group B, by GOLD 2017 classification ([facility]),Restrictive lung disease Inhale 3 mL by mouth every 6 hours as needed for Shortness of Breath. 120 mL 1 03/21/2024 Active Additional Information Patient not taking.Reported on 05/16/2024 Montelukast Sodium 10 MG Oral Tablet (Singulair)Indicatio ns:COPD, group B, by GOLD 2017 classification ([facility]),Restrictive lung disease Take 1 Tablet by mouth in the morning. (Mucus and cough). 30 Tablet 03/21/2024 Active Additional Information Patient not taking.Reported on 05/16/2024 Azithromycin 250 MG Oral Tablet (Zithromax Z-Dhruv)Indications:CO PD, group B, by GOLD 2017 classification (HCC),Restrictive [...] THE MORNING 90 Tablet 3 04/30/2024 Active Hospital, Clinic, or Other Facility Administered Medication Ordered Dose Route Frequency Start Date End Date Status perflutren lipid microsphere inj SUSP 1.956 mgIndications:Aortic valve stenosis, etiology of cardiac valve disease unspecified,Coronary artery disease involving [place] coronary artery of [place] heart without angina pectoris,Ischemic cardiomyopathy 1.956 mg IV ONCE PRN 05/16/2024 05/16/2024 Active documented as of this encounter (statuses as of 05/16/2024) Active Problems Problem Noted Date Diagnosed Date [...] as of this encounter (statuses as of 05/16/2024) Resolved Problems Problem Noted Date Diagnosed Date [...] 06/04/2010 HX OF CALCULUS OF KIDNEY(aka NEPHROLITHIASIS) 03/08/2004/22/2017 Dyslipidemia, goal to be determined 07/03/2004 10/23/2010 CALCULUS OF KIDNEY(aka NEPHROLITHIASIS) 07/03/2004 06/04/2010 documented as of this encounter (statuses as of 05/16/2024) Immunizations Name Administration Dates Next Due COVID-19 mRNA, LNP-s, No Pre serve, 2-Dose Series ([employer]) 10/30/2021,02/16/2021,01/21/2021 COVID-19, LNP-s, No Preserve , Carroll-sucrose, Ages 12+ (Pfizer) 06/08/2022 Covid-19, Mrna, Lnp-s, Pf, B ivalent, 30 Mcg, IM, 12 yrs and above (Pfizer) 01/03/2023 Pneumococcal Conjugate Vacci ne, 20-valent ([id number]) 11/19/2022 Pneumococcal Polysaccharide PPV23 (Pneumovax) 11/19/2020(Deferred: Patient [...] Sign Reading Time Taken Comments Blood Pressure 124/82 05/16/2024 2:36 PM EDT Pulse 84 05/16/2024 2:36 PM EDT Temperature - - Respiratory Rate - - Oxygen Saturation - - Inhaled Oxygen Concentration - - Weight 84.4 kg (186 lb) 05/16/2024 2:36 PM EDT Height - - Body Mass Index 29.13 02/09/2024 3:15 PM EDT documented in this encounter Functional Status [...] No 05/15/2021 documented as of this encounter Progress Notes * Sj Hansen MD - 05/16/2024 3:20 PM EDT I have reviewed the advanced practitioner's documentation on the date of service referenced in note, and I agree with, and take responsibility for the plan of care. 83 year old male with aortic stenosis. EF is 45%. Medically managed NSTEMI in April 2021. No symptoms Peak velocity is 385 cm/s See him back in April 2025 with echo. No indication for aortic valve intervention at this time. Sj Hansen MD MPH Interventional Cardiology Pager: [phone] 05/16/24 3:21 PM * Tonya Tariq CRNP - 05/16/2024 3:00 PM EDT Cardiology Valve Clinic Note 05/16/2024 Primary Home Therapy Clinician: Dr. Houston Cardiac Problems: 1.CAD -NSTEMI 04/2021, Medically Managed -Chronically occluded LCx with L-R collaterals 2.Ischemic CMP -EF 45% 08/17/2023 -EF 45% 07/08/2021 3.Moderate Aortic Stenosis, Bicuspid Aortic Valve 4.Dyslipidemia 5.Hypertension 6.CKD 3 7. COPD HPI: Jt Little is a 83 year old male being seen today in valve clinic for follow up of aortic stenosis. Last seen with the valve clinic on 08/17/2023 and was asymptomatic that time. Instructed to return in April 2024 with an echocardiogram. Here today accompanied by his . Echocardiogram completed prior to this visit. Endorses dizziness with position changes. No falls/syncope. Sometimes reports to his he feels "woozy" at [employer]. Naps daily, but this is not new. Sleeps well at night. Weight is down today from Marie. Patient denies abnormal bleeding. Denies any known complications with anesthesia. Upper dentures. Has 6 teeth on the bottom. Does not see the dentist routinely. Patient lives at home with his . Denies a decline in functional capacity. Denies tobacco, alcohol, and illicit drug use. REVIEW OF SYSTEMS: See HPI for pertinent positives. All others negative other than those noted in the HPI. CONSTITUTIONAL: No change in weight, No weakness, No fatigue and No fevers, No sweats or chills. PULMONARY: No cough, sputum, or hemoptysis, No wheezing, No shortness or breath and No recent change in breathing. CARDIOVASCULAR: No chest pain, No dyspnea on exertion, No edema, No palpitations and No syncope. GASTROINTESTINAL: No abdominal pain, No change in bowel habits, No significant heartburn, No nausea, No vomiting, No diarrhea, No constipation, No blood in stools or black tarry stools. No dysphagia. HEMATOLOGIC: No abnormal bleeding and No bruising. NEUROLOGICAL: Normal balance, No headaches and No weakness. Current Outpatient Medications Medication Sig Dispense Refill Hydrocortisone (Perianal) 2.5 % External Cream (Proctozone-HC) ADMINISTER INTO THE RECTUM TWO TIMESA DAY 90 g 3 Metoprolol Succinate ER 25 MG Oral Tablet Extended Release 24 Hour (toPROL XL) Take 1 Tablet by mouth in the morning. 90 Tablet 1 Atorvastatin Calcium 80 MG Oral Tablet (Lipitor) Take 1 Tablet by mouth every afternoon. 90 Tablet 3 Pantoprazole Sodium 40 MG Oral Tablet Delayed Release (Protonix) Take 1 Tablet by mouth in the morning. 90 Tablet 3 Clopidogrel Bisulfate 75 MG Oral Tablet (pLAVix) TAKE 1 TABLET IN THE MORNING 90 Tablet 3 Acetaminophen 500 MG Oral Tablet (Tylenol) Take 2 Tablets by mouth every 6 hours as needed. Benzonatate 100 MG Oral Capsule (Tessalon Perles) Take 1 Capsule (100 mg) by mouth 3 times a day asneeded for Cough. (Patient not taking: Reported on 05/16/2024) 90 Capsule 1 Nitroglycerin 0.4 MG Sublingual Tablet Sublingual (Nitrostat) Place 1 Tablet under the tongue every5 minutes as needed for Pain, Chest. up to 3 doses in 15 minutes (Patient not taking: Reported on 05/16/2024) 20 Tablet 0 Albuterol Sulfate (2.5 MG/3ML) 0.083% Inhalation Nebulization Solution (Proventil) Inhale 1 Vial via nebulizer every 4 hours as needed for Wheezing. 24 mL 3 Ipratropium-Albuterol 0.5-2.5 (3) MG/3ML Inhalation Solution (Duoneb) Inhale 3 mL by mouth every 6 hours as needed for Shortness of Breath. (Patient not taking: Reported on 05/16/2024) 120 mL 1 Montelukast Sodium 10 MG Oral Tablet (Singulair) Take 1 Tablet by mouth in the morning. (Mucus and cough). (Patient not taking: Reported on 05/16/2024) 30 Tablet 0 Azithromycin 250 MG Oral Tablet (Zithromax Z-Dhruv) Take two tablets by mouth on first day, then 1 tablet daily until gone (Patient not taking: Reported on 05/16/2024) 6 Tablet 0 Current Facility-Administered Medications Medication Dose Route Frequency Provider Last Rate Last Admin perflutren lipid microsphere inj SUSP 1.956 mg 1.956 mg Intravenous Once PRN Jeff Lockhart, DNP 1.956 mg at 05/16/24 1421 Review of patient's allergies indicates: No Known Allergies Past Medical History: Diagnosis Date Calculus of kidney COPD (chronic obstructive pulmonary disease) (HCC) Dyslipidemia, goal to be determined HTN, goal below 140/90 Past Surgical History: Procedure Laterality Date CORONARY ANGIOGRAPHY W/LEFT HEART CATH Left 05/18/2021 CORONARY ANGIOGRAPHY W/LEFT HEART CATH performed by Mame Michaels MD at [facility] CYSTO/URETERO, STONE REMOVE 2003 EGD, FLEXIBLE, DIAGNOSTIC N/A 12/02/2022 [facility], EGD, normal scope / no specimens collected / INJECTION OF EYE DRUG Right 06/07/2018 # 1 Avastin OD; Dr. Maxwell INJECTION OF EYE DRUG Right 07/13/2018 # 2 Avastin OD, INJECTION OF EYE DRUG Right 08/22/2018 # 3 Avastin OD, Dr. Maxwell INSERTION OF LENS PROSTHESIS Right 2012 LASERING OF SECONDARY CATARACT Right 07/12/2018 Dr. Ureña MISCELLANEOUS ORDER ([facility] ONLY) Right 06/07/2018-06/07/2019 AVASTIN CONSENT OD SIGNED; DR RIK ASIFCELLANEOUS ORDER ([facility] ONLY) ACT 112 signed, 01/04/2019 REMOVE CATARACT, INSERT LENS PROSTH Left 07/20/2018 left EXTRACAPSULAR CATARACT REMOVAL WITH INTRAOCULAR LENS performed by Ab Velazquez MD at OR [facility] Family History Problem Relation Name Age of Onset Other (Natural causes) Mother age 98 Heart attack Father Fatal [place] age 49 Heart Disorder Sister CABG 60's, age 71 No Known Problems Sister Heart Disorder Brother CABG 60's Heart attack Brother Alzheimer's disease Brother No Known Problems Brother Heart disease Brother Glaucoma Other denies family hx Eye Problems Other denies family hx of retinal disease Social History Socioeconomic History Marital status: Spouse name: Not on file Number of children: Not on file Years of education: Not on file Highest education level: Not on file Occupational History 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 No mold. Social Determinants of Health Financial Resource Strain: Not on file Food Insecurity: No Food Insecurity (12/15/2022) Hunger Vital Sign Worried About Running Out of Food in the Last Year: Never true Ran Out of Food in the Last Year: Never true Transportation Needs: Not on file Social Connections: Unknown (05/08/2024) Social Connections How often do you feel lonely or isolated from those around you? (Adult - for ages 18 years and over): Not on file Housing Stability: Not on file PHYSICAL EXAM: BP 124/82 | Pulse 84 | Wt 84.4 kg (186 lb) | BMI 29.13 kg/m | BSA 2 m Wt Readings from Last 3 Encounters: 05/16/24 84.4 kg (186 lb) 03/21/24 86.6 kg (191 lb) 02/09/24 86.6 kg (191 lb) General: No acute distress. A+Ox3. HEENT: Normocephalic. Atraumatic. PERRL. EOMI. Conjunctiva and sclera clear. NECK: No carotid bruits. No JVD. Carotid upstrokes are brisk. Heart: RRR. S1 and S2 noted. 1/6 systolic murmur. No rubs or gallops. PMI non displaced. Lungs: Clear to auscultation. No wheezes.No rhonchi. No rales. Abdomen: Normal bowel sounds. Soft. Nontender. No masses or organomegaly. No abdominal bruits. Extremities: No edema. No clubbing or cyanosis. Pulses: radial=2/4, posterior tibial=2/4, dorsalis pedis = 2/4. NEURO: No focal deficits. PSYCH: Appropriate affect and insight. DATA: Labs & Imaging Reviewed Below: Echocardiogram 05/16/2026 PENDING Echocardiogram 08/17/2023 The qualitative LV ejection fraction is 45-49% (mildly reduced). The wall thickness is mildly increased in segments with normal wall motion. There is a large sized apical, posterior, and lateral wall motion abnormality with hypokinesis to akinesis of the segments. Moderate to borderline severe aortic valve stenosis. Mild aortic valve regurgitation is present. Mild mitral regurgitation is present. Compared to prior study of 08/18/2022, there is no significant change. Ao V2 max: 368.4 cm/sec Ao mean P.0 mmHg VIRAJ(I,D): 1.0 cm2 Echo 07/08/2021 Intravenous access obtained in the dorsum right hand using #22 gauge device under aseptic techniquewith one attempt made. At conclusion of study, IV access discontinued with catheter removed intact.No bruising, bleeding or hematoma noted at site? sterile dressing applied. The examination is adequate to evaluate the referral indication. The left ventricular cavity size is normal. The wall thickness is normal in segments with normal wall motion. There is a moderate sized apical, posterior, and lateral wall motion abnormality with hypokinesis to akinesis of the segments. There is a moderate sized apical and anteroseptal wall motion abnormality with mild hypokinesis to akinesis of the segments. The qualitative LV ejection fraction is 45-49% (mildly reduced). The aortic valve is possibly bicuspid. The aortic valve is moderately calcified. The aortic valve opening is severely reduced. Moderate to borderline severe aortic stenosis is present Mild aortic valve regurgitation is present. Significant mitral regurgitation is absent. Ao V2 max: 343.3 cm/sec Ao max PG (full): 42.6 mmHg VIRAJ(I,D): 1.1 cm2 Echo 05/17/2021 The examination is limited quality but adequate for evaluation of the referral indication. There is a moderate sized inferior, posterior, and lateral wall motion abnormality with hypokinesisto akinesis of the segments. The left ventricular systolic function is mildly reduced. The qualitative LV ejection fraction is 40-44% (mildly reduced). Calculated LV ejection Fraction = 44% (bi-plane method of discs). The left ventricular diastolic function is mildly abnormal (grade I). The aortic valve is inadequately visualized, unable to accurately determine the number of leaflets.. The aortic valve is moderately calcified. Image and Doppler assessment of aortic stenosis severity is discordant: Moderate aortic stenosis issuspected. Mild aortic valve regurgitation is present. Mitral regurgitation is detected but not quantitated. Cardiac Catheterization 05/18/2021 [facility] * 100% CHASSIS DRIVER of LCx with fair left to left collaterals. * Couldn't perform selective engagement of RCA despite multiple catheter including JR4, 3DRC, MP 1, AR 1, AR 2 and AL 1. We used up to contrast limit for his kidney function. Therefore, cardiac catheterization was terminated. * Left femoral access s/p Manual hold. IMPRESSION/PLAN: 1. Moderate aortic stenosis 2. Bicuspid aortic valve -Asymptomatic Severe Aortic Stenosis. NYHA 2 -Return in 1 year with echocardiogram same day. Patient care was discussed/coordinated with Dr. Hansen. The patient agrees to the above plan and will call with additional questions or concerns. All questions were answered to the patients satisfaction. ER with all emergencies advised. ALBARO [facility], [address] [address] I spent a total of 40 minutes on the date of service in preparation, delivery, and documentation ofthe care provided to Jt Little excluding any time spent in the performance of separately billed services. This chart was completed in part utilizing [employer] Speech Voice Recognition Software. Grammatical errors, random word insertions, prounoun errors, and incomplete sentences are an occasional consequence of this system due to software limitations, ambient noise, and hardware issues. Any formal questions or concerns about the content, text, or information contained within the body of this dictation should be directly addressed to the provider for clarification. documented in this encounter Nursing Notes * Andrey Sullivan RN - 05/16/2024 2:35 PM EDT Examination Room: room 16 Name: Jt Little Date of : (1940). Reason for Visit: for follow up Interim Hospitalization(s): denies Problems/Concerns: denies Chest Pain/SOB: denies [facility] Discussed: Not applicable [facility] is a way you can talk to your provider online through e-mail. Would you like to sign up? I can activate it for you? ALREADY ACTIVE Patient was instructed to not get up on the exam table until directed and assisted by their provider; patient is to remain seated in the chair/ wheelchair/ exam table for fall prevention and safety reasons. Patient is aware to have assistance to step down off exam table with personnel. Patient voiced full comprehension of instructions. documented in this encounter Plan of Treatment Upcoming Encounters Date Type Department Care Team (Late st Contact Info) Description 08/28/2024 9:00 AM EDT Office Visit [facility] [address] [place] [address] Sai Mason MD [address] [place] [address] 02/08/2025 12:00 PM EDT Imaging Radiology [facility] 1st Floor, [place] [address] [facility] [place] [address] 05/15/2025 8:30 AM EDT Cardiac Studies Cardiac Studies, [address] [place] [address] 05/15/2025 9:30 AM EDT Office Visit Cardiology, [address] [place] [address] Sj Hansen MD [address] [facility] [place] [id number] Scheduled Orders Name Type Priority Associated Diagnoses Orde r Schedule ECHO, COMPLETE (2D), TRANS-THORACIC Echocardiology Routine Moderate aortic stenosis Bicuspid aortic valve Expected: 04/21/2025 (Approximate), Expires: 06/15/2026 Health Maintenance Due Date Last Done Comments Alpha-1 Antitrypsin 1960 DTaP,Tdap,and Td Vaccines (1 - Tdap) 1961 Zoster Vaccines (1 of 2) 1992 COVID-19 Vaccine ( - 2022- season) 2023 01/03/2023, 06/08/2022, 10/30/2021, Additional history exists CKD PHOS USE SMARTSET 69649 08/03/2023 08/03/2022, 1 GFR 08/05/2024 02/03/2024, 100 01/2023, 12/20/2022, Additional history exists Albumin/Creatinine Ratio 08/23/2024 08/23/2023 CKD HGB USE SMARTSET 05029 02/02/202502/02, 08/23/2023, 12/20/2022, Additional history exists HbA1c [...] this encounter Medical Devices Implanted Type Area Quality Control Manager Device Identifier Shelf Expiration Date Model / Serial / Lot Lens 25.0 [id number] - [id number] - [id number] Implanted:Qty: 1 on 07/20/2018 by Ab Velazquez MD at OR [facility] Left: Eye [employer]CH [employer] LOMB 12/21/2019 CL97N-99.0 / [id number] / [id number] documented as of this encounter Visit Diagnoses Diagnosis Moderate aortic stenosis- Primary Aortic valve disorders Bicuspid aortic valve Congenital insufficiency of aortic valve documented in this encounter Advance Directives * [...] and were consensually agreed upon. Care Teams Under Trimmer Relationship Specialty Start Date End Date Sai Mason MD [address] [facility] [place] [address] PCP - General 01/17/06 documented as of this encounter
--- OUTSIDE RECORDS SUMMARY | 2024-09-25 23:33 | External Medical Summary ---
Author Name Unknown Address Unknown Organization [id number]:[facility] [place] [facility] [address] [place] [address] Laboratory Report Ordering Provider Test Date Status XAVI AVILA 08/28/2024 10:23:51 Final Observation Date Value Abnormality Reference (Units ) Status BUN 08/28/2024 10:23:51 22 Above high normal 6-20 (mg/dL) Final Creatinine 08/28/2024 10:23:51 1.0 0.6-1.2 (mg/dL) Final Glomerular filtration rate/1.73 sq M.predicted [Volume Rate/Area] in Serum, Plasma or Blood by Creatinine-based formula (CKD-EPI) 08/28/2024 10:23:51 78 >=60 (mL/min) Final eGFR is calculated based on the CKD-EPI 2020 equation. Sodium 08/28/2024 10:23:51 141 135-146 (m mol/L) Final Potassium 08/28/2024 10:23:51 4.3 3.5-5.1 (m mol/L) Final Cl 08/28/2024 10:23:51 105 98-107 (mm ol/L) Final CO2 08/28/2024 10:23:51 26 22-32 (mmo l/L) Final Anion gap 08/28/2024 10:23:51 10 7-15 (mmol /L) Final Glucose 08/28/2024 10:23:51 120 70-120 (mg /dL) Final Calcium 08/28/2024 10:23:51 8.5 8.4-10.2 ( mg/dL) Final Albumin 08/28/2024 10:23:51 4.1 3.8-5.0 (g /dL) Final Phosphate 08/28/2024 10:23:51 3.3 2.5-4.8 (m g/dL) Final Performing Location [facility] [place] [address] [place] [address]
[2024-09-26 02:24] LABS: Hematocrit (blood only) 30.3 % (42.0-52.0); Hemoglobin 9.9 g/dl (14.0-18.0); Mean Corpuscular Hemoglobin 30.4 pg (25.0-34.0); Mean Corpuscular Hgb Conc 32.7 g/dL (32.0-36.0); Mean Corpuscular Volume 92.9 fL (80.0-100.0); Mean Platelet Volume 11.1 fL (9.4-12.4); Platelet Count 114 K/uL (130-400); RDW Coefficient of Variation 14.4 % (11.5-14.5); RDW Standard Deviation 49.1 fL (36.4-46.3); Red Blood Count 3.26 M/uL (4.70-6.10); White Blood Count 3.38 K/ul (4.8-10.8)
[2024-09-26 02:36] LABS: Calcium 8.7 mg/dl (8.6-10.3); Chol HDL Ratio 5.3 (0-5); Creatinine Clr Calc Pharmacy 50.3 ml/min; Potassium 4.7 mmol/L (3.5-5.1)
[2024-09-26 03:20] VITALS: O2SAT 92
[2024-09-26 07:31] VITALS: RESP 18
[2024-09-26 07:33] LABS: Estimated Average Glucose 134 mg/dl; Hemoglobin A1C 6.3 % (4.5-5.6)
[2024-09-26] MEDS: METOPROLOL SUCC 25MG EXT REL TAB PO SCH (08:02)
[2024-09-26] MEDS: PANTOprazole 40 MG TAB PO SCH (08:02)
[2024-09-26] MEDS: CLOPIDOGREL BISULFATE 75 MG TAB PO SCH (08:02)
--- NOTE | 2024-09-26 08:30 | Electrocardiogram Report ---
Test Reason : Blood Pressure : */* mmHG Vent. Rate : 73 BPM Atrial Rate : 73 BPM P-R Int : 206 ms QRS Dur : 98 ms QT Int : 394 ms P-R-T Axes : 44 64 142 degrees QTcB Int : 434 ms Normal sinus rhythm T wave abnormality, consider lateral ischemia Abnormal ECG When compared with ECG of 01-Oct-2023 04:25, No significant change was found Confirmed by Damian Murillo ([id number]) on 09/25/2024 4:08:29 PM Referred By: REFERRED SELF Confirmed By: Damian Murillo
[2024-09-26 10:37] VITALS: PULSE 76; TEMP 97.5
[2024-09-26 12:47] VITALS: BP 127/79
--- NOTE | 2024-09-26 14:06 | Discharge Summary ---
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 Pain lasted approximately 3-5 minutes. EMS was called and by the time they arrived, pain had resolved. Has not recurred during time in the emergency room. Denies any chest pain, dyspnea on exertion, palpitations, nausea or vomiting. is concerned due to patient's complex cardiac history with NSTEMI in 2020, medically managed. Noted to have chronically occluded left circumflex with collaterals. 2D echo from April 2024 with mildly reduced EF of 45-49%, grade 1 diastolic dysfunction, moderate to borderline severe aortic valve stenosis, moderate aortic valve regurgitation. Follows with Dr. Hansen in [place]. Currently asymptomatic. No F/C, lightheadedness, headache, CP, SOB, NV, abd pain, dysuria, diarrhea or constipation. Received aspirin en route. is concerned with slight decline over past few months. 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 Not comfortable with patient returning home until he can be observed overnight. Admission Exam Per Admitting Provider General Appearance: WD/WN, vitals as above, NAD, sitting up in bed, pleasant, conversing easily Head: normocephalic, atraumatic Eyes: normal inspection, PERRL, conjunctivae normal, anicteric sclerae ENT: external ear and nose normal, oropharynx with dry mucous membranes Neck: normal visual inspection, trachea midline, no thyromegaly Respiratory: normal respiratory effort, diminished breath sounds bilaterally. No accessory muscle use Cardiovascular: regular rate, rhythm, + PERLITA, normal peripheral pulses, no BLE edema. Vessels: no JVD Chest: normal inspection of chest Abdomen/GI: normal bowel sounds, soft, nontender, no hepatosplenomegaly Extremities/Musculoskeletal: no cyanosis or clubbing, extremities motor strength 5/5 Neurologic: PERRL, EOMI, accommodation nl, no face palsy, no dysarthria, CN's II-XI intact bilaterally and moves all extremities Psychiatric: A+Ox3, euthymic affect Skin: no rashes, normal color, warm/dry Principal Diagnosis Left arm pain, ACS ruled out Discharge Exam Constitutional: WD/WN, vitals as above, NAD, sitting up in bed, pleasant, conversing easily Respiratory: normal respiratory effort, lungs clear to auscultation, no wheeze, rales, rhonchi. Normal insp/exp effort, no accessory muscle use Cardiovascular: RRR, no murmur, no edema Vessels: no JVD or carotid bruit Chest: normal inspection of chest Abdomen: normal bowel sounds, soft, nontender, no hepatosplenomegaly Musculoskeletal: no cyanosis or clubbing, extremities motor strength 5/5 Skin: no rashes, warm and dry normal turgor Neurologic: PERRL, EOMI, accommodation nl, no face palsy, no dysarthria CN's II- XI intact bilaterally and moves all extremities Psychiatric: A+Ox3, euthymic affect Discharge Data Allergies Allergy/AdvReac Type Severity Reaction Status Date / Time No Known Allergies Allergy Unknown Verified 09/25/24 16:50 Consultations 09/25/24 16:50 ED Decision to Admit Stat Hospital Course (1) Arm pain, left: (2) CAD (coronary artery disease): (3) Ischemic cardiomyopathy: (4) Moderate to severe aortic stenosis: (5) HTN (hypertension) with goal to be determined: Plan Patient is an 83-year-old male with PMH of moderate-severe aortic stenosis, history of NSTEMI in 2020 (medically managed), history of chronically occluded left circumflex with collaterals, chronic systolic congestive heart failure, dyslipidemia, COPD, hypertension, prediabetes, CKD 3 and other medical problems listed below who presents with left arm pain. He denied chest pain or discomfort. Left arm pain has resolved since arrival EKG without acute ST changes, HS trop negative x 2, CXR with no acute cardiopulmonary findings Doubt ACS, likely MSK as pain occurred while driving and has since resolved Patient was monitored overnight for recurrence of pain. He didn't have any chest/arm pain or discomfort. He underwent echocardiogram which showed slightly improved left ventricular ejection fraction compared to his echo from April 2024. Patient was discharged home with instructions to follow-up with PCP. No changes to his medication return. Total Time Total Time Spent Total Time Spent (In Minutes): 45 Total Time Includes: Examination of the Patient, Discharge Planning, Medication Reconciliation, Communication With Other Providers and Other Discharge Plan Discharge Items Patient Disposition: Home - Self-Care Reason For Visit: L ARM PAIN, ACS RULE OUT Discharge Diagnosis: Left arm pain, ACS ruled out Activity: Resume your previous activity Non-emergency contact: Primary Care Provider Call non-emergency contact if: you have any medication questions and your symptoms worsen Follow-up/Referrals: Sai Mason MD [Primary Care Provider] - (Date & Time 10/01/2024 11:00 AM Provider Sai Mason MD Department [facility] ) Diet: Regular Addtl Attending Provider Instructions: You were admitted to the hospital due to left arm pain. You underwent echo cardiogram which looked at your heart function. The echocardiogram showed slightly improved heart function compared to your echocardiogram from April. Please continue to take your medications as prescribed. Please follow-up with your primary care doctor and cardiology as scheduled. Pending Studies at Discharge: No Stand-Alone Forms: My [facility] Spot Labs, Smoking Cessation Medications and DC Order Prescriptions: Continued clopidogrel 75 mg tablet 75 mg PO DAILY nitroglycerin 0.4 mg tablet, sublingual 0.4 mg sublingual UD PRN (Reason: Chest Pain) Rx Instructions: Take one nitro every 5 minutes up to three doses as needed for chest pain metoprolol succinate 25 mg tablet extended release 24 hr 25 mg PO QAM atorvastatin 80 mg tablet 80 mg PO QPM hydrocortisone 2.5 % cream with perineal applicator 1 applic MD BID PRN (Reason: irritation) pantoprazole 40 mg tablet,delayed release (DR/EC) 40 mg PO QAM acetaminophen [Tylenol Extra Strength] 500 mg Tablet 1,000 mg PO Q6H PRN (Reason: Pain) ipratropium-albuterol 0.5 mg-3 mg(2.5 mg base)/3 mL Solution For Nebulization 3 ml NEB Q6H PRN (Reason: sob/wheezing) Qty: 90 0RF albuterol sulfate 2.5 mg /3 mL (0.083 %) solution for nebulization 2.5 mg continuous nebulization Q4 PRN (Reason: Wheezing) Discharge Orders: Discharge Order (Routine); Ordered 09/26/24 Ordered By: Kendell Amos/Other Patient Handouts: A1C Admission Data Admit Date/Time: 09/25/24 17:34 Attending Provider: Kendell Faye Admit Provider: Lane Rockwell Primary Care Provider: Sai Mason Other Providers: Lane Rockwell Other Interventions: Discharge Summary Assessment (RN) Last Done: 09/26/24 12:47
--- NOTE | 2024-09-26 15:31 | Electrocardiogram Report ---
Test Reason : Blood Pressure : */* mmHG Vent. Rate : 70 BPM Atrial Rate : 70 BPM P-R Int : 206 ms QRS Dur : 100 ms QT Int : 396 ms P-R-T Axes : 43 60 127 degrees QTcB Int : 427 ms Normal sinus rhythm Nonspecific T wave abnormality Abnormal ECG When compared with ECG of 25-Sep-2024 11:38, Nonspecific T wave abnormality, improved in Inferior leads Confirmed by Damian Murillo ([id number]) on 09/26/2024 3:31:22 PM Referred By: REFERRED SELF Confirmed By: Damian Murillo
== END 2024-09-26 13:00 | disposition home or self-care (01) ==
LOC: ED 11:35 → 2S 11:35 → SUATTDRO 17:34 → 2S 19:15

== ENCOUNTER 2024-11-29 00:03 | Observation (INO) ==
--- NOTE | 2024-11-29 00:17 | Emergency Department Note ---
History of Present Illness General Chief complaint: Shortness of Breath/Dyspnea Stated complaint: SHORTNESS OF BREATH Time Seen by Provider: 11/29/24 00:06 History of Present Illness This is an 84-year-old male with PMH of moderate-severe aortic stenosis, history of NSTEMI in 2020 (medically managed), history of chronically occluded left circumflex with collaterals, chronic systolic congestive heart failure, dyslipidemia, COPD, hypertension, prediabetes, CKD 3 presents ER complaining of flulike illness for the past week. The family doctor placed him on steroids and a Z-Dhruv. Symptoms of gotten worse. EMS states his sats are in the high 80s and placed him on nasal cannula which improved. He did uses his nebulizer this morning. Patient denies abdominal pain, vomiting, diarrhea. Home Medications Medication Instructions Recorded Confirmed Type acetaminophen 500 mg tablet 1,000 mg PO Q6H PRN Pain 10/10/21 11/29/24 History (Tylenol Extra Strength) clopidogrel 75 mg tablet 75 mg PO DAILY 09/17/22 11/29/24 History metoprolol succinate 25 mg 25 mg PO QAM 09/17/22 11/29/24 History tablet,extended release 24 hr nitroglycerin 0.4 mg sublingual 0.4 mg sublingual UD PRN Chest Pain 09/17/22 11/29/24 History tablet ipratropium 0.5 mg-albuterol 3 mg 3 ml NEB Q6H PRN sob/wheezing #90 09/24/22 11/29/24 Rx (2.5 mg base)/3 mL nebulization mL soln atorvastatin 80 mg tablet 80 mg PO QPM 11/06/22 11/29/24 History hydrocortisone 2.5 % topical cream 1 applic NV BID PRN irritation 11/30/22 11/29/24 History with perineal applicator pantoprazole 40 mg tablet,delayed 40 mg PO QAM 09/20/23 11/29/24 History release albuterol sulfate 2.5 mg/3 mL 2.5 mg continuous nebulization Q4 09/25/24 11/29/24 History (0.083 %) solution for nebulization PRN Wheezing benzonatate 100 mg capsule 100 mg PO TID PRN Cough 11/29/24 11/29/24 History Allergies Allergy/AdvReac Type Severity Reaction Status Date / Time No Known Allergies Allergy Unknown Verified 09/25/24 16:50 Past Med/Surg History Problem List (Updated 11/29/24 @ 02:54 by Coby Brooks PA-C) COVID-19 (Acute) Acute exacerbation of chronic obstructive airways disease (Acute) Community acquired pneumonia (Acute) Arm pain, left (Acute) Ischemic cardiomyopathy CAD (coronary artery disease) Non-ST elevation (NSTEMI) myocardial infarction 2020 Medical History (Updated 11/29/24 @ 02:54 by Coby Brooks PA-C) Acute kidney injury superimposed on chronic kidney disease Moderate to severe aortic stenosis Dyslipidemia HTN (hypertension) with goal to be determined CKD (chronic kidney disease), stage III Surgical History History of cataract surgery S/P cardiac catheterization H/O lithotripsy Family History Sister Heart disease Brother Heart disease Social History Smoking Status: Never smoker Tobacco Type: Cigars Second Hand Exposure: No; Do You Dip or Chew Tobacco: No; Hx Alcohol Use: Yes Alcohol type: other Hx Substance Use: No Preferred Language: Italian Communication Ability: Effective Communication Ability Comment: [facility] [employer] Cig[employer] Roller Machine Required: No Beliefs That Will Affect Care: None marital status: Current Living Situation: Spouse Current Living Situation Comment: lives at home with Feels Safe at Home: Yes Assistive Devices: None Review of Systems A total of 10 systems reviewed and were otherwise negative Physical Exam Vital Signs Vital Signs - 24 hr 11/29/24 00:16 11/29/24 00:16 11/29/24 00:16 Temperature 36.8 C Temperature Source Oral Pulse Rate 105 H Pulse Rate [Right Finger] Pulse Rhythm Regular Pulse Strength Normal Respiratory Rate 18 Respiratory Effort / Characteristics Non-Labored Spontaneous Non-Labored Spontaneous Respiratory Depth Normal Normal Respiratory Pattern Regular Regular Blood Pressure 157/89 H Blood Pressure [Right Arm] Blood Pressure Mean 111 Blood Pressure Mean [Right Arm] Blood Pressure Position Sitting Pulse Oximetry 92 92 Oxygen Delivery Method Room Air Room Air Oxygen Flow Rate 0 Sepsis Recent Fever Within 48 Hours No Sepsis New/Unexplained Change in Mental Status No Sepsis Action Taken by Nursing No Action Required 11/29/24 00:16 11/29/24 01:35 Temperature Temperature Source Pulse Rate 98 H Pulse Rate [Right Finger] 93 H Pulse Rhythm Regular Pulse Strength Respiratory Rate 18 33 H Respiratory Effort / Characteristics Non-Labored Spontaneous Respiratory Depth Normal Respiratory Pattern Blood Pressure Blood Pressure [Right Arm] 116/70 Blood Pressure Mean Blood Pressure Mean [Right Arm] 85 Blood Pressure Position Pulse Oximetry 94 93 Oxygen Delivery Method Room Air Room Air Oxygen Flow Rate Sepsis Recent Fever Within 48 Hours Sepsis New/Unexplained Change in Mental Status Sepsis Action Taken by Nursing VITALS: Vitals are noted on the nurse's note and reviewed by myself. Vital signs oxygen was 90 and patient was placed on nasal cannula and improved. GENERAL: Elderly male mildly ill-appearing speaking in full sentences SKIN: The skin was without rashes, erythema, or bruising. There is no tenting of the skin. Capillary reflex less than 2 seconds. HEAD: Normocephalic atraumatic. EARS: External auditory canals clear EYES: Pupils equal round and reactive to light and accommodation. Conjunctivae without injection, sclerae without icterus. Extraocular movements intact. NOSE: Patent, no discharge. MOUTH: Mucous membranes moist. Pharynx without erythema or exudate. Uvula midline. Airway patent. Tongue does not deviate. NECK: Supple without nuchal rigidity. No lymphadenopathy. No thyromegaly. Cervical spine is nontender. No JVD. HEART: Regular rate and rhythm LUNGS: Diffuse inspiratory and end expiratory wheezes. No retractions or accessory muscle use. ABDOMEN: Positive bowel sounds x 4. Normal tympanic percussion. Soft, nontender, without masses or organomegaly. Dubon sign negative. No guarding or rebound tenderness. No CVA tenderness MUSCULOSKELETAL: No muscle atrophy, erythema, noted. NEURO: Patient was alert and oriented to person place and time. Normal sensation to light and sharp touch. No focal neurological deficits. Course Administered Medications Discontinued Medications Acetaminophen (Acetaminophen 500 Mg Tab) 1,000 mg PO NOW STA Stop: 11/29/24 02:00 Last Admin: 11/29/24 02:10 Dose: 1,000 mg Documented By: JEEVAN Albuterol (Albut/Ipratrop 3mg/0.5mg Neb 3 Ml Vial) 3 ml NEB NOW STA; Protocol Stop: 11/29/24 00:17 Last Admin: 11/29/24 00:54 Dose: 3 ml Documented By: JEEVAN Piperacillin Sod/Tazobactam Sod (Zosyn) 4.5 gm in 100 mls @ 200 mls/hr IV NOW ONE; Protocol Stop: 11/29/24 01:13 Last Infusion: 11/29/24 01:37 Dose: Infused Documented By: Admin: 11/29/24 00:55 Dose: 200 mls/hr Documented By: JEEVAN Sodium Chloride (Nss) 500 mls @ 999 mls/hr IV .Q31M ONE Stop: 11/29/24 01:31 Last Admin: 11/29/24 01:36 Dose: 999 mls/hr Documented By: LISA Methylprednisolone (Methylprednisolone 125 Mg/2 Ml Vial) 125 mg IV NOW STA Stop: 11/29/24 00:17 Last Admin: 11/29/24 00:55 Dose: 125 mg Documented By: JEEVAN Medical Decision Making Medical Records Attestation: I reviewed the patient's medical records. Home Medications Current Medication List: was personally reviewed by me Laboratory Data Attestation: I reviewed the patient's lab results. 11/29/24 00:40 11/29/24 00:40 Lab Results 11/29/24 11/29/24 11/29/24 Range/Units 00:39 00:40 00:56 WBC 9.18 (4.8-10.8) K/ul RBC 3.42 L (4.70-6.10) M/uL Hgb 9.9 L (14.0-18.0) g/dl Hct 30.9 L (42.0-52.0) % MCV 90.4 (80.0-100.0) fL MCH 28.9 (25.0-34.0) pg MCHC 32.0 (32.0-36.0) g/dL RDW Std Deviation 49.8 H (36.4-46.3) fL RDW Coeff of Kaiden 15.2 H (11.5-14.5) % Plt Count 156 (130-400) K/uL MPV 11.2 (9.4-12.4) fL Immature Gran % (Auto) 0.7 % Neut % (Auto) 89.6 % Lymph % (Auto) 6.0 % Blount % (Auto) 3.6 % Eos % (Auto) 0.0 % Baso % (Auto) 0.1 % Neut # (Auto) 8.23 H (1.40-6.50) K/uL Lymph # (Auto) 0.55 L (1.20-3.40) K/uL Blount # (Auto) 0.33 (0.11-0.59) K/uL Eos # (Auto) 0.00 (0.00-0.50) K/uL Baso # (Auto) 0.01 (0.00-0.20) K/uL Immature Gran # (Auto) 0.06 (0.01-0.20) K/uL VBG pH 7.46 H (7.36-7.41) VBG pCO2 40 (38-50) mmHg VBG pO2 44 mmHg VBG HCO3 28 mmol/L VBG O2 Saturation 67.4 % VBG Base Excess 4.2 mEq/L Sodium 141 (136-145) mmol/L Potassium 4.7 (3.5-5.1) mmol/L Chloride 105 (98-107) mmol/L Carbon Dioxide 30 (21-32) mmol/L Anion Gap 6 (3-11) BUN 30 H (6-23) mg/dl Creatinine 1.19 (0.6-1.4) mg/dl Est Cr Clr Drug Dosing 52.1 ml/min eGFR 60.99 BUN/Creatinine Ratio 25.2 H (10-20) Glucose 136 H (70-99(Fasting)) mg/dl Lactate 2.1 H* (0.4-2.0) mmol/L Calcium 8.8 (8.6-10.3) mg/dl Magnesium 1.9 (1.7-2.4) mg/dl Total Bilirubin 0.6 (0.2-1.0) mg/dl Direct Bilirubin 0.1 (0-0.2) mg/dl AST 55 H (13-39) U/L ALT 51 (7-52) U/L Alkaline Phosphatase 154 H (34-104) U/L Troponin I High Sens 22.6 H (0-20) pg/ml B-Natriuretic Peptide 436 H (0-100) pg/ml Total Protein 7.8 (6.0-8.3) gm/dl Albumin 4.3 (3.4-5.0) gm/dl Procalcitonin 0.15 (0-0.5) ng/ml Urine Color Yellow Urine Appearance Clear (Clear) Urine pH 7.0 (4.5-7.5) Ur Specific [place] 1.017 (1.000-1.030) Urine Protein 1+ H (Negative) Urine Glucose (UA) Negative (Negative) Urine Ketones Negative (Negative) Urine Blood Negative (Negative) Urine Nitrite Negative (Negative) Urine Bilirubin Negative (Negative) Urine Urobilinogen Negative (Negative) Ur Leukocyte Esterase Negative (Negative) Urine WBC (Auto) 0-5 (0-5) /hpf Urine RBC (Auto) 0-2 (0-2) /hpf U Hyaline Cast (Auto) 0-2 (0-2) /lpf U Epithel Cells (Auto) 0-2 (0-2) /hpf Urine Bacteria (Auto) None Seen (None Seen) Adenovirus (PCR) Not Detected (NotDetected) B. pertussis DNA (PCR) Not Detected (NotDetected) B.parapertussis DNA PCR Not Detected (NotDetected) C. pneumoniae DNA (PCR) Not Detected (NotDetected) Coronavirus OC43 (PCR) Not Detected (NotDetected) Coronavirus HKU1 (PCR) Not Detected (NotDetected) Coronavirus 229E (PCR) Not Detected (NotDetected) SARS-CoV-2 (PCR) DETECTED A (NotDetected) Coronavirus NL63 (PCR) Not Detected (NotDetected) Human Metapneumovir PCR Not Detected (NotDetected) Influenza Type A (PCR) Not Detected (NotDetected) Influenza Type B (PCR) Not Detected (NotDetected) M. pneumoniae (PCR) Not Detected (NotDetected) Parainfluenza 1 (PCR) Not Detected (NotDetected) Parainfluenza 2 (PCR) Not Detected (NotDetected) Parainfluenza 3 (PCR) Not Detected (NotDetected) Parainfluenza 4 (PCR) Not Detected (NotDetected) RSV (PCR) Not Detected (NotDetected) Entero/Rhino (PCR) Not Detected (NotDetected) Imaging Data Attestation: I personally reviewed and interpreted this imaging study as follows: Radiologist's Impression: Chest X-Ray 11/29/24 00:16 EXAM: XR chest 1V portable CLINICAL HISTORY: SEPSIS WTW TECHNIQUE: Radiograph of chest was acquired. COMPARISON: 21 September 2023. FINDINGS: Small consolidation is noted in the right cardiophrenic angle region. This is a new finding. Rest of the lung bain appear normal. No pleural effusion is detected. The cardio-mediastinal silhouette is within normal limits. No acute osseous abnormality. Rest of the findings are unchanged compared to the previous radiograph. IMPRESSION: 1. Small consolidation is noted in the right cardiophrenic angle region. This is a new finding. Possibility of infective etiology. Suggested lab correlation. Electronically signed by Kobi Kimbrough 11-29-2024 01:55 AM MDM Narrative Prior records/ancillary studies reviewed. Triage Nursing notes reviewed. Additional history obtained from the EMS. The patient's history was concerning for respiratory difficulties. Differential diagnosis: Etiologies such as infections, reactive airway disease, pneumonia, pneumothorax, COPD, CHF, cardiac ischemia, pulmonary embolism, musculoskeletal, gastrointestinal, as well as others were entertained. Physical examination: As above. ER treatment provided: An order was placed for continuous cardiac monitoring. The monitor shows a rate of 60-100 with a sinus rhythm per my interpretation. Nebulizer, Solu-Medrol, oxygen, Zosyn for pneumonia as patient was just on Zithromax On reassessment the patient felt better. Diagnostic interpretation by me: The electrocardiogram was ordered for SOB. ECG: Normal sinus, normal intervals, minimal ST depression in the lateral leads, rate of 91. Impression normal sinus rhythm with nonspecific ST changes independently interpreted by myself The labs Independently Interpreted by myself revealed no worrisome leukocytosis, slightly elevated troponin concerning for type II Negative procalcitonin. Lactic 2.1 Positive COVID Imaging studies: Chest x-ray concerning for right lower lobe pneumonia per my independent interpretation. Consultation: A consultation was placed with the hospitalist. The case was discussed and diagnostics were reviewed. The patient was evaluated in the ER for further treatment. This appears to be consistent with pneumonia with COPD exacerbation who his O2 sats were low and also was positive for COVID but patient's been sick for a week so most likely this is bacterial. Troponin was slightly elevated concerning for type II IA patient was just on Zithromax and steroids. He now has a infiltrate on x-ray. He was tried on broad-spectrum antibiotics and blood cultures were ordered. He felt better with nebulizer steroids and oxygen. Medicine was consulted case is discussed. He will be admitted to the medical service.. By the evaluation outlined above emergent etiologies such as CHF, pulmonary embolism, reactive airway disease, pneumothorax, musculoskeletal, as well as others were deemed relatively unlikely. The pt informed about the findings as listed above. All questions were answered and pleased with the treatment. The chart was completed utilizing [employer] Speech voice recognition software. Grammatical errors, random word insertions, pronoun errors, and incomplete sentences are an occassional consequence of this system due to software limitations, ambient noise, and hardware issues. Any formal questions or concerns about the content, text, or information contained within the body of this dictation should be directly addressed to the physician human resources office assistant for clarification. Impression & Plan Community acquired pneumonia, Acute exacerbation of chronic obstructive airways disease, COVID-19 Discharge Plan Visit Data Chief Complaint: Shortness of Breath/Dyspnea Stated Complaint: SHORTNESS OF BREATH ED Provider: Greta Posadas ED Midlevel Provider: Coby Brooks Discharge Problem: Community acquired pneumonia, Acute exacerbation of chronic obstructive airways disease, COVID-19 Patient Disposition: Admitted As Inpatient Condition: Fair Forms Stand Alone Forms: [facility] Prescriptions Prescriptions: No Action clopidogrel 75 mg tablet 75 mg PO DAILY nitroglycerin 0.4 mg tablet, sublingual 0.4 mg sublingual UD PRN (Reason: Chest Pain) Rx Instructions: Take one nitro every 5 minutes up to three doses as needed for chest pain metoprolol succinate 25 mg tablet extended release 24 hr 25 mg PO QAM atorvastatin 80 mg tablet 80 mg PO QPM hydrocortisone 2.5 % cream with perineal applicator 1 applic NV BID PRN (Reason: irritation) pantoprazole 40 mg tablet,delayed release (DR/EC) 40 mg PO QAM acetaminophen [Tylenol Extra Strength] 500 mg Tablet 1,000 mg PO Q6H PRN (Reason: Pain) ipratropium-albuterol 0.5 mg-3 mg(2.5 mg base)/3 mL Solution For Nebulization 3 ml NEB Q6H PRN (Reason: sob/wheezing) Qty: 90 0RF albuterol sulfate 2.5 mg /3 mL (0.083 %) solution for nebulization 2.5 mg continuous nebulization Q4 PRN (Reason: Wheezing) benzonatate 100 mg capsule 100 mg PO TID PRN (Reason: Cough) Referrals Referrals: Sai Mason MD [Primary Care Provider] - Discharge Problem: Community acquired pneumonia Qualifiers: Laterality: unspecified laterality Qualified Code(s): J18.9 - Pneumonia, unspecified organism
[2024-11-29 00:23] VITALS: TEMP 98.2
[2024-11-29] MEDS: ALBUT/IPRATROP 3MG/0.5MG NEB 3 ML VIAL NEB STA (00:54)
[2024-11-29] MEDS: methylPREDNISolone 125 MG/2 ML VIAL IV STA (00:55)
[2024-11-29] MEDS: PIPERACILLIN/TAZOBACTAM 4.5 GM/100 ML BAG IV ONE (00:55)
[2024-11-29 01:04] LABS: Appearance Urine Clear (Clear); Bacteria Urine Automated None Seen (None Seen); Bilirubin Urine Negative (Negative); Blood Urine Negative (Negative); Cast Urine Automated 0-2 /lpf (0-2); Color Urine Yellow; Epithelial Cell Urine Auto 0-2 /hpf (0-2); Glucose Urine UA Negative (Negative); Ketones Urine Negative (Negative); Leukocyte Esterase Urine Negative (Negative); Nitrite Urine Negative (Negative); Protein Urine 1+ (Negative); RBC Urine Automated 0-2 /hpf (0-2); Specific Gravity Urine 1.017 (1.000-1.030); Urobilinogen Urine Negative (Negative); WBC Urine Automated 0-5 /hpf (0-5)
[2024-11-29 01:05] LABS: Basophils # (auto) 0.01 K/uL (0.00-0.20); Basophils % (auto) 0.1 %; Hematocrit (blood only) 30.9 % (42.0-52.0); Hemoglobin 9.9 g/dl (14.0-18.0); Immature Granulocytes # (auto) 0.06 K/uL (0.01-0.20); Immature Granulocytes % (auto) 0.7 %; Lymphocytes # (auto) 0.55 K/uL (1.20-3.40); Mean Corpuscular Hemoglobin 28.9 pg (25.0-34.0); Mean Corpuscular Volume 90.4 fL (80.0-100.0); Mean Platelet Volume 11.2 fL (9.4-12.4); Monocytes # (auto) 0.33 K/uL (0.11-0.59); Monocytes % (auto) 3.6 %; Neutrophils # (auto) 8.23 K/uL (1.40-6.50); Neutrophils % (auto) 89.6 %; Platelet Count 156 K/uL (130-400); RDW Coefficient of Variation 15.2 % (11.5-14.5); RDW Standard Deviation 49.8 fL (36.4-46.3); Red Blood Count 3.42 M/uL (4.70-6.10); White Blood Count 9.18 K/ul (4.8-10.8)
[2024-11-29 01:06] LABS: Base Excess VBG 4.2 mEq/L; HCO3 VBG 28 mmol/L; Oxygen Saturation VBG 67.4 %; PCO2 VBG 40 mmHg (38-50); PO2 VBG 44 mmHg; pH VBG 7.46 (7.36-7.41)
[2024-11-29 01:35] LABS: Albumin Level 4.3 gm/dl (3.4-5.0); BUN Creatinine Ratio 25.2 (10-20); Bilirubin,Total 0.6 mg/dl (0.2-1.0); Calcium 8.8 mg/dl (8.6-10.3); Creatinine Clr Calc Pharmacy 52.1 ml/min; Magnesium 1.9 mg/dl (1.7-2.4); Potassium 4.7 mmol/L (3.5-5.1); Total Protein 7.8 gm/dl (6.0-8.3); Troponin I High Sensitivity 22.6 pg/ml (0-20)
[2024-11-29 01:36] LABS: Bilirubin Direct 0.1 mg/dl (0-0.2)
[2024-11-29] MEDS: SODIUM CHLORIDE 0.9% 500 ML IV ONE (01:36)
[2024-11-29 01:47] LABS: Adenovirus PCR Not Detected (NotDetected); Bordetella parapertussis PCR Not Detected (NotDetected); Bordetella pertussis PCR Not Detected (NotDetected); Chlamydia pneumoniae PCR Not Detected (NotDetected); Coronavirus 229E PCR Not Detected (NotDetected); Coronavirus CoV-2 (COVID19)PCR DETECTED (NotDetected); Coronavirus HKU1 PCR Not Detected (NotDetected); Coronavirus NL63 PCR Not Detected (NotDetected); Coronavirus OC43PCR Not Detected (NotDetected); Human Metapneumovirus PCR Not Detected (NotDetected); Influenza A PCR Not Detected (NotDetected); Influenza B PCR Not Detected (NotDetected); Mycoplasma pneumoniae PCR Not Detected (NotDetected); Parainfluenza Virus 1 PCR Not Detected (NotDetected); Parainfluenza Virus 2 PCR Not Detected (NotDetected); Parainfluenza Virus 3 PCR Not Detected (NotDetected); Parainfluenza Virus 4 PCR Not Detected (NotDetected); Respiratory Syncytial VirusPCR Not Detected (NotDetected); Rhinovirus/Enterovirus PCR Not Detected (NotDetected)
--- NOTE | 2024-11-29 01:55 | XRay Report ---
EXAM: XR chest 1V portable CLINICAL HISTORY: SEPSIS WTW TECHNIQUE: Radiograph of chest was acquired. COMPARISON: 21 September 2023. FINDINGS: Small consolidation is noted in the right cardiophrenic angle region. This is a new finding. Rest of the lung bain appear normal. No pleural effusion is detected. The cardio-mediastinal silhouette is within normal limits. No acute osseous abnormality. Rest of the findings are unchanged compared to the previous radiograph. IMPRESSION: 1. Small consolidation is noted in the right cardiophrenic angle region. This is a new finding. Possibility of infective etiology. Suggested lab correlation. Electronically signed by Kobi Kimbrough 11-29-2024 01:55 AM
[2024-11-29] MEDS: ACETAMINOPHEN 500 MG TAB PO STA (02:10)
--- NOTE | 2024-11-29 03:36 | Emergency Department Note ---
ED Visit Note I was consulted by the Advanced Practice Provider, Sally Brooks PA-C. I personally made/approved the management plan and take responsibility for the patient management. I performed a substantive portion of the visit. This includes the aspects of: CXR to my interpretation reveals consolidation at the right base. Patient has tested positive for COVID19. He was given IV Zosyn and will be evaluated by the hospitalist service for admission and further management. .
--- NOTE | 2024-11-29 03:41 | History & Physical Report ---
Date of Service November 29, 2024 Assessment & Plan (1) Acute exacerbation of chronic obstructive airways disease: Plan: 84-year-old male with past medical history significant for dyslipidemia, prediabetes, COPD, hypertension, moderate to severe aortic stenosis, systolic congestive heart failure, CKD stage III, macular degeneration of right eye lives at home with his was brought in because of flulike symptoms going on for last 1 week and shortness of breath and cough. He was treated with Z-Dhruv and prednisone but was not getting better. For EMS his oxygen saturation were high 80s and was placed on nasal cannula. Patient is using nebulizer at home.Patient is somewhat hard of hearing and somewhat difficult to get history. But alert and awake. Seems comfortable. Denies any chest pain. Denies shortness of breath. Denies fevers. Denies nausea. Denies abdominal pain. Normal bowel and bladder movements. Hemodynamics are okay. Acute exacerbation of COPD Chest x-ray shows small consolidation in the right cardiophrenic angle. BioFire COVID is positive Empiric Rocephin and Doxy to cover community-acquired pneumonia Remdesivir and Decadron. Follow remdesivir labs Nebs [id number] and as needed Close monitor History of chronic systolic CHF Moderate to severe aortic stenosis Trace lower extremity edema Recent echo 10/14 EF 50 to 55% echo 11/2022 Ef 55-60% echo Ef 40-45% Not on home diuretics Will do a dose of IV Lasix 10 mg History of non-ST elevated PA Medically managed On statin, Plavix and Toprol-XL Mildly elevated troponin Mostly demand ischemia We will follow serial enzymes Prediabetes Will follow HbA1c levels CKD stage III Creatinine 1.1 We will follow labs Anemia chronic Hemoglobin 9.9 seems around recent baseline will check iron studies, vitamin b12 and folate levels and stool for hemeoccult. We will follow labs DVT prophylaxis Lovenox will monitor h and h. Disposition Med/telemetry Full code History of Present Illness Chief Complaint: Shortness of breath and cough Primary Care Provider: Sai Mason MD 84-year-old male with past medical history significant for dyslipidemia, prediabetes, COPD, hypertension, moderate to severe aortic stenosis, systolic congestive heart failure, CKD stage III, macular degeneration of right eye lives at home with his was brought in because of flulike symptoms going on for last 1 week and shortness of breath and cough. He was treated with Z-Dhruv and prednisone but was not getting better. For EMS his oxygen saturation were high 80s and was placed on nasal cannula. Patient is using nebulizer at home.Patient is somewhat hard of hearing and somewhat difficult to get history. But alert and awake. Seems comfortable. Denies any chest pain. Denies shortness of breath. Denies fevers. Denies nausea. Denies abdominal pain. Normal bowel and bladder movements. Hemodynamics are okay. Past medical history. As mentioned above Past surgical history. History of cataract surgery. Status post cardiac catheterization. History of lithotripsy. Social history. Former smoker. Drinks alcohol. No drug use. Family history. Sister had heart disease. Brother had heart disease. Allergies Allergy/AdvReac Type Severity Reaction Status Date / Time No Known Allergies Allergy Unknown Verified 09/25/24 16:50 Home Medications Medication Instructions Recorded Confirmed Type acetaminophen 500 mg tablet 1,000 mg PO Q6H PRN Pain 10/10/21 11/29/24 History (Tylenol Extra Strength) clopidogrel 75 mg tablet 75 mg PO DAILY 09/17/22 11/29/24 History metoprolol succinate 25 mg 25 mg PO QAM 09/17/22 11/29/24 History tablet,extended release 24 hr nitroglycerin 0.4 mg sublingual 0.4 mg sublingual UD PRN Chest Pain 09/17/22 11/29/24 History tablet ipratropium 0.5 mg-albuterol 3 mg 3 ml NEB Q6H PRN sob/wheezing #90 09/24/22 11/29/24 Rx (2.5 mg base)/3 mL nebulization mL soln atorvastatin 80 mg tablet 80 mg PO QPM 11/06/22 11/29/24 History hydrocortisone 2.5 % topical cream 1 applic OH BID PRN irritation 11/30/22 11/29/24 History with perineal applicator pantoprazole 40 mg tablet,delayed 40 mg PO QAM 09/20/23 11/29/24 History release albuterol sulfate 2.5 mg/3 mL 2.5 mg continuous nebulization Q4 09/25/24 11/29/24 History (0.083 %) solution for nebulization PRN Wheezing benzonatate 100 mg capsule 100 mg PO TID PRN Cough 11/29/24 11/29/24 History dexamethasone 6 mg tablet 6 mg PO DAILY #10 tabs 11/29/24 Rx Past Med/Surg History Problem List (Updated 11/29/24 @ 02:54 by Coby Brooks PA-C) COVID-19 (Acute) Acute exacerbation of chronic obstructive airways disease (Acute) Community acquired pneumonia (Acute) Arm pain, left (Acute) Ischemic cardiomyopathy CAD (coronary artery disease) Non-ST elevation (NSTEMI) myocardial infarction 2020 Medical History (Updated 11/29/24 @ 02:54 by Coby Brooks PA-C) Acute kidney injury superimposed on chronic kidney disease Moderate to severe aortic stenosis Dyslipidemia HTN (hypertension) with goal to be determined CKD (chronic kidney disease), stage III Surgical History History of cataract surgery S/P cardiac catheterization H/O lithotripsy Family History Sister Heart disease Brother Heart disease Social History Smoking Status: Former smoker Tobacco Type: Cigars Second Hand Exposure: No; Do You Dip or Chew Tobacco: No; Hx Alcohol Use: Yes Alcohol type: other Hx Substance Use: No Preferred Language: Uzbek Communication Ability: Effective Communication Ability Comment: [facility] Dust Operator Required: No Beliefs That Will Affect Care: None marital status: Current Living Situation: Spouse Current Living Situation Comment: lives at home with Other Information That Helps Us Care for You: No Feels Safe at Home: Yes Safety Concerns: Feels Safe At This Time Assistive Devices: Glasses Review of Systems Review of Systems: Other very hard of hearing Physical Exam Physical Exam: General- Not in acute distress Head- atraumatic Eyes- PERRL. ENT- oropharynx clear Neck- supple, no JVD. Lungs- clear to auscultation mild b/l wheezing Heart- regular rhythm; no murmur, no gallop. Abdomen- normal bowel sounds, soft, nontender, no distension Extremities- trace pretibial edema present, no erythema seen Neuro- alert, oriented PERRL, E no facial palsy; no dysarthria; obeys simple commands, moves extremities Results & Data Results & Data Vital Signs (Past 12 Hours) Vital Signs Temp Pulse Pulse Resp BP BP Pulse Ox 11/29/24 01:35 93 H 33 H 116/70 93 11/29/24 00:16 98 H 18 94 11/29/24 00:16 92 11/29/24 00:16 36.8 C 105 H 18 157/89 H 92 O2 Del Method O2 Flow Rate 11/29/24 01:35 Room Air 11/29/24 00:16 Room Air 11/29/24 00:16 Room Air 0 11/29/24 00:16 Room Air Diagnostic Findings Laboratory Results WBC 9.18 K/ul (4.8-10.8) 11/29/24 00:40 RBC 3.42 M/uL (4.70-6.10) L 11/29/24 00:40 Hgb 9.9 g/dl (14.0-18.0) L 11/29/24 00:40 Hct 30.9 % (42.0-52.0) L 11/29/24 00:40 MCV 90.4 fL (80.0-100.0) 11/29/24 00:40 MCH 28.9 pg (25.0-34.0) 11/29/24 00:40 MCHC 32.0 g/dL (32.0-36.0) 11/29/24 00:40 RDW Std Deviation 49.8 fL (36.4-46.3) H 11/29/24 00:40 RDW Coeff of Kaiden 15.2 % (11.5-14.5) H 11/29/24 00:40 Plt Count 156 K/uL (130-400) 11/29/24 00:40 MPV 11.2 fL (9.4-12.4) 11/29/24 00:40 Immature Gran % (Auto) 0.7 % 11/29/24 00:40 Neut % (Auto) 89.6 % 11/29/24 00:40 Lymph % (Auto) 6.0 % 11/29/24 00:40 Drew % (Auto) 3.6 % 11/29/24 00:40 Eos % (Auto) 0.0 % 11/29/24 00:40 Baso % (Auto) 0.1 % 11/29/24 00:40 Neut # (Auto) 8.23 K/uL (1.40-6.50) H 11/29/24 00:40 Lymph # (Auto) 0.55 K/uL (1.20-3.40) L 11/29/24 00:40 Drew # (Auto) 0.33 K/uL (0.11-0.59) 11/29/24 00:40 Eos # (Auto) 0.00 K/uL (0.00-0.50) 11/29/24 00:40 Baso # (Auto) 0.01 K/uL (0.00-0.20) 11/29/24 00:40 Immature Gran # (Auto) 0.06 K/uL (0.01-0.20) 11/29/24 00:40 VBG pH 7.46 (7.36-7.41) H 11/29/24 00:56 VBG pCO2 40 mmHg (38-50) 11/29/24 00:56 VBG pO2 44 mmHg 11/29/24 00:56 VBG HCO3 28 mmol/L 11/29/24 00:56 VBG O2 Saturation 67.4 % 11/29/24 00:56 VBG Base Excess 4.2 mEq/L 11/29/24 00:56 Sodium 141 mmol/L (136-145) 11/29/24 00:40 Potassium 4.7 mmol/L (3.5-5.1) 11/29/24 00:40 Chloride 105 mmol/L (98-107) 11/29/24 00:40 Carbon Dioxide 30 mmol/L (21-32) 11/29/24 00:40 Anion Gap 6 (3-11) 11/29/24 00:40 BUN 30 mg/dl (6-23) H 11/29/24 00:40 Creatinine 1.19 mg/dl (0.6-1.4) 11/29/24 00:40 Est Cr Clr Drug Dosing 52.1 ml/min 11/29/24 00:40 eGFR 60.99 11/29/24 00:40 BUN/Creatinine Ratio 25.2 (10-20) H 11/29/24 00:40 Glucose 136 mg/dl (70-99(Fasting)) H 11/29/24 00:40 Lactate 2.1 mmol/L (0.4-2.0) H* 11/29/24 00:40 Calcium 8.8 mg/dl (8.6-10.3) 11/29/24 00:40 Magnesium 1.9 mg/dl (1.7-2.4) 11/29/24 00:40 Total Bilirubin 0.6 mg/dl (0.2-1.0) 11/29/24 00:40 Direct Bilirubin 0.1 mg/dl (0-0.2) 11/29/24 00:40 AST 55 U/L (13-39) H 11/29/24 00:40 ALT 51 U/L (7-52) 11/29/24 00:40 Alkaline Phosphatase 154 U/L (34-104) H 11/29/24 00:40 Troponin I High Sens 22.6 pg/ml (0-20) H 11/29/24 00:40 B-Natriuretic Peptide 436 pg/ml (0-100) H 11/29/24 00:56 Total Protein 7.8 gm/dl (6.0-8.3) 11/29/24 00:40 Albumin 4.3 gm/dl (3.4-5.0) 11/29/24 00:40 Procalcitonin 0.15 ng/ml (0-0.5) 11/29/24 00:40 Urine Color Yellow 11/29/24 00:40 Urine Appearance Clear (Clear) 11/29/24 00:40 Urine pH 7.0 (4.5-7.5) 11/29/24 00:40 Ur Specific Hoskins 1.017 (1.000-1.030) 11/29/24 00:40 Urine Protein 1+ (Negative) H 11/29/24 00:40 Urine Glucose (UA) Negative (Negative) 11/29/24 00:40 Urine Ketones Negative (Negative) 11/29/24 00:40 Urine Blood Negative (Negative) 11/29/24 00:40 Urine Nitrite Negative (Negative) 11/29/24 00:40 Urine Bilirubin Negative (Negative) 11/29/24 00:40 Urine Urobilinogen Negative (Negative) 11/29/24 00:40 Ur Leukocyte Esterase Negative (Negative) 11/29/24 00:40 Urine WBC (Auto) 0-5 /hpf (0-5) 11/29/24 00:40 Urine RBC (Auto) 0-2 /hpf (0-2) 11/29/24 00:40 U Hyaline Cast (Auto) 0-2 /lpf (0-2) 11/29/24 00:40 U Epithel Cells (Auto) 0-2 /hpf (0-2) 11/29/24 00:40 Urine Bacteria (Auto) None Seen (None Seen) 11/29/24 00:40 Adenovirus (PCR) Not Detected (NotDetected) 11/29/24 00:39 B. pertussis DNA (PCR) Not Detected (NotDetected) 11/29/24 00:39 B.parapertussis DNA PCR Not Detected (NotDetected) 11/29/24 00:39 C. pneumoniae DNA (PCR) Not Detected (NotDetected) 11/29/24 00:39 Coronavirus OC43 (PCR) Not Detected (NotDetected) 11/29/24 00:39 Coronavirus HKU1 (PCR) Not Detected (NotDetected) 11/29/24 00:39 Coronavirus 229E (PCR) Not Detected (NotDetected) 11/29/24 00:39 SARS-CoV-2 (PCR) DETECTED (NotDetected) A 11/29/24 00:39 Coronavirus NL63 (PCR) Not Detected (NotDetected) 11/29/24 00:39 Human Metapneumovir PCR Not Detected (NotDetected) 11/29/24 00:39 Influenza Type A (PCR) Not Detected (NotDetected) 11/29/24 00:39 Influenza Type B (PCR) Not Detected (NotDetected) 11/29/24 00:39 M. pneumoniae (PCR) Not Detected (NotDetected) 11/29/24 00:39 Parainfluenza 1 (PCR) Not Detected (NotDetected) 11/29/24 00:39 Parainfluenza 2 (PCR) Not Detected (NotDetected) 11/29/24 00:39 Parainfluenza 3 (PCR) Not Detected (NotDetected) 11/29/24 00:39 Parainfluenza 4 (PCR) Not Detected (NotDetected) 11/29/24 00:39 RSV (PCR) Not Detected (NotDetected) 11/29/24 00:39 Entero/Rhino (PCR) Not Detected (NotDetected) 11/29/24 00:39 Impressions Chest X-Ray 11/29/24 00:16 EXAM: XR chest 1V portable CLINICAL HISTORY: SEPSIS WTW TECHNIQUE: Radiograph of chest was acquired. COMPARISON: 21 September 2023. FINDINGS: Small consolidation is noted in the right cardiophrenic angle region. This is a new finding. Rest of the lung bain appear normal. No pleural effusion is detected. The cardio-mediastinal silhouette is within normal limits. No acute osseous abnormality. Rest of the findings are unchanged compared to the previous radiograph. IMPRESSION: 1. Small consolidation is noted in the right cardiophrenic angle region. This is a new finding. Possibility of infective etiology. Suggested lab correlation. Electronically signed by Kobi Kimbrough 11-29-2024 01:55 AM ECG Additional Comments: ECG normal sinus rhythm rate of 91. Nonspecific ST abnormalities inferior leads. QTc 437 Code Status & VTE Plan VTE Prophylaxis Plan VTE Prophylaxis will be ordered: Yes
[2024-11-29] MEDS ORDERED: ALBUT/IPRATROP 3MG/0.5MG NEB 3 ML VIAL NEB PRN (03:52)
[2024-11-29] MEDS ORDERED: BENZONATATE 100 MG CAPSULE PO PRN (03:52)
[2024-11-29] MEDS ORDERED: POLYETHYLENE (MIRALAX) 17 GM PACK PO PRN (03:52)
[2024-11-29] MEDS ORDERED: NITROGLYCERIN SL 0.4 MG/TAB TAB SL PRN ×2 (03:52)
[2024-11-29] MEDS ORDERED: ACETAMINOPHEN 325 MG TAB PO PRN (03:52)
[2024-11-29] MEDS: REMDESIVIR 200 MG in SODIUM CHLORIDE 0.9% 210 ML IV STA (04:19)
[2024-11-29] MEDS: FUROSEMIDE INJ 20 MG/2 ML VIAL IV ONE (04:19)
[2024-11-29 04:47] LABS: Albumin Level 3.5 gm/dl (3.4-5.0); Bilirubin Direct 0.2 mg/dl (0-0.2); Bilirubin,Total 0.5 mg/dl (0.2-1.0); Total Protein 6.4 gm/dl (6.0-8.3)
[2024-11-29] MEDS: ALBUT/IPRATROP 3MG/0.5MG NEB 3 ML VIAL NEB SCH (06:02)
[2024-11-29] MEDS: cefTRIAXone SODIUM 2,000 MG/50 ML BAG IV SCH (06:25)
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
--- OUTSIDE RECORDS SUMMARY | 2024-11-29 06:54 | External Medical Summary | Summary of Care ---
Author Name Unknown Organization [facility] Address [address] [place] [address] Phone [phone] Care Team Providers Care Database Management Specialist Name Role Phone Sai Mason MD Primary Care Provider +1- [phone] Reason for Visit * Reason Onset Date Comments Hospital Follow-Up ED follow up. Patient was seen on 09/25 for chest and shoulder pain. Thought it was heart related but was related to the muscles in his shoulders and back. Patient states he is feeling better now. Hospital Follow-Up 10/22/2024 Encounter Details Date Type Department Care Team (Late st Contact Info) Description 10/04/2024 3:00 PM EST Office Visit [facility] [address] [place] [phone] Sai Mason MD [address] [place] [address] Chest pain, unspecified type*; Pancytopenia (HCC); Pneumonia due to infectious organism, unspecified laterality, unspecified part of lung; Hospital discharge follow-up Allergies No known active allergiesdocumented as of this encounter (statuses as of 10/22/2024) Medications Acetaminophen 500 MG Oral Tablet (Tylenol) [...] s:COPD, group B, by GOLD 2017 classification ([facility]),Restrictive lung disease Inhale 3 mL by mouth every 6 hours as needed for Shortness of Breath. 120 mL 1 4 Active Montelukast Sodium 10 MG Oral Tablet (Singulair)Indicat ions:COPD, group B, by GOLD 2017 classification ([facility]),Restrictive lung disease Take 1 Tablet by [...] A DAY 90 g 3 4 Active Benzonatate 100 MG Oral Capsule (Teshan Pang)Indications :Pneumonia due to infectious organism, unspecified laterality, unspecified part of lung Take 1 Capsule by mouth 3 times a day as needed for Cough. 90 Capsule 1 4 Active documented as of this encounter (statuses as of 10/22/2024) Active Problems Problem Noted Date Diagnosed Date [...] as of this encounter (statuses as of 10/22/2024) Resolved Problems Problem Noted Date Diagnosed Date [...] as of this encounter (statuses as of 10/22/2024) Immunizations Name Administration Dates Next Due COVID-19 mRNA, LNP-s, No Pre serve, 2-Dose Series (LiveOnDemand) 10/30/2021,02/16/2021,01/21/2021 COVID-19, LNP-s, No Preserve , Carroll-sucrose, Ages 12+ (Pfizer) 06/08/2022 Covid-19, Mrna, Lnp-s, Pf, B ivalent, 30 Mcg, IM, 12 yrs and above (Pfizer) 01/03/2023 Pneumococcal Conjugate Vacci ne, 20-valent ([id number]) 11/19/2022 Season Influenza, Quad, PF, Adjuvanted, 65+ [...] Sign Reading Time Taken Comments Blood Pressure 116/74 10/04/2024 2:53 PM EST Pulse 70 10/04/2024 2:53 PM EST Temperature 35.6 C (96.1 F) 10/04/2024 2:53 PM ES T Respiratory Rate 16 10/04/2024 2:53 PM EST Oxygen Saturation 92% 10/04/2024 2:53 PM EST Inhaled Oxygen Concentration - - Weight 80.7 kg (178 lb) 10/04/2024 2:53 PM EST Height 170.2 cm (5' 7") 10/04/2024 2:53 PM EST Body Mass Index 27.88 10/04/2024 2:53 PM EST documented in this encounter Functional Status * Are you deaf or do you have serious difficulty hearing? Answer Date of Assessment Author No 05/15/2021 11:40 PM EDT Alejo Menezes, RN * Are you blind or do [...] 05/15/2021 11:40 PM Alejo Cadena RN documented as of this encounter Mental Status * Because of a physical, mental, or emotional condition, do you have serious difficulty concentrating, remembering, or making decisions? (5 years old or older) Answer Entry Date Author No 05/15/2021 11:40 PM Alejo Cadena RN documented in this encounter Progress Notes * Sai Mason MD - 10/22/2024 8:25 PM EST Subjective: Jt Little is a 83 year old male here today for Chief Complaint Patient presents with Hospital Follow-Up ED follow up. Patient was seen on 09/25 for chest and shoulder pain. Thought it was heart related but was related to the muscles in his shoulders and back. Patient states he is feeling better now. Pt presents for hospital follow up. Admitted to [facility] [place] 09/25/24 - 09/26/24. Admitted for chest pain andleft arm pain. Please see d/c summary for full details. No evidence for AK or ACS. Feeling better. No acute complaints today. Past Medical History: Diagnosis Date Calculus of kidney COPD (chronic obstructive pulmonary disease) (HCC) Dyslipidemia, goal to be determined HTN, goal below 140/90 Past Surgical History: Procedure Laterality Date CORONARY ANGIOGRAPHY W/LEFT HEART CATH Left 05/18/2021 CORONARY ANGIOGRAPHY W/LEFT HEART CATH performed by Mame Michaels MD at CARDIAC LABS [facility] CYSTO/URETERO, STONE REMOVE 2003 EGD, FLEXIBLE, DIAGNOSTIC N/A 12/02/2022 [facility] [place], EGD, normal scope / no specimens collected / INJECTION OF EYE DRUG Right 06/07/2018 # 1 Avastin OD; Dr. Maxwell INJECTION OF EYE DRUG Right 07/13/2018 # 2 Avastin OD, INJECTION OF EYE DRUG Right 08/22/2018 # 3 Avastin OD, Dr. Maxwell INSERTION OF LENS PROSTHESIS Right 2012 LASERING OF SECONDARY CATARACT Right 07/12/2018 Dr. Adelita ASIFCELLANEOUS ORDER ([facility] ONLY) Right 06/07/2018-06/07/2019 AVASTIN CONSENT OD SIGNED; DR RIK ASIFCELLANEOUS ORDER ([facility] ONLY) ACT 112 signed, 01/04/2019 REMOVE CATARACT, INSERT LENS PROSTH Left 07/20/2018 left EXTRACAPSULAR CATARACT REMOVAL WITH INTRAOCULAR LENS performed by Ab Velazquez MD at OR [facility] Review of patient's allergies indicates: No Known Allergies Current Outpatient Medications Medication Sig Dispense Refill Acetaminophen 500 MG Oral Tablet (Tylenol) Take 2 Tablets by mouth every 6 hours as needed. Nitroglycerin 0.4 MG Sublingual Tablet Sublingual (Nitrostat) Place 1 Tablet under the tongue every5 minutes as needed for Pain, Chest. up to 3 doses in 15 minutes 20 Tablet 0 Atorvastatin Calcium 80 MG Oral Tablet (Lipitor) [...] mouth in the morning. 90 Tablet 2 Benzonatate 100 MG Oral Capsule (Tessalon Perles) Take 1 Capsule by mouth 3 times a day as needed for Cough. 90 Capsule 1 Albuterol Sulfate (2.5 MG/3ML) 0.083% Inhalation Nebulization [...] morning. (Mucus and cough). 30 Tablet 0 Hydrocortisone (Perianal) 2.5 % External Cream ADMINISTER INTO THE RECTUM TWO TIMES A DAY 90 g 3 No current facility-administered medications for this visit. Objective: BP 116/74 | Pulse 70 | Temp 96.1 F (35.6 C) (Tympanic) | Resp 16 | Ht 5' 7" (1.702 m) | Wt 178 lb (80.7 kg) | SpO2 92% | BMI 27.88 kg/m | BSA 1.95 m GEN: NAD HEENT: Benign NECK: Supple with no LAD, TM, JVD CHEST: CTA B CV: RRR ABD: Soft, NT/ND, No HSM, NABS EXT: No c,c,e Assessment and Plan: Chest pain, unspecified type (Primary) -non-cardiac. Routine cardiology follow up as scheduled and continue same meds. Pancytopenia (HCC) - CBC; Future; Expected date: 10/04/2024 Sai Mason MD documented in this encounter Nursing Notes * Carolina Keith MED ASSIST - 10/04/2024 3:00 PM EST The patient has been properly identified by confirmation of name and date of . Chief Complaint Patient presents with Hospital Follow-Up ED follow up. Patient was seen on 09/25 for chest and shoulder pain. Thought it was heart related but was related to the muscles in his shoulders and back. Patient states he is feeling better now. documented in this encounter Plan of Treatment Upcoming Encounters Date Type Department Care Team (Late st Contact Info) Description 02/08/2025 12:00 PM EDT Imaging Radiology [facility] [address]st [facility], [place] [address] [facility] [place] [address] 03/05/2025 4:00 PM EDT Office Visit [facility] [address] [place] [phone] Sai Mason MD [address] [facility] [place] [address] 05/15/2025 8:30 AM EDT Cardiac Studies Cardiac Studies, [facility] [address] [place] [address] 05/15/2025 9:30 AM EDT Office Visit Cardiology, [facility] [address] [place] [address] Sj Hansen MD [address] [place] [address] Health Maintenance Due Date Last Done Comments Alpha-1 Antitrypsin 1960 DTap/Tdap Vaccines (1 - Tdap) 1961 Zoster Vaccines (1 of 2) 1992 Adult Wellness Visit 2008 COVID-19 Vaccine ( season) 2024 10/21/2023, 01/03/2023, 06/08/2022, Additional history exists Albumin/Creatinine Ratio 08/23/2024 08/23/2023 GFR 02/26/2025 08/28/2024, 01/19, 08/23/2023, Additional history exists Depression Screening 03/21/2025 03/21/2024 CKD PHOS USE SMARTSET 89346 08/28/2025 10/0 06/2024, 08/03/2022, 11/19/2020 HbA1c 08/28/2025 08/28/2024, 01/19, 08/23/2023, Additional history exists CKD HGB USE SMARTSET 69119 10/04/202510/04, 02/03/2024, 08/23/2023, Additional history exists O2 ASSESSMENT COMPLETED IN PAST YEAR FOR COPD 10/04/2025 10/04/2024 Pneumococcal Vaccine: 65+ Years Completed 11/19/2022 HPV [...] this encounter Medical Devices Implanted Type Area Prepared Foods Team Leader Device Identifier Shelf Expiration Date Model / Serial / Lot Lens 25.0 Mx60e - [id number] - [id number] Implanted:Qty: 1 on 07/20/2018 by Ab Velazquez MD at OR [facility] Left: Eye BAUSCH & LOMB 12/21/2019 [id number] / [id number] / [id number] documented as of this encounter Results * (ABNORMAL) CBC (10/04/2024 3:47 PM EST) Pathologist [facility] WBC 3.94(L) 4.00 - 10.80 K/uL 10/04/2024 11:14 PM EST [facility] RBC 3.49 4.50 - 5.25 M/uL 10/04/2024 11:14 PM EST [facility] HGB 10.7(L) 14.0 - 16.8 g/dL 10/04/2024 11:14 PM EST [facility] HCT 34.8(L) 40.0 - 48.4 % 10/04/2024 11:14 PM EST [facility] MCV 99.7 82.0 - 99.5 fL 10/04/2024 11:14 PM EST [facility] MCH 30.7 27.0 - 34.0 pg 10/04/2024 11:14 PM EST [facility] MCHC 30.7 32.0 - 36.0 g/dL 10/04/2024 11:14 PM EST [facility] RDW 14.8 11.5 - 15.5 % 10/04/2024 11:14 PM EST [facility] PLT 123(L) 140 - 400 K/uL 10/04/2024 11:14 PM EST [facility] MPV 11.8 6.6 - 11.1 fL 10/04/2024 11:14 PM EST [facility] nRBCs 0 <=0 /100 WBCs 10/04/2024 11:14 PM EST [facility] Blood Venous blood specimen / Unknown Venipuncture / Unknown 10/04/2024 3:47 PM EST 10/04/2024 3:47 PM EST us Sai Mason MD LAB BLOOD ORDERABLES Final Result LABORATORY [facility] [address] [place] [address] documented in this encounter Visit Diagnoses Diagnosis Chest pain, unspecified type- Primary Pancytopenia (HCC) Other pancytopenia Pneumonia due to infectious organism, unspecified laterality, unspecified part of lung Hospital discharge follow-up Other follow-up examination documented in this encounter Advance Directives * [...] and were consensually agreed upon. Care Teams Database Management Specialist Relationship Specialty Start Date End Date Sai Mason MD [address] [place] [address] PCP - General 01/17/06 documented as of this encounter
--- OUTSIDE RECORDS SUMMARY | 2024-11-29 06:54 | External Medical Summary | Summary of Care ---
Author Name Unknown Organization [facility] Address [address] [place] [address] Phone [phone] Care Team Providers Care Director Loss Prevention Name Role Phone Sai Mason MD Primary Care Provider +1- [phone] Reason for Visit * Reason Comments Outpatient Testing Encounter Details Date Type Department Care Team (Late st Contact Info) Description 10/04/2024 3:50 PM EST Laboratory Laboratory, [facility] [address] [place] [address] [facility] [address] [place] [address] Pancytopenia (HCC) Allergies No known active allergiesdocumented as of this encounter (statuses as of 10/04/2024) Medications Acetaminophen 500 MG Oral Tablet (Tylenol) [...] s:COPD, group B, by GOLD 2017 classification ([facility]),Restrictive lung disease Inhale 3 mL by mouth every 6 hours as needed for Shortness of Breath. 120 mL 1 4 Active Montelukast Sodium 10 MG Oral Tablet (Singulair)Indicat ions:COPD, group B, by GOLD 2017 classification ([facility]),Restrictive lung disease Take 1 Tablet by mouth [...] 4 Active Benzonatate 100 MG Oral Capsule (Tessalon Perles)Indications :Pneumonia due to infectious organism, unspecified laterality, unspecified part of lung Take 1 Capsule by mouth 3 times a day as needed for Cough. 90 Capsule 1 4 Active documented as of this encounter (statuses as of 10/04/2024) Active Problems Problem Noted Date Diagnosed Date [...] as of this encounter (statuses as of 10/04/2024) Resolved Problems Problem Noted Date Diagnosed Date [...] as of this encounter (statuses as of 10/04/2024) Immunizations Name Administration Dates Next Due COVID-19 mRNA, LNP-s, No Pre serve, 2-Dose Series (Glooko) 10/30/2021,02/16/2021,01/21/2021 COVID-19, LNP-s, No Preserve , Carroll-sucrose, Ages 12+ (Pfizer) 06/08/2022 Covid-19, Mrna, Lnp-s, Pf, B ivalent, 30 Mcg, IM, 12 yrs and above (Pfizer) 01/03/2023 Pneumococcal Conjugate Vacci ne, 20-valent ([id number]) 11/19/2022 Season Influenza, Quad, PF, Adjuvanted, 65+ [...] No 05/15/2021 11:40 PM EDT Alejo Menezes, ANNA * Because of a physical, mental, or emotional condition, do you have difficulty doing errands alone such as visiting a doctors office or shopping? (15 years old or older) Answer Date of Assessment Author No 05/15/2021 11:40 PM EDT Alejo Menezes, ANNA documented as of this encounter Mental Status * Because of a physical, mental, or emotional condition, do you have serious difficulty concentrating, remembering, or making decisions? (5 years old or older) Answer Entry Date Author No 05/15/2021 11:40 PM EDT Alejo Menezes, ANNA documented in this encounter Plan of Treatment Upcoming Encounters Date Type Department Care Team (Late st Contact Info) Description 02/08/2025 12:00 PM EDT Imaging Radiology [facility] 1st [facility] [place] [address] [place] [address] 03/05/2025 4:00 PM EDT Office Visit Family Practice, [facility] [address] [place] [address] Sai Mason MD [address] [place] [address] 05/15/2025 8:30 AM EDT Cardiac Studies [facility] [address] 05/15/2025 9:30 AM EDT Office Visit Cardiology, [facility] [address] [place] [address] Sj Hansen MD [address] [place], [place] [id number] Pending Results Name Type Priority Associated Diagnoses Date /Time CBC Lab Routine Pancytopenia (HCC) 10/04/2024 3:47 PM EST Health Maintenance Due Date Last Done Comments Alpha-1 Antitrypsin 1960 DTap/Tdap Vaccines (1 - Tdap) 1961 Zoster Vaccines (1 of 2) 1992 Adult Wellness Visit 2008 COVID-19 Vaccine ( season) 2024 10/21/2023, 01/03/2023, 06/08/2022, Additional history exists Albumin/Creatinine Ratio 08/23/2024 08/23/2023 CKD HGB USE SMARTSET 09629 02/02/202502/02, 08/23/2023, 12/20/2022, Additional history exists GFR 02/26/2025 08/28/2024, 01/19, 08/23/2023, Additional history exists Depression Screening 03/21/2025 03/21/2024 CKD PHOS USE SMARTSET 75015 08/28/2025 1006/2024, 08/03/2022, 11/19/2020 HbA1c 08/28/2025 08/28/2024, 01/19, 08/23/2023, [...] this encounter Medical Devices Implanted Type Area Switch Operators Supervisor Device Identifier Shelf Expiration Date Model / Serial / Lot Lens 25.0 Mx60e - [id number] - [id number] Implanted:Qty: 1 on 07/20/2018 by Ab Velazquez MD at OR [facility] Left: Eye BAUSCH & LOMB 12/21/2019 [id number] / [id number] / [id number] documented as of this encounter Visit Diagnoses Diagnosis Pancytopenia (HCC) Other pancytopenia documented in this encounter Advance Directives * [...] were consensually agreed upon. Care Teams Director Loss Prevention Relationship Specialty Start Date End Date Sai Mason MD [address] [place] [address] PCP - General 01/17/06 documented as of this encounter
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
--- OUTSIDE RECORDS SUMMARY | 2024-11-29 06:54 | External Medical Summary ---
Author Name Unknown Address Unknown Organization [id number][place] [place] [facility] [address] [place] [address] Laboratory Report Ordering Provider Test Date Status XAVI AVILA 10/04/2024 15:47:36 Final Observation Date Value Abnormality Reference (Units ) Status WBC, Total 10/04/2024 15:47:36 3.94 Below low normal 4.00-10.80 (K/uL) Final RBC 10/04/2024 15:47:36 3.49 4.50-5.25 (M/uL) Final Hemoglobin 10/04/2024 15:47:36 10.7 Below low normal 14.0-16.8 (g/dL) Final HCT 10/04/2024 15:47:36 34.8 Below low normal 40.0-48.4 (%) Final MCV 10/04/2024 15:47:36 99.7 82.0-99.5 (fL) Final MCH 10/04/2024 15:47:36 30.7 27.0-34.0 (pg) Final MCHC 10/04/2024 15:47:36 30.7 32.0-36.0 (g/dL) Final RDW 10/04/2024 15:47:36 14.8 11.5-15.5 (%) Final Platelets 10/04/2024 15:47:36 123 Below low normal 140-400 (K/uL) Final MPV 10/04/2024 15:47:36 11.8 6.6-11.1 (fL) Final Nucleated erythrocytes/100 leukocytes [Ratio] in Blood by Automated count 10/04/2024 15:47:36 0 <=0 (/100 WBCs) Final Performing Location [facility] [place] [facility] [address] [place] [id number]
--- OUTSIDE RECORDS SUMMARY | 2024-11-29 06:54 | External Medical Summary | Summary of Care ---
Author Name Unknown Organization [facility] Address [address] [place] [address] Phone [phone] Care Team Providers Care Channel Installer Name Role Phone Sai Mason MD Primary Care Provider [phone] Reason for Visit * Reason Onset Date Comments Hospital Follow-Up 09/27/2024 [facility] ([facility]) Encounter Details Date Type Department Care Team ([facility] st Contact Info) Description 09/27/2024 Telephone [facility] [address] [place] [phone] Yoly Berg, ANNA Hospital Follow-Up ([facility] ([facility])) Allergies No known active allergiesdocumented as of this encounter (statuses as of 09/27/2024) Medications Medication Sig Dispensed Refills Start Date [...] OPD, group B, by GOLD 2017 classification ([facility]),Restrictive lung disease Inhale 3 mL by mouth every 6 hours as needed for Shortness of Breath. 120 mL 1 03/21/2024 Active Montelukast Sodium 10 MG Oral Tablet (Singulair)Indication s:COPD, group B, by GOLD 2017 classification ([facility]),Restrictive lung disease Take 1 Tablet [...] as of this encounter (statuses as of 09/27/2024) Active Problems Problem Noted Date Diagnosed Date [...] as of this encounter (statuses as of 09/27/2024) Resolved Problems Problem Noted Date Diagnosed Date [...] as of this encounter (statuses as of 09/27/2024) Immunizations Name Administration Dates Next Due COVID-19 mRNA, LNP-s, No Pre serve, 2-Dose Series ([employer]) 10/30/2021,02/16/2021,01/21/2021 COVID-19, LNP-s, No Preserve , Carroll-sucrose, Ages 12+ (Pfizer) 06/08/2022 Covid-19, Mrna, Lnp-s, Pf, B ivalent, 30 Mcg, IM, 12 yrs and above (Pfizer) 01/03/2023 Pneumococcal Conjugate Vacci ne, 20-valent ([id number]) 11/19/2022 Season Influenza, Quad, PF, Adjuvanted, 65+ [...] for follow up: ADDY #1 Admitted to: [facility], Date: 09/25/2024 Discharged to: Home, Date: 09/26/2024 Diagnosis driving hospitalization: Left Arm Pain, ACS ruled out Attempted Phone Call First Attempt Call Outcome Unable to Leave Message Yoly Berg RN documented in this encounter Plan of Treatment Upcoming Encounters Date Type Department Care Team (Late st Contact Info) Description 10/01/2024 2:20 PM EST Office [facility] [address] [facility] [phone] Sai Mason [facility] [address] [facility] [address] 02/08/2025 12:00 PM EDT Imaging Radiology [facility] [address] [place] [address] 03/05/2025 4:00 PM EDT Office Visit [facility] [address] [place] [address] Sai Mason MD [address] [place] [facility] [place] [address] 05/15/2025 8:30 AM EDT Cardiac Studies Cardiac Studies, [address] [place] [address] 05/15/2025 9:30 AM EDT Office Visit Cardiology, [address] [place] [address] Sj Hansen MD [address] [place] [address] Health Maintenance Due Date Last Done Comments Alpha-1 Antitrypsin 1958 Adult Wellness Visit 2008 COVID-19 Vaccine ( season) 2024 10/21/2023, 01/03/2023, 06/08/2022, Additional history exists Albumin/Creatinine Ratio 08/23/2024 08/23/2023 DTap/Tdap Vaccines (1 - Tdap) 09/29/2024 Postponed from 1961 (Insurance/Financial) Zoster Vaccines (1 of 2) 09/29/2024 Pos tponed from 1992 (Patient Declined After Education) CKD HGB USE SMARTSET 82076 02/02/202502/02, 08/23/2023, 12/20/2022, Additional history exists GFR 02/26/2025 08/28/2024, 01/19, 08/23/2023, Additional history exists Depression Screening 03/21/2025 03/21/2024 CKD PHOS USE SMARTSET 85480 08/28/2025 10/0 06/2024, 08/03/2022, 11/19/2020 HbA1c 08/28/2025 [...] encounter Medical Devices Implanted Type Area Gear Grinder Device Identifier Shelf Expiration Date Model / Serial / Lot Lens 25.0 [id number] - [id number] - [id number] Implanted:Qty: 1 on 07/20/2018 by Ab Velazquez MD at OR [facility] Left: Eye [employer] 12/21/2019 [id number]-15.0 / [id number] / [id number] documented as of this encounter Advance Directives [...] and were consensually agreed upon. Care Teams Channel Installer Relationship Specialty Start Date End Date Sai Mason [facility] [address] [facility] [address] PCP - General 01/17/06 documented as of this encounter
[2024-11-29 08:05] LABS: Hematocrit (blood only) 24.7 % (42.0-52.0); Hemoglobin 7.8 g/dl (14.0-18.0); Mean Corpuscular Hemoglobin 28.3 pg (25.0-34.0); Mean Corpuscular Hgb Conc 31.6 g/dL (32.0-36.0); Mean Corpuscular Volume 89.5 fL (80.0-100.0); Mean Platelet Volume 11.4 fL (9.4-12.4); Platelet Count 129 K/uL (130-400); RDW Coefficient of Variation 15.2 % (11.5-14.5); RDW Standard Deviation 49.8 fL (36.4-46.3); Red Blood Count 2.76 M/uL (4.70-6.10); White Blood Count 10.43 K/ul (4.8-10.8)
[2024-11-29 08:19] LABS: BUN Creatinine Ratio 25.7 (10-20); Calcium 8.2 mg/dl (8.6-10.3); Creatinine Clr Calc Pharmacy 54.9 ml/min; Magnesium 1.7 mg/dl (1.7-2.4); Potassium 4.2 mmol/L (3.5-5.1)
[2024-11-29 08:26] LABS: Troponin I High Sensitivity 30.4 pg/ml (0-20)
[2024-11-29 08:34] LABS: Acanthocytes 1+; Basophils # (auto) 0.01 K/uL (0.00-0.20); Basophils % (auto) 0.1 %; Immature Granulocytes # (auto) 0.06 K/uL (0.01-0.20); Immature Granulocytes % (auto) 0.6 %; Lymphocytes # (auto) 0.33 K/uL (1.20-3.40); Lymphocytes % (auto) 3.2 %; Monocytes # (auto) 0.13 K/uL (0.11-0.59); Monocytes % (auto) 1.2 %; Neutrophils % (auto) 94.9 %; Ovalocytes 1+
--- NOTE | 2024-11-29 08:40 | Electrocardiogram Report ---
Test Reason : Blood Pressure : */* mmHG Vent. Rate : 91 BPM Atrial Rate : 91 BPM P-R Int : 182 ms QRS Dur : 98 ms QT Int : 356 ms P-R-T Axes : 32 57 69 degrees QTcB Int : 437 ms Normal sinus rhythm Poor R wave progression, consider anterior NJ vs. lead placement vs. LVH Diffuse Nonspecific ST abnormality Abnormal ECG When compared with ECG of 26-Sep-2024 04:55, PRWP now present Confirmed by Everett Ambriz ([id number]) on 11/29/2024 8:40:20 AM Referred By: REFERRED SELF Confirmed By: Everett Ambriz
[2024-11-29 08:57] LABS: Estimated Average Glucose 131 mg/dl; Hemoglobin A1C 6.2 % (4.5-5.6)
[2024-11-29] MEDS: CLOPIDOGREL BISULFATE 75 MG TAB PO SCH (09:02)
[2024-11-29] MEDS: dexAMETHasone 6 MG in SYRINGE 0 ML IV SCH (09:02)
[2024-11-29] MEDS: DOXYCYCLINE HYCLATE 100 MG CAP PO SCH (09:02)
[2024-11-29] MEDS: METOPROLOL SUCC 25MG EXT REL TAB PO SCH (09:03)
[2024-11-29] MEDS: PANTOprazole 40 MG TAB PO SCH (09:03)
--- NOTE | 2024-11-29 09:04 | Discharge Summary ---
Discharge Summary Date of Service November 29, 2024 Principal Dx & Hospital Course #1 = Principal Diagnosis (1) Acute exacerbation of chronic obstructive airways disease: (2) COVID-19: (3) CAD (coronary artery disease): Notes For Next Care Provider Medication Changes From Visit Decadron 6 mg daily for 10 days Admission HPI Per Admitting Provider 84-year-old male with past medical history significant for dyslipidemia, prediabetes, COPD, hypertension, moderate to severe aortic stenosis, systolic congestive heart failure, CKD stage III, macular degeneration of right eye lives at home with his was brought in because of flulike symptoms going on for last 1 week and shortness of breath and cough. He was treated with Z-Dhruv and prednisone but was not getting better. For EMS his oxygen saturation were high 80s and was placed on nasal cannula. Patient states that he probably contracted this from his spouse. Patient was initially admitted with impression of COPD exacerbation, I saw him and examined him in the ER, on examination he is on room air with saturation in the mid 90s, his chest x-ray is not quite impressive although he does seem to have a right middle lobe, at the cardiophrenic angle, his procalcitonin was negative, no leukocytosis or fever overnight, no suspicion of any bacterial component. He came back positive for COVID-19 so I think this is probably COVID-related, he has received 5 COVID vaccines so far. This is a mild form of COVID-19 disease may have precipitated COPD exacerbation but he does not have any wheezing or hypoxia. I only recommend Decadron 6 mg daily for 10 days, until then he has to self isolate. Patient can be discharged home with follow-up as outpatient. Discharge Exam Constitutional VITALS: Reviewed. WEIGHT/BMI reviewed. GEN: Healthy appearing, well-developed, NAD. CV: RRR, no m/r/g. LUNGS: Clear bilaterally, did not hear any wheeze or crackles. ABD: Soft, NT/ND, NBS, no masses or organomegaly. EXT: No clubbing, cyanosis, or edema. NEURO: No focal deficit, gait was not assessed. Cranial nerves are intact. Patient appears fully alert and awake and oriented Updated Medication List Medication Instructions Recorded Confirmed Type acetaminophen 500 mg tablet 1,000 mg PO Q6H PRN Pain 10/10/21 11/29/24 History (Tylenol Extra Strength) clopidogrel 75 mg tablet 75 mg PO DAILY 09/17/22 11/29/24 History metoprolol succinate 25 mg 25 mg PO QAM 09/17/22 11/29/24 History tablet,extended release 24 hr nitroglycerin 0.4 mg sublingual 0.4 mg sublingual UD PRN Chest Pain 09/17/22 11/29/24 History tablet ipratropium 0.5 mg-albuterol 3 mg 3 ml NEB Q6H PRN sob/wheezing #90 09/24/22 11/29/24 Rx (2.5 mg base)/3 mL nebulization mL soln atorvastatin 80 mg tablet 80 mg PO QPM 11/06/22 11/29/24 History hydrocortisone 2.5 % topical cream 1 applic [place] BID PRN irritation 11/30/22 11/29/24 History with perineal applicator pantoprazole 40 mg tablet,delayed 40 mg PO QAM 09/20/23 11/29/24 History release albuterol sulfate 2.5 mg/3 mL 2.5 mg continuous nebulization Q4 09/25/24 11/29/24 History (0.083 %) solution for nebulization PRN Wheezing benzonatate 100 mg capsule 100 mg PO TID PRN Cough 11/29/24 11/29/24 History dexamethasone 6 mg tablet 6 mg PO DAILY #10 tabs 11/29/24 Rx Hospital Stay Data Consultations 11/29/24 01:42 ED Decision to Admit Stat Pending Results Patient Have Any Pending Studies at Discharge: No Discharge Instructions Given to Patient (Per Discharging Provider) Patient to remain in self-isolation until 12/09/2024 He is recommended to take Decadron 6 mg daily until 12/09/2024 Total Time Total Time Spent Total Time Spent (In Minutes): More than 35 minutes
[2024-11-29] MEDS: ENOXAPARIN INJ 40 MG/0.4 ML SYR SQ SCH (09:05)
[2024-11-29 09:54] LABS: Iron < 10 mcg/dl (35-175); Total Iron Binding Cap Calc 374 mcg/dl (250-450); Transferrin 267 mg/dl (200-360)
[2024-11-29 10:09] LABS: Hematocrit (blood only) 24.8 % (42.0-52.0); Mean Corpuscular Hemoglobin 29.1 pg (25.0-34.0); Mean Corpuscular Hgb Conc 32.3 g/dL (32.0-36.0); Mean Corpuscular Volume 90.2 fL (80.0-100.0); Mean Platelet Volume 11.1 fL (9.4-12.4); Platelet Count 122 K/uL (130-400); RDW Coefficient of Variation 15.2 % (11.5-14.5); RDW Standard Deviation 49.6 fL (36.4-46.3); Red Blood Count 2.75 M/uL (4.70-6.10); White Blood Count 9.76 K/ul (4.8-10.8)
[2024-11-29 10:34] LABS: Folate (Folic Acid),Ser orPlas 4.85 ng/ml (>5.38)
[2024-11-29 12:06] VITALS: BP 118/61; PULSE 68; RESP 22; O2SAT 92
[2024-11-29] MEDS ORDERED: ATORVASTATIN 40 MG TAB PO SCH (21:00)
[2024-11-30] MEDS ORDERED: REMDESIVIR 100 MG in SODIUM CHLORIDE 0.9% 230 ML IV SCH (08:00)
== END 2024-11-29 13:49 | disposition home or self-care (01) | DRG 178 ==
LOC: ED 00:03 → EDINP 03:05 → INTOOBSV 03:28 → EDINP 03:52

== ENCOUNTER 2025-01-17 11:46 | Observation (INO) ==
--- NOTE | 2025-01-17 12:15 | Emergency Department Note ---
Impression & Plan Acute hypoxemic respiratory failure, Acute exacerbation of chronic obstructive airways disease ED Provider Note NAME: RO GREENE AGE: 84 SEX: M : 1940 ARRIVES VIA: Ambulance INFORMANT: Patient, ED PROVIDER(S): Eric Guzmán MD CHIEF COMPLAINT: Cough, dizziness, low oxygen MEDICAL DECISION MAKING: Patient presents due to concern for dyspnea. IV was established and blood work is obtained. Patient is 8889% on room air and was placed on supplemental nasal cannula 2 L. Patient was ordered Xopenex treatment and IV methylprednisolone. No history of heart failure and aortic stenosis send no fluids initially ordered. Patient denies any vomiting or diarrhea. Patient with a white count of 9. Hemoglobin at 9.4 which is fairly chronic. Platelet count is normal. Kidney function unremarkable. Urinalysis does not show evidence of infection. Chest x-ray does not show any acute findings. Patient did undergo an ambulatory trial and is 90 to 91%. At rest the patient was back to 88% was placed on 2 L nasal cannula. Another breathing treatment was ordered. I did speak the on-call hospitalist service Dr. Kay and the patient was admitted to medicine service. I did update the patient patient's at bedside of the findings they were in agreement with plan of care. After review of the information above and other included data, I feel the patient may be discharged home. Patient was given strict follow-up, discharge, and return precautions. All questions were answered. Patient was deemed suitable for outpatient follow-up at this time. Patient agreed with the plan of care and was discharged home. Critical Care: I have personally spent 42 minutes of critical care time in direct management of this patient. This includes bedside care, interpretation of diagnostic studies, and testing, discussion with consultants, patient, and family members, and other require inpatient management activities. This 42 minutes is in excess of all separately billable procedures. Discussion w/ other healthcare providers: Dr. Kay inpatient medicine service Prior /Outside records reviewed: I reviewed part of a discharge summary from November 29, 2024. Patient did have acute exacerbation of COPD COVID no history of CAD. Patient also with a history of moderate to severe aortic stenosis systolic CHF and CKD. Differential diagnosis: Reactive airway disease, pneumonia, pneumothorax, COPD, CHF, ACS, pulmonary embolism, musculoskeletal, GERD as well as other pathologies were considered. Diagnostics, as interpreted by me: ECG: Normal sinus rhythm, rate of 93, normal intervals, normal axis no ST elevations. Possible T wave abnormality in the lateral leads. No significant change for comparison November 29, 2024. Cardiac monitoring: An order was placed for continuous cardiac monitoring. The monitor shows a rate of 88 with sinus rhythm. Patient was placed on pulse oximetry Medical decision rules: None Imaging studies: I informally interpreted the patient's chest x-ray without evidence of obvious pneumonia with formal report to follow. HPI: Patient presents due to concern for dizziness as well as shortness of breath. Patient states that his had a cough for about a week in duration. The patient states that he was having some dizziness with coughing today. Nonproductive. Patient denies any known prior history of heart or lung disease. No falls or trauma. Patient reports that he has had some prior issues with his heart but was deemed not to be a surgical candidate as he was too high risk. Patient denies any smoking history. did report the patient's oxygen saturation was 83% at home today. PAST MEDICAL HISTORY: See Below PAST SURGICAL HISTORY: See Below SOCIAL HISTORY: See Below HOME MEDICATIONS: See Below ALLERGIES: See Below VITALS: See Below PHYSICAL EXAMINATION: GENERAL: NAD, non-toxic. EYE EXAM: Normal conjunctiva. PERRL, no anisocoria and EOM's grossly intact w/o pain. OROPHARYNX: Moist mucus membranes, grossly normal dentition. NECK: Trachea midline, no stridor. LUNGS: Coarse sounds of the bilateral bases with some associated wheezing in the upper lung bain. Normal chest wall mechanics. HEART: NSR, systolic ejection murmur. ABDOMEN: Abdomen soft, non-tender, no masses, no rebound or guarding. BACK: No CVA TTP. SKIN: No rashes and no bruising. UPPER EXTREMITIES: Upper extremities are grossly normal. LOWER EXTREMITIES: Grossly normal, no edema. NEURO EXAM: A&O x3, cranial nerves II-XII grossly intact, normal speech, moves all 4 extremities. Past Med/Surg History Problem List (Updated 01/17/25 @ 18:08 by Eric Guzmán MD) Acute hypoxemic respiratory failure (Acute) COVID-19 (Acute) Acute exacerbation of chronic obstructive airways disease (Acute) Community acquired pneumonia (Acute) Arm pain, left (Acute) Ischemic cardiomyopathy CAD (coronary artery disease) Non-ST elevation (NSTEMI) myocardial infarction 2020 Medical History Acute kidney injury superimposed on chronic kidney disease Moderate to severe aortic stenosis Dyslipidemia HTN (hypertension) with goal to be determined CKD (chronic kidney disease), stage III Surgical History History of cataract surgery S/P cardiac catheterization H/O lithotripsy Family History Sister Heart disease Brother Heart disease Social History Smoking Status: Former smoker Tobacco Type: Cigars Second Hand Exposure: No; Do You Dip or Chew Tobacco: No; Hx Alcohol Use: Yes Alcohol type: other Hx Substance Use: No Preferred Language: Arabic Communication Ability: Effective Communication Ability Comment: 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 Required: No Beliefs That Will Affect Care: None marital status: Current Living Situation: Spouse Current Living Situation Comment: lives at home with Feels Safe at Home: Yes Assistive Devices: Glasses Allergies Allergies Allergy/AdvReac Type Severity Reaction Status Date / Time No Known Allergies Allergy Unknown Verified 09/25/24 16:50 Home Meds Home Medications Medication Instructions Recorded Confirmed acetaminophen 500 mg tablet 1,000 mg PO Q6H PRN Pain 10/10/21 01/17/25 (Tylenol Extra Strength) clopidogrel 75 mg tablet 75 mg PO QAM 09/17/22 01/17/25 metoprolol succinate 25 mg 25 mg PO QAM 09/17/22 01/17/25 tablet,extended release 24 hr nitroglycerin 0.4 mg sublingual 0.4 mg sublingual UD PRN Chest Pain 09/17/22 01/17/25 tablet atorvastatin 80 mg tablet 80 mg PO QPM 11/06/22 01/17/25 hydrocortisone 2.5 % topical cream 1 applic [place] BID PRN irritation 11/30/22 01/17/25 with perineal applicator pantoprazole 40 mg tablet,delayed 40 mg PO QAM 09/20/23 01/17/25 release albuterol sulfate 2.5 mg/3 mL 2.5 mg continuous nebulization Q4 09/25/24 01/17/25 (0.083 %) solution for nebulization PRN Wheezing benzonatate 100 mg capsule 100 mg PO TID PRN Cough 11/29/24 01/17/25 PreserVision AREDS 1 cap PO QAM 01/17/25 01/17/25 diphenhydramine HCl 25 mg capsule 25 mg PO DAILY PRN Other 01/17/25 01/17/25 (Benadryl) gabapentin 300 mg capsule 300 mg PO DAILY 01/17/25 01/17/25 Results & Data (ED) Vital Signs Vital Signs - 24 hr 01/17/25 11:56 01/17/25 11:56 01/17/25 11:56 Temperature 36.7 C Temperature Source Oral Pulse Rate 90 Pulse Rate [Apical] Pulse Rate [Exercises] Pulse Rate [Recovery] Pulse Rate from SpO2 Sensor Respiratory Rate 22 Respiratory Rate [Exercises] Respiratory Rate [Recovery] Respiratory Effort / Characteristics Short of Breath Respiratory Depth Normal Normal Respiratory Pattern Regular Blood Pressure 152/88 H Blood Pressure [Right Arm] Blood Pressure Mean 109 Blood Pressure Mean [Right Arm] Pulse Oximetry 91 Pulse Oximetry [Exercises] Pulse Oximetry [Recovery] Oxygen Delivery Method Room Air Room Air Oxygen Flow Rate Sepsis Recent Fever Within 48 Hours No Sepsis New/Unexplained Change in Mental Status No Sepsis Action Taken by Nursing No Action Required 01/17/25 11:56 01/17/25 12:16 01/17/25 12:20 Temperature Temperature Source Pulse Rate 93 H Pulse Rate [Apical] Pulse Rate [Exercises] Pulse Rate [Recovery] Pulse Rate from SpO2 Sensor Respiratory Rate Respiratory Rate [Exercises] Respiratory Rate [Recovery] Respiratory Effort / Characteristics Respiratory Depth Normal Respiratory Pattern Blood Pressure Blood Pressure [Right Arm] Blood Pressure Mean Blood Pressure Mean [Right Arm] Pulse Oximetry 87 L Pulse Oximetry [Exercises] Pulse Oximetry [Recovery] Oxygen Delivery Method Room Air Oxygen Flow Rate Sepsis Recent Fever Within 48 Hours Sepsis New/Unexplained Change in Mental Status Sepsis Action Taken by Nursing 01/17/25 12:20 01/17/25 13:18 01/17/25 14:30 Temperature Temperature Source Pulse Rate 87 Pulse Rate [Apical] 88 Pulse Rate [Exercises] Pulse Rate [Recovery] Pulse Rate from SpO2 Sensor 86 Respiratory Rate 20 20 22 Respiratory Rate [Exercises] Respiratory Rate [Recovery] Respiratory Effort / Characteristics Respiratory Depth Normal Respiratory Pattern Blood Pressure 133/84 Blood Pressure [Right Arm] 120/69 Blood Pressure Mean 100 Blood Pressure Mean [Right Arm] 86 Pulse Oximetry 97 98 95 Pulse Oximetry [Exercises] Pulse Oximetry [Recovery] Oxygen Delivery Method Nasal Cannula Nasal Cannula Room Air Oxygen Flow Rate 2 2 Sepsis Recent Fever Within 48 Hours Sepsis New/Unexplained Change in Mental Status Sepsis Action Taken by Nursing 01/17/25 14:41 01/17/25 15:21 01/17/25 15:32 Temperature Temperature Source Pulse Rate 93 H Pulse Rate [Apical] Pulse Rate [Exercises] 95 H Pulse Rate [Recovery] 90 Pulse Rate from SpO2 Sensor 93 H Respiratory Rate 27 H Respiratory Rate [Exercises] 22 Respiratory Rate [Recovery] 24 Respiratory Effort / Characteristics Respiratory Depth Respiratory Pattern Blood Pressure Blood Pressure [Right Arm] Blood Pressure Mean 91 Blood Pressure Mean [Right Arm] Pulse Oximetry 97 Pulse Oximetry [Exercises] 91 Pulse Oximetry [Recovery] 90 Oxygen Delivery Method Room Air Nasal Cannula Oxygen Flow Rate 2 Sepsis Recent Fever Within 48 Hours Sepsis New/Unexplained Change in Mental Status Sepsis Action Taken by Nursing 01/17/25 15:34 01/17/25 15:39 01/17/25 15:52 Temperature Temperature Source Pulse Rate 98 H 95 H Pulse Rate [Apical] Pulse Rate [Exercises] Pulse Rate [Recovery] Pulse Rate from SpO2 Sensor 99 H Respiratory Rate 25 H Respiratory Rate [Exercises] Respiratory Rate [Recovery] Respiratory Effort / Characteristics Respiratory Depth Respiratory Pattern Blood Pressure 134/72 Blood Pressure [Right Arm] Blood Pressure Mean 79 Blood Pressure Mean [Right Arm] Pulse Oximetry Pulse Oximetry [Exercises] Pulse Oximetry [Recovery] Oxygen Delivery Method Oxygen Flow Rate Sepsis Recent Fever Within 48 Hours Sepsis New/Unexplained Change in Mental Status Sepsis Action Taken by [facility] Medications Current Medication List: was personally reviewed by me Laboratory Data Attestation: I reviewed the patient's lab results. 01/17/25 12:06 01/17/25 12:06 Lab Results 01/17/25 01/17/25 Range/Units 12:06 12:52 WBC 9.00 (4.8-10.8) K/ul RBC 3.43 L (4.70-6.10) M/uL Hgb 9.4 L (14.0-18.0) g/dl Hct 31.2 L (42.0-52.0) % MCV 91.0 (80.0-100.0) fL MCH 27.4 (25.0-34.0) pg MCHC 30.1 L (32.0-36.0) g/dL RDW Std Deviation 53.9 H (36.4-46.3) fL RDW Coeff of [place] 16.4 H (11.5-14.5) % Plt Count 135 (130-400) K/uL MPV 11.5 (9.4-12.4) fL Immature Gran % (Auto) 1.7 % Neut % (Auto) 86.6 % Lymph % (Auto) 5.4 % [place] % (Auto) 3.2 % Eos % (Auto) 2.8 % Baso % (Auto) 0.3 % Neut # (Auto) 7.79 H (1.40-6.50) K/uL Lymph # (Auto) 0.49 L (1.20-3.40) K/uL [place] # (Auto) 0.29 (0.11-0.59) K/uL Eos # (Auto) 0.25 (0.00-0.50) K/uL Baso # (Auto) 0.03 (0.00-0.20) K/uL Immature Gran # (Auto) 0.15 (0.01-0.20) K/uL PT 11.5 (9.0-12.0) Seconds INR 1.1 (0.9-1.1) APTT 25 (21-31) Seconds PTT Ratio 0.9 Sodium 141 (136-145) mmol/L Potassium 4.3 (3.5-5.1) mmol/L Chloride 107 (98-107) mmol/L Carbon Dioxide 29 (21-32) mmol/L Anion Gap 5 (3-11) BUN 18 (6-23) mg/dl Creatinine 0.92 (0.6-1.4) mg/dl Est Cr Clr Drug Dosing 63.9 ml/min eGFR 83.05 BUN/Creatinine Ratio 19.6 (10-20) Glucose 118 H (70-99(Fasting)) mg/dl Calcium 9.0 (8.6-10.3) mg/dl Magnesium 1.7 (1.7-2.4) mg/dl Total Bilirubin 0.8 (0.2-1.0) mg/dl AST 23 (13-39) U/L ALT 21 (7-52) U/L Alkaline Phosphatase 156 H (34-104) U/L Total Protein 6.7 (6.0-8.3) gm/dl Albumin 4.0 (3.4-5.0) gm/dl Globulin 2.7 (2.5-4.0) gm/dl Albumin/Globulin Ratio 1.5 (0.9-2) Procalcitonin 0.12 (0-0.5) ng/ml Urine Color Yellow Urine Appearance Clear (Clear) Urine pH 7.0 (4.5-7.5) Ur Specific [place] 1.017 (1.000-1.030) Urine Protein Trace H (Negative) Urine Glucose (UA) Negative (Negative) Urine Ketones Negative (Negative) Urine Blood Negative (Negative) Urine Nitrite Negative (Negative) Urine Bilirubin Negative (Negative) Urine Urobilinogen Negative (Negative) Ur Leukocyte Esterase Negative (Negative) Urine WBC (Auto) 0-5 (0-5) /hpf Urine RBC (Auto) 6-10 H (0-2) /hpf U Hyaline Cast (Auto) 0-2 (0-2) /lpf U Epithel Cells (Auto) 0-2 (0-2) /hpf Urine Bacteria (Auto) None Seen (None Seen) Adenovirus (PCR) Not Detected (NotDetected) B. pertussis DNA (PCR) Not Detected (NotDetected) B.parapertussis DNA PCR Not Detected (NotDetected) C. pneumoniae DNA (PCR) Not Detected (NotDetected) Coronavirus OC43 (PCR) Not Detected (NotDetected) Coronavirus HKU1 (PCR) Not Detected (NotDetected) Coronavirus 229E (PCR) Not Detected (NotDetected) SARS-CoV-2 (PCR) Not Detected (NotDetected) Coronavirus NL63 (PCR) Not Detected (NotDetected) Human Metapneumovir PCR Not Detected (NotDetected) Influenza Type A (PCR) Not Detected (NotDetected) Influenza Type B (PCR) Not Detected (NotDetected) M. pneumoniae (PCR) Not Detected (NotDetected) Parainfluenza 1 (PCR) Not Detected (NotDetected) Parainfluenza 2 (PCR) Not Detected (NotDetected) Parainfluenza 3 (PCR) Not Detected (NotDetected) Parainfluenza 4 (PCR) Not Detected (NotDetected) RSV (PCR) Not Detected (NotDetected) Entero/Rhino (PCR) Not Detected (NotDetected) Administered Medications Discontinued Medications Albuterol (Albut/Ipratrop 3mg/0.5mg Neb 3 Ml Vial) 3 ml NEB NOW STA; Protocol Stop: 01/17/25 14:52 Last Admin: 01/17/25 15:04 Dose: 3 ml Documented By: MMG Azithromycin (Azithromycin 250 Mg Tab) 500 mg PO NOW ONE Stop: 01/17/25 14:53 Last Admin: 01/17/25 15:04 Dose: 500 mg Documented By: MMG Levalbuterol HCl (Levalbuterol 1.25 Mg/3 Ml Neb) 1.25 mg NEB NOW STA Stop: 01/17/25 12:15 Last Admin: 01/17/25 12:47 Dose: 1.25 mg Documented By: ARS Methylprednisolone (Methylprednisolone 125 Mg/2 Ml Vial) 125 mg IV NOW STA Stop: 01/17/25 12:17 Last Admin: 01/17/25 12:46 Dose: 125 mg Documented By: ARS Imaging Data Radiologist's Impression: Chest X-Ray 01/17/25 12:14 XR chest 1V portable CLINICAL HISTORY: Dyspnea COMPARISON STUDY: 11/29/2024 FINDINGS: Heart size and pulmonary vasculature are normal. No effusion, consolidation, or pneumothorax. IMPRESSION: No acute findings. ACT 112: Negative or not required by law. Electronically signed by: David Whyte M.D. 01/17/2025 12:37 PM Discharge Plan Visit Data Chief Complaint: Shortness of Breath/Dyspnea ED Provider: Eric Guzmán Discharge Problem: Acute hypoxemic respiratory failure, Acute exacerbation of chronic obstructive airways disease Forms Stand Alone Forms: [employer] Prescriptions Prescriptions: No Action clopidogrel 75 mg tablet 75 mg PO QAM nitroglycerin 0.4 mg tablet, sublingual 0.4 mg sublingual UD PRN (Reason: Chest Pain) Rx Instructions: Take one nitro every 5 minutes up to three doses as needed for chest pain metoprolol succinate 25 mg tablet extended release 24 hr 25 mg PO QAM atorvastatin 80 mg tablet 80 mg PO QPM hydrocortisone 2.5 % cream with perineal applicator 1 applic FL BID PRN (Reason: irritation) pantoprazole 40 mg tablet,delayed release (DR/EC) 40 mg PO QAM acetaminophen [Tylenol Extra Strength] 500 mg Tablet 1,000 mg PO Q6H PRN (Reason: Pain) albuterol sulfate 2.5 mg /3 mL (0.083 %) solution for nebulization 2.5 mg continuous nebulization Q4 PRN (Reason: Wheezing) benzonatate 100 mg capsule 100 mg PO TID PRN (Reason: Cough) diphenhydramine HCl [Benadryl] 25 mg Capsule 25 mg PO DAILY PRN (Reason: Other) gabapentin 300 mg capsule 300 mg PO DAILY PreserVision AREDS 1 cap PO QAM Referrals Referrals: Sai Mason MD [Primary Care Provider] -
--- NOTE | 2025-01-17 12:39 | XRay Report ---
XR chest 1V portable CLINICAL HISTORY: Dyspnea COMPARISON STUDY: 11/29/2024 FINDINGS: Heart size and pulmonary vasculature are normal. No effusion, consolidation, or pneumothora x. IMPRESSION: No acute findings. ACT 112: Negative or not required by law. Electronically signed by: David Whyte M.D. 01/17/2025 12:37 PM
[2025-01-17] MEDS: methylPREDNISolone 125 MG/2 ML VIAL IV STA (12:46)
[2025-01-17] MEDS: LEVALBUTEROL 1.25 MG/3 ML NEB NEB STA (12:47)
[2025-01-17 13:00] LABS: Basophils # (auto) 0.03 K/uL (0.00-0.20); Basophils % (auto) 0.3 %; Eosinophils # (auto) 0.25 K/uL (0.00-0.50); Eosinophils % (auto) 2.8 %; Hematocrit (blood only) 31.2 % (42.0-52.0); Hemoglobin 9.4 g/dl (14.0-18.0); Immature Granulocytes # (auto) 0.15 K/uL (0.01-0.20); Immature Granulocytes % (auto) 1.7 %; Lymphocytes # (auto) 0.49 K/uL (1.20-3.40); Lymphocytes % (auto) 5.4 %; Mean Corpuscular Hemoglobin 27.4 pg (25.0-34.0); Mean Corpuscular Hgb Conc 30.1 g/dL (32.0-36.0); Mean Platelet Volume 11.5 fL (9.4-12.4); Monocytes # (auto) 0.29 K/uL (0.11-0.59); Monocytes % (auto) 3.2 %; Neutrophils # (auto) 7.79 K/uL (1.40-6.50); Neutrophils % (auto) 86.6 %; Platelet Count 135 K/uL (130-400); RDW Coefficient of Variation 16.4 % (11.5-14.5); RDW Standard Deviation 53.9 fL (36.4-46.3); Red Blood Count 3.43 M/uL (4.70-6.10)
[2025-01-17 13:04] LABS: Albumin Globulin Ratio 1.5 (0.9-2); BUN Creatinine Ratio 19.6 (10-20); Bilirubin,Total 0.8 mg/dl (0.2-1.0); Creatinine Clr Calc Pharmacy 63.9 ml/min; Globulin 2.7 gm/dl (2.5-4.0); Magnesium 1.7 mg/dl (1.7-2.4); Potassium 4.3 mmol/L (3.5-5.1); Total Protein 6.7 gm/dl (6.0-8.3)
[2025-01-17 13:21] LABS: INR 1.1 (0.9-1.1); Partial Thromboplastin Ratio 0.9; Partial Thromboplastin Time 25 Seconds (21-31); Prothrombin Time 11.5 Seconds (9.0-12.0)
[2025-01-17 13:35] LABS: Appearance Urine Clear (Clear); Bacteria Urine Automated None Seen (None Seen); Bilirubin Urine Negative (Negative); Blood Urine Negative (Negative); Cast Urine Automated 0-2 /lpf (0-2); Color Urine Yellow; Epithelial Cell Urine Auto 0-2 /hpf (0-2); Glucose Urine UA Negative (Negative); Ketones Urine Negative (Negative); Leukocyte Esterase Urine Negative (Negative); Nitrite Urine Negative (Negative); Protein Urine Trace (Negative); Specific Gravity Urine 1.017 (1.000-1.030); Urobilinogen Urine Negative (Negative); WBC Urine Automated 0-5 /hpf (0-5)
[2025-01-17 14:18] LABS: Adenovirus PCR Not Detected (NotDetected); Bordetella parapertussis PCR Not Detected (NotDetected); Bordetella pertussis PCR Not Detected (NotDetected); Chlamydia pneumoniae PCR Not Detected (NotDetected); Coronavirus 229E PCR Not Detected (NotDetected); Coronavirus CoV-2 (COVID19)PCR Not Detected (NotDetected); Coronavirus HKU1 PCR Not Detected (NotDetected); Coronavirus NL63 PCR Not Detected (NotDetected); Coronavirus OC43PCR Not Detected (NotDetected); Human Metapneumovirus PCR Not Detected (NotDetected); Influenza A PCR Not Detected (NotDetected); Influenza B PCR Not Detected (NotDetected); Mycoplasma pneumoniae PCR Not Detected (NotDetected); Parainfluenza Virus 1 PCR Not Detected (NotDetected); Parainfluenza Virus 2 PCR Not Detected (NotDetected); Parainfluenza Virus 3 PCR Not Detected (NotDetected); Parainfluenza Virus 4 PCR Not Detected (NotDetected); Respiratory Syncytial VirusPCR Not Detected (NotDetected); Rhinovirus/Enterovirus PCR Not Detected (NotDetected)
[2025-01-17] MEDS: ALBUT/IPRATROP 3MG/0.5MG NEB 3 ML VIAL NEB STA (15:04)
[2025-01-17] MEDS: AZITHROMYCIN 250 MG TAB PO ONE (15:04)
[2025-01-17] MEDS ORDERED: ACETAMINOPHEN 325 MG TAB PO PRN (15:45)
[2025-01-17] MEDS ORDERED: ALUMINUM/MAGNESIUM SUSP 30 ML UDC PO PRN (15:45)
[2025-01-17] MEDS ORDERED: ONDANSETRON INJ 2 MG/ML 2 ML VIAL IV PRN (15:45)
[2025-01-17] MEDS ORDERED: MAGNESIUM HYDROXIDE SUSP 30 ML UDC PO PRN (15:45)
[2025-01-17] MEDS ORDERED: NITROGLYCERIN SL 0.4 MG/TAB TAB SL PRN (15:56)
--- NOTE | 2025-01-17 15:57 | History & Physical Report ---
Date of Service January 17, 2025 Assessment & Plan (1) Acute exacerbation of chronic obstructive airways disease: Plan Mild COPD exacerbation: Patient presents with complaint of wheezing and progressive shortness of breath for last 2 days. Patient received breathing treatment/Solu-Medrol/azithromycin in the ED. Will continue with Solu-Medrol, breathing treatment and azithromycin. Patient needed 2 L oxygen at bedside exam, patient doesn't use oxygen at home. Likely will need two-step test tomorrow. Possible DC tomorrow on prednisone taper and azithromycin course. Other chronic medical conditions: Continue with/resume home meds as and when able. Chronic systolic CHF, patient appears euvolemic. NSTEMI, continue with statin/Plavix/Toprol Prediabetes: Follow A1c in AM. CKD stage III: Stable. Anemia chronic anemia: Hemoglobin at his baseline. 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 Patient denies any increase in cough or change in the color of the sputum. Patient has history of COPD. Patient apparently was saturating at 83% at home per discussion. Patient reports hearing some wheezes. Per discussion with the ED physician, patient was wheezing at exam at presentation, received azithromycin/breathing treatment/Solu-Medrol bolus in the ED. Patient denies any fever/sore throat/chest pain/weakness/acute changes in his appetite or bowel or bowel or bladder habit/nausea/vomiting. Patient denies smoking/alcohol/recreational drug use. Full code Medications reviewed with the patient at bedside. Plan of care discussed with the patient, he voiced understanding and was agreeable. Allergies Allergy/AdvReac Type Severity Reaction Status Date / Time No Known Allergies Allergy Unknown Verified 09/25/24 16:50 Home Medications Medication Instructions Recorded Confirmed Type acetaminophen 500 mg tablet 1,000 mg PO Q6H PRN Pain 10/10/21 01/17/25 History (Tylenol Extra Strength) clopidogrel 75 mg tablet 75 mg PO QAM 09/17/22 01/17/25 History metoprolol succinate 25 mg 25 mg PO QAM 09/17/22 01/17/25 History tablet,extended release 24 hr nitroglycerin 0.4 mg sublingual 0.4 mg sublingual UD PRN Chest Pain 09/17/22 01/17/25 History tablet atorvastatin 80 mg tablet 80 mg PO QPM 11/06/22 01/17/25 History hydrocortisone 2.5 % topical cream 1 applic [place] BID PRN irritation 11/30/22 01/17/25 History with perineal applicator pantoprazole 40 mg tablet,delayed 40 mg PO QAM 09/20/23 01/17/25 History release albuterol sulfate 2.5 mg/3 mL 2.5 mg continuous nebulization Q4 09/25/24 01/17/25 History (0.083 %) solution for nebulization PRN Wheezing benzonatate 100 mg capsule 100 mg PO TID PRN Cough 11/29/24 01/17/25 History PreserVision AREDS 1 cap PO QAM 01/17/25 01/17/25 History diphenhydramine HCl 25 mg capsule 25 mg PO DAILY PRN Other 01/17/25 01/17/25 History (Benadryl) gabapentin 300 mg capsule 300 mg PO DAILY 01/17/25 01/17/25 History Past Med/Surg History Problem List (Updated 12/30/24 @ 00:07 by Background Thao) COVID-19 (Acute) Acute exacerbation of chronic obstructive airways disease (Acute) Community acquired pneumonia (Acute) Arm pain, left (Acute) Ischemic cardiomyopathy CAD (coronary artery disease) Non-ST elevation (NSTEMI) myocardial infarction 2020 Medical History (Updated 12/30/24 @ 00:07 by Background Dadeana) Acute kidney injury superimposed on chronic kidney disease Moderate to severe aortic stenosis Dyslipidemia HTN (hypertension) with goal to be determined CKD (chronic kidney disease), stage III Surgical History History of cataract surgery S/P cardiac catheterization H/O lithotripsy Family History Sister Heart disease Brother Heart disease Social History Smoking Status: Former smoker Tobacco Type: Cigars Second Hand Exposure: No; Do You Dip or Chew Tobacco: No; Hx Alcohol Use: Yes Alcohol type: other Hx Substance Use: No Preferred Language: Sammarinese Communication Ability: Effective Communication Ability Comment: [facility] Executive Assistant To President Required: No Beliefs That Will Affect Care: None marital status: Current Living Situation: Spouse Current Living Situation Comment: lives at home with Feels Safe at Home: Yes Assistive Devices: Glasses Review of Systems Review of Systems: Negative otherwise mentioned in HPI. Physical Exam Physical Exam: GENERAL: Alert and oriented x3. NAD, on 2L NC O2. HEENT: No pallor, no icterus. Pupils equal, round and reactive to light. Oral mucosa moist. NECK: No JVD, no neck masses. HEART: S1 and S2 heard. Regular rate and rhythm. HR in 90s. No murmur, no gall op. RESPIRATORY SYSTEM: Normal AP diameter. No accessory muscle use. No wheezing, no crackles. decreased breath sounds b/l. ABDOMEN: Soft, bowel sounds present, nontender, no distention. CENTRAL NERVOUS SYSTEM: No facial droop. Speech is clear. Obeys simple commands. Moves extremities. EXTREMITIES: No edema, no erythema seen. Results & Data Results & Data Vital Signs (Past 12 Hours) Vital Signs Temp Pulse Pulse Pulse Pulse Resp Resp 01/17/25 14:41 95 H 90 22 01/17/25 14:30 87 22 01/17/25 13:18 88 20 01/17/25 12:20 20 01/17/25 12:20 01/17/25 12:16 93 H 01/17/25 11:56 01/17/25 11:56 36.7 C 90 22 Resp BP BP Pulse Ox Pulse Ox Pulse Ox O2 Del Method 01/17/25 14:41 24 91 90 Room Air 01/17/25 14:30 133/84 95 Room Air 01/17/25 13:18 120/69 98 Nasal Cannula 01/17/25 12:20 97 Nasal Cannula 01/17/25 12:20 87 L Room Air 01/17/25 12:16 01/17/25 11:56 Room Air 01/17/25 11:56 152/88 H 91 Room Air O2 Flow Rate 01/17/25 14:41 01/17/25 14:30 01/17/25 13:18 2 01/17/25 12:20 2 01/17/25 12:20 01/17/25 12:16 01/17/25 11:56 01/17/25 11:56
--- OUTSIDE RECORDS SUMMARY | 2025-01-17 16:54 | External Medical Summary | Summary of Care ---
Author Name Unknown Organization [facility] Address [address] [facility] [place] [address] Phone [phone] Care Team Providers Care Geospatial Imagery Intelligence Analyst Name Role Phone Sai Mason MD Primary Care Provider +1- [phone] Reason for Visit * Reason Onset Date Comments Med Request 12/26/2024 Encounter Details Date Type Department Care Team (Late st Contact Info) Description 12/26/2024 Telephone [facility] [address] [facility] [place] [address] March, Eric Hernadnez MD [address] [facility] [place] [id number] Med Request Allergies No known active allergiesdocumented as of this encounter (statuses as of 01/08/2025) Medications Acetaminophen 500 MG Oral Tablet (Tylenol) Take 2 Tablets by mouth every 6 hours as needed. Active Albuterol Sulfate (2.5 MG/3ML) 0.083% Inhalation Nebulization Solution (Proventil)Indicat ions:Bronchitis, complicated Inhale 1 Vial via nebulizer every 4 hours as needed for Wheezing. 24 mL 3 09/26/20 23 Active Ipratropium-Albute rol 0.5-2.5 (3) MG/3ML Inhalation Solution (Duoneb)Indication s:COPD, group B, by GOLD 2017 classification (HCC),Restrictive lung disease Inhale 3 mL by mouth every 6 hours as needed for Shortness of Breath. 120 mL 1 03/21/20 24 Active Montelukast Sodium 10 MG Oral Tablet (Singulair)Indicat ions:COPD, group B, by GOLD 2017 classification ([facility]),Restrictive lung disease Take 1 Tablet by mouth in the morning. (Mucus and cough). 30 Tablet 03/21/20 24 Active Additional Information Patient not taking.Reported on 12/24/2024 Pantoprazole Sodium 40 MG Oral Tablet Delayed [...] Cough. 90 Capsule 1 10/04/20 24 Active Additional Information Patient not taking.Reported on 12/24/2024 Nitroglycerin 0.4 MG Sublingual Tablet Sublingual (Nitrostat)Indicat ions:Chronic systolic congestive heart failure ([facility]) Place 1 Tablet under the tongue every 5 minutes as needed for Pain, Chest. up to 3 doses in 15 minutes 25 Tablet 3 11/27/19 25 Active Atorvastatin Calcium 80 MG Oral Tablet (Lipitor) TAKE 1 TABLET EVERY AFTERNOON 90 Tablet 2 12/24/19 25 Active Famotidine 20 MG Oral Tablet (Pepcid)Indication s:Rash and nonspecific skin eruption Take 1 Tablet by mouth in the morning. 30 Tablet 12/24/19 25 Active Triamcinolone Acetonide 0.1 % External Cream (Aristocort)Indica tions:Rash and nonspecific skin eruption Apply topically to affected area 2 times a day. To affected area. 160 g 1 12/27/19 25 Active predniSONE 20 MG Oral Tablet (Deltasone)Indicat ions:Rash and nonspecific skin eruption Take 2 Tablets by mouth in the morning for 5 days. 10 Tablet 12/24/19 25 025 Triamcinolone Acetonide 0.1 % External Cream (Aristocort)Indica tions:Rash and nonspecific skin eruption Apply topically to affected area 2 times a day. To affected area. 80 g 1 12/24/19 25 025 Discontinu ed(Refill) documented as of this encounter (statuses as of 01/08/2025) Active Problems Problem Noted Date Diagnosed Date Pancytopenia 12/24/2024 Chronic systolic congestive heart failure 2023 COPD, [...] as of this encounter (statuses as of 01/08/2025) Resolved Problems Problem Noted Date Diagnosed Date [...] as of this encounter (statuses as of 01/08/2025) Immunizations Name Administration Dates Next Due COVID-19 mRNA, LNP-s, No Pre serve, 2-Dose Series ([employer]) 10/30/2021,02/16/2021,01/21/2021 COVID-19, LNP-s, No Preserve , Carroll-sucrose, Ages 12+ ([employer]) 06/08/2022 Covid-19, Mrna, Lnp-s, Pf, B ivalent, 30 Mcg, IM, 12 yrs and above ([employer]) 01/03/2023 Pneumococcal Conjugate Vacci ne, 20-valent ([id number]) 11/19/2022 Season Influenza, Quad, PF, Adjuvanted, 65+ [...] 08/28/2024 Does the household have a re lar source of income? (Household - for ages [...] ages 0-17 years) Not on file 08/28/2024 Food Insecurity Answer Date Recorded Within the past 12 months, y ou worried that your food would run out before you got the money to buy more. Never true 08/28/20 24 Within the past 12 months, t he food you bought just didn't last and you didn't have money to get more. Never true 08/28/2024 Do you need food for this week? No 08/28/2024 Sex and Gender Information Value Date [...] 11:40 PM EDT Alejo Menezes RN documented as of this encounter Mental Status * Because of a physical, mental, or emotional condition, do you have serious difficulty concentrating, remembering, or making decisions? (5 years old or older) Answer Entry Date Author No 05/15/2021 11:40 PM Alejo Cadena RN documented in this encounter Miscellaneous Notes * Telephone Encounter - Dejah Russ OSA - 12/28/2024 1:14 PM EST Pts , Tiffanie, calling to advise that she paid for the extra tube out of pocket so nothing further is needed from our office. She will let us know otherwise. Tiffanie can be reached at [phone] * Telephone Encounter - Pina Em LPN - 12/28/2024 9:45 AM EST Attempted to call patient, there was no answer, left voicemail. When patient returns call, ok for NIKKIE to relay message, please refer to below documentation. If needed, can transfer to dedicated nurse line. * Telephone Encounter - Sai Mason MD - 12/27/2024 5:16 PM EST I don't know - I think that 80 g is the largest size. They could try to use more sparingly. I can try to send a prescription for 2 tubes (160 g) but I am not sure if that will help. * Telephone Encounter - Janine Sneed PHARM Tech - 12/26/2024 9:15 AM EST Pt's ec called stating that she went to get Triamcinolone Acetonide refilled due to having half of the tube left and the pharmacy told her it cannot be refilled until 01-08-25, pt's ec asking what they can do to get it earlier due to the rash is large, please advise. Asking for a call back at [phone] Thank you, [facility] 12/26/2024, 9:16 AM documented in this encounter Plan of Treatment Upcoming Encounters Date Type Department Care Team (Late st Contact Info) Description 02/08/2025 12:00 PM EDT Imaging Radiology [facility]st [facility] [address] [place] [phone] 03/05/2025 4:00 PM EDT Office Visit [facility] [place], Tatiana Saez [address] [place] [phone] Sai Mason MD [address] [place] [address] 05/15/2025 8:30 AM EDT Cardiac Studies Cardiac Studies, [facility] [address] [place] [address] 05/15/2025 9:30 AM EDT Office Visit Cardiology, [facility] [address] [place] [address] Sj Hansen MD [address] [place] [address] Health Maintenance Due Date Last Done Comments Alpha-1 Antitrypsin 1960 DTap/Tdap Vaccines (1 - Tdap) 1961 Zoster Vaccines (1 of 2) 1992 Adult Wellness Visit 2008 COVID-19 Vaccine (2023- season) 2024 10/21/2023, 01/03/2023, 06/08/2022, Additional history exists Albumin/Creatinine Ratio 08/23/2024 08/23/2023 GFR 02/26/2025 08/28/2024, 01/19, 08/23/2023, Additional history exists Depression Screening 03/21/2025 03/21/2024 CKD PHOS USE SMARTSET 68834 08/28/2025 10/0 06/2024, 08/03/2022, 11/19/2020 HbA1c 08/28/2025 08/28/2024, 01/19, 08/23/2023, Additional history exists CKD HGB USE SMARTSET 35039 10/04/202510/04, 02/03/2024, 08/23/2023, Additional history exists O2 [...] on patient's age to complete this topic Meningitis B Vaccine (Bexsero/Trumemba) Aged Out No longer eligible based on patient's age to complete this topic documented as of this encounter Medical Devices Implanted Type Area Branch Service Specialist Device Identifier Shelf Expiration Date Model / Serial / Lot Lens 25.0 Mx60e - [id number] - [id number] Implanted:Qty: 1 on 07/20/2018 by Ab Velazquez MD at [facility] Left: Eye [employer] 12/21/2019 [id number]-12.0 / [id number] / [id number] documented as of this encounter Visit Diagnoses Diagnosis Rash and nonspecific skin eruption Rash and other nonspecific skin eruption documented in this encounter Advance Directives * [...] and were consensually agreed upon. Care Teams Geospatial Imagery Intelligence Analyst Relationship Specialty Start Date End Date Sai Mason MD PCP - General 01/17/06 documented as of this encounter
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
--- OUTSIDE RECORDS SUMMARY | 2025-01-17 16:54 | External Medical Summary | Summary of Care ---
Author Name Unknown Organization [facility] Address [address] [facility] [place] [address] Phone [phone] Care Team Providers Care C 40A Crew Chief Name Role Phone Sai Mason MD Primary Care Provider +1- [phone] Reason for Visit * Reason Onset Date Comments Hospital Follow-Up 11/30/2024 [facility] ([facility]) Encounter Details Date Type Department Care Team ([facility] st Contact Info) Description 11/30/2024 Telephone [facility] [address] [place] [address] Yoly Berg, ANNA Hospital Follow-Up ([facility] ([facility])) Allergies No known active allergiesdocumented as of this encounter (statuses as of 11/30/2024) Medications Acetaminophen 500 MG Oral Tablet (Tylenol) [...] group B, by GOLD 2017 classification ([facility]),Restrictive lung disease Inhale 3 mL by mouth every 6 hours as needed for Shortness of Breath. 120 mL 1 4 Active Montelukast Sodium 10 MG Oral Tablet (Singulair)Indicat ions:COPD, group B, by GOLD 2017 classification ([facility]),Restrictive lung disease Take 1 Tablet by mouth [...] for Cough. 90 Capsule 1 4 Active Nitroglycerin 0.4 MG Sublingual Tablet Sublingual (Nitrostat)Indicat ions:Chronic systolic congestive heart failure ([facility]) Place 1 Tablet under the tongue every 5 minutes as needed for Pain, Chest. up to 3 doses in 15 minutes 25 Tablet 3 5 Active dexAMETHasone 6 MG Oral Tablet (Decadron) Take 1 Tablet by mouth in the morning. 5 Active documented as of this encounter (statuses as of 11/30/2024) Active Problems Problem Noted Date Diagnosed Date [...] as of this encounter (statuses as of 11/30/2024) Resolved Problems Problem Noted Date Diagnosed Date [...] as of this encounter (statuses as of 11/30/2024) Immunizations Name Administration Dates Next Due COVID-19 mRNA, LNP-s, No Pre serve, 2-Dose Series ([employer]) 10/30/2021,02/16/2021,01/21/2021 COVID-19, LNP-s, No Preserve , Carroll-sucrose, Ages 12+ ([employer]) 06/08/2022 Covid-19, Mrna, Lnp-s, Pf, B ivalent, 30 Mcg, IM, 12 yrs and above (Pfizer) 01/03/2023 Pneumococcal Conjugate Vacci ne, 20-valent ([id number]) 11/19/2022 Season Influenza, Quad, PF, Adjuvanted, 65+ [...] 05/15/2021 11:40 PM EDAlejo Atwood RN * Are you blind or do you have serious difficulty seeing, even when wearing glasses? Answer Date of Assessment Author No 05/15/2021 11:40 PM ZIGGYT Alejo Menezes RN * Do you have [...] Date Author No 05/15/2021 11:40 PM EDT Quiteh, Jamesetta, RN documented in this encounter Miscellaneous Notes * Telephone Encounter - Yoly Berg RN - 11/30/2024 11:00 AM EST Transitions of Care Note Reason for Referral:Recent Admission Phone visit for follow up: ADDY Admitted to: [facility], Date: 11/29/2024 Discharged to: Home, Date: 11/29/2024 Diagnosis driving hospitalization: COPD with Mild Exacerbation, COVID -19 Source/Contact: Patient's spouse SUBJECTIVE Consent: Verbal consent for review of hospital discharge: Yes REVIEW OF SYSTEMS Patient/Other Reports: Current patient/caregiver problems or concerns: No concerns, doing much better CV: Denies problems Pulmonary: Denies problems Chills/Sweats/Fever:Denies chills/sweats Denies fever Appetite:Denies problems such as nausea, vomiting, burning, decreased appetite Current diet: Carb consistent Bowel: denies problems Bladder: denies problems Wound (If applicable): N/A Pain:Denies Sleep:Denies problems FUNCTIONAL STATUS: ADL'S: Needs Assistance With:N/A as pt is independent IADL'S: Needs Assistance With:N/A as pt is independent Cognitive and Mental Health: denies problems, alert and oriented x 3, and able to communicate, understand instructions, process information. MEDICATION RECONCILIATION Medications: Discharge med list reviewed with patient or caregiver New medications: Dexamethasone ASSESSMENT Medication Risk Assessment: No risks identified Did patient fail outpatient treatment? No Discharge instructions available for review? Yes PLAN Symptom Monitoring Interventions:Member/caregiver education - signs and symptoms to contact PrimaryCare (DO NOT DELETE-Three west symptoms patient is to report to PCP) 1. Chest Pain/SOB 2. Fever/chills 3. Any worsening symptoms Set Up OperatorLadle Repairman of Care interventions/Action Plan: 5 - 7 day follow-up with PCP in place - Date: PCP appointment 12/06/2024 Educated on role of ADDY completed with [...] education this visit: Verbal, Confirmed PCP appointment 12/06/2024, addressed reasons to call sooner as above Plan to instructed to call Primary Care Provider with change in symptoms or as needed before next follow-up, discharge needs met, verbalizes understanding and agrees with plan. Yoly Berg, RN documented in this encounter Plan of Treatment Upcoming Encounters Date Type Department Care Team (Late st Contact Info) Description 12/06/2024 3:00 PM EST Office Visit [facility] [place] Michelle Saez [address] [facility] [place] [phone] Sai Mason MD [address] [facility] [place] [address] 02/08/2025 12:00 PM EDT Imaging Radiology [address] [place] [address] 03/05/2025 4:00 PM EDT Office Visit [facility] [place] [facility] [address] [facility] [place] [phone] Sai Mason MD [address] [facility] [place] [address] 05/15/2025 8:30 AM EDT Cardiac Studies Cardiac Studies, [address] [place] [address] 05/15/2025 9:30 AM EDT Office Visit Cardiology, [facility] [address] [facility] [place] [address] Sj Hansen MD [address] [place] [address] Health Maintenance Due Date Last Done Comments Alpha-1 Antitrypsin 1960 DTap/Tdap Vaccines (1 - Tdap) 1961 Zoster Vaccines (1 of 2) 1992 Adult Wellness Visit 2008 COVID-19 Vaccine ( season) 2024 10/21/2023, 01/03/2023, 06/08/2022, Additional history exists Albumin/Creatinine Ratio 08/23/2024 08/23/2023 GFR 02/26/2025 08/28/2024, 01/19, 08/23/2023, Additional history exists Depression Screening 03/21/2025 03/21/2024 CKD PHOS USE SMARTSET 81640 08/28/2025 10/0 06/2024, 08/03/2022, 11/19/2020 HbA1c 08/28/2025 08/28/2024, 01/19, 08/23/2023, Additional history exists CKD HGB USE SMARTSET 98197 10/04/202510/04, 02/03/2024, 08/23/2023, Additional history exists O2 [...] this encounter Medical Devices Implanted Type Area Milk Receiver Device Identifier Shelf Expiration Date Model / Serial / Lot Lens 25.0 Mx60e - [id number] - [id number] Implanted:Qty: 1 on 07/20/2018 by Ab Velazquez MD at OR [facility] Left: Eye [employer] LOM[employer] 12/21/2019 [id number]-62.0 / [id number] / [id number] documented as of this encounter Advance Directives [...] and were consensually agreed upon. Care Teams C 40A Crew Chief Relationship Specialty Start Date End Date Sai Mason MD PCP - General 01/17/06 documented as of this encounter
--- OUTSIDE RECORDS SUMMARY | 2025-01-17 16:54 | External Medical Summary | Summary of Care ---
Author Name Unknown Organization [facility] Address [address] [facility] [place] [address] Phone [phone] Care Team Providers Care Tobacco Curer Name Role Phone Margarita Hurley MD Primary Care Provider [phone]- [phone] Reason for Visit * Reason Comments eRx-Medication Refill Encounter Details Date Type Department Care Team (Late st Contact Info) Description 12/23/2024 Refill [facility] [address] [facility] [place] [phone] Margarita Hurley MD [address] [place], [place] [id number] Allergies No known active allergiesdocumented as of this encounter (statuses as of 12/25/2024) Medications Acetaminophen 500 MG Oral Tablet (Tylenol) Take 2 Tablets by mouth every 6 hours as needed. Active Albuterol Sulfate (2.5 MG/3ML) 0.083% Inhalation Nebulization Solution (Proventil)Indica tions:Bronchitis, complicated Inhale 1 Vial via nebulizer every 4 hours as needed for Wheezing. 24 mL 3 023 Active Ipratropium-Albut sg 0.5-2.5 (3) MG/3ML Inhalation Solution (Duoneb)Indicatio ns:COPD, group B, by GOLD 2017 classification (HCC),Restrictive [...] (Mucus and cough). 30 Tablet 024 Active Additional Information Patient not taking.Reported on [...] for Cough. 90 Capsule 1 024 Active Additional Information Patient not taking.Reported on 12/24/2024 Nitroglycerin 0.4 MG Sublingual Tablet Sublingual (Nitrostat)Indica tions:Chronic systolic congestive heart failure ([facility]) Place 1 Tablet under the tongue every 5 minutes as needed for Pain, Chest. up to 3 doses in 15 minutes 25 Tablet 3 025 Active Atorvastatin Calcium 80 MG Oral Tablet (Lipitor) TAKE 1 TABLET EVERY AFTERNOON 90 Tablet 2 025 Active Atorvastatin Calcium 80 MG Oral Tablet (Lipitor) Take 1 Tablet by mouth every afternoon. 90 Tablet 3 024 2024 Discontinued documented as of this encounter (statuses as of 12/25/2024) Active Problems Problem Noted Date Diagnosed Date [...] as of this encounter (statuses as of 12/25/2024) Resolved Problems Problem Noted Date Diagnosed Date [...] as of this encounter (statuses as of 12/25/2024) Immunizations Name Administration Dates Next Due COVID-19 mRNA, LNP-s, No Pre serve, 2-Dose Series (GoAlbert) 10/30/2021,02/16/2021,01/21/2021 COVID-19, LNP-s, No Preserve , Carroll-sucrose, Ages 12+ (Pfizer) 06/08/2022 Covid-19, Mrna, Lnp-s, Pf, B ivalent, 30 Mcg, IM, 12 yrs and above (Pfizer) 01/03/2023 Pneumococcal Conjugate Vacci ne, 20-valent ([id number]) 11/19/2022 Season Influenza, Quad, PF, Adjuvanted, 65+ [...] No 08/28/2024 Does the household have a [facility] source of income? (Household - for ages [...] 05/15/2021 11:40 PM Alejo Cadena RN * Are you blind or do you have serious difficulty seeing, even when wearing glasses? Answer Date of Assessment Author No 05/15/2021 11:40 PM Alejo Cadena, ANNA * Do you have serious difficulty walking or climbing stairs? (5 years old or older) Answer Date of Assessment Author No 05/15/2021 11:40 PM Alejo Cadena, ANNA * Do you have difficulty dressing or [...] Author No 05/15/2021 11:40 PM Alejo Cadena, RN documented as of this encounter Mental Status * Because of a physical, mental, or emotional condition, do you have serious difficulty concentrating, remembering, or making decisions? (5 years old or older) Answer Entry Date Author No 05/15/2021 11:40 PM EDT Alejo Menezes RN documented in this encounter Miscellaneous Notes * Telephone Encounter - Norma Barrera [facility] - 12/24/2024 3:21 PM ESTSigned Prescriptions: Disp Refills Atorvastatin Calcium 80 MG Oral Tablet (Li*90 Tab*2 Sig: TAKE 1 TABLET EVERY AFTERNOONAuthorizing Provider: MARGARITA HURLEY User: NORMA BARRERA----- documented in this encounter Plan of Treatment Upcoming Encounters Date Type Department Care Team (Late st Contact Info) Description 02/08/2025 12:00 PM EDT Imaging Radiology [address] [facility] [place] [phone] 03/05/2025 4:00 PM EDT Office Visit [address] [phone] Margarita Hurley MD [address] [place] [address] 05/15/2025 8:30 AM EDT Cardiac Studies Cardiac Studies, [facility] 132 [facility] [place] [address] 05/15/2025 9:30 AM EDT Office Visit Cardiology, [facility] 132 [facility] [place] [address] Sj Hansen MD [address] [place] [address] Health Maintenance Due Date Last Done Comments Alpha-1 Antitrypsin 1960 DTap/Tdap Vaccines (1 - Tdap) 1961 Zoster Vaccines (1 of 2) 1992 Adult Wellness Visit 2008 COVID-19 Vaccine ( season) 2024 10/21/2023, 01/03/2023, 06/08/2022, Additional history exists Albumin/Creatinine Ratio 08/23/2024 08/23/2023 GFR 02/26/2025 08/28/2024, 01/19, 08/23/2023, Additional history exists Depression Screening 03/21/2025 03/21/2024 CKD PHOS USE SMARTSET 52122 08/28/2025 10/0 06/2024, 08/03/2022, 11/19/2020 HbA1c 08/28/2025 08/28/2024, 01/19, 08/23/2023, Additional history exists CKD HGB USE SMARTSET 05697 10/04/202510/04, 02/03/2024, 08/23/2023, Additional history exists O2 [...] this encounter Medical Devices Implanted Type Area Rampman Device Identifier Shelf Expiration Date Model / Serial / Lot Lens 25.0 Mx60e - [id number] - [id number] Implanted:Qty: 1 on 07/20/2018 by Ab Velazquez MD at [facility] Left: Eye [employer] LOMB 12/21/2019 [id number] / [id number] documented as of this encounter Advance Directives [...] and were consensually agreed upon. Care Teams Tobacco Curer Relationship Specialty Start Date End Date Margarita Hurley MD PCP - General 01/17/06 documented as of this encounter
--- OUTSIDE RECORDS SUMMARY | 2025-01-17 16:54 | External Medical Summary | Summary of Care ---
Author Name Unknown Organization [facility] Address [address] [facility] [place] [address] Phone [phone] Care Team Providers Care Tire Setter Name Role Phone Sai Mason MD Primary Care Provider +1- [phone] Reason for Visit * Reason Comments Acute Rash, mostly on tors o, started last Tuesday, very itchy-was on 3 different antibiotics for URI Encounter Details Date Type Department Care Team (Latest Contact Info) Description 12/24/2024 2:40 PM EST [facility] [address] [place] [phone] MarchEric MD [address] [place] [address] Rash and nonspecific skin eruption*; Stage 3a chronic kidney disease (HCC); COPD, group B, by GOLD 2017 classification ([facility]); Chronic systolic congestive heart failure (HCC); 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 120 mL 1 024 Active Montelukast Sodium 10 MG Oral Tablet (Singulair)Indica tions:COPD, group B, by GOLD 2017 classification ([facility]),Restrictive lung disease Take 1 Tablet [...] (Nitrostat)Indica tions:Chronic systolic congestive heart failure ([facility]) Place 1 Tablet under the tongue every 5 minutes as needed for Pain, Chest. up to 3 doses in 15 minutes 25 Tablet 3 025 Active predniSONE 20 MG Oral Tablet (Deltasone)Indica tions:Rash and nonspecific skin eruption Take 2 Tablets by mouth in the morning for 5 days. 10 Tablet 025 2024 Active Famotidine 20 MG Oral Tablet (Pepcid)Indicatio ns:Rash and nonspecific skin eruption Take 1 Tablet by mouth in the morning. 30 Tablet 025 Active Triamcinolone Acetonide 0.1 % External Cream (Aristocort)Indic ations:Rash and nonspecific skin eruption Apply topically to affected area 2 times a day. To affected area. 80 g 1 025 Active Atorvastatin Calcium 80 MG Oral Tablet (Lipitor) Take 1 Tablet by mouth every afternoon. 90 Tablet 3 024 2024 Discontinued dexAMETHasone 6 MG Oral Tablet (Decadron) Take 1 Tablet by mouth in the morning. 025 2024 Discontinued documented as of this encounter [...] mRNA, LNP-s, No Pre serve, 2-Dose Series ([employer]) 10/30/2021,02/16/2021,01/21/2021 COVID-19, LNP-s, No Preserve , Carroll-sucrose, Ages 12+ (Pfizer) 06/08/2022 Covid-19, Mrna, Lnp-s, Pf, B ivalent, 30 Mcg, IM, 12 yrs and above (Pfizer) 01/03/2023 Pneumococcal Conjugate Vacci ne, 20-valent ([id number]) 11/19/2022 Season Influenza, Quad, PF, Adjuvanted, 65+ [...] Sign Reading Time Taken Comments Blood Pressure 108/62 12/24/2024 2:27 PM EST Pulse 82 12/24/2024 2:27 PM EST Temperature 36.7 C (98.1 F) 12/24/2024 2:27 PM ES T Respiratory Rate 16 12/24/2024 2:27 PM EST Oxygen Saturation - - Inhaled Oxygen Concentration - - Weight 83 kg (183 lb) 12/24/2024 2:27 PM EST Height - - Body Mass Index 28.66 11/20/2024 9:56 AM EST documented in this [...] EDAlejo Atwood RN documented in this encounter Progress Notes * Eric Dsouza MD - 12/24/2024 2:34 PM EST Images from the original note were not included. Subjective Jt Little is a 84 year old male that presents for Acute (Rash, mostly on torso, startedlast Tuesday, very itchy-was on 3 different antibiotics for URI ) History of Present Illness Jt Dean Little is an 84 year old male with COPD, hypertension, systolic congestive heart failure, and dyslipidemia who presents with a rash. The rash began last Tuesday and is primarily located around his waist, back, and groin. It was initially associated with significant itching, leading to scratching. The rash is warm to the touch but is not currently itching. He has been taking Benadryl at night for the past two nights, which has helped reduce the itching. He also uses a cream prescribed for crotch itch on particularly bothersome spots. He was recently treated for pneumonia and tested positive for COVID-19 on November 29, after which he received breathing treatments and IV fluids in the emergency room. He completed a course of steroids and antibiotics prescribed on November 20. He reports feeling better after the treatment untilthe rash appeared. He has been consuming raspberry-flavored gummies containing mullein for respiratory and lung function for the past four months. He has not changed his laundry detergent, shower soaps, shampoos, or shaving cream, and he has been eating bananas daily for about a month. He is not a big breakfast eater. He smokes. Objective Vitals: 12/24/24 1427 Temp: 98.1 F (36.7 C) Pulse: 82 Resp: 16 BP: 108/62 Physical Exam SKIN: Rash on chest, waist, back, and foot, warm to the touch, indicative of inflammation. Rash absent in groin, legs, under arms, and behind knees. I have reviewed the following results: Results LABS COVID-19: positive (11/29/2024) RADIOLOGY Chest X-ray: pneumonia (11/29/2024) Assessment and Plan Assessment & Plan Rash New onset, pruritic, warm, and widespread rash of unclear etiology. The rash started approximately one week after completing a course of antibiotics and steroids for pneumonia and COVID-19. The timing makes it unlikely to be a drug reaction - may be covid related. The patient has been using [id number] antifungal cream and Benadryl with some relief. -Start Prednisone 40mg daily for 5 days. -Apply Triamcinolone cream twice daily for up to 14 days. -Continue Benadryl at night. -Start Pepcid 20mg daily. -No need for fungal cream. -If no improvement in 14 days, consider dermatology referral or biopsy. COPD Recent exacerbation treated with steroids and antibiotics. -Continue current management. Hypertension, Systolic Congestive Heart Failure, Dyslipidemia No acute issues discussed. -Continue current management. Rash and nonspecific skin eruption (Primary) - predniSONE 20 MG Oral Tablet (Deltasone); Take 2 Tablets by mouth in the morning for 5 days. - Famotidine 20 MG Oral Tablet (Pepcid); Take 1 Tablet by mouth in the morning. - Triamcinolone Acetonide 0.1 % External Cream (Aristocort); Apply topically to affected area 2 times a day. To affected area. Stage 3a chronic kidney disease (HCC) - Stable creatinine since 2023 with GFR 70+ COPD, group B, by GOLD 2017 classification ([facility]) - stable respiratory status, continue duonebs prn Chronic systolic congestive heart failure (HCC) - EF of 45%, on beta radha, atorvastatin. Continue to follow yearly with cardiology. 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 Text in this note was generated using an ambient documentation service. I discussed the use of a device to record and summarize our discussion today. All persons present during the encounter consented to its use. documented in this encounter Nursing Notes * Bella Blas LPN - 12/24/2024 2:27 PM EST The patient has been properly identified by confirmation of name and date of . Chief Complaint Patient presents with Acute Rash, mostly on torso, started last Tuesday, very itchy-was on 3 different antibiotics for URI documented in this encounter Plan of Treatment Upcoming Encounters Date Type Department Care Team (Late st Contact Info) Description 02/08/2025 12:00 PM EDT Imaging Radiology [place] [address] [place] [phone] 03/05/2025 4:00 PM EDT Office Visit [facility], [facility] [address] [facility] [place] [phone] Sai Mason MD [address] [facility] [place] [address] 05/15/2025 8:30 AM EDT Cardiac Studies [facility], [facility] [address] 05/15/2025 9:30 AM EDT Office Visit Cardiology, [facility] [address] [place] [address] Sj Hansen MD [address] [place] [address] Health Maintenance Due Date Last Done Comments Alpha-1 Antitrypsin 1960 DTap/Tdap Vaccines (1 - Tdap) 1961 Zoster Vaccines (1 of 2) 1992 Adult Wellness Visit 2008 COVID-19 Vaccine ( season) 2024 10/21/2023, 01/03/2023, 06/08/2022, Additional history exists Albumin/Creatinine Ratio 08/23/2024 08/23/2023 GFR 02/26/2025 08/28/2024, 01/19, 08/23/2023, Additional history exists Depression Screening 03/21/2025 03/21/2024 CKD PHOS USE SMARTSET 66049 08/28/2025 10/0 06/2024, 08/03/2022, 11/19/2020 HbA1c 08/28/2025 08/28/2024, 01/19, 08/23/2023, Additional history exists CKD HGB USE SMARTSET 82695 10/04/202510/04, 02/03/2024, 08/23/2023, Additional history exists O2 [...] this encounter Medical Devices Implanted Type Area Calender Operator Device Identifier Shelf Expiration Date Model / Serial / Lot Lens 25.0 Mx60e - [id number] - [id number] Implanted:Qty: 1 on 07/20/2018 by Ab Velazquez MD at OR [facility] Left: Eye [employer] LOMB 12/21/2019 [id number] / [id number] / [id number] documented as of this encounter Visit Diagnoses Diagnosis Rash and nonspecific skin eruption- Primary Rash and other nonspecific skin eruption Stage 3a chronic kidney disease (HCC) COPD, group B, by GOLD 2017 classification (HCC) Chronic systolic congestive heart failure (HCC) Chronic systolic heart failure 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 Care Teams Tire Setter Relationship Specialty Start Date End Date Sai Mason MD PCP - General 01/17/06 documented as of this encounter
[2025-01-17] MEDS: BUDESONIDE 0.5 MG/2 ML VIAL (PULMICORT) NEB SCH (20:47)
[2025-01-17] MEDS: FORMOTEROL 20 MCG/2 ML VIAL NEB SCH (20:47)
[2025-01-17] MEDS: ALBUT/IPRATROP 3MG/0.5MG NEB 3 ML VIAL NEB SCH (20:48)
[2025-01-17] MEDS ORDERED: methylPREDNISolone 125 MG/2 ML VIAL IV SCH (21:00)
[2025-01-17] MEDS: ATORVASTATIN 40 MG TAB PO SCH (21:08)
[2025-01-17] MEDS: HEPARIN SOD 5,000 UNIT/0.5 ML VIAL SQ SCH (21:09)
[2025-01-17] MEDS: methylPREDNISolone 40 MG in SYRINGE 0 ML IV SCH (21:57)
[2025-01-18 06:35] LABS: Hematocrit (blood only) 25.7 % (42.0-52.0); Hemoglobin 8.2 g/dl (14.0-18.0); Mean Corpuscular Hgb Conc 31.9 g/dL (32.0-36.0); Mean Corpuscular Volume 87.7 fL (80.0-100.0); Mean Platelet Volume 11.8 fL (9.4-12.4); Platelet Count 110 K/uL (130-400); RDW Coefficient of Variation 16.3 % (11.5-14.5); RDW Standard Deviation 53.1 fL (36.4-46.3); Red Blood Count 2.93 M/uL (4.70-6.10); White Blood Count 5.92 K/ul (4.8-10.8)
[2025-01-18 07:11] LABS: BUN Creatinine Ratio 31.8 (10-20); Calcium 8.6 mg/dl (8.6-10.3); Magnesium 1.7 mg/dl (1.7-2.4); Phosphorus 2.8 mg/dl (2.5-4.9); Potassium 4.3 mmol/L (3.5-5.1)
[2025-01-18 07:24] LABS: Estimated Average Glucose 137 mg/dl; Hemoglobin A1C 6.4 % (4.5-5.6)
[2025-01-18] MEDS: GABAPENTIN 300 MG CAP PO SCH (07:54)
[2025-01-18] MEDS: CLOPIDOGREL BISULFATE 75 MG TAB PO SCH (07:54)
[2025-01-18] MEDS: PANTOprazole 40 MG TAB PO SCH (07:54)
[2025-01-18] MEDS: AZITHROMYCIN 250 MG TAB PO SCH (07:54)
[2025-01-18] MEDS: MAGNESIUM SULFATE / D5W 1 GM/100 ML BAG IV ONE (07:55)
[2025-01-18] MEDS: METOPROLOL SUCC 25MG EXT REL TAB PO SCH (07:57)
--- NOTE | 2025-01-18 10:38 | Discharge Summary ---
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 Patient denies any increase in cough or change in the color of the sputum. Patient has history of COPD. Patient apparently was saturating at 83% at home per discussion. Patient reports hearing some wheezes. Per discussion with the ED physician, patient was wheezing at exam at presentation, received azithromycin/breathing treatment/Solu-Medrol bolus in the ED. Patient denies any fever/sore throat/chest pain/weakness/acute changes in his appetite or bowel or bowel or bladder habit/nausea/vomiting. Patient denies smoking/alcohol/recreational drug use. Full code Medications reviewed with the patient at bedside. Plan of care discussed with the patient, he voiced understanding and was agreeable. Admission Exam Per Admitting Provider GENERAL: Alert and oriented x3. NAD, on 2L NC O2. HEENT: No pallor, no icterus. Pupils equal, round and reactive to light. Oral mucosa moist. NECK: No JVD, no neck masses. HEART: S1 and S2 heard. Regular rate and rhythm. HR in 90s. No murmur, no gallop. RESPIRATORY SYSTEM: Normal AP diameter. No accessory muscle use. No wheezing, no crackles. decreased breath sounds b/l. ABDOMEN: Soft, bowel sounds present, nontender, no distention. CENTRAL NERVOUS SYSTEM: No facial droop. Speech is clear. Obeys simple commands. Moves extremities. EXTREMITIES: No edema, no erythema seen. Principal Diagnosis COPD exacerbation Hypoxia Discharge Exam GENERAL: Alert and oriented x3. NAD, on RA HEENT: NC/AT. Pupils equal, round and reactive to light. Oral mucosa moist. NECK: No JVD, no neck masses. HEART: Regular, + syst. murmur RESPIRATORY: No accessory muscle use. No wheezing, no crackles. decreased breath sounds b/l. ABDOMEN: Soft, bowel sounds present, nontender, no distention. NEURO: No facial droop. Speech is clear. Obeys simple commands. Moves extremities. EXTREMITIES: No edema, no erythema seen. Discharge Data Allergies Allergy/AdvReac Type Severity Reaction Status Date / Time No Known Allergies Allergy Unknown Verified 09/25/24 16:50 Consultations 01/17/25 14:52 ED Decision to Admit Stat Hospital Course (1) Acute exacerbation of chronic obstructive airways disease: Plan Mild COPD exacerbation: Patient presents with complaint of wheezing and progressive shortness of breath for last 2 days. Patient received breathing treatment/Solu-Medrol/azithromycin in the ED. Continued with Solu-Medrol, breathing treatment and azithromycin while inpt. Patient needed 2 L oxygen at bedside exam in ED, patient doesn't use oxygen at home. Currently on RA and feeling much better today. He would like to be discharged home. 2 step obtained and pt does not require oxygen. Will DC on azithromycin and prednisone Other chronic medical conditions: Continue with/resume home meds as and when able. Chronic systolic CHF, patient appears euvolemic. NSTEMI, continue with statin/Plavix/Toprol Prediabetes: Follow A1c 6.4% CKD stage III: Stable. Anemia chronic anemia: Hemoglobin at his baseline. Total Time Total Time Spent Total Time Spent (In Minutes): 40 Discharge Plan Discharge Items Patient Disposition: Home - Self-Care Reason For Visit: SOB Discharge Diagnosis: COPD exacerbation Hypoxia Activity: Per Instructions section Non-emergency contact: Primary Care Provider Call non-emergency contact if: you have any medication questions and your symptoms worsen Follow-up/Referrals: Sai Mason MD [Primary Care Provider] - (Date & Time 01/25/2025 2:00 PM Provider: Sai Mason MD [facility] [place], [facility] ) Diet: Heart Healthy Addtl Attending Provider Instructions: Follow up with primary care physician within 1 week. The appointment was scheduled for you for 01/25/2025. Finish course of azithromycin and prednisone as prescribed. Use incentive spirometer. Pending Studies at Discharge: No Stand-Alone Forms: My [employer], Smoking Cessation Medications and DC Order Prescriptions: New azithromycin 250 mg Tablet 250 mg PO QAM Qty: 3 0RF prednisone 20 mg tablet 20 mg PO DAILY Qty: 3 0RF Continued clopidogrel 75 mg tablet 75 mg PO QAM nitroglycerin 0.4 mg tablet, sublingual 0.4 mg sublingual UD PRN (Reason: Chest Pain) Rx Instructions: Take one nitro every 5 minutes up to three doses as needed for chest pain metoprolol succinate 25 mg tablet extended release 24 hr 25 mg PO QAM atorvastatin 80 mg tablet 80 mg PO QPM hydrocortisone 2.5 % cream with perineal applicator 1 applic NM BID PRN (Reason: irritation) pantoprazole 40 mg tablet,delayed release (DR/EC) 40 mg PO QAM acetaminophen [Tylenol Extra Strength] 500 mg Tablet 1,000 mg PO Q6H PRN (Reason: Pain) albuterol sulfate 2.5 mg /3 mL (0.083 %) solution for nebulization 2.5 mg continuous nebulization Q4 PRN (Reason: Wheezing) benzonatate 100 mg capsule 100 mg PO TID PRN (Reason: Cough) diphenhydramine HCl [Benadryl] 25 mg Capsule 25 mg PO DAILY PRN (Reason: Other) gabapentin 300 mg capsule 300 mg PO DAILY PreserVision AREDS 1 cap PO QAM Discharge Orders: Discharge Order (Routine); Ordered 01/18/25 Ordered By: Pedro Pablo Amos/Other Patient Handouts: A1C Admission Data Admit Date/Time: 01/17/25 15:46 Attending Provider: Pedro Pablo Rendon Admit Provider: Carla Kay Primary Care Provider: Sai Mason Other Providers: Carla Kay
[2025-01-18 12:41] VITALS: RESP 16; O2SAT 93
[2025-01-18 12:43] VITALS: BP 105/51; TEMP 97.7
[2025-01-18 14:01] VITALS: PULSE 18
--- NOTE | 2025-01-18 23:01 | Electrocardiogram Report ---
Test Reason : Blood Pressure : */* mmHG Vent. Rate : 93 BPM Atrial Rate : 93 BPM P-R Int : 188 ms QRS Dur : 94 ms QT Int : 334 ms P-R-T Axes : 34 55 -81 degrees QTcB Int : 415 ms Normal sinus rhythm T wave abnormality, consider lateral ischemia Abnormal ECG When compared with ECG of 29-Nov-2024 01:34, No significant change was found Confirmed by Romaine Tay ([id number]) on 01/18/2025 11:01:07 PM Referred By: Confirmed By: Romaine Tay
== END 2025-01-18 15:05 | disposition home or self-care (01) ==
LOC: ED 11:46 → 2W 11:46 → SUATTDRO 15:46 → 2W 19:49

== ENCOUNTER 2025-02-26 02:04 | Inpatient (IN) ==
--- NOTE | 2025-02-26 02:33 | Emergency Department Note ---
Impression & Plan COPD (chronic obstructive pulmonary disease) Admission ED Provider Note HPI: History obtained from patient. The patient is a 84-year-old gentleman with history of COPD, presents the emergency department via EMS over concern for increased work of breathing. Patient was seen here in the emergency room 2 days ago and diagnosed with RSV. He states he has continued with a cough and shortness of breath. Patient was placed on nasal cannula oxygen in the field for reported hypoxia, on arrival here to the ED he is at 94% on 2 L nasal cannula oxygen. Patient states he does not normally wear oxygen. Patient denies any chest pain, he is otherwise in no acute distress on arrival. ROS: - Per HPI Differential Diagnosis: COPD exacerbation, pneumonia, CHF exacerbation, pulmonary edema, ACS, pulmonary embolism, viral upper respiratory infection with bronchitis, amongst other potential pathologies. *Outpatient medications and allergy history reviewed. PE: General: Alert HEENT: Normocephalic, trachea midline Eyes: Extraocular eye movement is intact, no scleral erythema Pulmonary: Diminished air movement bilaterally with mild expiratory wheezing bilaterally and throughout Cardio: Regular rate and rhythm GI: Abdomen is soft to palpation : No suprapubic tenderness MSK: No evidence of trauma or malformation of the extremities, no edema Skin: No evidence of rash Neuro: Alert, no focal deficits Psychiatric: Cooperative INDEPENDENT INTERPRETATIONS: radiation monitor: (As interpreted by myself): - An order was placed for continuous cardiac monitoring - Patient was noted to be in sinus rhythm with a rate of 103 EKG: (As interpreted by myself): Rate: 101 Rhythm: Sinus rhythm Intervals: Within normal limits ST changes: No ST elevation Time: 0232 Chest x-ray: (As interpreted by myself): No focal infiltrate Interventions provided in ED: - DuoNeb breathing treatment, IV Solu-Medrol Medical Decision Making: IV was established and lab work obtained, patient was placed on nurse monitoring. Lab work shows no leukocytosis, hemoglobin is stable at 10.5, platelet count is normal, venous blood gas shows a pH of 7.44, pCO2 is normal. CMP does not show any evidence of any critical findings, troponin is negative, BNP is moderately elevated at 409. Urinalysis does not show any evidence of any obvious infection. Patient was positive for RSV 2 days ago therefore viral panel testing was not repeated tonight. Chest x-ray does not show any evidence of any focal pneumonia. Patient was hypoxic at times here in the ED to 89% on room air, he was placed on nasal cannula oxygen with good improvement. I feel at this point given that this is his second presentation within 48 hours and he is hypoxic that he should be admitted. Patient was in agreement to this plan. He does sound improved following DuoNeb breathing treatment and IV Solu-Medrol. I discussed the patient's presentation with the on-call hospitalist, Dr. Torrez, the patient was placed for admission in stable condition. Consultants/Discussions held with other healthcare providers: - Hospitalist, Dr. Torrez Disposition discussion held by myself with: - Patient * CRITICAL CARE TIME: ( 37 ) minutes - Stabilization of patient with hypoxia of 89% on room air requiring supplemental oxygen for correction, time spent at the bedside, interpretation of diagnostic studies, discussion with other physicians and arrangement of admission Diagnosis: 1. Hypoxia, acute 2. COPD exacerbation, acute Disposition: Admission Johnny Sigala DO Emergency Medicine Past Med/Surg History Problem List (Updated 02/26/25 @ 06:07 by Johnny Sigala DO) COPD (chronic obstructive pulmonary disease) (Acute) Respiratory syncytial virus (RSV) (Acute) Acute hypoxemic respiratory failure (Acute) COVID-19 (Acute) Acute exacerbation of chronic obstructive airways disease (Acute) Community acquired pneumonia (Acute) Arm pain, left (Acute) Ischemic cardiomyopathy CAD (coronary artery disease) Non-ST elevation (NSTEMI) myocardial infarction 2020 Medical History Acute kidney injury superimposed on chronic kidney disease Moderate to severe aortic stenosis Dyslipidemia HTN (hypertension) with goal to be determined CKD (chronic kidney disease), stage III Surgical History History of cataract surgery S/P cardiac catheterization H/O lithotripsy Family History Sister Heart disease Brother Heart disease Social History Smoking Status: Former smoker Tobacco Type: Cigarettes Second Hand Exposure: No; Do You Dip or Chew Tobacco: No; Hx Alcohol Use: Yes Alcohol type: other Hx Substance Use: No Preferred Language: Taiwanese Communication Ability: Effective Communication Ability Comment: [facility] [employer] Required: No Beliefs That Will Affect Care: None marital status: Current Living Situation: Spouse Current Living Situation Comment: lives at home with Feels Safe at Home: Yes Assistive Devices: Cane, Nebulizer and Walker Allergies Allergies Allergy/AdvReac Type Severity Reaction Status Date / Time No Known Allergies Allergy Unknown Verified 02/26/25 03:06 Home Meds Home Medications Medication Instructions Recorded Confirmed acetaminophen 500 mg tablet 1,000 mg PO Q6H PRN Pain 10/10/21 02/26/25 (Tylenol Extra Strength) clopidogrel 75 mg tablet 75 mg PO QAM 09/17/22 02/26/25 metoprolol succinate 25 mg 25 mg PO QAM 09/17/22 02/26/25 tablet,extended release 24 hr nitroglycerin 0.4 mg sublingual 0.4 mg sublingual UD PRN Chest Pain 09/17/22 02/26/25 tablet atorvastatin 80 mg tablet 80 mg PO QPM 11/06/22 02/26/25 pantoprazole 40 mg tablet,delayed 40 mg PO QAM 09/20/23 02/26/25 release gabapentin 300 mg capsule 300 mg PO UD 01/17/25 02/26/25 ipratropium 0.5 mg-albuterol 3 mg 3 ml inhalation Q6 PRN Shortness 02/24/25 02/26/25 (2.5 mg base)/3 mL nebulization Of Breath soln vitamins A,C,S-rbrn-txlvzb 4,296 1 cap PO QAM 02/24/25 02/26/25 mcg-226 mg-90 mg capsule (PreserVision AREDS) Results & Data (ED) Vital Signs Vital Signs - 24 hr 02/26/25 02:16 02/26/25 02:18 02/26/25 02:45 Temperature 37.0 C Temperature Source Oral Pulse Rate 107 H 105 H Pulse Rhythm Regular Pulse Strength Normal Respiratory Rate 22 Respiratory Effort / Characteristics Non-Labored Respiratory Depth Normal Respiratory Pattern Regular Blood Pressure 157/102 H Blood Pressure Mean 120 Blood Pressure Position Sitting Pulse Oximetry 94 89 L Oxygen Delivery Method Nasal Cannula Room Air Nasal Cannula Oxygen Flow Rate 2 Sepsis Recent Fever Within 48 Hours No Sepsis New/Unexplained Change in Mental Status N/A Sepsis Action Taken by Nursing Physician Notified Oxygen Flow Rate - Titration 2 Pulse Oximetry Post Tiitration 91 02/26/25 03:19 04/08/25 03:21 02/26/25 05:15 Temperature Temperature Source Pulse Rate Pulse Rhythm Pulse Strength Respiratory Rate Respiratory Effort / Characteristics Non-Labored Respiratory Depth Normal Respiratory Pattern Regular Blood Pressure Blood Pressure Mean Blood Pressure Position Pulse Oximetry 93 89 L Oxygen Delivery Method Nasal Cannula Nasal Cannula Nasal Cannula Oxymask Oxygen Flow Rate 2 2 2 Sepsis Recent Fever Within 48 Hours Sepsis New/Unexplained Change in Mental Status Sepsis Action Taken by Nursing Oxygen Flow Rate - Titration 8 Pulse Oximetry Post Tiitration 91 Laboratory Data 02/26/25 02:25 02/26/25 02:25 Lab Results 02/26/25 02/26/25 02/26/25 Range/Units 02:25 03:03 04:01 WBC 5.57 (4.8-10.8) K/ul RBC 3.82 L (4.70-6.10) M/uL Hgb 10.5 L (14.0-18.0) g/dl Hct 33.6 L (42.0-52.0) % MCV 88.0 (80.0-100.0) fL MCH 27.5 (25.0-34.0) pg MCHC 31.3 L (32.0-36.0) g/dL RDW Std Deviation 54.2 H (36.4-46.3) fL RDW Coeff of [place] 16.9 H (11.5-14.5) % Plt Count 150 (130-400) K/uL MPV 11.5 (9.4-12.4) fL Immature Gran % (Auto) 0.4 % Neut % (Auto) 84.2 % Lymph % (Auto) 8.1 % [place] % (Auto) 5.0 % Eos % (Auto) 1.8 % Baso % (Auto) 0.5 % Neut # (Auto) 4.69 (1.40-6.50) K/uL Lymph # (Auto) 0.45 L (1.20-3.40) K/uL [place] # (Auto) 0.28 (0.11-0.59) K/uL Eos # (Auto) 0.10 (0.00-0.50) K/uL Baso # (Auto) 0.03 (0.00-0.20) K/uL Immature Gran # (Auto) 0.02 (0.01-0.20) K/uL PT 11.7 (9.0-12.0) Seconds INR 1.1 (0.9-1.1) VBG pH 7.44 H (7.36-7.41) VBG pCO2 38 (38-50) mmHg VBG pO2 59 mmHg VBG HCO3 26 mmol/L VBG O2 Saturation 91.5 % VBG Base Excess 1.7 mEq/L Sodium 138 (136-145) mmol/L Potassium 4.1 (3.5-5.1) mmol/L Chloride 103 (98-107) mmol/L Carbon Dioxide 26 (21-32) mmol/L Anion Gap 9 (3-11) BUN 15 (6-23) mg/dl Creatinine 0.95 (0.6-1.4) mg/dl Est Cr Clr Drug Dosing 60.0 ml/min eGFR 79.92 BUN/Creatinine Ratio 15.8 (10-20) Glucose 141 H (70-99(Fasting)) mg/dl Calcium 9.0 (8.6-10.3) mg/dl Magnesium 1.8 (1.7-2.4) mg/dl Total Bilirubin 0.8 (0.2-1.0) mg/dl AST 50 H (13-39) U/L ALT 45 (7-52) U/L Alkaline Phosphatase 266 H (34-104) U/L Troponin I High Sens 18.8 (0-20) pg/ml B-Natriuretic Peptide 409 H (0-100) pg/ml Total Protein 7.5 (6.0-8.3) gm/dl Albumin 4.0 (3.4-5.0) gm/dl Globulin 3.5 (2.5-4.0) gm/dl Albumin/Globulin Ratio 1.1 (0.9-2) Urine Color Yellow Urine Appearance Clear (Clear) Urine pH 5.5 (4.5-7.5) Ur Specific [place] 1.021 (1.000-1.030) Urine Protein 1+ H (Negative) Urine Glucose (UA) Negative (Negative) Urine Ketones Trace H (Negative) Urine Blood Negative (Negative) Urine Nitrite Negative (Negative) Urine Bilirubin Negative (Negative) Urine Urobilinogen Negative (Negative) Ur Leukocyte Esterase 1+ H (Negative) Urine WBC (Auto) 0-5 (0-5) /hpf Urine RBC (Auto) 0-2 (0-2) /hpf U Hyaline Cast (Auto) 0-2 (0-2) /lpf U Epithel Cells (Auto) 0-2 (0-2) /hpf Urine Bacteria (Auto) None Seen (None Seen) Administered Medications Discontinued Medications Albuterol (Albut/Ipratrop 3mg/0.5mg Neb 3 Ml Vial) 3 ml NEB NOW STA; Protocol Stop: 02/26/25 02:31 Last Admin: 02/26/25 02:41 Dose: 3 ml Documented By: MARIELA Methylprednisolone (Methylprednisolone 125 Mg/2 Ml Vial) 125 mg IV NOW STA Stop: 02/26/25 02:31 Last Admin: 02/26/25 02:41 Dose: 125 mg Documented By: MARIELA Metoprolol Succinate (Metoprolol Succ 25mg Ext Rel Tab) 25 mg PO NOW STA Stop: 02/26/25 03:59 Last Admin: 02/26/25 05:15 Dose: 25 mg Documented By: MARIELA Imaging Data Radiologist's Impression: Chest X-Ray 02/26/25 02:18 EXAM: XR chest 1V portable CLINICAL HISTORY: Dyspnea. TECHNIQUE: An X-ray image of the chest is obtained in AP projection. COMPARISON: 02/24/2025. FINDINGS: Pulmonary Parenchyma: Lungs are clear bilaterally. No evidence of consolidation, collapse, or focal opacities. Prominent central bronchovascular markings with mild peribronchial thickening, which could be due to pulmonary congestion/ bronchitis. (unchanged). No evidence of pleural effusion or pleural thickening. Heart and Mediastinum: Heart size and shape are unremarkable. No mediastinal widening or masses. Bony Thorax: Mild decreased bone density. Soft Tissues: Soft tissues overlying the chest wall are unremarkable. IMPRESSION: 1. No pulmonary consolidation or collapse. 2. No significant interval change. Electronically signed by Xu Gallegos 02-26-2025 03:29 AM Discharge Plan Visit Data Chief Complaint: Shortness of Breath/Dyspnea Stated Complaint: Shortness of Breath/Dyspnea ED Provider: Johnny Sigala Discharge Problem: COPD (chronic obstructive pulmonary disease) Forms Stand Alone Forms: [facility] [employer] Prescriptions Prescriptions: No Action clopidogrel 75 mg tablet 75 mg PO QAM nitroglycerin 0.4 mg tablet, sublingual 0.4 mg sublingual UD PRN (Reason: Chest Pain) Rx Instructions: Take one nitro every 5 minutes up to three doses as needed for chest pain metoprolol succinate 25 mg tablet extended release 24 hr 25 mg PO QAM atorvastatin 80 mg tablet 80 mg PO QPM pantoprazole 40 mg tablet,delayed release (DR/EC) 40 mg PO QAM acetaminophen [Tylenol Extra Strength] 500 mg Tablet 1,000 mg PO Q6H PRN (Reason: Pain) ipratropium-albuterol 0.5 mg-3 mg(2.5 mg base)/3 mL solution for nebulization 3 ml INHALATION Q6 PRN (Reason: Shortness Of Breath) PreserVision AREDS 4,296 mcg-226 mg-90 mg Capsule 1 cap PO QAM gabapentin 300 mg capsule 300 mg PO UD Referrals Referrals: Sai Mason MD [Primary Care Provider] -
[2025-02-26] MEDS: ALBUT/IPRATROP 3MG/0.5MG NEB 3 ML VIAL NEB STA (02:41)
[2025-02-26] MEDS: methylPREDNISolone 125 MG/2 ML VIAL IV STA (02:41)
[2025-02-26 02:49] LABS: Basophils # (auto) 0.03 K/uL (0.00-0.20); Basophils % (auto) 0.5 %; Eosinophils % (auto) 1.8 %; Hematocrit (blood only) 33.6 % (42.0-52.0); Hemoglobin 10.5 g/dl (14.0-18.0); Immature Granulocytes # (auto) 0.02 K/uL (0.01-0.20); Immature Granulocytes % (auto) 0.4 %; Lymphocytes # (auto) 0.45 K/uL (1.20-3.40); Lymphocytes % (auto) 8.1 %; Mean Corpuscular Hemoglobin 27.5 pg (25.0-34.0); Mean Corpuscular Hgb Conc 31.3 g/dL (32.0-36.0); Mean Platelet Volume 11.5 fL (9.4-12.4); Monocytes # (auto) 0.28 K/uL (0.11-0.59); Neutrophils # (auto) 4.69 K/uL (1.40-6.50); Neutrophils % (auto) 84.2 %; Platelet Count 150 K/uL (130-400); RDW Coefficient of Variation 16.9 % (11.5-14.5); RDW Standard Deviation 54.2 fL (36.4-46.3); Red Blood Count 3.82 M/uL (4.70-6.10); White Blood Count 5.57 K/ul (4.8-10.8)
[2025-02-26 02:58] LABS: Albumin Globulin Ratio 1.1 (0.9-2); BUN Creatinine Ratio 15.8 (10-20); Bilirubin,Total 0.8 mg/dl (0.2-1.0); Globulin 3.5 gm/dl (2.5-4.0); Potassium 4.1 mmol/L (3.5-5.1); Total Protein 7.5 gm/dl (6.0-8.3)
[2025-02-26 03:04] LABS: Troponin I High Sensitivity 18.8 pg/ml (0-20)
[2025-02-26 03:07] LABS: INR 1.1 (0.9-1.1); Prothrombin Time 11.7 Seconds (9.0-12.0)
[2025-02-26 03:15] LABS: Base Excess VBG 1.7 mEq/L; HCO3 VBG 26 mmol/L; Oxygen Saturation VBG 91.5 %; PCO2 VBG 38 mmHg (38-50); PO2 VBG 59 mmHg; pH VBG 7.44 (7.36-7.41)
--- NOTE | 2025-02-26 03:29 | XRay Report ---
EXAM: XR chest 1V portable CLINICAL HISTORY: Dyspnea. TECHNIQUE: An X-ray image of the chest is obtained in AP projection. COMPARISON: 02/24/2025. FINDINGS: Pulmonary Parenchyma: Lungs are clear bilaterally. No evidence of consolidation, collapse, or focal opacities. Prominent central bronchovascular markings with mild peribronchial thickening, which could be due to pulmonary congestion/ bronchitis. (unchanged). No evidence of pleural effusion or pleural thickening. Heart and Mediastinum: Heart size and shape are unremarkable. No mediastinal widening or masses. Bony Thorax: Mild decreased bone density. Soft Tissues: Soft tissues overlying the chest wall are unremarkable. IMPRESSION: 1. No pulmonary consolidation or collapse. 2. No significant interval change. Electronically signed by Xu Gallegos 02-26-2025 03:29 AM
[2025-02-26 04:21] LABS: Appearance Urine Clear (Clear); Bacteria Urine Automated None Seen (None Seen); Bilirubin Urine Negative (Negative); Blood Urine Negative (Negative); Cast Urine Automated 0-2 /lpf (0-2); Color Urine Yellow; Epithelial Cell Urine Auto 0-2 /hpf (0-2); Glucose Urine UA Negative (Negative); Ketones Urine Trace (Negative); Leukocyte Esterase Urine 1+ (Negative); Nitrite Urine Negative (Negative); Protein Urine 1+ (Negative); RBC Urine Automated 0-2 /hpf (0-2); Specific Gravity Urine 1.021 (1.000-1.030); Urobilinogen Urine Negative (Negative); WBC Urine Automated 0-5 /hpf (0-5); pH Urine 5.5 (4.5-7.5)
[2025-02-26 04:26] LABS: Magnesium 1.8 mg/dl (1.7-2.4)
--- NOTE | 2025-02-26 04:58 | History & Physical Report ---
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 Pulmonary consulted without improvement DVT prophylaxis. Lovenox subcu DNR Text document was generated using Ribbit voice recognition software. It may contain grammatical or spelling errors. Kindly contact undersigned for clarification of any documentation item in question. History of Present Illness Chief Complaint: Worsening shortness of breath Primary Care Provider: Sai Mason MD History obtained from patient and records. Medical history significant for chronic diastolic heart failure (EF 50%, TTE 2023), CAD, valvular heart disease (moderate to severe , mild AR), hy pertension, hyperlipidemia, prediabetes, chronic anemia (baseline hemoglobin 8- 9), past tobacco abuse. Recent confinement last December 2024 for COPD exacerbation. 3 days history of cough symptoms compatible of clear sputum. Denies chest pain, worsening SOB. Sick contact at home. Patient seen at ER 2 days ago. RSV swab negative. Patient discharged home and instructed to follow-up with PCP. Patient returned to ER for evaluation due to worsening symptoms. Solu-Medrol given by EMS en route to ER. Denies chest pain or fluid retention. Lowest O2 sats of 80s documented at the ER. 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 Allergies Allergy/AdvReac Type Severity Reaction Status Date / Time No Known Allergies Allergy Unknown Verified 02/26/25 03:06 Home Medications Medication Instructions Recorded Confirmed Type acetaminophen 500 mg tablet 1,000 mg PO Q6H PRN Pain 10/10/21 02/26/25 History (Tylenol Extra Strength) clopidogrel 75 mg tablet 75 mg PO QAM 09/17/22 02/26/25 History metoprolol succinate 25 mg 25 mg PO QAM 09/17/22 02/26/25 History tablet,extended release 24 hr nitroglycerin 0.4 mg sublingual 0.4 mg sublingual UD PRN Chest Pain 09/17/22 02/26/25 History tablet atorvastatin 80 mg tablet 80 mg PO QPM 11/06/22 02/26/25 History pantoprazole 40 mg tablet,delayed 40 mg PO QAM 09/20/23 02/26/25 History release gabapentin 300 mg capsule 300 mg PO UD 01/17/25 02/26/25 History ipratropium 0.5 mg-albuterol 3 mg 3 ml inhalation Q6 PRN Shortness 02/24/25 02/26/25 History (2.5 mg base)/3 mL nebulization Of Breath soln vitamins A,C,R-tfse-pzylog 4,296 1 cap PO QAM 02/24/25 02/26/25 History mcg-226 mg-90 mg capsule (PreserVision AREDS) Past Med/Surg History Problem List (Updated 02/26/25 @ 06:07 by Johnny Sigala DO) COPD (chronic obstructive pulmonary disease) (Acute) Respiratory syncytial virus (RSV) (Acute) Acute hypoxemic respiratory failure (Acute) COVID-19 (Acute) Acute exacerbation of chronic obstructive airways disease (Acute) Community acquired pneumonia (Acute) Arm pain, left (Acute) Ischemic cardiomyopathy CAD (coronary artery disease) Non-ST elevation (NSTEMI) myocardial infarction 2020 Medical History Acute kidney injury superimposed on chronic kidney disease Moderate to severe aortic stenosis Dyslipidemia HTN (hypertension) with goal to be determined CKD (chronic kidney disease), stage III Surgical History History of cataract surgery S/P cardiac catheterization H/O lithotripsy Family History Sister Heart disease Brother Heart disease Social History Smoking Status: Former smoker Tobacco Type: Cigarettes Second Hand Exposure: No; Do You Dip or Chew Tobacco: No; Hx Alcohol Use: Yes Alcohol type: other Hx Substance Use: No Preferred Language: Nepali Communication Ability: Effective Communication Ability Comment: [facility] [employer] Sales Associate Required: No Beliefs That Will Affect Care: None marital status: Current Living Situation: Spouse Current Living Situation Comment: lives at home with Feels Safe at Home: Yes Assistive Devices: Cane, Nebulizer and Walker Review of Systems Review of Systems: As per HPI, all other systems reviewed and negative Physical Exam Physical Exam: GENERAL: Comfortable, pleasant, slightly hard of hearing, no respiratory distress SKIN: Pallor, warm HEENT: Pale palpebral conjunctivae, no ptosis, dry buccal mucosa, nasal cannula in place NECK : Supple, no tenderness CHEST : Decreased breath sounds, expiratory wheezes, no tenderness HEART : RRR, systolic murmur best heard over second right intercostal space ABDOMEN: Some distention, nontender EXTREMITIES : No LE swelling/tenderness, no other conspicuous deformities noted NEUROLOGIC : Coherent, no facial asymmetry, slightly hard of hearing, gait and stance not assessed Results & Data Results & Data Vital Signs (Past 12 Hours) Vital Signs Temp Pulse Resp BP Pulse Ox O2 Del Method O2 Flow Rate 02/26/25 03:21 93 Nasal Cannula 2 02/26/25 03:19 Nasal Cannula 2 02/26/25 02:45 105 H 02/26/25 02:18 89 L Room Air, Nasal Cannula 02/26/25 02:16 37.0 C 107 H 22 157/102 H 94 Nasal Cannula 2 Laboratory Results Laboratory Results WBC 5.57 K/ul (4.8-10.8) 02/26/25 02:25 RBC 3.82 M/uL (4.70-6.10) L 02/26/25 02:25 Hgb 10.5 g/dl (14.0-18.0) L 02/26/25 02:25 Hct 33.6 % (42.0-52.0) L 02/26/25 02:25 MCV 88.0 fL (80.0-100.0) 02/26/25 02:25 MCH 27.5 pg (25.0-34.0) 02/26/25 02:25 MCHC 31.3 g/dL (32.0-36.0) L 02/26/25 02:25 RDW Std Deviation 54.2 fL (36.4-46.3) H 02/26/25 02:25 RDW Coeff of [place] 16.9 % (11.5-14.5) H 02/26/25 02: Plt Count 150 K/uL (130-400) 02/26/25 02: MPV 11.5 fL (9.4-12.4) 02/26/25 02: Immature Gran % (Auto) 0.4 % 02/26/25 02: Neut % (Auto) 84.2 % 02/26/25 02:25 Lymph % (Auto) 8.1 % 02/26/25 02:25 [place] % (Auto) 5.0 % 02/26/25 02:25 Eos % (Auto) 1.8 % 02/26/25 02: Baso % (Auto) 0.5 % 02/26/25: Neut # (Auto) 4.69 K/uL (1.40-6.50) 02/26/25 02: Lymph # (Auto) 0.45 K/uL (1.20-3.40) L 02/26/25 02:25 [place] # (Auto) 0.28 K/uL (0.11-0.59) 02/26/25 02:25 Eos # (Auto) 0.10 K/uL (0.00-0.50) 02/26/25 02:25 Baso # (Auto) 0.03 K/uL (0.00-0.20) 02/26/25 02:25 Immature Gran # (Auto) 0.02 K/uL (0.01-0.20) 02/26/25 02: PT 11.7 Seconds (9.0-12.0) 02/26/25 02:25 INR 1.1 (0.9-1.1) 02/26/25 02:25 VBG pH 7.44 (7.36-7.41) H 02/26/25 03:03 VBG pCO2 38 mmHg (38-50) 02/26/25 03:03 VBG pO2 59 mmHg 02/26/25 03:03 VBG HCO3 26 mmol/L 02/26/25 03:03 VBG O2 Saturation 91.5 % 02/26/25 03:03 VBG Base Excess 1.7 mEq/L 02/26/25 03:03 Sodium 138 mmol/L (136-145) 02/26/25 02:25 Potassium 4.1 mmol/L (3.5-5.1) 02/26/25 02:25 Chloride 103 mmol/L (98-107) 02/26/25 02:25 Carbon Dioxide 26 mmol/L (21-32) 02/26/25 02:25 Anion Gap 9 (3-11) 02/26/25 02:25 BUN 15 mg/dl (6-23) 02/26/25 02:25 Creatinine 0.95 mg/dl (0.6-1.4) 02/26/25 02:25 Est Cr Clr Drug Dosing 60.0 ml/min 02/26/25 02:25 eGFR 79.92 02/26/25 02:25 BUN/Creatinine Ratio 15.8 (10-20) 02/26/25 02:25 Glucose 141 mg/dl (70-99(Fasting)) H 02/26/25 02:25 Calcium 9.0 mg/dl (8.6-10.3) 02/26/25 02:25 Magnesium 1.8 mg/dl (1.7-2.4) 02/26/25 02:25 Total Bilirubin 0.8 mg/dl (0.2-1.0) 02/26/25 02:25 AST 50 U/L (13-39) H 02/26/25 02:25 ALT 45 U/L (7-52) 02/26/25 02:25 Alkaline Phosphatase 266 U/L (34-104) H 02/26/25 02:25 Troponin I High Sens 18.8 pg/ml (0-20) 02/26/25 02:25 B-Natriuretic Peptide 409 pg/ml (0-100) H 02/26/25 02:25 Total Protein 7.5 gm/dl (6.0-8.3) 02/26/25 02:25 Albumin 4.0 gm/dl (3.4-5.0) 02/26/25 02:25 Globulin 3.5 gm/dl (2.5-4.0) 02/26/25 02:25 Albumin/Globulin Ratio 1.1 (0.9-2) 02/26/25 02:25 Urine Color Yellow 02/26/25 04:01 Urine Appearance Clear (Clear) 02/26/25 04:01 Urine pH 5.5 (4.5-7.5) 02/26/25 04:01 Ur Specific [place] 1.021 (1.000-1.030) 02/26/25 04:01 Urine Protein 1+ (Negative) H 02/26/25 04:01 Urine Glucose (UA) Negative (Negative) 02/26/25 04:01 Urine Ketones Trace (Negative) H 02/26/25 04:01 Urine Blood Negative (Negative) 02/26/25 04:01 Urine Nitrite Negative (Negative) 02/26/25 04:01 Urine Bilirubin Negative (Negative) 02/26/25 04:01 Urine Urobilinogen Negative (Negative) 02/26/25 04:01 Ur Leukocyte Esterase 1+ (Negative) H 02/26/25 04:01 Urine WBC (Auto) 0-5 /hpf (0-5) 02/26/25 04:01 Urine RBC (Auto) 0-2 /hpf (0-2) 02/26/25 04:01 U Hyaline Cast (Auto) 0-2 /lpf (0-2) 02/26/25 04:01 U Epithel Cells (Auto) 0-2 /hpf (0-2) 02/26/25 04:01 Urine Bacteria (Auto) None Seen (None Seen) 02/26/25 04:01 Impressions Chest X-Ray 02/26/25 02:18 EXAM: XR chest 1V portable CLINICAL HISTORY: Dyspnea. TECHNIQUE: An X-ray image of the chest is obtained in AP projection. COMPARISON: 02/24/2025. FINDINGS: Pulmonary Parenchyma: Lungs are clear bilaterally. No evidence of consolidation, collapse, or focal opacities. Prominent central bronchovascular markings with mild peribronchial thickening, which could be due to pulmonary congestion/ bronchitis. (unchanged). No evidence of pleural effusion or pleural thickening. Heart and Mediastinum: Heart size and shape are unremarkable. No mediastinal widening or masses. Bony Thorax: Mild decreased bone density. Soft Tissues: Soft tissues overlying the chest wall are unremarkable. IMPRESSION: 1. No pulmonary consolidation or collapse. 2. No significant interval change. Electronically signed by Xu Gallegos 02-26-2025 03:29 AM Diagnostic Findings EKG as per my interpretation :Rate 105, sinus tachycardia, normal axis, T wave abnormalities lateral leads
[2025-02-26] MEDS: METOPROLOL SUCC 25MG EXT REL TAB PO STA (05:15)
[2025-02-26] MEDS ORDERED: NITROGLYCERIN SL 0.4 MG/TAB TAB SL PRN (05:42)
[2025-02-26] MEDS ORDERED: BENZONATATE 100 MG CAPSULE PO PRN (05:44)
[2025-02-26] MEDS: OPTIRAY 320 125ml IV ONE (06:20)
[2025-02-26] MEDS: MAGNESIUM SULFATE / D5W 1 GM/100 ML BAG IV SCH (06:33)
--- NOTE | 2025-02-26 06:57 | CT Scan Report ---
EXAM: CT angio chest PE protocol CLINICAL HISTORY: sob TECHNIQUE: Contiguous axial images were obtained from the neck base through the upper abdomen following intravenous administration of iodinated contrast material. Angiographic images were processed, 3D MIP images were acquired for interpretation. If IV contrast material had not been administered, the likelihood of detecting abnormalities relevant to the patient's condition would have been substantially decreased. Coronal and sagittal 3-D MIPs were likewise performed and indicated to increase the sensitivity of detectin diffuse clinically relevant pathology. CT scan was performed according to ALARA (as low as reasonable achievable). COMPARISON: with CT dated 12/01/2022 FINDINGS: Adequate contrast bolus without evidence of pulmonary embolism. The central airways are patent. ~4.2mm calcified sub pleural nodule in apical segment of right upper lobe.- as seen previously Few subsegmental atelectasis changes in left upper lobe, basal segment of left lower lobe and left lingula. Rest of the lungs are clear. No pleural effusion. The heart, aorta, and pulmonary arteries are of normal size and configuration. There are no appreciable coronary artery and aortic atherosclerotic calcifications. No pericardial effusion is identified. The thyroid is unremarkable. No mediastinal, hilar, or axillary lymphadenopathy is noted. No suspicious lytic or sclerotic osseous lesions are identified. IMPRESSION: No evidence of pulmonary embolism or pulmonary disease. Few subsegmental atelectasis bands in left lung bain as described above- likely post inflammatory changes Electronically signed by Kobi Kimbrough 02-26-2025 06:57 AM
[2025-02-26] MEDS: LEVALBUTEROL 1.25 MG/3 ML NEB NEB SCH (08:02)
[2025-02-26] MEDS: IPRATROPIUM BROMIDE NEB SOLN 0.02% 0.5MG/2.5ML VIAL INH SCH (08:02)
[2025-02-26] MEDS: CLOPIDOGREL BISULFATE 75 MG TAB PO SCH (09:15)
[2025-02-26] MEDS: PANTOprazole 40 MG TAB PO SCH (09:15)
--- NOTE | 2025-02-26 12:20 | Hospitalist Progress Note ---
Date of Service February 26, 2025 Assessment & Plan (1) Acute hypoxemic respiratory failure: (2) RSV bronchitis: (3) Acute exacerbation of chronic obstructive airways disease: (4) HTN (hypertension) with goal to be determined: (5) CKD (chronic kidney disease), stage III: (6) Moderate to severe aortic stenosis: Plan Patient 84-year-old gentleman with acute exacerbation of COPD from an RSV bronchitis. Continue oxygen support and titrate as able Continue oral steroids and nebulizer treatments Continue other outpatient medications Okay for [facility] Admission and Anticipated Discharge Date Admission Date: February 26, 2025 Subjective Patient feeling a little bit better since admission. Reports that at 1 point in the past he had been on home oxygen but most recently has been on room air at home. Last couple days as he got this upper respiratory infection noticed that his home O2 sat was now dropping into the low 90s upper 80s. Physical Exam Physical Exam: Constitutional: Alert, nontoxic HEENT: Mucous membranes moist. Lungs: Decreased, poor airflow, tight wheezes. Some pursed lip breathing CV: S1-S2, regular Abdomen: Soft, nontender, nondistended Extremities: No significant edema Neuro: No focal deficits Psych: Cooperative, normal mood Results & Data Results & Data Vital Signs (Past 12 Hours) Vital Signs Temp Pulse Pulse Resp BP BP Pulse Ox 02/26/25 12:05 87 19 126/82 92 02/26/25 08:23 89 18 125/75 92 02/26/25 08:14 84 02/26/25 07:37 82 20 136/77 95 02/26/25 06:36 83 18 133/87 94 02/26/25 06:36 96 02/26/25 05:15 89 L 02/26/25 03:21 93 02/26/25 03:19 02/26/25 02:45 105 H 02/26/25 02:18 89 L 02/26/25 02:16 37.0 C 107 H 22 157/102 H 94 O2 Del Method O2 Flow Rate 02/26/25 12:05 Nasal Cannula 4 02/26/25 08:23 Nasal Cannula 3 02/26/25 08:14 02/26/25 07:37 Oxymask 4 02/26/25 06:36 Oxymask 6 02/26/25 06:36 Oxymask 8 02/26/25 05:15 Nasal Cannula, Oxymask 2 02/26/25 03:21 Nasal Cannula 2 02/26/25 03:19 Nasal Cannula 2 02/26/25 02:45 02/26/25 02:18 Room Air, Nasal Cannula 02/26/25 02:16 Nasal Cannula 2 Diagnostic Findings Reviewed imaging, laboratory and diagnostic studies. Pertinent findings as below.
[2025-02-26] MEDS: guaiFENesin 600 MG TABCR PO SCH (12:35)
[2025-02-26] MEDS: BENZONATATE 100 MG CAPSULE PO SCH (14:32)
[2025-02-26] MEDS: methylPREDNISolone 40 MG in SYRINGE 0 ML IV ONE (20:56)
--- NOTE | 2025-02-26 21:30 | Communication Note ---
Date of Service: February 26, 2025 Patient noted to have worsening SOB, respiratory distress as per RN. Denies chest pain. Junky cough symptoms. O2 sats 80s at 1 point. Chest x-ray as per my interpretation interstitial infiltrates AP Worsening hypoxemic respiratory failure COPD exacerbation/complicated bronchitis from RSV infection BIPAP Recheck VBG Additional Solu-Medrol now Initiate doxycycline for superimposed bacterial infection.
[2025-02-26] MEDS ORDERED: PROMETHAZINE 6.25 MG/50.25 ML BAG IV PRN (21:32)
[2025-02-26] MEDS: PROMETHAZINE 6.25 MG/50.25 ML BAG IV STA (21:47)
[2025-02-26] MEDS: DOXYCYCLINE HYCLATE 100 MG in DEXTROSE 5% MINI-B 100 ML IV STA (22:12)
[2025-02-26] MEDS: hydrOXYzine HCl 10 MG TAB PO PRN (23:00)
[2025-02-26 23:05] LABS: Base Excess VBG 0.8 mEq/L; HCO3 VBG 27 mmol/L; Oxygen Saturation VBG < 60.0 %; PCO2 VBG 46 mmHg (38-50); PO2 VBG 33 mmHg; pH VBG 7.37 (7.36-7.41)
--- NOTE | 2025-02-26 23:26 | XRay Report ---
Exam(s): XR CXR 1 VIEW EXAM: XR Chest, 1 View CLINICAL HISTORY: Reason for exam: low o2. TECHNIQUE: Frontal view of the chest. COMPARISON: Prior chest x-ray from February 26, 2025. FINDINGS: Lungs: Mild to moderate peribronchial thickening of the central and lower lobe bronchi. No consolidation. Pleural space: Unremarkable. No pneumothorax. Heart: Unremarkable. No cardiomegaly. Mediastinum: Unremarkable. Normal mediastinal contour. Bones/joints: Unremarkable. No acute fracture. IMPRESSION: Bronchitis, which may be of infectious or inflammatory etiologies. No consolidation or pleural effusion. Electronically signed by: Charis Beaver MD 02/26/25 23:25 PM
[2025-02-27] MEDS: ATORVASTATIN 40 MG TAB PO SCH (00:37)
[2025-02-27] MEDS: GABAPENTIN 300 MG CAP PO SCH (00:37)
[2025-02-27] MEDS: OLANZapine 10 MG/2.1 ML SDV IM PRN (01:56)
[2025-02-27] MEDS: ACETAMINOPHEN 1,000 MG/100 ML VIAL IV STA (02:03)
[2025-02-27] MEDS: METOPROLOL TARTRATE 1 MG/ML VIAL IV STA (05:02)
--- NOTE | 2025-02-27 05:37 | Electrocardiogram Report ---
Test Reason : Blood Pressure : */* mmHG Vent. Rate : 101 BPM Atrial Rate : 101 BPM P-R Int : 196 ms QRS Dur : 94 ms QT Int : 318 ms P-R-T Axes : 21 45 2 degrees QTcB Int : 412 ms Sinus tachycardia T wave abnormality, consider lateral ischemia Abnormal ECG When compared with ECG of 24-Feb-2025 22:18, T wave inversion no longer evident in Inferior leads Confirmed by Romaine Tay ([id number]) on 02/27/2025 5:36:52 AM Referred By: REFERRED SELF Confirmed By: Romaine Tay
[2025-02-27 07:08] LABS: Hematocrit (blood only) 33.3 % (42.0-52.0); Hemoglobin 10.4 g/dl (14.0-18.0); Mean Corpuscular Hemoglobin 27.2 pg (25.0-34.0); Mean Corpuscular Hgb Conc 31.2 g/dL (32.0-36.0); Mean Corpuscular Volume 87.2 fL (80.0-100.0); Mean Platelet Volume 11.5 fL (9.4-12.4); Platelet Count 152 K/uL (130-400); RDW Coefficient of Variation 17.2 % (11.5-14.5); RDW Standard Deviation 55.1 fL (36.4-46.3); Red Blood Count 3.82 M/uL (4.70-6.10); White Blood Count 14.08 K/ul (4.8-10.8)
[2025-02-27] MEDS: DOXYCYCLINE HYCLATE 100 MG CAP PO SCH (07:21)
[2025-02-27] MEDS: METOPROLOL SUCC 25MG EXT REL TAB PO SCH (07:22)
[2025-02-27 07:26] LABS: Basophils # (auto) 0.01 K/uL (0.00-0.20); Basophils % (auto) 0.1 %; Echinocytes 1+; Immature Granulocytes # (auto) 0.17 K/uL (0.01-0.20); Immature Granulocytes % (auto) 1.2 %; Lymphocytes # (auto) 0.47 K/uL (1.20-3.40); Lymphocytes % (auto) 3.3 %; Monocytes # (auto) 0.35 K/uL (0.11-0.59); Monocytes % (auto) 2.5 %; Neutrophils # (auto) 13.08 K/uL (1.40-6.50); Neutrophils % (auto) 92.9 %; Ovalocytes 1+
[2025-02-27] MEDS: ACETAMINOPHEN 325 MG TAB PO PRN (07:28)
[2025-02-27] MEDS: methylPREDNISolone 40 MG in SYRINGE 0 ML IV SCH (07:54)
[2025-02-27] MEDS ORDERED: PHA DELIRIUM CONSULT PRN (08:15)
[2025-02-27 08:31] LABS: Base Excess ABG 0.9 mEq/L (-9-1.8); HCO3 ABG 27 mmol/L (19-24); Oxygen Saturation ABG 96.8 % (90-95); PCO2 ABG 47 mmHg (35-46); PO2 ABG 94 mmHg (80-95); pH ABG 7.36 (7.35-7.45)
[2025-02-27 08:32] LABS: Allen Test Pos (Pos)
[2025-02-27] MEDS ORDERED: predniSONE 20 MG TAB PO SCH (09:00)
--- NOTE | 2025-02-27 09:41 | XRay Report ---
XR chest 1V portable CLINICAL HISTORY: worsening hypoxia COMPARISON STUDY: 02/26/2025 FINDINGS: Heart size and pulmonary vasculature are normal. No effusion, consolidation, or pneumothora x. IMPRESSION: No acute findings. ACT 112: Negative or not required by law. Electronically signed by: David Whyte M.D. 02/27/2025 9:40 AM
[2025-02-27 10:58] LABS: Calcium 9.2 mg/dl (8.6-10.3); Creatinine Clr Calc Pharmacy 62.6 ml/min
[2025-02-27] MEDS: OPTIRAY 320 100ml IV ONE (15:20)
--- NOTE | 2025-02-27 15:40 | CT Scan Report ---
CT SCAN OF THE CHEST WITH IV CONTRAST CLINICAL HISTORY: Wheezing. Hypoxia. COMPARISON STUDY: Chest radiograph performed earlier today. Chest CT February 26, 2025 TECHNIQUE: Following the IV administration of 93 cc of Optiray 320, CT scan of the thorax was perform ed from the thoracic inlet to the upper abdomen. Images are reviewed in the axial, sagittal, and ethan nal planes. IV contrast was administered without complication. A dose lowering technique was utilize d adhering to the principles of ALARA. CT DOSE: 918.81 mGy.cm FINDINGS: No enlarged axillary, mediastinal or hilar lymph nodes are present. There is moderate aorti c valvular and coronary artery calcification. The heart is mildly enlarged. There is no pericardial e ffusion. 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 The central airwa ys are patent. There is no pneumothorax or pleural effusion. Lower lobe predominant tree-in-bud nodul ar opacities have developed since CT of February 26, 2025. There is no pneumothorax or pleural effusion. No suspicious pulmonary nodules are identified. There are no acute fractures within the bony thorax. No central pulmonary emboli are identified. IMPRESSION: 1. Interval development of lower lobe predominant tree-in-bud nodular opacities which favor an infect ious process such as bronchiolitis or developing bronchopneumonia. 2. Moderate aortic valvular and coronary artery calcification. ACT 112: Negative or not required by law. Electronically signed by: Diego Gavin M.D. 02/27/2025 3:38 PM
--- NOTE | 2025-02-27 15:40 | CT Scan Report ---
CT soft tissue neck w con CLINICAL HISTORY: upper airway wheeze, hypoxia COMPARISON STUDY: None FINDINGS: There is swallowing artifact. Visualized upper airway is otherwise patent and symmetric. No tonsillar abscess. Thyroid gland, submandibular glands, and parotid glands are unremarkable. No enla rged adenopathy seen. Visualized paranasal sinuses are clear. There are a few opacified mastoid air c ells. There are mild degenerative changes at the lower cervical spine. There are mild carotid bulb ca lcifications. IMPRESSION: No significant finding seen. ACT 112: Negative or not required by law. Electronically signed by: David Whyte M.D. 02/27/2025 3:39 PM
--- NOTE | 2025-02-27 16:40 | Hospitalist Progress Note ---
Date of Service February 27, 2025 Assessment & Plan (1) Acute hypoxemic respiratory failure: Plan: -in setting of RSV, COPD, and now CAP -poor air movement -echo relatively unchanged from prior Plan: -start incentive spirometer, flutter valve -continue IV steroids, transition to PO once off of high flow/Bipap (for comfort) -appreciate respiratory therapy assistance -start ceftriaxone/azithro x5 days -MRSA swab, blood cultures, sputum culture ordered -gentle hydration give severe , avoid diuresis if possible given preload dependent (2) RSV bronchitis: Plan: -see above, supportive care (3) Acute exacerbation of chronic obstructive airways disease: Plan: -see above (4) HTN (hypertension) with goal to be determined: Plan: -continue home meds (5) CKD (chronic kidney disease), stage III: Plan: -at baseline (6) Moderate to severe aortic stenosis: Plan: -elevated BNP, troponin in setting of type 2 myocardial injury -ECG, echo unchanged from prior -f/u outpatient with cardiology, consideration for TAVR given severe aortic stenosis Plan Patient 84-year-old gentleman with acute exacerbation of COPD from an RSV bronchitis. Continue oxygen support and titrate as able Continue oral steroids and nebulizer treatments Continue other outpatient medications Okay for [facility] Admission and Anticipated Discharge Date Admission Date: February 26, 2025 Subjective Patient seen and examined at bedside. at bedside and over the phone as well. Patient is not doing great today. Overnight was placed on high flow nasal cannula with a rapid increase in oxygen requirements. Discussed next steps including looking echocardiogram, repeat imaging of the chest in order to determine etiology. Cardiac enzymes are slightly elevated echocardiogram is or dered and was unchanged compared to prior. Personally reviewed. Review of Systems Review of Systems: CONSTITUTIONAL: Patient denies fevers, chills, sweats and weight changes. EYES: Patient denies any visual symptoms. EARS, NOSE, AND THROAT: No difficulties with hearing. No symptoms of rhinitis or sore throat. CARDIOVASCULAR: Patient denies chest pains, palpitations, orthopnea and paroxysmal nocturnal dyspnea. RESPIRATORY: SOB, cough GI: No nausea, vomiting, diarrhea, constipation, abdominal pain, hematochezia or melena. : No urinary hesitancy or dribbling. No nocturia or urinary frequency. No abnormal urethral discharge. MUSCULOSKELETAL: No myalgias or arthralgias. NEUROLOGIC: No chronic headaches, no seizures. Patient denies numbness, tingling or weakness. PSYCHIATRIC: Patient denies problems with mood disturbance. No problems with anxiety. ENDOCRINE: No excessive urination or excessive thirst. DERMATOLOGIC: Patient denies any rashes or skin changes. Physical Exam Physical Exam: Gen: A&O 3 NAD HEENT: NCAT, EOMI, not icteric. External ears normal. No rhinorrhea. Dry mucous membranes. Neck: Supple, full range of motion, no observable masses, No meningeal sign. Lungs: very poor air movement bilaterally, trace rhonchi on left lower lobe CV: tachycardic, regular rhythm Abdomen: Soft, nondistended, No rebound tenderness. MSK: No joint swelling, no redness. Skin: No rashes, petechiae, lesions. Normal color per patient. Neuro: Normal Gait, Grossly intact. Psych: orriented and alert but slightly confused Results & Data Results & Data Vital Signs (Past 12 Hours) Vital Signs Temp Pulse Pulse Pulse Resp BP Pulse Ox 02/27/25 15:48 36.7 C 90 18 151/57 H 95 02/27/25 14:40 90 02/27/25 13:36 98 H 26 H 98 02/27/25 13:15 92 H 24 93 02/27/25 11:32 36.5 C 84 18 131/89 93 02/27/25 11:00 93 02/27/25 10:45 94 02/27/25 07:42 36.8 C 97 H 20 134/71 99 02/27/25 07:20 02/27/25 07:20 02/27/25 07:00 98 H 02/27/25 06:56 90 18 96 02/27/25 06:11 95 Pulse Ox O2 Del Method O2 Del Method O2 Flow Rate O2 Flow Rate FiO2 02/27/25 15:48 High Flow Nasal Cannula 3 02/27/25 14:40 02/27/25 13:36 30 02/27/25 13:15 Nasal Cannula 3 02/27/25 11:32 High Flow Nasal Cannula 3 02/27/25 11:00 High Flow Nasal Cannula 5 02/27/25 10:45 High Flow Nasal Cannula 7 02/27/25 07:42 High Flow Nasal Cannula 10 02/27/25 07:20 High Flow Nasal Cannula 10 02/27/25 07:20 93 High Flow Nasal Cannula 10 02/27/25 07:00 02/27/25 06:56 Nasal Cannula 10 02/27/25 06:11 High Flow Nasal Cannula 10 Laboratory Results -personally reviewed, elevated troponin and BNP suggestive of type 2 myocardial injury, leukocytosis in setting of steroid use, ABG with very minimal respiratory acidosis with relatively maintained pH of 7.36 Diagnostic Findings Chest X-Ray 02/27/25 08:09 XR chest 1V portable CLINICAL HISTORY: worsening hypoxia COMPARISON STUDY: 02/26/2025 FINDINGS: Heart size and pulmonary vasculature are normal. No effusion, consolidation, or pneumothorax. IMPRESSION: No acute findings. ACT 112: Negative or not required by law. Electronically signed by: David Whyte M.D. 02/27/2025 9:[address] 02/27/25 13:52 CT SCAN OF THE CHEST WITH IV CONTRAST CLINICAL HISTORY: Wheezing. Hypoxia. COMPARISON STUDY: Chest radiograph performed earlier today. Chest CT February 26, 2025 TECHNIQUE: Following the IV administration of 93 cc of Optiray 320, CT scan of the thorax was performed from the thoracic inlet to the upper abdomen. Images are reviewed in the axial, sagittal, and coronal planes. IV contrast was administered without complication. A dose lowering technique was utilized adhering to the principles of ALARA. CT DOSE: 918.81 mGy.cm FINDINGS: No enlarged axillary, mediastinal or hilar lymph nodes are present. There is moderate aortic valvular and coronary artery calcification. The heart is mildly enlarged. There is no pericardial effusion. 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 The central airways are patent. There is no pneumothorax or pleural effusion. Lower lobe predominant tree-in-bud nodular opacities have developed since CT of February 26, 2025. There is no pneumothorax or pleural effusion. No suspicious pulmonary nodules are identified. There are no acute fractures within the bony thorax. No central pulmonary emboli are identified. IMPRESSION: 1. Interval development of lower lobe predominant tree-in-bud nodular opacities which favor an infectious process such as bronchiolitis or developing bronchopneumonia. 2. Moderate aortic valvular and coronary artery calcification. ACT 112: Negative or not required by law. Electronically signed by: Diego Gavin M.D. 02/27/2025 3:38 PM Soft Tissue Neck CT 02/27/25 13:52 CT soft tissue neck w con CLINICAL HISTORY: upper airway wheeze, hypoxia COMPARISON STUDY: None FINDINGS: There is swallowing artifact. Visualized upper airway is otherwise patent and symmetric. No tonsillar abscess. Thyroid gland, submandibular glands, and parotid glands are unremarkable. No enlarged adenopathy seen. Visualized paranasal sinuses are clear. There are a few opacified mastoid air cells. There are mild degenerative changes at the lower cervical spine. There are mild carotid bulb calcifications. IMPRESSION: No significant finding seen. ACT 112: Negative or not required by law. Electronically signed by: David Whyte M.D. 02/27/2025 3:39 PM -personally reviewed, CT neck unremarkable, CT chest with development of left lower lobe opacities change from prior CTA PE Medications Administered Acetaminophen (Acetaminophen 325 Mg Tab) 650 mg PO QID PRN PRN Reason: pain/fever Stop: 03/28/25 05:40 Last Admin: 02/27/25 07:28 Dose: 650 mg Documented By: JENNIFER Atorvastatin Calcium (Atorvastatin 40 Mg Tab) 80 mg PO QPM [facility] Stop: 03/28/25 20:59 Last Admin: 02/27/25 00:37 Dose: Not Given Documented By: MICHAEL Benzonatate (Benzonatate 100 Mg Capsule) 100 mg PO TID [facility] Stop: 03/28/25 13:59 Last Admin: 02/27/25 14:09 Dose: Not Given Documented By: Admin: 02/27/25 07:22 Dose: 100 mg Documented By: Admin: 02/27/25 00:37 Dose: Not Given Documented By: Admin: 02/26/25 14:32 Dose: 100 mg Documented By: JENNIFER Clopidogrel Bisulfate (Clopidogrel Bisulfate 75 Mg Tab) 75 mg PO QAM [facility] Stop: 03/28/25 08:59 Last Admin: 02/27/25 07:21 Dose: 75 mg Documented By: Admin: 02/26/25 09:15 Dose: 75 mg Documented By: MARVIN Gabapentin (Gabapentin 300 Mg Cap) 300 mg PO HS [facility] Stop: 03/28/25 20:59 Last Admin: 02/27/25 00:37 Dose: Not Given Documented By: MICHAEL Guaifenesin (Guaifenesin 600 Mg Tabcr) 600 mg PO Q12 [facility] Stop: 03/28/25 12:24 Last Admin: 02/27/25 07:22 Dose: 600 mg Documented By: Admin: 02/27/25 00:37 Dose: Not Given Documented By: Admin: 02/26/25 12:35 Dose: 600 mg Documented By: MARVIN Methylprednisolone 40 mg/ (Syringe) 0.64 mls @ 1.5 mls/min IV DAILY [facility] Stop: 03/29/25 08:59 Last Admin: 02/27/25 07:54 Dose: 1.5 mls/min Documented By: JENNIFER Ipratropium [place] (Ipratropium [place] Neb Soln 0.02% 0.5mg/2.5ml Vial) 0.5 mg INH Q6R [facility] Stop: 03/28/25 07:59 Last Admin: 02/27/25 13:14 Dose: 0.5 mg Documented By: Admin: 02/27/25 06:55 Dose: 0.5 mg Documented By: Admin: 02/27/25 01:45 Dose: Not Given Documented By: Admin: 02/26/25 20:09 Dose: 0.5 mg Documented By: Admin: 02/26/25 12:35 Dose: 0.5 mg Documented By: Admin: 02/26/25 08:02 Dose: 0.5 mg Documented By: MARVIN Levalbuterol HCl (Levalbuterol 1.25 Mg/3 Ml Neb) 1.25 mg NEB Q6R [facility] Stop: 03/28/25 07:44 Last Admin: 02/27/25 13:14 Dose: 1.25 mg Documented By: Admin: 02/27/25 06:55 Dose: 1.25 mg Documented By: Admin: 02/27/25 01:45 Dose: Not Given Documented By: Admin: 02/26/25 20:09 Dose: 1.25 mg Documented By: Admin: 02/26/25 12:35 Dose: 1.25 mg Documented By: Admin: 02/26/25 08:02 Dose: 1.25 mg Documented By: MARVIN Metoprolol Succinate (Metoprolol Succ 25mg Ext Rel Tab) 25 mg PO QAM [facility] Stop: 03/29/25 08:59 Last Admin: 02/27/25 07:22 Dose: 25 mg Documented By: JENNIFER Pantoprazole Sodium (Pantoprazole 40 Mg Tab) 40 mg PO JOHN PAULM [facility] Stop: 03/28/25 08:59 Last Admin: 02/27/25 07:21 Dose: 40 mg Documented By: Admin: 02/26/25 09:15 Dose: 40 mg Documented By: MARVIN
[2025-02-27] MEDS: cefTRIAXone SODIUM 2,000 MG/50 ML BAG IV SCH (17:00)
[2025-02-27] MEDS: LACTATED RINGER'S 1,000 ML IV SCH (17:26)
[2025-02-27] MEDS: AZITHROMYCIN 500 MG/255 ML BAG IV SCH (17:27)
[2025-02-27] MEDS: MELATONIN 3 MG TAB PO PRN (20:47)
--- NOTE | 2025-02-28 06:06 | Electrocardiogram Report ---
Test Reason : Blood Pressure : */* mmHG Vent. Rate : 83 BPM Atrial Rate : 83 BPM P-R Int : 192 ms QRS Dur : 104 ms QT Int : 372 ms P-R-T Axes : 56 59 16 degrees QTcB Int : 437 ms Normal sinus rhythm Nonspecific T wave abnormality Abnormal ECG When compared with ECG of 26-Feb-2025 02:32, T wave inversion less evident in Lateral leads Confirmed by Romaine Tay ([id number]) on 02/28/2025 6:05:46 AM Referred By: REFERRED SELF Confirmed By: Romaine Tay
[2025-02-28 07:34] LABS: Calcium 9.3 mg/dl (8.6-10.3)
[2025-02-28 07:39] LABS: BUN Creatinine Ratio 23.7 (10-20); Creatinine Clr Calc Pharmacy 58.7 ml/min
[2025-02-28 08:00] LABS: Troponin I High Sensitivity 989.8 pg/ml (0-20)
--- NOTE | 2025-02-28 10:28 | Hospitalist Progress Note ---
Date of Service February 28, 2025 Assessment & Plan (1) RSV bronchitis: (2) COPD exacerbation: (3) Acute hypoxemic respiratory failure: (4) CAD (coronary artery disease): (5) Chronic heart failure with preserved ejection fraction (HFpEF): (6) CKD (chronic kidney disease), stage III: Plan This is a 84 yr old M with a significant PMH of COPD, HTN, HLD, moderate to severe aortic stenosis, Chronic HFpEF, CKD-3, macular degeneration who presented to ED 2/2 worsening SOB, Respiratory sx and hypoxia. Pt tested + for RSV in ED. Echo 02/27/25 LV normal in size, mild LVH, LVEF 50-55%, large sized apical, septal and anterosteptal wall motion abn with hypokinesis of segments, moderately severe , mild MR. This is unchanged from prior echo #Acute hypoxemic resp failure #COPD with exac in setting of RSV bronchitis #Metabolic encephalopathy in setting of hypoxia #CAP pt admitted to [facility] --CXR/Chest CT: lower lobe predominant tree-in-bud nodular opacities concerning for developing bronchopneumonia --Soft tissue neck CT: unremarkable continue oxygen supplementation, encourage pulm toilet with incentive spirometer, flutter valve, scheduled nebs, muccinex Daily IV solu medrol, IV Ceftriaxone, Day #2, Azithromycin day #2 await sputum culture, MRSA negative #NSTEMI, type 2 in setting of demand ischemia, hypoxia #Mod-Severe Aortic Stenosis #CAD #Chronic HFpEF pt appears euvolemic trops peaked 1147pg/ml, down to 989.9 today, again demand related no acute event, pt w/o CP and ecg/echo unchanged BNP up to 909, will consider low dose IV Diuresis if oxygen requirement worsens -continue statin, plavix, metoprolol #HTN: Bp mostly controlled, continue metoprolol #HLD: chronic, stable, continue statin #Iron Def Anemia: h/h 10.4 and 33.3, recent outpt labs reveal iron def with iron 21 and ferritin 26, T sat 5%. PCP following and /pt prefer increased iron in diet vs supplement. Would recommend considering outpt IV Iron infusions once acute illness resolved #DVT ppx: add SQ Lovenox DNR/DNI PCP: [place] Dispo: pt admitted to [facility], he has remained stable on tele, will downgrade to medical Pt was seen and examined in collaboration with Dr. Pearson, please see addendum I spent a total of 55 minutes coordinating, documenting and providing care for this patient excluding time spent in the performance of separately billed services or time spent by another provider/QHP. Admission and Anticipated Discharge Date Admission Date: February 26, 2025 Supervising Physician Co-Signing Physician Notes Patient doing better today, feeling less short of breath and more comfortable. Continue supportive care as above. Steroids/duonebs, abx for aspiration pneumonitis/pneumonia, avoid anticholinergics. May need to go home with oxygen. If not improvement tomorrow may need pulmonary consultation. I have seen and discussed the case with the collaborating advanced practitioner. I agree with the above H&P. I have reviewed and confirmed the patients medical history, the findings on physical examination, and the patients diagnosis and treatment plan with Mirna Epstein PA-C and agree with the information documented. I spent a total of 20 minutes coordinating, documenting, and providing care for this patient excluding time spent in the performance of separately billed services. All of the aforementioned completed outside of collaborating with the assigned advanced practitioner for a full treatment plan. I have reviewed the advanced practitioner's documentation, and I agree with, and take responsibility for the plan of care Subjective Pt was seen and examined in room 251-1. He was sitting up in bedside chair. He reports feeling about 50% better. Feels his SOB is improving. He still has a productive cough. Denies CP, f/c/s, dizziness, lightheaded, n/v. He is moving bowels. He had an ISP at beside but hasn't been using it. Review of Systems Review of Systems: All systems reviewed & are unremarkable except as noted in HPI & below Physical Exam Physical Exam: Gen: Elderly, chronically ill appearing, sitting up in bedside chair, NAD, On 3L via NC, A&O x3 HEENT: Normocephalic, atraumatic, conjunctivae moist, sclerae anicteric, mucous membranes moist. Lung: Diminished BS throughout, but otherwise clear bilaterally with decreased aeration throughout, no wheezes/rales/rhonchi Heart: Regular rate, regular rhythm, no murmurs, rubs, or gallops Abdomen: Soft, NT, ND +BS x 4 Extremities: No edema Skin: Warm, no rash, negative turgor. Results & Data Results & Data Vital Signs (Past 12 Hours) Vital Signs Temp Pulse Pulse Resp BP BP Pulse Ox 02/28/25 08:00 02/28/25 07:40 37.1 C 95 H 18 127/72 93 02/28/25 07:19 95 H 02/28/25 07:15 94 H 20 93 02/28/25 03:37 36.6 C 89 20 132/74 93 02/28/25 00:16 100 H 20 92 02/27/25 23:39 36.8 C 91 H 20 109/66 95 02/27/25 22:48 93 H O2 Del Method O2 Flow Rate 02/28/25 08:00 Nasal Cannula 4 02/28/25 07:40 High Flow Nasal Cannula 3 02/28/25 07:19 02/28/25 07:15 Nasal Cannula 3 02/28/25 03:37 Nasal Cannula 3 02/28/25 00:16 Nasal Cannula 3 02/27/25 23:39 Nasal Cannula 3 02/27/25 22:48 Laboratory Results I have independently reviewed and interpreted patient's bmp, trop Medications Administered Current Inpatient Medications Acetaminophen (Acetaminophen 325 Mg Tab) 650 mg PO QID PRN PRN Reason: pain/fever Stop: 03/28/25 05:40 Last Admin: 02/27/25 07:28 Dose: 650 mg Atorvastatin Calcium (Atorvastatin 40 Mg Tab) 80 mg PO QPM OPAL Stop: 03/28/25 20:59 Last Admin: 02/27/25 20:47 Dose: 80 mg Benzonatate (Benzonatate 100 Mg Capsule) 100 mg PO TID OPAL Stop: 03/28/25 13:59 Last Admin: 02/28/25 09:33 Dose: 100 mg Clopidogrel Bisulfate (Clopidogrel Bisulfate 75 Mg Tab) 75 mg PO QAM OPAL Stop: 03/28/25 08:59 Last Admin: 02/28/25 09:33 Dose: 75 mg Gabapentin (Gabapentin 300 Mg Cap) 300 mg PO HS OPAL Stop: 03/28/25 20:59 Last Admin: 02/27/25 20:47 Dose: 300 mg Guaifenesin (Guaifenesin 600 Mg Tabcr) 600 mg PO Q12 OPAL Stop: 03/28/25 12:24 Last Admin: 02/28/25 09:32 Dose: 600 mg Methylprednisolone 40 mg/ (Syringe) 0.64 mls @ 1.5 mls/min IV DAILY OPAL Stop: 03/29/25 08:59 Last Admin: 02/28/25 09:31 Dose: 1.5 mls/min Ceftriaxone Sodium (Rocephin) 2,000 mg in 50 mls @ 100 mls/hr IV Q24H [facility]AL Stop: 03/04/25 16:29 Last Infusion: 02/27/25 17:35 Dose: Infused Azithromycin (Zithromax) 500 mg in 255 mls @ 127.5 mls/hr IV Q24H [facility] Stop: 03/04/25 16:29 Last Infusion: 02/27/25 19:43 Dose: Infused Ipratropium Villanueva (Ipratropium [place]va Neb Soln 0.02% 0.5mg/2.5ml Vial) 0.5 m g INH Q6R [facility] Stop: 03/28/25 07:59 Last Admin: 02/28/25 07:14 Dose: 0.5 mg Levalbuterol HCl (Levalbuterol 1.25 Mg/3 Ml Neb) 1.25 mg NEB Q6R [facility] Stop: 03/28/25 07:44 Last Admin: 02/28/25 07:14 Dose: 1.25 mg Melatonin (Melatonin 3 Mg Tab) 3 mg PO HS PRN PRN Reason: Sleep Stop: 03/29/25 00:35 Last Admin: 02/27/25 20:47 Dose: 3 mg Metoprolol Succinate (Metoprolol Succ 25mg Ext Rel Tab) 25 mg PO QAM [facility] Stop: 03/29/25 08:59 Last Admin: 02/27/25 07:22 Dose: 25 mg Pantoprazole Sodium (Pantoprazole 40 Mg Tab) 40 mg PO QAM [facility] Stop: 03/28/25 08:59 Last Admin: 02/28/25 09:31 Dose: 40 mg
[2025-02-28] MEDS: COUGH DROP (SUGAR FREE) LOZ 24 LOZ/1 BOX BUCCAL STA (17:24)
[2025-02-28] MEDS: AZITHROMYCIN 250 MG TAB PO SCH (17:24)
[2025-02-28] MEDS: ENOXAPARIN INJ 40 MG/0.4 ML SYR SQ SCH (20:33)
[2025-03-01 05:44] LABS: Hematocrit (blood only) 29.7 % (42.0-52.0); Hemoglobin 9.2 g/dl (14.0-18.0); Immature Granulocytes # (auto) 0.02 K/uL (0.01-0.20); Immature Granulocytes % (auto) 0.4 %; Lymphocytes # (auto) 0.63 K/uL (1.20-3.40); Lymphocytes % (auto) 12.5 %; Mean Corpuscular Hemoglobin 27.3 pg (25.0-34.0); Mean Corpuscular Volume 88.1 fL (80.0-100.0); Mean Platelet Volume 11.2 fL (9.4-12.4); Monocytes # (auto) 0.29 K/uL (0.11-0.59); Monocytes % (auto) 5.7 %; Neutrophils # (auto) 4.11 K/uL (1.40-6.50); Neutrophils % (auto) 81.4 %; Platelet Count 115 K/uL (130-400); RDW Standard Deviation 55.3 fL (36.4-46.3); Red Blood Count 3.37 M/uL (4.70-6.10); White Blood Count 5.05 K/ul (4.8-10.8)
[2025-03-01 05:55] LABS: BUN Creatinine Ratio 26.9 (10-20); Calcium 8.7 mg/dl (8.6-10.3); Creatinine Clr Calc Pharmacy 47.9 ml/min; Magnesium 2.2 mg/dl (1.7-2.4); Potassium 4.7 mmol/L (3.5-5.1)
[2025-03-01 08:01] LABS: Base Excess VBG 2.3 mEq/L; HCO3 VBG 29 mmol/L; Oxygen Saturation VBG < 60.0 %; PCO2 VBG 52 mmHg (38-50); PO2 VBG 24 mmHg; pH VBG 7.35 (7.36-7.41)
--- NOTE | 2025-03-01 10:18 | Hospitalist Progress Note ---
Date of Service March 01, 2025 Assessment & Plan (1) RSV bronchitis: (2) COPD exacerbation: (3) Acute hypoxemic respiratory failure: (4) CAD (coronary artery disease): (5) Chronic heart failure with preserved ejection fraction (HFpEF): (6) CKD (chronic kidney disease), stage III: Plan This is a 84 yr old M with a significant PMH of COPD, HTN, HLD, moderate to severe aortic stenosis, Chronic HFpEF, CKD-3, macular degeneration who presented to ED 2/2 worsening SOB, Respiratory sx and hypoxia. Pt tested + for RSV in ED. Echo 02/27/25 LV normal in size, mild LVH, LVEF 50-55%, large sized apical, septal and anterosteptal wall motion abn with hypokinesis of segments, moderately severe , mild MR. This is unchanged from prior echo #Acute hypoxemic resp failure #COPD with exac in setting of RSV bronchitis #Metabolic encephalopathy in setting of hypoxia #CAP pt admitted to [facility] --CXR/Chest CT: lower lobe predominant tree-in-bud nodular opacities concerning for developing bronchopneumonia --Soft tissue neck CT: unremarkable continue oxygen supplementation, encourage pulm toilet with incentive spirometer, flutter valve, scheduled nebs, muccinex Daily IV solu medrol, IV Ceftriaxone, Day #3, Azithromycin day #3 await sputum culture, MRSA negative 03/01: Pt is overall improving - it was documented at 0700 this a.m. he was requiring 8L; spoke with nursing who is unsure how it got to 8L. He was returned to 3L and tolerating well Discussed with pt Goal for today is to work with incentive spirometer and to try to wean oxygen, encourage ambulation I anticipate he would be ready for discharge over weekend if we can wean oxygen further; otherwise recommend 2 step and discharge with oxygen in next 1-2 days Will give Lasix 20mg IV x 1 today as well as pt is 2L + per I and O chart if accurate. Giving gentle dose in setting of , consider additional dosing over weekend, weights have been around ~ 80kg #NSTEMI, type 2 in setting of demand ischemia, hypoxia #Mod-Severe Aortic Stenosis #CAD #Chronic HFpEF pt appears euvolemic trops peaked 1147pg/ml, down to 989.9 today, again demand related no acute event, pt w/o CP and ecg/echo unchanged BNP up to 909, -continue statin, plavix, metoprolol -Will give Lasix IV 20mg x 1 today in attempt to improve oxygenation given elevated BNP and continued O2 requirement #HTN: Bp mostly controlled, 111/71 today, continue metoprolol #HLD: chronic, stable, continue statin #Iron Def Anemia: hgb 9.2 today, recent outpt labs reveal iron def with iron 21 and ferritin 26, T sat 5%. PCP following and /pt prefer increased iron in diet vs supplement. Would recommend considering outpt IV Iron infusions once acute illness resolved. Discussed this with and she agrees #DVT ppx: SQ Lovenox DNR/DNI PCP: [place] Dispo: pt admitted to med [facility], his tele was discontinued on 02/28 though appears still on, communicated with nurse to d/c; Pt improving over last 2 days, I suspect he will be ready to go over the weekend with or without O2. Will encourage nursing to walk patient BID, PT/OT recommending home services Pt was seen and examined in collaboration with Dr. Pearson, please see addendum I spent a total of 45 minutes coordinating, documenting and providing care for this patient excluding time spent in the performance of separately billed services or time spent by another provider/QHP. Discussed with Tiffanie over the phone and updated regarding assessment and tx plan and she agrees with above. Admission and Anticipated Discharge Date Admission Date: February 26, 2025 Supervising Physician Co-Signing Physician Notes Patient seen and examined at bedside. Downtitrated oxygen to 1L, satting around 90% on this saturation. On exam, much better air movement today, no wheezing noted. Suspect slow improvement of reactive airway disease in setting of RSV infection. Will likely need oxygen at home for a time, with exertion. Ordering walking p ulse ox test. I have seen and discussed the case with the collaborating advanced practitioner. I agree with the above H&P. I have reviewed and confirmed the patients medical history, the findings on physical examination, and the patients diagnosis and treatment plan with Mirna Epstein PA-C and agree with the information documented. I spent a total of 20 minutes coordinating, documenting, and providing care for this patient excluding time spent in the performance of separately billed services. All of the aforementioned completed outside of collaborating with the assigned advanced practitioner for a full treatment plan. I have reviewed the advanced practitioner's documentation, and I agree with, and take responsibility for the plan of care Subjective Pt was seen and examined in room 251-1. He was sitting up in bedside chair. Pt is sitting up in bedside chair stating he is feeling better today. Yesterday he reported he was ~ 50% better, today he feels up to 70%. He has not been using his spirometer. Denies f/c/s, chest pain, sob, n/v/d. He is moving bowels and passing urine. He still has a cough but mostly dry. Review of Systems Review of Systems: All systems reviewed & are unremarkable except as noted in HPI & below Physical Exam Physical Exam: Gen: Elderly, chronically ill appearing, sitting up in bedside chair, NAD, On 3L via NC, A&O x3 HEENT: Normocephalic, atraumatic, conjunctivae moist, sclerae anicteric, mucous membranes moist. Lung: Improved aeration today, diminished in periphery and bases but otherwise clear bilaterally with decreased aeration throughout, no wheezes/rales/rhonchi Heart: Regular rate, regular rhythm, no murmurs, rubs, or gallops Abdomen: Soft, NT, ND +BS x 4 Extremities: No edema Skin: Warm, no rash, negative turgor. Results & Data Results & Data Vital Signs (Past 12 Hours) Vital Signs Temp Pulse Pulse Resp BP Pulse Ox O2 Del Method 03/01/25 07:44 79 18 91 Nasal Cannula 03/01/25 07:36 91 High Flow Nasal Cannula 03/01/25 07:04 36.4 C L 71 18 111/71 92 High Flow Nasal Cannula 03/01/25 07:02 75 03/01/25 00:00 86 18 95 Nasal Cannula 02/28/25 23:16 36.3 C L 93 H 18 139/79 93 Nasal Cannula O2 Flow Rate 03/01/25 07:44 3 03/01/25 07:36 3 03/01/25 07:04 8 03/01/25 07:02 03/01/25 00:00 3 02/28/25 23:16 4 Laboratory Results I have independently reviewed and interpreted patient's cbc, bmp, mag Short CBC 03/01/25 Range/Units 05:22 WBC 5.05 (4.8-10.8) K/ul Hgb 9.2 L (14.0-18.0) g/dl Hct 29.7 L (42.0-52.0) % Plt Count 115 L (130-400) K/uL [facility] 03/01/25 05:22 Sodium 138 Potassium 4.7 Chloride 104 Carbon Dioxide 30 BUN 32 H Creatinine 1.19 Glucose 129 H Calcium 8.7 Medications Administered Current Inpatient Medications Acetaminophen (Acetaminophen 325 Mg Tab) 650 mg PO QID PRN PRN Reason: pain/fever Stop: 03/28/25 05:40 Last Admin: 02/27/25 07:28 Dose: 650 mg Atorvastatin Calcium (Atorvastatin 40 Mg Tab) 80 mg PO QPM OPAL Stop: 03/28/25 20:59 Last Admin: 02/28/25 20:33 Dose: 80 mg Azithromycin (Azithromycin 250 Mg Tab) 500 mg PO DAILY OPAL Stop: 03/03/25 09:01 Last Admin: 02/28/25 17:24 Dose: 500 mg Benzonatate (Benzonatate 100 Mg Capsule) 100 mg PO TID OPAL Stop: 03/28/25 13:59 Last Admin: 02/28/25 20:33 Dose: 100 mg Clopidogrel Bisulfate (Clopidogrel Bisulfate 75 Mg Tab) 75 mg PO QAM [facility] Stop: 03/28/25 08:59 Last Admin: 02/28/25 09:33 Dose: 75 mg Enoxaparin Sodium (Enoxaparin Inj 40 Mg/0.4 Ml Syr) 40 mg SQ HS OPAL Stop: 03/30/25 20:59 Last Admin: 02/28/25 20:33 Dose: 40 mg Gabapentin (Gabapentin 300 Mg Cap) 300 mg PO HS OPAL Stop: 03/28/25 20:59 Last Admin: 02/28/25 20:33 Dose: 300 mg Guaifenesin (Guaifenesin 600 Mg Tabcr) 600 mg PO Q12 OPAL Stop: 03/28/25 12:24 Last Admin: 02/28/25 20:33 Dose: 600 mg Methylprednisolone 40 mg/ (Syringe) 0.64 mls @ 1.5 mls/min IV DAILY OPAL Stop: 03/29/25 08:59 Last Admin: 02/28/25 09:31 Dose: 1.5 mls/min Ceftriaxone Sodium (Rocephin) 2,000 mg in 50 mls @ 100 mls/hr IV Q24H [facility] Stop: 03/04/25 16:29 Last Infusion: 02/28/25 17:52 Dose: Infused Ipratropium Manly (Ipratropium [place] Neb Soln 0.02% 0.5mg/2.5ml Vial) 0.5 mg INH Q6R [facility] Stop: 03/28/25 07:59 Last Admin: 03/01/25 07:44 Dose: 0.5 mg Levalbuterol HCl (Levalbuterol 1.25 Mg/3 Ml Neb) 1.25 mg NEB Q6R [facility] Stop: 03/28/25 07:44 Last Admin: 03/01/25 07:44 Dose: 1.25 mg Melatonin (Melatonin 3 Mg Tab) 3 mg PO HS PRN PRN Reason: Sleep Stop: 03/29/25 00:35 Last Admin: 02/27/25 20:47 Dose: 3 mg Menthol (Cough Drop (Sugar Free) Salima 24 Salima/1 Box) 1 salima BUCCAL Q2H PRN PRN Reason: Sore Throat Stop: 03/30/25 11:07 Metoprolol Succinate (Metoprolol Succ 25mg Ext Rel Tab) 25 mg PO [facility] Stop: 03/29/25 08:59 Last Admin: 02/28/25 09:15 Dose: 25 mg Pantoprazole Sodium (Pantoprazole 40 Mg Tab) [facility] Stop[facility] 03/28/25 08:59 Last Admin: 02/28/25 09:31 Dose: 40 mg
[2025-03-01] MEDS: FUROSEMIDE INJ 20 MG/2 ML VIAL IV ONE (12:29)
[2025-03-01 19:51] VITALS: TEMP 97.5
[2025-03-02] MEDS: COUGH DROP (SUGAR FREE) LOZ 24 LOZ/1 BOX BUCCAL PRN (05:32)
[2025-03-02 06:50] LABS: Hemoglobin 10.3 g/dl (14.0-18.0); Mean Corpuscular Hemoglobin 27.1 pg (25.0-34.0); Mean Corpuscular Hgb Conc 31.2 g/dL (32.0-36.0); Mean Corpuscular Volume 86.8 fL (80.0-100.0); Mean Platelet Volume 11.7 fL (9.4-12.4); Platelet Count 152 K/uL (130-400); RDW Coefficient of Variation 16.9 % (11.5-14.5); RDW Standard Deviation 54.3 fL (36.4-46.3); White Blood Count 5.42 K/ul (4.8-10.8)
[2025-03-02 07:14] LABS: BUN Creatinine Ratio 30.7 (10-20); Calcium 9.1 mg/dl (8.6-10.3); Creatinine Clr Calc Pharmacy 49.8 ml/min; Magnesium 2.2 mg/dl (1.7-2.4); Potassium 4.5 mmol/L (3.5-5.1)
[2025-03-02 07:16] VITALS: RESP 18
[2025-03-02] MEDS: predniSONE 20 MG TAB PO SCH (07:41)
--- NOTE | 2025-03-02 11:00 | Discharge Summary ---
Discharge Summary Date of Service March 02, 2025 Principal Dx & Hospital Course #1 = Principal Diagnosis (1) RSV bronchitis: (2) COPD exacerbation: (3) Acute hypoxemic respiratory failure: (4) CAD (coronary artery disease): (5) Chronic heart failure with preserved ejection fraction (HFpEF): (6) CKD (chronic kidney disease), stage III: Plan This is a 84 yr old M with a significant PMH of COPD, HTN, HLD, moderate to severe aortic stenosis, Chronic HFpEF, CKD-3, macular degeneration who presented to ED 2/2 worsening SOB, Respiratory sx and hypoxia. Was founf to have acute hypoxic respiratory failure in setting of RSV bronchitis, CAP and COPD exacerbation. CXR/Chest CT: lower lobe predominant tree-in-bud nodular opacities concerning for developing bronchopneumonia. Was treated with Ceftriaxone/azithromycin and daily steroids with significant improvement. Is still requiring oxygen and 2 step was completed with recommendation for 2 L NC O2 at rest and with ambulation. Noted to have elevated troponin on admission that peaked and was felt to be demand related without an acute event. Echo was repeated on 02/27/25 and showed - LV normal in size, mild LVH, LVEF 50-55%, large sized apical, septal and anterosteptal wall motion abn with hypokinesis of segments, moderately severe , mild MR, which was unchanged from prior. Recent outpatient iron studies demonstrated iron deficiency and /patient prefer increasing iron sources in diet vs. supplementation. Recommend considering outpatient iron infusion per PCP as needed once acute illness subsides. Case management assistance in coordinating home oxygen and home health services. updated on medical plan. Complete remaining course of antibiotics, continue Mucinex and PRN Tessalon Perles. Continue home O2 at 2L NC at rest/ambulation. Patient comfortable and hemodynamically stable. Notes For Next Care Provider Acute hypoxic failure 2/2 RSV bronchitis, CAP, COPD exacerbation. 2 step shows 2 L NC O2 requirement Medication Changes From Visit 50 Admission HPI Per Admitting Provider History obtained from patient and records. Medical history significant for chronic diastolic heart failure (EF 50%, TTE 2023), CAD, valvular heart disease (moderate to severe , mild AR), hyp ertension, hyperlipidemia, prediabetes, chronic anemia (baseline hemoglobin 8- 9), past tobacco abuse. Recent confinement last December 2024 for COPD exacerbation. 3 days history of cough symptoms compatible of clear sputum. Denies chest pain, worsening SOB. Sick contact at home. Patient seen at ER 2 days ago. RSV swab negative. Patient discharged home and instructed to follow-up with PCP. Patient returned to ER for evaluation due to worsening symptoms. Solu-Medrol given by EMS en route to ER. Denies chest pain or fluid retention. Lowest O2 sats of 80s documented at the ER. 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 Admission Exam Per Admitting Provider GENERAL: Comfortable, pleasant, slightly hard of hearing, no respiratory distress SKIN: Pallor, warm HEENT: Pale palpebral conjunctivae, no ptosis, dry buccal mucosa, nasal cannula in place NECK : Supple, no tenderness CHEST : Decreased breath sounds, expiratory wheezes, no tenderness HEART : RRR, systolic murmur best heard over second right intercostal space ABDOMEN: Some distention, nontender EXTREMITIES : No LE swelling/tenderness, no other conspicuous deformities noted NEUROLOGIC : Coherent, no facial asymmetry, slightly hard of hearing, gait and stance not assessed Discharge Exam Gen: WD/WN, NAD, sitting in bedside chair, A&Ox3, supplemental O2 in place HEENT: Normocephalic, atraumatic, conjunctivae moist, sclerae anicteric, mucous membranes moist Lung: Clear to Auscultation bilaterally but diminished, no wheezes/rales/rhonchi Heart: Regular rate, regular rhythm, +PERLITA Abdomen: Soft, NT, ND +BS x 4 Extremities: no edema Skin: Warm, no rash Updated Medication List Medication Instructions Recorded Confirmed Type acetaminophen 500 mg tablet 1,000 mg PO Q6H PRN Pain 10/10/21 02/26/25 History (Tylenol Extra Strength) clopidogrel 75 mg tablet 75 mg PO QAM 09/17/22 02/26/25 History metoprolol succinate 25 mg 25 mg PO QAM 09/17/22 02/26/25 History tablet,extended release 24 hr nitroglycerin 0.4 mg sublingual 0.4 mg sublingual UD PRN Chest Pain 09/17/22 02/26/25 History tablet atorvastatin 80 mg tablet 80 mg PO QPM 11/06/22 02/26/25 History pantoprazole 40 mg tablet,delayed 40 mg PO QAM 09/20/23 02/26/25 History release gabapentin 300 mg capsule 300 mg PO UD 01/17/25 02/26/25 History ipratropium 0.5 mg-albuterol 3 mg 3 ml inhalation Q6 PRN Shortness 02/24/25 02/26/25 History (2.5 mg base)/3 mL nebulization Of Breath soln vitamins A,C,M-bvgh-mmgnqn 4,296 1 cap PO QAM 02/24/25 02/26/25 History mcg-226 mg-90 mg capsule (PreserVision AREDS) amoxicillin 875 mg-potassium 1 tab PO BID #4 tabs 03/02/25 Rx clavulanate 125 mg tablet azithromycin 500 mg tablet 500 mg PO DAILY 2 days #2 tabs 03/02/25 Rx (Zithromax) benzonatate 100 mg capsule 100 mg PO TID #10 caps 03/02/25 Rx guaifenesin 600 mg tablet, 600 mg PO Q12 #10 tabs 03/02/25 Rx extended release 12 hr (Mucinex) Hospital Stay Data Consultations 02/26/25 03:20 ED Decision to Admit Stat Diagnostic Imagining Performed 02/26/25 05:40 CT angio chest PE protocol Stat 02/27/25 13:52 CT chest diagnostic w con Urgent CT soft tissue neck w con Urgent Pending Results Patient Have Any Pending Studies at Discharge: No Discharge Instructions Given to Patient (Per Discharging Provider) You were admitted to hospital and found to have RSV bronchitis, pneumonia and COPD exacerbation. Please continue to require 2 L supplemental oxygen and a script as been sent to [facility] for home oxygen equipment. Please continue Augmentin and azithromycin (antibiotics) to complete treatment course. A 5 day course of steroids was completed during admission. Continue Tessalon perles up to 3x/day as needed for cough and Mucinex twice a day x 5 days for congestion. Okay to continue after that as needed. RECOMMENDATIONS FOR FOLLOW-UP: Follow up with PCP Dr. Mason on 03/05/2025 at 4:00 PM. Complete antibiotic in its entirety. Continue medication regimen as scheduled aside from changes noted above. OTHER INSTRUCTIONS: Seek medical attention if you have: * temperature above 101 * chest pain or trouble breathing * abdominal pain, nausea, vomiting * diarrhea, dark stools or bloody stools * any unanswered questions or concerns Call 911 if symptoms are severe. Please take good care of yourself. Call if you have any questions or problems. You can reach a [facility] hospitalist on duty at [facility] [address] 24 hours a day by calling [phone]. Total Time Total Time Spent Total Time Spent (In Minutes): 50 Supervising Physician Co-Signing Physician Notes Patient seen and examined at bedside. Patient doing well today and would like to go home. On exam, satting 90-92% on 2L, fair air movement bilaterally. 2-step performed, requires oxygen at rest and with movement. Ordered oxygen for home. will need close follow up with PCP, finish abx course. I have seen and discussed the case with the collaborating advanced practitioner. I agree with the above H&P. I have reviewed and confirmed the patients medical history, the findings on physical examination, and the patients diagnosis and treatment plan with Angella Loza PA-C and agree with the information documented. I spent a total of 20 minutes coordinating, documenting, and providing care for this patient excluding time spent in the performance of separately billed services. All of the aforementioned completed outside of collaborating with the assigned advanced practitioner for a full treatment plan. I have reviewed the advanced practitioner's documentation, and I agree with, and take responsibility for the plan of care
[2025-03-02 12:26] VITALS: BP 109/66; PULSE 92; O2SAT 97
== END 2025-03-02 14:40 | disposition home health service (06) | DRG 189 ==
LOC: ED 02:04 → EDINP 04:59 → SUATTDRO 04:59 → 2W 07:54